=== PATIENT | female | born 1995 | race Caucasian/White ===

== ENCOUNTER 2017-08-13 23:29 | Emergency (ER) | payer OTHER, SELFPAY ==
--- NOTE | 2017-08-13 12:35 | RAD_ITS ---
STUDY: X-RAY CHEST REASON FOR EXAM: Female, 22 years old. Cough, shortness of breath, lightheadedness, chest pressure. Recent history of bronchitis. TECHNIQUE: PA and lateral chest. COMPARISON: None. FINDINGS: The lungs are clear and expanded. There is no demonstrated pleural abnormality. Normal size heart. Normal mediastinum and milagro. Normal visualized pulmonary arteries. Normal visualized aortic arch and descending thoracic aorta. Normal visualized thoracic spine. Normal visualized ribs, clavicles, and shoulders. There is no demonstrated abnormality of the visualized soft tissue structures of the upper abdomen. RAD/Chest PA and Lateral IMPRESSION: Normal x-ray examination of the chest. Electronically Signed: Lowell Mora MD at 0:50 EDT , Service support ,
[2017-08-13 23:30] VITALS: BP 120/88; PULSE 78; RESP 15; TEMP 36.7; O2SAT 98; BMI 23.3
--- NOTE | 2017-08-13 23:54 | ED.DCSUM_ITS ---
- ER Visit Summary Date of Service: 08/13/17 Chief Complaint: Two-week history of a cough. History of Present Illness: The patient is a 22 F history of exercise-induced asthma and vocal cord dysfunction. He states for the last 2 weeks she has had a productive cough. Of greenish sputum at times with hard coughing blood- tinged but that is since resolved. No fever. She just feels like she cannot take a deep breath. She was seen at an area urgent care was placed on a medication which she is unsure what it was but she took it 3 times a day it sounds like it may have been amoxicillin. That is now finished. She is not getting better. Feels like she cannot take a deep breath. No chest pain. No abdominal pain. No vomiting or diarrhea. Physical Examination: Well appearing young female. Vital signs are stable afebrile. Her pulse ox is 90% on room air no hypoxia. No distress. H EENT exam unremarkable moist mucous membranes. Neck nontender no lymphadenopathy. No meningismus. Lungs dry hacking cough bilaterally. However no rales, rhonchi or wheezing at this time. Equal and symmetrical. Heart regular rhythm no murmur rate about 70. Abdomen is soft and nontender. Normal bowel sounds no peritoneal signs. She is moving all 4 extremities. They are neurovascularly intact. The lower extremities are nontender without edema or cords. Calves are nontender. Back exam nontender. Neurologically she is awake and alert. Test Results: Chest x-ray two-view shows Emergency Department Course and Treatment: Patient treated with p.o. Hycodan for the cough. A DuoNeb aerosol treatment. Treatment Plan: Patient will be treated as a viral bronchitis. She does not need antibiotics. She will be written for Hycodan for her cough. Disposition: Discharge Impression: Acute viral bronchitis This note was generated with [employer] dictation software. It may contain incorrect words, spelling, and punctuation that were not noted in review of the chart prior to signing ED Disposition - Plan for ED Patient: Chief Complaint: Asthma Referrals: Randall Naranjo III, MD [Primary Care Provider] -
--- NOTE | 2017-08-13 23:54 | ED.DEP ---
ED Disposition - Plan for ED Patient: Disposition: Home or Assisted Living Chief Complaint: Asthma Prescriptions: Hydrocodone Bit/Homatropine [Hycodan Syrup] 10 ml GT Q6H PRN PRN #100 udc PRN Reason: Cough Referrals: Randall Naranjo III, MD [Primary Care Provider] - 10-14 Days if not better Additional Instructions: Plenty of fluids and rest Hycodan cough syrup as needed. This has codeine in it. Do not use a cough syrup and then drive. Can use 5-10 mL time. This should also help her sleep. This may last 1-2 more weeks. Clinically and historically this appears to be a viral syndrome and needs no antibiotic treatment will not be beneficial.
[2017-08-13] MEDS: Ipratropium/Albuterol Sulfate 3 ML AMPUL.NEB INHALATION (23:56)
[2017-08-13 23:57] VITALS: PULSE 98; RESP 15
[2017-08-14 00:58] VITALS: PULSE 93; RESP 18; O2SAT 97
== END 2017-08-14 00:59 | disposition home or self-care (01) ==
PROVIDERS: Emergency Provider Emergency Medicine; Family Provider Family Medicine; PCP Family Medicine
DX: J20.8 Acute bronchitis due to other specified organisms (principal); J45.909 Unspecified asthma, uncomplicated
CPT/HCPCS: 71046; 94640; 99282

== ENCOUNTER → 2024-02-13 | Outpatient (CLI) | payer BC, SELFPAY ==
[2024-02-20 18:05] LABS: HPV Reflexed? NOT INDICATED
== END | disposition home or self-care (01) ==
LOC: US 02-14 15:47 → LABSPEC 02-21 16:49
PROVIDERS: Referring Provider Nurse Practitioner Family; Visit Provider Nurse Practitioner Family
DX: Z12.4 Encounter for screening for malignant neoplasm of cervix (principal)
CPT/HCPCS: 88175; G0145

== ENCOUNTER → 2024-02-15 | Outpatient (CLI) | payer BC, SELFPAY ==
--- OUTSIDE RECORDS SUMMARY | 2024-02-15 07:06 | XMS RPT_ITS | CCD ---
Author Organization [facility] Inform ion Partnership [facility] Care Team Providers Care Wellness Nurse Name Role Phone Jose A ODELL MD, Rody Slade Primary Care Provider Radha rosibel Betancourt MD, Kyle Arriola Primary Care Provider Bridenthal SANDIP, Joaquina Primary Care Provider NANCY ORDOÑEZ Attending Unavailable BRIDENTHAL, JOAQUINA Primary Care Unavailable DIVYA NATION Attending Unavail able RODY NARANJO III Primary Care Unavailable BRIDENTHAL, JOAQUINA Primary Care Unavailable ORDOÑEZ, NANCY Attending Unavailable BRIDENTHAL, JOAQUINA Primary Care Unavailable ORDOÑEZ NANCY Attending Unavailable ORDOÑEZ, NANCY Referring Unavailable BRIDENTHAL, JOAQUINA Primary Care Unavailable BRIDENTHAL, JOAQUINA Attending Unavailable RASHIDA, KYLE Primary Care Unavailable BRIDENTHAL, JOAQUINA Attending Unavailable RASHIDA, KYLE Primary Care Unavailable BRIDENTHAL, JOAQUINA Attending Unavailable RASHIDA, KYLE Primary Care Unavailable BRIDENTHAL, JOAQUINA Attending Unavailable RASHIDA, KYLE Primary Care Unavailable BRIDENTHAL, JOAQUINA Attending Unavailable RASHIDA, KYLE Primary Care Unavailable Allergies Allergy Classification Reported Allergen(s) Allergy Type Date of Onset Reaction(s) Facility (16 sources) Grass pollen; Translations: [GRASS POLLEN] Drug Allergy 3 Unknown, Other: See Comments [facility] (16 sources) Seasonal allergy; Translations: [SEASONAL ALLERGIES] Allergy to substance 3 Unknown, Other: See Comments [facility] (16 sources) Tree; Translations: [TREES] Allergy to substance 3 Unknown, Other: See Comments [facility] (6 sources) Grass pollen Drug Allergy 3 Unknown [facility] (6 sources) Other Allergy to substance 3 Unknown [employer] (1 source) Pollen Allergy to substance 3 Other [facility] [place] [facility] Medications Current Medications Medication Drug Class(es) Dates Sig (Normalized) Sig (Original) 24 hr buPROPion hydrochloride 300 mg extended release oral tablet (7 sources) Aminoketone Start: 09-08-2023 take 1 tablet by mouth once daily in the morning buPROPion XL (Wellbutrin XL) 300 MG 24 hr tablet Indications: Anxiety and depression take 1 tablet by mouth every morning DO NOT CRUSH, CHEW, AND/OR DIVIDE 30 tablet 2 09/08/2023 Active Start: 05-16-2023 End: 07-15-2023 take 1 tablet by mouth once daily in the morning buPROPion XL (WELLBUTRIN XL) 150 mg 24 hr tablet Take 150 mg by mouth every morning. 0 05/16/2023 Active Comment on above: Take 150 mg by mouth every morning. Desogestrel / Ethinyl Estradiol (2 sources) Progestin, Estrogen Start: 4 End: 5 take 1 tablet by mouth once daily, then take 0.15 tablet by mouth once Desogestrel-Ethinyl Estradiol (APRI) 0.15-0.03 mg per tablet Indications: PCOS (polycystic ovarian syndrome) , Provided repeat prescription for oral contraceptive Take 1 tablet by mouth once daily. 84 tablet 3 07/14/2023 06/14/2024 Active take 1 tablet by mouth once sarah y Juleber 0.15-30 MG-MCG tablet Take 1 tablet by mouth daily. 0 Active Comment on above: Take 1 tablet by pablo once daily. metFORMIN hydrochloride 500 mg oral tablet (6 sources) Biguanide Start: 4 End: 4 take 2 tablets by mouth twice daily at mealtime metFORMIN (GLUCOPHAGE) 500 mg tablet Indications: PCOS (polycystic ovarian syndrome) , IFG (impaired fasting glucose) , Irregular menses , Overweight with body mass index (BMI) of 29 to 29.9 in adult Take 2 tablets by mouth two times a day with meals. 360 tablet 0 06/16/2023 09/14/2023 Active Start: 05-18-2023 End: 08-16-2023 take 1 tablet by mouth in the morning metFORMIN (Glucophage) 500 MG tablet Take 1 tablet by mouth in the morning and 1 tablet in the evening. Take with meals. 0 05/18/2023 Active Comment on above: Take 2 tablets by mo uth two times a day with meals. Take 1 tablet by pablo th two times a day with meals. naltrexone hydrochloride 50 mg oral tablet (2 sources) Opioid Antagonist Start: 4 End: 4 take 0.5 tablet by mouth twice daily naltrexone 50 mg tablet Indications: PCOS (polycystic ovarian syndrome) , Overweight with body mass index (BMI) of 29 to 29.9 in adult Take 0.5 tablets by mouth two times a day. 90 tablet 0 07/14/2023 10/12/2023 Active naltrexone (Depa de) 50 MG tablet Take 25 mg by mouth in the morning and 25 mg in the evening. 0 Active Comment on above: Take 0.5 tablets by mouth two times a day. Gtfcjjxd-Irr-Zw-FA (/IRON PO) (3 sources) take 1 tablet by mouth once in the morning Phxojolv-Qna-Np-FA (/IRON PO) Take 1 tablet by mouth in the morning. 0 Active Completed/Discontinued Medications Medication Drug Class(es) Dates Sig (Normalized) Sig (Original) [id number] 200 actuat albuterol 0.09 mg/actuat metered dose inhaler (15 sources) beta2-Adrenergic Agonist Start: 03-19-2019 take 2 puff(s) by inhalation every four hours as needed albuterol HFA (PROVENTIL HFA, VENTOLIN HFA) 90 mcg/actuation inhaler Indications: Exertional asthma Inhale 2 Puffs as instructed every 4 hours as needed. 1 Inhaler 0 03/19/2019 Active Comment on above: Inhale 2 Puffs as in structed every 4 hours as needed. drospirenone / Ethinyl Estradiol (1 source) Progestin, Estrogen Start: 11-29-2022 take 1 tablet by mouth once daily, then take 1 tablet by mouth once Drospirenone-Ethin yl Estradiol (ANTONY, 28,) 3-0.03 mg per tablet Indications: PCOS (polycystic ovarian syndrome) Take 1 tablet by mouth once daily. Take one active pill continuously x 3 months- discard placebo pills 112 tablet 3 11/29/2022 Active Comment on above: Take 1 tablet by pablo th once daily. Take one active pill continuously x 3 months- discard placebo pills escitalopram 20 mg oral tablet (3 sources) Serotonin Reuptake Inhibitor Start: 04-08-2023 End: 05-16-2023 take 1 tablet by mouth once daily escitalopram (Lexapro) 20 MG tablet Indications: Anxiety and depression Take 1 tablet (20 mg) by mouth daily. 30 tablet 1 04/08/2023 05/16/2023 Discontinued (Ineffective) Start: 03-08-2023 End: 06-06-2023 take 1 tablet by mouth once daily escitalopram (Lexapro) 10 MG tablet Indications: Anxiety and depression Take 1 tablet (10 mg) by mouth daily. 30 tablet 1 03/08/2023 06/06/2023 Active Ethinyl Estradiol / Norethindrone (12 sources) Estrogen Start: 10-06-2022 End: 11-29-2022 take 1 tablet by mouth once daily, then take 0.05 tablet by mouth once Norethindrone Acet-Ethinyl Est (,) 1-20 mg-mcg per tablet TAKE 1 TABLET BY MOUTH DAILY 28 tablet 2 10/06/2022 11/29/2022 Discontinued Start: 10-06-2022 take 1 tablet by pablo th once daily, then take 0.05 tablet by mouth once Norethindrone Acet-Ethinyl Est (05/14, ,) 1-20 mg-mcg per tablet TAKE 1 TABLET BY MOUTH DAILY 28 tablet 2 10/06/2022 Active Start: 07-01-2022 End: 10-06-2022 take 1 tablet by mouth once daily, then take 0.05 tablet by mouth once Norethindrone Acet-Ethinyl Est (05/14, ,) 1-20 mg-mcg per tablet TAKE 1 TABLET BY MOUTH DAILY 28 tablet 3 07/01/2022 10/06/2022 Discontinued Start: 07-01-2022 take 1 tablet by pablo th once daily, then take 0.05 tablet by mouth once Norethindrone Acet-Ethinyl Est (,) 1-20 mg-mcg per tablet TAKE 1 TABLET BY MOUTH DAILY 28 tablet 3 07/01/2022 Active Start: 06-30-2022 End: 07-01-2022 take 1 tablet by mouth once daily, then take 0.05 tablet by mouth once Norethindrone Acet-Ethinyl Est (,) 1-20 mg-mcg per tablet TAKE 1 TABLET BY MOUTH DAILY 28 tablet 3 06/30/2022 07/01/2022 Discontinued Start: 10-20-2021 End: 03-30-2022 take 1 tablet by mouth once daily, then take 0.05 tablet by mouth once Norethindrone Acet-Ethinyl Est (,) 1-20 mg-mcg per tablet TAKE 1 TABLET BY MOUTH DAILY 28 tablet 14 10/20/2021 03/30/2022 Discontinued Start: 10-20-2021 take 1 tablet by pablo th once daily, then take 0.05 tablet by mouth once Norethindrone Acet-Ethinyl Est (,) 1-20 mg-mcg per tablet TAKE 1 TABLET BY MOUTH DAILY 28 tablet 14 10/20/2021 Active Start: 05-30-2020 End: 10-20-2021 take 1 tablet by mouth once daily, then take 0.05 tablet by mouth once Norethindrone Acet-Ethinyl Est (,) 1-20 mg-mcg per tablet TAKE 1 TABLET BY MOUTH DAILY TAKES ACTIVE TABLET CONTINUOUSLY 84 tablet 3 05/30/2020 10/20/2021 Discontinued Comment on above: TAKE 1 TABLET BY PABLO TH DAILY TAKES ACTIVE TABLET CONTINUOUSLY TAKE 1 TABLET BY PABLO TH DAILY medroxyPROGESTERone acetate 10 mg oral tablet (4 sources) Progestin Start: 2021 End: 2022 take 1 tablet by mouth once daily medroxyPROGESTERone (PROVERA) 10 mg tablet Take 1 tablet by mouth once daily for 10 days. Or until menses starts. 10 tablet 0 04/13/2022 06/30/2022 Discontinued Comment on above: Take 1 tablet by pablo th once daily for 10 days. Or until menses starts. PNV/iron/folic acid ( UWDBCSP-EHEA-IV ORAL) (2 sources) take 1 tablet by mouth once daily PNV/iron/folic acid ( YATWSLH-LNKG-FE ORAL) Take 1 tablet by mouth once daily. 0 Active Comment on above: Take 1 tablet by pablo th once daily. MV-Min-Fe Fum-FA-DHA ( 1 PO) (6 sources) End: 2023 MV-Min-Fe Fum-FA-DHA ( 1 PO) Take by mouth. 0 09/15/2023 Discontinued (Duplicate order) MV-Min- Fe Fum-FA-DHA ( 1 PO) Take by mouth. 0 Active Problems Active Problems Problem Classification Problem Date Documented Date Episodic/Chronic Anxiety disorders (18 sources) Mixed anxiety and depressive disorder; Translations: [Anxiety disorder, unspecified] Onset: 03-08-2023 03-23-2023 Chronic Asthma (8 sources) Asthma; Translations: [Unspecified asthma, uncomplicated] Onset: 09-04-2010 03-08-2023 Chronic Contraceptive and procreative management (2 sources) Oral contraceptive repeat; Translations: [Encounter for surveillance of contraceptive pills] Onset: 07-14-2023 07-14-2023 Episodic Diabetes mellitus without complication (1 source) Impaired fasting glycemia; Translations: [Impaired fasting glucose] 06-16-2023 Episodic Disorders of lipid metabolism (3 sources) Raised low density lipoprotein cholesterol; Translations: [Pure hypercholesterolemia, unspecified] Onset: 05-18-2023 06-16-2023 Chronic Female infertility (1 source) Anovulation; Translations: [Female infertility associated with anovulation] Chronic Menstrual disorders (6 sources) Intermenstrual bleeding - irregular; Translations: [Excessive and frequent menstruation with irregular cycle] Onset: 07-14-2023 Chronic Mood disorders (9 sources) Mood disorders; Translations: [Anxiety and depression] Onset: 03-08-2023 03-23-2023 Other endocrine disorders (14 sources) Polycystic ovary syndrome; Translations: [Polycystic ovarian syndrome] Onset: 07-05-2021 Chronic Other endocrine disorders (1 source) Polycystic ovarian syndrome; Translations: [PCOS (polycystic ovarian syndrome)] Onset: 05-18-2023 Chronic Other female genital disorders (1 source) Abnormal uterine bleeding; Translations: [Abnormal uterine and vaginal bleeding, unspecified] Chronic Other nervous system disorders (2 sources) Skin sensation disturbance; Translations: [Unspecified disturbances of skin sensation] Onset: 09-15-2023 09-15-2023 Episodic Other nutritional; endocrine; and metabolic disorders (3 sources) Overweight in adulthood with body mass index of 25 or more but less than 30; Translations: [Overweight] Onset: 07-14-2023 06-16-2023 Episodic Other nutritional; endocrine; and metabolic disorders (1 source) Overweight; Translations: [Overweight with body mass index (BMI) of 29 to 29.9 in adult] Onset: 07-14-2023 Episodic Other nutritional; endocrine; and metabolic disorders (1 source) Body mass index (BMI) 29.0-29.9, adult; Translations: [Overweight with body mass index (BMI) of 29 to 29.9 in adult] Onset: 07-14-2023 Episodic Screening and history of mental health and substance abuse codes (8 sources) History of bulimia nervosa; Translations: [Personal history of other mental and behavioral disorders] Onset: 07-14-2023 06-16-2023 Episodic Unclassified (2 sources) Medication Check; Translations: [Medication Check] Onset: 06-15-2023 Past or Other Problems Problem Classification Problem Date Documented Da te Episodic/Chronic Other nutritional; endocrine; and metabolic disorders (7 sources) Weight gain; Translations: [Abnormal weight gain] Onset: 05-16-2023 05-16-2023 Episodic Other screening for suspected conditions (not mental disorders or infectious disease) (20 sources) Patient encounter status; Translations: [Encounter for screening for malignant neoplasm of cervix] Onset: 12-02-2021 Episodic Other skin disorders (18 sources) Hirsutism; Translations: [Hirsutism] Onset: 07-05-2021 12-02-2021 Episodic Other upper respiratory disease (20 sources) Vocal cord dysfunction; Translations: [Other diseases of vocal cords] Onset: 09-07-2011 09-07-2011 Episodic Other upper respiratory disease (2 sources) Other diseases of vocal cords; Translations: [Other diseases of vocal cords] Onset: 03-08-2023 Episodic Results Test Name Value Interpretation Reference Range Facil [facility] 36on 12-05-2023 36 Not due for refill. [facility] 36 Refill not yet due. [facility] Office Visiton 09-15-2023 Follow-up visit [id number] Diogenes Conti 1995 F Date Provider Department Center 09/15/2023 [id number] SCHMITZ [facility] Family History Problem Relation Age of Onset Thyroid disease Mother Alcaraz syndrome Father Asthma Sister Breast cancer Maternal Grandmother Cancer Maternal Grandfather Cancer Paternal Grandfather Family Status - Relation Status Age at Mother Alive Father Alive Sister Sister Maternal Grandmother Maternal Grandfather Paternal Grandmother Alive Paternal Grandfather Level of Service:[id number] OK OFFICE/OUTPATIENT ESTABLISHED LOW MDM 20 MIN Reason for Visit and Comments: Medication Check [[id number]] Foot Problem [229] [facility] PATINSon 09-15-2023 PATINS Ice and elevate foot couple times a day, be careful not to wear shoes that pinch/pressure to much on top of foot. [facility] Progress Noteon 09-15-2023 Progress Note Stable. Continue Wellbutrin 300 mg daily [facility] Progress Note Left foot exam unremarkable and currently asymptomatic. Likely superficial nerve inflammation. Recommend avoiding shoes that are tight across the top of the foot, ice and elevate 2-3 times daily and follow-up if fails to resolve. Unknown etiology at this time otherwise [facility] Progress Note 09/15/2023 David Conti (: 1995) is a 28 y.o. female , Established patient, here for evaluation of the following chief complaint(s): Medication Check and Foot Problem ASSESSMENT/PLAN: 1. Anxiety and depression Assessment & Plan: Stable. Continue Wellbutrin 300 mg daily 2. Skin sensation disturbance Assessment & Plan: Left foot exam unremarkable and currently asymptomatic. Likely superficial nerve inflammation. Recommend avoiding shoes that are tight across the top of the foot, ice and elevate 2-3 times daily and follow-up if fails to resolve. Unknown etiology at this time otherwise Follow up in about 6 months (around 03/17/2024) for Yearly Wellness Visit. SUBJECTIVE/OBJECTIVE: HPI - David Cnoti (: 1995) is a 28 y.o. female , Established patient, here for the evaluation of the following chief complaint(s): Medication Check and Foot Problem Anxiety/depression- Doing pretty well, wellbutrin XL 300 mg daily. Denies any SI or HI. Not doing counseling. Reports being able to handle stress better and not feeling as overwhelmed. Left foot problem: Is having a hot sensation/tingling to the top of the left foot and numbness. No known trigger. No known injury. Happening for about 1.5 weeks, will happen intermittently through the day (?50 times or so)- lasts only for a few seconds or so. No swelling or redness noted. Currently asymptomatic Prior to Admission medications Medication Sig Start Date End Date Taking? Authorizing Provider buPROPion XL (Wellbutrin XL) 300 MG 24 hr tablet take 1 tablet by mouth every morning DO NOT CRUSH, CHEW, AND/OR DIVIDE 09/08/23 Yes Tara Herrera APRN - CATIA DESIGNER Juleber 0.15-30 MG-MCG tablet Take 1 tablet by mouth daily. Yes Historical Provider, metFORMIN (Glucophage) 500 MG tablet Take 1 tablet by mouth in the morning and 1 tablet in the evening. Take with meals. 05/18/23 09/15/23 Yes Historical Provider, naltrexone (Depade) 50 MG tablet Take 25 mg by mouth in the morning and 25 mg in the evening. Yes Historical Provider, Pfuxiqrj-Zpl-Ie-FA (/IRON PO) Take 1 tablet by mouth in the morning. Yes Historical Provider, MV-Min-Fe Fum-FA-DHA ( 1 PO) Take by mouth. Historical Provider, Review of Systems Constitutional: Negative for activity change, chills, fatigue and fever. Respiratory: Negative. Cardiovascular: Negative. Gastrointestinal: Negative. Genitourinary: Negative for difficulty urinating. Musculoskeletal: Left foot. Psychiatric/Behavioral : Positive for decreased concentration. Negative for agitation, dysphoric mood and sleep disturbance. The patient is not nervous/anxious. Vitals: 09/15/23 1307 BP: 129/85 Pulse: 102 Resp: 18 Temp: 36.9 ?C (98.4 ?F) TempSrc: Infrared SpO2: 97% Weight: 161 lb 9.6 oz (73.3 kg) Physical Exam Constitutional: General: She is not in acute distress. Appearance: Normal appearance. She is not ill-appearing. HENT: Head: Normocephalic and atraumatic. Cardiovascular: Rate and Rhythm: Normal rate and regular rhythm. Pulses: Normal pulses. Heart sounds: Normal heart sounds. Pulmonary: Effort: Pulmonary effort is normal. Breath sounds: Normal breath sounds. Musculoskeletal: Right foot: Normal. Left foot: Normal. Comments: Left foot exam normal Skin: General: Skin is warm and dry. Neurological: Mental Status: She is alert and oriented to person, place, and time. Psychiatric: Mood and Affect: Mood normal. Behavior: Behavior normal. Thought Content: Thought content normal. Judgment: Judgment normal. An electronic signature was used to authenticate this note. Joaquina Schmitz APRN - SANDIP 09/15/2023 4:40 PM [facility] Progress Note Patient was identifi ed by name and Date of . [facility] 36on 09-08-2023 36 Rx sent. Follow up a s scheduled. [facility] 36 Prescription Request : Last medication check: 06/15/23 Last physical exam: 03/23/23 Next scheduled appointment: 09/15/23 Last date of refill on this medication 07/14/23 [facility] CNOVon 07-14-2023 CNOV Office Visit (OBGYWM ) DAVID CONTI ([id number]) 1995 F Date Time Provider Department 07/14/23 7:30 AM NANCY ORDOÑEZ During your visit today, we recorded the following information about you: Pulse Blood pressure Weight 80/minute 126/82 75.8 kg Nancy Ordoñez APRN.CNP 07/14/2023 8:47 AM Signed Some documentation from previous visit of 06/16/2023 was copied and pasted, documentation has been reviewed and edited as necessary for today's visit. Patient Summary: David is a 28 year old female who presents for follow-up evaluation of her obesity/weight management to treat PCOS, IFG, elevated LDL, anxiety and depression and prevent relatedco-morbidities. In our previous visits we have discussed lifestyle intervention including a nutrition recommendations and physical activity optimization. Her last office visit was 1 month ago. Irregular menses - Menses 03/17/2023 LMP 1/2-3 spotting No contraception. 20 lb weight gain with Lexapro for anxiety. Changed to bupropion by PCP plans to discuss increasing dose with PCP Assessment/plan from last visit: Metformin 1 gm twice a day with meals - Adjusted to 500 mg at breakfast and 1 gm at dinner but has had frequent diarrhea since increasing to 1 gm twice a day 3 weeks ago. 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 Dad helped her and she started adding protein shakes. 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 1 mile daily walk with dog Stress: increased - wearing heart monitor Sleep: 7 hours, up to go to bathroom a few times WILDER -no Weight gain since last vist: 2 lbs since last visit 07/14/2023 167 lb BMI: 28.67 06/16/2023 169 lb 05/18/2023 166 lb metformin CrCl cannot be calculated (Patient's most recent lab result is older than the maximum 180 days allowed.). PAST MEDICAL HISTORY Diagnosis Date Exertional asthma 07/28/2011 Generalized anxiety disorder IFG (impaired fasting glucose) 05/18/2023 Medial meniscus tear 07/28/2011 PCOS (polycystic ovarian syndrome) 2021 Unspecified otitis media Recurrent otitis Vocal cord dysfunction 09/07/2011 Current Outpatient Medications Medication Sig Dispense Refill metFORMIN (GLUCOPHAGE) 500 mg tablet Take 2 tablets by mouth two times a day with meals. 360 tablet 0 buPROPion XL (WELLBUTRIN XL) 150 mg 24 hr tablet Take 150 mg by mouth every morning. PNV/iron/folic acid ( JEPRAIP-PVRV-DE ORAL) Take 1 tablet by mouth once daily. albuterol HFA (PROVENTIL HFA, VENTOLIN HFA) 90 mcg/actuation inhaler Inhale 2 Puffs as instructed every 4 hours as needed. 1 Inhaler 0 No current facility-administered medications for this visit. 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 Assessment/Plan: David Conti is a 28 year old yo female with overweight (pre-obesity) who presented today for follow up for supervised weight loss to treat PCOS, IFG, elevated LDL, anxiety and depression and prevent related co-morbidities. ASSESSMENT/PLAN: 1. PCOS (polycystic ovarian syndrome) - ICD9: 256.4, ICD10: E28.2 (primary diagnosis) - Whole food balanced protein low-carb nutrition - METFORMIN 500 MG TABLET - DESOGESTREL 0.15 MG-ETHINYL ESTRADIOL 0.03 MG TABLET - NALTREXONE 50 MG TABLET 2. Irregular menses - ICD9: 626.4, ICD10: N92.6 - DESOGESTREL 0.15 MG-ETHINYL ESTRADIOL 0.03 MG TABLET 3. Anxiety and depression - ICD9: 300.00, 311, ICD10: F41.9, F32.A - Continue bupropion prescribed by PCP- she plans to discuss increasing dose with PCP 4. History of bulimia - ICD9: V11.8, ICD10: Z86.59 - in remission since age 19 5. History of anorexia nervosa - ICD9: V11.8, ICD10: Z86.59 - in remission since age 19 6. Provided repeat prescription for oral contraceptive - ICD9: V25.41, ICD10: Z30.41 - RX for Apri given today. - discussed with patient on how to take OCP's.Given written information - counseled on benefits, risks and possible severe side effects of OCP's. - discussed need to use Condoms to help to prevent STD's including HIV etc. - DESOGESTREL 0.15 MG-ETHINYL ESTRADIOL 0.03 MG TABLET 7. Overweight with body mass index (BMI) of 29 to 29.9 in adult - ICD9: 278.02, V85.25, ICD10: E66.3, Z68.29 - METFORMIN 500 MG TABLET - decrease to 500 mg with breakfast and 1 gm with dinner due to diarrhea with 1 gm twice daily - DESOGESTREL 0.15 MG-ETHINYL ESTRADIOL 0.03 MG TABLET - NALTREXONE 50 (more content not included)... [facility] CNOVon 06-16-2023 CNOV Office Visit (OBGYWM ) DAVID CONTI ([id number]) 1995 F Date Time Provider Department 06/16/23 7:00 AM NANCY ORDOÑEZ During your visit today, we recorded the following information about you: Blood pressure Weight Last Period 116/84 76.7 kg 04/26/23 Nancy Ordoñez APRN.CATIA DESIGNER 06/16/2023 7:59 PM Signed Some documentation from previous visit of 05/18/2022 was copied and pasted, documentation has been reviewed and edited as necessary for today's visit. Patient Summary: David is a 27 year old female who presents for follow-up evaluation of her obesity/weight management to treat PCOS, IFG, elevated LDL, anxiety and depression and prevent relatedco-morbidities. In our previous visits we have discussed lifestyle intervention including a nutrition recommendations and physical activity optimization. Her last office visit was 1 month ago. Irregular menses - Menses 03/17/2023 LMP 1/2-3 spotting 20 lb weight gain with Lexapro for anxiety. Changed to bupropion by PCP. Assessment/plan from last visit: Metformin 500 mg twice a day with meals - tried 1 gm at dinner but had nausea and mild diarrhea (actually took at bedtime) Bupropion 150 mg 24/hr tab for anxiety and depression Was in [place] with who races - very hectic travel. Tried to eat healthier. Quit second job so life is becoming more calm History of anorexia and bulimia in HS - no treatment, Dad helped her and she started adding protein shakes. Interval History - changes made in past month Awake - 0700 but is changing to 0520 to exercise before work B - 0745 Premier Protein shake S - none L - SKIP S - none D - 1830 protein, pasta/potato/rice/swee t potato and veg - asparagus, cucumber salad, winter and summer squash S - none or Skinny popcorn Fluids - water, zero sugar electrolyte drink mixes, unsweetened tea Bedtime - She feels the medication is helping to lessen hunger and craving to candy Exercise: stable sedentary job at [employer]. Just got gym membership - walking and free weights Stress: decreased - races and season has not started yet and decreased stress after quitting second job Sleep: 7 hours, well rested WILDER -no Weight gain since last vist: 3 lbs since last visit 06/16/2023 169 lb 05/18/2023 166 lb metformin CrCl cannot be calculated (Patient's most recent lab result is older than the maximum 180 days allowed.). PAST MEDICAL HISTORY Diagnosis Date Exertional asthma 07/28/2011 Generalized anxiety disorder IFG (impaired fasting glucose) 05/18/2023 Medial meniscus tear 07/28/2011 PCOS (polycystic ovarian syndrome) 2021 Unspecified otitis media Recurrent otitis Vocal cord dysfunction 09/07/2011 Current Outpatient Medications Medication Sig Dispense Refill buPROPion XL (WELLBUTRIN XL) 150 mg 24 hr tablet Take 150 mg by mouth every morning. PNV/iron/folic acid ( AWYWMBE-AXVG-CK ORAL) Take 1 tablet by mouth once daily. metFORMIN (GLUCOPHAGE) 500 mg tablet Take 1 tablet by mouth two times a day with meals. 180 tablet 0 albuterol HFA (PROVENTIL HFA, VENTOLIN HFA) 90 mcg/actuation inhaler Inhale 2 Puffs as instructed every 4 hours as needed. 1 Inhaler 0 No current facility-administered medications for this visit. BP 116/84 Wt 169 lb (76.7 kg) LMP 04/26/2023 BMI 29.01 kg/m? Assessment/Plan: David Conti is a 27 year old yo female with overweight (pre-obesity) who presented today for follow up for supervised weight loss to treat PCOS, IFG, elevated LDL, anxiety and depression and prevent related co-morbidities. ASSESSMENT/PLAN: 1. PCOS (polycystic ovarian syndrome) - ICD9: 256.4, ICD10: E28.2 (primary diagnosis) - Whole food balanced protein low-carb nutrition - METFORMIN 500 MG TABLET 2. Elevated LDL cholesterol level - ICD9: 272.0, ICD10: E78.00 - benefits of weight loss discussed 3. IFG (impaired fasting glucose) - ICD9: 790.21, ICD10: R73.01 - METFORMIN 500 MG TABLET 4. Irregular menses - ICD9: 626.4, ICD10: N92.6 - METFORMIN 500 MG TABLET 5. Anxiety and depression - ICD9: 300.00, 311, ICD10: F41.9, F32.A - well-controlled with bupropion 6. History of bulimia - ICD9: V11.8, ICD10: Z86.59 - in remission 7. History of anorexia nervosa - ICD9: V11.8, ICD10: Z86.59 - in remission 8. Overweight with body mass index (BMI) of 29 to 29.9 in adult - ICD9: 278.02, V85.25, ICD10: E66.3, Z68.29 - METFORMIN 500 MG TABLET - continue to increase dose as tolerated - Recommended whole food low-carb diet with 30 g of protein 3 times a day and 30 g of carbs at lunch and dinner only. Given tracking log. - Given 15 gram carb whole food and protein suggestion list. - Given protein snack ideas - continue exercise Lengthy discussion regarding history of anorexia and bulimia which is in remission. Discussed appropriate amount of exercise. We agreed that in-office visits (more content not included)... Normal [facility] Office Visiton 06-15-2023 Follow-up visit [id number] Diogenes Conti 1995 F Date Provider Department Center 06/15/2023 [id number] SCHMITZ [facility] Family History Problem Relation Age of Onset Thyroid disease Mother Alcaraz syndrome Father Asthma Sister Breast cancer Maternal Grandmother Cancer Maternal Grandfather Cancer Paternal Grandfather Family Status - Relation Status Age at Mother Alive Father Alive Sister Sister Maternal Grandmother Maternal Grandfather Paternal Grandmother Alive Paternal Grandfather Level of Service:94541 OK OFFICE/OUTPATIENT ESTABLISHED MOD MDM 30 MIN Reason for Visit and Comments: Medication Check [[id number]] [facility] PATINSon 06-15-2023 PATINS Asked about extended release metformin. Give update in about a month- if you want to increase dose of Wellbutrin or not [facility] Progress Noteon 06-15-2023 Progress Note Recommend following up with [employer] regarding side effects of metformin and requesting if she can take extended release metformin to see if that is better tolerated. [facility] Progress Note Denies any suicidal or homicidal ideation. Anxiety and depression have improved we will continue Wellbutrin 150 mg daily, patient to give us an update in about 1 month via [employer] if she would like to increase the dose to 300 mg. We will schedule her for follow-up in 3 months [facility] Progress Note Patient was identifi ed by name and Date of . [facility] Progress Note 06/15/2023 David Conti (: 1995) is a 27 y.o. female , Established patient, here for evaluation of the following chief complaint(s): Medication Check ASSESSMENT/PLAN: 1. Anxiety and depression Assessment & Plan: Denies any suicidal or homicidal ideation. Anxiety and depression have improved we will continue Wellbutrin 150 mg daily, patient to give us an update in about 1 month via [employer] if she would like to increase the dose to 300 mg. We will schedule her for follow-up in 3 months 2. PCOS (polycystic ovarian syndrome) Assessment & Plan: Recommend following up with [employer] regarding side effects of metformin and requesting if she can take extended release metformin to see if that is better tolerated. Follow up for 3 month [facility]. SUBJECTIVE/OBJECTIVE: HPI - David Conti (: 1995) is a 27 y.o. female , Established patient, here for the evaluation of the following chief complaint(s): Medication Check RACING WITH IN [place] WENT WELL, WAS SUPER BUSY. Did not get to do any sightseeing as they were busy at the track every day. Got back from [place] on June 05, 2023. Patient reports she went to agriculture laboratory technician for pcos- was started on metformin and reports that she has been having nausea and mild diarrhea with it. She has a follow-up with them tomorrow. Reports that the wellbutrin has helped anxiety and mood. Is doing better handling things. Is not. Feeling as overwhelmed, reports sleeping is getting back on schedule. Still doing amauri and yoga. Most days. Would like to keep the Wellbutrin at the current dose for now Prior to Admission medications Medication Sig Start Date End Date Taking? Authorizing Provider buPROPion XL (Wellbutrin XL) 150 MG 24 hr tablet Take 1 tablet (150 mg) by mouth every morning. Do not crush, chew, or split. 05/16/23 07/15/23 Yes JACINTO Roth CNP metFORMIN (Glucophage) 500 MG tablet Take 1 tablet by mouth in the morning and 1 tablet in the evening. Take with meals. 05/18/23 08/16/23 Yes Historical Provider, Vrputloh-Kbg-Rg-FA (/IRON PO) Take 1 tablet by mouth in the morning. Yes Historical Provider, MV-Min-Fe Fum-FA-DHA ( 1 PO) Take by mouth. Yes Historical Provider, Review of Systems Constitutional: Negative for activity change, chills, fatigue and fever. HENT: Negative. Negative for congestion. Respiratory: Negative. Cardiovascular: Negative. Gastrointestinal: Positive for diarrhea and nausea. Negative for abdominal pain and vomiting. Genitourinary: Positive for menstrual problem (Irregular menses due to PCOS). Neurological: Negative. Vitals: 06/15/23 0735 BP: 112/69 Pulse: 94 Resp: 18 Temp: 37 ?C (98.6 ?F) TempSrc: Infrared SpO2: 98% Weight: 170 lb 3.2 oz (77.2 kg) Physical Exam Constitutional: Appearance: Normal appearance. HENT: Head: Normocephalic and atraumatic. Mouth/Throat: Mouth: Mucous membranes are moist. Pharynx: Oropharynx is clear. No posterior oropharyngeal erythema. Cardiovascular: Rate and Rhythm: Normal rate and regular rhythm. Pulses: Normal pulses. Heart sounds: Normal heart sounds. Pulmonary: Effort: Pulmonary effort is normal. Breath sounds: Normal breath sounds. Skin: General: Skin is warm and dry. Neurological: Mental Status: She is alert and oriented to person, place, and time. Psychiatric: Mood and Affect: Mood normal. Behavior: Behavior normal. Thought Content: Thought content normal. Judgment: Judgment normal. An electronic signature was used to authenticate this note. JACINTO Roth CNP 06/15/2023 9:35 AM [facility] CNOVon 05-18-2023 CNOV Office Visit (OBGYWM ) DAVID CONTI ([id number]) 1995 F Date Time Provider Department 05/18/23 7:00 AM NANCY ORDOÑEZ OBBRADWEstelita During your visit today, we recorded the following information about you: Blood pressure Weight Last Period 100/72 75.3 kg 04/26/23 Nacny Ordoñez APRN.CATIA DESIGNER 05/19/2023 1:09 PM Signed David Daugherty Jeannette is a 27 year old female who presents for problem visit missed menses x 2 months and multiple negative home tests. HPI: Stopped OCP to attempt in December 2022. Last menses in February. Multiple home tests have all been negative. Has PCOS - recently noticing more facial hair although acne improving. 20 lb weight gain with Lexapro for anxiety. Changed to bupropion a few days ago by PCP. No previous pregnancies. Partner has 3 children. Amauri and yoga daily for exercise. Trying to eat healthy. OB History T0 L0 SAB0 IAB0 Ectopic0 Multiple0 Live Births0 Comment: 3 stepchildren [employer]ness [employer] Manager History LMP: 04/26/2023, Having periods Age at Menarche: Age at First : Age at Menopause: Wellness Spa Manager History Comments: Sexual Activity: Yes; Male; sexually active with Contraception: Pill PAST MEDICAL HISTORY Diagnosis Date Exertional asthma 07/28/2011 Generalized anxiety disorder Medial meniscus tear 07/28/2011 PCOS (polycystic ovarian syndrome) 2021 Unspecified otitis media Recurrent otitis Vocal cord dysfunction 09/07/2011 PAST SURGICAL HISTORY Procedure Laterality Date ANKLE ARTHROSCOPY Right 10/28/15 Dr. Fu FAMILY HISTORY Problem Relation Age of Onset other (Other [Other]) Paternal Grandfather leukemia Cancer Maternal Grandmother breast Asthma Sister Social History Tobacco Use Smoking status: Never Smokeless tobacco: Never Vaping Use Vaping Use: Never used Substance Use Topics Alcohol use: Yes Drug use: No Current Outpatient Medications Medication Sig buPROPion XL (WELLBUTRIN XL) 150 mg 24 hr tablet Take 150 mg by mouth every morning. PNV/iron/folic acid ( RJLTZXC-WUAD-AM ORAL) Take 1 tablet by mouth once daily. albuterol HFA (PROVENTIL HFA, VENTOLIN HFA) 90 mcg/actuation inhaler Inhale 2 Puffs as instructed every 4 hours as needed. Drospirenone-Ethinyl Estradiol (ANTONY, 28,) 3-0.03 mg per tablet Take 1 tablet by mouth once daily. Take one active pill continuously x 3 months- discard placebo pills (Patient not taking: Reported on 05/18/2023) No current facility-administered medications for this visit. Allergies As of Date: 05/18/2023 Allergen Noted Reaction GRASS POLLEN 08/23/2012 Unknown SEASONAL ALLERGIES 08/23/2012 Unknown TREES 08/23/2012 Unknown Fully Assessed 05/18/2023 REVIEW OF SYSTEMS Abdomen: No bloating, early satiety, indigestion, or increased flatulence. No abdominal pain, nausea, vomiting, diarrhea, or constipation. Bladder: No dysuria, gross hematuria, urinary frequency, urinary urgency, or incontinence. Allergies and current medication updated:Yes EXAM: BP 100/72 Wt 166 lb (75.3kg) LMP 04/26/2023 GENERAL: pleasant, female in no apparent distress CHEST: Normal inspiratory effort NEURO: alert and oriented x3,exam grossly non-focal ASSESSMENT/PLAN: 1. Irregular menses - ICD9: 626.4, ICD10: N92.6 (primary diagnosis) - HCG QUAL UR B/O - negative - METFORMIN 500 MG TABLET - HGB A1C - INSULIN ASSAY BLOOD - GLUCOSE FASTING BLD 2. PCOS (polycystic ovarian syndrome) - ICD9: 256.4, ICD10: E28.2 - METFORMIN 500 MG TABLET Agreeable to begin Metformin 500 mg with dinner daily x 1 week. If tolerating will increase to 2 tablets with dinner daily. We discussed common side effects of this medication including nausea, changes in bowel habits, abdominal discomfort, and flatulence. Discussed taking it with food and complication of lactic acidosis and signs/symptoms and medication handout given. Further instructed that if she experiences malaise, muscle aches, difficulty breathing, or severe abdominal pain to seek immediate medical attention. - HGB A1C - INSULIN ASSAY BLOOD - GLUCOSE FASTING BLD - - discussed with pt - review of PCOS with signs and symptoms. Increased risk of DMT2, CAD, infertility. Treatment discussed: weight loss to restore ovulatory cycles and reduce androgen concentrations, exercise, cyclic medroxyprogesterone to induce menses. Metformin discussed - explained that it is not considered a first-line treatment as it does not change outcomes but that it will decrease HgbA1c although weight loss will do the same. Discussed that she may need medication to induce ovulation if she does not become with lifestyle changes and weight loss. - Eat primarily whole foods. Limit carbs, especially processed carbs. - Do not drink your calories - 30 grams of protein for your first meal of the day decreases your hu (more content not included)... Normal [facility] Glucose p fast SerPl-mCncon 05-18-2023 Glucose post fast [Mass/Vol] 101 mg/dL High 74-99 [facility] Comment on above: Order Comment: Juaquin werner Type: BLOOD SPECIMEN Ordering Facility: [facility] Address: [address] [place] [address] Result Comment: Amer [place] Diabetes Association guidelines state that a diabetes mellitus diagnosis is preliminarily made when the fasting plasma glucose meets or exceeds 126 mg/dL. In the absence of unequivocal hyperglycemia, results should be confirmed with repeat testing. Patients are at increased risk for diabetes mellitus (prediabetes) when the fasting glucose is 100 to 125 mg/dL. Performed By: #### 1 558-6 #### [facility] CLIA [id number] [address] [place] [address] [place] HbA1c (Bld)on 05-18-2023 Average glucose Estimated from glycated hemoglobin (Bld) [Mass/Vol] 111 mg/dL Normal [facility] Comment on above: Order Comment: Juaquin werner Type: BLOOD SPECIMEN Ordering Facility: [facility] Address: [address] [place] [address] Result Comment: eAG: (Estimated average glucose) is a calculated value from HgbA1c and is digital media representative of the average blood glucose level in the last 2-3 month period. Performed By: #### 5 5454-3 #### [facility] CLIA [id number] [address] [place] [address] [place] HbA1c (Bld) [Mass fraction] 5.5 % Normal 4.3-5.6 [facility] Comment on above: Order Comment: Juaquin werner Type: BLOOD SPECIMEN Ordering Facility: [facility] Address: [address] [place] [address] Result Comment: Amer ican Diabetes Association guidelines indicate that patients with HgbA1c in the range 5.7-6.4% are at increased risk for development of diabetes, and intervention by lifestyle modification may be beneficial. HgbA1c greater or equal to 6.5% is considered diagnostic of diabetes. Performed By: #### 5 5454-3 #### [facility] CLIA [id number] [address] [place] [address] [place] Insulin SerPl-aCncon 024 Insulin Qn 13.0 u[IU]/mL Normal 3.0-25.0 [facility] Comment on above: Order Comment: Juaquin werner Type: BLOOD SPECIMEN Ordering Facility: [facility] Address: [address] [place] [address] Performed By: #### 2 0448-7 #### [facility] CLIA [id number] [address] [place] [address] [place] Office Visiton 05-16-2023 Follow-up visit [id number] Diogenes Conti 1995 F Date Provider Department Center 05/16/2023 JOAQUINA BAER [facility] Family History Problem Relation Age of Onset Thyroid disease Mother Alcaraz syndrome Father Asthma Sister Breast cancer Maternal Grandmother Cancer Maternal Grandfather Cancer Paternal Grandfather Family Status - Relation Status Age at Mother Alive Father Alive Sister Sister Maternal Grandmother Maternal Grandfather Paternal Grandmother Alive Paternal Grandfather Level of Service:47958 OK OFFICE/OUTPATIENT ESTABLISHED MOD MDM 30 MIN Reason for Visit and Comments: Medication Check [[id number]] Weight Gain [180] [facility] PATINSon 05-16-2023 PATINS Start wellbutrin and decrease lexapro to 10 mg daily x 7 days, then stop the lexapro. Check Headspace vangie for meditation [facility] Progress Noteon 05-16-2023 Progress Note Will have her follow up with her agriculture laboratory technician, suspect gain posssilby from pcos. Continue exercise, healthy eating and portion control. Will stop lexapro (possible weight gain) and switch to wellbutrin. [facility] Progress Note Denies si/hi. Anxiet y and depression symptoms better but still is having trouble focusing. Will taper discontinue lexapro and start wellbutrin. Follow up in about 1 month [facility] Progress Note Patient was identifi ed by name and Date of . [facility] Progress Note 05/16/2023 David Conti (: 1995) is a 27 y.o. female , Established patient, here for evaluation of the following chief complaint(s): Medication Check and Weight Gain ASSESSMENT/PLAN: 1. Anxiety and depression Assessment & Plan: Denies si/hi. Anxiety and depression symptoms better but still is having trouble focusing. Will taper discontinue lexapro and start wellbutrin. Follow up in about 1 month Orders: - buPROPion XL (Wellbutrin XL) 150 MG 24 hr tablet; Take 1 tablet (150 mg) by mouth every morning. Do not crush, chew, or split., Starting 05/16/2023, Until Tue07/15/2023, Normal 2. Weight gain Assessment & Plan: Will have her follow up with her agriculture laboratory technician, suspect gain posssilby from pcos. Continue exercise, healthy eating and portion control. Will stop lexapro (possible weight gain) and switch to wellbutrin. Follow up in about 1 month (around 06/16/2023). SUBJECTIVE/OBJECTIVE: HPI - David Conti (: 1995) is a 27 y.o. female , Established patient, here for the evaluation of the following chief complaint(s): Medication Check and Weight Gain Stopped nicotine and stopped etoh since we last met. . Has gained some weight. She thinks it may be from going off of her control medication, Is working out with online [employer] classes daily, watching what she is eating. Is doing well as far as eating and exercising. She also is doing yoga. Stopped control. Has not had period since dec and February and has been testing. Is trying to get . Will be following up with her agriculture laboratory technician. Reports anxiety is better, but is not able to focus well still. Denies si/hi. Her and her are getting ready to go to [place] for car racing for 11 days. Her races cars. States she is looking forward to going. Prior to Admission medications Medication Sig Start Date End Date Taking? Authorizing Provider escitalopram (Lexapro) 20 MG tablet Take 1 tablet (20 mg) by mouth daily. 04/08/23 07/07/23 Yes Joaquina Schmitz APRN - SANDIP MV-Min-Fe Fum-FA-DHA ( 1 PO) Take by mouth. Yes Historical Provider, Review of Systems Constitutional: Negative. HENT: Negative. Respiratory: Negative. Cardiovascular: Negative. Gastrointestinal: Negative. Genitourinary: Negative. Musculoskeletal: Negative. Neurological: Negative. Psychiatric/Behavioral : Positive for decreased concentration. Negative for self-injury, sleep disturbance and suicidal ideas. The patient is nervous/anxious. Vitals: 05/16/23 1346 BP: 133/89 Pulse: 98 Resp: 18 Temp: 36.7 ?C (98.1 ?F) TempSrc: Infrared SpO2: 97% Weight: 164 lb (74.4 kg) Physical Exam Constitutional: General: She is not in acute distress. Appearance: Normal appearance. She is not ill-appearing. HENT: Head: Normocephalic and atraumatic. Right Ear: Tympanic membrane normal. Left Ear: Tympanic membrane normal. Nose: No congestion or rhinorrhea. Mouth/Throat: Mouth: Mucous membranes are moist. Pharynx: Oropharynx is clear. No posterior oropharyngeal erythema. Eyes: Conjunctiva/sclera: Conjunctivae normal. Cardiovascular: Rate and Rhythm: Normal rate and regular rhythm. Pulmonary: Effort: Pulmonary effort is normal. Breath sounds: Normal breath sounds. Lymphadenopathy: Cervical: No cervical adenopathy. Skin: General: Skin is warm and dry. Neurological: Mental Status: She is alert and oriented to person, place, and time. Psychiatric: Mood and Affect: Mood normal. Behavior: Behavior normal. Thought Content: Thought content normal. Judgment: Judgment normal. An electronic signature was used to authenticate this note. Joaquina Ainsley, LATIN DANCE INSTRUCTOR - CATIA DESIGNER 05/16/2023 4:24 PM [facility] Office Visiton 03-23-2023 Follow-up visit [id number] Diogenes Conti 1995 F Date Provider Department Center 03/23/2023 [id number] SCHMITZ [facility] [place] [facility] Family History Problem Relation Age of Onset Thyroid disease Mother Alcaraz syndrome Father Asthma Sister Breast cancer Maternal Grandmother Cancer Maternal Grandfather Cancer Paternal Grandfather Family Status - Relation Status Age at Mother Alive Father Alive Sister Sister Maternal Grandmother Maternal Grandfather Paternal Grandmother Alive Paternal Grandfather Level of Service:37232 OK PERIODIC PREVENTIVE MED EST PATIENT 18-39 YRS Reason for Visit and Comments: Follow-up [425956] Health Maintenance [872] - Lipid-pended HIV/Hep C-declined Covid-declined PHQ-completed Pap-[facility] (will scan in) Tdap-declined Influenza-declined ? [facility] PATINSon 03-23-2023 PATINS Melatonin 1- 5 mg nightly to help with sleep. Send update via [employer] to provider in 1 month on how you are doing on the lexapro 10 mg daily. [facility] Progress Noteon 03-23-2023 Progress Note Denies any suicidal or homicidal ideation. Reports improved symptoms. We will continue on Lexapro 10 mg daily she is to provide an update through [employer] in approximately 4 weeks. Consider up titration if needed at that point. [facility] Progress Note Patient was identifi ed by name and Date of . Health Main: Lipid-pended HIV/Hep C-declined Covid-declined PHQ-completed Pap-[facility] (will scan in) Tdap-declined Influenza-declined [facility] Progress Note 03/23/2023 David Conti (: 1995) is a 27 y.o. female , Established patient, here for evaluation of the following chief complaint(s): Follow-up and Health Maintenance (Lipid-pended/HIV/Hep C-declined/Covid-decli osmar/PHQ-completed/Pap- [facility] (will scan in)/Tdap-declined/Infl uenza-declined/ ) ASSESSMENT/PLAN: 1. Annual physical exam - Comprehensive metabolic panel - CBC - Lipid panel 2. Screening for deficiency anemia - CBC 3. Screening for cholesterol level - Lipid panel 4. Anxiety and depression Assessment & Plan: Denies any suicidal or homicidal ideation. Reports improved symptoms. We will continue on Lexapro 10 mg daily she [facility] 4 weeks. Consider up titration if needed at that point. Follow up in about 3 months (around 06/23/2023). SUBJECTIVE/OBJECTIVE: HPI - David Conti (: 1995) is a 27 y.o. female , Established patient, here for the evaluation of the following chief complaint(s): Follow-up and Health Maintenance (Lipid-pended/HIV/Hep C-declined/Covid-decli osmar/PHQ-completed/Pap- [facility] (will scan in)/Tdap-declined/Infl uenza-declined/ ) Recently newly established patient to us about 2 weeks ago who had presented for an acute complaint of anxiety and depression. She was started on Lexapro 10 mg at that time and recommended to get set up with a counselor. No other acute complaints today. Anxiety/dep- feels like medication is helping some. Is able to think clearer. Is processing thoughts better. States that she has not broke down and cried like she was before. Denies any suicidal or homicidal ideation. She has yet to set up with a counselor. Has [employer] which she follows for women's health. Prior to Admission medications Medication Sig Start Date End Date Taking? Authorizing Provider escitalopram (Lexapro) 10 MG tablet Take 1 tablet (10 mg) by mouth daily. 03/08/23 06/06/23 Yes Joaquina Schmitz APRN - SANDIP MV-Min-Fe Fum-FA-DHA ( 1 PO) Take by mouth. Yes Historical Provider, Review of Systems Constitutional: Negative. HENT: Negative. Respiratory: Negative. Cardiovascular: Negative. Gastrointestinal: Negative. Genitourinary: Negative. Musculoskeletal: Negative. Neurological: Negative. Psychiatric/Behavioral : Positive for decreased concentration and sleep disturbance (still not sleeping well.). Negative for self-injury and suicidal ideas. The patient is nervous/anxious. Vitals: 03/23/23 0929 BP: 116/77 Pulse: 98 Resp: 18 Temp: 36.4 ?C (97.6 ?F) TempSrc: Infrared SpO2: 99% Weight: 151 lb (68.5 kg) Physical Exam Constitutional: General: She is not in acute distress. Appearance: Normal appearance. She is not ill-appearing. HENT: Head: Normocephalic and atraumatic. Right Ear: Tympanic membrane normal. Left Ear: Tympanic membrane normal. Mouth/Throat: Mouth: Mucous membranes are moist. Pharynx: Oropharynx is clear. No posterior oropharyngeal erythema. Eyes: Conjunctiva/sclera: Conjunctivae normal. Cardiovascular: Rate and Rhythm: Normal rate and regular rhythm. Pulses: Normal pulses. Heart sounds: Normal heart sounds. Musculoskeletal: Right lower leg: No edema. Left lower leg: No edema. Skin: General: Skin is warm and dry. Neurological: Mental Status: She is alert and oriented to person, place, and time. Psychiatric: Mood and Affect: Mood normal. Behavior: Behavior normal. Thought Content: Thought content normal. Judgment: Judgment normal. An electronic signature was used to authenticate this note. Joaquina Schmitz APRN - SANDIP 03/23/2023 1:22 PM [facility] Office Visiton 03-08-2023 Follow-up visit [id number] JeannetteDiogenes 1995 F Date Provider Department Center 03/08/2023 [id number] SCHMITZ [facility] Family History Problem Relation Age of Onset Thyroid disease Mother Alcaraz syndrome Father Asthma Sister Breast cancer Maternal Grandmother Cancer Maternal Grandfather Cancer Paternal Grandfather Family Status - Relation Status Age at Mother Alive Father Alive Sister Sister Maternal Grandmother Maternal Grandfather Paternal Grandmother Alive Paternal Grandfather Level of Service:45974 OK OFFICE/OUTPATIENT NEW MODERATE MDM 45-59 MINUTES Reason for Visit and Comments: New Patient [542] [facility] PATINSon 03-08-2023 PATINS Start with 1/2 tab daily x 1 week, then increase to 1 whole tablet If you or someone you know needs support now, call or text 195 or chat [email or web address] --- To find providers in your area for mental health services https://findtreatment. gov/ To find additional support and information regarding mental health services and substance abuse https://www.samhsa.gov / Mental Health and Psychiatry Resources Counseling Family [address] [phone] [phone] [facility] Office [address], [place] [phone] [facility] (LGBTQIA+ inclusive) [phone] [place] Office [address] [facility] [place] [address] [place] Office [address] [place] [email or web address] [facility] [place], [place] [phone] Psychiatry [facility] [phone] [facility] TRACIE Bradford (commercial insurance only) Behavioral Health Services [facility] [phone] Counseling and Psychiatry [facility] [address] [place] [address] [address], [place] [phone] [facility]: [phone] [facility]: [phone] [facility]: [phone] [facility], [address] [place] [address] Kaley [place] (OPEN 15/11): [phone] [facility]al [facility], Psychiatry and [facility] [address], [address] [facility] Multiple locations in [place] Go to [facility] Progress Noteon 03-08-2023 Progress Note Denies any active suicidal or homicidal ideation. Symptoms are poorly controlled. Will start Lexapro 10 mg daily, recommend that she start cognitive behavioral therapy-resources provided. Close follow-up in 2 weeks sooner for any worsening symptoms [facility] Progress Note Follow-up with OB/GY N as directed [facility] Progress Note Symptoms are controlled. [facility] Progress Note Controlled. Has not needed her rescue inhaler over a year, continue albuterol as needed as needed [facility] Progress Note 03/08/2023 David Conti (: 1995) is a 27 y.o. female , New patient, here for evaluation of the following chief complaint(s): New Patient ASSESSMENT/PLAN: 1. Anxiety and depression Assessment & Plan: Denies any active suicidal or homicidal ideation. Symptoms are poorly controlled. Will start Lexapro 10 mg daily, recommend that she start cognitive behavioral therapy-resources provided. Close follow-up in 2 weeks sooner for any worsening symptoms Orders: - escitalopram (Lexapro) 10 MG tablet; Take 1 tablet (10 mg) by mouth daily., Starting Tue03/08/2023, Until Tue06/06/2023, Normal 2. Mild intermittent asthma, unspecified whether complicated Assessment & Plan: Controlled. Has not needed her rescue inhaler over a year, continue albuterol as needed as needed 3. Vocal cord dysfunction Assessment & Plan: Symptoms are controlled. 4. PCOS (polycystic ovarian syndrome) Assessment & Plan: Follow-up with [employer] as directed Follow up in about 2 weeks (around 03/22/2023) for Recheck. SUBJECTIVE/OBJECTIVE: HPI - David Conti presents as new patient, previous primary care provider Rody Sigala III, last seen 10 years by previous provider. Specialists/other providers? 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 Chief complaint(s): New Patient Patient presents today to establish and for an acute complaint of anxiety and depression symptoms. Reports these have been worsening over the past few months and is not sure if it is related to the amount of stressors that she is currently experiencing. States she has a history of some trauma in her childhood. Her father is currently estranged, has a good relationship now with her mother. Is working full-time at [employer] and then part-time at [employer]. 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 Was 2 years ago to her and is now his stepmom to 3 young children, they have them usually every other weekend. She reports this is stressful for her and she tries the best she can but struggles with figuring out how to be a good mom. There are some stressors with their biological mother whom may or may not have bipolar disorder or some type of mood disorder as she is not always consistent with behaviors/attitude toward her. States that she has struggled with anxiety and some depression symptoms since childhood but has never been on any medications and only briefly saw a counselor 1 time about 6 years ago. Reports daily symptoms of feeling overwhelmed, difficulty concentrating, and difficulty in daily activities. Reports fleeting thoughts of suicide when feeling overwhelmed with no plan. States she would never act on any of those thoughts due to her stepchildren and has been. Vocal cord dysfunction-reports diagnosed as a child and has gone through speech therapy for this which has helped. States she has not had any flareups. Also thinks that it helped after she quit vaping. Asthma,-reports symptoms controlled. Has not needed her rescue inhaler for a very long time, no hospitalizations PCOS-was briefly on control through her [employer] however decided not to take it any longer . Is currently taking vitamins states she would be okay if she got Past Medical History: Diagnosis Date Asthma 2010 Past Surgical History: Procedure Laterality Date ANKLE SURGERY Right x 3. Dr. Herbert Chatman- [facility] / previously [facility]- last sx 2019 WISDOM TOOTH EXTRACTION Bilateral 2015 Family History Problem Relation Name Age of Onset Thyroid disease Mother Alcaraz syndrome Father Asthma Sister Amanda Frazier Breast cancer Maternal Grandmother Cancer Maternal Grandfather Cancer Paternal Grandfather Social History Socioeconomic History Marital status: Spouse name: Not on file Number of children: Not on file Years of education: Not on file Highest education level: Not on file Occupational History Not on file Tobacco Use Smoking status: Never Smokeless tobacco: Current Types: Chew Tobacco comments: Nicotine pouch, Vaping Use Vaping Use: Former Substance and Sexual Activity Alcohol use: Yes Alcohol/week: 5.0 standard drinks of alcohol Types: 5 Shots of liquor per week Comment: occ. Drug use: Never Sexual activity: Yes Partners: Male control/protection: None Other Topics Concern Not on file Social History Narrative Lives with - kayla, 2 dogs- donna and jadon, dalmation and rott- both 1 yo. 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 Rents home in [place] and then lives in motor home when he is racing. Social Determinants of Health Financial Resource Strain: Not on file Food Insecurity: Not on file Transp (more content not included)... [facility] 11-29-2022 OV Office Visit (OBGYWM ) DAVID CONTI ([id number]) 1995 F Date Time Provider Department 11/29/22 2:30 PM DIVYA NATION OBGYWEstelita During your visit today, we recorded the following information about you: Blood pressure Weight Height Last Period 118/68 67.6 kg 1.626 m 11/15/22 Divya Nation MD 11/29/2022 3:09 PM Signed Linux Network Administrator offered: Patient declines. David is a 27 year old who presents for an annual gynecologic exam without complaints. Does have irregular bleeding with pills. 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 Thinking about kids. Menses: cycles every 28 days and 5-8 days but does have a lot of irregular bleeding for 3-4 days per month- not as heavy. Does not miss pills or take them late. Contraception: combined hormonal contraceptives HPV vaccine: Yes Last Pap: 10/28/2021 normal HPV: N/A History of abnormal pap: No Last mammogram: never Sexually active: Yes History of STDS: None Patient concerns for STD exposure: No. Pain with intercourse: No Postcoital bleeding: No Exercise:active walking Diet: balanced OB History T0 L0 SAB0 IAB0 Ectopic0 Multiple0 Live Births0 Comment: 3 stepchildren [employer] History LMP: 11/30/2021, Having periods Age at Menarche: Age at First : Age at Menopause: Wellness [employer] Manager History Comments: Sexual Activity: Yes; Male; sexually active with Contraception: Pill PAST MEDICAL HISTORY Diagnosis Date Exertional asthma 07/28/2011 Medial meniscus tear 07/28/2011 Unspecified otitis media Recurrent otitis Vocal cord dysfunction 09/07/2011 PAST SURGICAL HISTORY Procedure Laterality Date ANKLE ARTHROSCOPY Right 10/28/15 Dr. Fu FAMILY HISTORY Problem Relation Age of Onset other (Other [Other]) Paternal Grandfather leukemia Cancer Maternal Grandmother breast Asthma Sister SOCIAL HISTORY Social History Tobacco Use Smoking status: Never Smokeless tobacco: Never Vaping Use Vaping Use: Never used Substance Use Topics Alcohol use: Yes Drug use: No REVIEW OF SYSTEMS Abdomen: No abdominal pain, nausea, vomiting, diarrhea, or constipation. No bloating, early satiety, indigestion, or increased flatulence. Bladder: No dysuria, gross hematuria, urinary frequency, urinary urgency, or incontinence. Breast: No breast lumps, nipple d/c, overlying skin changes, redness or skin retraction. Allergies and current medication updated:Yes EXAM: BP 118/68 Ht 5' 4 (1.63m) Wt 149 lb (67.6kg) LMP 11/15/2022 BMI 25.56 kg/(m2). GENERAL: pleasant, female in no apparent distress HEENT: Normocephalic, atraumatic, mucus membranes moist, and no lesions NECK: Supple, full range of motion, no adenopathy, and thyroid normal DERMATOLOGY: Normal, without lesions, non-icteric, and non-hirsute BREAST: soft, non-tender, symmetric, no dominant mass, normal nipple-areolar complex, no lymphadenopathy, and no nipple discharge ABDOMEN: soft, non-tender, and no masses PELVIC: external genitalia normal, normal Bartholin's glands, urethra, [place]'s glands, no vulvar lesions, no cervical lesions, good vaginal support, physiologic discharge present, normal appearing perineal body and perianal region BIMANUAL: uterus normal size, shape and consistency, no adnexal masses, and non-tender RECTOVAGINAL: deferred. NEURO: alert and oriented x3,exam grossly non-focal EXTREMITIES: normal ASSESSMENT/PLAN: 1) Health maintenance: Pap/HPV up to date. Mammogram starting age 40. Nutrition, exercise and routine health maintenance exams reviewed. Calcium/Vitamin D supplementation information provided. 2) Contraception: combined hormonal contraceptives. Contraceptive options reviewed and information provided. Changed to antony 3) STD screening: Declined STD check. 4) Follow up one year or sooner as needed Divya Melendez MD Allergies As of Date: 11/29/2022 Noted Allergy Reaction GRASS POLLEN 08/23/2012 16 - Unknown SEASONAL ALLERGIES 08/23/2012 16 - Unknown Comments: Weeds TREES 08/23/2012 16 - Unknown Date Reviewed: 11/29/2022 Reviewed by: Shannon Hu Ma - Fully Assessed Reason for Visit: Yearly Exam [187] Primary Visit Diagnosis:Encounter for gynecological examination (general) (routine) without abnormal findings [Z01.419] Other Visit Diagnosis:PCOS (polycystic ovarian syndrome) [E28.2] Order(s):Drospirenone- Ethinyl Estradiol (ANTONY, 28,) 3-0.03 mg per tabletTake 1 tablet by mouth once daily. Take one active pill continuously x 3 months- discard placebo pillsDisp: 112 tabletRfl: 3 Prescriptions as of 11/29/2022 - Drospirenone-Ethinyl Estradiol (ANTONY, 28,) 3-0.03 mg per tablet Take 1 tablet by mouth once daily. Take one active pill continuously x 3 months- discard placebo pills - albuterol HFA (PROVENTIL HFA, VENTOLIN HFA) 90 mcg/actuatio (more content not included)... Normal [facility] CBC W Auto Differential pane l (Bld)on 10-20-2021 Abs Immature Gran <0.03 <0.10 k/uL [facility] Basophils (Bld) [#/Vol] 0.03 10*3/uL <0.11 k/uL [facility] Basophils/100 WBC (Bld) 0.4 % [facility] Differential cell count method Nom (Bld) Auto [facility] Eosinophils (Bld) [#/Vol] 0.18 10*3/uL <0.46 k/uL [facility] Eosinophils/100 WBC (Bld) 2.5 % [facility] Erythrocyte distribution width (RBC) [Ratio] 13.0 % 11.5 - 15.0 % [facility] Hematocrit (Bld) [Volume fraction] 37.3 % 36.0 - 46.0 % [facility] Hemoglobin (Bld) [Mass/Vol] 12.3 g/dL 11.5 - 15.5 g/dL [facility] Immature Gran % 0.1 % [facility] Lymphocytes (Bld) [#/Vol] 2.81 10*3/uL 1.00 - 4.00 k/uL [facility] Lymphocytes/100 WBC (Bld) 39.7 % [facility] MCH (RBC) [Entitic mass] 28.6 pg 26.0 - 34.0 pg [facility] MCHC (RBC) [Mass/Vol] 33.0 g/dL 30.5 - 36.0 g/dL [facility] MCV (RBC) [Entitic vol] 86.7 fL 80.0 - 100.0 fL [facility] Monocytes (Bld) [#/Vol] 0.46 10*3/uL <0.87 k/uL [facility] Monocytes/100 WBC (Bld) 6.5 % [facility] Neutrophils (Bld) [#/Vol] 3.58 10*3/uL 1.45 - 7.50 k/uL [facility] Neutrophils/100 WBC (Bld) 50.8 % [facility] Nucleated RBC (Bld) [#/Vol] 10*3/uL <0.01 k/uL [facility] Nucleated RBC/100 WBC (Bld) [Ratio] 0.0 /100 WBC [facility] Platelet mean volume (Bld) [Entitic vol] 11.4 fL 9.0 - 12.7 fL [facility] Platelets (Bld) [#/Vol] 276 10*3/uL 150 - 400 k/uL [facility] RBC (Bld) [#/Vol] 4.30 10*6/uL 3.90 - 5.2 0 m/uL [facility] WBC (Bld) [#/Vol] 7.07 10*3/uL 3.70 - 11. 00 k/uL [facility] HCG QUAL UR B/Oon 10-20-2021 status Negative neg - pos [facility] Quality Check Yes [facility] Vital Signs Date Time Vital Sign Value Performing Clinician Nara beverly 09-15-2023 13:07-0400 Body mass index (BMI) [Ratio] 27.74 kg/m2 Joaquina Bridenthal LATIN DANCE INSTRUCTOR - CATIA DESIGNER Work Phone: [facility] [employer] 09-15-2023 13:07-0400 Body temperature 98.4 [degF] Joaquina Bridenthal LATIN DANCE INSTRUCTOR - CATIA DESIGNER Work Phone: [facility] [employer] 09-15-2023 13:07-0400 Body weight 73.3 kg Joaquina Bridenthal LATIN DANCE INSTRUCTOR - CATIA DESIGNER Work Phone: [facility] [employer] 09-15-2023 13:07-0400 Diastolic blood pressure 85 mm[Hg] Joaquina Bridenthal LATIN DANCE INSTRUCTOR - CATIA DESIGNER Work Phone: [facility] [employer] 09-15-2023 13:07-0400 Heart rate 102 /min Joaquina Bridenthal LATIN DANCE INSTRUCTOR - CATIA DESIGNER Work Phone: [facility] [employer] 09-15-2023 13:07-0400 Respiratory rate 18 /min Joaquina Bridenthal LATIN DANCE INSTRUCTOR - CATIA DESIGNER Work Phone: [facility] [employer] 09-15-2023 13:07-0400 SaO2% (BldA) [Mass fraction] 97 % Joaquina Bridenthal LATIN DANCE INSTRUCTOR - CATIA DESIGNER Work Phone: [facility] [employer] 09-15-2023 13:07-0400 Systolic blood pressure 129 mm[Hg] Joaquina Bridenthal LATIN DANCE INSTRUCTOR - CATIA DESIGNER Work Phone: [facility] [employer] 07-14-2023 07:36-0400 Body weight 75.75 kg Nancy Ordoñez LATIN DANCE INSTRUCTOR.CATIA DESIGNER Work Phone: [facility] 07-14-2023 07:36-0400 Diastolic blood pressure 82 mm[Hg] Nancy Ordoñez APRN.CATIA DESIGNER Work Phone: [facility] 07-14-2023 07:36-0400 Heart rate 80 /min Nancy Ordoñez APRN.CATIA DESIGNER Work Phone: [facility] 07-14-2023 07:36-0400 SaO2% (BldA) [Mass fraction] 98 % Nancy Ordoñez APRN.CATIA DESIGNER Work Phone: [facility] 07-14-2023 07:36-0400 Systolic blood pressure 126 mm[Hg] Nancy Ordoñez APRN.CATIA DESIGNER Work Phone: [facility] 06-16-2023 06:59-0500 Body weight 76.66 kg Nancy Ordoñez APRN.CATIA DESIGNER Work Phone: [facility] 06-16-2023 06:59-0500 Diastolic blood pressure 84 mm[Hg] Nancy Ordoñez APRN.CATIA DESIGNER Work Phone: [facility] 06-16-2023 06:59-0500 Systolic blood pressure 116 mm[Hg] Nancy Ordoñez APRN.CATIA DESIGNER Work Phone: [facility] 06-15-2023 07:35-0500 Body mass index (BMI) [Ratio] 29.21 kg/m2 Joaquina Bridenthal LATIN DANCE INSTRUCTOR - CATIA DESIGNER Work Phone: [facility] [employer] 06-15-2023 07:35-0500 Body temperature 98.6 [degF] Joaquina Bridenthal LATIN DANCE INSTRUCTOR - CATIA DESIGNER Work Phone: [facility] [employer] 06-15-2023 07:35-0500 Body weight 77.2 kg Joaquina Bridenthal LATIN DANCE INSTRUCTOR - CATIA DESIGNER Work Phone: [facility] [employer] 06-15-2023 07:35-0500 Diastolic blood pressure 69 mm[Hg] Joaquina Bridenthal LATIN DANCE INSTRUCTOR - CATIA DESIGNER Work Phone: [facility] [employer] 06-15-2023 07:35-0500 Heart rate 94 /min Joaquina Bridenthal LATIN DANCE INSTRUCTOR - CATIA DESIGNER Work Phone: [facility] [employer] 06-15-2023 07:35-0500 Respiratory rate 18 /min Joaquina Bridenthal LATIN DANCE INSTRUCTOR - CATIA DESIGNER Work Phone: [employer] 06-15-2023 07:35-0500 SaO2% (BldA) [Mass fraction] 98 % Joaquina Jonathanenthal LATIN DANCE INSTRUCTOR - CATIA DESIGNER Work Phone: [employer] 06-15-2023 07:35-0500 Systolic blood pressure 112 mm[Hg] Joaquina Jonathanenthal LATIN DANCE INSTRUCTOR - CATIA DESIGNER Work Phone: [employer] 05-16-2023 13:46-0500 Body mass index (BMI) [Ratio] 28.15 kg/m2 Joaquina Bridenthal LATIN DANCE INSTRUCTOR - CATIA DESIGNER Work Phone: [employer] 05-16-2023 13:46-0500 Body temperature 98.1 [degF] Joaquina Jonathanenthal LATIN DANCE INSTRUCTOR - CATIA DESIGNER Work Phone: [employer] 05-16-2023 13:46-0500 Body weight 74.39 kg Joaquina Jonathanenthal LATIN DANCE INSTRUCTOR - CATIA DESIGNER Work Phone: [employer] 05-16-2023 13:46-0500 Diastolic blood pressure 89 mm[Hg] Joaquina Bridenthal LATIN DANCE INSTRUCTOR - CATIA DESIGNER Work Phone: [employer] 05-16-2023 13:46-0500 Heart rate 98 /min Joaquina Jonathanenthal LATIN DANCE INSTRUCTOR - CATIA DESIGNER Work Phone: [employer] 05-16-2023 13:46-0500 Respiratory rate 18 /min Joaquina Bridenthal LATIN DANCE INSTRUCTOR - CATIA DESIGNER Work Phone: [employer] 05-16-2023 13:46-0500 SaO2% (BldA) [Mass fraction] 97 % Joaquina Bridenthal LATIN DANCE INSTRUCTOR - CATIA DESIGNER Work Phone: [employer] 05-16-2023 13:46-0500 Systolic blood pressure 133 mm[Hg] Joaquina Jonathanenthal LATIN DANCE INSTRUCTOR - CATIA DESIGNER Work Phone: [facility] [employer] 03-23-2023 09:29-0500 Body mass index (BMI) [Ratio] 25.92 kg/m2 Joaquina Bridenthal LATIN DANCE INSTRUCTOR - CATIA DESIGNER Work Phone: [facility] [employer] 03-23-2023 09:29-0500 Body temperature 97.59 [degF] Joaquina Bridenthal LATIN DANCE INSTRUCTOR - CATIA DESIGNER Work Phone: [facility] [employer] 03-23-2023 09:29-0500 Body weight 68.49 kg Joaquina Bridenthal LATIN DANCE INSTRUCTOR - CATIA DESIGNER Work Phone: [facility] [employer] 03-23-2023 09:29-0500 Diastolic blood pressure 77 mm[Hg] Joaquina Bridenthal LATIN DANCE INSTRUCTOR - CATIA DESIGNER Work Phone: [facility] My1login 03-23-2023 09:29-0500 Heart rate 98 /min Joaquina Bridenthal LATIN DANCE INSTRUCTOR - CATIA DESIGNER Work Phone: [facility] [email or web address] 03-23-2023 09:29-0500 Respiratory rate 18 /min Joaquina Bridenthal LATIN DANCE INSTRUCTOR - CATIA DESIGNER Work Phone: [facility] [email or web address] 03-23-2023 09:29-0500 SaO2% (BldA) [Mass fraction] 99 % Joaquina Bridenthal LATIN DANCE INSTRUCTOR - CATIA DESIGNER Work Phone: [facility] [email or web address] 03-23-2023 09:29-0500 Systolic blood pressure 116 mm[Hg] Joqauina Bridenthal LATIN DANCE INSTRUCTOR - CATIA DESIGNER Work Phone: [facility] 11-29-2022 14:12-0400 Body height 162.6 cm Divya Graham MD Work Phone: [facility] 11-29-2022 14:12-0400 Body weight 67.59 kg Divya Graham MD Work Phone: [facility] 11-29-2022 14:12-0400 Diastolic blood pressure 68 mm[Hg] Divya Graham MD Work Phone: [facility] 11-29-2022 14:12-0400 Systolic blood pressure 118 mm[Hg] Divya Graham MD Work Phone: [facility] 10-20-2021 07:240400 Body height 163 cm Niharika Lee MD Work Phone: [facility] 10-20-2021 07:24-0400 Body weight 67.59 kg Niharika Lee MD Work Phone: [facility] 10-20-2021 07:24-0400 Diastolic blood pressure 64 mm[Hg] Niharika Lee MD Work Phone: [facility] 10-20-2021 07:24-0400 Systolic blood pressure 104 mm[Hg] Niharika Lee MD Work Phone: [facility] Encounters Encounter Date Encounter Type Care Provider Facility Start: 09-15-2023 End: 09-15-2023 Office outpatient visit 15 minutes Joaquina Bridtopheral LATIN DANCE INSTRUCTOR - CATIA DESIGNER Work Phone: [facility] Comment on above: Anxiety and depressi on (Primary Dx); Skin sensation disturbance Start: 09-15-2023 End: 09-15-2023 ambulatory JOAQUINA BRIDENTHAL [facility] Start: 07-14-2023 End: 07-15-2023 ambulatory JOAQUINA BRIDENTHAL Facility:[facility] Start: 07-14-2023 End: 07-14-2023 Patient encounter procedure Nancy Ordoñez APRN.CATIA DESIGNER Work Phone: OB/Gynecology Comment on above: PCOS (polycystic ova kenneth syndrome) (Primary Dx); Irregular menses; Anxiety and depression; History of bulimia; History of anorexia nervosa; Provided repeat prescription for oral contraceptive; Overweight with body mass index (BMI) of 29 to 29.9 in adult Start: 06-16-2023 End: 06-16-2023 ambulatory JOAQUINA BRIDENTHAL Facility:[facility] Start: 06-16-2023 End: 06-16-2023 Patient encounter procedure Nancy Ordoñez APRN.CATIA DESIGNER Work Phone: OB/Gynecology Comment on above: PCOS (polycystic ova kenneth syndrome) (Primary Dx); Elevated LDL cholesterol level; IFG (impaired fasting glucose); Irregular menses; Anxiety and depression; History of bulimia; History of anorexia nervosa; Overweight with body mass index (BMI) of 29 to 29.9 in adult Start: 06-15-2023 End: 06-15-2023 Office outpatient visit 15 minutes Joaquina Bridenthal LATIN DANCE INSTRUCTOR - CATIA DESIGNER Work Phone: [facility] Comment on above: Anxiety and depressi on (Primary Dx); PCOS (polycystic ovarian syndrome) Start: 06-15-2023 End: 06-15-2023 Office outpatient visit 25 minutes Joaquina Bridenthal LATIN DANCE INSTRUCTOR - CATIA DESIGNER Work Phone: [facility] Comment on above: Anxiety and depressi on (Primary Dx); PCOS (polycystic ovarian syndrome) Start: 06-15-2023 End: 06-15-2023 [facility] Start: 05-18-2023 End: 05-19-2023 ambulatory NANCY ORDOÑEZ Facility:[facility] Start: 05-16-2023 End: 05-16-2023 Office outpatient visit 15 minutes Joaquina Bridenthal LATIN DANCE INSTRUCTOR - CATIA DESIGNER Work Phone: [facility] Comment on above: Anxiety and depressi on (Primary Dx); Weight gain Start: 05-16-2023 End: 05-16-2023 Office outpatient visit 25 minutes Joaquina Bridenthal LATIN DANCE INSTRUCTOR - CATIA DESIGNER Work Phone: [facility] Comment on above: Anxiety and depressi on (Primary Dx); Weight gain Start: 05-16-2023 End: 05-16-[address] [facility] Start: 03-23-2023 End: 03-23-2023 Patient encounter procedure Joaquina Bridenthal LATIN DANCE INSTRUCTOR - CATIA DESIGNER Work Phone: [facility] [place] My1login Work Phone: Start: 03-23-2023 End: 03-23-2023 Periodic preventive med est patient 18-39 yrs Joaquina Bridenthal LATIN DANCE INSTRUCTOR - CATIA DESIGNER Work Phone: [facility] Comment on above: Annual physical exam (Primary Dx); Screening for deficiency anemia; Screening for cholesterol level; Anxiety and depression Start: 03-23-2023 End: 03-23-2023 ambulatory [facility] Start: 03-23-2023 End: 03-23-2023 Encounter for general adult medical examination without abnormal findings [facility] Start: 03-08-2023 End: 03-08-2023 ambulatory [facility] Start: 11-29-2022 End: 11-29-2022 ambulatory DIVYA GRAHAM Facility:[facility] Start: 11-29-2022 End: 11-29-2022 Patient encounter procedure Divya Graham MD Work Phone: OB/Gynecology Comment on above: Encounter for gyneco logical examination (general) (routine) without abnormal findings (Primary Dx); PCOS (polycystic ovarian syndrome) Start: 11-29-2022 End: 11-29-2022 Patient encounter status Divya Graham MD Work Phone: [facility] Start: 09-27-2022 Refill Rama palomo APRN.CNM Work Phone: OB/Gynecology Comment on above: Refill Request; Refi ll Request Start: 06-30-2022 ambulatory Niharika Israel Work Phone: OB/Gynecology Comment on above: Control Start: 05-20-2022 Telephone encounter Niharika allen MD Work Phone: OB/Gynecology Comment on above: Orders Start: 04-30-2022 ambulatory Niharika Israel Work Phone: OB/Gynecology Comment on above: Period Update Start: 04-12-2022 ambulatory Niharika Israel Work Phone: OB/Gynecology Comment on above: Period/ Giovanna t Update Start: 03-30-2022 Telephone encounter Niharika allen MD Work Phone: OB/Gynecology Comment on above: Follow Up Start: 03-30-2022 End: 03-30-2022 ambulatory Niharika Lee MD Work Phone: OB/Gynecology Comment on above: PCOS (polycystic ova kenneth syndrome) (Primary Dx); Missed menses Start: 03-30-2022 End: 03-30-2022 Telemedicine consultation with patient Niharika Lee MD Work Phone: [facility] [place] Start: 03-22-2022 Telephone encounter Niharika allen MD Work Phone: OB/Gynecology Comment on above: Patient Question Start: 03-19-2022 Telephone encounter Niharika allen MD Work Phone: OB/Gynecology Comment on above: Patient Question Start: 10-28-2021 ambulatory Divya Graham MD Work Phone: [facility] [place] Start: 10-28-2021 Manual pelvic examination Deid rei Graham MD Work Phone: OB/Gynecology Comment on above: Question regarding P ELVIC US WHI Start: 10-23-2021 End: 10-23-2021 ambulatory Divya Graham MD Work Phone: OB/Gynecology Comment on above: [facility] Ultrasound Start: 10-23-2021 End: 10-23-2021 Patient encounter procedure Divya Graham MD Work Phone: [facility] [place] Start: 10-20-2021 End: 10-20-2021 Patient encounter procedure Niharika Lee MD Work Phone: OB/Gynecology Comment on above: Encounter for gyneco logical examination without abnormal finding (Primary Dx); Encounter for screening for malignant neoplasm of cervix; Irregular intermenstrual bleeding Start: 10-20-2021 End: 10-20-2021 Patient encounter status Niharika Lee MD Work Phone: OB/Gynecology Procedures Date Procedure Procedure Detail Performing Clinician Start: 03-23-2023 Lipid 1996 panel - S yin or Plasma Joaquina Bridenthal LATIN DANCE INSTRUCTOR - CATIA DESIGNER Work Phone: Start: 10-20-2021 Urine test visual color cmprsn meths Niharika Lee MD Work Phone: Start: 10-20-2021 Microscopic observat ion [Identifier] in Cervix by Cyto stain Joaquina Ainsley LATIN DANCE INSTRUCTOR - CATIA DESIGNER Work Phone: Start: 06-15-2016 Adult depression scr eening assessment Niharika Lee MD Work Phone: Plan of Treatment Date Care Activity Detail Author Start: 2057 RSV Immunization age d 60 or older (1 - 1-dose 60+ series) RSV Immunization aged 60 or older (1 - 1-dose 60+ series) [facility] Start: 07-07-2047 Zoster Vaccines (1 o f 2) Zoster Vaccines (1 of 2) [facility] Start: 03-23-2028 Lipid panel Lipid Panel [facility] Start: 10-20-2024 PAP TESTING PAP TESTING [facility] Start: 10-20-2024 Screening for malign ant neoplasm of cervix [facility] Start: 03-23-2024 COVID-19 Vaccine (#1) COVID-19 Vacci ne (#1) [facility] Comment on above: Postponed from 01/06 (Patient Refused) Start: 03-23-2024 COVID-19 Vaccine ( season) COVID-19 Vaccine ( season) [facility] Comment on above: Postponed from 12/24 (Patient Refused) Start: 03-23-2024 DTaP/Tdap/Td Vaccine s (7 - Td or Tdap) DTaP/Tdap/Td Vaccines (7 - Td or Tdap) [facility] Comment on above: Postponed from 11/17 (Patient Refused) Start: 03-23-2024 Hepatitis C screening Hepatitis C Sc reening [facility] Comment on above: Postponed from 07/06 (Patient Refused) Start: 03-23-2024 HIV screening HIV Screening [facility] Comment on above: Postponed from 07/06 (Patient Refused) Start: 03-13-2024 End: 03-13-2024 Patient encounter procedure 03/13/2024 7:40 AM EST Office Visit [facility] [address] [place] [address] Bridenthal Joaquina, LATIN DANCE INSTRUCTOR - CATIA DESIGNER [address] [place] [address] [place] [address] [facility] Start: 12-25-2023 Influenza vaccination Influenz a Vaccine (Season Ended) [facility] Start: 10-23-2023 Influenza vaccination Influenza Vacc ine (#1) [facility] Comment on above: Postponed from 12/24 (Patient Refused) Start: 09-21-2023 Depression Monitoring Depression Mon itoring [facility] Start: 09-21-2023 Depresssion Monitoring Depresssion M onitoring [facility] Start: 09-14-2023 End: 09-14-2023 Patient encounter procedure 09/14/2023 1:00 PM EDT Office Visit [facility] [address] [place] [address] [place] [address] Bridenthal Joaquina, LATIN DANCE INSTRUCTOR - CATIA DESIGNER [address] [place] [address] [place] [address] [facility] Start: 06-20-2023 End: 06-20-2023 Patient encounter procedure 06/20/2023 2:00 PM EST Office Visit [facility] [address] [place] [address] [place] [address] Bridenthal, Joaquina, LATIN DANCE INSTRUCTOR - CATIA DESIGNER [address] [place] [address] [place] [address] [facility] Start: 06-15-2023 End: 06-15-2023 Patient encounter procedure 06/15/2023 7:40 AM EST Office Visit [facility] [address] [place] [address] [place] [address] Bridenthal, Joaquina, LATIN DANCE INSTRUCTOR - CATIA DESIGNER [address] [place] [address] [place] [address] [facility] Start: 04-25-2023 [facility] Start: 03-23-2023 End: 03-23-2024 CBC panel - Blood by Automated count CBC Lab Routine Screening for deficiency anemia Annual physical exam Expected: 03/23/2023 (Approximate), Expires: 03/23/2024 [facility] Comment on above: Expected: 03/23/2023 (Approximate), Expires: 03/23/2024 Start: 03-23-2023 End: 03-23-2024 Comprehensive metabolic 1998 panel - Serum or Plasma Comprehensive metabolic panel Lab Routine Annual physical exam Expected: 03/23/2023 (Approximate), Expires: 03/23/2024 [facility] Work Phone: Comment on above: Expected: 03/23/2023 (Approximate), Expires: 03/23/2024 Start: 03-23-2023 End: 03-23-2024 Lipid 1996 panel - Serum or Plasma Lipid panel Lab Routine Screening for cholesterol level Annual physical exam Expected: 03/23/2023 (Approximate), Expires: 03/23/2024 [facility] Comment on above: Expected: 03/23/2023 (Approximate), Expires: 03/23/2024 Start: 12-24-2022 Covid-19 Vaccine ( season) Covid-19 Vaccine ( season) [facility] Start: 12-24-2022 Influenza vaccination [facility] Start: 05-20-2022 End: 07-20-2022 Progesterone [Mass/volume] in Serum or Plasma PROGESTERONE BLD Lab Routine Anovulation Expected: 05/20/2022, Expires: 07/20/[address] [facility] Work Phone: Comment on above: Expected: 05/20/2022 , Expires: 07/20/2022 Start: 04-25-2022 [facility] Start: 04-10-2022 PAP TESTING PAP TESTING [facility] Start: 03-19-2022 End: 05-19-2022 Choriogonadotropin.beta subunit [Units/volume] in Serum or Plasma HCG QUANTITATIVE Lab Routine Missed menses Expected: 03/19/2022, Expires: 05/19/[address] [facility] Work Phone: Comment on above: Expected: 03/19/2022 , Expires: 05/19/2022 Start: 12-24-2021 Influenza vaccination [facility] Start: 10-20-2021 End: 12-20-2021 Thyrotropin [Units/volume] in Serum or Plasma [facility] Work Phone: Comment on above: Expected: 10/20/2021 , Expires: 12/20/2021 Start: 04-25-2021 DEPRESSION ASSESSMENT DEPRESSION ASS ESSMENT [facility] Start: 10-23-2020 COVID-19 VACCINE (2 - Booster for Randy series) COVID-19 VACCINE (2 - Booster for Randy series) [facility] Start: 11-18-2019 Urine microalbumin profile [facility] Start: 06-15-2017 Adult depression screening assessment DEPRESSION SCREENING [facility] Start: 07-07-2015 HEPATITIS C SCREENING HEPATITIS C [facility] Start: 07-07-2015 Hepatitis C screening Hepatitis C [facility] Start: 07-07-2015 HIV SCREENING HIV SCREENING [facility] Start: 07-07-2015 HIV screening HIV Screening [facility] Start: 07-07-2011 PEDS TO ADULT TRANSITION ANNUAL ASSESSMENT PEDS TO ADULT TRANSITION ANNUAL ASSESSMENT [facility] Start: 2009 PEDS TO ADULT TRANSITION INITIAL DISCUSSION PEDS TO ADULT TRANSITION INITIAL DISCUSSION [facility] Start: 07-07-2007 MENINGOCOCCAL B: Consider based on risk (1 of 2 - Risk Bexsero 2-dose series) MENINGOCOCCAL B: Consider based on risk (1 of 2 - Risk Bexsero 2-dose series) [facility] Start: 07-07-2003 Pneumococcal Vaccine : Pediatrics (0 to 5 Years) and At-Risk Patients (6 to 64 Years) (1 of 2 - PCV) Pneumococcal Vaccine: Pediatrics (0 to 5 Years) and At-Risk Patients (6 to 64 Years) (1 of 2 - PCV) [facility] Start: 1997 Lipid panel Lipid Panel [facility] PAP FLUID CERVICAL SCREENING PAP FLUID CERVICAL SCREENING Lab Routine Encounter for screening for malignant neoplasm of cervix 10/20/2021 8:07 AM EDT [facility] Work Phone: PELVIC US [facility] PELVIC US [facility] An c Imaging Routine Irregular intermenstrual bleeding Ordered: 10/20/[address] [facility] Work Phone: Comment on above: Ordered: 10/20/2021 [facility] Immunizations Immunization Date Immunization Notes Care Provider Fa rick 08-28-2020 Randy SARS-CoV-2 Vaccination Joaquina Brididris LATIN DANCE INSTRUCTOR - CATIA DESIGNER Work Phone: [facility] 06-15-2016 influenza, injectabl e, quadrivalent, contains preservative Niharika Lee MD Work Phone: [facility] 06-15-2016 influenza virus vacc ine, unspecified formulation Joaquina Schmitz LATIN DANCE INSTRUCTOR - CATIA DESIGNER Work Phone: [facility] 11-09-2013 meningococcal polysaccharide (groups A, C, Y and W-135) diphtheria toxoid conjugate vaccine (MCV4P) Niharika Lee MD Work Phone: [facility] 04-16-2013 human papilloma viru s vaccine, quadrivalent Niharika Lee MD Work Phone: [facility] 12-27-2012 human papilloma viru s vaccine, quadrivalent Niharika Lee MD Work Phone: [facility] 11-18-2012 human papilloma viru s vaccine, quadrivalent Niharika Lee MD Work Phone: [facility] 11-17-2009 Meningococcal, MCV4, unspecified conjugate formulation(groups A, C, Y and W-135) Niharika Lee MD Work Phone: [facility] 11-17-2009 tetanus toxoid, redu liliam diphtheria toxoid, and acellular pertussis vaccine, adsorbed Niharika Lee MD Work Phone: [facility] 12-10-2008 varicella virus vaccine Hemal Lee MD Work Phone: [facility] 2004 poliovirus vaccine, inactivated Niharika Lee MD Work Phone: [facility] Work Phone: 10-20-2003 measles, mumps and rubella virus vaccine Niharika Lee MD Work Phone: [facility] Work Phone: 09-01-2003 diphtheria, tetanus toxoids and acellular pertussis vaccine Niharika Lee MD Work Phone: [facility] Work Phone: 12-25-1998 DTaP-Haemophilus influenzae type b conjugate vaccine Niharika Lee MD Work Phone: [facility] 12-25-1998 poliovirus vaccine, inactivated Niharika Lee MD Work Phone: [facility] 10-02-1998 varicella virus vaccine Hemal Lee MD Work Phone: [facility] 07-10-1998 measles, mumps and rubella virus vaccine Niharika Lee MD Work Phone: [facility] 03-18-1998 hepatitis B vaccine, pediatric or pediatric/adolescent dosage Niharika Lee MD Work Phone: [facility] 1997 DTaP-Haemophilus influenzae type b conjugate vaccine Niharika Lee MD Work Phone: [facility] 1997 poliovirus vaccine, inactivated Niharika Lee MD Work Phone: [facility] 1997 DTaP-Haemophilus influenzae type b conjugate vaccine Niharika Lee MD Work Phone: [facility] 1997 poliovirus vaccine, inactivated Niharika Lee MD Work Phone: [facility] 1997 DTaP-Haemophilus influenzae type b conjugate vaccine Niharika Lee MD Work Phone: [facility] 1997 hepatitis B vaccine, pediatric or pediatric/adolescent dosage Niharika Lee MD Work Phone: [facility] 1997 poliovirus vaccine, inactivated Niharika Lee MD Work Phone: [facility] 1997 hepatitis B vaccine, pediatric or pediatric/adolescent dosage Niharika Lee MD Work Phone: [facility] Payers Date Payer Category Payer Unknown [id number] 2021 Unknown MMO MMO [employer] [id number] 2021-Present [phone] [address] [place] [address] PPO [id number] 2021 Unknown [id number] Social History Date Type Detail Facility Start: 12-02-2021 End: 03-08-2023 Tobacco smoking status NHIS Never smoked tobacco [facility] Work Phone: Start: 10-20-2021 End: 09-15-2023 Alcohol intake Current drinker of alcohol (finding) [facility] Start: 09-07-2019 History SDOH Alcohol Frequency 3 [facility] Start: 09-07-2019 History SDOH Alcohol Std Drinks 1 [facility] Start: 09-07-2019 History SDOH Alcohol Binge 2 [facility] Start: 09-07-2019 History SDOH Social Connections Phone 5 [facility] Start: 09-07-2019 History SDOH Social Connections Living 7 [facility] Start: 09-07-2019 History SDOH Physical Activity DPW 4 [facility] Start: 09-07-2019 History SDOH Physical Activity MPS 6 [facility] Start: 09-07-2019 Education 14 [facility] Start: 1995 Sex Assigned At Female [facility] Start: 10-10-2021 End: 03-20-2022 Exposure to SARS-CoV-2 (event) Not sure [facility] Start: 12-02-2021 Tobacco use and exposure Smokeless tobacco non-user [facility] Start: 09-07-2019 End: 03-23-2023 History of Social function [facility] Start: 09-07-2019 End: 03-23-2023 Social connection and isolation panel [facility] Do you belong to any clubs or organizations such as restorationist groups, unions, fraternal or athletic groups, or school groups? Yes [facility] Are you now , , , , never or living with a partner? Never [facility] How often to you hav e a drink containing alcohol? 2-4 times a month [facility] How many standard dr inks containing alcohol do you have on a typical day? 1 or 2 [facility] How often do you hav e 6 or more drinks on 1 occasion? Less than monthly [facility] How hard is it for y ou to pay for the very basics like food, housing, medical care, and heating Not very hard [facility] Do you feel stress - tense, restless, nervous, or anxious, or unable to sleep at night because your mind is troubled all the time - these days [OSQ] Rather much [facility] (I/We) worried [place] er (my/our) food would run out before (I/we) got money to buy more. Never true [facility] In the past 12 month s, has lack of transportation kept you from medical appointments or from getting medications? No [facility] In the past 12 month s, was there a time when you were not able to pay the mortgage or rent on time? No [facility] Start: 10-16-2021 Gender identity Identifies as female gender (finding) [facility] Start: 10-16-2021 Sexual orientation Heterosexual (finding) [facility] Start: 03-08-2023 Tobacco use and exposure User of smokeless tobacco [facility] History of tobacco use Chews Tobacco [facility] Start: 03-08-2023 Tobacco Comment Nicotine pouch, [facility] Start: 03-08-2023 Alcohol Comment occ. [facility] Clinical Notes 11-27-2012 to 09-15-2023 Assessment & Plan Note - AJCINTO Roth CNP - 09/15/2023 4:40 PM EDTAssessment & Plan Note - JACINTO Roth CNP - 09/15/2023 4:40 PM EDTPatient Instructions Note Date & Type Note Facility 09-15-2023 Evaluation + Plan note Associated Problem(s): Anxiety and depression Stable. Continue Wellbutrin 300 mg daily [facility] 09-15-2023 Evaluation + Plan note Associated Problem(s): Skin sensation disturbance Left foot exam unremarkable and currently asymptomatic. Likely superficial nerve inflammation. Recommend avoiding shoes that are tight across the top of the foot, ice and elevate 2-3 times daily and follow-up if fails to resolve. Unknown etiology at this time otherwise [facility] 09-15-2023 Miscellaneous Notes Associated Problem(s): Anxiety and depression Stable. Continue Wellbutrin 300 mg daily Associated Problem(s): Skin sensation disturbance Left foot exam unremarkable and currently asymptomatic. Likely superficial nerve inflammation. Recommend avoiding shoes that are tight across the top of the foot, ice and elevate 2-3 times daily and follow-up if fails to resolve. Unknown etiology at this time otherwise documented in this encounter [facility] 09-15-2023 History of Present illness Narrative Patient was identified by name and Date of . Images from the original note were not included. 09/15/2023 David Conti (: 1995) is a 28 y.o. female , Established patient, here for evaluation of the following chief complaint(s): Medication Check and Foot Problem ASSESSMENT/PLAN: 1. Anxiety and depression Assessment & Plan: Stable. Continue Wellbutrin 300 mg daily 2. Skin sensation disturbance Assessment & Plan: Left foot exam unremarkable and currently asymptomatic. Likely superficial nerve inflammation. Recommend avoiding shoes that are tight across the top of the foot, ice and elevate 2-3 times daily and follow-up if fails to resolve. Unknown etiology at this time otherwise Follow up in about 6 months (around 03/17/2024) for Yearly Wellness Visit. SUBJECTIVE/OBJECTIVE: [facility] - David Conti (: 1995) is a 28 y.o. female , Established patient, here for the evaluation of the following chief complaint(s): Medication Check and Foot Problem Anxiety/depression- Doing pretty well, wellbutrin XL 300 mg daily. Denies any SI or HI. Not doing counseling. Reports being able to handle stress better and not feeling as overwhelmed. Left foot problem: Is having a hot sensation/tingling to the top of the left foot and numbness. No known trigger. No known injury. Happening for about 1.5 weeks, will happen intermittently through the day (?50 times or so)- lasts only for a few seconds or so. No swelling or redness noted. Currently asymptomatic Prior to Admission medications Medication Sig Start Date End Date Taking? Authorizing Provider buPROPion XL (Wellbutrin XL) 300 MG 24 hr tablet take 1 tablet by mouth every morning DO NOT CRUSH, CHEW, AND/OR DIVIDE 09/08/23 Yes Tara Herrera APRN - CATIA DESIGNER Richarder 0.15-30 MG-MCG tablet Take 1 tablet by mouth daily. Yes Historical Provider, metFORMIN (Glucophage) 500 MG tablet Take 1 tablet by mouth in the morning and 1 tablet in the evening. Take with meals. 05/18/23 09/15/23 Yes Historical Provider, naltrexone (Depade) 50 MG tablet Take 25 mg by mouth in the morning and 25 mg in the evening. Yes Historical Provider, Cddeeigo-Ffr-Xi-FA (/IRON PO) Take 1 tablet by mouth in the morning. Yes Historical Provider, MV-Min-Fe Fum-FA-DHA ( 1 PO) Take by mouth. Historical Provider, Review of Systems Constitutional: Negative for activity change, chills, fatigue and fever. Respiratory: Negative. Cardiovascular: Negative. Gastrointestinal: Negative. Genitourinary: Negative for difficulty urinating. Musculoskeletal: Left foot. Psychiatric/Behavioral: Positive for decreased concentration. Negative for agitation, dysphoric mood and sleep disturbance. The patient is not nervous/anxious. Vitals: 09/15/23 1307 BP: 129/85 Pulse: 102 Resp: 18 Temp: 36.9 C (98.4 F) TempSrc: Infrared SpO2: 97% Weight: 161 lb 9.6 oz (73.3 kg) Physical Exam Constitutional: General: She is not in acute distress. Appearance: Normal appearance. She is not ill-appearing. HENT: Head: Normocephalic and atraumatic. Cardiovascular: Rate and Rhythm: Normal rate and regular rhythm. Pulses: Normal pulses. Heart sounds: Normal heart sounds. Pulmonary: Effort: Pulmonary effort is normal. Breath sounds: Normal breath sounds. Musculoskeletal: Right foot: Normal. Left foot: Normal. Comments: Left foot exam normal Skin: General: Skin is warm and dry. Neurological: Mental Status: She is alert and oriented to person, place, and time. Psychiatric: Mood and Affect: Mood normal. Behavior: Behavior normal. Thought Content: Thought content normal. Judgment: Judgment normal. An electronic signature was used to authenticate this note. JACINTO Oconnor CNP 09/15/2023 4:40 PM documented in this encounter [facility] [place] [facility] 09-15-2023 Instructions JACINTO Roth CNP - 09/15/2023 1:00 PM EDT Ice and elevate foot couple times a day, be careful not to wear shoes that pinch/pressure to much on top of foot. documented in this encounter [facility] [place] [facility] 07-14-2023 Note HNO ID: [id number] Author: NANCY ORDOÑEZ APRN.CNP Service: ? Author Type: Nurse Practitioner Type: Progress Notes Filed: 07/14/2023 08:47 Note Text: Some documentation from previous visit of 06/16/2023 was copied and pasted, documentation has been reviewed and edited as necessary for today's visit. Patient Summary: David is a 28 year old female who presents for follow-up evaluation of her obesity/weight management to treat PCOS, IFG, elevated LDL, anxiety and depression and prevent relatedco-morbidities. In our previous visits we have discussed lifestyle intervention including a nutrition recommendations and physical activity optimization. Her last office visit was 1 month ago. Irregular menses - Menses 03/17/2023 LMP 1/2-3 spotting No contraception. 20 lb weight gain with Lexapro for anxiety. Changed to bupropion by PCP plans to discuss increasing dose with PCP Assessment/plan from last visit: Metformin 1 gm twice a day with meals - Adjusted to 500 mg at breakfast and 1 gm at dinner but has had frequent diarrhea since increasing to 1 gm twice a day 3 weeks ago. 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 Dad helped her and she started adding protein shakes. Interval History - Awake - 0700 B - 0745 Premier Protein shake S - none L - 1/2 cup cottage cheese with fruit S - none D - 1829 protein, pasta/potato/rice/sweet potato and veg - asparagus, cucumber salad, winter and summer squash/salad S - none Fluids - water, unsweetened tea Bedtime - She feels the medication is helping to lessen hunger and craving to candy controlled Exercise: stable sedentary job at [employer]. 1 mile daily walk with dog Stress: increased - wearing heart monitor Sleep: 7 hours, up to go to bathroom a few times WILDER -no Weight gain since last vist: 2 lbs since last visit 07/14/2023 167 lb BMI: 28.67 06/16/2023 169 lb 05/18/2023 166 lb metformin CrCl cannot be calculated (Patient's most recent lab result is older than the maximum 180 days allowed.). PAST MEDICAL HISTORY Diagnosis Date Exertional asthma 07/28/2011 Generalized anxiety disorder IFG (impaired fasting glucose) 05/18/2023 Medial meniscus tear 07/28/2011 PCOS (polycystic ovarian syndrome) 2021 Unspecified otitis media Recurrent otitis Vocal cord dysfunction 09/07/2011 Current Outpatient Medications Medication Sig Dispense Refill metFORMIN (GLUCOPHAGE) 500 mg tablet Take 2 tablets by mouth two times a day with meals. 360 tablet 0 buPROPion XL (WELLBUTRIN XL) 150 mg 24 hr tablet Take 150 mg by mouth every morning. PNV/iron/folic acid ( QEHBICN-ZYMY-IM ORAL) Take 1 tablet by mouth once daily. albuterol HFA (PROVENTIL HFA, VENTOLIN HFA) 90 mcg/actuation inhaler Inhale 2 Puffs as instructed every 4 hours as needed. 1 Inhaler 0 No current facility-administered medications for this visit. 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 Assessment/Plan: David Conti is a 28 year old yo female with overweight (pre-obesity) who presented today for follow up for supervised weight loss to treat PCOS, IFG, elevated LDL, anxiety and depression and prevent related co-morbidities. ASSESSMENT/PLAN: 1. PCOS (polycystic ovarian syndrome) - ICD9: 256.4, ICD10: E28.2 (primary diagnosis) - Whole food balanced protein low-carb nutrition - METFORMIN 500 MG TABLET - DESOGESTREL 0.15 MG-ETHINYL ESTRADIOL 0.03 MG TABLET - NALTREXONE 50 MG TABLET 2. Irregular menses - ICD9: 626.4, ICD10: N92.6 - DESOGESTREL 0.15 MG-ETHINYL ESTRADIOL 0.03 MG TABLET 3. Anxiety and depression - ICD9: 300.00, 311, ICD10: F41.9, F32.A - Continue bupropion prescribed by PCP- she plans to discuss increasing dose with PCP 4. History of bulimia - ICD9: V11.8, ICD10: Z86.59 - in remission since age 19 5. History of anorexia nervosa - ICD9: V11.8, ICD10: Z86.59 - in remission since age 19 6. Provided repeat prescription for oral contraceptive - ICD9: V25.41, ICD10: Z30.41 - RX for Apri given today. - discussed with patient on how to take OCP's.Given written information - counseled on benefits, risks and possible severe side effects of OCP's. - discussed need to use Condoms to help to prevent STD's including HIV etc. - DESOGESTREL 0.15 MG-ETHINYL ESTRADIOL 0.03 MG TABLET 7. Overweight with body mass index (BMI) of 29 to 29.9 in adult - ICD9: 278.02, V85.25, ICD10: E66.3, Z68.29 - METFORMIN 500 MG TABLET - decrease to 500 mg with breakfast and 1 gm with dinner due to diarrhea with 1 gm twice daily - DESOGESTREL 0.15 MG-ETHINYL ESTRADIOL 0.03 MG TABLET - NALTREXONE 50 MG TABLET Agreeable to adding naltrexone to Wellbutrin to mimic the effect of Contrave. Confirmed no allergies/contraindications to naltrexone. Reviewed potential side effects. Patient will notify me if there are any adverse effec (more content not included)... [facility] 07-14-2023 Instructions Nancy Ordoñez APRN.CATIA DESIGNER - 07/14/2023 8:28 AM EDT The addition of naltrexone to your current buprioprion prescription will mimic the brand name weight loss drug called Contrave. Here is a link to the brand name medication: https://contrave.com/about/ AM PM (early afternoon) Week 1 Naltrexone 12.5 mg (1/4 tablet) None Week 2 Naltrexone 12.5 mg (1/4 tablet) Naltrexone 12.5 mg (1/4 tablet) Week 3 Naltrexone 25 mg (1/2 tablet) Naltrexone 25 mg (1/2 tablet) Week 4 Naltrexone 25 mg (1/2 tablet) Naltrexone 25 mg (1/2 tablet) - Please take your bupropion as usual, these medications need to work together to formulate the desired effect. - If at anytime you feel a positive effect, you can stay at that dose and do not need to increase. - Please stop the medication if you develop symptoms that are concerning. Take low dose naltrexone to: Regulate appetite: Naltrexone helps normalize your metabolism, matching your appetite to resting energy expenditures. Reduce insulin resistance: Naltrexone modulates cellular resistance to insulin, which may lead to weight loss. Improve sleep: Lack of sleep has negative effects on your body s hormonal system, which can lead to weight gain. Naltrexone combats this unhealthy cycle. Improve mood: Combination LDN weight loss medications trigger an increase in serotonin and dopamine production, which decreases anxiety and stress and reduces emotional eating. https://www.[employer].Evisors/na ltrexone#:~:text=Regulate%20appeti te%3A%20Naltrexone%20helps%20norma lize,may%20lead%20to%20weight%20lo ss. Does Wellbutrin cause weight loss? It can. Bupropion (the generic form of Wellbutrin) was initially prescribed as an antidepressant. It is the only antidepressant associated with weight loss (Ernesto, 2019). Healthcare providers noticed that mostly pleasant side effect, and today bupropion is sometimes prescribed as part of a medication for weight loss (naltrexone/bupropion, brand name Contrave), as well as a stop-smoking aid (brand name Zyban). As far as the evidence that bupropion by itself causes weight loss: A 2016 study that analyzed the long-term weight loss effect of various antidepressant medications found that non-smokers who took bupropion lost 7.1 pounds over two years. (This effect was not seen in smokers). Users of the other antidepressants in the study gained weight (Belen, 2016). Bupropion seems to be effective for weight-loss maintenance as well. A 2012 study found that obese adults who took bupropion SR (standard release) in 300mg or 400mg doses lost 7.2% and 10% of their body weight, respectively, over 24 weeks and maintained that weight loss at 48 weeks (Yunier, 2012). And a 2019 review of 27 studies on antidepressants and weight gain found that antidepressant use increases body weight by an average of 5%--except bupropion, which is associated with weight loss (Shan-Tovarechet, 2019). https://ro.co/health-guide/wellbut knb-lhx-eoxxjv-loss/ Bupropion and naltrexone: Patient drug information Access [employer] Online for additional drug information, tools, and databases. Copyright 6845-8770 IMRSV. All rights reserved. (For additional information see Bupropion and naltrexone: Drug information ) Contrave (naltrexone/bupropion) Patient Information Who Is Contrave For? Contrave is a medication for chronic weight management. It is for people with overweight and weight-related complications or obesity. It is meant to be used together with a lifestyle therapy regimen involving a reduced calorie diet and increased physical activity. How Does Contrave Work? Contrave works in the brain as an appetite suppressant. Who Should Not Take Contrave? Women who are , nursing, or planning to become People who have uncontrolled high blood pressure People who have or have had seizures People with a history of eating disorders such as anorexia nervosa or bulimia People who have glaucoma or are at risk for glaucoma People who used to drink a lot of alcohol and abruptly stop drinking People who use other medications containing bupropion, such as Wellbutrin or Aplenzin People who are taking opioid pain relievers or are in opioid withdrawal, or use medicines to help stop taking opioids such as methadone or buprenorphine People who are taking a monoamine oxidase inhibitor (MAOI) now or have taken one within the past 14 days Do not take Contrave with a high fat meal. Swallow Contrave tablets whole. Do not cut, chew, or crush Contrave tablets. If you miss a dose of Contrave, wait until your next regular time to take it. Do not take more than 1 dose of Contrave at a time. Is Contrave a Controlled Substance? No, Contrave is not a controlled substance. Which Medications Might Not Be Safe to Use with Contrave? Contrave can affect how other medicines work in your body, and other medicines can affect how Contrave works. Tell your doctor about all the medicines and supplements you take, especially: Carbamazepine, phenobarbital, or phenytoin--usually given to treat seizures Efavirenz, lopinavir, or ritonavir--used to treat HIV infection Antidepressants Pain medications What Are the Most Common Side Effects of Contrave? Nausea or vomiting Dizziness Changes in the way foods taste or loss of taste Trouble sleeping Constipation or diarrhea Headache Dry mouth What Are the Possible Serious Side Effects of Contrave? Suicidal Thoughts or Actions One of the ingredients in Contrave is bupropion, which has caused some people to have suicidal thoughts or actions or unusual changes in behavior, whether or not they are taking medicines used to treat depression. If you already have depression or another mental illness, taking bupropion may cause your condition to get worse, especially within the first few months of treatment. Let your doctor know if you experience an increase in symptoms of depression, anxiety, irritability, suicidal thoughts, agitation, anger, or other unusual changes in behavior or mood. Seizures There is a risk of having a seizure when you take Contrave. The risk of seizure is higher in people who take higher doses of Contrave, have certain medical conditions, or take Contrave with certain other medicines. If you have a seizure while taking Contrave, stop taking Contrave and call your doctor right away. Do not take Contrave again if you have a seizure. 2 Contrave (naltrexone/bupropion) Patient Information Risk of Opioid Overdose One of the ingredients in Contrave (naltrexone) can increase your chance of having an opioid overdose if you take opioid medicines while taking Contrave. Opioids are common pain medications. Do not use any opioid medications while taking Contrave. Using opioids in the 7 to 10 days before you start taking Contrave may cause you to suddenly have symptoms of opioid withdrawal when you take it. Tell your doctor if you have used these medications in the past 10 days. Inform your doctor that you are taking Contrave before any medical procedure or surgery. Severe Allergic Reactions Some people have had a severe allergic reaction to bupropion, one of the ingredients in Contrave. Stop taking Contrave and call your doctor or go to the nearest hospital emergency room right away if you have signs and symptoms of an allergic reaction such as rash, itching, swelling of the lips or tongue, fever, chest pain, or trouble breathing. Increases in Blood Pressure or Heart Rate Some people may get high blood pressure or have a higher heart rate when taking Contrave. Your doctor should check your blood pressure and heart rate before you start taking Contrave and while you take it. Liver Damage or Hepatitis One of the ingredients in Contrave--naltrexone--can cause liver damage or hepatitis. Stop taking Contrave and tell your doctor if you have any signs or symptoms of liver problems such as stomach pain, dark urine, yellow eyes (jaundice), or extreme fatigue. Manic Episodes One of the ingredients in Contrave--bupropion--can cause some people who were manic or depressed in the past, or who have bipolar disease, to become manic or depressed again. Vision Problems (Angle-Closure Glaucoma) One of the ingredients in Contrave--bupropion--can cause some people to have problems with their vision (angle-closure glaucoma). Signs and symptoms of angle-closure glaucoma may include eye pain, vision changes, or swelling or redness in or around the eye. Ask your eye doctor if you are at risk for angle-closure glaucoma and do not use Contrave if you are at risk. Low Blood Sugar (Hypoglycemia) Weight loss can cause low blood sugar in people with type 2 diabetes who also take medicines used to treat type 2 diabetes (such as insulin or sulfonylureas). You should check your blood sugar before you start taking Contrave and while you take Contrave. This is not intended to be a complete list. For additional information please see the white sourer s website: https://www.[employer].Evisors. Oral Contraceptives: The Pill Beginning the Pill Pills come in either a 21 day pack or a 28 day pack. With the 21 day pack you will take one pill for 21 days then no pill for 7 days, during which time you will have what is known as withdrawal bleeding. The 28 day pack allows you to take a pill every day of the cycle with no interruptions. The first 21 pills are the pills with the active ingredients and the last 7 are the nonmedical pills (placebo) or they may contain iron. There will be bleeding during the week you are taking the nonmedical pills. The advantage to the 28 day pack is that you don t have to keep track of when you stopped the pill. There are a group of 28 day pills that contain 24 active pills and only 4 placebo pills. These are formulated to give you a culinary instructor period. Unless otherwise instructed, you should start your pills the Tuesday following your first day of bleeding with your next period (if your period starts on a Tuesday, you should start pills the same day) Read your information packet that comes with the pills. Pill Benefits The pill is the most popular method of reversible control being used today. Millions of women rely on oral contraceptives as their control method. It is important to have an examination by your physician to determine if the pill is safe for you. There are several advantages associated with the pill: it is 97-98% effective when used correctly; may improve acne; periods are more regular and less painful; there is less iron deficiency anemia in pill users. terminal operations supervisor use is associated with a decreased incidence of ovarian and uterine cancer. There is also no evidence that the pill increases the incidence of any cancer. How Oral Contraceptives Work Oral contraceptives come in two varieties. One is the combination pill which contains both estrogen and progesterone. Combination pills are considered 98-99% effective in preventing . This pill comes in either monophasic, which delivers the same amount of estrogen and progesterone throughout the cycle; and triphasic, which try tries to mimic the normal hormone cycle by changing the levels of the hormones in the pills during the month. There is no real advantage to taking the one over the other. The other type of pill only contains progesterone. It is best used for women who can t take estrogen. This type of pill is slightly less effective than the combination pill in preventing . It is VERY important to take the progesterone only pill at the same time every day. Oral contraceptives prevent ovulation (release of an egg from the ovary) by suppressing the pituitary gland s action. The pill does NOT prevent sexually transmitted disease. Obtaining a Prescription It is important to see your doctor before starting oral contraceptives so that you can have a full medical history taken and a physical examination given. Certain medical conditions may make the pill inappropriate for you, therefore it is very important to be honest and as complete as possible with the information you share with your doctor. The types of predisposing factors which would make the pill a poor choice of control would include: History of blood clots Stroke Serious liver disease or impaired liver function Unexplained vaginal bleeding or Cancer of the reproductive system Active gall bladder disease Hypertension Possible Side Effects It can take up to three months for your body to become adjusted to the pill. The more common side effects experienced at this time are: breakthrough spotting or bleeding, which is bleeding at any other time other than when you should be having a period; nausea or vomiting; breast tenderness; and mild fluid retention. There is no assisted weight gain with the use of the pill. Breakthrough bleeding is the most common complaint of new pill users. There is no way to predict who will have it and there is no way of preventing it. Breakthrough bleeding usually subsides on its own with no further treatment after the first three months of taking the pill. If these symptoms continue to occur after the first three months you should check with your physician to see if there is any physical cause and possibly change to another control pill. Problems: Missed 1 pill: Take 2 pills the next day. Missed 2 pills: Take 2 pills the next day and 2 pills the following day. Also use another form of control (condoms) along with the pill for the rest of the month. Missed 3 or more pills: You have two choices. You can take two pills each day until you are on schedule, plus use an additional form of control along with the pill for the rest of the month. Or you can stop the pill and start a completely new pack of pills the next Tuesday. You must use another form of control with the pill for at least the first two weeks of the new pack. You re ill and you have been vomiting or have diarrhea: You must use another form of control with the pill since the pill may not be fully absorbed during your illness. Continue to use the added control until the end of the cycle. Desire to become : Stop using the pill for one month before trying to become . Taking other medications: The control pill is less effective when you take the antibiotic Rifampin, epilepsy (seizure) drugs such as phenytoin, carbamazepine, phenobarbital, topiramate and some medications for HIV. Let your doctor know if you start taking any of these medications while on the pill. Symptoms to Notify Your Doctor with Immediately: Pain in your chest or legs Continuous blurred vision Severe headaches Slurred speech Tingling or weakness on one side of your body Shortness of breath Swelling of one leg Refills of Control Pills You need to see a doctor every year for a refill of your prescription. This is necessary in order that your health can be monitored closely while you are taking control pills. If your prescription should before your next scheduled appointment you can usually get a one month extension from your doctors office if you call during regular business hours about one week before you need to start the new package of pills. This allows the physician to refer to your chart for necessary health information. Bupropion: Patient drug information Access [employer] Online for additional drug information, tools, and databases. Copyright 7327-8524 IMRSV. All rights reserved. Contributor Disclosures (For additional information see Bupropion: Drug information and see Bupropion: Pediatric drug information ) You must carefully read the Consumer Information Use and Disclaimer below in order to understand and correctly use this information. Brand Names: US Aplenzin; Forfivo XL; Wellbutrin SR; Wellbutrin XL; Zyban [DSC] Brand Names: Jasmyn MYLAN-BuPROPion XL; ODAN Bupropion SR; PMS-BuPROPion SR; RATIO-BuPROPion SR [DSC]; TARO-Bupropion XL; TEVA-Bupropion XL; Wellbutrin SR; Wellbutrin XL; Zyban Warning Drugs like this one have raised the chance of suicidal thoughts or actions in children and young adults. The risk may be greater in people who have had these thoughts or actions in the past. All people who take this drug need to be watched closely. Call the doctor right away if signs like low mood (depression), nervousness, restlessness, grouchiness, panic attacks, or changes in mood or actions are new or worse. Call the doctor right away if any thoughts or actions of suicide occur. What is this drug used for? It is used to treat low mood (depression). It is used to prevent seasonal affective disorder (SAD). It is used to help you stop smoking. It may be given to you for other reasons. Talk with the doctor. What do I need to tell my doctor BEFORE I take this drug? If you are allergic to this drug; any part of this drug; or any other drugs, foods, or substances. Tell your doctor about the allergy and what signs you had. If you have ever had seizures. If you drink a lot of alcohol and you stop drinking all of a sudden. If you use certain other drugs like drugs for seizures or anxiety and you stop using them all of a sudden. If you have ever had an eating problem like anorexia or bulimia. If you have any of these health problems: Kidney disease or liver disease. If you have taken certain drugs for depression or Parkinson's disease in the last 14 days. This includes isocarboxazid, phenelzine, tranylcypromine, selegiline, or rasagiline. Very high blood pressure may happen. If you are taking any of these drugs: Linezolid or methylene blue. If you are taking another drug that has the same drug in it. This is not a list of all drugs or health problems that interact with this drug. Tell your doctor and pharmacist about all of your drugs (prescription or OTC, natural products, vitamins) and health problems. You must check to make sure that it is safe for you to take this drug with all of your drugs and health problems. Do not start, stop, or change the dose of any drug without checking with your doctor. What are some things I need to know or do while I take this drug? For all patients taking this drug: Tell all of your health care providers that you take this drug. This includes your doctors, nurses, pharmacists, and dentists. Avoid driving and doing other tasks or actions that call for you to be alert or have clear eyesight until you see how this drug affects you. This drug may affect certain lab tests. Tell all of your health care providers and lab workers that you take this drug. Do not stop taking this drug all of a sudden without calling your doctor. You may have a greater risk of side effects. If you need to stop this drug, you will want to slowly stop it as ordered by your doctor. High blood pressure has happened with this drug. Have your blood pressure checked as you have been told by your doctor. This drug may raise the chance of seizures. The risk may be higher in people who take higher doses, have certain health problems, or take certain other drugs. People who suddenly stop drinking a lot of alcohol or suddenly stop taking certain drugs (like drugs used for anxiety, sleep, or seizures) may also have a higher risk. Talk to your doctor to see if you have a greater chance of seizures. Avoid drinking alcohol while taking this drug. Talk with your doctor before you use marijuana, other forms of cannabis, or prescription or OTC drugs that may slow your actions. It may take several weeks to see the full effects. This drug is not approved for use in children. Talk with the doctor. If you are 65 or older, use this drug with care. You could have more side effects. Tell your doctor if you are , plan on getting , or are breast-feeding. You will need to talk about the benefits and risks to you and the baby. If you smoke: Not all products are approved for use to help stop smoking. Talk with the doctor to make sure that you have the right product. New or worse mental, mood, or behavior problems have happened when bupropion has been used to stop smoking. These problems include thoughts of suicide or murder, depression, forceful actions, fury, anxiety, and anger. These problems have happened in people with and without a history of mental or mood problems. Talk with the doctor. What are some side effects that I need to call my doctor about right away? WARNING/CAUTION: Even though it may be rare, some people may have very bad and sometimes deadly side effects when taking a drug. Tell your doctor or get medical help right away if you have any of the following signs or symptoms that may be related to a very bad side effect: Signs of an allergic reaction, like rash; hives; itching; red, swollen, blistered, or peeling skin with or without fever; wheezing; tightness in the chest or throat; trouble breathing, swallowing, or talking; unusual hoarseness; or swelling of the mouth, face, lips, tongue, or throat. Signs of high blood pressure like very bad headache or dizziness, passing out, or change in eyesight. Feeling confused, not able to focus, or change in behavior. Hallucinations (seeing or hearing things that are not there). If seizures are new or worse after starting this drug. Chest pain or pressure, a fast heartbeat, or an abnormal heartbeat. Swelling. Shortness of breath. Change in hearing. Ringing in ears. Passing urine more often. Swollen gland. Trouble moving around. Some people may have a higher chance of eye problems with this drug. Your doctor may want you to have an eye exam to see if you have a higher chance of these eye problems. Call your doctor right away if you have eye pain, change in eyesight, or swelling or redness in or around the eye. A severe skin reaction (Roche-Ced syndrome/toxic epidermal necrolysis) may happen. It can cause severe health problems that may not go away, and sometimes . Get medical help right away if you have signs like red, swollen, blistered, or peeling skin (with or without fever); red or irritated eyes; or sores in your mouth, throat, nose, or eyes. What are some other side effects of this drug? All drugs may cause side effects. However, many people have no side effects or only have minor side effects. Call your doctor or get medical help if any of these side effects or any other side effects bother you or do not go away: All products: Dizziness or headache. Constipation, diarrhea, stomach pain, upset stomach, throwing up, or feeling less hungry. Shakiness. Feeling nervous and excitable. Strange or odd dreams. Gas. Dry mouth. Trouble sleeping. Muscle or joint pain. Nose or throat irritation. Sweating a lot. A change in weight without trying. Extended-release tablets: For some brands, you may see the tablet shell in your stool. For these brands, this is normal and not a cause for concern. If you have questions, talk with your doctor. These are not all of the side effects that may occur. If you have questions about side effects, call your doctor. Call your doctor for medical advice about side effects. You may report side effects to your national health agency. How is this drug best taken? Use this drug as ordered by your doctor. Read all information given to you. Follow all instructions closely. For all uses of this drug: Do not take this drug more often than you are told. This may raise the risk of seizures. Be sure you know how far apart to take your doses. Take in the morning if taking once a day. Take with or without food. If you are not able to sleep, do not take this drug too close to bedtime. Talk with your doctor. Swallow whole. Do not chew, break, or crush. Keep taking this drug as you have been told by your doctor or other health care provider, even if you feel well. If you have trouble swallowing, talk with your doctor. For stopping smoking: You may take this drug for 1 week before you stop smoking. Nicotine products and counseling may be used at the same time for best results. If you have not been able to quit smoking after taking this drug for 12 weeks, talk with your doctor. You may have signs of nicotine withdrawal when you try to quit smoking even when using drugs like this one to help you quit smoking. There are many signs of nicotine withdrawal. Rarely depression and suicidal thoughts have happened in people trying to quit smoking. Talk with your doctor. What do I do if I miss a dose? Skip the missed dose and go back to your normal time. Do not take 2 doses at the same time or extra doses. How do I store and/or throw out this drug? Store at room temperature protected from light. Store in a dry place. Do not store in a bathroom. Keep all drugs in a safe place. Keep all drugs out of the reach of children and pets. Throw away unused or drugs. Do not flush down a toilet or pour down a drain unless you are told to do so. Check with your pharmacist if you have questions about the best way to throw out drugs. There may be drug take-back programs in your area. General drug facts If your symptoms or health problems do not get better or if they become worse, call your doctor. Do not share your drugs with others and do not take anyone else's drugs. Some drugs may have another patient information leaflet. If you have any questions about this drug, please talk with your doctor, nurse, pharmacist, or other health care provider. If you think there has been an overdose, call your poison control center or get medical care right away. Be ready to tell or show what was taken, how much, and when it happened. Last Reviewed [id number] Consumer Information Use and Disclaimer This generalized information is a limited summary of diagnosis, treatment, and/or medication information. It is not meant to be comprehensive and should be used as a tool to help the user understand and/or assess potential diagnostic and treatment options. It does NOT include all information about conditions, treatments, medications, side effects, or risks that may apply to a specific patient. It is not intended to be medical advice or a substitute for the medical advice, diagnosis, or treatment of a health care provider based on the health care provider's examination and assessment of a patient's specific and unique circumstances. Patients must speak with a health care provider for complete information about their health, medical questions, and treatment options, including any risks or benefits regarding use of medications. This information does not endorse any treatments or medications as safe, effective, or approved for treating a specific patient. [employer] and its affiliates disclaim any warranty or liability relating to this information or the use thereof. The use of this information is governed by the Terms of Use, available at https://www.IntellectSpace.Evisors/en/k now/dqutsfjq-rrsmwiqlaazko-ezjvq. 2021 [employer]. and its affiliates and/or licensors. All rights reserved. documented in this encounter [facility] 07-14-2023 History of Present illness Narrative Some documentation from previous visit of 06/16/2023 was copied and pasted, documentation has been reviewed and edited as necessary for today's visit. Patient Summary: David is a 28 year old female who presents for follow-up evaluation of her obesity/weight management to treat PCOS, IFG, elevated LDL, anxiety and depression and prevent relatedco-morbidities. In our previous visits we have discussed lifestyle intervention including a nutrition recommendations and physical activity optimization. Her last office visit was 1 month ago. Irregular menses - Menses 03/17/2023 LMP 1/2-3 spotting No contraception. 20 lb weight gain with Lexapro for anxiety. Changed to bupropion by PCP plans to discuss increasing dose with PCP Assessment/plan from last visit: Metformin 1 gm twice a day with meals - Adjusted to 500 mg at breakfast and 1 gm at dinner but has had frequent diarrhea since increasing to 1 gm twice a day 3 weeks ago. 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 Dad helped her and she started adding protein shakes. Interval History - Awake - 0700 B - 0745 Premier Protein shake S - none L - 1/2 cup cottage cheese with fruit S - none D - 183 protein, pasta/potato/rice/sweet potato and veg - asparagus, cucumber salad, winter and summer squash/salad S - none Fluids - water, unsweetened tea Bedtime - She feels the medication is helping to lessen hunger and craving to candy controlled Exercise: stable sedentary job at [employer]. 1 mile daily walk with dog Stress: increased - wearing heart monitor Sleep: 7 hours, up to go to bathroom a few times WILDER -no Weight gain since last vist: 2 lbs since last visit 07/14/2023 167 lb BMI: 28.67 06/16/2023 169 lb 05/18/2023 166 lb metformin CrCl cannot be calculated (Patient's most recent lab result is older than the maximum 180 days allowed.). PAST MEDICAL HISTORY Diagnosis Date Exertional asthma 07/28/2011 Generalized anxiety disorder IFG (impaired fasting glucose) 05/18/2023 Medial meniscus tear 07/28/2011 PCOS (polycystic ovarian syndrome) 2021 Unspecified otitis media Recurrent otitis Vocal cord dysfunction 09/07/2011 Current Outpatient Medications Medication Sig Dispense Refill metFORMIN (GLUCOPHAGE) 500 mg tablet Take 2 tablets by mouth two times a day with meals. 360 tablet 0 buPROPion XL (WELLBUTRIN XL) 150 mg 24 hr tablet Take 150 mg by mouth every morning. PNV/iron/folic acid ( [id number]-[id number]-NW ORAL) Take 1 tablet by mouth once daily. albuterol HFA (PROVENTIL HFA, VENTOLIN HFA) 90 mcg/actuation inhaler Inhale 2 Puffs as instructed every 4 hours as needed. 1 Inhaler 0 No current facility-administered medications for this visit. Occupation: [employer] Contraception: none BP 126/82 Pulse 80 Wt 167 lb (75.8 kg) LMP 04/26/2023 SpO2 98% BMI 28.67 kg/m Assessment/Plan: David Conti is a 28 year old yo female with overweight (pre-obesity) who presented today for follow up for supervised weight loss to treat PCOS, IFG, elevated LDL, anxiety and depression and prevent related co-morbidities. ASSESSMENT/PLAN: 1. PCOS (polycystic ovarian syndrome) - ICD9: 256.4, ICD10: E28.2 (primary diagnosis) - Whole food balanced protein low-carb nutrition - METFORMIN 500 MG TABLET - DESOGESTREL 0.15 MG-ETHINYL ESTRADIOL 0.03 MG TABLET - NALTREXONE 50 MG TABLET 2. Irregular menses - ICD9: 626.4, ICD10: N92.6 - DESOGESTREL 0.15 MG-ETHINYL ESTRADIOL 0.03 MG TABLET 3. Anxiety and depression - ICD9: 300.00, 311, ICD10: F41.9, F32.A - Continue bupropion prescribed by PCP- she plans to discuss increasing dose with PCP 4. History of bulimia - ICD9: V11.8, ICD10: Z86.59 - in remission since age 19 5. History of anorexia nervosa - ICD9: V11.8, ICD10: Z86.59 - in remission since age 19 6. Provided repeat prescription for oral contraceptive - ICD9: V25.41, ICD10: Z30.41 - RX for Apri given today. - discussed with patient on how to take OCP's.Given written information - counseled on benefits, risks and possible severe side effects of OCP's. - discussed need to use Condoms to help to prevent STD's including HIV etc. - DESOGESTREL 0.15 MG-ETHINYL ESTRADIOL 0.03 MG TABLET 7. Overweight with body mass index (BMI) of 29 to 29.9 in adult - ICD9: 278.02, V85.25, ICD10: E66.3, Z68.29 - METFORMIN 500 MG TABLET - decrease to 500 mg with breakfast and 1 gm with dinner due to diarrhea with 1 gm twice daily - DESOGESTREL 0.15 MG-ETHINYL ESTRADIOL 0.03 MG TABLET - NALTREXONE 50 MG TABLET Agreeable to adding naltrexone to Wellbutrin to mimic the effect of Contrave. Confirmed no allergies/contraindications to naltrexone. Reviewed potential side effects. Patient will notify me if there are any adverse effects with the medication. Prescription provided today and dosing schedule provided. Patient advised to increase dose only if tolerated. Will remain on lower dose if effective. Discussed increased risk for opioid overdose if opioid medicines are taken while taking naltrexone. Aware to not use any opioid medications while taking this medication. Has not taken any opioid medication in the last 7-10 days. Will discontinue naltrexone before any medical procedure or surgery. - Continue bupropion prescribed by PCP- she plans to discuss increasing dose with PCP - Continue whole food low-carb diet with 30 g of protein 3 times a day and 30 g of carbs at lunch and dinner only. - continue exercise. Discussed benefits of walking 15 minutes immediately after meals Due to history of anorexia and bulimia, we agreed that in-office visits would be best for now. Follow up in 6 weeks Nancy Ordoñez APRN.CNP Advanced Education from the [employer] Medical Decision Making: Problems: Moderate: 1+ chronic illnesses with change Risk: Moderate: Drug management and Moderate risk from testing/treatment Medical Decision Making Level: 4 - Moderate documented in this encounter [facility] 06-16-2023 Note HNO ID: [id number] Author: NANCY ORDOÑEZ APRN.CNP Service: ? Author Type: Nurse Practitioner Type: Progress Notes Filed: 06/16/2023 19:59 Note Text: Some documentation from previous visit of 05/18/2022 was copied and pasted, documentation has been reviewed and edited as necessary for today's visit. Patient Summary: David is a 27 year old female who presents for follow-up evaluation of her obesity/weight management to treat PCOS, IFG, elevated LDL, anxiety and depression and prevent relatedco-morbidities. In our previous visits we have discussed lifestyle intervention including a nutrition recommendations and physical activity optimization. Her last office visit was 1 month ago. Irregular menses - Menses 03/17/2023 LMP 1/2-3 spotting 20 lb weight gain with Lexapro for anxiety. Changed to bupropion by PCP. Assessment/plan from last visit: Metformin 500 mg twice a day with meals - tried 1 gm at dinner but had nausea and mild diarrhea (actually took at bedtime) Bupropion 150 mg 24/hr tab for anxiety and depression Was in [place] with who races - very hectic travel. Tried to eat healthier. Quit second job so life is becoming more calm History of anorexia and bulimia in HS - no treatment, Dad helped her and she started adding protein shakes. Interval History - changes made in past month Awake - 0700 but is changing to 0520 to exercise before work B - 0745 Premier Protein shake S - none L - SKIP S - none D - 1830 protein, pasta/potato/rice/sweet potato and veg - asparagus, cucumber salad, winter and summer squash S - none or Skinny popcorn Fluids - water, zero sugar electrolyte drink mixes, unsweetened tea Bedtime - She feels the medication is helping to lessen hunger and craving to candy Exercise: stable sedentary job at [employer]. Just got gym membership - walking and free weights Stress: decreased - races and season has not started yet and decreased stress after quitting second job Sleep: 7 hours, well rested WILDER -no Weight gain since last vist: 3 lbs since last visit 06/16/2023 169 lb 05/18/2023 166 lb metformin CrCl cannot be calculated (Patient's most recent lab result is older than the maximum 180 days allowed.). PAST MEDICAL HISTORY Diagnosis Date Exertional asthma 07/28/2011 Generalized anxiety disorder IFG (impaired fasting glucose) 05/18/2023 Medial meniscus tear 07/28/2011 PCOS (polycystic ovarian syndrome) 2021 Unspecified otitis media Recurrent otitis Vocal cord dysfunction 09/07/2011 Current Outpatient Medications Medication Sig Dispense Refill buPROPion XL (WELLBUTRIN XL) 150 mg 24 hr tablet Take 150 mg by mouth every morning. PNV/iron/folic acid ( [id number]-[id number]-BL ORAL) Take 1 tablet by mouth once daily. metFORMIN (GLUCOPHAGE) 500 mg tablet Take 1 tablet by mouth two times a day with meals. 180 tablet 0 albuterol HFA (PROVENTIL HFA, VENTOLIN HFA) 90 mcg/actuation inhaler Inhale 2 Puffs as instructed every 4 hours as needed. 1 Inhaler 0 No current facility-administered medications for this visit. BP 116/84 Wt 169 lb (76.7 kg) LMP 04/26/2023 BMI 29.01 kg/m? Assessment/Plan: David Conti is a 27 year old yo female with overweight (pre-obesity) who presented today for follow up for supervised weight loss to treat PCOS, IFG, elevated LDL, anxiety and depression and prevent related co-morbidities. ASSESSMENT/PLAN: 1. PCOS (polycystic ovarian syndrome) - ICD9: 256.4, ICD10: E28.2 (primary diagnosis) - Whole food balanced protein low-carb nutrition - METFORMIN 500 MG TABLET 2. Elevated LDL cholesterol level - ICD9: 272.0, ICD10: E78.00 - benefits of weight loss discussed 3. IFG (impaired fasting glucose) - ICD9: 790.21, ICD10: R73.01 - METFORMIN 500 MG TABLET 4. Irregular menses - ICD9: 626.4, ICD10: N92.6 - METFORMIN 500 MG TABLET 5. Anxiety and depression - ICD9: 300.00, 311, ICD10: F41.9, F32.A - well-controlled with bupropion 6. History of bulimia - ICD9: V11.8, ICD10: Z86.59 - in remission 7. History of anorexia nervosa - ICD9: V11.8, ICD10: Z86.59 - in remission 8. Overweight with body mass index (BMI) of 29 to 29.9 in adult - ICD9: 278.02, V85.25, ICD10: E66.3, Z68.29 - METFORMIN 500 MG TABLET - continue to increase dose as tolerated - Recommended whole food low-carb diet with 30 g of protein 3 times a day and 30 g of carbs at lunch and dinner only. Given tracking log. - Given 15 gram carb whole food and protein suggestion list. - Given protein snack ideas - continue exercise Lengthy discussion regarding history of anorexia and bulimia which is in remission. Discussed appropriate amount of exercise. We agreed that in-office visits would be best for now. Follow up in 4 weeks Nancy Ordoñez APRN.SANDIP Advanced Education from the [employer] Medical Decision Making: Problems: Moderate: 1+ chronic illnesses with change Risk: Moderate: Drug man (more content not included)... [facility] 06-16-2023 Instructions Nancy Ordoñez APRN.CNP - 06/16/2023 7:10 AM EST - Whole food low-carb diet with 30 g of protein 3 times a day and up to 30 g of carbs at lunch and dinner only. Meals - protein is a goal and carbohydrates are a limit. Snacks - all protein or more protein than carbs Use tracking log as a worksheet and bring with you to your next appointment. Protein - no carbs Egg 1 large - 6g Egg white 1 large 3.6g 3 oz is approximately the size of a deck of cards and equals 21 g protein Beef, Chicken, [place], Pork, Ricardo 1 oz 7g Fish, Tuna Fish 1 oz 7g (Starkist tuna packet 2.6 oz 17 gm protein) Seafood (Crabmeat, Shrimp, Lobster) 1 oz 6g Protein shakes (read labels) Premier Protein or generic WalMart Equate, Aldi Elevate, Meijer High Performance- 30g protein & 1g carb - meal replacement Premier Protein plant protein powder - 25 gm protein, 0 suger/2 carb Vanilla and chocolate (not a meal replacement) Fairlife 30 gram protein - 30g protein & 3g carb BOOST Glucose Control Max 30g Protein Nutritional Drink - 30g protein & 1 carb - meal replacement Slimfast High Protein - 20g protein & 1g carb Ensure Max Protein Nutrition Shake 30g protein & 2 carb Protein AND carbs Beef/[place] Jerky 1 oz dried 10-15g protein - check carb count, can be high if sugar added Slim Rodo - 6 gm protein and 4 net carb Great Value original turkey sausage sticks - 7 gm protein and 2 gm carb Imitation Crab Meat 1 oz - 2g protein & 4g carb Milk, skim 2% or 1% 8 oz - 8g protein & 12g carb Latvian yogurt Full Fat Latvian Yogurt 1 cup - 20.4g protein & 9.1g carb 2% Latvian Yogurt 1 cup - 22.7g protein & 9.1g carb 0% (fat-free) Latvian Yogurt - 1 cup 24g protein & 9.3g carb :ratio, KETO Friendly Dairy Snack 1 single svg - 15g protein & 2g carb :ratio Protein 1 single svg - 25g protein & 8g carb Dannon Light + Fit 1 single csvg - 12g protein & 9g carb Two Good Lowfat Latvian Yogurt, [place], Lower Sugar - 12g protein & 2g carb Oikos Triple Zero Latvian Nonfat Yogurt 1 single svg - 15g protein & 7g carb Aldi Latvian yogurt 10g protein & 4 g carb Cheese each oz Brie 5.9g protein & 0.1g carb Cheddar Cheese 7g protein & 0.4g carb Mozzarella Cheese 6.3g protein & 0.6g carb Terrence Cheese 6.7g protein & 0.7g carb Parmesan Cheese 10g protein & 0.9g carb Cream Cheese 1.7g protein & 1.2g carb Feta 4g protein & 1.2g carb Italian Cheese 7.6g protein & 1.5g carb Portillo s Low Fat Cottage Cheese 1/2cup 12g protein & 4g carb Legumes Lentils cup 9g protein & 20g carb Bertrand beans cup 7g protein & 20g carb Kidney, Black, Metolius, Cannellini beans cup 8g protein & 20g carb Soybeans 1/2 c 14g protein & 8.5g carb Peanut butter, natural 2 Tbsp 7-8g protein & 4g net carbs, 190 calories Pickett milk, unsweetened 8 oz 1g protein & 2g carb Soy milk 8 oz 3.5g protein & 1.6g carb Tofu 1/2 cup 10g protein & 2.3g carb Nuts and Seeds per oz Pumpkin Seeds - 6.9g protein & 5g carb Almonds - 5.9g protein & 6.1g carb Rooks Seeds - 5.8g protein & 5.6g carb Pistachios - 5.8g protein & 7.8g carb Cashews - 5.1g protein & 9.2g carb Walnuts - 4.3g protein & 3.8g carb Hazelnuts - 4.2g protein & 4.7g carb [place] Nuts - 4.0g protein & 3.4g carb Pecans - 2.6g protein & 3.9g carb Peanuts - 7g protein & 4.6g carb <15 gram carb fruit options Berries have the lowest sugar content 1/2 cup diced honeydew melon - 8 carbs 1/2 cup diced watermelon - 6 carbs One half medium grapefruit - 10.5 carbs 1 medium orange -15.5 carbs 1 medium peach -14.5 carbs 1/2 cup fresh cranberries - 6.5 carbs 1 medium plum -7.5 carbs 1/2 cup raspberries -7.5 carbs 1 medium Shira -9 carbs 1/2 cup fresh pineapple -11 carbs 1 medium nectarine - 15 carbs 1/2 cup blueberries - 11 carbs - may actually help you lose weight 1 medium kiwi without skin - 11 carbs 1/2 cup fresh cherries -11 carbs 1 medium tangerine -12 carbs 1/2 cup sliced cheo -14 carbs 1/2 medium banana 1/2 c grapes 1/2 medium apple - 12.5 carbs 1/2 c strawberries - 12.7 carbs 5 (FIVE) gram carb vegetable options 1 cup raw OR cup cooked: Asparagus Cabbage Spinach Peppers Green beans Carrots Tomato Portia Cunningham sprouts Cauliflower Lettuce Snap peas Broccoli Eggplant Zucchini Turnips Spaghetti squash Brussel sprouts 15 gram carb vegetable options cup cooked green peas cup cooked corn or hominy corn on the cob, large (5 oz) cup cooked sweet potato, plain cup cooked potato, plain 1 small potato or sweet potato 1 cup winter squash (pumpkin, acorn, butternut) 1 cup marinara or pasta sauce - check label cup tomato juice cup tomato puree Beans, Seeds, Nuts cup cooked beans (kidney, hays, red, green, etc.) cup cooked lentils cup baked beans 4 tablespoons nut butter Grains White long-grain rice 1/2 c 2g protein 22.5 carb Brown rice 1/2 c 5.5g protein 24 carb Quinoa 1/2 c 4 gm complete protein 25 carbs Oatmeal 30 High Protein Snack Ideas 1. Jerky 2. [place] mix without or minimal dried fruit 3. [place] roll-ups 4. Latvian yogurt 5. Veggies and yogurt dip 6. Tuna 7. Hard-boiled eggs 8. Peanut butter celery sticks 9. No-bake energy bites 10. Cheese slices/ Cheese Stick 11. Handful of almonds 12. Roasted chickpeas 13. Hummus and veggies 14. Cottage Cheese 15. Celery/fruit with peanut butter 16. Beef sticks (Grass-fed, natural ingredients) 17. Protein bars 18. Canned [place] 19. Matthew pudding 20. Homemade granola - rolled oats, nuts, and a little sweetener - 1/4 cup serving 21. Pumpkin seeds 22. Nut butter 23. Protein shakes 24. Edamame 25. Avocado and chicken salad 26. Fruit and nut bars - natural ingredients without added sugar. 27. Lentil salad 28. Overnight oatmeal 29. Egg muffins 30. Leftover protein or lunch meat documented in this encounter [facility] 06-16-2023 History of Present illness Narrative Some documentation from previous visit of 05/18/2022 was copied and pasted, documentation has been reviewed and edited as necessary for today's visit. Patient Summary: David is a 27 year old female who presents for follow-up evaluation of her obesity/weight management to treat PCOS, IFG, elevated LDL, anxiety and depression and prevent relatedco-morbidities. In our previous visits we have discussed lifestyle intervention including a nutrition recommendations and physical activity optimization. Her last office visit was 1 month ago. Irregular menses - Menses 03/17/2023 LMP 1/2-3 spotting 20 lb weight gain with Lexapro for anxiety. Changed to bupropion by PCP. Assessment/plan from last visit: Metformin 500 mg twice a day with meals - tried 1 gm at dinner but had nausea and mild diarrhea (actually took at bedtime) Bupropion 150 mg 24/hr tab for anxiety and depression Was in [place] with who races - very hectic travel. Tried to eat healthier. Quit second job so life is becoming more calm History of anorexia and bulimia in HS - no treatment, Dad helped her and she started adding protein shakes. Interval History - changes made in past month Awake - 0700 but is changing to 0520 to exercise before work B - 0745 Premier Protein shake S - none L - SKIP S - none D - 183 protein, pasta/potato/rice/sweet potato and veg - asparagus, cucumber salad, winter and summer squash S - none or Skinny popcorn Fluids - water, zero sugar electrolyte drink mixes, unsweetened tea Bedtime - She feels the medication is helping to lessen hunger and craving to candy Exercise: stable sedentary job at [employer]. Just got gym membership - walking and free weights Stress: decreased - races and season has not started yet and decreased stress after quitting second job Sleep: 7 hours, well rested WILDER -no Weight gain since last vist: 3 lbs since last visit 06/16/2023 169 lb 05/18/2023 166 lb metformin CrCl cannot be calculated (Patient's most recent lab result is older than the maximum 180 days allowed.). PAST MEDICAL HISTORY Diagnosis Date Exertional asthma 07/28/2011 Generalized anxiety disorder IFG (impaired fasting glucose) 05/18/2023 Medial meniscus tear 07/28/2011 PCOS (polycystic ovarian syndrome) 2021 Unspecified otitis media Recurrent otitis Vocal cord dysfunction 09/07/2011 Current Outpatient Medications Medication Sig Dispense Refill buPROPion XL (WELLBUTRIN XL) 150 mg 24 hr tablet Take 150 mg by mouth every morning. PNV/iron/folic acid ( [id number]-WVYG-[id number] ORAL) Take 1 tablet by mouth once daily. metFORMIN (GLUCOPHAGE) 500 mg tablet Take 1 tablet by mouth two times a day with meals. 180 tablet 0 albuterol HFA (PROVENTIL HFA, VENTOLIN HFA) 90 mcg/actuation inhaler Inhale 2 Puffs as instructed every 4 hours as needed. 1 Inhaler 0 No current facility-administered medications for this visit. BP 116/84 Wt 169 lb (76.7 kg) LMP 04/26/2023 BMI 29.01 kg/m Assessment/Plan: David Conti is a 27 year old yo female with overweight (pre-obesity) who presented today for follow up for supervised weight loss to treat PCOS, IFG, elevated LDL, anxiety and depression and prevent related co-morbidities. ASSESSMENT/PLAN: 1. PCOS (polycystic ovarian syndrome) - ICD9: 256.4, ICD10: E28.2 (primary diagnosis) - Whole food balanced protein low-carb nutrition - METFORMIN 500 MG TABLET 2. Elevated LDL cholesterol level - ICD9: 272.0, ICD10: E78.00 - benefits of weight loss discussed 3. IFG (impaired fasting glucose) - ICD9: 790.21, ICD10: R73.01 - METFORMIN 500 MG TABLET 4. Irregular menses - ICD9: 626.4, ICD10: N92.6 - METFORMIN 500 MG TABLET 5. Anxiety and depression - ICD9: 300.00, 311, ICD10: F41.9, F32.A - well-controlled with bupropion 6. History of bulimia - ICD9: V11.8, ICD10: Z86.59 - in remission 7. History of anorexia nervosa - ICD9: V11.8, ICD10: Z86.59 - in remission 8. Overweight with body mass index (BMI) of 29 to 29.9 in adult - ICD9: 278.02, V85.25, ICD10: E66.3, Z68.29 - METFORMIN 500 MG TABLET - continue to increase dose as tolerated - Recommended whole food low-carb diet with 30 g of protein 3 times a day and 30 g of carbs at lunch and dinner only. Given tracking log. - Given 15 gram carb whole food and protein suggestion list. - Given protein snack ideas - continue exercise Lengthy discussion regarding history of anorexia and bulimia which is in remission. Discussed appropriate amount of exercise. We agreed that in-office visits would be best for now. Follow up in 4 weeks Nancy Ordoñez APRN.CNP Advanced Education from the [employer] Medical Decision Making: Problems: Moderate: 1+ chronic illnesses with change Risk: Moderate: Drug management and Moderate risk from testing/treatment Medical Decision Making Level: 4 - Moderate documented in this encounter [facility] 06-15-2023 Evaluation + Plan note Associated Problem(s): PCOS (polycystic ovarian syndrome) Recommend following up with [employer] regarding side effects of metformin and requesting if she can take extended release metformin to see if that is better tolerated. [facility] 06-15-2023 Miscellaneous Notes Associated Problem(s): PCOS (polycystic ovarian syndrome) Recommend following up with [employer] regarding side effects of metformin and requesting if she can take extended release metformin to see if that is better tolerated. Associated Problem(s): Anxiety and depression Denies any suicidal or homicidal ideation. Anxiety and depression have improved we will continue Wellbutrin 150 mg daily, patient to give us an update in about 1 month via Servoyantt if she would like to increase the dose to 300 mg. We will schedule her for follow-up in 3 months documented in this encounter [facility] 06-15-2023 Miscellaneous Notes Associated Problem(s): PCOS (polycystic ovarian syndrome) Recommend following up with [employer] regarding side effects of metformin and requesting if she can take extended release metformin to see if that is better tolerated. Associated Problem(s): Anxiety and depression Denies any suicidal or homicidal ideation. Anxiety and depression have improved we will continue Wellbutrin 150 mg daily, patient to give us an update in about 1 month via Servoyantt if she would like to increase the dose to 300 mg. We will schedule her for follow-up in 3 months Addended by: JOAQUINA SCHMITZ on: 06/16/2023 08:32 AM Modules accepted: Level of Service documented in this encounter [facility] 06-15-2023 Evaluation + Plan note Associated Problem(s): Anxiety and depression Denies any suicidal or homicidal ideation. Anxiety and depression have improved we will continue Wellbutrin 150 mg daily, patient to give us an update in about 1 month via Servoyantt if she would like to increase the dose to 300 mg. We will schedule her for follow-up in 3 months [facility] 06-15-2023 History of Present illness Narrative Patient was identified by name and Date of . Images from the original note were not included. 06/15/2023 David Conti (: 1995) is a 27 y.o. female , Established patient, here for evaluation of the following chief complaint(s): Medication Check ASSESSMENT/PLAN: 1. Anxiety and depression Assessment & Plan: Denies any suicidal or homicidal ideation. Anxiety and depression have improved we will continue Wellbutrin 150 mg daily, patient to give us an update in about 1 month via Orexo if she would like to increase the dose to 300 mg. We will schedule her for follow-up in 3 months 2. PCOS (polycystic ovarian syndrome) Assessment & Plan: Recommend following up with [employer] regarding side effects of metformin and requesting if she can take extended release metformin to see if that is better tolerated. Follow up for 3 month [facility]. SUBJECTIVE/OBJECTIVE: HPI - David Conti (: 1995) is a 27 y.o. female , Established patient, here for the evaluation of the following chief complaint(s): Medication Check RACING WITH IN [place] WENT WELL, WAS SUPER BUSY. Did not get to do any sightseeing as they were busy at the track every day. Got back from [place] on June 05, 2023. Patient reports she went to [facility] for pcos- was started on metformin and reports that she has been having nausea and mild diarrhea with it. She has a follow-up with them tomorrow. Reports that the wellbutrin has helped anxiety and mood. Is doing better handling things. Is not. Feeling as overwhelmed, reports sleeping is getting back on schedule. Still doing amauri and yoga. Most days. Would like to keep the Wellbutrin at the current dose for now Prior to Admission medications Medication Sig Start Date End Date Taking? Authorizing Provider buPROPion XL (Wellbutrin XL) 150 MG 24 hr tablet Take 1 tablet (150 mg) by mouth every morning. Do not crush, chew, or split. 05/16/23 07/15/23 Yes JACINTO Roth CNP metFORMIN (Glucophage) 500 MG tablet Take 1 tablet by mouth in the morning and 1 tablet in the evening. Take with meals. 05/18/23 08/16/23 Yes Historical Provider, Acbolsvu-Mxt-Tq-FA (/IRON PO) Take 1 tablet by mouth in the morning. Yes Historical Provider, MV-Min-Fe Fum-FA-DHA ( 1 PO) Take by mouth. Yes Historical Provider, Review of Systems Constitutional: Negative for activity change, chills, fatigue and fever. HENT: Negative. Negative for congestion. Respiratory: Negative. Cardiovascular: Negative. Gastrointestinal: Positive for diarrhea and nausea. Negative for abdominal pain and vomiting. Genitourinary: Positive for menstrual problem (Irregular menses due to PCOS). Neurological: Negative. Vitals: 06/15/23 0735 BP: 112/69 Pulse: 94 Resp: 18 Temp: 37 C (98.6 F) TempSrc: Infrared SpO2: 98% Weight: 170 lb 3.2 oz (77.2 kg) Physical Exam Constitutional: Appearance: Normal appearance. HENT: Head: Normocephalic and atraumatic. Mouth/Throat: Mouth: Mucous membranes are moist. Pharynx: Oropharynx is clear. No posterior oropharyngeal erythema. Cardiovascular: Rate and Rhythm: Normal rate and regular rhythm. Pulses: Normal pulses. Heart sounds: Normal heart sounds. Pulmonary: Effort: Pulmonary effort is normal. Breath sounds: Normal breath sounds. Skin: General: Skin is warm and dry. Neurological: Mental Status: She is alert and oriented to person, place, and time. Psychiatric: Mood and Affect: Mood normal. Behavior: Behavior normal. Thought Content: Thought content normal. Judgment: Judgment normal. An electronic signature was used to authenticate this note. JACINTO Roth CNP 06/15/2023 9:35 AM documented in this encounter [facility] 06-15-2023 History of Present illness Narrative Patient was identified by name and Date of . Images from the original note were not included. 06/15/2023 David Conti (: 1995) is a 27 y.o. female , Established patient, here for evaluation of the following chief complaint(s): Medication Check ASSESSMENT/PLAN: 1. Anxiety and depression Assessment & Plan: Denies any suicidal or homicidal ideation. Anxiety and depression have improved we will continue Wellbutrin 150 mg daily, patient to give us an update in about 1 month via Orexo if she would like to increase the dose to 300 mg. We will schedule her for follow-up in 3 months 2. PCOS (polycystic ovarian syndrome) Assessment & Plan: Recommend following up with [employer] regarding side effects of metformin and requesting if she can take extended release metformin to see if that is better tolerated. Follow up for 3 month [facility]. SUBJECTIVE/OBJECTIVE: HPI - David Conti (: 1995) is a 27 y.o. female , Established patient, here for the evaluation of the following chief complaint(s): Medication Check RACING WITH IN [place] WENT WELL, WAS SUPER BUSY. Did not get to do any sightseeing as they were busy at the track every day. Got back from [place] on June 05, 2023. Patient reports she went to [facility] for pcos- was started on metformin and reports that she has been having nausea and mild diarrhea with it. She has a follow-up with them tomorrow. Reports that the wellbutrin has helped anxiety and mood. Is doing better handling things. Is not. Feeling as overwhelmed, reports sleeping is getting back on schedule. Still doing amauri and yoga. Most days. Would like to keep the Wellbutrin at the current dose for now Prior to Admission medications Medication Sig Start Date End Date Taking? Authorizing Provider buPROPion XL (Wellbutrin XL) 150 MG 24 hr tablet Take 1 tablet (150 mg) by mouth every morning. Do not crush, chew, or split. 05/16/23 07/15/23 Yes Joaquina Schmitz APRN - [employer] metFORMIN (Glucophage) 500 MG tablet Take 1 tablet by mouth in the morning and 1 tablet in the evening. Take with meals. 05/18/23 08/16/23 Yes Historical Provider, Svkrjovo-Rgg-Vx-FA (/IRON PO) Take 1 tablet by mouth in the morning. Yes Historical Provider, MV-Min-Fe Fum-FA-DHA ( 1 PO) Take by mouth. Yes Historical Provider, Review of Systems Constitutional: Negative for activity change, chills, fatigue and fever. HENT: Negative. Negative for congestion. Respiratory: Negative. Cardiovascular: Negative. Gastrointestinal: Positive for diarrhea and nausea. Negative for abdominal pain and vomiting. Genitourinary: Positive for menstrual problem (Irregular menses due to PCOS). Neurological: Negative. Vitals: 06/15/23 0735 BP: 112/69 Pulse: 94 Resp: 18 Temp: 37 C (98.6 F) TempSrc: Infrared SpO2: 98% Weight: 170 lb 3.2 oz (77.2 kg) Physical Exam Constitutional: Appearance: Normal appearance. HENT: Head: Normocephalic and atraumatic. Mouth/Throat: Mouth: Mucous membranes are moist. Pharynx: Oropharynx is clear. No posterior oropharyngeal erythema. Cardiovascular: Rate and Rhythm: Normal rate and regular rhythm. Pulses: Normal pulses. Heart sounds: Normal heart sounds. Pulmonary: Effort: Pulmonary effort is normal. Breath sounds: Normal breath sounds. Skin: General: Skin is warm and dry. Neurological: Mental Status: She is alert and oriented to person, place, and time. Psychiatric: Mood and Affect: Mood normal. Behavior: Behavior normal. Thought Content: Thought content normal. Judgment: Judgment normal. An electronic signature was used to authenticate this note. JACINTO Roth CNP 06/15/2023 9:35 AM documented in this encounter [facility] 06-15-2023 Instructions JACINTO Roth CNP - 06/15/2023 7:40 AM EST Asked about extended release metformin. Give update in about a month- if you want to increase dose of Wellbutrin or not documented in this encounter [facility] 06-15-2023 Instructions JACINTO Roth CNP - 06/15/2023 7:40 AM EST Asked about extended release metformin. Give update in about a month- if you want to increase dose of Wellbutrin or not documented in this encounter [facility] 06-15-2023 Note Addended by: JOAQUINA MORENO on: 06/16/2023 08:32 AM Modules accepted: Level of Service [facility] 06-15-2023 Note Addended by: JOAQUINA MORENO on: 06/16/2023 08:32 AM Modules accepted: Level of Service [facility] 05-18-2023 Note HNO ID: [id number] Author: NANCY ORDOÑEZ APRN.CNP Service: ? Author Type: Nurse Practitioner Type: Progress Notes Filed: 05/19/2023 13:09 Note Text: David Conti is a 27 year old female who presents for problem visit missed menses x 2 months and multiple negative home tests. HPI: Stopped OCP to attempt in December 2022. Last menses in February. Multiple home tests have all been negative. Has PCOS - recently noticing more facial hair although acne improving. 20 lb weight gain with Lexapro for anxiety. Changed to bupropion a few days ago by PCP. No previous pregnancies. Partner has 3 children. Amauri and yoga daily for exercise. Trying to eat healthy. OB History T0 L0 SAB0 IAB0 Ectopic0 Multiple0 Live Births0 Comment: 3 stepchildren [employer] History LMP: 04/26/2023, Having periods Age at Menarche: Age at First : Age at Menopause: [employer] History Comments: Sexual Activity: Yes; Male; sexually active with Contraception: Pill PAST MEDICAL HISTORY Diagnosis Date Exertional asthma 07/28/2011 Generalized anxiety disorder Medial meniscus tear 07/28/2011 PCOS (polycystic ovarian syndrome) 2021 Unspecified otitis media Recurrent otitis Vocal cord dysfunction 09/07/2011 PAST SURGICAL HISTORY Procedure Laterality Date ANKLE ARTHROSCOPY Right 10/28/15 Dr. Fu FAMILY HISTORY Problem Relation Age of Onset other (Other [Other]) Paternal Grandfather leukemia Cancer Maternal Grandmother breast Asthma Sister Social History Tobacco Use Smoking status: Never Smokeless tobacco: Never Vaping Use Vaping Use: Never used Substance Use Topics Alcohol use: Yes Drug use: No Current Outpatient Medications Medication Sig buPROPion XL (WELLBUTRIN XL) 150 mg 24 hr tablet Take 150 mg by mouth every morning. PNV/iron/folic acid ( [id number]-[id number]-FJ ORAL) Take 1 tablet by mouth once daily. albuterol HFA (PROVENTIL HFA, VENTOLIN HFA) 90 mcg/actuation inhaler Inhale 2 Puffs as instructed every 4 hours as needed. Drospirenone-Ethinyl Estradiol (ANTONY, 28,) 3-0.03 mg per tablet Take 1 tablet by mouth once daily. Take one active pill continuously x 3 months- discard placebo pills (Patient not taking: Reported on 05/18/2023) No current facility-administered medications for this visit. Allergies As of Date: 05/18/2023 Allergen Noted Reaction GRASS POLLEN 08/23/2012 Unknown SEASONAL ALLERGIES 08/23/2012 Unknown TREES 08/23/2012 Unknown Fully Assessed 05/18/2023 REVIEW OF SYSTEMS Abdomen: No bloating, early satiety, indigestion, or increased flatulence. No abdominal pain, nausea, vomiting, diarrhea, or constipation. Bladder: No dysuria, gross hematuria, urinary frequency, urinary urgency, or incontinence. Allergies and current medication updated:Yes EXAM: BP 100/72 Wt 166 lb (75.3kg) LMP 04/26/2023 GENERAL: pleasant, female in no apparent distress CHEST: Normal inspiratory effort NEURO: alert and oriented x3,exam grossly non-focal ASSESSMENT/PLAN: 1. Irregular menses - ICD9: 626.4, ICD10: N92.6 (primary diagnosis) - HCG QUAL UR B/O - negative - METFORMIN 500 MG TABLET - HGB A1C - INSULIN ASSAY BLOOD - GLUCOSE FASTING BLD 2. PCOS (polycystic ovarian syndrome) - ICD9: 256.4, ICD10: E28.2 - METFORMIN 500 MG TABLET Agreeable to begin Metformin 500 mg with dinner daily x 1 week. If tolerating will increase to 2 tablets with dinner daily. We discussed common side effects of this medication including nausea, changes in bowel habits, abdominal discomfort, and flatulence. Discussed taking it with food and complication of lactic acidosis and signs/symptoms and medication handout given. Further instructed that if she experiences malaise, muscle aches, difficulty breathing, or severe abdominal pain to seek immediate medical attention. - HGB A1C - INSULIN ASSAY BLOOD - GLUCOSE FASTING BLD - - discussed with pt - review of PCOS with signs and symptoms. Increased risk of DMT2, CAD, infertility. Treatment discussed: weight loss to restore ovulatory cycles and reduce androgen concentrations, exercise, cyclic medroxyprogesterone to induce menses. Metformin discussed - explained that it is not considered a first-line treatment as it does not change outcomes but that it will decrease HgbA1c although weight loss will do the same. Discussed that she may need medication to induce ovulation if she does not become with lifestyle changes and weight loss. - Eat primarily whole foods. Limit carbs, especially processed carbs. - Do not drink your calories - 30 grams of protein for your first meal of the day decreases your hunger during the day by up to 40 % Premier Protein or generic 30 gm protein 1 gm sugar - Walk for 15 minutes immediately a meal. 3. Elevated LDL cholesterol level - ICD9: 272.0, ICD10: E78.00 - benefits of weight loss discussed Fol (more content not included)... [facility] 05-16-2023 Evaluation + Plan note Associated Problem(s): Weight gain Will have her follow up with her agriculture laboratory technician, suspect gain posssilby from pcos. Continue exercise, healthy eating and portion control. Will stop lexapro (possible weight gain) and switch to wellbutrin. [facility] [place] 05-16-2023 Miscellaneous Notes Associated Problem(s): Weight gain Will have her follow up with her agriculture laboratory technician, suspect gain posssilby from pcos. Continue exercise, healthy eating and portion control. Will stop lexapro (possible weight gain) and switch to wellbutrin. Associated Problem(s): Anxiety and depression Denies si/hi. Anxiety and depression symptoms better but still is having trouble focusing. Will taper discontinue lexapro and start wellbutrin. Follow up in about 1 month documented in this encounter [facility] 05-16-2023 Miscellaneous Notes Associated Problem(s): Weight gain Will have her follow up with her agriculture laboratory technician, suspect gain posssilby from pcos. Continue exercise, healthy eating and portion control. Will stop lexapro (possible weight gain) and switch to wellbutrin. Associated Problem(s): Anxiety and depression Denies si/hi. Anxiety and depression symptoms better but still is having trouble focusing. Will taper discontinue lexapro and start wellbutrin. Follow up in about 1 month Addended by: JOAQUINA SCHMITZ on: 05/17/2023 10:57 AM Modules accepted: Level of Service documented in this encounter [facility] 05-16-2023 Evaluation + Plan note Associated Problem(s): Anxiety and depression Denies si/hi. Anxiety and depression symptoms better but still is having trouble focusing. Will taper discontinue lexapro and start wellbutrin. Follow up in about 1 month [facility] 05-16-2023 History of Present illness Narrative Patient was identified by name and Date of . Images from the original note were not included. 05/16/2023 David Conti (: 1995) is a 27 y.o. female , Established patient, here for evaluation of the following chief complaint(s): Medication Check and Weight Gain ASSESSMENT/PLAN: 1. Anxiety and depression Assessment & Plan: Denies si/hi. Anxiety and depression symptoms better but still is having trouble focusing. Will taper discontinue lexapro and start wellbutrin. Follow up in about 1 month Orders: - buPROPion XL (Wellbutrin XL) 150 MG 24 hr tablet; Take 1 tablet (150 mg) by mouth every morning. Do not crush, chew, or split., Starting 05/16/2023, Until Tue07/15/2023, Normal 2. Weight gain Assessment & Plan: Will have her follow up with her agriculture laboratory technician, suspect gain posssilby from pcos. Continue exercise, healthy eating and portion control. Will stop lexapro (possible weight gain) and switch to wellbutrin. Follow up in about 1 month (around 06/16/2023). SUBJECTIVE/OBJECTIVE: HPI - David Conti (: 1995) is a 27 y.o. female , Established patient, here for the evaluation of the following chief complaint(s): Medication Check and Weight Gain Stopped nicotine and stopped etoh since we last met. . Has gained some weight. She thinks it may be from going off of her control medication, Is working out with online [employer] classes daily, watching what she is eating. Is doing well as far as eating and exercising. She also is doing yoga. Stopped control. Has not had period since dec and February and has been testing. Is trying to get . Will be following up with her agriculture laboratory technician. Reports anxiety is better, but is not able to focus well still. Denies si/hi. Her and her are getting ready to go to [place] for car racing for 11 days. Her races cars. States she is looking forward to going. Prior to Admission medications Medication Sig Start Date End Date Taking? Authorizing Provider escitalopram (Lexapro) 20 MG tablet Take 1 tablet (20 mg) by mouth daily. 04/08/23 07/07/23 Yes JACINTO Roth CNP MV-Min-Fe Fum-FA-DHA ( 1 PO) Take by mouth. Yes Historical Provider, Review of Systems Constitutional: Negative. HENT: Negative. Respiratory: Negative. Cardiovascular: Negative. Gastrointestinal: Negative. Genitourinary: Negative. Musculoskeletal: Negative. Neurological: Negative. Psychiatric/Behavioral: Positive for decreased concentration. Negative for self-injury, sleep disturbance and suicidal ideas. The patient is nervous/anxious. Vitals: 05/16/23 1346 BP: 133/89 Pulse: 98 Resp: 18 Temp: 36.7 C (98.1 F) TempSrc: Infrared SpO2: 97% Weight: 164 lb (74.4 kg) Physical Exam Constitutional: General: She is not in acute distress. Appearance: Normal appearance. She is not ill-appearing. HENT: Head: Normocephalic and atraumatic. Right Ear: Tympanic membrane normal. Left Ear: Tympanic membrane normal. Nose: No congestion or rhinorrhea. Mouth/Throat: Mouth: Mucous membranes are moist. Pharynx: Oropharynx is clear. No posterior oropharyngeal erythema. Eyes: Conjunctiva/sclera: Conjunctivae normal. Cardiovascular: Rate and Rhythm: Normal rate and regular rhythm. Pulmonary: Effort: Pulmonary effort is normal. Breath sounds: Normal breath sounds. Lymphadenopathy: Cervical: No cervical adenopathy. Skin: General: Skin is warm and dry. Neurological: Mental Status: She is alert and oriented to person, place, and time. Psychiatric: Mood and Affect: Mood normal. Behavior: Behavior normal. Thought Content: Thought content normal. Judgment: Judgment normal. An electronic signature was used to authenticate this note. JACINTO Roth CNP 05/16/2023 4:24 PM documented in this encounter [facility] 05-16-2023 History of Present illness Narrative Patient was identified by name and Date of . Images from the original note were not included. 05/16/2023 David Conti (: 1995) is a 27 y.o. female , Established patient, here for evaluation of the following chief complaint(s): Medication Check and Weight Gain ASSESSMENT/PLAN: 1. Anxiety and depression Assessment & Plan: Denies si/hi. Anxiety and depression symptoms better but still is having trouble focusing. Will taper discontinue lexapro and start wellbutrin. Follow up in about 1 month Orders: - buPROPion XL (Wellbutrin XL) 150 MG 24 hr tablet; Take 1 tablet (150 mg) by mouth every morning. Do not crush, chew, or split., Starting 05/16/2023, Until Tue07/15/2023, Normal 2. Weight gain Assessment & Plan: Will have her follow up with her agriculture laboratory technician, suspect gain posssilby from pcos. Continue exercise, healthy eating and portion control. Will stop lexapro (possible weight gain) and switch to wellbutrin. Follow up in about 1 month (around 06/16/2023). SUBJECTIVE/OBJECTIVE: HPI - David Conti (: 1995) is a 27 y.o. female , Established patient, here for the evaluation of the following chief complaint(s): Medication Check and Weight Gain Stopped nicotine and stopped etoh since we last met. . Has gained some weight. She thinks it may be from going off of her control medication, Is working out with online [employer] classes daily, watching what she is eating. Is doing well as far as eating and exercising. She also is doing yoga. Stopped control. Has not had period since dec and February and has been testing. Is trying to get . Will be following up with her agriculture laboratory technician. Reports anxiety is better, but is not able to focus well still. Denies si/hi. Her and her are getting ready to go to [place] for car racing for 11 days. Her races cars. States she is looking forward to going. Prior to Admission medications Medication Sig Start Date End Date Taking? Authorizing Provider escitalopram (Lexapro) 20 MG tablet Take 1 tablet (20 mg) by mouth daily. 04/08/23 07/07/23 Yes Joaquina Schmitz, JACINTO - SANDIP MV-Min-Fe Fum-FA-DHA ( 1 PO) Take by mouth. Yes Historical Provider, Review of Systems Constitutional: Negative. HENT: Negative. Respiratory: Negative. Cardiovascular: Negative. Gastrointestinal: Negative. Genitourinary: Negative. Musculoskeletal: Negative. Neurological: Negative. Psychiatric/Behavioral: Positive for decreased concentration. Negative for self-injury, sleep disturbance and suicidal ideas. The patient is nervous/anxious. Vitals: 05/16/23 1346 BP: 133/89 Pulse: 98 Resp: 18 Temp: 36.7 C (98.1 F) TempSrc: Infrared SpO2: 97% Weight: 164 lb (74.4 kg) Physical Exam Constitutional: General: She is not in acute distress. Appearance: Normal appearance. She is not ill-appearing. HENT: Head: Normocephalic and atraumatic. Right Ear: Tympanic membrane normal. Left Ear: Tympanic membrane normal. Nose: No congestion or rhinorrhea. Mouth/Throat: Mouth: Mucous membranes are moist. Pharynx: Oropharynx is clear. No posterior oropharyngeal erythema. Eyes: Conjunctiva/sclera: Conjunctivae normal. Cardiovascular: Rate and Rhythm: Normal rate and regular rhythm. Pulmonary: Effort: Pulmonary effort is normal. Breath sounds: Normal breath sounds. Lymphadenopathy: Cervical: No cervical adenopathy. Skin: General: Skin is warm and dry. Neurological: Mental Status: She is alert and oriented to person, place, and time. Psychiatric: Mood and Affect: Mood normal. Behavior: Behavior normal. Thought Content: Thought content normal. Judgment: Judgment normal. An electronic signature was used to authenticate this note. JACINTO Roth CNP 05/16/2023 4:24 PM documented in this encounter [facility] 05-16-2023 Instructions JACINTO Roth CNP - 05/16/2023 1:40 PM EST Start wellbutrin and decrease lexapro to 10 mg daily x 7 days, then stop the lexapro. Check Headspace vangie for meditation documented in this encounter [facility] 05-16-2023 Instructions JACINTO Roth CNP - 05/16/2023 1:40 PM EST Start wellbutrin and decrease lexapro to 10 mg daily x 7 days, then stop the lexapro. Check Headspace vangie for meditation documented in this encounter [facility] 05-16-2023 Note Addended by: JOAQUINA MORENO on: 05/17/2023 10:57 AM Modules accepted: Level of Service [facility] 05-16-2023 Note Addended by: JOAQUINA MORENO on: 05/17/2023 10:57 AM Modules accepted: Level of Service [facility] 03-23-2023 Evaluation + Plan note Associated Problem(s): Anxiety and depression Denies any suicidal or homicidal ideation. Reports improved symptoms. We will continue on Lexapro 10 mg daily she is to provide an update through [employer] in approximately 4 weeks. Consider up titration if needed at that point. [facility] 03-23-2023 Miscellaneous Notes Associated Problem(s): Anxiety and depression Denies any suicidal or homicidal ideation. Reports improved symptoms. We will continue on Lexapro 10 mg daily she is to provide an update through [employer] in approximately 4 weeks. Consider up titration if needed at that point. documented in this encounter [facility] 03-23-2023 History of Present illness Narrative Patient was identified by name and Date of . Health Main: Lipid-pended HIV/Hep C-declined Covid-declined PHQ-completed Pap-[facility] (will scan in) Tdap-declined Influenza-declined Images from the original note were not included. 03/23/2023 David Conti (: 1995) is a 27 y.o. female , Established patient, here for evaluation of the following chief complaint(s): Follow-up and Health Maintenance (Lipid-pended/HIV/Hep C-declined/Covid-declined/PHQ-comp leted/Pap-[facility] (will scan in)/Tdap-declined/Influenza-declin ed/ ) ASSESSMENT/PLAN: 1. Annual physical exam - Comprehensive metabolic panel - CBC - Lipid panel 2. Screening for deficiency anemia - CBC 3. Screening for cholesterol level - Lipid panel 4. Anxiety and depression Assessment & Plan: Denies any suicidal or homicidal ideation. Reports improved symptoms. We will continue on Lexapro 10 mg daily she is to provide an update through [employer] in approximately 4 weeks. Consider up titration if needed at that point. Follow up in about 3 months (around 06/23/2023). SUBJECTIVE/OBJECTIVE: HPI - David Conti (: 1995) is a 27 y.o. female , Established patient, here for the evaluation of the following chief complaint(s): Follow-up and Health Maintenance (Lipid-pended/HIV/Hep C-declined/Covid-declined/PHQ-comp leted/Pap-[facility] (will scan in)/Tdap-declined/Influenza-declin ed/ ) Recently newly established patient to us about 2 weeks ago who had presented for an acute complaint of anxiety and depression. She was started on Lexapro 10 mg at that time and recommended to get set up with a counselor. No other acute complaints today. Anxiety/dep- feels like medication is helping some. Is able to think clearer. Is processing thoughts better. States that she has not broke down and cried like she was before. Denies any suicidal or homicidal ideation. She has yet to set up with a counselor. Has [employer] which she follows for women's health. Prior to Admission medications Medication Sig Start Date End Date Taking? Authorizing Provider escitalopram (Lexapro) 10 MG tablet Take 1 tablet (10 mg) by mouth daily. 03/08/23 06/06/23 Yes JACINTO Roth CNP MV-Min-Fe Fum-FA-DHA ( 1 PO) Take by mouth. Yes Historical Provider, Review of Systems Constitutional: Negative. HENT: Negative. Respiratory: Negative. Cardiovascular: Negative. Gastrointestinal: Negative. Genitourinary: Negative. Musculoskeletal: Negative. Neurological: Negative. Psychiatric/Behavioral: Positive for decreased concentration and sleep disturbance (still not sleeping well.). Negative for self-injury and suicidal ideas. The patient is nervous/anxious. Vitals: 03/23/23 0929 BP: 116/77 Pulse: 98 Resp: 18 Temp: 36.4 C (97.6 F) TempSrc: Infrared SpO2: 99% Weight: 151 lb (68.5 kg) Physical Exam Constitutional: General: She is not in acute distress. Appearance: Normal appearance. She is not ill-appearing. HENT: Head: Normocephalic and atraumatic. Right Ear: Tympanic membrane normal. Left Ear: Tympanic membrane normal. Mouth/Throat: Mouth: Mucous membranes are moist. Pharynx: Oropharynx is clear. No posterior oropharyngeal erythema. Eyes: Conjunctiva/sclera: Conjunctivae normal. Cardiovascular: Rate and Rhythm: Normal rate and regular rhythm. Pulses: Normal pulses. Heart sounds: Normal heart sounds. Musculoskeletal: Right lower leg: No edema. Left lower leg: No edema. Skin: General: Skin is warm and dry. Neurological: Mental Status: She is alert and oriented to person, place, and time. Psychiatric: Mood and Affect: Mood normal. Behavior: Behavior normal. Thought Content: Thought content normal. Judgment: Judgment normal. An electronic signature was used to authenticate this note. JACINTO Roth CNP 03/23/2023 1:22 PM documented in this encounter [facility] 03-23-2023 Instructions JACINTO Roth CNP - 03/23/2023 9:40 AM EST Melatonin 1- 5 mg nightly to help with sleep. Send update via mychart to provider in 1 month on how you are doing on the lexapro 10 mg daily. documented in this encounter [facility] 11-29-2022 Note HNO ID: [id number] Author: Divya Ntaion MD Service: ? Author Type: Physician Type: Progress Notes Filed: 11/29/2022 3:09 PM Note Text: [employer] offered: Patient declines. David is a 27 year old who presents for an annual gynecologic exam without complaints. Does have irregular bleeding with pills. 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 Thinking about kids. Menses: cycles every 28 days and 5-8 days but does have a lot of irregular bleeding for 3-4 days per month- not as heavy. Does not miss pills or take them late. Contraception: combined hormonal contraceptives HPV vaccine: Yes Last Pap: 10/28/2021 normal HPV: N/A History of abnormal pap: No Last mammogram: never Sexually active: Yes History of STDS: None Patient concerns for STD exposure: No. Pain with intercourse: No Postcoital bleeding: No Exercise:active walking Diet: balanced OB History T0 L0 SAB0 IAB0 Ectopic0 Multiple0 Live Births0 Comment: 3 stepchildren [employer] History LMP: 11/30/2021, Having periods Age at Menarche: Age at First : Age at Menopause: [employer] History Comments: Sexual Activity: Yes; Male; sexually active with Contraception: Pill PAST MEDICAL HISTORY Diagnosis Date Exertional asthma 07/28/2011 Medial meniscus tear 07/28/2011 Unspecified otitis media Recurrent otitis Vocal cord dysfunction 09/07/2011 PAST SURGICAL HISTORY Procedure Laterality Date ANKLE ARTHROSCOPY Right 10/28/15 Dr. Fu FAMILY HISTORY Problem Relation Age of Onset other (Other [Other]) Paternal Grandfather leukemia Cancer Maternal Grandmother breast Asthma Sister SOCIAL HISTORY Social History Tobacco Use Smoking status: Never Smokeless tobacco: Never Vaping Use Vaping Use: Never used Substance Use Topics Alcohol use: Yes Drug use: No REVIEW OF SYSTEMS Abdomen: No abdominal pain, nausea, vomiting, diarrhea, or constipation. No bloating, early satiety, indigestion, or increased flatulence. Bladder: No dysuria, gross hematuria, urinary frequency, urinary urgency, or incontinence. Breast: No breast lumps, nipple d/c, overlying skin changes, redness or skin retraction. Allergies and current medication updated:Yes EXAM: BP 118/68 Ht 5' 4 (1.63m) Wt 149 lb (67.6kg) LMP 11/15/2022 BMI 25.56 kg/(m2). GENERAL: pleasant, female in no apparent distress HEENT: Normocephalic, atraumatic, mucus membranes moist, and no lesions NECK: Supple, full range of motion, no adenopathy, and thyroid normal DERMATOLOGY: Normal, without lesions, non-icteric, and non-hirsute BREAST: soft, non-tender, symmetric, no dominant mass, normal nipple-areolar complex, no lymphadenopathy, and no nipple discharge ABDOMEN: soft, non-tender, and no masses PELVIC: external genitalia normal, normal Bartholin's glands, urethra, [place]'s glands, no vulvar lesions, no cervical lesions, good vaginal support, physiologic discharge present, normal appearing perineal body and perianal region BIMANUAL: uterus normal size, shape and consistency, no adnexal masses, and non-tender RECTOVAGINAL: deferred. NEURO: alert and oriented x3,exam grossly non-focal EXTREMITIES: normal ASSESSMENT/PLAN: 1) Health maintenance: Pap/HPV up to date. Mammogram starting age 40. Nutrition, exercise and routine health maintenance exams reviewed. Calcium/Vitamin D supplementation information provided. 2) Contraception: combined hormonal contraceptives. Contraceptive options reviewed and information provided. Changed to antony 3) STD screening: Declined STD check. 4) Follow up one year or sooner as needed Divya Melendez MD [facility] 11-29-2022 History of Present illness Narrative [employer] offered: Patient declines. David is a 27 year old who presents for an annual gynecologic exam without complaints. Does have irregular bleeding with pills. 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 Thinking about kids. Menses: cycles every 28 days and 5-8 days but does have a lot of irregular bleeding for 3-4 days per month- not as heavy. Does not miss pills or take them late. Contraception: combined hormonal contraceptives HPV vaccine: Yes Last Pap: 10/28/2021 normal HPV: N/A History of abnormal pap: No Last mammogram: never Sexually active: Yes History of STDS: None Patient concerns for STD exposure: No. Pain with intercourse: No Postcoital bleeding: No Exercise:active walking Diet: balanced OB History T0 L0 SAB0 IAB0 Ectopic0 Multiple0 Live Births0 Comment: 3 stepchildren [employer] History LMP: 11/30/2021, Having periods Age at Menarche: Age at First : Age at Menopause: [employer] History Comments: Sexual Activity: Yes; Male; sexually active with Contraception: Pill PAST MEDICAL HISTORY Diagnosis Date Exertional asthma 07/28/2011 Medial meniscus tear 07/28/2011 Unspecified otitis media Recurrent otitis Vocal cord dysfunction 09/07/2011 PAST SURGICAL HISTORY Procedure Laterality Date ANKLE ARTHROSCOPY Right 10/28/15 Dr. Fu FAMILY HISTORY Problem Relation Age of Onset other (Other [Other]) Paternal Grandfather leukemia Cancer Maternal Grandmother breast Asthma Sister SOCIAL HISTORY Social History Tobacco Use Smoking status: Never Smokeless tobacco: Never Vaping Use Vaping Use: Never used Substance Use Topics Alcohol use: Yes Drug use: No REVIEW OF SYSTEMS Abdomen: No abdominal pain, nausea, vomiting, diarrhea, or constipation. No bloating, early satiety, indigestion, or increased flatulence. Bladder: No dysuria, gross hematuria, urinary frequency, urinary urgency, or incontinence. Breast: No breast lumps, nipple d/c, overlying skin changes, redness or skin retraction. Allergies and current medication updated:Yes EXAM: BP 118/68 Ht 5' 4 (1.63m) Wt 149 lb (67.6kg) LMP 11/15/2022 BMI 25.56 kg/(m^2). GENERAL: pleasant, female in no apparent distress HEENT: Normocephalic, atraumatic, mucus membranes moist, and no lesions NECK: Supple, full range of motion, no adenopathy, and thyroid normal DERMATOLOGY: Normal, without lesions, non-icteric, and non-hirsute BREAST: soft, non-tender, symmetric, no dominant mass, normal nipple-areolar complex, no lymphadenopathy, and no nipple discharge ABDOMEN: soft, non-tender, and no masses PELVIC: external genitalia normal, normal Bartholin's glands, urethra, [place]'s glands, no vulvar lesions, no cervical lesions, good vaginal support, physiologic discharge present, normal appearing perineal body and perianal region BIMANUAL: uterus normal size, shape and consistency, no adnexal masses, and non-tender RECTOVAGINAL: deferred. NEURO: alert and oriented x3,exam grossly non-focal EXTREMITIES: normal ASSESSMENT/PLAN: 1) Health maintenance: Pap/HPV up to date. Mammogram starting age 40. Nutrition, exercise and routine health maintenance exams reviewed. Calcium/Vitamin D supplementation information provided. 2) Contraception: combined hormonal contraceptives. Contraceptive options reviewed and information provided. Changed to antony 3) STD screening: Declined STD check. 4) Follow up one year or sooner as needed Divya Melendez MD documented in this encounter [facility] 10-06-2022 Miscellaneous Notes Patient called in requesting refill today. Annual scheduled with DM 11/29/22. No need to call back. Requested Prescriptions Pending Prescriptions Disp Refills Norethindrone Acet-Ethinyl Est (,) 1-20 mg-mcg per tablet 28 tablet 2 Sig: TAKE 1 TABLET BY MOUTH DAILY Dennise Yan RN documented in this encounter [facility] 07-01-2022 Miscellaneous Notes Addended by: RAMA FUNG on: 07/01/2022 03:14 PM Modules accepted: Orders Addended by: DAI KATZ LPN on: 07/01/2022 02:59 PM Modules accepted: Orders Please see pended order below in DM absence. Pt is needing this today and it went to the wrong pharmacy. Call only if problems. Dai Katz LPN ordered Patient needing Rx before KJ returns on Tuesday. Rosmery Barlow RN RX pending. Patient last seen for annual 10/20/21 documented in this encounter [facility] 05-20-2022 Miscellaneous Notes Left detailed message on patient's voicemail Please let her know that I apologize. I thought the order was placed. Sorry for her inconvenience. Tomorrow morning would be fine for her to get her blood drawn. Niharika Lee MD Patient was to have her 21 day progesterone drawn today. Patient went to the lab at 7 AM and there was no order. Patient voiced her frustration and lack of communication. If patient chooses, can she have it drawn tomorrow? Otherwise she's aware that she will have to wait until her next cycle. Order pending. Isaura Mcneill RN documented in this encounter [facility] 04-30-2022 Miscellaneous Notes Please call & explain that day 21 would be May 20 and today is day 1. Thanks! Niharika Lee MD documented in this encounter [facility] 04-22-2022 Miscellaneous Notes Menses can take 7-10 days to start after finishing provera. Niharika Lee MD Rx provera given Niharika Lee MD documented in this encounter [facility] 04-01-2022 Miscellaneous Notes Left message for patient to call office or check [employer] message. Dennise Yan RN Images from the original note were not included. Left message for patient to call office. MD Dennise Dow RN, RN Please call patient & make sure she is taking a folic acid supplement as desires . Thanks! KJ documented in this encounter [facility] 03-30-2022 History of Present illness Narrative David Conti is a 26 year old female who presents for problem visit (virtually). HPI: Patient has questions about her positive test and missed menses. Also she would like to get and has questions about that as well. OB History T0 L0 SAB0 IAB0 Ectopic0 Multiple0 Live Births0 Comment: 3 stepchildren [employer] History LMP: 11/30/2021, Having periods Age at Menarche: Age at First : Age at Menopause: [employer] History Comments: Sexual Activity: Yes; Male; sexually active with Contraception: Pill PAST MEDICAL HISTORY Diagnosis Date Exertional asthma 07/28/2011 Medial meniscus tear 07/28/2011 Unspecified otitis media Recurrent otitis Vocal cord dysfunction 09/07/2011 PAST SURGICAL HISTORY Procedure Laterality Date ANKLE ARTHROSCOPY Right 10/28/15 Dr. Fu FAMILY HISTORY Problem Relation Age of Onset other (Other [Other]) Paternal Grandfather leukemia Cancer Maternal Grandmother breast Asthma Sister Social History Tobacco Use Smoking status: Never Smokeless tobacco: Never Vaping Use Vaping Use: Never used Substance Use Topics Alcohol use: Yes Drug use: No Current Outpatient Medications Medication Sig Norethindrone Acet-Ethinyl Est (05/14, ,) 1-20 mg-mcg per tablet TAKE 1 TABLET BY MOUTH DAILY albuterol HFA (PROVENTIL HFA, VENTOLIN HFA) 90 mcg/actuation inhaler Inhale 2 Puffs as instructed every 4 hours as needed. No current facility-administered medications for this visit. Allergies As of Date: 03/30/2022 Allergen Noted Reaction GRASS POLLEN 08/23/2012 Unknown SEASONAL ALLERGIES 08/23/2012 Unknown TREES 08/23/2012 Unknown Fully Assessed 12/02/2021 Allergies and current medication updated:Yes EXAM: LMP 11/30/2021 GENERAL: pleasant, female in no apparent distress ASSESSMENT AND PLAN: 26yo female with PCOS & missed menses Discussed likely false positive home test vs blighted ovum. Serum hcg confirms patient is no . Missed menses - discussed R/B/A and will proceed with provera to induce menses if no menses by April 13. PCOS - patient reports that home OPK don't show ovulation. Will check day 21 progesterone. All questions answered & patient agrees with plan. I spent a total of 25 minutes on the date of the service which included preparing to see the patient, [id number] patient care, completing clinical documentation, and counseling and educating the patient/family/caregiver. Niharika Lee MD documented in this encounter [facility] 03-23-2022 Miscellaneous Notes Patient notified and voiced understanding of below. Virtual visit appointment scheduled per request. Rosmery Barlow RN Based on the dates of her tests I suspect that she had a false home test but can't exclude a blighted ovum. If she misses another menses I could give her provera to induce menses. If she'd like to discuss things more please offer her a virtual or in person visit. Has she stopped taking the ocps? Please remind her to take a folic acid supplement daily when trying to conceive. Niharika Lee MD LMP 02/17/22 She had positive UPT 03/13 at home and then negative hcg quant on 03/19. Concerned because she still hasn't started menses. Not having any symptoms like she is going to start soon. She has been having regular menses in October, November and December. She was previously diagnosed with PCOS earlier this year and is aware that can cause irregular menses. She has been trying to conceive x2 months. Asking what else she can do to help regulate menses to continue to try to conceive. Aware KJ back in office tomorrow. Please advise. Dennise Yan RN documented in this encounter [facility] 03-19-2022 Miscellaneous Notes Patient notified and appt made for tomorrow at her request. Leave phone note open for quant result Hcg quant ordered Niharkia Lee MD Pt calling and stated that she got a positive test on 02/10/22. Pt has her PNOB and NOB appointment scheduled. She took another test this morning and and received a negative test. Pt stating she also go a negative results yesterday as well. Pt wanting to know if she can have a serum quant to verify. LMP 02/17/22. Please advise. Dai Katz LPN documented in this encounter [facility] 10-30-2021 Miscellaneous Notes See phone note. Dennise Yan RN This is KJ patient- I read ultrasound. Please forward to her. documented in this encounter [facility] 10-20-2021 History of Present illness Narrative David is a 26 year old who presents for an annual gynecologic exam. Menses are typically regular. She had some breakthrough bleeding so she stopped the ocps last month. The episode of irregular bleeding was heavy. She then restarted the ocps. Patient has changed jobs (last year) & got in June. She takes her ocps regularly. Patient states home hcg tests are negative. Menses:regular other than above Contraception: combined hormonal contraceptives HPV vaccine: Yes Last Pap: 04/13/2019 normal HPV: N/A History of abnormal pap: No Last mammogram: never OB History No obstetric history on file. [employer] History LMP: 09/14/2021, Having periods Age at Menarche: Age at First : Age at Menopause: [employer] History Comments: Sexual Activity: Yes; Male; sexually active with Contraception: Pill PAST MEDICAL HISTORY Diagnosis Date Exertional asthma 07/28/2011 Medial meniscus tear 07/28/2011 Unspecified otitis media Recurrent otitis Vocal cord dysfunction 09/07/2011 PAST SURGICAL HISTORY Procedure Laterality Date ANKLE ARTHROSCOPY Right 10/28/15 Dr. Fu FAMILY HISTORY Problem Relation Age of Onset other (Other [Other]) Paternal Grandfather leukemia Cancer Maternal Grandmother breast Asthma Sister SOCIAL HISTORY Social History Tobacco Use Smoking status: Never Smoker Smokeless tobacco: Never Used Vaping Use Vaping Use: Never used Substance Use Topics Alcohol use: Yes Drug use: No REVIEW OF SYSTEMS Abdomen: No abdominal pain, nausea, vomiting, diarrhea, or constipation. No bloating, early satiety, indigestion, or increased flatulence. Bladder: No dysuria, gross hematuria, urinary frequency, urinary urgency, or incontinence. Breast: No breast lumps, nipple d/c, overlying skin changes, redness or skin retraction. Allergies and current medication updated:Yes EXAM: BP 104/64 Ht 5' 4.173 (1.63m) Wt 149 lb (67.6kg) LMP 09/14/2021 BMI 25.44 kg/(m^2). GENERAL: pleasant, female in no apparent distress BREAST: soft, non-tender, symmetric, no dominant mass, normal nipple-areolar complex, no lymphadenopathy and no nipple discharge CHEST: Normal inspiratory effort ABDOMEN: soft, non-tender and no masses PELVIC: external genitalia normal, normal Bartholin's glands, urethra, [place]'s glands, no vulvar lesions, no cervical lesions, good vaginal support, physiologic discharge present, normal appearing perineal body and perianal region BIMANUAL: uterus normal size, shape and consistency, no adnexal masses and non-tender RECTOVAGINAL: deferred. NEURO: alert and oriented x3,exam grossly non-focal EXTREMITIES: normal ASSESSMENT/PLAN: 1) Health maintenance: Pap done with HPV. Nutrition, exercise and routine health maintenance exams reviewed. 2) Contraception: combined hormonal contraceptives. Contraceptive options reviewed and information provided. 3) STD screening: Declined STD check. 4) Follow up one year or sooner as needed 5) Breakthrough bleeding - likely from stress & then stopping ocps. Check labs & pelvic US. Niharika Lee MD documented in this encounter [facility] 11-27-2012 History of Past i llness Narrative Problem Noted Date Resolved Date Posterior tibial tendonitis 11/27/201210/24 Achilles tendinitis 11/27/2012 11/12/2014 documented as of this encounter (statuses as of 10/20/2021) [facility] History of Past illness Narrative* Problem Noted Date Resolved Date Posterior tibial tendonitis 11/27/201210/24 Achilles tendinitis 11/27/2012 11/12/2014 documented as of this encounter (statuses as of 10/27/2021) [facility] History of Past illness Narrative* Problem Noted Date Resolved Date Posterior tibial tendonitis 11/27/201210/24 Achilles tendinitis 11/27/2012 11/12/2014 documented as of this encounter (statuses as of 10/30/2021) [facility] History of Past illness Narrative* Problem Noted Date Resolved Date Posterior tibial tendonitis 11/27/201210/24 Achilles tendinitis 11/27/2012 11/12/2014 documented as of this encounter (statuses as of 03/19/2022) [facility] History of Past illness Narrative* Problem Noted Date Resolved Date Posterior tibial tendonitis 11/27/201210/24 Achilles tendinitis 11/27/2012 11/12/2014 documented as of this encounter (statuses as of 03/23/2022) [facility] History of Past illness Narrative* Problem Noted Date Resolved Date Posterior tibial tendonitis 11/27/201210/24 Achilles tendinitis 11/27/2012 11/12/2014 documented as of this encounter (statuses as of 03/30/2022) [facility] History of Past illness Narrative* Problem Noted Date Resolved Date Posterior tibial tendonitis 11/27/201210/24 Achilles tendinitis 11/27/2012 11/12/2014 documented as of this encounter (statuses as of 04/02/2022) [facility] History of Past illness Narrative* Problem Noted Date Resolved Date Posterior tibial tendonitis 11/27/201210/24 Achilles tendinitis 11/27/2012 11/12/2014 documented as of this encounter (statuses as of 04/28/2022) [facility] History of Past illness Narrative* Problem Noted Date Resolved Date Posterior tibial tendonitis 11/27/201210/24 Achilles tendinitis 11/27/2012 11/12/2014 documented as of this encounter (statuses as of 05/01/2022) [facility] History of Past illness Narrative* Problem Noted Date Resolved Date Posterior tibial tendonitis 11/27/201210/24 Achilles tendinitis 11/27/2012 11/12/2014 documented as of this encounter (statuses as of 05/20/2022) [facility] History of Past illness Narrative* Problem Noted Date Resolved Date Posterior tibial tendonitis 11/27/201210/24 Achilles tendinitis 11/27/2012 11/12/2014 documented as of this encounter (statuses as of 07/01/2022) [facility] History of Past illness Narrative* Problem Noted Date Resolved Date Posterior tibial tendonitis 11/27/201210/24 Achilles tendinitis 11/27/2012 11/12/2014 documented as of this encounter (statuses as of 10/06/2022) [facility] History of Past illness Narrative* Problem Noted Date Diagnosed Date Resolved Date Posterior tibial tendonitis 11/27/2012 11/12/2014 Achilles tendinitis 11/27/2012 11/13/19 15 documented as of this encounter (statuses as of 11/30/2022) [facility] History of Past illness Narrative* Problem Noted Date Diagnosed Date Resolved Date Posterior tibial tendonitis 11/27/2012 11/12/2014 Achilles tendinitis 11/27/2012 11/13/19 15 documented as of this encounter (statuses as of 06/16/2023) [facility] History of Past illness Narrative* Problem Noted Date Diagnosed Date Resolved Date Posterior tibial tendonitis 11/27/2012 11/12/2014 Achilles tendinitis 11/27/2012 11/13/19 15 documented as of this encounter (statuses as of 07/14/2023) [facility] Diagnosis Encounter for gynecological examination without abnormal finding- Primary Routine gynecological examination Encounter for screening for malignant neoplasm of cervix Screening for malignant neoplasm of the cervix Irregular intermenstrual bleeding Metrorrhagia [facility] Diagnosis Abnormal uterine bleeding (AUB)- Primary [facility] Diagnosis Missed menses- Primary Absence of menstruation [facility] Diagnosis PCOS (polycystic ovarian syndrome)- Primary Polycystic ovaries Missed menses Absence of menstruation [facility] Diagnosis Anovulation- Primary Female infertility associated with anovulation [facility] Diagnosis Encounter for gynecological examination (general) (routine) without abnormal findings- Primary PCOS (polycystic ovarian syndrome) Polycystic ovaries documented in this encounter [facility]* Diagnosis Annual physical exam- Primary Routine general medical examination at a health care facility Screening for deficiency anemia Screening for other and unspecified deficiency anemia Screening for cholesterol level Anxiety and depression [facility] Diagnosis Anxiety and depression- Primary Weight gain Other symptoms concerning nutrition, metabolism, and development documented in this encounter [facility] note* Diagnosis Anxiety and depression- Primary Weight gain Other symptoms concerning nutrition, metabolism, and development documented in this encounter [facility] note* Diagnosis Anxiety and depression- Primary PCOS (polycystic ovarian syndrome) Polycystic ovaries documented in this encounter [facility] note* Diagnosis Anxiety and depression- Primary PCOS (polycystic ovarian syndrome) Polycystic ovaries documented in this encounter [facility] note* Diagnosis PCOS (polycystic ovarian syndrome)- Primary Polycystic ovaries Elevated LDL cholesterol level Pure hypercholesterolemia IFG (impaired fasting glucose) Impaired fasting glucose Irregular menses Irregular menstrual cycle Anxiety and depression Dysthymic disorder History of bulimia Personal history of other mental disorder History of anorexia nervosa Personal history of other mental disorder Overweight with body mass index (BMI) of 29 to 29.9 in adult documented in this encounter [facility] note* Diagnosis PCOS (polycystic ovarian syndrome)- Primary Polycystic ovaries Irregular menses Irregular menstrual cycle Anxiety and depression Dysthymic disorder History of bulimia Personal history of other mental disorder History of anorexia nervosa Personal history of other mental disorder Provided repeat prescription for oral contraceptive Overweight with body mass index (BMI) of 29 to 29.9 in adult documented in this encounter [facility] note* Diagnosis Anxiety and depression- Primary Skin sensation disturbance Disturbance of skin sensation documented in this encounter [facility] for referral (narrative)* Diagnostic Procedure Only (Routine) - Authorized Specialty Diagnoses / Procedures Referred By Roberto tristan Referred To Contact [facility] Diagnoses Irregular intermenstrual bleeding Procedures PELVIC US WHI US PELVIC NONOBSTETRIC REAL-TIME IMAGE COMPLETE Niharika Lee MD [facility] [place] [address] [address] [place] [address] [facility] [place] [address] [place] [address] Referral ID Status Reason Start Date Expiration Date Visits Requested Visits Authorized [id number] Authorized Auto-Generat ed Referral 10/20/2021 10/20/2022 1 1 [facility] Summary Purpose Family History No Family History Records FoundNo Family History Records Found Advance Directives No Advanced Directives Records FoundNo Advanced Directives Records Found Additional Source Comments Source Comments (unrecognize d section and content) In the event this informatio n is protected by the Federal Confidentiality of Alcohol and Drug Abuse Patient Records regulations: The Federal rules restrict any use of the information to criminally investigate or prosecute any alcohol or drug abuse patient.[facility] the event this information is protected by the Federal Confidentiality of Alcohol and Drug Abuse Patient Records regulations: The Federal rules restrict any use of the information to criminally investigate or prosecute any alcohol or drug abuse patient.[facility] the event this information is protected by the Federal Confidentiality of Alcohol and Drug Abuse Patient Records regulations: The Federal rules restrict any use of the information to criminally investigate or prosecute any alcohol or drug abuse patient.[facility] the event this information is protected by the Federal Confidentiality of Alcohol and Drug Abuse Patient Records regulations: The Federal rules restrict any use of the information to criminally investigate or prosecute any alcohol or drug abuse patient.[facility] the event this information is protected by the Federal Confidentiality of Alcohol and Drug Abuse Patient Records regulations: The Federal rules restrict any use of the information to criminally investigate or prosecute any alcohol or drug abuse patient.[facility] the event this information is protected by the Federal Confidentiality of Alcohol and Drug Abuse Patient Records regulations: The Federal rules restrict any use of the information to criminally investigate or prosecute any alcohol or drug abuse patient.[facility] the event this information is protected by the Federal Confidentiality of Alcohol and Drug Abuse Patient Records regulations: The Federal rules restrict any use of the information to criminally investigate or prosecute any alcohol or drug abuse patient.[facility] the event this information is protected by the Federal Confidentiality of Alcohol and Drug Abuse Patient Records regulations: The Federal rules restrict any use of the information to criminally investigate or prosecute any alcohol or drug abuse patient.[facility] the event this information is protected by the Federal Confidentiality of Alcohol and Drug Abuse Patient Records regulations: The Federal rules restrict any use of the information to criminally investigate or prosecute any alcohol or drug abuse patient.[facility] the event this information is protected by the Federal Confidentiality of Alcohol and Drug Abuse Patient Records regulations: The Federal rules restrict any use of the information to criminally investigate or prosecute any alcohol or drug abuse patient.[facility] the event this information is protected by the Federal Confidentiality of Alcohol and Drug Abuse Patient Records regulations: The Federal rules restrict any use of the information to criminally investigate or prosecute any alcohol or drug abuse patient.[facility] the event this information is protected by the Federal Confidentiality of Alcohol and Drug Abuse Patient Records regulations: The Federal rules restrict any use of the information to criminally investigate or prosecute any alcohol or drug abuse patient.[facility] the event this information is protected by the Federal Confidentiality of Alcohol and Drug Abuse Patient Records regulations: The Federal rules restrict any use of the information to criminally investigate or prosecute any alcohol or drug abuse patient.[facility] the event this information is protected by the Federal Confidentiality of Alcohol and Drug Abuse Patient Records regulations: The Federal rules restrict any use of the information to criminally investigate or prosecute any alcohol or drug abuse patient.[facility] the event this information is protected by the Federal Confidentiality of Alcohol and Drug Abuse Patient Records regulations: The Federal rules restrict any use of the information to criminally investigate or prosecute any alcohol or drug abuse patient.[facility] Reason for Visit (unrecogniz ed section and content) Reason Onset Date Comments Yearly Exam 10/20/2021 Reason Comments [facility] Ultrasound Reason Comments Patient Question Reason Comments Irregular Menstrual Cycle Reason Comments Follow Up Reason Comments Orders Reason Onset Date Comments Refill Request Refill Request 10/06/2022 Reason Comments Yearly Exam Reason Comments Follow-up Health Maintenance Lipid-pendedHIV/Hep P-rhojofrqSmlce-[id number]-completedPap-CCF (will scan in)Eaot-wbzobfsuVozpwdeqm-mlqrasac Reason Comments Medication Check Weight Gain Reason Comments Medication Check Reason Comments Follow Up Labs and medication Reason Comments Weight Management Reason Comments Medication Check Foot Problem Care Teams (unrecognized sec tion and content) Wellness Nurse Relationship Specialty Start Date End Date BreRody tate III, MD [place] ADDRESS PCP - General 02/15/02 Wellness Nurse Relationship Specialty Start Date End Date BreRody tate III, MD [place]DR[place] PCP - General 02/15/02 Wellness Nurse Relationship Specialty Start Date End Date BreRody tate III, MD [place]DR[place] PCP - General 02/15/02 Wellness Nurse Relationship Specialty Start Date End Date Rody Naranjo III, MD [place]DR[place] PCP - General 02/15/02 Wellness Nurse Relationship Specialty Start Date End Date BreRody tate III, MD [place]DR[place] PCP - General 02/15/02 Wellness Nurse Relationship Specialty Start Date End Date BreRody tate III, MD [place]DR[place] PCP - General 02/15/02 Wellness Nurse Relationship Specialty Start Date End Date Rody Naranjo III, MD [place]DR[place] PCP - General 02/15/02 Wellness Nurse Relationship Specialty Start Date End Date Rody Naranjo III, MD [place]DR[place] PCP - General 02/15/02 Wellness Nurse Relationship Specialty Start Date End Date Rody Naranjo III, MD [place]DR[place] PCP - General 02/15/02 Wellness Nurse Relationship Specialty Start Date End Date BreRody tate III, MD NO FORWARDING ADDRESS PCP - General 02/15/02 Wellness Nurse Relationship Specialty Start Date End Date Kyle Betancourt MD [address] [place] [address] [place] [address] PCP - General Family Medicine 03/08/23 Wellness Nurse Relationship Specialty Start Date End Date Kyle Betancourt MD [address] [place], [place] [address] [address] PCP - General Family Medicine 03/08/23 Wellness Nurse Relationship Specialty Start Date End Date Kyle Betancourt MD [address] [facility] [place] [address] PCP - [facility] 03/08/23 Wellness Nurse Relationship Specialty Start Date End Date Kyle Betancourt MD [address] [facility] [place] [address] PCP - [facility] Family Medicine 03/08/23 Wellness Nurse Relationship Specialty Start Date End Date Joaquina Schmitz CNP [address] [facility] [place] [id number] PCP - General Family Medicine 03/23/23 Wellness Nurse Relationship Specialty Start Date End Date Joaquina Schmitz CNP [address] [place], [place] [id number] PCP - General Family Medicine 03/23/23 Wellness Nurse Relationship Specialty Start Date End Date Kyle Betancourt MD [address] [place] [address] PCP - General Family Medicine 03/08/23 INFORMATION SOURCE (unrecogn ized section and content) DATE CREATED AUTHOR 07/18/2023 [facility] DATE CREATED AUTHOR AUTHOR'S MARILYN CAMPUZANO 12/06/2023 [facility] FOR RECORDS PERTAINING TO PATIENTS WHO ARE OR HAVE BEEN ENROLLED IN A CHEMICAL DEPENDENCY/SUBSTANCEABUSE PROGRAM, SOME INFORMATION MAY BE OMITTED. This clinical summary was aggregated from multiple sources. Caution should be exercised in using it in the provision of clinical care. This summary normalizes information from multiple sources, and as a consequence, information in this document may materially change the coding, format and clinical context of patient data. In addition, data may be omitted in some cases. CLINICAL DECISIONS SHOULD BE BASED ON THE PRIMARY CLINICAL RECORDS. [employer] [facility]. provides no warranty or guarantee of the accuracy or completeness of information in this document.
[2024-02-15 08:10] LABS: Hemoglobin A1c 5.3 % (3.8-5.6)
[2024-02-15 08:21] LABS: ALB/GLOB Ratio 1.3 RATIO (0.9-2.4); AST(SGOT) 22 U/L (15-37); Alanine Aminotransfer ALT/SGPT 51 U/L (13-56); Albumin, Serum 4.2 g/dL (3.2-5.0); Alkaline Phosphatase 79 U/L (45-117); Anion Gap 5 (5-15); BUN 9 mg/dL (7-18); Calcium,Total 8.9 mg/dL (8.5-10.1); Chloride 109 mmol/L (98-107); Cholesterol 237 mg/dL (200); Creatinine, Serum 0.82 mg/dL (0.55-1.02); EST Glomerular Filtration Rate 90 mL/min (>60); Est Glom Filt Rate - Afr Amer 108 mL/min (>60); Globulin 3.3 g/dL (2.2-4.2); Glucose 105 mg/dL (74-106); High Density Lipoprotein 72 mg/dL; Protein, Total 7.5 g/dL (6.4-8.2); Sodium Level 140 mmol/L (136-145); T4 Free Direct 0.84 ng/dL (0.76-1.46); Triglycerides 86 mg/dL; Very Low Density Lipoprotein 17 mg/dL (5-40)
[2024-02-16 08:13] LABS: PROGESTERONE 0.7 ng/mL (.)
[2024-02-20 03:06] LABS: PROLACTIN 37.7 ng/mL (4.8-33.4); Testosterone Free 4.6 pg/mL (0.0-4.2)
== END | disposition home or self-care (01) ==
LOC: LAB 07:03
PROVIDERS: PCP Nurse Practitioner Family; Referring Provider Nurse Practitioner Family; Visit Provider Nurse Practitioner Family
DX: E28.2 Polycystic ovarian syndrome (principal)
CPT/HCPCS: 36415; 80053; 80061; 82627; 83036; 84144; 84146; 84402; 84439; 84443; 82626

== ENCOUNTER → 2024-02-21 | Outpatient (CLI) | payer BC, SELFPAY ==
--- NOTE | 2024-02-21 17:24 | US_ITS ---
EXAM: US PELVIS TRANSABDOMINAL AND TRANSVAGINAL, COMPLETE CLINICAL INDICATION: PCOS TECHNIQUE: Transabdominal and transvaginal pelvic ultrasound was performed with grayscale and color Doppler imaging. Transvaginal imaging was used for better evaluation of the endometrium and adnexa. COMPARISON: No relevant prior studies available. FINDINGS: UTERUS/CERVIX: Unremarkable. Anteverted. There is no uterine mass. The uterus measures 7.8 x 4.7 x 2.6 cm. The endometrial stripe measures 0.6 cm in thickness. RIGHT OVARY: Multiple small peripheral follicles in the right ovary. Blood flow is present in the right ovary. The right ovary measures 3.6 x 3.0 x 2.4 cm with a volume of 13.6 ml. LEFT OVARY: Multiple small peripheral follicle in the left ovary. Blood flow is present in the left ovary. The left ovary measures 3.6 x 3.2 x 1.9 cm with a volume of 11.5 ml. FREE FLUID: None. BLADDER: Unremarkable as visualized. Wall is normal thickness for degree of distention. US/Pelvic w/ Transvaginal IMPRESSION: Mildly enlarged ovaries bilaterally with multiple small peripheral follicles consistent with polycystic ovary disease. Electronically Signed: Glen Levy MD at 3:08 EDT ,
== END | disposition home or self-care (01) ==
LOC: US 17:21
PROVIDERS: PCP Nurse Practitioner Family; Referring Provider Nurse Practitioner Family; Visit Provider Nurse Practitioner Family
DX: E28.2 Polycystic ovarian syndrome (principal)
CPT/HCPCS: 76830; 76856

== ENCOUNTER → 2024-02-23 | Outpatient (CLI) | payer BC, SELFPAY ==
[2024-03-05 14:41] LABS: HPV Reflexed? NOT INDICATED
== END | disposition home or self-care (01) ==
LOC: LABSPEC 11:56
PROVIDERS: PCP Nurse Practitioner Family; Referring Provider Nurse Practitioner Family; Visit Provider Nurse Practitioner Family
DX: N89.8 Other specified noninflammatory disorders of vagina (principal); Z12.4 Encounter for screening for malignant neoplasm of cervix
CPT/HCPCS: 36415; 87070; 87205; 88175; G0145

== ENCOUNTER → 2024-03-07 | Outpatient (CLI) | payer BC, SELFPAY | END | disposition home or self-care (01) | LOC: LAB 07:15 | PROVIDERS: PCP Nurse Practitioner Family; Referring Provider Nurse Practitioner Women's Health; Visit Provider Nurse Practitioner Women's Health | DX: N97.9 Female infertility, unspecified (principal) | CPT/HCPCS: 36415 ==

== ENCOUNTER → 2024-03-25 | Outpatient (CLI) | payer BC, SELFPAY ==
[2024-03-27 04:07] LABS: PROGESTERONE 0.2 ng/mL (.); PROLACTIN 15.5 ng/mL (4.8-33.4); Thyroid Peroxidase AB < 9 IU/mL (0-34)
== END | disposition home or self-care (01) ==
PROVIDERS: Nurse Practitioner Family; PCP Nurse Practitioner Family; Referring Provider Nurse Practitioner Women's Health; Visit Provider Nurse Practitioner Women's Health
DX: E28.2 Polycystic ovarian syndrome (principal); N97.9 Female infertility, unspecified
CPT/HCPCS: 36415; 84144; 84146; 86376

== ENCOUNTER → 2024-05-08 | Outpatient (CLI) | payer BC, SELFPAY ==
[2024-05-09 12:08] LABS: PROGESTERONE 2.8 ng/mL (.)
== END | disposition home or self-care (01) ==
PROVIDERS: PCP Nurse Practitioner Family; Referring Provider Nurse Practitioner Women's Health; Visit Provider Nurse Practitioner Women's Health
DX: N97.9 Female infertility, unspecified (principal)
CPT/HCPCS: 36415; 84144

== ENCOUNTER → 2024-05-17 | Outpatient (CLI) | payer BC, SELFPAY ==
[2024-05-17 11:16] LABS: hCG Titer Quant., Serum 8 mIU/mL (1-3)
== END | disposition home or self-care (01) ==
LOC: LAB 09:48
PROVIDERS: PCP Nurse Practitioner Family; Referring Provider Obstetrics & Gynecology; Visit Provider Obstetrics & Gynecology
DX: N91.2 Amenorrhea, unspecified (principal)
CPT/HCPCS: 36415; 84702

== ENCOUNTER → 2024-05-19 | Outpatient (CLI) | payer BC, SELFPAY ==
[2024-05-19 08:06] LABS: hCG Titer Quant., Serum 28 mIU/mL (1-3)
== END | disposition home or self-care (01) ==
LOC: LAB 06:42
PROVIDERS: PCP Nurse Practitioner Family; Referring Provider Obstetrics & Gynecology; Visit Provider Obstetrics & Gynecology
DX: Z34.90 Encounter for supervision of normal pregnancy, unspecified, unspecified trimester (principal)
CPT/HCPCS: 36415; 84702

== ENCOUNTER → 2024-06-21 | Outpatient (CLI) | payer BC, SELFPAY ==
[2024-06-21 14:51] LABS: hCG Titer Quant., Serum 49602 mIU/mL (<9 non-preg)
[2024-06-25 23:07] LABS: Chlamydia By Nucleic Acid AMP Negative (Negative); Gonococcus By Nucleic Acid AMP Negative (Negative)
== END | disposition home or self-care (01) ==
LOC: BWCLAB 11:56
PROVIDERS: PCP Nurse Practitioner Family; Referring Provider Advanced Practice Midwife; Visit Provider Advanced Practice Midwife
DX: O09.90 Supervision of high risk pregnancy, unspecified, unspecified trimester (principal); Z3A.09 9 weeks gestation of pregnancy
CPT/HCPCS: 36415; 84702; 87086; 87491; 87591

== ENCOUNTER → 2024-06-23 | Outpatient (CLI) | payer BC, SELFPAY ==
[2024-06-23 09:30] LABS: hCG Titer Quant., Serum 41103 mIU/mL (<9 non-preg)
== END | disposition home or self-care (01) ==
LOC: LAB 07:03
PROVIDERS: PCP Nurse Practitioner Family; Referring Provider Advanced Practice Midwife; Visit Provider Advanced Practice Midwife
DX: Z34.90 Encounter for supervision of normal pregnancy, unspecified, unspecified trimester (principal); Z87.59 Personal history of other complications of pregnancy, childbirth and the puerperium
CPT/HCPCS: 36415; 84702

== ENCOUNTER → 2024-06-25 | Outpatient (CLI) | payer BC, SELFPAY ==
[2024-06-25 11:13] LABS: hCG Titer Quant., Serum 37817 mIU/mL (<9 non-preg)
== END | disposition home or self-care (01) ==
LOC: LAB 09:21
PROVIDERS: PCP Nurse Practitioner Family; Referring Provider Obstetrics & Gynecology; Visit Provider Obstetrics & Gynecology
DX: O20.0 Threatened abortion (principal); Z3A.00 Weeks of gestation of pregnancy not specified
CPT/HCPCS: 36415; 84702; 86850; 86900; 86901

== ENCOUNTER → 2024-06-28 | Outpatient (CLI) | payer BC, SELFPAY ==
--- NOTE | 2024-06-28 09:43 | US_ITS ---
PROCEDURE: TRANSVAGINAL W/PREG US REASON FOR EXAM: Viability. Irregular menses. COMPARISON: None FINDINGS: Comments: LMP: April 18, 2024. Number of Gestational Sacs: 1. It measures 1.9 cm corresponding to a gestational age of 6 weeks and 6 days. Gestational Sac Shape: Normal Number of Fetuses: 1 Heart Rate: Not detected at this time. (Average) Yolk Sac: Present and unremarkable. Placenta: Presently not well-visualized Amniotic Fluid Volume: Subjectively normal for gestational age. Uterine Abnormalities: Maternal uterus is unremarkable. Ovaries / Adnexa: Both maternal ovaries are visualized and unremarkable. DIMENSIONS: Parameter Measurement / EGA [place] Rump Length: 4 mm/6 weeks and 2 days Gestational Sac: 1.9 cm/6 weeks and 6 days Yolk Sac: 3 mm/ ESTIMATED GESTATIONAL AGE: By Ultrasound: 6 weeks 4 days. By LMP: Unknown. ESTIMATED DATE OF DELIVERY: By Ultrasound: February 17, 2025. By LMP: US/Transvaginal w/Preg US IMPRESSION: Single intrauterine gestation with a mean gestational age of 6 weeks and 4 days . No cardiac activity detected at this time. Follow-up recommended. Reading Location: [facility]
== END | disposition home or self-care (01) ==
PROVIDERS: PCP Nurse Practitioner Family; Referring Provider Advanced Practice Midwife; Visit Provider Advanced Practice Midwife
DX: O09.90 Supervision of high risk pregnancy, unspecified, unspecified trimester (principal); Z87.59 Personal history of other complications of pregnancy, childbirth and the puerperium; Z3A.09 9 weeks gestation of pregnancy
CPT/HCPCS: 76817

== ENCOUNTER 2024-06-29 11:39 | Day surgery (SDC) | payer BC, SELFPAY ==
[2024-06-29] VITALS (7 sets, daily range): BP systolic 101–121; BP diastolic 52–72; PULSE 63–81; RESP 16–20; TEMP 36.2–37.3; O2SAT 97–99; BMI 28.0
--- NOTE | 2024-06-29 11:52 | PRE.ANES_ITS ---
ASA Classification* ASA Classification ASA Classification: 2 Assessment & Plan Anesthesia* Anesthesia Assessment Anesthesia Assessment: Discussed sedation and/or anesthesia options, risks, benefits, and alternatives with patient/parents/legal guardian/POA. Questions invited. The patient/parents/legal guardian/POA seems to understand and agrees to proceed with anesthesia plan. Reviewed the physical assessment, medical history, allergy history and patient home medications list prior to surgery/procedure/anesthetic and documented any changes. Performed airway and anesthesia risk assessments. Anesthesia Type Anesthesia Type: MAC Anesthesia Focused Assessment* Airway Assessment Mouth opens: >3 cm Mallampati Score: II Focused Labs Anesthesia Preop lab: CBC CHEMISTRY Potassium 4.0 mmol/L (3.5-5.1) 02/15/24 07:05 02/15/24 Sodium 140 mmol/L (136-145) 02/15/24 07:05 02/15/24 BUN 9 mg/dL (7-18) 02/15/24 07:05 02/15/24 Creatinine 0.82 mg/dL (0.55-1.02) 02/15/24 07:05 02/15/24 Glucose 105 mg/dL (74-106) 02/15/24 07:05 02/15/24 TSH 2.330 uIU/mL (0.358-3.740) 02/15/24 07:05 01/24 07/16 COAG HCG, Quant 57639 mIU/mL (<9 non-preg) H 06/25/24 09:25 Urine Test Negative Negative 10/28/15 09:50 10/28/15 Pre-Assessment Diagnosis/Proposed Procedure Planned Operative Procedure(s): SUCTION D&C Anesthesia History 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 When Was Last Pacemaker Check QUESTION #4 FULL TEXT: You/Your Family Experience fever (hyperthermia) with Anesthesia Last Oral Intake Last Oral intake: Last Oral Intake NPO since Meds taken in AM with sips of water? 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 Female Yes 06/28/24 15:22 HX of Motion Sickness No 06/28/24 15:22 HX of N/V After Surgery Yes 06/28/24 15:22 Non-Smoker Yes 06/28/24 15:22 Duration of Surgery greater No 06/28/24 15:22 than 60 minutes Number of Risk Factors 3 06/28/24 15:22 PONV Score Moderate Risk 06/28/24 15:22 Height & Weight Height & Weight: Anesthesia: Height & Weight Height 5 ft 4 in 06/28/24 16:33 Weight: 74.843 kg 06/28/24 16:33 Respiratory Assessment Respiratory Assessment - dishwashing machine operator: Respiratory Tract Infection Hx - dishwashing machine operator Hx Respiratory Tract Infection No 06/28/24 15:22 STOP Sleep Apnea STOP Sleep Apnea - dishwashing machine operator: STOP Sleep Apnea - dishwashing machine operator Hx Hypertension No 06/28/24 15:22 Hx Sleep Apnea No 06/28/24 15:22 CPAP BIPAP Do you snore loudly (louder No 06/28/24 15:22 than talking or can be heard Do you often feel tired/ No 06/28/24 15:22 fatigued/ sleepy during daytime? Has anyone observed you stop No 06/28/24 15:22 breathing during sleep? STOP Results Negative 06/28/24 15:22 QUESTION #5 FULL TEXT : Do you snore loudly (louder than talking or can be heard through closed doors)? 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 Specify any problems Hx of Preganancy in last 3 No 06/28/24 15:22 Months Nurse Filling Out Transfusion VCHRISTIN 06/28/24 15:22 & Questions: Date: 06/28/24 06/28/24 15:22 Time: 15:23 06/28/24 15:22 Patient unable to answer at this time (ie. confused, unrespo /Reproduction History /Reproductive History - dishwashing machine operator: /Reproductive Hx- dishwashing machine operator Hx Now Yes 06/28/24 15:22 Gestational Age (in weeks): EDC: Hx Hx Para Hx Section SAB No 06/28/24 15:22 [facility] Medical History Wears contact lenses Wears glasses Depression Anxiety Injury of head and neck Loss of consciousness Non-smoker Seasonal allergies Vocal cord dysfunction History of miscarriage PCOS (polycystic ovarian syndrome) Anxiety and depression Fatigue Asthma Home Medications ?Medication ?Instructions ?Recorded ?Last Taken ?Type albuterol sulfate 90 mcg/actuation 1 - 2 puff inhalati on Q4H PRN PRN 07/15/14 Unknown History aerosol inhaler (Ventolin HFA) sob multivit-min no.71-iron fum 28 1 cap PO DAILY 06/15/24 Unknown History mg-folate no.1 1 mg-dha 300 mg capsule (PNV-[place]) sertraline 50 mg tablet (Zoloft) 50 mg PO QDAY #60 tab s 06/21/24 Unknown Rx Allergy/AdvReac Type Severity Reaction Status Date / Time tree and shrub pollen Allergy Mild Other Verified 06/28/24 15:16 weed pollen Allergy Mild Other Verified 06/28/24 15:16 Family History Grandmother Breast cancer, Onset Age: 45 Maternal Grandfather Myocardial infarction, Onset Age: 51 Maternal Mother Thyroid disorder hypothyroid Surgical History History of wisdom tooth extraction History of ankle surgery Social History adopted: No household members: spouse and other details: Partial custody of 3 step children housing: house number of children: 3 current occupational status: employed 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 current occupational exposures/hazards: No pets and animals: Yes (Avoid litterbox) pets and animals: cat(s), dog(s), turtle(s) and farm animals history of recent travel: No sexually active: Yes Smoking Status: Never smoker alcohol intake: current alcohol intake frequency: a few times a month details: not while substance use type: does not use well-balanced diet: daily or most days caffeine: No eating out: 1-3 times/week during the past year weight has: increased > 10 lbs what type of physical activity do you participate in: walking frequency: 3-4 times per week duration: 15-30 minutes/day tanika/mormon: Hindu seatbelt use: always do you feel safe at home: Yes 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
[2024-06-29] MEDS: Doxycycline 100 MG CAPSULE PO (12:17)
[2024-06-29 12:30] LABS: Hematocrit 37.2 % (37-47); Hemoglobin 12.7 g/dL (12.0-15.0); Mean Corp Hgb Conc 34.1 g/dL (32-36); Mean Corpuscular Hgb 28.9 pg (27.0-32.0); Mean Corpuscular Volume 84.5 fL (81-99); Mean Platelet Vol. 11.2 fl (6.2-12.0); Platelet Count 340 K/mm3 (150-450); RBC Distribution Width CV 12.1 % (11.6-14.6); RBC Distribution Width SD 36.8 fl (35.1-43.9)
--- NOTE | 2024-06-29 13:30 | POC_PTH ---
PATIENT: DAVID CONTI LOC: [facility] [place] U#:[id number] AGE/SX: 28/F ROOM: RE06/29/[address]: Dr. Fadumo Barreto MD : 1995 BED: DIS: 06/29/2024 SPEC #: [id number] RECD: 06/29/24 17:25 STATUS: NARA REBala #: [id number] CONNIE: 06/29/24 13:[address]: Fadumo Barreto DEPT: SURGICAL PATHOLOGY RECD BY: Elle Elliott ENTERED: 07/02/24 08:24 SP TYPE: PROD CONC OTHR DR: Carolina Schmitz, TOMAS Tissues: Product of conception, NOS Procedures: Surgery Specimen Level IV HEADER OPERATION: Dilation and curettage, suction PRE-OP DIAGNOSIS: Missed TISSUE SUBMITTED: Products of conception MICROSCOPIC DIAGNOSIS Uterine contents, suction D&C: * Immature chorionic villi, decidua and secretory endometrium, consistent with products of conception. MICROSCOPIC DESCRIPTION Slides are reviewed. GROSS DESCRIPTION Received in fixative is one container labeled with the patient's name and designated Products of conception. The specimen is received in a suction device and consists of multiple fragments of anders-talavera spongy to mucoid soft tissue measuring 7 x 5 x 0.8cm in aggregate. Possible villi are identified, but no parts are identified. RS3 mr 07/02/2024 CPT: 59398
--- NOTE | 2024-06-29 14:45 | HP.PCM.OB_ITS ---
HPI - General HPI Narrative DAVID CONTI, is a 28 F who presents for early loss, supposed to be 9 weeks and only measuring 5-6 with early heartbeat seen and then no FHT seen on follow up ultrasound. patient denies any significant crmaping or pain no fevers. PFSH PFS Medical History Wears contact lenses Wears glasses Depression Anxiety Injury of head and neck Loss of consciousness Non-smoker Seasonal allergies Vocal cord dysfunction History of miscarriage PCOS (polycystic ovarian syndrome) Anxiety and depression Fatigue Asthma Home Medications ?Medication ?Instructions ?Recorded ?Last Taken ?Type albuterol sulfate 90 mcg/actuation 1 - 2 puff inhalati on Q4H PRN PRN 07/15/14 Unknown History aerosol inhaler (Ventolin HFA) sob multivit-min no.71-iron fum 28 1 cap PO DAILY 06/15/24 Unknown History mg-folate no.1 1 mg-dha 300 mg capsule (PNV-[place]) sertraline 50 mg tablet (Zoloft) 50 mg PO QDAY #60 tab s 06/21/24 Unknown Rx Allergy/AdvReac Type Severity Reaction Status Date / Time tree and shrub pollen Allergy Mild Other Verified 06/29/24 12:16 weed pollen Allergy Mild Other Verified 06/29/24 12:16 Family History Grandmother Breast cancer, Onset Age: 45 Maternal Grandfather Myocardial infarction, Onset Age: 51 Maternal Mother Thyroid disorder hypothyroid Surgical History History of wisdom tooth extraction History of ankle surgery Social History adopted: No household members: spouse and other details: Partial custody of 3 step children housing: house number of children: 3 current occupational status: employed 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 current occupational exposures/hazards: No pets and animals: Yes (Avoid litterbox) pets and animals: cat(s), dog(s), turtle(s) and farm animals history of recent travel: No sexually active: Yes Smoking Status: Never smoker alcohol intake: current alcohol intake frequency: a few times a month details: not while substance use type: does not use well-balanced diet: daily or most days caffeine: No eating out: 1-3 times/week during the past year weight has: increased > 10 lbs what type of physical activity do you participate in: walking frequency: 3-4 times per week duration: 15-30 minutes/day tanika/restoration: Bahai seatbelt use: always do you feel safe at home: Yes 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 Date Name GA/Weeks Outcome Route Bth Weight Gen Labor Lgth Anesthesia Del Locatn Provider FOB Unknown February 2023 5 spontaneous 06/29/24 6 spontaneous Delivery Date: 06/29/24 Last Updated by: Windy Fiore RN D&C w/SM ROS Constitutional Constitutional: Reports systems reviewed and no addt'l complaints, except as documented; Denies as per HPI, change in weight, fatigue, fever(s), malaise, weakness or other Eyes Eyes: Reports systems reviewed and no addt'l complaints, except as documented; Denies as per HPI, change in vision or other ENT HEENT: Reports systems reviewed and no addt'l complaints, except as documented Respiratory/Chest Respiratory/Chest: Reports systems reviewed and no addt'l complaints, except as documented Gastrointestinal Gastrointestinal: Reports systems reviewed and no addt'l complaints, except as documented and as per HPI Genitourinary Genitourinary: Reports as per HPI Musculoskeletal Musculoskeletal: Reports systems reviewed and no addt'l complaints, except as documented Neurologic Neurologic: Reports systems reviewed and no addt'l complaints, except as documented Psychiatric Psychiatric: Reports systems reviewed and no addt'l complaints, except as documented Endocrine Endocrinology: Reports systems reviewed and no addt'l complaints, except as documented Hematologic/Lymphatic Hematologic/Lymphatic: Reports systems reviewed and no addt'l complaints, except as documented Vital Signs Vital Signs Vital Signs: 06/29/24 12:02 06/29/24 12:02 Temperature 99.2 F H Temperature Source Temporal Pulse Rate 73 Respiratory Rate 16 Respiratory Pattern Normal Blood Pressure 121/58 H Blood Pressure Mean 79 Blood Pressure Source Monitor Blood Pressure Position Semi-Fowlers Blood Pressure Location Right Arm Pulse Ox 97 Oxygen Delivery Method Room Air Weight Weight: 163 lb 2.273 oz Body Mass Index (BMI) 28.0 Physical Exam Const alert, oriented x3 and no apparent distress HEENT normocephalic Head and Scalp: atraumatic Eyes EOMs intact bilaterally and conjunctivae normal Neck full ROM, no lymphadenopathy, supple and thyroid normal General: trachea midline Lymph Lymphatic: no lymphadenopathy noted Resp normal respiratory effort, no retractions and no use of accessory muscles Cardio regular rhythm GI soft to palpation, non-distended and no masses Inspection: Negative for abdominal distention Extremity normal to inspection Skin no rashes or lesions noted Neuro moves all extremities Psych mental status grossly normal Labs Labs Labs: Blood Type O POSITIVE Antibody Screen NEGATIVE Hct 37.2 % (37-47) Hgb 12.7 g/dL (12.0-15.0) Obstetrics Ultrasound Chlamydia DNA (SULEMA) Negative (Negative) N.gonorrhoeae DNA (SULEMA) Negative (Negative) Assessment & Plan (1) Missed : COMMENT: plan suction d and c PLAN: Plan After discussing the patient's diagnosis and treatment plan options, patient wishes to proceed with surgical management. I have discussed with the patient the risks, benefits, and alternatives of the procedure which include but are not limited to risks of anesthesia, bleeding, infection, possible damage to bowel, bladder, or surrounding vasculature which could lead to additional surgery to evaluate any complications. Patient agrees to procedure and wishes to proceed. ACOG/uptodate references given for additional information regarding procedure.
--- NOTE | 2024-06-29 14:57 | OP.PCM_ITS ---
Procedures Urinary/Genital 52xxx-59xxx: 69913 Trmt of incomplete Ab, any TM Operative Report (Standard) Operative Information Date of Procedure: 06/29/24 Pre-Operative Diagnosis: see problem list comments Post-Operative Diagnosis: same Surgery/Procedure Performed: suction dilation and curettage branding machine operator: No Type of Anesthesia: IV Sedation and Local RN Documented Start/Stop Times: Operation Date: 06/29/24 13:30 Case Time Into Pre-Op 06/29/24 11:43 Out of Pre-Op 06/29/24 14:49 Select all DRAINS/GRAFTS/IMPLANTS that apply: None Specimen collected: Yes Description of specimen(s) removed: retained POC Description of surgery: Patient was taken to the operating room and placed under MAC local anesthesia. She was prepped and draped in the normal sterile fashion the dorsal lithotomy position. Bladder was drained of clear urine and anterior lip of the cervix was grasped and the uterus sounded to []. Cervix was progressively dilated to allow passage of a [] suction curette. Progressive passes were made removing the retained products of conception without complication. Sharp curettage confirmed complete removal of the retained products. All instruments were removed from the vagina and excellent hemostasis was noted and the patient was taken to recovery in stable condition. Surgical Findings: 6 weeks miscarriage Complications Complications: No
--- NOTE | 2024-06-29 14:57 | PCM.OPRPT ---
Problems Associated Problem List Diagnoses (1) Missed : Procedures Urinary/Genital 52xxx-59xxx: 24336 Trmt of incomplete Ab, any TM Operative Report (Standard) Operative Information Date of Procedure: 06/29/24 Pre-Operative Diagnosis: see problem list comments Post-Operative Diagnosis: same Surgery/Procedure Performed: suction dilation and curettage sales support coordinator: No Type of Anesthesia: IV Sedation and Local RN Documented Start/Stop Times: Operation Date: 06/29/24 13:30 Case Time Into Pre-Op 06/29/24 11:43 Out of Pre-Op 06/29/24 14:49 Anesthesia Start 06/29/24 14:52 Into Room 06/29/24 14:52 Procedure Start 06/29/24 15:04 Procedure End 06/29/24 15:10 Anesthesia End 06/29/24 15:15 Out of Room 06/29/24 15:15 Into Recovery 06/29/24 15:17 Into Phase II Recovery 06/29/24 15:46 Out of Recovery 06/29/24 15:46 Out of Phase II 06/29/24 16:24 Procedure Start Time: 15:04 Procedure Stop Time: 15:10 Select all DRAINS/GRAFTS/IMPLANTS that apply: None Estimated Blood Loss: 50 Specimen collected: Yes Description of specimen(s) removed: retained POC Description of surgery: Patient was taken to the operating room and placed under MAC local anesthesia. She was prepped and draped in the normal sterile fashion the dorsal lithotomy position. Bladder was drained of clear urine and anterior lip of the cervix was grasped and the uterus sounded to 9. Cervix was progressively dilated to allow passage of a 9mm suction curette. Progressive passes were made removing the retained products of conception without complication. Sharp curettage confirmed complete removal of the retained products. All instruments were removed from the vagina and excellent hemostasis was noted and the patient was taken to recovery in stable condition. Surgical Findings: 6 weeks miscarriage Complications Complications: No
--- NOTE | 2024-06-29 14:59 | DCINST_ITS ---
Discharge Instructions Diet Discharge Diet: No restrictions DC O2, CPAP, BIPAP needs Home O2 Discharge instructions: No Dressing / Incision Discharge Activity: Return to Normal Activity, May Shower and May Take a Tub Bath (after 1 week) May resume sexual activity in: 1-2 weeks Weight Bearing Status: Weight bearing as tolerated Lifting Restrictions: none Dressing / Incision Call your doctor if you observe: Fever of 101 or Higher, Using more than 1 pad per hour, Shortness of breath and Uncontrolled pain Follow Up Care Please Follow Up With: Fadumo Barreto MD When: Call [phone] to schedule appointment. Test Results: Test results from this visit will be discussed in further detail at your follow- up appointment, if applicable. Discharge Plan Admission Attending Provider: Fadumo Barreto Primary Care Provider: Carolina Schmitz Instructions Print Language: Bengali Discharge Orders/Prescriptions Prescriptions: No Action PNV-[place] 28-1-300 mg capsule 1 cap PO DAILY sertraline [Zoloft] 50 mg tablet 50 mg PO QDAY Qty: 60 3RF albuterol sulfate [Ventolin HFA] 1 INHALER inhaler 1 - 2 puff inhalation Q4H PRN PRN (Reason: sob) Referrals / Follow Up: Carolina Schmitz, ABSTRACT MANAGER-C [Primary Care Provider] - Disposition Disposition (needs filled in before D/C Order can be placed): Home, Self Care
[2024-06-29] MEDS: Lidocaine 1% (20 ml mdv) 20 ML Vial (15:09)
--- NOTE | 2024-06-29 15:24 | PCM.POST.ANE ---
Anesthesia: Postop Eval I Current Vital Signs Temperature: 97.1 F Pulse Rate: 81 Blood Pressure: 105/52 Respiratory Rate: 20 Pulse Ox: 98 Oxygen Delivery Method: Room Air Assessment Airway patent: Yes Spontaneous unlabored respirations: Yes Mental status: Awake and Calm nausea: No Vomiting: No Anesthesia Complication: No Fluid Hydration Crystalloid volume administer (ml): 250 Total IV fluid infused: 250 Progress Note Anesthesia document: Postop Eval 1 completed: Yes
--- NOTE | 2024-06-29 15:30 | POSTOPAN2_ITS ---
Anesthesia Postop Eval I Sum Postop Eval Completion status Anesthesia document: Postop Eval 1 completed: Yes Anesthesia Postop Eval I Summary Anesthesia Postop Eval I Summary: Anesthesia Postop Eval I: Assessment Summary Airway patent Yes 06/29/24 15:25 FEDERAL JUDICIAL LAW [email or web address] Spontaneous unlabored Yes 06/29/24 15:25 FEDERAL JUDICIAL LAW [email or web address] respirations Mental status Awake,Calm 06/29/24 15:25 FEDERAL JUDICIAL LAW [email or web address] nausea No 06/29/24 15:25 FEDERAL JUDICIAL LAW [email or web address] Vomiting No 06/29/24 15:25 FEDERAL JUDICIAL LAW [email or web address] Anesthesia Postop Eval I: Fluid Summary Crystalloid volume administer 250 06/29/24 15:25 FEDERAL JUDICIAL LAW [email or web address] (ml) Colloids volume administered ( ml) Blood Product volume administered (ml) Total IV fluid infused 250 06/29/24 15:25 FEDERAL JUDICIAL LAW [email or web address] Anesthesia Postop Eval I: Summary Notes Anesthesia Complication No 06/29/24 15:25 FEDERAL JUDICIAL LAW [email or web address] Anesthesia Complication Comment: Post-operative progress note Anesthesia: Postop Eval II Evaluation Mental status: Awake Pain Level: 0 nausea: No Vomiting: No
--- NOTE | 2024-06-29 15:30 | PCM.POSTANE2 ---
Anesthesia Postop Eval I Sum Postop Eval Completion status Anesthesia document: Postop Eval 1 completed: Yes Anesthesia Postop Eval I Summary Anesthesia Postop Eval I Summary: Anesthesia Postop Eval I: Assessment Summary Airway patent Yes 06/29/24 15:25 [email or web address] Spontaneous unlabored Yes 06/29/24 15:25 [email or web address] respirations Mental status Awake,Calm 06/29/24 15:25 [email or web address] nausea No 06/29/24 15:25 [email or web address] Vomiting No 06/29/24 15:25 [email or web address] Anesthesia Postop Eval I: Fluid Summary Crystalloid volume administer 250 06/29/24 15:25 [email or web address] (ml) Colloids volume administered ( ml) Blood Product volume administered (ml) Total IV fluid infused 250 06/29/24 15:25 [email or web address] Anesthesia Postop Eval I: Summary Notes Anesthesia Complication No 06/29/24 15:25 [email or web address] Anesthesia Complication Comment: Post-operative progress note Anesthesia: Postop Eval II Evaluation Mental status: Awake Pain Level: 0 nausea: No Vomiting: No
== END 2024-06-29 16:24 | disposition home or self-care (01) ==
LOC: SDC 11:40 → AC 11:41
PROVIDERS: PCP Nurse Practitioner Family; Referring Provider Obstetrics & Gynecology; Visit Provider Obstetrics & Gynecology
PROC: (CPT 59812; principal; 2024-06-29 13:15)
DX: O03.4 Incomplete spontaneous abortion without complication (principal)
CPT/HCPCS: 59812; 01965; 85027; 86850; 86900; 86901; 88305; A4216; J2405

== ENCOUNTER 2024-10-02 10:56 | Emergency (ER) | payer BC, SELFPAY ==
[2024-10-02 10:57] VITALS: BP 139/89; PULSE 79; RESP 14; TEMP 36.3; O2SAT 98; BMI 29.3
--- NOTE | 2024-10-02 11:13 | US_ITS ---
PROCEDURE: TRANSVAGINAL NON- 10/02/2024 REASON FOR EXAM: VAGINAL BLEEDING TECHNIQUE: Transvaginal pelvic ultrasound COMPARISON: Prior study dated June 28, 2024. FINDINGS: Measurements: Uterus: 7.5 cm x 3.4 cm x 3.2 cm with a volume of 42.6 mL Endometrial Thickness: 2.9 mm it is hyperechoic. Right Ovary: 3.3 cm x 2.6 cm x 2.6 cm with a volume of 11.9 mL. Left Ovary: Not visualized. Uterus: Normal size, myometrial echotexture, and contour. Nabothian cyst. Endometrium: Unremarkable. Right ovary: Normal size and echotexture. Left ovary: Not visualized. Other: No large pelvic mass identified. US/Transvaginal Non- IMPRESSION: Unremarkable examination. Reading Location: [place] [address]
--- NOTE | 2024-10-02 11:13 | EKG12_ITS ---
Test Reason : ARRYTH Blood Pressure : */* mmHG Vent. Rate : 70 BPM Atrial Rate : 70 BPM P-R Int : 124 ms QRS Dur : 84 ms QT Int : 388 ms P-R-T Axes : 28 88 59 degrees QTcB Int : 419 ms Normal sinus rhythm Normal ECG Confirmed by Glen Ordonez ([id number]), supervising editor news reel JESSICA RIBEIRO ([id number]) on 10/04/2024 6:13:54 AM Referred By: Confirmed By: Glen Ordonez
--- NOTE | 2024-10-02 11:14 | EDS_ITS ---
HPI HPI - Female History of Present Illness Chief Complaint: Vag Bleeding Informant: patient and spouse/S.O. Narrative Narrative: Sent in by her SURGICAL TECHNOLOGY INSTRUCTOR office for evaluation increasing vaginal bleeding. Patient had miscarriage this past June having a D&C. No complications she had a normal period last month. She saw her malthouse laborer was started on progesterone and preparations for continued plans to try to get . She has PCOS with abnormal periods in the past. She states she started having bleeding August 23 this was over a month ago has been on and off. States throughout this time only had 4 days where she did not spot. Seeing her malthouse laborer Dr. Pineda a week ago her progesterone was increased to 10 mg daily. She states today while at work increasing heavy bleeding 4 soaked tampons in 4 hours and lightheaded. States pelvic cramping. No anticoagulants. I discussed with the office who referred her to the ED. [facility] Medical History (Updated 10/02/24 @ 13:[address] Benito Terry, DO) Wears contact lenses Wears glasses Depression Anxiety Injury of head and neck Loss of consciousness Non-smoker Seasonal allergies Vocal cord dysfunction History of miscarriage PCOS (polycystic ovarian syndrome) Anxiety and depression Fatigue Asthma Home Medications ?Medication ?Instructions ?Recorded ?Last Taken ?Type albuterol sulfate 90 mcg/actuation 1 - 2 puff inhalati on Q4H PRN sob 07/15/14 Unknown History aerosol inhaler (Ventolin HFA) letrozole 2.5 mg tablet 2.5 mg PO DAILY #5 tabs 08/24 Unknown Rx AISHA & D-CHIRO 4 cap PO DAILY 10/02/2409/23 History medroxyprogesterone 10 mg tablet 10 mg PO DAILY 10/02/24 History megestrol 20 mg tablet 20 mg PO BID #19 tabs Unknown Rx multivitamin (Daily Multi-Vitamin 1 tab PO DAILY 10/0210/01/24 History tablet) sertraline 100 mg tablet 150 mg PO DAILY 10/02/2402/16 History Allergy/AdvReac Type Severity Reaction Status Date / Time tree and shrub pollen Allergy Mild Other Verified 10/02/24 10:57 weed pollen Allergy Mild Other Verified 10/02/24 10:57 Family History Grandmother Breast cancer, Onset Age: 45 Maternal Grandfather Myocardial infarction, Onset Age: 51 Maternal Mother Thyroid disorder hypothyroid Surgical History (Updated 10/02/24 @ 11:42 by Mari Prado) H/O dilation and curettage History of wisdom tooth extraction History of ankle surgery Social History adopted: No household members: spouse and other details: Partial custody of 3 step children housing: house number of children: 3 current occupational status: employed 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 current occupational exposures/hazards: No pets and animals: Yes (Avoid litterbox) pets and animals: cat(s), dog(s), turtle(s) and farm animals history of recent travel: No sexually active: Yes Smoking Status: Never smoker alcohol intake: current alcohol intake frequency: a few times a month details: not while substance use type: does not use well-balanced diet: daily or most days caffeine: No eating out: 1-3 times/week during the past year weight has: increased > 10 lbs what type of physical activity do you participate in: walking frequency: 3-4 times per week duration: 15-30 minutes/day tanika/confucianism: Druze seatbelt use: always do you feel safe at home: Yes 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 ROS ROS ED Constitutional Constitutional ED: Denies chills, fever(s) or sweats ENT ENT ED: Denies sore throat Cardiovascular Cardiovascular: Denies chest pain, leg edema, palpitations or racing heartbeat Respiratory/Chest Respiratory/Chest: Denies cough, dyspnea or dyspnea on exertion Gastrointestinal Gastrointestinal: Denies abdominal pain, diarrhea, nausea or vomiting Genitourinary Genitourinary ED: Reports other Details: Vaginal bleeding with pelvic cramping ; Denies dysuria, hematuria or urinary frequency Musculoskeletal Musculoskeletal: Denies back pain, extremity pain or neck pain Integumentary Denies rash or wounds Neurologic Neurologic: Denies headache(s), paresthesias or weakness EXAM Physical Exam Const Vital Signs: 10/02/24 10:57 10/02/24 12:57 10/02/24 13:58 Temperature 97.3 F L 97.8 F Temperature Source Temporal Pulse Rate 79 66 81 Respiratory Rate 14 17 17 Blood Pressure 139/89 H 112/75 121/78 H Blood Pressure Mean 105 87 92 Pulse Ox 98 100 100 Oxygen Delivery Method Room Air Positive well nourished and well developed General Appearance ED: well developed and NAD HEENT Reports moist mucous membranes normocephalic and atraumatic Eyes General Eye ED: Yes normal appearance of both eyes; Negative for pale conjunctiva Neck full ROM Chest Wall Chest: Negative for tenderness Resp normal respiratory effort and normal air movement Effort and Inspection: symmetric chest movement; Negative for respiratory distress Cardio regular rate, regular rhythm and no murmurs Peripheral Pulses: pulses 2+ throughout GI normal to inspection, nondistended, normoactive bowel sounds and non-tender Palpation: Negative for guarding or rebound tenderness present Extremity normal to inspection General Extremety ED: Negative for edema or tenderness General Extremity: Negative for edema Neuro oriented x3 and no sensory deficits noted Sensorium / Orientation: awake and alert Skin no rashes or lesions noted and no wounds MDM MDM MDM Narrative Medical decision making narrative: Interventions / MDM: Differential diagnosis: Dysfunctional uterine bleeding Diagnosis considered but do not suspect: Anemia however labs are normal. My EKG interpretation: Sinus rate of 70, no ST or T wave changes QTc 419. Imaging independently reviewed and interpreted by myself: Pelvic ultrasound: No acute process, endometrium thickness 2.9 mm. External documents reviewed: N/A Test considered but not ordered:N/A ED course: Vital stable no focal deficits. No clinical anemia. Increasing vaginal bleeding sent in by her gynecology team. Will check EKG, CBC, hCG. Will obtain pelvic ultrasound. Will plan to discuss with her gynecology team. EKG normal labs stable hemoglobin 13.4. Patient returned from ultrasound reported that she had 1 Change of pad on return from ultrasound. None since then.vitals are stable. I discussed with her malthouse laborer Dr. Pineda, will start her on Megace 20 mg twice daily for the next 10 days will hold her progesterone. She will follow-up in the office. Discussed return precautions. All questions were answered. Re-evaluation: stable Disposition discussed with patient/family/significant other: Case discussed with consulting clinician: Gynecology This note was generated with [employer] dictation software. It may contain incorrect words, spelling, and punctuation that were not noted in checking the note before signing. Lab Data Attestation: I reviewed the patient's lab results. Labs: Laboratory Results - last 24 hr 10/02/24 12:00 WBC 10.3 RBC 4.66 Hgb 13.4 Hct 39.8 MCV 85.4 MCH 28.8 MCHC 33.7 RDW Std Deviation 38.9 RDW Coeff of Parth 12.5 Plt Count 271 MPV 11.3 Immature Gran % (Auto) 0.400 Neut % (Auto) 69.2 Lymph % (Auto) 23.0 [place]ett % (Auto) 5.3 Eos % (Auto) 1.7 Baso % (Auto) 0.4 Absolute Neuts (auto) 7.1 Absolute Lymphs (auto) 2.37 Nucleated RBC % 0 Serum , Qual NEGATIVE Radiography Diagnostic Testing: Clinical Impression(s) from Imaging Studies Transvaginal US 10/02/24 11:13 IMPRESSION: Unremarkable examination. Reading Location: [place] [address] Discharge Plan Triage Chief Complaint: Vag Bleeding ED Provider: Benito Terry Dx/Rx/DC Orders Clinical Impression: DUB (dysfunctional uterine bleeding), Lightheaded Instructions: ED Dysfunctional Uterine Bleeding Prescriptions: New megestrol 20 mg tablet 20 mg PO BID Qty: 19 0RF No Action letrozole 2.5 mg tablet 2.5 mg PO DAILY Qty: 5 2RF Patient Comments: PT IS NOT TAKING RIGHT NOW DUE TO BLEEDING. ONLY TAKES WHEN SHE HAS A REGULAR CYCLE. Rx Instructions: Take cycle days 3-7 albuterol sulfate [Ventolin HFA] 1 INHALER inhaler 1 - 2 puff inhalation Q4H PRN (Reason: sob) medroxyprogesterone 10 mg tablet 10 mg PO DAILY AISHA & D-CHIRO 4 cap PO DAILY Rx Instructions: 2000MG OF AISHA AND 50MG OF D-CHIRO multivitamin [Daily Multi-Vitamin] Tablet 1 tab PO DAILY sertraline 100 mg tablet 150 mg PO DAILY Primary Care Provider: Carolina Schmitz Referrals: Isaura Song DO [Med Staff - Active Staff] - 1 Week Carolina Schmitz AIRPLANE CABIN ATTENDANT-C [Primary Care Provider] - Activity Restrictions/Additional Instructions: Your hemoglobin 13.3. EKG normal. hCG negative. Ultrasound normal. Discussed with Dr. Pineda. Stop your progesterone at this time. Take Megace as prescribed for the next 10 days. Call the office for follow-up. Print Language: Yakut Disposition Disposition: Home, Self Care Discharge Date/Time: 10/02/24 13:59
[2024-10-02 12:03] LABS: Absolute Lymphocyte Count 2.37 X10^3/uL (0.83-4.51); Absolute Neutrophil Count 7.1 X10^3/uL (2.0-7.7); Basophil# 0.04 X10^3/uL; Basophil% 0.4 % (0-1); Eosinophil# 0.18 X10^3/uL; Eosinophils% 1.7 % (0-5); Hematocrit 39.8 % (37-47); Hemoglobin 13.4 g/dL (12.0-15.0); Lymphocyte # 2.37 X10^3/ul (0.83-4.51); Mean Corp Hgb Conc 33.7 g/dL (32-36); Mean Corpuscular Hgb 28.8 pg (27.0-32.0); Mean Corpuscular Volume 85.4 fL (81-99); Mean Platelet Vol. 11.3 fl (6.2-12.0); Monocyte# 0.55 X10^3/uL; Monocyte% 5.3 % (0-10); NRBC Flagged by Analyzer 0 % (0-5); Neutrophil # 7.12 X10^3/uL (2.7-7.7); Neutrophil % 69.2 % (47-70); Platelet Count 271 K/mm3 (150-450); RBC Distribution Width CV 12.5 % (11.6-14.6); RBC Distribution Width SD 38.9 fl (35.1-43.9); Red Blood Count 4.66 M/mm3 (4.2-5.4); White Blood Count 10.3 K/mm3 (4.4-11.0)
[2024-10-02 12:36] LABS: Internal QC Validated? YES +Cl - CLEAR BKGD; Pregnancy, Serum, hCG Quali. NEGATIVE Negative
[2024-10-02 12:57] VITALS: BP 112/75; PULSE 66; RESP 17; O2SAT 100
[2024-10-02] MEDS: Megestrol 40 MG Tablet 20 MG PO (13:54)
[2024-10-02 13:58] VITALS: BP 121/78; PULSE 81; RESP 17; TEMP 36.6; O2SAT 100
--- OUTSIDE RECORDS SUMMARY | 2024-10-02 23:10 | XMS RPT_ITS | CCD ---
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 0-10 [facility] Neutrophil percentageOrdered By: Benito Terry on 10-02-2024 Neutrophils/100 WBC (Bld) 69.2 % 47-70 [facility] Nucleated red blood cell per centageOrdered By: Benito Terry on 10-02-2024 Nucleated RBC/100 WBC (Bld) [Ratio] 0 % 0-5 [facility] Platelet countOrdered By: Chandra Terry on 10-02-2024 Platelets (Bld) [#/Vol] 271 10*3/uL 150-450 [facility] RBC Auto (Bld) [#/Vol]Ordere d By: Benito Terry on 10-02-2024 RBC (Bld) [#/Vol] 4.66 10*6/uL 4.2-5.4 [facility] Serum beta-hCG test, qualita tiveOrdered By: Benito Terry on 10-02-2024 Beta HCG ( test) Ql Negative [facility] White blood cell (WBC) count Ordered By: Benito Terry on 10-02-2024 WBC (Bld) [#/Vol] 10.3 10*3/uL 4.4-11.0 [facility] Extended Day Teacher Office Visit Reporton 09-11-2024 Extended Day Teacher Office Visit Report [facility]'s [address], [address] [place] [address] OFFICE VISIT Date of Service: 09/11/24 MR#: [id number] Acct: [id number] Name: DAVID CONTI Rep #: [id number] : 1995 Provider: Dr. Isaura Jasso DO Age/Sex: 29/F Location: [facility] Status: Signed Intake Vital Signs 07/13/24 10:42 09/11/24 10:00 Height 5 ft 4 in 5 ft 4 in Weight: 159 lb 169 lb 4 oz BMI 27.3 29.0 BP 138/92 H 130/83 H Intake Visit Reasons: Med Check Metal Tile Lather Required: No Is patient in pain?: No Allergies tree and shrub pollen Allergy (Mild, Verified 09/11/24 10:07) Other weed pollen Allergy (Mild, Verified 09/11/24 10:07) Other Medications ???Medication ???Instructions ???Recorded ???Confirmed ???Type albuterol sulfate 90 mcg/actuation 1 - 2 puff inhalation Q4H PRN GA N 07/15/14 09/11/24 History aerosol inhaler (Ventolin HFA) sob multivit-min no.71-iron fum 28 1 cap PO DAILY 06/15/24 09/11/24 H istory mg-folate no.1 1 mg-dha 300 mg capsule (PNV-Jackpot) sertraline 100 mg tablet 150 mg (1.5 x 100 mg) PO QDAY #45 08/14/24 09/11/24 Rx tabs letrozole 2.5 mg tablet 2.5 mg PO DAILY #5 tabs 09/11/24 0 09/11/24 Rx medroxyprogesterone 10 mg tablet 10 mg PO QDAY 7 days #7 tabs 09/1109/11/24 Rx medroxyprogesterone 10 mg tablet 20 mg (2 x 10 mg) PO QDAY 5 days 0 09/11/24 09/11/24 Rx #10 tabs Post menopausal: No Patient : No : No PFSH Medical History Wears contact lenses Wears glasses Depression Anxiety Injury of head and neck Loss of consciousness Non-smoker Seasonal allergies Vocal cord dysfunction History of miscarriage PCOS (polycystic ovarian syndrome) Anxiety and depression Fatigue Asthma Surgical History History of wisdom tooth extraction History of ankle surgery Family History Grandmother Breast cancer, Onset Age: 45 Maternal Grandfather Myocardial infarction, Onset Age: 51 Maternal Mother Thyroid disorder hypothyroid Social History adopted: No household members: spouse and other details: Partial custody of 3 step children housing: house number of children: 3 current occupational status: employed 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 current occupational exposures/hazards: No pets and animals: Yes (Avoid litterbox) pets and animals: cat(s), dog(s), turtle(s) and farm animals history of recent travel: No sexually active: Yes Smoking Status: Never smoker alcohol intake: current alcohol intake frequency: a few times a month details: not while substance use type: does not use well-balanced diet: daily or most days caffeine: No eating out: 1-3 times/week during the past year weight has: increased > 10 lbs what type of physical activity do you participate in: walking frequency: 3-4 times per week duration: 15-30 minutes/day tanika/anabaptism: Church seatbelt use: always do you feel safe at home: Yes 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 She took it for the recommended 10 days but startes spotting on day 5. She does not have any refills in the medication or the letrazole and is unsure what to do next . History 2 Elective abortions Hx Para 0 Spontaneous abortions 2 Hx # Term Pregnancies Ectopic pregnancies Hx # Pregnancies Multiple births # of living children 0 Past Pregnancies Del. Date Name GA/Weeks Outcome Route Bth Weight Infant Gen Labor Lgth Anesthesia Del Locatn Provider FOB Unknown February 2023 5 spontaneous 06/29/24 6 spontaneous Delivery Date: 06/29/24 Last Updated by: BELINDA Castro C w/SM ROS Const ROS Unobtainable: All systems reviewed are unremarkable except as noted in H Resp Resp: Reports system reviewed and no additional complaints, except as documented; Denies cough GI GI: Reports as per HPI Psych Psych: Reports system reviewed and no additional complaints, except as documented Exam Const General: cooperative, healthy appearing, comfortable and no acute distress Resp Effort Inspection: normal respiratory effort Skin General: no rashes or lesions noted Psych Appearance: grossly normal Speech and Movement: speech and movement normal Coding Level of Care Code Off vis,est,level 4 Diagnoses Infertility PCOS (polycystic ovarian syndrome) E28.2 Missed O02.1 Assessment and Lev (more content not included)... Normal [facility] Extended Day Teacher Office Visit Reporton 07-13-2024 Extended Day Teacher Office Visit Report [facility]'s [address], [address] [place] [address] OFFICE VISIT Date of Service: 07/13/24 MR#: [id number] Acct: [id number] Name: DAVID CONTI Rep #: [id number] : 1995 Provider: Dr. Fadumo gibbs MD Age/Sex: 29/F Location: [facility] Status: Signed Intake Vital Signs 06/29/24 12:02 07/13/24 10:40 07/13/24 10:42 Height 5 ft 4 in 5 ft 4 in 5 ft 4 in Weight: 159 lb BMI 27.3 BP 138/92 H Intake Visit Reasons: James CARMICHAEL Metal Tile Lather Required: No Is patient in pain?: Yes (some discomfort in the ramin area) Allergies tree and shrub pollen Allergy (Mild, Verified 06/29/24 12:16) Other weed pollen Allergy (Mild, Verified 06/29/24 12:16) Other Medications ???Medication ???Instructions ???Recorded ???Confirmed ???Type albuterol sulfate 90 mcg/actuation 1 - 2 puff inhalation Q4H PRN GA N 07/15/14 07/13/24 History aerosol inhaler (Ventolin HFA) sob multivit-min no.71-iron fum 28 1 cap PO DAILY 06/15/24 07/13/24 H istory mg-folate no.1 1 mg-dha 300 mg capsule (PNV-Jackpot) letrozole 2.5 mg tablet 2.5 mg PO DAILY #5 tabs 07/13/24 0 07/13/24 Rx medroxyprogesterone 10 mg tablet 10 mg PO QDAY 10 days #10 tabs 07/13/24 Rx sertraline 100 mg tablet 100 mg PO QDAY #30 tabs 07/13/24 0 07/13/24 Rx Is last menstrual period known: No Post menopausal: No Patient : No : No PFSH Medical History Wears contact lenses Wears glasses Depression Anxiety Injury of head and neck Loss of consciousness Non-smoker Seasonal allergies Vocal cord dysfunction History of miscarriage PCOS (polycystic ovarian syndrome) Anxiety and depression Fatigue Asthma Surgical History History of wisdom tooth extraction History of ankle surgery Family History Grandmother Breast cancer, Onset Age: 45 Maternal Grandfather Myocardial infarction, Onset Age: 51 Maternal Mother Thyroid disorder hypothyroid Social History adopted: No household members: spouse and other details: Partial custody of 3 step children housing: house number of children: 3 current occupational status: employed 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 current occupational exposures/hazards: No pets and animals: Yes (Avoid litterbox) pets and animals: cat(s), dog(s), turtle(s) and farm animals history of recent travel: No sexually active: Yes Smoking Status: Never smoker alcohol intake: current alcohol intake frequency: a few times a month details: not while substance use type: does not use well-balanced diet: daily or most days caffeine: No eating out: 1-3 times/week during the past year weight has: increased > 10 lbs what type of physical activity do you participate in: walking frequency: 3-4 times per week duration: 15-30 minutes/day tanika/anabaptism: Church seatbelt use: always do you feel safe at home: Yes 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 History 2 Elective abortions Hx Para 0 Spontaneous abortions 2 Hx # Term Pregnancies Ectopic pregnancies Hx # Pregnancies Multiple births # of living children 0 Past Pregnancies Del. Date Name GA/Weeks Outcome Route Bth Weight Infant Gen Labor Lgth Anesthesia Del Locatn Provider FOB Unknown February 2023 5 spontaneous 06/29/24 6 spontaneous Delivery Date: 06/29/24 Last Updated by: Windy Fiore, BELINDA Ramirez C w/SM ROS Const Constitutional: Denies fatigue, fever(s), headache(s), increased appetite, poor appetite, weight gain or weight loss Cardio Card: Denies chest pain Resp Resp: Denies cough or dyspnea GI GI: Reports as per HPI; Denies abdominal pain, constipation, nausea or vomiting : Reports as per HPI; Denies difficulty voiding, dysuria, nipple discharge, urinary frequency, urinary incontinence, urinary hesitancy, urinary urgency, vaginal discharge, vaginal dryness, vaginal odor or vaginal prur itus Skin Skin/Breast: Denies change in hair, breast mass, breast pain, breast skin changes or nipple discharge Exam Const General: cooperative, healthy appearing, comfortable, no acute distress and well developed Nutritional Appearance: average body habitus Orientation: alert HENMT Head: normal to inspection and normocephalic Neck Neck: normal visual inspection and tra (more content not included)... Normal [facility] CBC-Complete Blood Cnt No Di ffon 06-29-2024 Erythrocyte distribution width (RBC) [Ratio] 12.1 % Normal 11.6-14.6 [facility] Comment on above: Performed By: #### L 100.0500, BTS #### [facility] [address] [place], [address] Hematocrit (Bld) [Volume fraction] 37.2 % Normal 37-47 [facility] Comment on above: Performed By: #### L 100.0500, BTS #### [facility] [address] [place], [address] Hemoglobin (Bld) [Mass/Vol] 12.7 g/dL Normal 12.0-15. 0 [facility] Comment on above: Performed By: #### L 100.0500, BTS #### [facility] [address] [place], [address] MCH (RBC) [Entitic mass] 28.9 pg Normal 27.0-32.0 [facility] Comment on above: Performed By: #### L 100.0500, BTS #### [facility] [address] [place], [address] MCHC (RBC) [Mass/Vol] 34.1 g/dL Normal 32-36 [facility] Comment on above: Performed By: #### L 100.0500, BTS #### [facility] [address] [place], [address] MCV (RBC) [Entitic vol] 84.5 fL Normal 81-99 [facility] Comment on above: Performed By: #### L 100.0500, BTS #### [facility] [address] [place], [address] Platelet mean volume (Bld) [Entitic vol] 11.2 fL Normal 6.2-12.0 [facility] Comment on above: Performed By: #### L 100.0500, BTS #### [facility] [address] [place], [address] Platelets (Bld) [#/Vol] 340 10*3/uL Normal 150-450 [facility] Comment on above: Performed By: #### L 100.0500, BTS #### [facility] [address] [place], [address] RBC (Bld) [#/Vol] 4.40 10*6/uL Normal 4.2-5.4 [facility] Comment on above: Performed By: #### L 100.0500, BTS #### [facility] [address] [place], [address] RDW SD 36.8 fl Normal 35.1-43.9 [facility] Comment on above: Performed By: #### L 100.0500, BTS #### [facility] [address] [place], [address] WBC (Bld) [#/Vol] 9.0 10*3/uL Normal 4.4-11.0 [facility] Comment on above: Performed By: #### L 100.0500, BTS #### [facility] [address] [place], [address] Discharge Instructionon 03-0 Discharge Instruction [facility] Medical Records Department [address] [place] [address] Instructions for Home/Discharge Instructions 06/29/24 1459 MR#: [id number] Acct: [id number] Name: DAVID CONTI Rep #: [id number] : 1995 28 From: Fadumo Barreto MD PCP: TOMAS Roth Status:REG SDC Discharge Instructions Diet Discharge Diet: No restrictions DC O2, CPAP, BIPAP needs Home O2 Discharge instructions: No Dressing / Incision Discharge Activity: Return to Normal Activity, May Shower and May Take a Tub Bath (after 1 week) May resume sexual activity in: 1-2 weeks Weight Bearing Status: Weight bearing as tolerated Lifting Restrictions: none Dressing / Incision Call your doctor if you observe: Fever of 101 or Higher, Using more than 1 pad per hour, Shortness of breath and Uncontrolled pain Follow Up Care Please Follow Up With: Fadumo Barreto MD When: Call [phone] to schedule appointment. Test Results: Test results from this visit will be discussed in further detail at your follow-up appointment, if applicable. Discharge Plan Admission Attending Provider: Fadumo Barreto Primary Care Provider: Joaquina Morales Instructions Print Language: Nepali Discharge Orders/Prescription s Prescriptions: No Action PNV-Jackpot 28-1-300 mg capsule 1 cap PO DAILY sertraline [Zoloft] 50 mg tablet 50 mg PO QDAY Qty: 60 3RF albuterol sulfate [Ventolin HFA] 1 INHALER inhaler 1 - 2 puff inhalation Q4H PRN PRN (Reason: sob) Referrals / Follow Up: Joaquina Morales, CHRISTOPH-C [Primary Care Provider] - Disposition Disposition (needs filled in before D/C Order can be placed): Home, Self Care 06/29/24 1500 Fadumo Barreto MD CC: UI APPLICATION DEVELOPER-C Joaquina Morales Signed Normal [facility] Erythrocyte distribution wid th ratioOrdered By: Fadumo Barreto on 06-29-2024 Erythrocyte distribution width (RBC) [Ratio] 12.1 % 11.6-14.6 [facility] Erythrocyte distribution wid th standard deviationOrdered By: Fadumo Barreto on 06-29-2024 Erythrocyte distribution width (RBC) [Entitic vol] 36.8 fL 35.1-43.9 [facility] Erythrocyte distribution width (RBC) [Ratio] 36.8 fl 35.1-43.9 [facility] H AND P Exam - OB/GYNon 03-0 H&P Exam - 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 patient denies any significant crmaping or pain no fevers. PFSH PFSH Medical History Wears contact lenses Wears glasses Depression Anxiety Injury of head and neck Loss of consciousness Non-smoker Seasonal allergies Vocal cord dysfunction History of miscarriage PCOS (polycystic ovarian syndrome) Anxiety and depression Fatigue Asthma Home Medications ???Medication ???Instructions ???Recorded ???Last Taken ???Type albuterol sulfate 90 mcg/actuation 1 - 2 puff inhalation Q4H PRN GA N 07/15/14 Unknown History aerosol inhaler (Ventolin HFA) sob multivit-min no.71-iron fum 28 1 cap PO DAILY 06/15/24 Unknown Hi story mg-folate no.1 1 mg-dha 300 mg capsule (PNV-Jackpot) sertraline 50 mg tablet (Zoloft) 50 mg PO QDAY #60 tabs 06/21/24 Un known Rx Allergy/AdvReac Type Severity Reaction Status Date / Time tree and shrub pollen Allergy Mild Other Verified 06/29/24 12:16 weed pollen Allergy Mild Other Verified 06/29/24 12:16 Family History Grandmother Breast cancer, Onset Age: 45 Maternal Grandfather Myocardial infarction, Onset Age: 51 Maternal Mother Thyroid disorder hypothyroid Surgical History History of wisdom tooth extraction History of ankle surgery Social History adopted: No household members: spouse and other details: Partial custody of 3 step children housing: house number of children: 3 current occupational status: employed 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 current occupational exposures/hazards: No pets and animals: Yes (Avoid litterbox) pets and animals: cat(s), dog(s), turtle(s) and farm animals history of recent travel: No sexually active: Yes Smoking Status: Never smoker alcohol intake: current alcohol intake frequency: a few times a month details: not while substance use type: does not use well-balanced diet: daily or most days caffeine: No eating out: 1-3 times/week during the past year weight has: increased > 10 lbs what type of physical activity do you participate in: walking frequency: 3-4 times per week duration: 15-30 minutes/day tanika/anabaptism: Church seatbelt use: always do you feel safe at home: Yes 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 Date Name GA/Weeks Outcome Route Bth Weight Gen Labor Lgth Anesthesia Del Locatn Provider FOB Unknown February 2023 5 spontaneous 06/29/24 6 spontaneous Delivery Date: 06/29/24 Last Updated by: BELINDA Castro C w/SM ROS Constitutional Constitutional: Reports systems reviewed and no addt'l complaints, except as documented; Denies as per HPI, change in weight, fatigue, fever(s), malaise, weakness or other Eyes Eyes: Reports systems reviewed and no addt'l complaints, except as documented; Denies as per HPI, change in vision or other ENT HEENT: Reports systems reviewed and no addt'l complaints, except as documented Respiratory/Chest Respiratory/Chest: Reports systems reviewed and no addt'l complaints, except as documented Gastrointestinal Gastrointestinal: Reports systems reviewed and no addt'l complaints, except as documented and as per HPI Genitourinary Genitourinary: Reports as per HPI Musculoskeletal Musculoskeletal: Reports systems reviewed and no addt'l complaints, except as documented Neurologic Neurologic: Reports systems reviewed and no addt'l complaints, except as documented Psychiatric Psychiatric: Reports systems reviewed and no addt'l complaints, except as documented Endocrine Endocrinology: Reports systems reviewed and no addt'l complaints, except as documented Hematologic/Lymphat ic Hematologic/Lymphat ic: Reports systems reviewed and no addt'l complaints, except as documented Vital Signs Vital Signs Vital Signs: 06/29/24 12:02 06/29/24 12:02 Temperature 99.2 (more content not included)... Normal [facility] Hematocrit Auto (Bld) [Volum e fraction]Ordered By: Fadumo Barreto on 06-29-2024 Hematocrit (Bld) [Volume fraction] 37.2 % 37-47 [facility] Hemoglobin measurementOrdere d By: Fadumo Barreto on 06-29-2024 Hemoglobin (Bld) [Mass/Vol] 12.7 g/dL 12.0-15. 0 [facility] MCV (mean corpuscular volume ) determinationOrdered By: Fadumo Barreto on 06-29-2024 MCV (RBC) [Entitic vol] 84.5 fL 81-99 [facility] MR/POSTOP.ANEon 06-29-2024 MR/POSTOP.[facility] Medical Records Department [address] [place] [address] Anesthesia Postop Eval I 06/29/24 1524 MR#: [id number] Acct: [id number] Name: DAVID CONTI Rep #: [id number] : 1995 28 From: Eriberto Handy CRNA PCP: Joaquina Morales NP-C Status:[facility] Y Race: C [place] [facility] Anesthesia: Postop Eval I Current Vital Signs Temperature: 97.1 F Pulse Rate: 81 Blood Pressure: 105/52 Respiratory Rate: 20 Pulse Ox: 98 Oxygen Delivery Method: Room Air Assessment Airway patent: Yes Spontaneous unlabored respirations: Yes Mental status: Awake and Calm nausea: No Vomiting: No Anesthesia Complication: No Fluid Hydration Crystalloid volume administer (ml): 250 Total IV fluid infused: 250 Progress Note Anesthesia document: Postop Eval 1 completed: Yes 08/13/24 1240 Date Eribertopapa Oquendoley ELEVATOR EXAMINER Cosigner Signature: Date CC: Signed Normal [facility] MR/[id number] 06-29-2024 [facility] Medical Records Department [address] [place] [address] Anesthesia Postop Eval II 06/29/24 1530 MR#: [id number] Acct: [id number] Name: DAVID CONTI Rep #: [id number] : 1995 28 From: Bay Solares MD PCP: Joaquina Morales NP-C Status:REG [facility] Y Race: C Location: [place] [address] Anesthesia Postop Eval I Sum Postop Eval Completion status Anesthesia document: Postop Eval 1 completed: Yes Anesthesia Postop Eval I Summary Anesthesia Postop Eval I Summary: Anesthesia Postop Eval I: Assessment Summary Airway patent Yes 06/29/24 15:25 ELEVATOR [email or web address] Spontaneous unlabored Yes 06/29/24 15:25 ELEVATOR [email or web address] respirations Mental status Awake,Calm 06/29/24 15:25 ELEVATOR [email or web address] nausea No 06/29/24 15:25 ELEVATOR [email or web address] Vomiting No 06/29/24 15:25 ELEVATOR [email or web address] Anesthesia Postop Eval I: Fluid Summary Crystalloid volume administer 250 06/29/24 15:25 ELEVATOR [email or web address] (ml) Colloids volume administered ( ml) Blood Product volume administered (ml) Total IV fluid infused 250 06/29/24 15:25 ELEVATOR [email or web address] Anesthesia Postop Eval I: Summary Notes Anesthesia Complication No 06/29/24 15:25 ELEVATOR [email or web address] Anesthesia Complication Comment: Post-operative progress note Anesthesia: Postop Eval II Evaluation Mental status: Awake Pain Level: 0 nausea: No Vomiting: No 06/29/24 1531 Date Bay Dinh Signature: Date CC: Signed Normal [facility] Mean corpuscular hemoglobin (MCH) determinationOrdered By: Fadumo Barreto on 06-29-2024 MCH (RBC) [Entitic mass] 28.9 pg 27.0-32.0 [facility] Mean corpuscular hemoglobin concentration (MCHC) determinationOrdered By: Fadumo Barreto on 06-29-2024 MCHC (RBC) [Mass/Vol] 34.1 g/dL 32-36 [facility] Mean platelet volume determi nationOrdered By: Fadumo Barreto on 06-29-2024 Platelet mean volume (Bld) [Entitic vol] 11.2 fL 6.2-12.0 [facility] Operative Reporton Operative Report [facility] Medical Records Department [address] [place] [address] Operative Report 06/29/24 1457 MR#: [id number] Acct: [id number] Name: DAVID CONTI Rep #: [id number] : 1995 28 From: Fadumo Barreto MD PCP: TOMAS Roth Status:[facility] Location[place] [facility] Problems Associated Problem List Diagnoses (1) Missed : Procedures Urinary/Genital 52xxx-59xxx: 02306 Trmt of incomplete Ab, any TM Operative Report (Standard) Operative Information Date of Procedure: 06/29/24 Pre-Operative Diagnosis: see problem list comments Post-Operative Diagnosis: same Surgery/Procedure Performed: suction dilation and curettage brake coupler road freight: No Type of Anesthesia: IV Sedation and Local RN Documented Start/Stop Times: Operation Date: 06/29/24 13:30 Case Time Into Pre-Op 06/29/24 11:43 Out of Pre-Op 06/29/24 14:49 Anesthesia Start 06/29/24 14:52 Into Room 06/29/24 14:52 Procedure Start 06/29/24 15:04 Procedure End 06/29/24 15:10 Anesthesia End 06/29/24 15:15 Out of Room 06/29/24 15:15 Into Recovery 06/29/24 15:17 Into Phase II Recovery 06/29/24 15:46 Out of Recovery 06/29/24 15:46 Out of Phase II 06/29/24 16:24 Procedure Start Time: 15:04 Procedure Stop Time: 15:10 Select all DRAINS/GRAFTS/IMPLA NTS that apply: None Estimated Blood Loss: 50 Specimen collected: Yes Description of specimen(s) removed: retained POC Description of surgery: Patient was taken to the operating room and placed under MAC local anesthesia. She was prepped and draped in the normal sterile fashion the dorsal lithotomy position. Bladder was drained of clear urine and anterior lip of the cervix was grasped and the uterus sounded to 9. Cervix was progressively dilated to allow passage of a 9mm suction curette. Progressive passes were made removing the retained products of conception without complication. Sharp curettage confirmed complete removal of the retained products. All instruments were removed from the vagina and excellent hemostasis was noted and the patient was taken to recovery in stable condition. Surgical Findings: 6 weeks miscarriage Complications Complications: No 06/29/24 1729 Cosigner Signature (if applicable): CC: TOMAS Morales; Dr. Fadumo Barreto MD Signed Normal [facility] Platelet countOrdered By: Poonam Barreto on 06-29-2024 Platelets (Bld) [#/Vol] 340 10*3/uL 150-450 [facility] RBC Auto (Bld) [#/Vol]Ordere d By: Fadumo Barreto on 06-29-2024 RBC (Bld) [#/Vol] 4.40 10*6/uL 4.2-5.4 [facility] Surgery Specimen Level Bernard 06-29-2024 Surgery Specimen Level IV ----- Patient Age/Sex Location Account Attending Physician GALLITODAVID LUTHER [facility] [id number] Dr. Fadumo Barreto MD Specimen: [id number] Received: 06/29/24 Status: NARA Boyle Num: [id number] Spec Type: PROD CONC Subm Dr: Dr. Fadumo Barreto MD HEADER OPERATION: Dilation and curettage, suction PRE-OP DIAGNOSIS: Missed TISSUE SUBMITTED: Products of conception MICROSCOPIC DIAGNOSIS Uterine contents, suction D C: * Immature chorionic villi, decidua and secretory endometrium, consistent with products of conception. MICROSCOPIC DESCRIPTION Slides are reviewed. GROSS DESCRIPTION Received in fixative is one container labeled with the patient's name and designated Products of conception. The specimen is received in a suction device and consists of multiple fragments of anders-talavera spongy to mucoid soft tissue measuring 7 x 5 x 0.8cm in aggregate. Possible villi are identified, but no parts are identified. RS3 mr 07/02/2024 [facility]: [id number] Patient Age/Sex Location Account Attending Physician DAVID CONTI / [facility] [id number] Dr. Fadumo Barreto MD Signed (signatur e on file) Dr. Ingrid Doshi MD 07/04/24 0932 Normal [facility] Comment on above: Performed By: #### B TS, L700.8000 #### [facility] [address] [place], [place], [address] Type AND Screenon 06-29-2024 ABO and Rh group Nom (Bld) Blood group O Rh(D) positive Normal [facility] Comment on above: Order Comment: Reaso n for Laboratory Test pre opt Performed By: #### B TS, L700.8000 #### [facility] [address] [place], [place], [id number] White blood cell (WBC) count Ordered By: Fadumo Barreto on 06-29-2024 WBC (Bld) [#/Vol] 9.0 10*3/uL 4.4-11.0 [facility] Transvaginal w/Preg USon Transvaginal w/Preg US [facility] Imaging Services [address] [place], [place] [address] Transvaginal w/Preg US MR#: [id number] Acct: [id number] Name: DAVID CONTI Rep #: [id number] : 1995 F 28 From: Lui dickens MD PCP: TOMAS Roth Status: REG CLI Study: Transvaginal w/Preg US Date of Exam: 06/28/24 Exam# [id number] Ordering Dr: Nikole Chang CNM PROCEDURE: TRANSVAGINAL W/PREG US REASON FOR EXAM: Viability. Irregular menses. COMPARISON: None FINDINGS: Comments: LMP: April 18, 2024. Number of Gestational Sacs: 1. It measures 1.9 cm corresponding to a gestational age of 6 weeks and 6 days. Gestational Sac Shape: Normal Number of Fetuses: 1 Heart Rate: Not detected at this time. (Average) Yolk Sac: Present and unremarkable. Placenta: Presently not well-visualized Amniotic Fluid Volume: Subjectively normal for gestational age. Uterine Abnormalities: Maternal uterus is unremarkable. Ovaries / Adnexa: Both maternal ovaries are visualized and unremarkable. DIMENSIONS: Parameter Measurement / EGA [place] Rump Length: 4 mm/6 weeks and 2 days Gestational Sac: 1.9 cm/6 weeks and 6 days Yolk Sac: 3 mm/ ESTIMATED GESTATIONAL AGE: By Ultrasound: 6 weeks 4 days. By LMP: Unknown. ESTIMATED DATE OF DELIVERY: By Ultrasound: February 17, 2025. By LMP: US/Transvaginal w/Preg US IMPRESSION: Single intrauterine gestation with a mean gestational age of 6 weeks and 4 days. No cardiac activity detected at this time. Follow-up recommended. Reading Location: MICHELLE CC: ALIX Chang; TOMAS Morales Cpa Tax: Signed Normal [facility] Chlamydia/GC SULEMA aptimaon CHLAMY,NUC ACID Negative Normal Negative [facility] Comment on above: Performed By: #### Martine SHAH, L700.8000 #### [facility] [address] [place], [address] GC BY NUC ACID Negative Normal Negative [facility] Comment on above: Result Comment: Perf ormed at: =G - [facility] [address] [id number] Weatherization Coordinator: Malika Thompson MD, Phone: [phone] Performed By: #### Martine SHAH, L700.8000 #### [facility] [address] [place] [place], [address] HCG ( test) QlOrder ed By: Isaura Evans on 06-25-2024 Human Chorionic Gonadotropin, Quant 46913 mIU/mL High <9 [facility] Comment on above: Gestational Age0.2-1 Week: 5-50 mIU/mL1-2 Weeks: 50-500 mIU/mL2-3 Weeks: 100-5000 mIU/mL3-4 Weeks: 500-10,000 mIU/mL4-5 Weeks:1000-50,000 mIU/mL5-6 Weeks: 10,000-100,000 mIU/mL6-8 Weeks: 15,000-200,000 mIU/mL2-3 Months:10,000-100,000 mIU/mL Extended Day Teacher Office Visit Reporton 06-25-2024 Extended Day Teacher Office Visit Report [facility] [address], [address] [place] [address] OFFICE VISIT Date of Service: 06/25/24 MR#: [id number] Acct: [id number] Name: DAVID CONTI Rep #: [id number] : 1995 Provider: Dr. Isaura Jasso DO Age/Sex: 28/F Location: [facility] Status: Signed Intake Vital Signs 06/21/24 10:50 06/25/24 13:01 06/25/24 13:01 Height 5 ft 4 in 5 ft 4 in 5 ft 4 in Weight: 165 lb BMI 28.3 BP 106/70 Intake Visit Reasons: discuss miscarriage. Metal Tile Lather Required: No Is patient in pain?: No Allergies tree and shrub pollen Allergy (Mild, Verified 06/25/24 13:00) Other weed pollen Allergy (Mild, Verified 06/25/24 13:00) Other Medications ???Medication ???Instructions ???Recorded ???Confirmed ???Type albuterol sulfate 90 mcg/actuation 1 - 2 puff inhalation Q4H PRN GA N 07/15/14 06/25/24 History aerosol inhaler (Ventolin HFA) sob multivit-min no.71-iron fum 28 cap PO 06/15/24 06/25/24 History mg-folate no.1 1 mg-dha 300 mg capsule (PNV-Jackpot) sertraline 50 mg tablet (Zoloft) 50 mg PO QDAY #60 tabs 06/21/24 Rx Last Menstrual Period: 04/18/24 : No PFSH PFSH Medical History Seasonal allergies Vocal cord dysfunction History of miscarriage PCOS (polycystic ovarian syndrome) Anxiety and depression Fatigue Asthma Surgical History History of wisdom tooth extraction History of ankle surgery Family History Grandmother Breast cancer, Onset Age: 45 Maternal Grandfather Myocardial infarction, Onset Age: 51 Maternal Mother Thyroid disorder hypothyroid Social History adopted: No household members: spouse and other details: Partial custody of 3 step children housing: house number of children: 3 current occupational status: employed 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 current occupational exposures/hazards: No pets and animals: Yes (Avoid litterbox) pets and animals: cat(s), dog(s), turtle(s) and farm animals history of recent travel: No sexually active: Yes Smoking Status: Never smoker alcohol intake: current alcohol intake frequency: a few times a month details: not while substance use type: does not use well-balanced diet: daily or most days caffeine: No eating out: 1-3 times/week during the past year weight has: increased > 10 lbs what type of physical activity do you participate in: walking frequency: 3-4 times per week duration: 15-30 minutes/day tanika/anabaptism: Church seatbelt use: always do you feel safe at home: Yes 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 Date Name GA/Weeks Outcome Route Bth Weight Infant Gen Labor Lgth Anesthesia Del Locatn Provider FOB Unknown February 2023 5 spontaneous HPI discuss miscarriage. Details: DAVID CONTI is a 28 year old who presents for routine OB visit. OB Visit ANGEL Calculator Estimated Delivery Date Method Current WG Current Estimate 02/13/25 Ultrasound #1 6w 5d Other Estimates 01/23/25 LMP (Certain) 9w 5d Expected Delivery Route/Plan Labor Preferences- CB/BF classes: [] labor support person: [] labor intervention preferences: [] pain management options preferred: [] cut cord/dad catch: [] : [] PP control planned: [] discussed possible routes of delivery and associated risks: [] special requests: [] Specific Issue/Plans Covid status: [] Flu vaccine: [] Tdap vaccine: [] Rhogam: [] LARC form signed: [] Problem list reviewed and updated with the most current plan of care details and appropriate orders placed. Relevant counseling for the gestational age provided. Continue routine care and follow up unless otherwise noted in visit notes/problem list details Initial Weight: 168 lb Date -???-???-???-???-?? ?-???-???-???-???-? ??-???-???- EGA Weight BP Urine Prot -???-???-???-???-?? ?-???-???-???-???-? ??-???-???- Glucose FHR FuHt Pres Dilation -???-???-???-???-?? ?-???-???-???-???-? ??-???-???- Effaced St Visit Note 06/21/24 -???-???-???-???-?? ?-???-???-???-???-? ??-???-???- 6w 1d 168 lb 4 oz (+4 oz) 124/77 -???-???-???-???-?? ?-???-???-???-???-? ??-???-???- 84 -???-???-???-???-?? ?-???-???-???-???-? ??-???-???- KW- CRL antoinette uring 6.1 weeks. JV scanned to confirm. RTO in KW- CRL (more content not included)... Normal [facility] Serum human chorionic gonado tropin detection for pregnancyOrdered By: Isaura Evans on 06-25-2024 HCG ( test) Ql [address]10 mIU/mL High <9 [facility] Comment on above: Gestational Age0.2-1 Week: 5-50 mIU/mL1-2 Weeks: 50-500 mIU/mL2-3 Weeks: 100-5000 mIU/mL3-4 Weeks: 500-10,000 mIU/mL4-5 Weeks:1000-50,000 mIU/mL5-6 Weeks: 10,000-100,000 mIU/mL6-8 Weeks: 15,000-200,000 mIU/mL2-3 Months:10,000-100,000 mIU/mL Type AND Screenon 06-25-2024 ABO and Rh group Nom (Bld) Blood group O Rh(D) positive Normal [facility] Comment on above: Order Comment: PN Performed By: #### Martine SHAH, L700.8000 #### [facility] [address] [place], [place], [address] hCG Titer Quant., Serumon HCG QUANT. 14033 mIU/mL High <9 non-preg [facility] Comment on above: Result Comment: Gest ational Age 0.2-1 Week: 5-50 mIU/mL 1-2 Weeks: 50-500 mIU/mL 2-3 Weeks: 100-5000 mIU/mL 3-4 Weeks: 500-10,000 mIU/mL 4-5 Weeks:1000-50,000 mIU/mL 5-6 Weeks: 10,000-100,000 mIU/mL 6-8 Weeks: 15,000-200,000 mIU/mL 2-3 Months:10,000-100,000 mIU/mL Performed By: #### Martine SHHA, L700.8000 #### [facility] [address] [place], [place], [address] HCG ( test) QlOrder ed By: Nikole Chang on 06-23-2024 Human Chorionic Gonadotropin, Quant 93681 mIU/mL High <9 [facility] Comment on above: Gestational Age0.2-1 Week: 5-50 mIU/mL1-2 Weeks: 50-500 mIU/mL2-3 Weeks: 100-5000 mIU/mL3-4 Weeks: 500-10,000 mIU/mL4-5 Weeks:1000-50,000 mIU/mL5-6 Weeks: 10,000-100,000 mIU/mL6-8 Weeks: 15,000-200,000 mIU/mL2-3 Months:10,000-100,000 mIU/mL Serum human chorionic gonado tropin detection for pregnancyOrdered By: Nikole Chang on 06-23-2024 HCG ( test) Ql 57250 mIU/mL High <9 [facility] Comment on above: Gestational Age0.2-1 Week: 5-50 mIU/mL1-2 Weeks: 50-500 mIU/mL2-3 Weeks: 100-5000 mIU/mL3-4 Weeks: 500-10,000 mIU/mL4-5 Weeks:1000-50,000 mIU/mL5-6 Weeks: 10,000-100,000 mIU/mL6-8 Weeks: 15,000-200,000 mIU/mL2-3 Months:10,000-100,000 mIU/mL hCG Titer Quant., Serumon HCG QUANT. 87842 mIU/mL High <9 non-preg [facility] Comment on above: Result Comment: Gest ational Age 0.2-1 Week: 5-50 mIU/mL 1-2 Weeks: 50-500 mIU/mL 2-3 Weeks: 100-5000 mIU/mL 3-4 Weeks: 500-10,000 mIU/mL 4-5 Weeks:1000-50,000 mIU/mL 5-6 Weeks: 10,000-100,000 mIU/mL 6-8 Weeks: 15,000-200,000 mIU/mL 2-3 Months:10,000-100,000 mIU/mL Performed By: #### L 700.8000 #### [facility] [address] [facility] [place], [place], [address] Urine Cultureon 06-22-2024 URC Culture exhibits no growth. Normal [facility] Comment on above: Performed By: #### B TS, L700.8000 #### [facility] [address] [facility] [place], [place], [address] C. trachomatis rRNA SULEMA+prob e Ql (Unsp spec)Ordered By: Nikole Chang on 06-21-2024 Chlamydia DNA (SULEMA) Negative Negative [facility] Chlamydia trachomatis rRNA d etection by probe and target amplification methodOrdered By: Nikole Chang on 06-21-2024 C. trachomatis rRNA SULEMA+probe Ql (Unsp spec) Negative Negative [facility] HCG ( test) QlOrder ed By: Nikole Chang on 06-21-2024 Human Chorionic Gonadotropin, Quant 21784 mIU/mL High <9 [facility] Comment on above: Gestational Age0.2-1 Week: 5-50 mIU/mL1-2 Weeks: 50-500 mIU/mL2-3 Weeks: 100-5000 mIU/mL3-4 Weeks: 500-10,000 mIU/mL4-5 Weeks:1000-50,000 mIU/mL5-6 Weeks: 10,000-100,000 mIU/mL6-8 Weeks: 15,000-200,000 mIU/mL2-3 Months:10,000-100,000 mIU/mL Neisseria gonorrhoeae nuclei c acid detection by amplified probe techniqueOrdered By: Nikole Chang on 06-21-2024 N. gonorrhoeae DNA SULEMA+probe Ql (Unsp spec) Negative Negative [facility] Comment on above: Performed at: =[address] [id number] Director: Malika Thompson MD, Phone: [phone] Extended Day Teacher Office Visit Reporton 06-21-2024 Extended Day Teacher Office Visit Report [facility] [address], [address] [place] [address] OFFICE VISIT Date of Service: 06/21/24 MR#: [id number] Acct: [id number] Name: DAVID CONTI Rep #: [id number] : 1995 Provider: ALIX Bell ams Age/Sex: 28/F Location: [facility] Status: Signed Intake Vital Signs 02/23/24 10:34 05/21/24 11:52 06/21/24 10:50 Height 5 ft 4 in 5 ft 4 in 5 ft 4 in Weight: 168 lb 4 oz BMI 28.8 BP 124/77 H Intake Visit Reasons: 9WK NOB LMP 04/18/24 Metal Tile Lather Required: No Is patient in pain?: No Feel stressed/tense/nerv ous/anxious/difficu lty sleeping: not at all Allergies tree and shrub pollen Allergy (Mild, Verified 06/21/24 10:55) Other weed pollen Allergy (Mild, Verified 06/21/24 10:55) Other Medications ???Medication ???Instructions ???Recorded ???Confirmed ???Type albuterol sulfate 90 mcg/actuation 1 - 2 puff inhalation Q4H PRN GA N 07/15/14 02/23/24 History aerosol inhaler (Ventolin HFA) sob multivit-min no.71-iron fum 28 cap PO 06/15/24 History mg-folate no.1 1 mg-dha 300 mg capsule (PNV-Jackpot) sertraline 50 mg tablet (Zoloft) 50 mg PO QDAY #60 tabs 06/21/24 Rx Last Menstrual Period: 04/18/24 Zika: Zika virus screening: Negative : Yes Have you fallen in the past year?: No PFSH PFSH Medical History Seasonal allergies Vocal cord dysfunction History of miscarriage PCOS (polycystic ovarian syndrome) Anxiety and depression Fatigue Asthma Surgical History History of wisdom tooth extraction History of ankle surgery Family History Grandmother Breast cancer, Onset Age: 45 Maternal Grandfather Myocardial infarction, Onset Age: 51 Maternal Mother Thyroid disorder hypothyroid Social History adopted: No household members: spouse and other details: Partial custody of 3 step children housing: house number of children: 3 service: No current occupational status: employed 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 current occupational exposures/hazards: No pets and animals: Yes (Avoid litterbox) pets and animals: cat(s), dog(s), turtle(s) and farm animals history of recent travel: No sexually active: Yes Smoking Status: Never smoker alcohol intake: current alcohol intake frequency: a few times a month details: not while substance use type: does not use well-balanced diet: daily or most days caffeine: No eating out: 1-3 times/week during the past year weight has: increased > 10 lbs what type of physical activity do you participate in: walking frequency: 3-4 times per week duration: 15-30 minutes/day tanika/anabaptism: Church seatbelt use: always do you feel safe at home: Yes 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 Date Name GA/Weeks Outcome Route Bth Weight Infant Gen Labor Lgth Anesthesia Del Locatn Provider FOB Unknown February 2023 5 spontaneous HPI 9WK NOB LMP 04/18/24 Details: DAVID CONTI is a 28 year old who presents for New OB visit. OB Visit ANGEL Calculator Estimated Delivery Date Method Current WG Current Estimate 02/13/25 Ultrasound #1 6w 1d Other Estimates 01/23/25 LMP (Certain) 9w 1d Comments: HIV: Urine Culture: Sequential Screen: NIPT Screen: Estimated Due Date: 01/23/25 Expected Delivery Route/Plan Labor Preferences- CB/BF classes: [] labor support person: [] labor intervention preferences: [] pain management options preferred: [] cut cord/dad catch: [] : [] PP control planned: [] discussed possible routes of delivery and associated risks: [] special requests: [] Specific Issue/Plans Covid status: [] Flu vaccine: [] Tdap vaccine: [] Rhogam: [] LARC form signed: [] Problem list reviewed and updated with the most current plan of care details and appropriate orders placed. Relevant counseling for the gestational age provided. Continue routine care and follow up unless otherwise noted in visit notes/problem list details Initial Weight: 168 lb Date -???-???-???-???-?? ?-???-???-???-???-? ??-???-???- EGA Weight BP Urine Prot -???-???-???-???-?? ?-???-???-???-???-? ??-???-???- Glucose FHR FuHt Pres Dilation -???-???-???-???-?? ?-???-???-???-???-? ??-???-???- Effaced St Visit Note (more content not included)... Normal [facility] Serum human chorionic gonado tropin detection for pregnancyOrdered By: Nikole Chang on 06-21-2024 HCG ( test) Ql 42924 mIU/mL High <9 [facility] Comment on above: Gestational Age0.2-1 Week: 5-50 mIU/mL1-2 Weeks: 50-500 mIU/mL2-3 Weeks: 100-5000 mIU/mL3-4 Weeks: 500-10,000 mIU/mL4-5 Weeks:1000-50,000 mIU/mL5-6 Weeks: 10,000-100,000 mIU/mL6-8 Weeks: 15,000-200,000 mIU/mL2-3 Months:10,000-100,000 mIU/mL Urine cultureOrdered By: Jere Chang on 06-21-2024 Bacteria identified Cx Nom (U) Culture exhibits no growth. [facility] Bacteria identified Cx Nom (U) Culture exhibits no growth. [facility] hCG Titer Quant., Serumon HCG QUANT. 72003 mIU/mL High <9 non-preg [facility] Comment on above: Result Comment: Gest ational Age 0.2-1 Week: 5-50 mIU/mL 1-2 Weeks: 50-500 mIU/mL 2-3 Weeks: 100-5000 mIU/mL 3-4 Weeks: 500-10,000 mIU/mL 4-5 Weeks:1000-50,000 mIU/mL 5-6 Weeks: 10,000-100,000 mIU/mL 6-8 Weeks: 15,000-200,000 mIU/mL 2-3 Months:10,000-100,000 mIU/mL Performed By: #### L 700.8000 #### [facility] [place], [address] HCG ( test) QlOrder ed By: Isaura Evans on 05-19-2024 Human Chorionic Gonadotropin, Quant 28 mIU/mL High <4 [facility] Comment on above: hCG levels with Gest ational AgeGestational Age hCG mIU/mL (IU/L)0.2 - 1 week 5 - 501-2 weeks 50 - 5002-3 weeks 100 - 43080-2 weeks 500 - 514047-6 weeks 1000 - 737318-5 weeks 30224 - 100,0006-8 weeks 73660 - 200,0002-3 months 82029 - 100,000 Serum human chorionic gonado tropin detection for pregnancyOrdered By: Isaura Evans on 05-19-2024 HCG ( test) Ql 28 mIU/mL High <4 [facility] Comment on above: hCG levels with Gest ational AgeGestational Age hCG mIU/mL (IU/L)0.2 - 1 week 5 - 501-2 weeks 50 - 5002-3 weeks 100 - 64774-4 weeks 500 - 729967-5 weeks 1000 - 939881-3 weeks 96515 - 100,0006-8 weeks 18344 - 200,0002-3 months 46160 - 100,000 hCG Titer Quant., Serumon HCG QUANT. 28 mIU/mL High 1-3 [facility] Comment on above: Order Comment: zulma tristan 48hr Result Comment: hCG levels with Gestational Age Gestational Age hCG mIU/mL (IU/L) 0.2 - 1 week 5 - 50 1-2 weeks 50 - 500 2-3 weeks 100 - 5000 3-4 weeks 500 - 08805 4-5 weeks 1000 - 35708 5-6 weeks 82075 - 100,000 6-8 weeks 27620 - 200,000 2-3 months 43276 - 100,000 Performed By: #### L 700.8000 #### [facility] [address] [place], [place] [address], [place], [address] HCG ( test) QlOrder ed By: Isaura Evans on 05-17-2024 Human Chorionic Gonadotropin, Quant 8 mIU/mL High <4 [facility] Serum human chorionic gonado tropin detection for pregnancyOrdered By: Isaura Evans on 05-17-2024 HCG ( test) Ql 8 mIU/mL High <4 [facility] hCG Titer Quant., Serumon HCG QUANT. 8 mIU/mL High 1-3 [facility] Comment on above: Performed By: #### L 700.8000 #### [facility] [address] [facility] [place], [place], [address] PROGESTERONE 4317on 05-09-19 25 PROGESTERONE 2.8 ng/mL Normal . [facility] Comment on above: Order Comment: N 21 day progesterone Result Comment: Foll icular phase 0.1 - 0.9 Luteal phase 1.8 - 23.9 Ovulation phase 0.1 - 12.0 First trimester 11.0 - 44.3 Second trimester 25.4 - 83.3 Third trimester 58.7 - 214.0 Postmenopausal 0.0 - 0.1 Performed at: [facility] [address] [place], [place] [id number] Weatherization Coordinator: Neil Henry PhD, Phone: [phone] Performed By: #### L 801.2600 #### [facility] [address] [facility] [place], [place], [address] Quantitative serum progester one measurement by electrochemiluminescence immunoassay (Ordered By: Samanta Jaramillo on 05-08-2024 Progesterone Level 2.8 ng/mL . [facility] Comment on above: Follicular phase 0.1 - 0.9 Luteal phase 1.8 - 23.9 Ovulation phase 0.1 - 12.0 First trimester 11.0 - 44.3 Second trimester 25.4 - 83.3 Third trimester 58.7 - 214.0 Postmenopausal 0.0 - 0.1Performed at: [facility] [id number] Director: Neil Henry PhD, Phone: [phone] PROGESTERONE 4317on 03-27-20 24 PROGESTERONE 0.2 ng/mL Normal . [facility] Comment on above: Order Comment: N 21 day progesterone [id number] Result Comment: Foll icular phase 0.1 - 0.9 Luteal phase 1.8 - 23.9 Ovulation phase 0.1 - 12.0 First trimester 11.0 - 44.3 Second trimester 25.4 - 83.3 Third trimester 58.7 - 214.0 Postmenopausal 0.0 - 0.1 Performed at: [facility] [id number] Weatherization Coordinator: Neil Henry PhD, Phone: [phone] Performed By: #### L 604.2604, B9801.4231 #### [facility] [address] [place], [address] PROLACTIN 4465on 03-27-2024 PROLACTIN 15.5 ng/mL Normal 4.8-33.4 [facility] Comment on above: Order Comment: Comme nts: Draw on 03/19/24 Result Comment: Perf ormed at: [facility] [id number] Weatherization Coordinator: Neil Henry PhD, Phone: [phone] Performed By: #### L 3100.5400 #### [facility] [address] [place], [address] Thyroid Peroxidase ABon 12-0 THYR PEROX AB < 9 Normal 0-34 [facility] Comment on above: Result Comment: Perf ormed at: [facility] [id number] Weatherization Coordinator: Neil Henry PhD, Phone: [phone] Performed By: #### L 076.2606, K0416.6668 #### [facility] [address] [place], [address] Prolactin [Mass/Vol]Ordered By: Kristina Cruz on 03-25-2024 Prolactin 15.5 ng/mL 4.8-33.4 [facility] Comment on above: Performed at: [facility] [id number] Director: Neil Henry PhD, Phone: [phone] Quantitative serum progester one measurement by electrochemiluminescence immunoassay (Ordered By: Samanta Jaramillo on 03-25-2024 Progesterone Level 0.2 ng/mL . [facility] Comment on above: Follicular phase 0.1 - 0.9 Luteal phase 1.8 - 23.9 Ovulation phase 0.1 - 12.0 First trimester 11.0 - 44.3 Second trimester 25.4 - 83.3 Third trimester 58.7 - 214.0 Postmenopausal 0.0 - 0.1Performed at: CB - [facility] [id number] [place], [place] [id number] Director: Neil Henry PhD, Phone: [phone] TPO Ab QnOrdered By: Samanta mondragon on 03-25-2024 Thyroid Peroxidase Antibodies < 9 IU/mL 0-34 [facility] Comment on above: Performed at: CB - [facility] [address] [id number] Director: Neil Henry PhD, Phone: [phone] L900.0111on 03-07-2024 REPROSOURCE SEE SCANNED REPORT Normal [facility] Comment on above: Performed By: #### B TS, L700.8000 #### [facility] [address] [place], [place], [address] No Panel InformationOrdered By: Samanta Jaramillo on 03-07-2024 Miscellaneous Test Comment SEE SCANNED REPORT [facility] PAP I-G w/rfx hrHPV-Aptimaon 03-01-2024 ADEQ Comment Normal . [facility] Comment on above: Order Comment: repea t 48hr Result Comment: Sati sfactory for evaluation. Endocervical and/or squamous metaplastic cells (endocervical component) are present. Performed By: #### L 700.8000 #### [facility] [address] [place], [place], [address] COMM . Normal . [facility] Comment on above: Order Comment: repea t 48hr Performed By: #### L 700.8000 #### [facility] [address] [place], [place], [address] COMMENT Comment Normal . [facility] Comment on above: Order Comment: repea t 48hr Result Comment: This liquid based ThinPrep(R) pap test was screened with the use of an image guided system. Performed By: #### L 700.8000 #### [facility] [address] [place], [place], [address] DIAG Comment Normal . [facility] Comment on above: Order Comment: repea t 48hr Result Comment: NEGA TIVE FOR INTRAEPITHELIAL LESION OR MALIGNANCY. Performed By: #### L 700.8000 #### [facility] [address] [place], [place], [address] HPV RFLX Comment Normal . [facility] Comment on above: Order Comment: repea t 48hr Result Comment: The HPV DNA reflex criteria were not met with this specimen result therefore, no HPV testing was performed. Performed at: [address] [id number] Weatherization Coordinator: Malika Thompson MD, Phone: [phone] Performed By: #### L 700.8000 #### [facility] [address] [place], [place], [address] PAPSMR Comment Normal . [facility] Comment on above: Order Comment: repea t 48hr Result Comment: The Pap smear is a screening test designed to aid in the detection of premalignant and malignant conditions of the uterine cervix. It is not a diagnostic procedure and should not be used as the sole means of detecting cervical cancer. Both false-positive and false-negative reports do occur. Performed By: #### L 700.8000 #### [facility] [address] [place], [place], [address] PERFORM Comment Normal . [facility] Comment on above: Order Comment: repea t 48hr Result Comment: Jesús Calderon Telephone Betting Clerk (ASCP) Performed By: #### L 700.8000 #### [facility] [address] [place], [place], [address] Genital Culture Comprehensiv nora 02-26-2024 VAC Reason for Exam: vaginal discharge Normal vaginal leatha isolated. No yeast, Gardnerella, Neisseria or beta-hemolytic Streptococcus isolated. Normal [facility] Comment on above: Performed By: #### L 700.8000 #### [facility] [address] [place], [address] Gram Stainon 02-23-2024 GS Reason for Exam: vaginal discharge Gram Stain 4+ Gram positive rods 1+ Gram positive rods No Gram negative diplococci Score = 1 Interpretation: 0-3 Normal, 4-6 Intermediate, 7-10 Positive BV Normal [facility] Comment on above: Performed By: #### L 700.8000 #### [facility] [address] [place], [address] Extended Day Teacher Office Visit Reporton 02-23-2024 Extended Day Teacher Office Visit Report [facility] [address], [address] [place] [address] OFFICE VISIT Date of Service: 02/23/24 MR#: [id number] Acct: [id number] Name: DAVID CONTI Rep #: [id number] : 1995 Provider: TOMAS Drummond Age/Sex: 28/F Location: [facility] Status: Signed Intake Vital Signs 02/16/24 09:32 02/23/24 10:33 02/23/24 10:34 Height 5 ft 4 in 5 ft 4 in 5 ft 4 in Weight: 157 lb BMI 26.9 BP 131/81 H Intake Visit Reasons: PAP only visit Metal Tile Lather Required: No Is patient in pain?: No Allergies No Known Allergies Allergy (Verified 02/23/24 10:33) Medications ???Medication ???Instructions ???Recorded ???Confirmed ???Type albuterol sulfate 90 mcg/actuation 1 - 2 puff inhalation Q4H PRN PRN 07/15/14 02/23/24 History aerosol inhaler (Ventolin HFA) sob bupropion HCl 300 mg 24 hr tablet, 300 mg PO QAM 02/13/24 02/23/24 History extended release docosahexaenoic acid 200 mg mg PO 02/13/24 02/23/24 History capsule ( DHA) medroxyprogesterone 10 mg tablet 10 mg PO QDAY 10 days #10 tabs 02/21/24 02/23/24 Rx Post menopausal: No Patient : No : No [facility] Medical History History of miscarriage PCOS (polycystic ovarian syndrome) Anxiety and depression Fatigue Asthma Surgical History History of wisdom tooth extraction History of ankle surgery Family History Grandmother Breast cancer Social History Smoking Status: Never smoker alcohol intake: current substance use type: does not use HPI PAP only visit Details: DAVID CONTI is a 28 year old who presents for repeat PAP; previous PAP completed a few weeks ago with inconclusive results. Reports no further issues or concerns today. She does report she did start the progesterone challenge yesterday with her first pill. ROS Const Constitutional: Reports system reviewed and no additional complaints, except as documented Eyes Eyes: Reports system reviewed and no additional complaints, except as documented GI GI: Denies abdominal pain or change in bowel habits : Reports as per HPI Exam Const General: cooperative, healthy appearing, comfortable, no acute distress, well groomed and well hydrated Nutritional Appearance: well nourished Orientation: alert, awake and oriented x3 Resp Effort Inspection: normal respiratory effort, able to speak in complete sentences and symmetric chest movement General: bladder normal to palpation External Female Exam: normal external appearance and normal appearance of the urethra Urethra: normal appearance of the urethra Speculum Exam - Vagina: normal appearance of the vagina, abnormal vaginal discharge (thick/clumpy) white, no lesions and nontender Speculum Exam - Cervix: normal appearance of the cervix, no lesions and no masses Bimanual Exam- Vagina Uterus: normal bimanual exam, uterine size normal, bladder normal to palpation, normal palpation and non-tender Bimanual Exam- Adnexa, other: normal adnexae, no masses, normal and non-tender Pelvic Support: normal Skin General: no rashes or lesions noted Neuro General: patient alert, patient awake, patient oriented x3 and moves all extremities Psych Appearance: grossly normal Mental Status: mental status grossly normal Affect: normal affect Speech and Movement: speech and movement normal Attitude: cooperative Coding Level of Care Code Established Pt Off vis,est,level 3 Patient Type Established Diagnoses Screening for cervical cancer Z12.4 Vaginal discharge N89.8 Assessment and Plan Assessment and Plan (1) Screening for cervical cancer: Status: Acute Plan: repeat pap obtained today. Call with results. (2) Vaginal discharge: Status: Acute Plan: Culture obtained today. Otherwise asymptomatic. Will call with results and treat if positive. Orders: Orders PAP I-G w/rfx hrHPV-Aptima Today Z12.4 - Encounter for screening for malignant neoplasm of cervix Culture, Genital Comprehensive Today N89.8 - Other specified noninflammatory disorders of vagina 02/23/24 1114 Date Kristina MARIN Cosigner Signature: Date (if applicable) CC: Normal [facility] Pelvic w/ Transvaginalon Pelvic w/ Transvaginal [facility] Imaging Services [address] [place], [place] [address] Pelvic w/ Transvaginal MR#: [id number] Acct: [id number] Name: DAVID CONTI Rep #: [id number] : 1995 F 28 From: Glen Ramirez PCP: TOMAS Roth Status: REG CLI Study: Pelvic w/ Transvaginal Date of Exam: 02/21/24 Exam# [id number] Ordering Dr: Kristina Cruz -[id number] EXAM: US PELVIS TRANSABDOMINAL AND TRANSVAGINAL, COMPLETE CLINICAL INDICATION: PCOS TECHNIQUE: Transabdominal and transvaginal pelvic ultrasound was performed with grayscale and color Doppler imaging. Transvaginal imaging was used for better evaluation of the endometrium and adnexa. COMPARISON: No relevant prior studies available. FINDINGS: UTERUS/CERVIX: Unremarkable. Anteverted. There is no uterine mass. The uterus measures 7.8 x 4.7 x 2.6 cm. The endometrial stripe measures 0.6 cm in thickness. RIGHT OVARY: Multiple small peripheral follicles in the right ovary. Blood flow is present in the right ovary. The right ovary measures 3.6 x 3.0 x 2.4 cm with a volume of 13.6 ml. LEFT OVARY: Multiple small peripheral follicle in the left ovary. Blood flow is present in the left ovary. The left ovary measures 3.6 x 3.2 x 1.9 cm with a volume of 11.5 ml. FREE FLUID: None. BLADDER: Unremarkable as visualized. Wall is normal thickness for degree of distention. US/Pelvic w/ Transvaginal IMPRESSION: Mildly enlarged ovaries bilaterally with multiple small peripheral follicles consistent with polycystic ovary disease. Electronically Signed: Glen Levy MD at 3:08 EDT , CC: TOMAS Cruz; TOMAS Morales Cpa Tax: Signed Normal [facility] DHEA Sulfateon 02-20-2024 DHEA SULFATE 286.0 ug/dL Normal 84.8-378.0 [facility] Comment on above: Order Comment: PN Performed By: #### B TS, L700.8000 #### [facility] [address] [place], [address] PAP I-G w/rfx hrHPV-Aptimaon 02-20-2024 ADEQ Comment Normal . [facility] Comment on above: Order Comment: Speci men Comment: [id number] Specimen Comment: Source.............Cervix;Endocervix Specimen Comment: LMP / Prev Treat...[id number] Specimen Comment: No. of containers..01 ThinPrep Vial Result Comment: Spec imen processed and examined but unsatisfactory for evaluation of epithelial abnormality because of insufficient cellularity. Performed By: #### L 7400.0353 #### [facility] [address] [place], [place], [address] COMM . Normal . [facility] Comment on above: Order Comment: Speci men Comment: [id number] Specimen Comment: Source.............Cervix;Endocervix Specimen Comment: LMP / Prev Treat...[id number] Specimen Comment: No. of containers..01 ThinPrep Vial Performed By: #### L 7400.0353 #### [facility] [address] [place], [address] COMMENT TNP Normal . [facility] Comment on above: Order Comment: Speci men Comment: [id number] Specimen Comment: Source.............Cervix;Endocervix Specimen Comment: LMP / Prev Treat...[id number] Specimen Comment: No. of containers..01 ThinPrep Vial Result Comment: The Thin Prep(R) Animal Husbandry Worker was unable to read this specimen. Therefore a manual review was performed. Performed By: #### L 7400.0353 #### [facility] [address] [place], [place], [address] DIAG Comment Normal . [facility] Comment on above: Order Comment: Speci men Comment: [id number] Specimen Comment: Source.............Cervix;Endocervix Specimen Comment: LMP / Prev Treat...[id number] Specimen Comment: No. of containers..01 ThinPrep Vial Result Comment: UNSA TISFACTORY FOR EVALUATION. Performed By: #### L 7400.0353 #### [facility] [address] [place], [place], [address] HPV RFLX Comment Normal . [facility] Comment on above: Order Comment: Speci men Comment: [id number] Specimen Comment: Source.............Cervix;Endocervix Specimen Comment: LMP / Prev Treat...[id number] Specimen Comment: No. of containers..01 ThinPrep Vial Result Comment: The HPV DNA reflex criteria were not met with this specimen result therefore, no HPV testing was performed. Performed at: [address] [place] [id number] Weatherization Coordinator: Malika Thompson MD, Phone: [phone] Performed By: #### L 7400.0353 #### [facility] [address] [place], [place], [address] PAPSMR Comment Normal . [facility] Comment on above: Order Comment: Speci men Comment: [id number] Specimen Comment: Source.............Cervix;Endocervix Specimen Comment: LMP / Prev Treat...[id number] Specimen Comment: No. of containers..01 ThinPrep Vial Result Comment: The Pap smear is a screening test designed to aid in the detection of premalignant and malignant conditions of the uterine cervix. It is not a diagnostic procedure and should not be used as the sole means of detecting cervical cancer. Both false-positive and false-negative reports do occur. Performed By: #### L 7400.0353 #### [facility] [address] [place], [place], [address] PERFORM Comment Normal . [facility] Comment on above: Order Comment: Speci men Comment: [id number] Specimen Comment: Source.............Cervix;Endocervix Specimen Comment: LMP / Prev Treat...[id number] Specimen Comment: No. of containers..01 ThinPrep Vial Result Comment: Leatha Omalley Telephone Betting Clerk (ASCP) Performed By: #### L 7400.0353 #### [facility] [address] [place], [place], [address] QC REV Comment Normal . [facility] Comment on above: Order Comment: Speci men Comment: [id number] Specimen Comment: Source.............Cervix;Endocervix Specimen Comment: LMP / Prev Treat...[id number] Specimen Comment: No. of containers..01 ThinPrep Vial Result Comment: Cristine Brush, Supervisory Telephone Betting Clerk (ASCP) Performed By: #### L 7400.0353 #### [facility] [address] [place], [place], [address] RECOMM Comment Normal . [facility] Comment on above: Order Comment: Speci men Comment: [id number] Specimen Comment: Source.............Cervix;Endocervix Specimen Comment: LMP / Prev Treat...[id number] Specimen Comment: No. of containers..01 ThinPrep Vial Result Comment: Sugg est follow up as clinically appropriate. Performed By: #### Lea 7400.0353 #### [facility] [address] [place], [address] PROLACTIN 4465on 02-20-2024 PROLACTIN 37.7 ng/mL High 4.8-33.4 [facility] Comment on above: Order Comment: PN Performed By: #### Martine SHAH, L700.8000 #### [facility] [address] [place], [address] Testosterone Freeon 02-20-20 24 TESTOSTER FREE 4.6 pg/mL Abnormal 0.0-4.2 [facility] Comment on above: Order Comment: PN Result Comment: Perf ormed at: [facility] [address] [id number] Weatherization Coordinator: Neil Henry PhD, Phone: [phone] Performed at: [facility] [address] [id number] Weatherization Coordinator: Shy Lockett MD, Phone: [phone] Performed By: #### Martine SHAH, L700.8000 #### [facility] [address] [place], [address] Extended Day Teacher Office Visit Reporton 02-16-2024 Extended Day Teacher Office Visit Report [facility] [address], [address] [place] [address] OFFICE VISIT Date of Service: 02/16/24 MR#: [id number] Acct: [id number] Name: DAVID CONTI Rep #: [id number] : 1995 Provider: TOMAS bingham Age/Sex: 28/F Location: [facility] Status: Signed Intake Vital Signs 02/13/24 07:28 02/16/24 09:25 02/16/24 09:32 Height 5 ft 4 in 5 ft 4 in 5 ft 4 in Weight: 159 lb 6 oz BMI 27.3 BP 110/70 Intake Visit Reasons: Infertility Consult Chief Complaint: Infertility consult Metal Tile Lather Required: No Is patient in pain?: No Allergies No Known Allergies Allergy (Verified 02/16/24 09:25) Medications ???Medication ???Instructions ???Recorded ???Confirmed ???Type albuterol sulfate 90 mcg/actuation 1 - 2 puff inhalation Q4H PRN PRN 07/15/14 02/16/24 History aerosol inhaler (Ventolin HFA) sob bupropion HCl 300 mg 24 hr tablet, 300 mg PO QAM 02/13/24 02/16/24 History extended release docosahexaenoic acid 200 mg mg PO 02/13/24 02/16/24 History capsule ( DHA) Is last menstrual period known: Yes Last Menstrual Period: 01/11/24 Post menopausal: No Patient : No : No PFSH Medical History History of miscarriage PCOS (polycystic ovarian syndrome) Anxiety and depression Fatigue Asthma Surgical History History of wisdom tooth extraction History of ankle surgery Family History Grandmother Breast cancer Social History Smoking Status: Never smoker alcohol intake: current substance use type: does not use HPI Infertility Consult Details: DAVID CONTI is a 28 year old who presents for infertility consult. Spouse Kayla (10/03/91) He has 3 children. Saw Ekta Cruz NP this week:labs pending, US scheduled 02/10. Past diagnosis of PCOS, she tried metformin but could not tolerate side effects. She has menses about every 31-35 days. Dysmenorrhea: some cramping, not extreme Irregular menses: yes Menopausal symptoms: no Persistent CEBALLOS or visual changes: no Hirsutism: chin Previous contraception used: IUD and OCP Duration of regular unprotected intercourse: 2 years history of pelvic infections in patient or partner: no family history of endometriosis: no tobacco use for patient or her partner: no partner fathered any pregnancies: yes, 3 children partner history of testicular issues, ejaculatory dysfunction, or history of Mumps: no Partner medications/vitamin s/supplements: lisinopril, lexapro, fenofibrate Partner's employment: [email or web address] any additional risk factors identified: no Female Reproductive History Last Menstrual Period: 01/11/24 ROS Const Constitutional: Reports system reviewed and no additional complaints, except as documented Eyes Eyes: Reports system reviewed and no additional complaints, except as documented GI GI: Denies abdominal pain or change in bowel habits : Reports as per HPI Exam Const General: cooperative and no acute distress Orientation: oriented x3 HENMT Head: normal to inspection and normocephalic Eyes General: appearance normal, both eyes and all related structures Neck Neck: normal visual inspection Resp Effort Inspection: normal respiratory effort Neuro Cognition: normal cognition Speech: speech normal Psych Appearance: grossly normal Mood: congruent mood Affect: normal affect Speech and Movement: speech and movement normal Attitude: cooperative Judgment: judgment good Coding Level of Care Code Off vis,est,level 3 Diagnoses PCOS (polycystic ovarian syndrome) E28.2 Infertility Assessment and Plan Assessment and Plan (1) PCOS (polycystic ovarian syndrome): Status: Acute (2) Infertility: Status: Acute Plan Day 3 labs-if normal proceed to day 21 progesterone. If this is normal HSG Spouse has had 3 children, consider SA only if above normal. If no menses by day 35 call for provera challenge. 02/16/24 1238 Date Samanta Stamford UI APPLICATION DEVELOPER UI APPLICATION DEVELOPER-C Cosigner Signature: Date (if applicable) CC: Normal [facility] PROGESTERONE 4317on 02-16-20 24 PROGESTERONE 0.7 ng/mL Normal . [facility] Comment on above: Order Comment: PN Result Comment: Foll icular phase 0.1 - 0.9 Luteal phase 1.8 - 23.9 Ovulation phase 0.1 - 12.0 First trimester 11.0 - 44.3 Second trimester 25.4 - 83.3 Third trimester 58.7 - 214.0 Postmenopausal 0.0 - 0.1 Performed at: [facility] [address] [id number] Weatherization Coordinator: Neil Henry PhD, Phone: [phone] Performed By: #### Martine SHAH, L700.8000 #### [facility] [address] [place], [address] [facility] 02-15-2024 Albumin [Mass/Vol] 4.2 g/dL Normal 3.2-5.0 [facility] Comment on above: Order Comment: N Performed By: #### Martine SHAH, L700.8000 #### [facility] [address] [place], [address] Albumin/Globulin [Mass ratio] 1.3 {ratio} Normal 0.9-2.4 [facility] Comment on above: Order Comment: N Performed By: #### Martine SHAH, L700.8000 #### [facility] [address] [place], [address] ALK P 79 U/L Normal 45-117 [facility] Comment on above: Order Comment: N Performed By: #### Martine SHAH, L700.8000 #### [facility] [address] [facility] [place], [address] ALT [Catalytic activity/Vol] 51 U/L Normal 13-56 [facility] Comment on above: Order Comment: N Performed By: #### Martine SHAH, L700.8000 #### [facility] [address] [place], [address] AST [Catalytic activity/Vol] 22 U/L Normal 15-37 [facility] Comment on above: Order Comment: N Performed By: #### Martine SHAH, L700.8000 #### [facility] [address] [place], [address] Bilirubin [Mass/Vol] 0.30 mg/dL Normal 0.20-1.00 [facility] Comment on above: Order Comment: N Result Comment: For patients on eltrombopag therapy, use of Dimension [place] TBIL is not recommended. Performed By: #### Martine SHAH, L700.8000 #### [facility] [address] [place], [address] BUN/CRE 11.0 RATIO Normal 10-20 [facility] Comment on above: Order Comment: N Performed By: #### Martine SHAH, L700.8000 #### [facility] [address] [place], [address] CA,Total 8.9 mg/dL Normal 8.5-10.1 [facility] Comment on above: Order Comment: N Performed By: #### Martine SHAH, L700.8000 #### [facility] [address] [place], [address] Chloride [Moles/Vol] 109 mmol/L High 98-107 [facility] Comment on above: Order Comment: N Performed By: #### Martine SHAH, L700.8000 #### [facility] [address] [place], [address] CO2 [Moles/Vol] 26.0 mmol/L Normal 21.0-32.0 [facility] Comment on above: Order Comment: N Performed By: #### Martine SHAH, L700.8000 #### [facility] [address] [place], [address] Creatinine [Mass/Vol] 0.82 mg/dL Normal 0.55-1.02 [facility] Comment on above: Order Comment: N Result Comment: The validity of the calculated GFR GFRAA in patients over 70 years has not been determined. Clinical correlation is essential. Performed By: #### Martine SHAH, L700.8000 #### [facility] [address] [place], [address] EST GFR - AA 108 mL/min Normal >60 [facility] Comment on above: Order Comment: N Result Comment: Afri can [place] GFR Calc Performed By: #### Martine SHAH, L700.8000 #### [facility] [address] [place], [address] GAP 5 Normal 5-15 [facility] Comment on above: Order Comment: N Performed By: #### Martine SHAH, L700.8000 #### [facility] [address] [place], [address] GFR/1.73 sq M.predicted among non-blacks MDRD (S/P/Bld) [Vol rate/Area] 90 mL/min/{1.73_m2} Normal >60 [facility] Comment on above: Order Comment: N Result Comment: Non- GFR Calc Performed By: #### Martine SHAH, L700.8000 #### [facility] [address] [place], [address] Globulin (S) [Mass/Vol] 3.3 g/dL Normal 2.2-4.2 [facility] Comment on above: Order Comment: N Performed By: #### Martine SHAH, L700.8000 #### [facility] [address] [place], [address] Glucose [Mass/Vol] 105 mg/dL Normal 74-106 [facility] Comment on above: Order Comment: N Result Comment: Fast ing Glucose result from 100 to 125 mg/dL suggests IMPAIRED HOMEOSTASIS per A.D.A. criteria. Performed By: #### Martine SHAH, L700.8000 #### [facility] [address] [place], [address] Potassium [Moles/Vol] 4.0 mmol/L Normal 3.5-5.1 [facility] Comment on above: Order Comment: N Performed By: #### Martine SHAH, L700.8000 #### [facility] [address] [place], [address] Sodium [Moles/Vol] 140 mmol/L Normal 136-145 [facility] Comment on above: Order Comment: N Performed By: #### Martine SHAH, L700.8000 #### [facility] [address] [place], [address] T PROT 7.5 g/dL Normal 6.4-8.2 [facility] Comment on above: Order Comment: N Performed By: #### Martine SHAH, L700.8000 #### [facility] [address] [place], [address] Urea nitrogen [Mass/Vol] 9 mg/dL Normal 7-18 [facility] Comment on above: Order Comment: N Performed By: #### Martine SHAH, L700.8000 #### [facility] [address] [place], [address] Hemoglobin A1con 02-15-2024 HbA1c (Bld) [Mass fraction] 5.3 % Normal 3.8-5.6 [facility] Comment on above: Result Comment: Norm al < 5.7 % Prediabetic 5.7 - 6.4 % Diabetic >or= 6.5 % Please note range changes. Performed By: #### Martine SHAH, L700.8000 #### [facility] [address] [place], [address] Lipid Profileon 02-15-2024 Cholesterol [Mass/Vol] 237 mg/dL High 200 [facility] Comment on above: Order Comment: N Result Comment: <200 mg/dL Desirable 200-240 mg/dL Borderline >240 mg/dL High Risk Performed By: #### Martine SHAH, L700.8000 #### [facility] [address] [place], [address] Cholesterol in HDL [Mass/Vol] 72 mg/dL Normal [facility] Comment on above: Order Comment: N Result Comment: The drugs N-Acetylcysteine and Metamizole may falsely depress this assay. Reference Range HDL <40 mg/dL Low HDL Cholesterol HDL >or= 60 mg/dL High HDL Cholesterol Performed By: #### Martine SHAH, L700.8000 #### [facility] [address] [place], [address] Cholesterol in LDL [Mass/Vol] 148 mg/dL High 0-130 [facility] Comment on above: Order Comment: N Performed By: #### Martine SHAH, L700.8000 #### [facility] [address] [place], [address] Cholesterol in VLDL [Mass/Vol] 17 mg/dL Normal 5-40 [facility] Comment on above: Order Comment: N Performed By: #### Martine SHAH, L700.8000 #### [facility] [address] [place], [address] Triglyceride [Mass/Vol] 86 mg/dL Normal [facility] Comment on above: Order Comment: N Result Comment: The drugs N-Acetylcysteine and Metamizole may falsely depress this assay. Serum Triglycerides Reference Interval Normal <150 mg/dL Borderline high 150 - 199 mg/dL High 200 - 499 mg/dL Very High > or = 500 mg/dL Performed By: #### Martine SHAH, L700.8000 #### [facility] [address] [place], [address] T4 Free Directon 02-15-2024 T4 FREE DIRECT 0.84 ng/dL Normal 0.76-1.46 [facility] Comment on above: Order Comment: PN Performed By: #### B TS, L700.8000 #### [facility] [address] [place], [address] Thyroid Stim Hormone (TSH)on 02-15-2024 TSH 2.330 uIU/mL Normal 0.358-3.740 [facility] Comment on above: Order Comment: PN Performed By: #### B TS, L700.8000 #### [facility] [address] [place], [address] Extended Day Teacher Office Visit Reporton 02-13-2024 Extended Day Teacher Office Visit Report [facility] [address], [address] [place] [address] OFFICE VISIT Date of Service: 02/13/24 MR#: [id number] Acct: [id number] Name: DAVID CONTI Rep #: [id number] : 1995 Provider: TOMAS Drummond Age/Sex: 28/F Location: [facility] Status: Signed Intake Vital Signs 08/13/17 23:30 02/13/24 07:25 02/13/24 07:28 Height 5 ft 4 in 5 ft 3.5 in 5 ft 4 in Weight: 162 lb 4 oz BMI 28.3 BP 110/78 Blood Pressure Location Rt brachial Position Sitting Respiration 15 Pulse 85 Pulse Source NIBP Temp 98.5 F Temperature Source Temporal Artery Pulse Oximetry (%) 99 Oxygen Delivery Method room air 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: annual new Metal Tile Lather Required: No Is patient in pain?: No Feel stressed/tense/nerv ous/anxious/difficu lty sleeping: only a little Allergies No Known Allergies Allergy (Verified 02/13/24 07:26) Medications ???Medication ???Instructions ???Recorded ???Confirmed ???Type albuterol sulfate 90 mcg/actuation 1 - 2 puff inhalation Q4H PRN PRN 07/15/14 02/13/24 History aerosol inhaler (Ventolin HFA) sob bupropion HCl 300 mg 24 hr tablet, 300 mg PO QAM 02/13/24 02/13/24 History extended release docosahexaenoic acid 200 mg mg PO 02/13/24 02/13/24 History capsule ( DHA) metformin 500 mg tablet 1,000 mg PO BID 02/13/24 02/13/24 History Is last menstrual period known: Yes Last Menstrual Period: 01/11/24 Post menopausal: No Patient : No : No Do you think of yourself as: straight/heterosexu al Current gender identity: female [facility] Medical History (Updated 02/13/24 @ 07:31 by Peace Lee) History of miscarriage PCOS (polycystic ovarian syndrome) Anxiety and depression Fatigue Asthma Surgical History (Updated 02/13/24 @ 07:30 by Peace Lee) History of wisdom tooth extraction History of ankle surgery Family History (Updated 02/13/24 @ 07:29 by Peace Lee) Grandmother Breast cancer Social History (Updated 02/13/24 @ 07:30 by Peace Lee) do you think of yourself as: straight/heterosexu al current gender identity: female Smoking Status: Never smoker alcohol intake: current substance use type: does not use HPI Encounter for routine gynecological examination Details: DAVID CONTI is a 28 year old who presents for annual exam. Patient reports in 2021 had positive test; had cramping and bleeding and then took another test and was negative. Diagnosed with PCOS and told she would never be able to have children prior to this. She was started on Metformin for PCOS however has not been able to tolerate this well because of excessive diarrhea. She ended up stopping this a couple weeks ago as it has affected her ADL's/life. No previous records available for review. She is sexually active; one partner; no concerns for STIs/D. Last PAP: 2016-negative History of abnormal PAP: None Last mammogram: None History of abnormal mammogram: None Colon cancer screening: None Other preventative health care screenings: Primary Care Doctor: PEARL Lombardi. Female Reproductive History Last Menstrual Period: 01/11/24 Cycle Length: 21-35 Bleeding Duration: 5 Questions: metorrhagia: No, sexually active: Yes, dyspareunia: No and PCB: No ROS Const Constitutional: Denies chills, fatigue, fever(s), headache(s) or weight loss Eyes Eyes: Denies change in vision ENT ENT: Denies dizziness Resp Resp: Denies cough GI GI: Reports other (diarrhea specific to metformin. ); Denies abdominal pain, constipation or nausea : Denies difficulty voiding, dysuria, hematuria, nipple discharge, pelvic pain, prolapse symptoms, urinary incontinence, vaginal discharge, vaginal dryness, vaginal odor or vaginal pruritus Skin Skin/Breast: Denies alopecia, rash, breast mass, breast pain, breast skin changes or nipple discharge Neuro Neuro: Denies dizziness Psych Psych: Denies anxiety or depression Endo Endo: Denies cold intolerance, excessive sweating or heat intolerance Exam Const General: cooperative, healthy appearing, comfortable, no acute distress, well groomed and well hydrated Nutritional Appearance: well nourished Orientation: alert, awake and oriented x3 HENMT Head: normal to inspection and normocephalic Ears: hearing grossly normal bilaterally and external ears normal Nose: external nose normal Face and sinus: normal facial exam Eyes General: appearance normal, both eyes and all related structures Neck Neck: normal visual inspection, full ROM and no lymphadenopathy Thyroid: thyroid normal Chest Chest palpation inspection: normal inspection of the chest Breast inspection: normal inspection of the breasts and normal inspection of t (more content not included)... Normal [facility] 36on 12-05-2023 36 Not due for refill. Normal [facility] 36 Refill not yet due. Normal [facility] Office Visiton 09-15-2023 Follow-up visit [id number] David Conti 1995 F Date Provider Department Center 09/15/2023 [id number] MORALES [facility] Family History Problem Relation Age of Onset Thyroid disease Mother Alcaraz syndrome Father Asthma Sister Breast cancer Maternal Grandmother Cancer Maternal Grandfather Cancer Paternal Grandfather Family Status - Relation Status Age at Mother Alive Father Alive Sister Sister Maternal Grandmother Maternal Grandfather Paternal Grandmother Alive Paternal Grandfather Level of Service:45247 [place] OFFICE/OUTPATIENT ESTABLISHED LOW MDM 20 MIN Reason for Visit and Comments: Medication Check [[id number]] Foot Problem [229] Normal [facility] PATINSon [...] months (around 03/17/2024) for Yearly Wellness Visit. SUBJECTIVE/OBJECTIV E: HPI - David Conti (: 1995) is [...] DIVIDE 09/08/23 Yes Tara Herrera APRN - SHANK RANDER Nilson 0.15-30 MG-MCG tablet Take 1 tablet by mouth daily. Yes Historical Provider, metFORMIN (Glucophage) 500 MG tablet Take 1 tablet by mouth in the morning and 1 tablet in the evening. Take with meals. 05/18/23 09/15/23 Yes Historical Provider, naltrexone (Depade) 50 MG tablet Take 25 mg by mouth in the morning and 25 mg in the evening. Yes Historical Provider, Pkkciffq-Jmz-Ux-FA (/IRON PO) Take 1 tablet by mouth in the morning. Yes Historical Provider, MV-Min-Fe Fum-FA-DHA ( 1 PO) Take by mouth. Historical Provider, Review of Systems Constitutional: Negative for activity change, chills, fatigue and fever. Respiratory: Negative. Cardiovascular: Negative. Gastrointestinal: Negative. Genitourinary: Negative for difficulty urinating. Musculoskeletal: Left foot. Psychiatric/Behavio ral: Positive for decreased concentration. Negative for agitation, [...] was used to authenticate this note. Joaquina Morales APRN - SHANK RANDER 09/15/2023 4:40 PM [facility] Progress Note Patient was identified by name and Date of . [facility] 36on 09-08-2023 36 Rx sent. Follow up as scheduled. [facility] 36 Prescription Request: Last medication check: 06/15/23 Last physical exam: 03/23/23 Next scheduled appointment: 09/15/23 Last date of refill on this medication 07/14/23 [facility] CNOVon 07-14-2023 CNOV Office Visit (OBGYWM) ---- DAVID CONTI ([id number]) 1995 F Date Time Provider Department 07/14/23 7:30 AM NANCY VASQUEZ During your visit today, we recorded the following information about you: Pulse Blood pressure Weight 80/minute 126/82 75.8 kg Nancy aVsquez APRN.SHANK RANDER 07/14/2023 8:47 AM Signed Some documentation from previous visit of 06/16/2023 was copied and pasted, documentation has been reviewed and edited as necessary for today's visit. Patient Summary: David is a 28 year old female who presents for follow-up evaluation of her obesity/weight management to treat PCOS, IFG, elevated LDL, anxiety and depression and prevent relatedco-morbiditi es. In our previous visits we have discussed [...] S - none D - 1829 protein, pasta/potato/rice/s weet potato and veg - asparagus, cucumber salad, winter and summer squash/salad S - none Fluids - water, unsweetened tea Bedtime - She feels the medication is helping to lessen hunger and craving to candy controlled Exercise: stable sedentary job at [employer]. 1 mile daily walk with dog Stress: [...] by mouth every morning. PNV/iron/folic acid ( [id number]-VSPK-JJ ORAL) Take 1 tablet by mouth once daily. albuterol HFA (PROVENTIL HFA, VENTOLIN HFA) 90 mcg/actuation inhaler Inhale 2 Puffs as instructed every 4 hours as needed. 1 Inhaler 0 No current facility-administer ed medications for this visit. Occupation: [employer] Contraception: none BP 126/82 Pulse 80 Wt [...] NALTREXONE 50 (more content not included)... Normal [facility] CNOVon 06-16-2023 CNOV Office Visit (OBGYWM) ---- DAVID CONTI ([id number]) 1995 F Date Time Provider Department 06/16/23 7:00 AM NANCY VASQUEZ During your visit today, we recorded the following information about you: Blood pressure Weight Last Period 116/84 76.7 kg 04/26/23 Nancy Vasquez APRN.SHANK RANDER 06/16/2023 7:59 PM Signed Some documentation from previous visit of 05/18/2022 was copied and pasted, documentation has been reviewed and edited as necessary for today's visit. Patient Summary: David is a 27 year old female who presents for follow-up evaluation of her obesity/weight management to treat PCOS, IFG, elevated LDL, anxiety and depression and prevent relatedco-morbiditi es. In our previous visits we have discussed lifestyle intervention including a nutrition recommendations and physical activity optimization. Her last office visit was 1 month ago. Irregular menses - Menses 03/17/2023 LMP 04/26-3 spotting 20 lb weight gain with Lexapro for anxiety. Changed to bupropion by PCP. Assessment/plan from last visit: Metformin 500 mg twice a day with meals - tried 1 gm at dinner but had nausea and mild diarrhea (actually took at bedtime) Bupropion 150 mg 24/hr tab for anxiety and depression Was in [place] with who races - very hectic travel. [...] S - none D - 1830 protein, pasta/potato/rice/s weet potato and veg - asparagus, cucumber salad, winter and summer squash S - none or Skinny popcorn Fluids - water, zero sugar electrolyte drink mixes, unsweetened tea Bedtime - She feels the medication is helping to lessen hunger and craving to candy Exercise: stable sedentary job at [employer]. Just got gym membership - walking and [...] by mouth every morning. PNV/iron/folic acid ( [id number]-TDWG-ST ORAL) Take 1 tablet by mouth once daily. metFORMIN (GLUCOPHAGE) 500 mg tablet Take 1 tablet by mouth two times a day with meals. 180 tablet 0 albuterol HFA (PROVENTIL HFA, VENTOLIN HFA) 90 mcg/actuation inhaler Inhale 2 Puffs as instructed every 4 hours as needed. 1 Inhaler 0 No current facility-administer ed medications for this visit. BP 116/84 Wt [...] in-office visits (more content not included)... Normal [facility] Office Visiton 06-15-2023 Follow-up visit [id number] David Conti 1995 F Date Provider Department Center 06/15/2023 [id number] MORALES [facility] Family History Problem Relation Age of Onset Thyroid disease Mother Alcaraz syndrome Father Asthma Sister Breast cancer Maternal Grandmother Cancer Maternal Grandfather Cancer Paternal Grandfather Family Status - Relation Status Age at Mother Alive Father Alive Sister Sister Maternal Grandmother Maternal Grandfather Paternal Grandmother Alive Paternal Grandfather Level of Service:12446 [place] OFFICE/OUTPATIENT ESTABLISHED MOD MDM 30 MIN Reason for Visit and Comments: Medication Check [[id number]] Normal [facility] PATINSon 06-15-2023 PATINS Asked about extended release metformin. Give update in about a month- if you want to increase dose of Wellbutrin or not Normal [facility] Progress Noteon 06-15-2023 Progress Note Recommend following up with COOKING CASING AND DRYING SUPERVISOR regarding side effects of metformin and requesting if she can take extended release metformin to see if that is better tolerated. Normal [facility] Progress Note Denies any suicidal or homicidal ideation. Anxiety and depression have improved we will continue Wellbutrin 150 mg daily, patient to give us an update in about 1 month via EduRiset if she would like to increase the dose to 300 mg. We will schedule her for follow-up in 3 months [facility] Progress Note Patient was identified by name and Date of . [facility] Progress Note 06/15/2023 David Conti (: 1995) is a 27 y.o. female , Established patient, here for evaluation of the following chief complaint(s): Medication Check ASSESSMENT/PLAN: 1. Anxiety and depression Assessment & Plan: Denies any suicidal or homicidal ideation. Anxiety and depression have improved we will continue Wellbutrin 150 mg daily, patient to give us an update in about 1 month via Connectivity if she would like to increase the dose to 300 mg. We will schedule her for follow-up in 3 months 2. PCOS (polycystic ovarian syndrome) Assessment & Plan: Recommend following up with COOKING CASING AND DRYING SUPERVISOR regarding side effects of metformin and requesting if she can take extended release metformin to see if that is better tolerated. Follow up for 3 month [facility]. SUBJECTIVE/OBJECTIV E: HPI - David Conti (: 1995) is a 27 y.o. female , Established patient, here for the evaluation of the following chief complaint(s): Medication Check RACING WITH IN [place] WENT WELL, WAS SUPER BUSY. Did not get to do any sightseeing as they were busy at the track every day. Got back from [place] on June 05, 2023. Patient reports she went to podopediatrician for pcos- was started on metformin and [...] chew, or split. 05/16/23 07/15/23 Yes Joaquina Morales, ILLUMINATING ENGINEER - SANDIP metFORMIN (Glucophage) 500 MG tablet Take 1 tablet by mouth in the morning and 1 tablet in the evening. Take with meals. 05/18/23 08/16/23 Yes Historical Provider, Uuqsizxe-Sez-Ok-FA (/IRON PO) Take 1 tablet by mouth [...] was used to authenticate this note. Joaquina Morales, JACINTO Pyle CNP 06/15/2023 9:35 AM [facility] CNOVon 05-18-2023 [facility] Office Visit (OBGYWM) ---- DAVID CONTI ([id number]) 1995 F Date Time Provider Department 05/18/23 7:00 AM NANCY VASQUEZ During your visit today, we recorded the following information about you: Blood pressure Weight Last Period 100/72 75.3 kg 04/26/23 Nancy Vasquez, JACINTO.SHANK RANDER 05/19/2023 1:09 PM Signed David Conti is a 27 year old [...] Ectopic0 Multiple0 Live Births0 Comment: 3 stepchildren Offset Lithographic Press Operator History LMP: 04/26/2023, Having periods Age at Menarche: Age at First : Age at Menopause: Offset Lithographic Press Operator History Comments: Sexual Activity: Yes; Male; sexually [...] by mouth every morning. PNV/iron/folic acid ( ZHJISQP-MVJG-EN ORAL) Take 1 tablet by mouth once daily. albuterol HFA (PROVENTIL HFA, VENTOLIN HFA) 90 mcg/actuation inhaler Inhale 2 Puffs as instructed every 4 hours as needed. Drospirenone-Ethiny l Estradiol (ANTONY, 28,) 3-0.03 mg per tablet Take 1 tablet by mouth once daily. Take one active pill continuously x 3 months- discard placebo pills (Patient not taking: Reported on 05/18/2023) No current facility-administer ed medications for this visit. Allergies As of [...] your hu (more content not included)... Normal [facility] Glucose p fast Emilieon 05-18-2023 Glucose post fast [Mass/Vol] 101 mg/dL High 74-99 [facility] Comment on above: Order Comment: Juaquin werner Type: BLOOD SPECIMEN Ordering Facility: [facility] Address: [address] [place] [address] Result Comment: Amer [place] Diabetes Association guidelines [...] Performed By: #### 1 558-6 #### [facility] CLIA [id number] [address] [place] [address] [place] HbA1c (Bld)on 05-18-2023 Average glucose Estimated from glycated hemoglobin (Bld) [Mass/Vol] 111 mg/dL Normal [facility] Comment on above: Order Comment: Juaquin werner Type: BLOOD SPECIMEN Ordering Facility: [facility] Address: [address] [place] [address] Result Comment: eAG: (Estimated average glucose) is a calculated value from HgbA1c and is leather goods sales representative of the average blood glucose level in the last 2-3 month period. Performed By: #### 5 5454-3 #### [facility] CLIA [id number] [address] [place] [address] [place] HbA1c (Bld) [Mass fraction] 5.5 % Normal 4.3-5.6 [facility] Comment on above: Order Comment: Juaquin werner Type: BLOOD SPECIMEN Ordering Facility: [facility] Address: [address] [place] [address] Result Comment: Amer ican Diabetes Association guidelines indicate that patients with HgbA1c in the range 5.7-6.4% are at increased risk for development of diabetes, and intervention by lifestyle modification may be beneficial. HgbA1c greater or equal to 6.5% is considered diagnostic of diabetes. Performed By: #### 5 5454-3 #### [facility] CLIA [id number] [address] [place] [address] [place] Insulin SerPl-aCncon 024 Insulin Qn 13.0 u[IU]/mL Normal 3.0-25.0 [facility] Comment on above: Order Comment: Speci men Type: BLOOD SPECIMEN Ordering Facility: [facility] Address: [address] [place] [address] Performed By: #### 2 0448-7 #### [facility] CLIA [id number] [address] [place] [address] [place] Office Visiton 05-16-2023 Follow-up visit [id number] David Conti 1995 F Date Provider Department Center 05/16/2023 [facility] Family History Problem Relation Age of Onset Thyroid disease Mother Alcaraz syndrome Father Asthma Sister Breast cancer Maternal Grandmother Cancer Maternal Grandfather Cancer Paternal Grandfather Family Status - Relation Status Age at Mother Alive Father Alive Sister Sister Maternal Grandmother Maternal Grandfather Paternal Grandmother Alive Paternal Grandfather Level of Service:66321 [place] OFFICE/OUTPATIENT ESTABLISHED MOD MDM 30 MIN Reason for Visit and Comments: Medication Check [[id number]] Weight Gain [180] Normal [facility] PATINSon 05-16-2023 PATINS Start wellbutrin and decrease lexapro to 10 mg daily x 7 days, then stop the lexapro. Check Headspace vangie for meditation Normal [facility] Progress Noteon 05-16-2023 Progress Note Will have her follow up with her podopediatrician, suspect gain posssilby from pcos. Continue exercise, healthy eating and portion control. Will stop lexapro (possible weight gain) and switch to wellbutrin. Normal [facility] Progress Note Denies si/hi. Anxiety and depression symptoms better but still is having trouble focusing. Will taper discontinue lexapro and start wellbutrin. Follow up in about 1 month Normal [facility] Progress Note Patient was identified by name and Date of . Normal [...] Will have her follow up with her podopediatrician, suspect gain posssilby from pcos. Continue exercise, healthy eating and portion control. Will stop lexapro (possible weight gain) and switch to wellbutrin. Follow up in about 1 month (around 06/16/2023). SUBJECTIVE/OBJECTIV E: HPI - David Conti (: 1995) is [...] . Will be following up with her podopediatrician. Reports anxiety is better, but is not able to focus well still. Denies si/hi. Her and her are getting ready to go to [place] for car racing for 11 days. Her [...] Negative. Genitourinary: Negative. Musculoskeletal: Negative. Neurological: Negative. Psychiatric/Behavio ral: Positive for decreased concentration. Negative for self-injury, [...] note. JACINTO Roth CNP 05/16/2023 4:24 PM Normal [facility] Office Visiton 03-23-2023 Follow-up visit [id number] David Conti 1995 F Date Provider Department Center 03/23/2023 [id number] MORALES [facility] Family History Problem Relation Age of Onset Thyroid disease Mother Alcaraz syndrome Father Asthma Sister Breast cancer Maternal Grandmother Cancer Maternal Grandfather Cancer Paternal Grandfather Family Status - Relation Status Age at Mother Alive Father Alive Sister Sister Maternal Grandmother Maternal Grandfather Paternal Grandmother Alive Paternal Grandfather Level of Service:39372 [place] PERIODIC PREVENTIVE MED EST PATIENT 18-39 YRS Reason for Visit and Comments: Follow-up [379629] Health Maintenance [872] - Lipid-pended HIV/Hep C-declined Covid-declined PHQ-completed Pap-CCF (will scan in) Tdap-declined Influenza-declined ? [facility] PATINSon 03-23-2023 PATINS Melatonin 1- 5 mg nightly to help with sleep. Send update via [employer] to provider in 1 month on how you are doing on the lexapro 10 mg daily. [facility] Progress Noteon 03-23-2023 Progress Note Denies any suicidal or homicidal ideation. Reports improved symptoms. We will continue on Lexapro 10 mg daily she is to provide an update through Connectivity in approximately 4 weeks. Consider up titration if needed at that point. [facility] Progress Note Patient was identified by name and Date of . Health Main: Lipid-pended HIV/Hep C-declined Covid-declined PHQ-completed Pap-CCF (will scan in) Tdap-declined Influenza-declined [facility] Progress Note 03/23/2023 David Conti (: 1995) is a 27 y.o. female , Established patient, here for evaluation of the following chief complaint(s): Follow-up and Health Maintenance (Lipid-pended/HIV/H ep C-declined/Covid-de clined/PHQ-complete d/Pap-CCF (will scan in)/Tdap-declined/I nfluenza-declined/ ) ASSESSMENT/PLAN: 1. Annual physical exam - Comprehensive metabolic panel - CBC - Lipid panel 2. Screening for deficiency anemia - CBC 3. Screening for cholesterol level - Lipid panel 4. Anxiety and depression Assessment & Plan: Denies any suicidal or homicidal ideation. Reports improved symptoms. We will continue on Lexapro 10 mg daily she is to provide an update through Connectivity in approximately 4 weeks. Consider up titration if needed at that point. Follow up in about 3 months (around 06/23/2023). SUBJECTIVE/OBJECTIV E: HPI - David Conti (: 1995) is a 27 y.o. female , Established patient, here for the evaluation of the following chief complaint(s): Follow-up and Health Maintenance (Lipid-pended/HIV/H ep C-declined/Covid-de clined/PHQ-complete d/Pap-CCF (will scan in)/Tdap-declined/I nfluenza-declined/ ) Recently newly established patient to us [...] to set up with a counselor. Has [employer]YING SUPERVISOR which she follows for women's health. Prior to Admission medications Medication Sig Start Date End Date Taking? Authorizing Provider escitalopram (Lexapro) 10 MG tablet Take 1 tablet (10 mg) by mouth daily. 03/08/23 06/06/23 Yes Joaquina Morales APRN - SHANK RANDER MV-Min-Fe Fum-FA-DHA ( 1 PO) Take by mouth. Yes Historical Provider, Review of Systems Constitutional: Negative. HENT: Negative. Respiratory: Negative. Cardiovascular: Negative. Gastrointestinal: Negative. Genitourinary: Negative. Musculoskeletal: Negative. Neurological: Negative. Psychiatric/Behavio ral: Positive for decreased concentration and sleep disturbance [...] note. JACINTO Roth CNP 03/23/2023 1:22 PM [facility] Office Visiton 03-08-2023 Follow-up visit [id number] David Conti 1995 F Date Provider Department Center 03/08/2023 [id number] MORALES [facility] Family History Problem Relation Age of Onset Thyroid disease Mother Alcaraz syndrome Father Asthma Sister Breast cancer Maternal Grandmother Cancer Maternal Grandfather Cancer Paternal Grandfather Family Status - Relation Status Age at Mother Alive Father Alive Sister Sister Maternal Grandmother Maternal Grandfather Paternal Grandmother Alive Paternal Grandfather Level of Service:96983 [place] OFFICE/OUTPATIENT NEW MODERATE MDM 45-59 MINUTES Reason for Visit and Comments: New Patient [542] [facility] PATINSon 03-08-2023 PATINS Start with 1/2 tab daily x 1 week, then increase to 1 whole tablet If you or someone you know needs support now, call or text 406 or chat 621UTILICASE.org ---- --------- To find providers in your area for mental health services https://findtreatme .gov/ To find additional support and information regarding mental health services and substance abuse https://www.samhsa. gov/ Mental Health and Psychiatry Resources Counseling [facility] [address] [phone] [facility] [address] [facility] [phone] [facility] [address], [place] [phone] [facility] (LGBTQIA+ inclusive) [phone] [place] [facility] [address] [facility] [place] [address] [facility] [address] [place] [phone] [email or web address] [facility] [address] [place] [address] Psychiatry [facility] Psychiatry [facility] [phone] [employer] Carito Clark APRN-SHANK RANDER (commercial insurance only) Behavioral Health Services [facility] [phone] Counseling and Psychiatry [address], [place] [phone] [facility] Outpatient Clinic: [phone] [place] [facility]: [phone] [facility] Clinic: [phone] [facility], [address] [place] [address] [place] (OPEN 15/11): [phone] [facility]al [facility], Psychiatry [facility] [address], [address] [facility] Multiple locations in [place] Go to [employer] [facility] Progress Noteon 03-08-2023 Progress Note Denies any active suicidal or homicidal ideation. Symptoms are poorly controlled. Will start Lexapro 10 mg daily, recommend that she start cognitive behavioral therapy-resources provided. Close follow-up in 2 weeks sooner for any worsening symptoms [facility] Progress Note Follow-up with [employer]YING SUPERVISOR as directed [facility] Progress Note [...] ovarian syndrome) Assessment & Plan: Follow-up with [employer]YING SUPERVISOR as directed Follow up in about 2 weeks (around 03/22/2023) for Recheck. SUBJECTIVE/OBJECTIV E: HPI - David Conti presents as new patient, previous primary care provider Rody Sigala III, last seen 10 years by previous provider. Specialists/other providers? Yes, describe: podopediatrician. Chief complaint(s): New Patient Patient presents today [...] with her mother. Is working full-time at [employer] and then part-time at [employer]. 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 Was 2 years ago to her [...] hospitalizations PCOS-was briefly on control through her [employer]YING SUPERVISOR however decided not to take it any longer . Is currently taking vitamins states she would be okay if she got Past Medical History: Diagnosis Date Asthma 2009 Past Surgical History: Procedure Laterality Date ANKLE SURGERY Right x 3. Dr. 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 Rents home in [place] and then lives in motor home when he is racing. Social Determinants of Health Financial Resource Strain: Not on file Food Insecurity: Not on file Transp (more content not included)... 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 Take one active pill continuously x 3 months- discard placebo pillsDisp: 112 tabletRfl: 3 Prescriptions as of 11/29/2022 - Drospirenone-Ethiny l Estradiol (ANTONY, 28,) 3-0.03 mg per tablet Take 1 tablet by mouth once daily. Take one active pill continuously x 3 months- discard placebo pills - albuterol HFA (PROVENTIL HFA, VENTOLIN HFA) 90 mcg/actuatio (more content not included)... [facility] CBC W Auto Differential pane l (Bld)on 10-20-2021 Abs Immature Gran <0.03 <0.10 k/uL [facility] Basophils (Bld) [#/Vol] 0.03 10*3/uL <0.11 k/uL [facility] Basophils/100 WBC (Bld) 0.4 % [facility] Differential cell count method Nom (Bld) Auto [facility] Eosinophils (Bld) [#/Vol] 0.18 10*3/uL <0.46 k/ uL [facility] Eosinophils/100 WBC (Bld) 2.5 % [facility] Erythrocyte distribution width (RBC) [Ratio] 13.0 % 11.5 - 15.0 % [facility] Hematocrit (Bld) [Volume fraction] 37.3 % 36.0 - 46.0 % [facility] Hemoglobin (Bld) [Mass/Vol] 12.3 g/dL 11.5 - 15.5 g/dL [facility] Immature Gran % 0.1 % [facility] Lymphocytes (Bld) [#/Vol] 2.81 10*3/uL 1. 00 - 4.00 k/uL [facility] Lymphocytes/100 WBC (Bld) 39.7 % [facility] MCH (RBC) [Entitic mass] 28.6 pg 26. 0 - 34.[address] [facility] MCHC (RBC) [Mass/Vol] 33.0 g/dL 30.5 - 36.0 g/dL [facility] MCV (RBC) [Entitic vol] 86.7 fL 80.0 - 100.[address] [facility] Monocytes (Bld) [#/Vol] 0.46 10*3/uL <0.87 k/uL [facility] Monocytes/100 WBC (Bld) 6.5 % [facility] Neutrophils (Bld) [#/Vol] 3.58 10*3/uL 1. 45 - 7.50 k/uL [facility] Neutrophils/100 WBC (Bld) 50.8 % [facility] Nucleated RBC (Bld) [#/Vol] 10*3/uL <0.01 k/ uL [facility] Nucleated RBC/100 WBC (Bld) [Ratio] 0.0 /[address] [facility] Platelet mean volume (Bld) [Entitic vol] 11.4 fL 9.0 - 12.[address] [facility] Platelets (Bld) [#/Vol] 276 10*3/uL 150 - 400 k/uL [facility] RBC (Bld) [#/Vol] 4.30 10*6/uL 3.90 - 5.2 0 m/uL [facility] WBC (Bld) [#/Vol] 7.07 10*3/uL 3.70 - 11. 00 k/uL [facility] HCG QUAL UR B/Oon 10-20-2021 status Negative neg - pos Sveta ramirez [facility] Quality Check Yes [facility] Vital Signs Date Time Vital Sign Value Performing Clinician Facility 10-02-2024 13:58-0400 Body temperature 97.8 [degF] Joaquina Morales UI APPLICATION DEVELOPER-C Work Phone: [facility] 10-02-2024 13:58-0400 Diastolic blood pressure 78 mm[Hg] Joaquina Bridenthal UI APPLICATION DEVELOPER-C Work Phone: [facility] 10-02-2024 13:58-0400 Heart rate 81 /min Joaquina Bridenthal UI APPLICATION DEVELOPER-C Work Phone: [facility] 10-02-2024 13:58-0400 Respiratory rate 17 /min Joaquina Bridenthal UI APPLICATION DEVELOPER-C Work Phone: [facility] 10-02-2024 13:58-0400 SaO2% (BldA) [Mass fraction] 100 % Joaquina Bridenthal UI APPLICATION DEVELOPER-C Work Phone: [facility] 10-02-2024 13:58-0400 Systolic blood pressure 121 mm[Hg] Joaquina Bridenthal UI APPLICATION DEVELOPER-C Work Phone: [facility] 10-02-2024 10:57-0400 Body height 162.56 cm Joaquina Bridenthal UI APPLICATION DEVELOPER-C Work Phone: [facility] 10-02-2024 10:57-0400 Body mass index (BMI) [Ratio] 29.3 kg/m2 Joaquina Bridenthal UI APPLICATION DEVELOPER-C Work Phone: [facility] 10-02-2024 10:57-0400 Body weight 77.6 kg Joaquina Bridenthal UI APPLICATION DEVELOPER-C Work Phone: [facility] 09-11-2024 10:00-0400 Body height 162.56 cm Joaquina Bridenthal UI APPLICATION DEVELOPER-C Work Phone: [facility] 09-11-2024 10:00-0400 Body mass index (BMI) [Ratio] 29 kg/m2 Joaquina Bridenthal UI APPLICATION DEVELOPER-C Work Phone: [facility] 09-11-2024 10:00-0400 Body weight 76.77 kg Joaquina Bridenthal UI APPLICATION DEVELOPER-C Work Phone: [facility] 09-11-2024 10:00-0400 Diastolic blood pressure 83 mm[Hg] Joaquina Bridenthal UI APPLICATION DEVELOPER-C Work Phone: [facility] 09-11-2024 10:00-0400 Systolic blood pressure 130 mm[Hg] Joaquina Bridenthal UI APPLICATION DEVELOPER-C Work Phone: [facility] 07-13-2024 10:42-0400 Body mass index (BMI) [Ratio] 27.3 kg/m2 Joaquina Bridenthal UI APPLICATION DEVELOPER-C Work Phone: [facility] 07-13-2024 10:42-0400 Body weight 72.12 kg Joaquina Bridenthal UI APPLICATION DEVELOPER-C Work Phone: [facility] 07-13-2024 10:42-0400 Diastolic blood pressure 92 mm[Hg] Joaquina Bridenthal UI APPLICATION DEVELOPER-C Work Phone: [facility] 07-13-2024 10:42-0400 Systolic blood pressure 138 mm[Hg] Joaquina Bridenthal UI APPLICATION DEVELOPER-C Work Phone: [facility] 06-29-2024 15:45-0500 Body temperature 97.8 [degF] Joaquina Bridenthal UI APPLICATION DEVELOPER-C Work Phone: [facility] 06-29-2024 15:45-0500 Diastolic blood pressure 63 mm[Hg] Joaquina Bridenthal UI APPLICATION DEVELOPER-C Work Phone: [facility] 06-29-2024 15:45-0500 Heart rate 63 /min Joaquina Bridenthal UI APPLICATION DEVELOPER-C Work Phone: [facility] 06-29-2024 15:45-0500 Respiratory rate 16 /min Joaquina Bridenthal UI APPLICATION DEVELOPER-C Work Phone: [facility] 06-29-2024 15:45-0500 SaO2% (BldA) [Mass fraction] 99 % Joaquina Bridenthal UI APPLICATION DEVELOPER-C Work Phone: [facility] 06-29-2024 15:45-0500 Systolic blood pressure 102 mm[Hg] Joaquina Bridenthal UI APPLICATION DEVELOPER-C Work Phone: [facility] 06-29-2024 12:02-0500 Body height 162.56 cm Joaquina Bridenthal UI APPLICATION DEVELOPER-C Work Phone: [facility] 06-29-2024 12:02-0500 Body mass index (BMI) [Ratio] 28 kg/m2 Joaquina Bridenthal UI APPLICATION DEVELOPER-C Work Phone: [facility] 06-29-2024 12:02-0500 Body weight 74 kg Joaquina Bridenthal UI APPLICATION DEVELOPER-C Work Phone: [facility] 06-25-2024 13:01-0500 Body mass index (BMI) [Ratio] 28.3 kg/m2 Joaquina Bridenthal UI APPLICATION DEVELOPER-C Work Phone: [facility] 06-25-2024 13:01-0500 Body weight 74.84 kg Joaquina Bridenthal UI APPLICATION DEVELOPER-C Work Phone: [facility] 06-25-2024 13:01-0500 Diastolic blood pressure 70 mm[Hg] Joaquina Bridenthal UI APPLICATION DEVELOPER-C Work Phone: [facility] 06-25-2024 13:01-0500 Systolic blood pressure 106 mm[Hg] Joaquina Bridenthal UI APPLICATION DEVELOPER-C Work Phone: [facility] 06-21-2024 10:50-0500 Body mass index (BMI) [Ratio] 28.8 kg/m2 Joaquina Bridenthal UI APPLICATION DEVELOPER-C Work Phone: [facility] 06-21-2024 10:50-0500 Body weight 76.31 kg Joaquina Bridenthal UI APPLICATION DEVELOPER-C Work Phone: [facility] 06-21-2024 10:50-0500 Diastolic blood pressure 77 mm[Hg] Joaquina Bridenthal UI APPLICATION DEVELOPER-C Work Phone: [facility] 06-21-2024 10:50-0500 Systolic blood pressure 124 mm[Hg] Joaquina Morales UI APPLICATION DEVELOPER-C Work Phone: [facility] 03-26-2024 14:45-0500 Body height 161.3 cm Tia Mandela ILLUMINATING ENGINEER-SHANK RANDER Work Phone: [facility] 03-26-2024 14:45-0500 Body mass index (BMI) [Ratio] 28.42 kg/m2 Tia Mandela ILLUMINATING ENGINEER-SHANK RANDER Work Phone: [facility] 03-26-2024 14:45-0500 Body temperature 98.91 [degF] Tia Mandela ILLUMINATING ENGINEER-SHANK RANDER Work Phone: [phone] [place] [address] 03-26-2024 14:45-0500 Body weight 73.94 kg Tia Mandela ILLUMINATING ENGINEER-SHANK RANDER Work Phone: [phone] [address] 03-26-2024 14:45-0500 Diastolic blood pressure 74 mm[Hg] Tia Mandela ILLUMINATING ENGINEER-SHANK RANDER Work Phone: [facility] 03-26-2024 14:45-0500 Heart rate 90 /min Tia Mandela ILLUMINATING ENGINEER-SHANK RANDER Work Phone: [facility] 03-26-2024 14:45-0500 Respiratory rate 20 /min Tia Mandela ILLUMINATING ENGINEER-SHANK RANDER Work Phone: [facility] 03-26-2024 14:45-0500 SaO2% (BldA) [Mass fraction] 98 % Tia Mandela ILLUMINATING ENGINEER-SHANK RANDER Work Phone: [facility] 03-26-2024 14:45-0500 Systolic blood pressure 125 mm[Hg] Tia Mandela ILLUMINATING ENGINEER-SHANK RANDER Work Phone: [facility] 09-15-2023 13:07-0400 Body mass index (BMI) [Ratio] 27.74 kg/m2 Joaquina Morales ILLUMINATING ENGINEER - SHANK RANDER Work Phone: [facility] 09-15-2023 13:07-0400 Body temperature 98.4 [degF] Joaquina Bridenthal ILLUMINATING ENGINEER - SHANK RANDER Work Phone: [facility] 09-15-2023 13:07-0400 Body weight 73.3 kg Joaquina Bridenthal ILLUMINATING ENGINEER - SHANK RANDER Work Phone: [facility] 09-15-2023 13:07-0400 Diastolic blood pressure 85 mm[Hg] Joaquina Bridenthal ILLUMINATING ENGINEER - SHANK RANDER Work Phone: [facility] 09-15-2023 13:07-0400 Heart rate 102 /min Joaquina Bridenthal ILLUMINATING ENGINEER - SHANK RANDER Work Phone: [facility] 09-15-2023 13:07-0400 Respiratory rate 18 /min Joaquina Bridenthal ILLUMINATING ENGINEER - SHANK RANDER Work Phone: [facility] 09-15-2023 13:07-0400 SaO2% (BldA) [Mass fraction] 97 % Joaquina Bridenthal ILLUMINATING ENGINEER - SHANK RANDER Work Phone: [facility] 09-15-2023 13:07-0400 Systolic blood pressure 129 mm[Hg] Joaquina Bridenthal ILLUMINATING ENGINEER - SHANK RANDER Work Phone: [facility] 07-14-2023 07:36-0400 Body weight 75.75 kg Nancy Vasquez APRN.SHANK RANDER Work Phone: [facility] 07-14-2023 07:36-0400 Diastolic blood pressure 82 mm[Hg] Nancy Vasquez APRN.SHANK RANDER Work Phone: [facility] 07-14-2023 07:36-0400 Heart rate 80 /min Nancy Vasquez APRN.SHANK RANDER Work Phone: [facility] 07-14-2023 07:36-0400 SaO2% (BldA) [Mass fraction] 98 % Nancy Vasquez APRN.SHANK RANDER Work Phone: [facility] 07-14-2023 07:36-0400 Systolic blood pressure 126 mm[Hg] Nancy Vasquez ILLUMINATING ENGINEER.SHANK RANDER Work Phone: [facility] 06-16-2023 06:59-0500 Body weight 76.66 kg Nancy Vasquez ILLUMINATING ENGINEER.SHANK RANDER Work Phone: [facility] 06-16-2023 06:59-0500 Diastolic blood pressure 84 mm[Hg] Nancy Vasquez ILLUMINATING ENGINEER.SHANK RANDER Work Phone: [facility] 06-16-2023 06:59-0500 Systolic blood pressure 116 mm[Hg] Nancy Vasquez ILLUMINATING ENGINEER.SHANK RANDER Work Phone: [facility] 06-15-2023 07:35-0500 Body mass index (BMI) [Ratio] 29.21 kg/m2 Joaquina Bridenthal ILLUMINATING ENGINEER - SHANK RANDER Work Phone: [facility] 06-15-2023 07:35-0500 Body temperature 98.6 [degF] Joaquina Bridenthal ILLUMINATING ENGINEER - SHANK RANDER Work Phone: [facility] 06-15-2023 07:35-0500 Body weight 77.2 kg Joaquina Bridenthal ILLUMINATING ENGINEER - SHANK RANDER Work Phone: [facility] 06-15-2023 07:35-0500 Diastolic blood pressure 69 mm[Hg] Joaquina Bridenthal ILLUMINATING ENGINEER - SHANK RANDER Work Phone: [facility] 06-15-2023 07:35-0500 Heart rate 94 /min Joaquina Bridenthal ILLUMINATING ENGINEER - SHANK RANDER Work Phone: [facility] 06-15-2023 07:35-0500 Respiratory rate 18 /min Joaquina Bridenthal ILLUMINATING ENGINEER - SHANK RANDER Work Phone: [facility] [place] 06-15-2023 07:35-0500 SaO2% (BldA) [Mass fraction] 98 % Joaquina Bridenthal ILLUMINATING ENGINEER - SHANK RANDER Work Phone: [facility] 06-15-2023 07:35-0500 Systolic blood pressure 112 mm[Hg] Joaquina Bridenthal ILLUMINATING ENGINEER - SHANK RANDER Work Phone: [facility] 05-16-2023 13:46-0500 Body mass index (BMI) [Ratio] 28.15 kg/m2 Joaquina Bridenthal ILLUMINATING ENGINEER - SHANK RANDER Work Phone: [facility] 05-16-2023 13:46-0500 Body temperature 98.1 [degF] Joaquina Bridenthal ILLUMINATING ENGINEER - SHANK RANDER Work Phone: [facility] 05-16-2023 13:46-0500 Body weight 74.39 kg Joaquina Bridenthal ILLUMINATING ENGINEER - SHANK RANDER Work Phone: [facility] 05-16-2023 13:46-0500 Diastolic blood pressure 89 mm[Hg] Joaquina Bridenthal ILLUMINATING ENGINEER - SHANK RANDER Work Phone: [facility] 05-16-2023 13:46-0500 Heart rate 98 /min Joaquina Bridenthal ILLUMINATING ENGINEER - SHANK RANDER Work Phone: [facility] 05-16-2023 13:46-0500 Respiratory rate 18 /min Jaoquina Bridenthal ILLUMINATING ENGINEER - SHANK RANDER Work Phone: [facility] 05-16-2023 13:46-0500 SaO2% (BldA) [Mass fraction] 97 % Joaquina Bridenthal ILLUMINATING ENGINEER - SHANK RANDER Work Phone: [facility] 05-16-2023 13:46-0500 Systolic blood pressure 133 mm[Hg] Joaquina Bridenthal ILLUMINATING ENGINEER - SHANK RANDER Work Phone: [facility] 03-23-2023 09:29-0500 Body mass index (BMI) [Ratio] 25.92 kg/m2 Joaquina Bridenthal ILLUMINATING ENGINEER - SHANK RANDER Work Phone: [facility] [place] 03-23-2023 09:29-0500 Body temperature 97.59 [degF] Joaquina Bridenthal ILLUMINATING ENGINEER - SHANK RANDER Work Phone: [facility] [place] 03-23-2023 09:29-0500 Body weight 68.49 kg Joaquina Bridenthal ILLUMINATING ENGINEER - SHANK RANDER Work Phone: [facility] 03-23-2023 09:29-0500 Diastolic blood pressure 77 mm[Hg] Joaquina Bridenthal ILLUMINATING ENGINEER - SHANK RANDER Work Phone: [facility] 03-23-2023 09:29-0500 Heart rate 98 /min Joaquina Bridenthal ILLUMINATING ENGINEER - SHANK RANDER Work Phone: [facility] 03-23-2023 09:29-0500 Respiratory rate 18 /min Joaquina Bridenthal ILLUMINATING ENGINEER - SHANK RANDER Work Phone: [facility] 03-23-2023 09:29-0500 SaO2% (BldA) [Mass fraction] 99 % Joaquina Bridenthal ILLUMINATING ENGINEER - SHANK RANDER Work Phone: [facility] 03-23-2023 09:29-0500 Systolic blood pressure 116 mm[Hg] Joaquina Bridenthal ILLUMINATING ENGINEER - SHANK RANDER Work Phone: [facility] 11-29-2022 14:12-0400 Body height 162.6 cm Divya Graham MD Work Phone: [facility] 11-29-2022 14:12-0400 Body weight 67.59 kg Divya Graham MD Work Phone: [facility] 11-29-2022 14:12-0400 Diastolic blood pressure 68 mm[Hg] Divya Graham MD Work Phone: [facility] 11-29-2022 14:12-0400 Systolic blood pressure 118 mm[Hg] Divya Graham MD Work Phone: [facility] 10-20-2021 07:24-0400 Body height 163 cm Niharika Lee MD Work Phone: [facility] 10-20-2021 07:24-0400 Body weight 67.59 kg Niharika Lee MD Work Phone: [facility] 10-20-2021 07:24-0400 Diastolic blood pressure 64 mm[Hg] Niharika Lee MD Work Phone: [facility] 10-20-2021 07:24-0400 Systolic blood pressure 104 mm[Hg] Niharika Lee MD Work Phone: [facility] Encounters Encounter Date Encounter Type Care Provider Facility Start: 10-02-2024 End: 10-02-2024 Emergency department patient visit Joaquina Bridenthal UI APPLICATION DEVELOPER-C Work Phone: -Emergency Department Work Phone: Start: 09-11-2024 End: 09-11-[address] Isaura Song DO -[facility] Work Phone: Start: 09-11-2024 End: 09-11-2024 ambulatory Joaquina Bridenthal UI APPLICATION DEVELOPER-C Work Phone: [facility] Work Phone: Start: 07-13-2024 End: 07-13-[address] Fadumo Barreto MD -[facility] Work Phone: Start: 07-13-2024 End: 07-13-2024 ambulatory Joaquina Bridenthal Facility:[facility] Start: 07-12-2024 Encounter for other preprocedural examination Fadumo Barreto [facility] Start: 06-29-2024 ambulatory Joaquina Bridenthal Faci lity:[facility] Start: 06-29-2024 Non-patient / Non-visit Dr. Poonam Barreto MD -[facility] Start: 06-29-2024 End: 06-29-2024 Admission to same day surgery center Dr. Fadumo Barreto MD [facility] Start: 06-29-2024 End: 06-29-2024 ambulatory Joaquina Bridenthal UI APPLICATION DEVELOPER-C Work Phone: [facility] Work Phone: Start: 06-28-2024 End: 06-28-2024 ambulatory Joaquina Bridenthal UI APPLICATION DEVELOPER-C Work Phone: [facility] Work Phone: Start: 06-28-2024 End: 06-28-2024 Patient encounter procedure Nikole Chang CNM -[facility] [place], [facility] Work Phone: Start: 06-28-2024 End: 06-28-2024 ambulatory Joaquina Bridenthal Facility:[facility] Start: 06-25-2024 End: 06-25-[address] Isaura Song DO -[facility] Work Phone: Start: 06-25-2024 End: 06-25-2024 ambulatory Joaquina Bridenthal Facility:[facility] Start: 06-25-2024 End: 06-25-2024 ambulatory Joaquina Bridenthal UI APPLICATION DEVELOPER-C Work Phone: [facility] Work Phone: Start: 06-25-2024 End: 06-25-[address] Isaura Song DO -Laboratory Work Phone: Start: 06-25-2024 End: 06-25-2024 ambulatory Joaquina Bridenthal Facility:[facility] Start: 06-23-2024 End: 06-23-2024 ambulatory Joaquina Bridenthal UI APPLICATION DEVELOPER-C Work Phone: [facility] Work Phone: Start: 06-23-2024 End: 06-23-2024 Patient encounter procedure Nikole Chang CNM -Laboratory Work Phone: Start: 06-23-2024 End: 06-23-2024 ambulatory Joaquina Bridenthal Facility:[facility] Start: 06-21-2024 End: 06-21-2024 ambulatory Joaquina Bridenthal UI APPLICATION DEVELOPER-C Work Phone: [facility] Work Phone: Start: 06-21-2024 End: 06-21-2024 Patient encounter procedure Nikole Chang CNM -[facility] Start: 06-21-2024 End: 06-21-2024 Patient encounter procedure Nikole Bernardo CNM -[facility] Work Phone: Start: 06-21-2024 End: 06-21-2024 [facility] Start: 06-21-2024 End: 06-21-2024 ambulatory Joaquina [facility] Facility:[facility] Start: 05-19-2024 End: 05-19-[address] Isaura Song DO -Laboratory Work Phone: Start: 05-19-2024 End: 05-19-2024 ambulatory Isaura Song Facility:[facility] Start: 05-17-2024 End: 05-17-[address] Isaura Song DO -Laboratory Work Phone: Start: 05-17-2024 End: 05-17-2024 ambulatory Isauraplacido Song Facility:[facility] Start: 05-08-2024 End: 05-08-2024 Patient encounter procedure Samanta Jaramillo UI APPLICATION DEVELOPER-C -Laboratory Work Phone: Start: 05-08-2024 End: 05-08-2024 ambulatory Samanta Jaramillo UI APPLICATION DEVELOPER Facility:[facility] Start: 03-26-2024 End: 03-26-2024 Office outpatient new 45 minutes Tia Shruthi CASEY-SHANK RANDER Work Phone: [facility] Comment on above: Contact dermatitis, unspecified contact dermatitis type, unspecified trigger (Primary Dx) Start: 03-25-2024 End: 03-25-2024 Patient encounter procedure Samanta Jaramillo UI APPLICATION DEVELOPER-C -Laboratory Work Phone: Start: 03-25-2024 End: 03-25-2024 [facility] Start: 03-07-2024 End: 03-07-2024 Patient encounter procedure Samanta Stamford UI APPLICATION DEVELOPER-C -Laboratory Work Phone: Start: 03-07-2024 End: 03-07-2024 ambulatory [place] [facility] Facility:[facility] Start: 02-23-2024 End: 02-23-2024 ambulatory [facility] Facility:[facility] Start: 02-23-2024 End: 02-23-2024 ambulatory [facility] Facility:[facility] Start: 02-21-2024 End: 02-21-2024 ambulatory [facility] Facility:[facility] Start: 02-16-2024 End: 02-16-2024 ambulatory No Primary Care Physician Facility:[facility] [facility] Start: 02-15-2024 End: 02-15-2024 ambulatory [facility] Facility:[facility] Start: 02-13-2024 Encounter for gynecological examination (general) (routine) without abnormal findings Kristina [facility] Start: 02-13-2024 End: 02-13-[facility] [place] [facility] Start: 02-13-2024 End: 02-13-2024 ambulatory [facility] Facility:[facility] Start: 09-15-2023 End: 09-15-2023 Office outpatient visit 15 minutes Joaquina Pyle CNP Work Phone: [facility] Comment on above: Anxiety and depressi on (Primary Dx); Skin sensation disturbance Start: 09-15-2023 End: 09-15-2023 ambulatory [facility] Start: 07-14-2023 End: 07-15-2023 [facility] Start: 07-14-2023 End: 07-14-2023 Patient encounter procedure Nancy Vasquez APRN.CNP Work Phone: OB/Gynecology Comment on above: PCOS (polycystic ova kenneth syndrome) (Primary Dx); Irregular menses; Anxiety and depression; History of bulimia; History of anorexia nervosa; Provided repeat prescription for oral contraceptive; Overweight with body mass index (BMI) of 29 to 29.9 in adult Start: 06-16-2023 End: 06-16-2023 ambulatory JOAQUINA CARMEN Facility:[facility] Start: 06-16-2023 End: 06-16-2023 Patient encounter procedure Nancy Vasquez APRN.CNP Work Phone: OB/Gynecology Comment on above: PCOS (polycystic ova kenneth syndrome) (Primary Dx); Elevated LDL cholesterol level; IFG (impaired fasting glucose); Irregular menses; Anxiety and depression; History of bulimia; History of anorexia nervosa; Overweight with body mass index (BMI) of 29 to 29.9 in adult Start: 06-15-2023 End: 06-15-2023 Office outpatient visit 15 minutes Joaquina Bridenthal ILLUMINATING ENGINEER - SHANK RANDER Work Phone: [facility] Comment on above: Anxiety and depressi on (Primary Dx); PCOS (polycystic ovarian syndrome) Start: 06-15-2023 End: 06-15-2023 Office outpatient visit 25 minutes Joaquina Bridenthal ILLUMINATING ENGINEER - SHANK RANDER Work Phone: [facility] Comment on above: Anxiety and depressi on (Primary Dx); PCOS (polycystic ovarian syndrome) Start: 06-15-2023 End: 06-15-2023 [facility] Start: 05-18-2023 End: 05-19-2023 ambulatory NANCY VASQUEZ Facility:[facility] Start: 05-16-2023 End: 05-16-2023 Office outpatient visit 15 minutes Joaquina Bridenthal ILLUMINATING ENGINEER - SHANK RANDER Work Phone: [facility] Comment on above: Anxiety and depressi on (Primary Dx); Weight gain Start: 05-16-2023 End: 05-16-2023 Office outpatient visit 25 minutes Joaquina Bridenthal ILLUMINATING ENGINEER - SHANK RANDER Work Phone: [facility] Comment on above: Anxiety and depressi on (Primary Dx); Weight gain Start: 05-16-2023 End: 05-16-2023 [facility] Start: 03-23-2023 End: 03-23-2023 Patient encounter procedure Joaquina Bridenthal ILLUMINATING ENGINEER - SHANK RANDER [facility] Work Phone: Start: 03-23-2023 End: 03-23-2023 Periodic preventive med est patient 18-39 yrs Joaquina Bridenthal ILLUMINATING ENGINEER - SHANK RANDER Work Phone: [facility] Comment on above: Annual physical exam (Primary Dx); Screening for deficiency anemia; Screening for cholesterol level; Anxiety and depression Start: 03-23-2023 End: 03-23-2023 ambulatory [facility] Start: 03-23-2023 End: 03-23-2023 Encounter for general adult medical examination without abnormal findings [facility] Start: 03-08-2023 End: 03-08-2023 ambulatory [facility] Start: 11-29-2022 End: 11-29-2022 ambulatory DIVYA GRAHAM Facility:[facility] Start: 11-29-2022 End: 11-29-2022 Patient encounter procedure Divya Graham MD Work Phone: OB/Gynecology Comment on above: Encounter for gyneco logical examination (general) (routine) without abnormal findings (Primary Dx); PCOS (polycystic ovarian syndrome) Start: 11-29-2022 End: 11-29-2022 Patient encounter status Divya Graham MD Work Phone: [facility] Start: 09-27-2022 Refill Rama palomo APRN.CNM Work Phone: OB/Gynecology Comment on above: Refill Request; Refi ll Request Start: 06-30-2022 ambulatory Niharika Ramirez Work Phone: OB/Gynecology Comment on above: Control Start: 05-20-2022 Telephone encounter Niharika allen MD Work Phone: OB/Gynecology Comment on above: Orders Start: 04-30-2022 ambulatory Niharika Ramirez Work Phone: OB/Gynecology Comment on above: Period Update Start: 04-12-2022 ambulatory Niharika Ramirez Work Phone: OB/Gynecology Comment on above: Period/ Giovanna t Update Start: 03-30-2022 Telephone encounter Niharika allen MD Work Phone: OB/Gynecology Comment on above: Follow Up Start: 03-30-2022 End: 03-30-2022 ambulatory Niharika Lee MD Work Phone: OB/Gynecology Comment on above: PCOS (polycystic ova kenneth syndrome) (Primary Dx); Missed menses Start: 03-30-2022 End: 03-30-2022 Telemedicine consultation with patient Niharika Lee MD Work Phone: [facility] Start: 03-22-2022 Telephone encounter Niharika allen MD Work Phone: OB/Gynecology Comment on above: Patient Question Start: 03-19-2022 Telephone encounter Niharika allen MD Work Phone: OB/Gynecology Comment on above: Patient Question Start: 10-28-2021 ambulatory Divya Graham MD Work Phone: [facility] Start: 10-28-2021 Manual pelvic examination Deid rei Graham MD Work Phone: OB/Gynecology Comment on above: Question regarding P ELVIC US WHI Start: 10-23-2021 End: 10-23-2021 ambulatory Divya Graham MD Work Phone: OB/Gynecology Comment on above: [employer] Ultrasound Start: 10-23-2021 End: 10-23-2021 Patient encounter procedure Divya Graham MD Work Phone: [facility] Start: 10-20-2021 End: 10-20-2021 Patient encounter procedure Niharika Lee MD Work Phone: OB/Gynecology Comment on above: Encounter for gyneco logical examination without abnormal finding (Primary Dx); Encounter for screening for malignant neoplasm of cervix; Irregular intermenstrual bleeding Start: 10-20-2021 End: 10-20-2021 Patient encounter status Niharika Lee MD Work Phone: OB/Gynecology Procedures Date Procedure Procedure Detail Performing Clinician Start: 10-02-2024 Transvaginal echography Joaquina Morales UI APPLICATION DEVELOPER-C Work Phone: Start: 06-29-2024 Dilation and curetta ge of uterus Joaquina Tennilleenthal UI APPLICATION DEVELOPER-C Work Phone: Start: 06-28-2024 Transvaginal obstetr ic ultrasonography Joaquina Tennilleenthal UI APPLICATION DEVELOPER-C Work Phone: Start: 06-21-2024 Urine culture Joaquina Martine ridenthal UI APPLICATION DEVELOPER-C Work Phone: Start: 03-23-2023 Lipid 1996 panel - S yin or Plasma Joaquina Tennilleenthal ILLUMINATING ENGINEER - SHANK RANDER Work Phone: Start: 10-20-2021 Urine test visual color cmprsn meths Niharika Lee MD Work Phone: Start: 10-20-2021 Microscopic observat ion [Identifier] in Cervix by Cyto stain Joaquina Tennilleenthal ILLUMINATING ENGINEER - SHANK RANDER Work Phone: Start: 06-15-2016 Adult depression scr eening assessment Niharika Lee MD Work Phone: Plan of Treatment Date Care Activity Detail Author Start: 2057 RSV Immunization age d 60 or older (1 - 1-dose 60+ series) RSV Immunization aged 60 or older (1 - 1-dose 60+ series) [facility] Start: 07-07-2047 Zoster Vaccines (1 o f 2) Zoster Vaccines (1 of 2) [facility] Start: 03-23-2028 Lipid panel Lipid Panel [facility] Start: 10-20-2024 PAP TESTING PAP TESTING [facility] Start: 10-20-2024 Screening for malign ant neoplasm of cervix [facility] Start: 10-02-2024 [facility] Start: 06-29-2024 Ambulation without limitation [facility] Start: 06-29-2024 Medical regimen orde rs management [facility] Start: 06-29-2024 Medication education [facility] Start: 06-29-2024 Patient discharge [facility] Start: 06-29-2024 Procedure discontinued [facility] Start: 06-29-2024 Taking patient vital signs [facility] Start: 06-29-2024 Vital signs measurements [facility] Start: 06-29-2024 [facility] Start: 06-29-2024 Anesthesia incomplete/missed ANES INCOMPL/MISSED AB PX [facility] Start: 06-29-2024 Tx incomplete aborti on any trimester surgical TREATMENT OF MISCARRIAGE [facility] Start: 03-23-2024 COVID-19 Vaccine (#1) COVID-19 Vacci ne (#1) [facility] Comment on above: Postponed from 01/06 (Patient Refused) Start: 03-23-2024 COVID-19 Vaccine ( season) COVID-19 Vaccine ( season) [facility] Comment on above: Postponed from 12/24 (Patient Refused) Start: 03-23-2024 DTaP/Tdap/Td Vaccine s (7 - Td or Tdap) DTaP/Tdap/Td Vaccines (7 - Td or Tdap) [facility] Comment on above: Postponed from 11/17 (Patient Refused) Start: 03-23-2024 Hepatitis C screening Hepatitis C Sc reening [facility] Comment on above: Postponed from 07/06 (Patient Refused) Start: 03-23-2024 HIV screening HIV Screening [facility] Comment on above: Postponed from 07/06 (Patient Refused) Start: 03-13-2024 End: 03-13-2024 Patient encounter procedure 03/13/2024 7:40 AM EST Office Visit [facility] [address] [place] [address] Joaquina Morales, ILLUMINATING ENGINEER - SHANK RANDER [address] [place] [address] [facility] Start: 12-25-2023 Influenza vaccination Influenz a Vaccine (Season Ended) [facility] Start: 10-23-2023 Influenza vaccination Influenza Vacc ine (#1) [facility] Comment on above: Postponed from 12/24 (Patient Refused) Start: 09-21-2023 Depression Monitoring Depression Mon itoring [facility] Start: 09-21-2023 Depresssion Monitoring Depresssion M onitoring [facility] Start: 09-14-2023 End: 09-14-2023 Patient encounter procedure 09/14/2023 1:00 PM EDT Office Visit [facility] [address] [place] [address] [place] [address] Bridenthal, Joaquina, ILLUMINATING ENGINEER - SHANK RANDER [address] [place] [address] [place] [address] [facility] Start: 06-20-2023 End: 06-20-2023 Patient encounter procedure 06/20/2023 2:00 PM EST Office Visit [facility] [address] [place] [address] [place] [address] Bridenthal, Joaquina, ILLUMINATING ENGINEER - SHANK RANDER [address] [place] [address] [place] [address] [facility] Start: 06-15-2023 End: 06-15-2023 Patient encounter procedure 06/15/2023 7:40 AM EST Office Visit [facility] [address] [place] [address] [place] [address] Bridenthal, Joaquina, ILLUMINATING ENGINEER - SHANK RANDER [address] [place] [address] [place] [address] [facility] Start: 04-25-2023 Depression Assessment Depression Ass essment [facility] Start: 03-23-2023 End: 03-23-2024 CBC panel - Blood by Automated count CBC Lab Routine Screening for deficiency anemia Annual physical exam Expected: 03/23/2023 (Approximate), Expires: 03/23/2024 [facility] Comment on above: Expected: 03/23/2023 (Approximate), Expires: 03/23/2024 Start: 03-23-2023 End: 03-23-2024 Comprehensive metabolic 1998 panel - Serum or Plasma Comprehensive metabolic panel Lab Routine Annual physical exam Expected: 03/23/2023 (Approximate), Expires: 03/23/2024 [facility] Work Phone: Comment on above: Expected: 03/23/2023 (Approximate), Expires: 03/23/2024 Start: 03-23-2023 End: 03-23-2024 Lipid 1996 panel - Serum or Plasma Lipid panel Lab Routine Screening for cholesterol level Annual physical exam Expected: 03/23/2023 (Approximate), Expires: 03/23/2024 [facility] Comment on above: Expected: 03/23/2023 (Approximate), Expires: 03/23/2024 Start: 12-24-2022 Covid-19 Vaccine () Covid-19 Vaccine () [facility] Start: 12-24-2022 Influenza vaccination C [facility] Start: 05-20-2022 End: 07-20-2022 Progesterone [Mass/volume] in Serum or Plasma PROGESTERONE BLD Lab Routine Anovulation Expected: 05/20/2022, Expires: 07/20/2022 [facility] Work Phone: Comment on above: Expected: 05/20/2022 , Expires: 07/20/2022 Start: 04-25-2022 DEPRESSION ASSESSMENT [facility] Start: 04-10-2022 PAP TESTING PAP TESTING [facility] Start: 03-19-2022 End: 05-19-2022 Choriogonadotropin.beta subunit [Units/volume] in Serum or Plasma HCG QUANTITATIVE Lab Routine Missed menses Expected: 03/19/2022, Expires: 05/19/2022 [facility] Work Phone: Comment on above: Expected: 03/19/2022 , Expires: 05/19/2022 Start: 12-24-2021 Influenza vaccination C [facility] Start: 10-20-2021 End: 12-20-2021 Thyrotropin [Units/volume] in Serum or Plasma [facility] Work Phone: Comment on above: Expected: 10/20/2021 , Expires: 12/20/2021 Start: 04-25-2021 DEPRESSION ASSESSMENT DEPRESSION ASS ESSMENT [facility] Start: 10-23-2020 COVID-19 VACCINE (2 - Booster for Randy series) COVID-19 VACCINE (2 - Booster for Randy series) [facility] Start: 11-18-2019 Urine microalbumin profile [facility] Start: 06-15-2017 Adult depression screening assessment DEPRESSION SCREENING [facility] Start: 07-07-2015 HEPATITIS C SCREENING HEPATITIS C [facility] Start: 07-07-2015 Hepatitis C screening Hepatitis C [facility] Start: 07-07-2015 HIV SCREENING HIV SCREENING [facility] Start: 07-07-2015 HIV screening HIV Screening [facility] Start: 07-07-2011 PEDS TO ADULT TRANSITION ANNUAL ASSESSMENT PEDS TO ADULT TRANSITION ANNUAL ASSESSMENT [facility] Start: 2009 PEDS TO ADULT TRANSITION INITIAL DISCUSSION PEDS TO ADULT TRANSITION INITIAL DISCUSSION [facility] Start: 07-07-2007 MENINGOCOCCAL B: Consider based on risk (1 of 2 - Risk Bexsero 2-dose series) MENINGOCOCCAL B: Consider based on risk (1 of 2 - Risk Bexsero 2-dose series) [facility] Start: 07-07-2003 Pneumococcal Vaccine : Pediatrics (0 to 5 Years) and At-Risk Patients (6 to 64 Years) (1 of 2 - PCV) Pneumococcal Vaccine: Pediatrics (0 to 5 Years) and At-Risk Patients (6 to 64 Years) (1 of 2 - PCV) [facility] Start: [address]id Panel [facility] PAP FLUID CERVICAL SCREENING PAP FLUID CERVICAL SCREENING Lab Routine Encounter for screening for malignant neoplasm of cervix 10/20/2021 8:07 AM EDT [facility] Work Phone: Patient Education ED Dysfunction al Uterine Bleeding [facility] Work Phone: Patient referral [facility] Work Phone: PELVIC US WHI PELVIC US [facility]I An c Imaging Routine Irregular intermenstrual bleeding Ordered: 10/20/2021 [facility] Work Phone: Comment on above: Ordered: 10/20/2021 Serum progesterone measurement [facility] Immunizations Immunization Date Immunization Notes Care Provider [facility] 08-28-2020 [facility] SARS-CoV-2 Vaccination Joaquina Soloriocaren ILLUMINATING ENGINEER - SHANK RANDER Work Phone: [facility] 06-15-2016 influenza, injectabl e, quadrivalent, contains preservative Niharika Lee MD Work Phone: [facility] 06-15-2016 influenza virus vacc ine, unspecified formulation Joaquina Morales ILLUMINATING ENGINEER - SHANK RANDER Work Phone: [facility] 11-09-2013 meningococcal polysaccharide (groups A, C, Y and W-135) diphtheria toxoid conjugate vaccine (MCV4P) Niharika Lee MD Work Phone: [facility] 04-16-2013 human papilloma viru s vaccine, quadrivalent Niharika Lee MD Work Phone: [facility] 12-27-2012 human papilloma viru s vaccine, quadrivalent Niharika Lee MD Work Phone: [facility] 11-18-2012 human papilloma viru s vaccine, quadrivalent Niharika Lee MD Work Phone: [facility] 11-17-2009 Meningococcal, MCV4, unspecified conjugate formulation(groups A, C, Y and W-135) Niharika Lee MD Work Phone: [facility] 11-17-2009 tetanus toxoid, redu liliam diphtheria toxoid, and acellular pertussis vaccine, adsorbed Niharika Lee MD Work Phone: [facility] 12-10-2008 varicella virus vaccine Hemal Lee MD Work Phone: [facility] 2004 poliovirus vaccine, inactivated Niharika Lee MD Work Phone: [facility] Work Phone: 10-20-2003 measles, mumps and rubella virus vaccine Niharika Lee MD Work Phone: [facility] Work Phone: 09-01-2003 diphtheria, tetanus toxoids and acellular pertussis vaccine Niharika Lee MD Work Phone: [facility] Work Phone: 12-25-1998 DTaP-Haemophilus influenzae type b conjugate vaccine Niharika Lee MD Work Phone: [facility] 12-25-1998 poliovirus vaccine, inactivated Niharika Lee MD Work Phone: [facility] 10-02-1998 varicella virus vaccine Hemal Lee MD Work Phone: [facility] 07-10-1998 measles, mumps and rubella virus vaccine Niharika Lee MD Work Phone: [facility] 03-18-1998 hepatitis B vaccine, pediatric or pediatric/adolescent dosage Niharika Lee MD Work Phone: [facility] 1997 DTaP-Haemophilus influenzae type b conjugate vaccine Niharika Lee MD Work Phone: [facility] 1997 poliovirus vaccine, inactivated Niharika Lee MD Work Phone: [facility] 1997 DTaP-Haemophilus influenzae type b conjugate vaccine Niharika Lee MD Work Phone: [facility] 1997 poliovirus vaccine, inactivated Niharika Lee MD Work Phone: [facility] 1997 DTaP-Haemophilus influenzae type b conjugate vaccine Niharika Lee MD Work Phone: [facility] 1997 hepatitis B vaccine, pediatric or pediatric/adolescent dosage Niharika Lee MD Work Phone: [facility] 1997 poliovirus vaccine, inactivated Niharika Lee MD Work Phone: [facility] 1997 hepatitis B vaccine, pediatric or pediatric/adolescent dosage Niharika Lee MD Work Phone: 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 1.13.159 .[id number] Unknown [id number] 2.16.840.1.285847.3.579 .2.462 Unknown [id number] 2.16.840.1.764717.3.579 .2.462 Unknown [id number] 2.16.840.1.658776.3.579 .2.462 Unknown [id number] 2.16.840.1.864270.3.579 .2.462 Unknown [id number] 2.16.840.1.254557.3.579 .2.462 Unknown [id number] 2.16.840.1.170754.3.579 .2.462 Unknown [id number] 2.16.840.1.860323.3.579 .2.462 Unknown [id number] 2.16.840.1.153886.3.579 .2.462 Unknown [id number] 2.16.840.1.519455.3.579 .2.462 Unknown [id number] 2.16.840.1.027119.3.579 .2.462 Unknown [id number] 2.16.840.1.419415.3.579 .2.462 Unknown [id number] 2.16.840.1.384099.3.579 .2.462 Unknown [id number] 2.16.840.1.798234.3.579 .2.462 Unknown [id number] 2.16.840.1.171761.3.579 .2.462 Unknown [id number] 2.16.840.1.865066.3.579 .2.462 Unknown [id number] 2.16.840.1.245119.3.579 .2.462 Unknown [id number] 2.16.840.1.406944.3.579 .2.462 Unknown [id number] 2.16.840.1.833973.3.579 .2.462 Unknown [id number] 2.16.840.1.316221.3.579 .2.462 Unknown [id number] 2.16.840.1.766787.3.579 .2.462 Unknown [id number] 2.16.840.1.106487.3.579 .2.462 Unknown [id number] 2.16.840.1.562447.3.579 .2.462 Social History Date Type Detail Facility Start: 12-02-2021 End: 10-02-2024 Tobacco smoking status [facility] Never smoked tobacco [facility] Work Phone: Start: 10-20-2021 End: 09-15-2023 Alcohol intake Current drinker of alcohol (finding) [facility] Start: 09-07-2019 History SDOH Alcohol Frequency [address] [facility] Start: 09-07-2019 History SDOH Alcohol Std Drinks [address] [facility] Start: 09-07-2019 History SDOH Alcohol Binge [address] [facility] Start: 09-07-2019 History SDOH Social Connections Phone [address] [facility] Start: 09-07-2019 History SDOH Social Connections Living [address] [facility] Start: 09-07-2019 History SDOH Physica l Activity DPW [address] [facility] Start: 09-07-2019 History SDOH Physica l Activity MPS [address] [facility] Start: 09-07-2019 Education [address] [facility] Start: 1995 Sex Assigned At Female C [facility] Start: 10-10-2021 End: 03-20-2022 Exposure to SARS-CoV-2 (event) Not sure [facility] Start: 12-02-2021 End: 03-26-2024 Tobacco use and exposure Smokeless tobacco non-user [facility] Start: 09-07-2019 End: 03-23-2023 History of Social function [facility] Start: 09-07-2019 End: 03-23-2023 Social connection and isolation panel [facility] Do you belong to any clubs or organizations such as faith groups, unions, fraternal or athletic groups, or school groups? Yes [facility] Are you now , , , , never or living with a partner? Never [facility] How often to you hav e a drink containing alcohol? 2-4 times a month [facility] How many standard dr inks containing alcohol do you have on a typical day? 1 or [address] [facility] How often do you hav e 6 or more drinks on 1 occasion? Less than monthly [facility] How hard is it for y ou to pay for the very basics like food, housing, medical care, and heating Not very hard [facility] Do you feel stress - tense, restless, nervous, or anxious, or unable to sleep at night because your mind is troubled all the time - these days [OSQ] Rather much [facility] (I/We) worried braxton er (my/our) food would run out before (I/we) got money to buy more. Never true [facility] In the past 12 month s, has lack of transportation kept you from medical appointments or from getting medications? No [facility] In the past 12 month s, was there a time when you were not able to pay the mortgage or rent on time? No [facility] Start: 10-16-2021 Gender identity Identifies as female gender (finding) [facility] Start: 10-16-2021 Sexual orientation Heterosexua l (finding) [facility] Start: 03-08-2023 Tobacco use and exposure User of smokeless tobacco [facility] History of tobacco use Chews Tobacco [facility] Start: 03-08-2023 Tobacco Comment Nicotine pouch, [facility] Start: 03-08-2023 Alcohol Comment occ. [facility] Start: 03-26-2024 Alcoholic beverage intake Ex-drinker (finding) [facility] Work Phone: Start: 1995 Sex assigned at Not on file [facility] Work Phone: Start: 06-29-2024 End: 07-10-2024 Sex Female (finding) [facility] NEGATED: Highlighted row Not [facility] Goals Date Patient Goal Desired Activity /State Mental Status Date Assessment Result Facility 06-29-2024 Cognitive function Voice/Name [facility] Work Phone: Clinical Notes 11-27-2012 to 10-02-2024 Note Date & Type Note Facility 10-02-2024 Radiology Diagnostic study note [facility] Imaging Services [address], [place] [address] Transvaginal Non- MR#: [id number] Acct: [id number] Name: DAVID CONTI Rep #: [id number] 5 : 1995 F 29 From: Pa Dewitt MD PCP: Joaquina Morales UI APPLICATION DEVELOPER-C Status: R EG ER Study:Transvaginal Non- Date of Exam: 10/02/24 Exam# [id number] Ordering Dr: Benito Terry DO PROCEDURE: TRANSVAGINAL NON- 10/02/2024 REASON FOR EXAM: VAGINAL BLEEDING TECHNIQUE: Transvaginal pelvic ultrasound COMPARISON: Prior study dated June 28, 2024. FINDINGS: Measurements: Uterus: 7.5 cm x 3.4 cm x 3.2 cm with a volume of 42.6 mL Endometrial Thickness: 2.9 mm it is hyperechoic. Right Ovary: 3.3 cm x 2.6 cm x 2.6 cm with a volume of 11.9 mL. Left Ovary: Not visualized. Uterus: Normal size, myometrial echotexture, and contour. Nabothian cyst. Endometrium: Unremarkable. Right ovary: Normal size and echotexture. Left ovary: Not visualized. Other: No large pelvic mass identified. US/Transvaginal Non- IMPRESSION: Unremarkable examination. Reading Location: [place] [address] CC: UI APPLICATION DEVELOPER-C Joaquina Morales; Dr. Benito Terry, DO ~ Cpa Tax: Signed [facility] 06-29-2024 Consult note [facility] 06-29-2024 Consult note [facility] 06-29-2024 Discharge summary [facility] 06-29-2024 History and physical note [facility] 06-29-2024 Consult note Note Date/Time June 29, 2024 4:24pm [facility] Medical Records Department [address] [place] [id number] Pre-Anesthesia Evaluation 06/29/24 1152 MR#: [id number] Acct: [id number] Name: DAVID CONTI Rep #:[id number] : 1995 28 From: Bay Solares MD PCP: TOMAS Roth Status:R EG SD Y Race: C Location: [place] [address] ASA Classification* ASA Classification ASA Classification: 2 Assessment & Plan Anesthesia* Anesthesia Assessment Anesthesia Assessment: Discussed sedation and/or anesthesia options, risks, benefits, and alternatives with patient/parents/legal guardian/POA. Questions invited. The patient/parents/legal guardian/POA seems to understand and agrees to proceedwith anesthesia plan. Reviewed the physical assessment, medical history, allergy history and patient home medications list prior to surgery/procedure/anesthetic and documented any changes. Performed airway and anesthesia risk assessments. Anesthesia Type Anesthesia Type: MAC Anesthesia Focused Assessment* Airway Assessment Mouth opens: >3 cm Mallampati Score: II Focused Labs Anesthesia Preop lab: CBC CHEMISTRY Potassium 4.0 mmol/L (3.5-5.1) 02/15/24 07:05 02/15/24 Sodium 140 mmol/L (136-145) 02/15/24 07:05 02/15/24 BUN 9 mg/dL (7-18) 02/15/24 07:05 02/15/24 Creatinine 0.82 mg/dL (0.55-1.02) 02/15/24 07:05 02/15/24 Glucose 105 mg/dL (74-106) 02/15/24 07:05 02/15/24 TSH 2.330 uIU/mL (0.358-3.740) 02/15/24 07:05 01/24 07/16 COAG HCG, Quant 23288 mIU/mL (<9 non-preg) H 06/25/24 09:25 Urine Test Negative Negative 10/28/15 09:50 10/28/15 Pre-Assessment Diagnosis/Proposed Procedure Planned Operative Procedure(s): SUCTION D&C Anesthesia History Anesthesia History - personal lines account executive: Anesthesia History - personal lines account executive Hx Hospitalization No 06/28/24 15:22 Any Problems With Anesthesia Yes: NAUSEA 06/28/24 15:22 Cholinesterase deficiency No 06/28/24 15:22 You/Your Family Experience No 06/28/24 15:22 fever (hyperthermia) with Relationship Recent Exposure to Contagious No 05/21/24 11:52 Disease Does patient have nerve No 06/28/24 15:22 stimulator Patient instructed to have device shut off --Does patient have Pacemaker or ICD? When Was Last Pacemaker Check QUESTION #4 FULL TEXT: You/Your Family Experience fever (hyperthermia) with Anesthesia Last Oral Intake Last Oral intake: Last Oral Intake NPO since Meds taken in AM with sips of water? Meds patient instructed to take am of surgery PONV PONV - personal lines account executive: PONV - personal lines account executive Female Yes 06/28/24 15:22 HX of Motion Sickness No 06/28/24 15:22 HX of N/V After Surgery Yes 06/28/24 15:22 Non-Smoker Yes 06/28/24 15:22 Duration of Surgery greater No 06/28/24 15:22 than 60 minutes Number of Risk Factors 3 06/28/24 15:22 PONV Score Moderate Risk 06/28/24 15:22 Height & Weight Height & Weight: Anesthesia: Height & Weight Height 5 ft 4 in 06/28/24 16:33 Weight: 74.843 kg 06/28/24 16:33 Respiratory Assessment Respiratory Assessment - personal lines account executive: Respiratory Tract Infection Hx - personal lines account executive Hx Respiratory Tract Infection No 06/28/24 15:22 STOP Sleep Apnea STOP Sleep Apnea - personal lines account executive: STOP Sleep Apnea - personal lines account executive Hx Hypertension No 06/28/24 15:22 Hx Sleep Apnea No 06/28/24 15:22 CPAP BIPAP Do you snore loudly (louder No 06/28/24 15:22 than talking or can be heard Do you often feel tired/ No 06/28/24 15:22 fatigued/ sleepy during daytime? Has anyone observed you stop No 06/28/24 15:22 breathing during sleep? STOP Results Negative 06/28/24 15:22 QUESTION #5 FULL TEXT : Do you snore loudly (louder than talking or can be heard through closed doors)? Tobacco Use History Tobacco Use History - personal lines account executive: Tobacco Use History - personal lines account executive Tobacco Use Smoking Status Never smoker 06/28/24 15:22 Hx Tobacco Use No 06/28/24 15:22 Years Smoking Packs Smoked per Day Smoking Cessation Date was within the last 15 years Hx Smoking Cessation Date Hx Smoking Cessation Counseling Hematologic Medial History Hematologic Hx - personal lines account executive: Hematologic Medical Hx - trimmer machine Hx of Blood Transfusion No 06/28/24 15:22 Hx of Transfusion in last 3 No 06/28/24 15:22 Months Date of Last Transfusion (if within last 3 months) Ever experience any problems No 06/28/24 15:22 with transfusion(s)? Specify any problems Hx of Preganancy in last 3 No 06/28/24 15:22 Months Nurse Filling Out Transfusion VCHRISTIN 06/28/24 15:22 & Questions: Date: 06/28/24 06/28/24 15:22 Time: 15:23 06/28/24 15:22 Patient unable to answer at this time (ie. confused, unrespo /Reproduction History /Reproductive History - personal lines account executive: /Reproductive Hx- personal lines account executive Hx Now Yes 06/28/24 15:22 Gestational Age (in weeks): EDC: Hx Hx Para Hx Section SAB No 06/28/24 15:22 PFSH Medical History Wears contact lenses Wears glasses Depression Anxiety Injury of head and neck Loss of consciousness Non-smoker Seasonal allergies Vocal cord dysfunction History of miscarriage PCOS (polycystic ovarian syndrome) Anxiety and depression Fatigue Asthma Home Medications ?Medication ?Instructions ?Recorded ?Last Taken ?Type albuterol sulfate 90 mcg/actuation 1 - 2 puff inhalati on Q4H PRN PRN 07/15/14 Unknown History aerosol inhaler (Ventolin HFA) sob multivit-min no.71-iron fum 28 1 cap PO DAILY 06/15/24 Unknown History mg-folate no.1 1 mg-dha 300 mg capsule (PNV-Jackpot) sertraline 50 mg tablet (Zoloft) 50 mg PO QDAY #60 tab s 06/21/24 Unknown Rx Allergy/AdvReac Type Severity Reaction Status Date / Time tree and shrub pollen Allergy Mild Other Verified 06/28/24 15:16 weed pollen Allergy Mild Other Verified 06/28/24 15:16 Family History Grandmother Breast cancer, Onset Age: 45 Maternal Grandfather Myocardial infarction, Onset Age: 51 Maternal Mother Thyroid disorder hypothyroid Surgical History History of wisdom tooth extraction History of ankle surgery Social History adopted: No household members: spouse and other details: Partial custody of 3 step children housing: house number of children: 3 current occupational status: employed 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 current occupational exposures/hazards: No pets and animals: Yes (Avoid litterbox) pets and animals: cat(s), dog(s), turtle(s) and farm animals history of recent travel: No sexually active: Yes Smoking Status: Never smoker alcohol intake: current alcohol intake frequency: a few times a month details: not while substance use type: does not use well-balanced diet: daily or most days caffeine: No eating out: 1-3 times/week during the past year weight has: increased > 10 lbs what type of physical activity do you participate in: walking frequency: 3-4 times per week duration: 15-30 minutes/day tanika/anabaptism: Church seatbelt use: always do you feel safe at home: Yes 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 06/29/24 1152 <Electronically signed by Bay Solares MD > Date _ Bay Solares MD Cosigner Signature: Date CC: ~ Signed [facility] Work Phone: 1(947) 814-549403-06-2025 Radiology Diagnostic study note [facility] Imaging Services [address] [place] [address] Transvaginal w/Preg US MR#: [id number] Acct: [id number] Name: DAVDI CONTI Rep #: [id number] 5 : 1995 F 28 From: Pa Dewitt MD PCP: TOMAS Roth Status: R EG CLI Study:Transvaginal w/Preg US Date of Exam: 06/28/24 Exam# [id number] Ordering Dr: Nikole Chang CNM PROCEDURE: TRANSVAGINAL W/PREG US REASON FOR EXAM: Viability. Irregular menses. COMPARISON: None FINDINGS: Comments: LMP: April 18, 2024. Number of Gestational Sacs: 1. It measures 1.9 cm corresponding to a gestational age of 6 weeks and6 days. Gestational Sac Shape: Normal Number of Fetuses: 1 Heart Rate: Not detected at this time. (Average) Yolk Sac: Present and unremarkable. Placenta: Presently not well-visualized Amniotic Fluid Volume: Subjectively normal for gestational age. Uterine Abnormalities: Maternal uterus is unremarkable. Ovaries / Adnexa: Both maternal ovaries are visualized and unremarkable. DIMENSIONS: Parameter Measurement / EGA [place] Rump Length: 4 mm/6 weeks and 2 days Gestational Sac: 1.9 cm/6 weeks and 6 days Yolk Sac: 3 mm/ ESTIMATED GESTATIONAL AGE: By Ultrasound: 6 weeks 4 days. By LMP: Unknown. ESTIMATED DATE OF DELIVERY: By Ultrasound: February 17, 2025. By LMP: US/Transvaginal w/Preg US IMPRESSION: Single intrauterine gestation with a mean gestational age of 6 weeks and 4 days. No cardiac activity detected at this time. Follow-up recommended. Reading Location: [place] CC: ALIX Chang; UI APPLICATION DEVELOPER-C Joaquina Morales ~ Cpa Tax: Signed [facility]03-01-2025 Consult note Author Bay Solares [facility] Note Date/Time June 29, 2024 3:31 pm [facility] Medical Records Department [address] [place] [address] Anesthesia Postop Eval II 06/29/24 1530 MR#: [id number] Acct: [id number] Name: DAVID CONTI Rep #:[id number] 5 : 1995 28 From: Bay Solares MD PCP: TOMAS Roth Status:R EG SDC Y Race: C Location: [place] [address] Anesthesia Postop Eval I Sum Postop Eval Completion status Anesthesia document: Postop Eval 1 completed: Yes Anesthesia Postop Eval I Summary Anesthesia Postop Eval I Summary: Anesthesia Postop Eval I: Assessment Summary Airway patent Yes 06/29/24 15:25 ELEVATOR EXAMINER.PKEL Spontaneous unlabored Yes 06/29/24 15:25 ELEVATOR EXAMINER.PKEL respirations Mental status Awake,Calm 06/29/24 15:25 ELEVATOR EXAMINER.PKEL nausea No 06/29/24 15:25 ELEVATOR EXAMINER.PKEL Vomiting No 06/29/24 15:25 ELEVATOR EXAMINER.PKEL Anesthesia Postop Eval I: Fluid Summary Crystalloid volume administer 250 06/29/24 15:25 ELEVATOR EXAMINER.PKEL (ml) Colloids volume administered ( ml) Blood Product volume administered (ml) Total IV fluid infused 250 06/29/24 15:25 ELEVATOR EXAMINER.PKEL Anesthesia Postop Eval I: Summary Notes Anesthesia Complication No 06/29/24 15:25 ELEVATOR EXAMINER.PKEL Anesthesia Complication Comment: Post-operative progress note Anesthesia: Postop Eval II Evaluation Mental status: Awake Pain Level: 0 nausea: No Vomiting: No 06/29/24 1531 <Electronically signed by Bay Solares MD > Date _ Bay Solares MD Cosigner Signature: Date CC: ~ Signed [facility] Work Phone: 1(380) 420-519902-27-2025 Evaluation note* Diagnosis Onset Date Resolution Status Admit Date Anxiety and depression acute Fe [facility] 2024 10:47am Asthma acute June 21, 2024 10:47am Infertility acute May 10:47am PCOS (polycystic ovarian syndrome) acute June 21 10:47am Early stage of resolved June 21, 2024 10:47am Family history of breast cancer resolved June 21 10:47am Family history of Alcaraz syndrome resolved June 21 10:47am Hx of one miscarriage resolved Feb ruary 2024 10:47am resolved June 21, 2024 10:47am Supervision of high-risk resolved June 21 10:47am Anxiety and depression acute [facility] 2024 12:36pm Asthma acute June 25 12:36pm Infertility acute June 25 12:36pm PCOS (polycystic ovarian syndrome) acute June 25, 2024 12:36pm Early stage of resolved June 25, 2024 12:36pm Family history of breast cancer resolved June 25, 2024 12:36pm Family history of Alcaraz syndrome resolved June 25, 2024 12:36pm Hx of one miscarriage resolved Jun 12:36pm resolved June 25 12:36pm Supervision of high-risk resolved June 25, 2024 12:36pm Threatened affectin g intrauterine resolved June 12:36pm Missed acute June 11:39am [facility] Work Phone: 1([phone]) 676-404702-27-2025 Evaluation note* Diagnosis Onset Date Resolution Status Admit Date Anxiety and depression acute Fe bruary 2024 10:47am Asthma acute June 21, 2024 10:47am Infertility acute May 10:47am PCOS (polycystic ovarian syndrome) acute June 21 10:47am Early stage of resolved June 21, 2024 10:47am Family history of breast cancer resolved June 21 10:47am Family history of Alcaraz syndrome resolved June 21 10:47am Hx of one miscarriage resolved Feb ruary 2024 10:47am resolved June 21, 2024 10:47am Supervision of high-risk resolved June 21 10:47am Anxiety and depression acute [facility] 2024 12:36pm Asthma acute June 25 12:36pm Infertility acute June 25 12:36pm PCOS (polycystic ovarian syndrome) acute June 25, 2024 12:36pm Early stage of resolved June 25, 2024 12:36pm Family history of breast cancer resolved June 25, 2024 12:36pm Family history of Alcaraz syndrome resolved June 25, 2024 12:36pm Hx of one miscarriage resolved Jun 12:36pm resolved June 25 12:36pm Supervision of high-risk resolved June 25, 2024 12:36pm Threatened affectin g intrauterine resolved June 12:36pm Missed acute June 11:39am Patient requested test acute [facility] 2024 10:33am [facility] Work Phone: 1([phone]) 729-129902-27-2025 Evaluation note* Diagnosis Onset Date Resolution Status Admit Date Anxiety and depression acute Fe bruary 2024 10:47am Asthma acute June 21, 2024 10:47am Infertility acute May 10:47am PCOS (polycystic ovarian syndrome) acute June 21 10:47am Early stage of resolved June 21, 2024 10:47am Family history of breast cancer resolved June 21 10:47am Family history of Alcaraz syndrome resolved February 27th, 2 025 10:47am Hx of one miscarriage resolved Feb ruary 2024 10:47am resolved June 21, 2024 10:47am Supervision of high-risk resolved June 21, 025 10:47am Anxiety and depression acute [facility] 2024 12:36pm Asthma acute June 25 12:36pm Infertility acute June 25 12:36pm PCOS (polycystic ovarian syndrome) acute June 25, 2024 12:36pm Early stage of resolved June 25, 2024 12:36pm Family history of breast cancer resolved June 25, 2024 12:36pm Family history of Alcaraz syndrome resolved June 25, 2024 12:36pm Hx of one miscarriage resolved Mar ch 2024 12:36pm resolved June 25 12:36pm Supervision of high-risk resolved June 25, 2024 12:36pm Threatened affectin g intrauterine resolved June 12:36pm Missed acute June 11:39am Patient requested test acute [facility] 2024 10:33am Infertility acute September 11 9:47am Missed acute September 11, 2024 9:47am PCOS (polycystic ovarian syndrome) acute September 11, 2024 9 :47am [facility] Work Phone: 1(107) 593-478412-02-2024 History of Present illness Narrative* Celeste Hawkins, JACINTO-SANDIP - 03/26/2024 2:40 PM EST Subjective Patient ID: David Conti is a 28 y.o. female. They present today with a chief complaint of Rash. History of Present Illness Patient is a 28 y/o female c/o red, raised, rash to right ABD, neck, chest x5 days. Denies ingestion of new foods/drinks, use of new detergents/soap/conditioner/shampoos. Patient reports symptoms began shortly after utilizing [employer]. Patient denies symptoms of fever, chills, bodyaches, lethargy, weakness, chest pain/tightness/pressure, SOB, wheezing, N/V/D, ABD pain. No OTC medication reported to be taken. Rash Past Medical History Allergies as of 03/26/2024 - Reviewed 03/26/2024 Allergen Reaction Noted Bee pollen Other 08/23/2012 (Not in a hospital admission) No past medical history on file. No past surgical history on file. reports that she has never smoked. She has never used smokeless tobacco. She reports that she does not currently use alcohol. Review of Systems Review of Systems Constitutional: Negative. HENT: Negative. Eyes: Negative. Cardiovascular: Negative. Gastrointestinal: Negative. Endocrine: Negative. Genitourinary: Negative. Musculoskeletal: Negative. Skin: Positive for rash. Allergic/Immunologic: Negative. Neurological: Negative. Hematological: Negative. Psychiatric/Behavioral: Negative. Objective Vitals: 03/26/24 1445 BP: 125/74 Pulse: 90 Resp: 20 Temp: 37.2 C (98.9 F) TempSrc: Oral SpO2: 98% Weight: 73.9 kg (163 lb) Height: 1.613 m (5' 3.5) No LMP recorded. Physical Exam Constitutional: Comments: Patient A/O x4, LOC 5, calm and cooperative. Patient self-ambulatory to treatment area and is in no acute distress. HENT: Head: Normocephalic and atraumatic. Right Ear: Tympanic membrane normal. Left Ear: Tympanic membrane normal. Nose: Nose normal. Mouth/Throat: Mouth: Mucous membranes are dry. Pharynx: Oropharynx is clear. Eyes: Extraocular Movements: Extraocular movements intact. Pupils: Pupils are equal, round, and reactive to light. Cardiovascular: Rate and Rhythm: Normal rate and regular rhythm. Pulses: Normal pulses. Heart sounds: Normal heart sounds. Pulmonary: Effort: Pulmonary effort is normal. Breath sounds: Normal breath sounds. Abdominal: General: Abdomen is flat. Palpations: Abdomen is soft. Musculoskeletal: General: Normal range of motion. Cervical back: Neck supple. Skin: Capillary Refill: Capillary refill takes less than 2 seconds. Comments: Multiple erythematous, raised, wheals present to right hip, ABD, neck. Blanchable and pruritic to touch. No open tissue or active exudates. All other visible skin intact Neurological: General: No focal deficit present. Mental Status: She is oriented to person, place, and time. Psychiatric: Mood and Affect: Mood normal. Behavior: Behavior normal. Procedures Point of Care Test & Imaging Results from this visit No results found for this visit on 03/26/24. No results found. Diagnostic study results (if any) were reviewed by TRACIE Perez. Assessment/Plan Allergies, medications, history, and pertinent labs/EKGs/Imaging reviewed by TRACIE Perez. Medical Decision Making Patient to follow up with dermatology if symptoms persist. Will treat with prednisone taper and triamcinolone cream. At time of discharge, patient was clinically well-appearing and appropriate for outpatient management. The patient/parent/guardian was educated regarding diagnosis, supportive care, OTC and Rx medications. The patient/parent/guardian was given the opportunity to ask questions prior to discharge. They verbalized understanding of discussion of treatment plan, expected course of illness and/or injury, indications on when to return to , when to seek further evaluation in ED/call 911, and the needto follow up with PCP and/or specialist as referred. Patient/parent/guardian was provided with work/school documentation if requested. Patient stable upon discharge. Orders and Diagnoses Diagnoses and all orders for this visit: Contact dermatitis, unspecified contact dermatitis type, unspecified trigger - predniSONE (Deltasone) 10 mg tablet; Take 4 tablets (40 mg) by mouth once daily for 3 days, THEN 3 tablets (30 mg) once daily for 3 days, THEN 2 tablets (20 mg) once daily for 3 days, THEN 1 tablet(10 mg) once daily for 3 days. Take in the mornings with food. - triamcinolone (Kenalog) 0.1 % cream; Apply a thin film topically to affected areas 2-3 times daily as needed for rash/itching Medical Admin Record Patient disposition: Home documented in this [facility] Work Phone: [phone]) 811-729605-23-2024 Evaluation + Plan note* Assessment & Plan Note - JACINTO Roth CNP - 09/15/2023 4:40 PM EDTAssociated Problem(s): Anxiety and depression Stable. Continue Wellbutrin 300 mg daily [place] [id number] Evaluation + Plan note* Assessment & Plan Note - JACINTO Roth CNP - 09/15/2023 4:40 PM EDTAssociated Problem(s): Skin sensation disturbance Left foot exam unremarkable and currently asymptomatic. Likely superficial nerve inflammation. Recommend avoiding shoes that are tight across the top of the foot, ice and elevate 2-3 times daily and follow-up if fails to resolve. Unknown etiology at this time otherwise [id number] Miscellaneous Notes* Assessment & Plan Note - JACINTO Roth CNP - 09/15/2023 4:40 PM EDTAssociated Problem(s): Anxiety and depression Stable. Continue Wellbutrin 300 mg daily * Assessment & Plan Note - JACINTO Roth CNP - 09/15/2023 4:40 PM EDTAssociated Problem(s): Skin sensation disturbance Left foot exam unremarkable and currently asymptomatic. Likely superficial nerve inflammation. Recommend avoiding shoes that are tight across the top of the foot, ice and elevate 2-3 times daily and follow-up if fails to resolve. Unknown etiology at this time otherwise documented in this [facility]05-23-2024 History of Present illness Narrative* Tracey Ordaz - 09/15/2023 1:00 PM EDT Patient was identified by name and Date of . * JACINTO Roth CNP - 09/15/2023 1:00 PM EDT Images from the original note were not included. 09/15/2023 David Conti (: 1995) is a 28 y.o. female , Established patient, here for evaluation of thefollowing chief complaint(s): Medication Check and Foot Problem [...] Yearly Wellness Visit. SUBJECTIVE/OBJECTIVE: HPI - David Conti (: 1995) is a 28 y.o. female , Established patient, here for the evaluation ofthe following chief complaint(s): Medication Check and Foot [...] happen intermittently through the day (?50 times orso)- lasts only for a few seconds or so. No swelling or redness noted. Currently asymptomatic Prior to Admission medications Medication Sig Start Date End Date Taking? Authorizing Provider buPROPion XL (Wellbutrin XL) 300 MG 24 hr tablet take 1 tablet by mouth every morning DO NOT CRUSH,CHEW, AND/OR DIVIDE 09/08/23 Yes Tara Herrera APRN - SANDIP Devine 0.15-30 MG-MCG tablet Take 1 tablet by mouth daily. Yes Historical Provider, metFORMIN (Glucophage) 500 MG tablet Take 1 tablet by mouth in the morning and 1 tablet in the evening. Take with meals. 05/18/23 09/15/23 Yes Historical Provider, naltrexone (Depade) 50 MG tablet Take 25 mg by mouth in the morning and 25 mg in the evening. Yes Historical Provider, Fhkumxoe-Oif-Yg-FA (/IRON PO) Take 1 tablet by mouth [...] CNP 09/15/2023 4:40 PM documented in this [facility]05-23-2024 Instructions* Patient Instructions* JACINTO Roth CNP - 09/15/2023 1:00 PM EDT Ice and elevate foot couple times a day, be careful not to wear shoes that pinch/pressure to much on top of foot. documented in this [facility]03-21-2024 NoteHNO ID: [id number] Author: NANCY VASQUEZ APRN.SHANK RANDER Service: ? Author Type: Nurse Practitioner Type: [...] ago. Irregular menses - Menses 03/17/2023 LMP 04/26-3 spotting No contraception. 20 lb weight gain [...] with fruit S - none D - 1830 protein, pasta/potato/rice/sweet potato and veg - asparagus, cucumber salad, winter and summer squash/salad S - none Fluids - water, unsweetened tea Bedtime - She feels the medication is helping to lessen hunger and craving to candy controlled Exercise: stable sedentary job at [employer]. 1 mile daily walk with dog Stress: [...] by mouth every morning. PNV/iron/folic acid ( XANHDBI-ZBMI-XJ ORAL) Take 1 tablet by mouth once daily. albuterol HFA (PROVENTIL HFA, VENTOLIN HFA) 90 mcg/actuation inhaler Inhale 2 Puffs as instructed every 4 hours as needed. 1 Inhaler 0 No current facility-administered medications for this visit. Occupation: [employer] Contraception: none BP 126/82 Pulse 80 Wt [...] are any adverse effec (more content not included)...[facility]03-21-2024 Instructions* Patient Instructions* Nancy Vasquez APRN.SHANK RANDER - 07/14/2023 8:28 AM EDT The addition [...] body s hormonal system, which can lead toweight gain. Naltrexone combats this unhealthy cycle. Improve mood: Combination LDN weight loss medications trigger an increase in serotonin and dopamineproduction, which decreases anxiety and stress and reduces emotional eating. https://www.Drippler.com/naltrexone#:~:text=Regulate%20appetite%3A%20Nalt rexone%20helps%20normalize,may%20lead%20to%20weight%20loss. Does Wellbutrin cause weight loss? It can. Bupropion (the generic form of Wellbutrin) was initially prescribed as an antidepressant. It is the only antidepressant associated with weight loss (Ernesto, 2019). Healthcare providers noticed that mostly pleasant side effect, and today bupropion is sometimes prescribed as part of amedication for weight loss (naltrexone/bupropion, brand name Contrave), as well as a stop- smoking aid (brand name Zyban). As far as the evidence that bupropion by itself causes weight loss: A 2016 study that analyzed the long-term weight loss effect of various antidepressant medications found that non-smokers who took bupropion lost 7.1 pounds over two years. (This effect was not seen in smokers). Users of the other antidepressants in the study gained weight (Arterburn, 2016). Bupropion seems to be effective for [...] bupropion, which is associated with weight loss (Ernesto, 2019). https://ro.co/health-guide/lxonndsfmn-wtc-kcbmgw-loss/ Bupropion and naltrexone: Patient drug information Access Leikr Online for additional drug information, tools, and databases. Copyright 5319-0932 [employer]. All rights reserved. (For additional information see Bupropion and naltrexone: Drug information) Contrave (naltrexone/bupropion) Patient Information Who Is Contrave [...] to take it. Do not take more than1 dose of Contrave at a time. Is [...] mental illness, taking bupropion may cause your conditionto get worse, especially within the first few months of treatment. Let your doctor know if you experience an increase in symptoms of depression, anxiety, irritability, suicidal thoughts, agitation, anger, or other unusual changes in behavior or mood. Seizures There is a risk of having a seizure when you take Contrave. The risk of seizure is higher in peoplewho take higher doses of Contrave, have certain [...] some people who were manic or depressed inthe past, or who have bipolar disease, to [...] doctor if you are at risk for angle- closure glaucoma and do not use Contrave if you are at risk. Low Blood Sugar (Hypoglycemia) Weight loss can cause low blood sugar in people with type 2 diabetes who also take medicines used to treat type 2 diabetes (such as insulin or sulfonylureas). You should check your blood sugar beforeyou start taking Contrave and while you take Contrave. This is not intended to be a complete list. For additional information please see the public relations sales marketing s website: https://www.contrave.[employer]. Oral Contraceptives: The Pill Beginning the Pill [...] active pills and only 4 placebo pills. Theseare formulated to give you a chief solution architect period. Unless otherwise instructed, you should start your pills the Tuesday following your first day of bleeding with your next period (if your period starts on a Tuesday, you should start pills the same day) Read your information packet that comes with the pills. Pill Benefits The pill is the most popular method of reversible control being used today. Millions of womenrely on oral contraceptives as their control method. It is important to have an examination by your physician to determine if the pill is safe for you. There are several advantages associated with the pill: it is 97-98% effective when used correctly; may improve acne; periods are more regularand less painful; there is less iron deficiency anemia in pill users. remote computer terminal operator use is associated with a decreased incidence of ovarian and uterine cancer. There is also no evidence that the pill increases the incidence of any cancer. How Oral Contraceptives Work Oral contraceptives come in two varieties. One is the combination pill which contains both estrogenand progesterone. Combination pills are considered 98-99% effective [...] effective than the combination pill in preventing preg jayy. It is VERY important to take the [...] given. Certain medical conditions may make the pillinappropriate for you, therefore it is very important to be honest and as complete as possible withthe information you share with your doctor. The [...] and mild fluid retention. There is no senior care weight gain with the use of the [...] see if there is any physical cause andpossibly change to another control pill. Problems: Missed [...] pill for the rest of the month. Oryou can stop the pill and start a [...] such as phenytoin, carbamazepine, phenobarbital, topiramate and somemedications for HIV. Let your doctor know if you start taking any of these medications while on thepill. Symptoms to Notify Your Doctor with Immediately: [...] health information. Bupropion: Patient drug information Access Leikr Online for additional drug information, tools, and databases. Copyright 1710-8078 [employer]. All rights reserved. Contributor Disclosures (For additional information see Bupropion: Drug information and see Bupropion: Pediatric drug information) You must carefully read the Consumer Information [...] or change the dose of any drug withoutchecking with your doctor. What are some things I need to know or do while I take this drug? For all patients taking this drug: Tell all of your health care providers that you take this drug. This includes your doctors, nurses,pharmacists, and dentists. Avoid driving and doing other tasks or actions that call for you to be alert or have clear eyesightuntil you see how this drug affects you. This drug may affect certain lab tests. Tell all of your health care providers and lab workers thatyou take this drug. Do not stop taking [...] be higher in people who take higher doses,have certain health problems, or take certain other [...] , plan on getting , or are breast- feeding. You will need to talk about the [...] right away if you have any of thefollowing signs or symptoms that may be related to a very bad side effect: Signs of an allergic reaction, like rash; hives; itching; red, swollen, blistered, or peeling skin with or without fever; wheezing; tightness in the chest or throat; trouble breathing, swallowing, ortalking; unusual hoarseness; or swelling of the mouth, [...] these eye problems. Call your doctor right awayif you have eye pain, change in eyesight, [...] no side effects or only have minor sideeffects. Call your doctor or get medical help [...] all information given to you. Follow all instructionsclosely. For all uses of this drug: Do [...] many signs of nicotine withdrawal. Rarely depression andsuicidal thoughts have happened in people trying to [...] If you have any questions about this drug,please talk with your doctor, nurse, pharmacist, or other health care provider. If you think there has been an overdose, call your poison control center or get medical care right away. Be ready to tell or show what was taken, how much, and when it happened. Last Reviewed [id number] Consumer Information Use and Disclaimer This generalized [...] that may apply to a specific patient. Itis not intended to be medical advice or [...] or approved for treating a specific patient. [employer]. and its affiliatesdisclaim any warranty or liability relating to this information or the use thereof. The use of thisinformation is governed by the Terms of Use, available at https://www.RemitDATAtersLightyear Network Solutionsuwer.com/en/know/bnhhbcsz-kxmxohctnsvdf-pruzc. 2021 [employer]. and its affiliates and/or licensors. All rights reserved. documented in this [facility] History of Present illness Narrative* Nancy Vasquez APRN.CNP - 07/14/2023 7:30 AM EDT Some documentation from previous visit of 06/16/2023 [...] ago. Irregular menses - Menses 03/17/2023 LMP 04/26-3 spotting No contraception. 20 lb weight gain with Lexapro for anxiety. Changed to bupropion by PCP plans to discuss increasingdose with PCP Assessment/plan from last visit: Metformin 1 gm twice a day with meals - Adjusted to 500 mg at breakfast and 1 gm at dinner but has had frequent diarrhea since increasing to 1 gm twice a day 3 weeks ago. 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 Dad helped her andshe started adding protein shakes. Interval History - Awake - 0700 B - 0745 Premier Protein shake S - none L - 1/2 cup cottage cheese with fruit S - none D - 1830 protein, pasta/potato/rice/sweet potato and veg - asparagus, cucumber salad, winter and summer squash/salad S - none Fluids - water, unsweetened tea Bedtime - She feels the medication is helping to lessen hunger and craving to candy controlled Exercise: stable sedentary job at [employer]. 1 mile daily walk with dog Stress: [...] two times a day with meals. 360 tablet0 buPROPion XL (WELLBUTRIN XL) 150 mg 24 hr tablet Take 150 mg by mouth every morning. PNV/iron/folic acid ( RSKGKAB-DSGT-LM ORAL) Take 1 tablet by mouth once daily. albuterol HFA (PROVENTIL HFA, VENTOLIN HFA) 90 mcg/actuation inhaler Inhale 2 Puffs as instructed every 4 hours as needed. 1 Inhaler 0 No current facility-administered medications for this visit. Occupation: [employer] Contraception: none BP 126/82 Pulse 80 Wt [...] if opioid medicines are taken while taking naltrexone.Aware to not use any opioid medications while [...] now. Follow up in 6 weeks Nancy Vasquez APRN.CNP Advanced Education from the Obesity Medicine Association Medical Decision Making: Problems: Moderate: 1+ chronic illnesses with change Risk: Moderate: Drug management and Moderate risk from testing/treatment Medical Decision Making Level: 4 - Moderate documented in this [facility] NoteHNO ID: [id number] Author: NANCY VASQUEZ APRN.CNP Service: ? Author Type: Nurse Practitioner [...] tab for anxiety and depression Was in [place] with who races - very hectic travel. [...] to candy Exercise: stable sedentary job at [employer]. Just got gym membership - walking and [...] by mouth every morning. PNV/iron/folic acid ( OHFTZPM-INKL-IU ORAL) Take 1 tablet by mouth once [...] now. Follow up in 4 weeks Nancy Vasquez APRN.SANDIP Advanced Education from the Obesity Medicine Association Medical Decision Making: Problems: Moderate: 1+ chronic illnesses with change Risk: Moderate: Drug man (more content not included)...[facility] 06-16-2023 Instructions* Patient Instructions* Nancy Vasquez APRN.SANDIP - 06/16/2023 7:10 AM EST - Whole [...] and equals 21 g protein Beef, Chicken, [place], Pork, Ricardo 1 oz 7g Fish, Tuna Fish 1 oz 7g (Starkist tuna packet 2.6 oz 17 gm protein) Seafood (Crabmeat, Shrimp, Lobster) 1 oz 6g Protein shakes (read labels) Premier Protein or generic WalMart Equate, Aldi Elevate, Meijer High Performance- 30g protein &1g carb - meal replacement Premier Protein plant [...] protein & 2 carb Protein AND carbs Beef/[place] Jerky 1 oz dried 10-15g protein - [...] oz - 8g protein & 12g carb Zimbabwean yogurt Full Fat [place] Yogurt 1 cup - 20.4g protein & 9.1g carb 2% [place] Yogurt 1 cup - 22.7g protein & 9.1g carb 0% (fat-free) [place]an Yogurt - 1 cup 24g protein & 9.3g carb :ratio, KETO Friendly Dairy Snack 1 single svg - 15g protein & 2g carb :ratio Protein 1 single svg - 25g protein & 8g carb Dannon Light + Fit 1 single csvg - 12g protein & 9g carb Two Good Lowfat [place] Yogurt, [place], Lower Sugar - 12g protein & 2g carb Oikos Triple Zero [place]an Nonfat Yogurt 1 single svg - 15g protein & 7g carb Aldi [place]an yogurt 10g protein & 4 g carb Cheese each oz Brie 5.9g protein & 0.1g carb Cheddar Cheese 7g protein & 0.4g carb Mozzarella Cheese 6.3g protein & 0.6g carb Terrence Cheese 6.7g protein & 0.7g carb Parmesan Cheese 10g protein & 0.9g carb Cream Cheese 1.7g protein & 1.2g carb Feta 4g protein & 1.2g carb B[place]wanan Cheese 7.6g protein & 1.5g carb Portillo s Low Fat Cottage Cheese 1/2cup 12g protein & 4g carb Legumes Lentils cup 9g protein & 20g carb Bertrand beans cup 7g protein & 20g carb Kidney, Black, [place], Cannellini beans cup 8g protein & 20g carb Soybeans 1/2 c 14g protein & 8.5g carb Peanut butter, natural 2 Tbsp 7-8g protein & 4g net carbs, 190 calories Sorento milk, unsweetened 8 oz 1g protein & 2g carb Soy milk 8 oz 3.5g protein & 1.6g carb Tofu 1/2 cup 10g protein & 2.3g carb Nuts and Seeds per oz Pumpkin Seeds - 6.9g protein & 5g carb Almonds - 5.9g protein & 6.1g carb [place]o Seeds - 5.8g protein & 5.6g carb Pistachios - 5.8g protein & 7.8g carb Cashews - 5.1g protein & 9.2g carb Walnuts - 4.3g protein & 3.8g carb Hazelnuts - 4.2g protein & 4.7g carb [place] Nuts - 4.0g protein & 3.4g carb [...] Cabbage Spinach Peppers Green beans Carrots Tomato [place] Cunningham sprouts Cauliflower Lettuce Snap peas Broccoli [...] High Protein Snack Ideas 1. Jerky 2. [place] mix without or minimal dried fruit 3. [place] roll-ups 4. [place]an yogurt 5. Veggies and yogurt dip 6. Tuna 7. Hard-boiled eggs 8. Peanut butter celery sticks 9. No-bake energy bites 10. Cheese slices/ Cheese Stick 11. Handful of almonds 12. Roasted chickpeas 13. Hummus and veggies 14. Cottage Cheese 15. Celery/fruit with peanut butter 16. Beef sticks (Grass-fed, natural ingredients) 17. Protein bars 18. Canned [place] 19. Matthew pudding 20. Homemade granola - rolled oats, nuts, and a little sweetener - 1/4 cup serving 21. Pumpkin seeds 22. Nut butter 23. Protein shakes 24. Edamame 25. Avocado and chicken salad 26. Fruit and nut bars - natural ingredients without added sugar. 27. Lentil salad 28. Overnight oatmeal 29. Egg muffins 30. Leftover protein or lunch meat documented in this encounterMer[facility] History of Present illness Narrative* Nancy Vasquez APRN.CNP - 06/16/2023 6:52 AM EST Some documentation from previous visit of 05/18/2022 [...] tab for anxiety and depression Was in [place] with who races - very hectic travel. Tried to eat healthier. Quit second job so life is becoming more calm History of anorexia and bulimia in HS - no treatment, Dad helped her and she started adding proteinshakes. Interval History - changes made in past month Awake - 0700 but is changing to 0520 to exercise before work B - 0745 Premier Protein shake S - none L - SKIP S - none D - 1829 protein, pasta/potato/rice/sweet potato and veg - asparagus, cucumber salad, winter and summer squash S - none or Skinny popcorn Fluids - water, zero sugar electrolyte drink mixes, unsweetened tea Bedtime - She feels the medication is helping to lessen hunger and craving to candy Exercise: stable sedentary job at [employer]. Just got gym membership - walking and [...] by mouth every morning. PNV/iron/folic acid ( KRVAJQD-EAUD-PU ORAL) Take 1 tablet by mouth once [...] now. Follow up in 4 weeks Nancy Vasquez APRN.SHANK RANDER Advanced Education from the Obesity Medicine Association Medical Decision Making: Problems: Moderate: 1+ chronic illnesses with change Risk: Moderate: Drug management and Moderate risk from testing/treatment Medical Decision Making Level: 4 - Moderate documented in this encounterMer[facility] Evaluation + Plan note* Assessment & Plan Note - JACINTO Roth CNP - 06/15/2023 9:35 AM ESTAssociated Problem(s): PCOS (polycystic ovarian syndrome) Recommend following up with COOKING CASING AND DRYING SUPERVISOR regarding side effects of metformin and requesting if she can take extended release metformin to see if that is better tolerated. [facility] [id number] Miscellaneous Notes* Assessment & Plan Note - JACINTO Roth CNP - 06/15/2023 9:35 AM ESTAssociated Problem(s): PCOS (polycystic ovarian syndrome) Recommend following up with COOKING [employer]ING AND DRYING SUPERVISOR regarding side effects of metformin and requesting if she can take extended release metformin to see if that is better tolerated. * Assessment & Plan Note - JACINTO Roth CNP - 06/15/2023 9:34 AM ESTAssociated Problem(s): Anxiety and depression Denies any suicidal or homicidal ideation. Anxiety and depression have improved we will continue Wellbutrin 150 mg daily, patient to give us an update in about 1 month via [email or web address] if she would like to increase the dose to 300 mg. We will schedule her for follow-up in 3 months documented in this [facility]02-21-2024 Miscellaneous Notes* Assessment & Plan Note - JACINTO Roth CNP - 06/15/2023 9:35 AM ESTAssociated Problem(s): PCOS (polycystic ovarian syndrome) Recommend following up with [employer] regarding side effects of metformin and requesting if she can take extended release metformin to see if that is better tolerated. * Assessment & Plan Note - JACINTO Roth CNP - 06/15/2023 9:34 AM ESTAssociated Problem(s): Anxiety and depression Denies any suicidal or homicidal ideation. Anxiety and depression have improved we will continue Wellbutrin 150 mg daily, patient to give us an update in about 1 month via Connectivity if she would like to increase the dose to 300 mg. We will schedule her for follow-up in 3 months * Addendum Note - JACINTO Roth CNP - 06/15/2023 7:40 AM EST Addended by: JOAQUINA MOARLES on: 06/16/2023 08:32 AM Modules accepted: Level of Service documented in this encounterSWestern Reserve [id number] Evaluation + Plan note* Assessment & Plan Note - JACINTO Roth CNP - 06/15/2023 9:34 AM ESTAssociated Problem(s): Anxiety and depression Denies any suicidal or homicidal ideation. Anxiety and depression have improved we will continue Wellbutrin 150 mg daily, patient to give us an update in about 1 month via Connectivity if she would like to increase the dose to 300 mg. We will schedule her for follow-up in 3 months [facility] [id number] History of Present illness Narrative* Tracey Ordaz - 06/15/2023 7:40 AM EST Patient was identified by name and Date of . * Joaquina Morales, ILLUMINATING ENGINEER - SHANK RANDER - 06/15/2023 7:40 AM EST Images from the original note were not included. 06/15/2023 David Conti (: 1995) is a 27 y.o. female , Established patient, here for evaluation of thefollowing chief complaint(s): Medication Check ASSESSMENT/PLAN: 1. Anxiety and depression Assessment & Plan: Denies any suicidal or homicidal ideation. Anxiety and depression have improved we will continue Wellbutrin 150 mg daily, patient to give us an update in about 1 month via EduRiset if she would like to increase the dose to 300 mg. We will schedule her for follow-up in 3 months 2. PCOS (polycystic ovarian syndrome) Assessment & Plan: Recommend following up with [employer] regarding side effects of metformin and requesting if she can take extended release metformin to see if that is better tolerated. Follow up for 3 month [facility]. SUBJECTIVE/OBJECTIVE: HPI - David Conti (: 1995) is a 27 y.o. female , Established patient, here for the evaluation ofthe following chief complaint(s): Medication Check RACING WITH IN [place] WENT WELL, WAS SUPER BUSY. Did not get to do any sightseeing as theywere busy at the track every day. Got back from [place] on June 05, 2023. Patient reports she went to podopediatrician for pcos- was started on metformin and [...] with meals. 05/18/23 08/16/23 Yes Historical Provider, [id number]-Vqy-Tp-[id number] (/IRON PO) Take 1 tablet by mouth [...] CNP 06/15/2023 9:35 AM documented in this [facility]02-21-2024 History of Present illness Narrative* Tracey Ordaz - 06/15/2023 7:40 AM EST Patient was identified by name and Date of . * Joaquina Morales, ILLUMINATING ENGINEER - SHANK RANDER - 06/15/2023 7:40 AM EST Images from the original note were not included. 06/15/2023 David Conti (: 1995) is a 27 y.o. female , Established patient, here for evaluation of thefollowing chief complaint(s): Medication Check ASSESSMENT/PLAN: 1. Anxiety and depression Assessment & Plan: Denies any suicidal or homicidal ideation. Anxiety and depression have improved we will continue Wellbutrin 150 mg daily, patient to give us an update in about 1 month via Edu[employer]iset if she would like to increase the dose to 300 mg. We will schedule her for follow-up in 3 months 2. PCOS (polycystic ovarian syndrome) Assessment & Plan: Recommend following up with [employer] regarding side effects of metformin and requesting if she can take extended release metformin to see if that is better tolerated. Follow up for 3 month [facility]. SUBJECTIVE/OBJECTIVE: HPI - David Conti (: 1995) is a 27 y.o. female , Established patient, here for the evaluation ofthe following chief complaint(s): Medication Check RACING WITH IN [place] WENT WELL, WAS SUPER BUSY. Did not get to do any sightseeing as theywere busy at the track every day. Got back from [place] on June 05, 2023. Patient reports she went to podopediatrician for pcos- was started on metformin and [...] with meals. 05/18/23 08/16/23 Yes Historical Provider, Fczfvhas-Fdv-Yu-FA (/IRON PO) Take 1 tablet by mouth [...] CNP 06/15/2023 9:35 AM documented in this [facility]02-21-2024 Instructions* Patient Instructions* JACINTO Roth CNP - 06/15/2023 7:40 AM EST Asked about extended release metformin. Give update in about a month- if you want to increase dose of Wellbutrin or not documented in this [facility]02-21-2024 Instructions* Patient Instructions* JACINTO Roth CNP - 06/15/2023 7:40 AM EST Asked about extended release metformin. Give update in about a month- if you want to increase dose of Wellbutrin or not documented in this [facility]02-21-2024 Note* Addendum Note - JACINTO Roth CNP - 06/15/2023 7:40 AM ESTAddended by: JOAQUINA MORALES on: 06/16/2023 08:32 AM Modules accepted: Level of Service [facility] [id number] NoteAddended by: JOAQUINA MORALES on: 06/16/2023 08:32 AM Modules accepted: Level of ServiceSMcLaren Oakland01-24-2024 NoteHNO ID: [id number] Author: NANCY VASQUEZ APRN.CNP Service: ? Author Type: Nurse Practitioner [...] Ectopic0 Multiple0 Live Births0 Comment: 3 stepchildren [employer] History LMP: 04/26/2023, Having periods Age at Menarche: Age at First : Age at Menopause: [employer] History Comments: Sexual Activity: Yes; Male; sexually [...] by mouth every morning. PNV/iron/folic acid ( [id number] ORAL) Take 1 tablet by mouth once [...] weight loss discussed Fol (more content not included)...[facility]01-22-2024 Evaluation + Plan note* Assessment & Plan Note - Joaquina Morales APRN - SANDIP - 05/16/2023 4:23 PM ESTAssociated Problem(s): Weight gain Will have her follow up with her podopediatrician, suspect gain posssilby from pcos. Continue exercise, healthy eating and portion control. Will stop lexapro (possible weight gain) and switch to wellbutrin. [facility] [id number] Miscellaneous Notes* Assessment & Plan Note - JACINTO Roth CNP - 05/16/2023 4:23 PM ESTAssociated Problem(s): Weight gain Will have her follow up with her podopediatrician, suspect gain posssilby from pcos. Continue exercise, healthy eating and portion control. Will stop lexapro (possible weight gain) and switch to wellbutrin. * Assessment & Plan Note - JACINTO Roth CNP - 05/16/2023 4:16 PM ESTAssociated Problem(s): Anxiety and depression Denies si/hi. Anxiety and depression symptoms better but still is having trouble focusing. Will taper discontinue lexapro and start wellbutrin. Follow up in about 1 month documented in this encounterSWestern Reserve [id number] Miscellaneous Notes* Assessment & Plan Note - JACINTO Roth CNP - 05/16/2023 4:23 PM ESTAssociated Problem(s): Weight gain Will have her follow up with her podopediatrician, suspect gain posssilby from pcos. Continue exercise, healthy eating and portion control. Will stop lexapro (possible weight gain) and switch to wellbutrin. * Assessment & Plan Note - JACINTO Roth CNP - 05/16/2023 4:16 PM ESTAssociated Problem(s): Anxiety and depression Denies si/hi. Anxiety and depression symptoms better but still is having trouble focusing. Will taper discontinue lexapro and start wellbutrin. Follow up in about 1 month * Addendum Note - JACINTO Roth CNP - 05/16/2023 1:40 PM EST Addended by: JOAQUINA MORALES on: 05/17/2023 10:57 AM Modules accepted: Level of Service documented in this [facility]01-22-2024 Evaluation + Plan note* Assessment & Plan Note - JACINTO Roth CNP - 05/16/2023 4:16 PM ESTAssociated Problem(s): Anxiety and depression Denies si/hi. Anxiety and depression symptoms better but still is having trouble focusing. Will taper discontinue lexapro and start wellbutrin. Follow up in about 1 month [facility] [id number] History of Present illness Narrative* Tracey Ordaz - 05/16/2023 1:40 PM EST Patient was identified by name and Date of . * JACINTO Roth CNP - 05/16/2023 1:40 PM EST Images from the original note were not included. 05/16/2023 David Conti (: 1995) is a 27 y.o. female , Established patient, here for evaluation of thefollowing chief complaint(s): Medication Check and Weight Gain [...] Will have her follow up with her podopediatrician, suspect gain posssilby from pcos. Continue exercise, healthy eating and portion control. Will stop lexapro (possible weight gain) and switch to wellbutrin. Follow up in about 1 month (around 06/16/2023). SUBJECTIVE/OBJECTIVE: [facility] - David Conti (: 1995) is a 27 y.o. female , Established patient, here for the evaluation ofthe following chief complaint(s): Medication Check and Weight Gain Stopped nicotine and stopped etoh since we last met. . Has gained some weight. She thinks it may befrom going off of her control medication, Is working out with online [employer] classes daily, watching what she is eating. Is doing well as far as eating and exercising. She also is doing yoga. Stopped control. Has not had period since dec and February and has been testing. Is trying to get . Will be following up with her podopediatrician. Reports anxiety is better, but is not able to focus well still. Denies si/hi. Her and her are getting ready to go to [place] for car racing for 11 days. Her races cars. States she is looking forward to going. Prior to Admission medications Medication Sig Start Date End Date Taking? Authorizing Provider escitalopram (Lexapro) 20 MG tablet Take 1 tablet (20 mg) by mouth daily. 04/08/23 07/07/23 Yes Joaquina Morales APRN - SHANK RANDER MV-Min-Fe Fum-FA-DHA ( 1 PO) Take by mouth. Yes Historical Provider, Review of Systems Constitutional: Negative. HENT: Negative. Respiratory: Negative. Cardiovascular: Negative. Gastrointestinal: Negative. Genitourinary: Negative. Musculoskeletal: Negative. Neurological: Negative. Psychiatric/Behavioral: Positive for decreased concentration. Negative for self- injury, sleep disturbance and suicidal ideas. The patient [...] CNP 05/16/2023 4:24 PM documented in this [facility]01-22-2024 History of Present illness Narrative* Tracey Ordaz - 05/16/2023 1:40 PM EST Patient was identified by name and Date of . * JACINTO Roth CNP - 05/16/2023 1:40 PM EST Images from the original note were not included. 05/16/2023 David Conti (: 1995) is a 27 y.o. female , Established patient, here for evaluation of thefollowing chief complaint(s): Medication Check and Weight Gain [...] Will have her follow up with her podopediatrician, suspect gain posssilby from pcos. Continue exercise, healthy eating and portion control. Will stop lexapro (possible weight gain) and switch to wellbutrin. Follow up in about 1 month (around 06/16/2023). SUBJECTIVE/OBJECTIVE: HPI - David Conti (: 1995) is a 27 y.o. female , Established patient, here for the evaluation ofthe following chief complaint(s): Medication Check and Weight Gain Stopped nicotine and stopped etoh since we last met. . Has gained some weight. She thinks it may befrom going off of her control medication, Is working out with online Mobile [employer] classes daily, watching what she is eating. Is doing well as far as eating and exercising. She also is doing yoga. Stopped control. Has not had period since dec and February and has been testing. Is trying to get . Will be following up with her podopediatrician. Reports anxiety is better, but is not able to focus well still. Denies si/hi. Her and her are getting ready to go to [place] for car racing for 11 days. Her races cars. States she is looking forward to going. Prior to Admission medications Medication Sig Start Date End Date Taking? Authorizing Provider escitalopram (Lexapro) 20 MG tablet Take 1 tablet (20 mg) by mouth daily. 04/08/23 07/07/23 Yes Joaquina Morales, ILLUMINATING ENGINEER - SANDIP MV-Min-Fe Fum-FA-DHA ( 1 PO) Take by mouth. Yes Historical Provider, Review of Systems Constitutional: Negative. HENT: Negative. Respiratory: Negative. Cardiovascular: Negative. Gastrointestinal: Negative. Genitourinary: Negative. Musculoskeletal: Negative. Neurological: Negative. Psychiatric/Behavioral: Positive for decreased concentration. Negative for self- injury, sleep disturbance and suicidal ideas. The patient [...] CNP 05/16/2023 4:24 PM documented in this [facility]01-22-2024 Instructions* Patient Instructions* JACINTO Roth CNP - 05/16/2023 1:40 PM EST Start wellbutrin and decrease lexapro to 10 mg daily x 7 days, then stop the lexapro. Check Headspace vangie for meditation documented in this [facility]01-22-2024 Instructions* Patient Instructions* JACINTO Roth CNP - 05/16/2023 1:40 PM EST Start wellbutrin and decrease lexapro to 10 mg daily x 7 days, then stop the lexapro. Check Headspace vangie for meditation documented in this [facility]01-22-2024 Note* Addendum Note - JACINTO Roth CNP - 05/16/2023 1:40 PM ESTAddended by: JOAQUINA MORALES on: 05/17/2023 10:57 AM Modules accepted: Level of Service [facility] [id number] NoteAddended by: JOAQUINA MORALES on: 05/17/2023 10:57 AM Modules accepted: Level of ServiceSMcLaren Oakland11-29-2023 Evaluation + Plan note* Assessment & Plan Note - JACINTO Roth CNP - 03/23/2023 1:21 PM ESTAssociated Problem(s): Anxiety and depression Denies any suicidal or homicidal ideation. Reports improved symptoms. We will continue on Lexapro 10 mg daily she is to provide an update through Connectivity in approximately 4 weeks. Consider up titration if needed at that point. [facility] [id number] Miscellaneous Notes* Assessment & Plan Note - JACINTO Roth CNP - 03/23/2023 1:21 PM ESTAssociated Problem(s): Anxiety and depression Denies any suicidal or homicidal ideation. Reports improved symptoms. We will continue on Lexapro 10 mg daily she is to provide an update through Connectivity in approximately 4 weeks. Consider up titration if needed at that point. documented in this [facility]11-29-2023 History of Present illness Narrative* Tracey Ordaz - 03/23/2023 9:40 AM EST Patient was identified by name and Date of . Health Main: Lipid-pended HIV/Hep C-declined Covid-declined PHQ-completed Pap-[facility] (will scan in) Tdap-declined Influenza-declined * Joaquina Morales, ILLUMINATING ENGINEER - SHANK RANDER - 03/23/2023 9:40 AM EST Images from the original note were not included. 03/23/2023 David Conti (: 1995) is a 27 y.o. female , Established patient, here for evaluation of thefollowing chief complaint(s): Follow-up and Health Maintenance (Lipid-pended/HIV/Hep C-declined/Covid-declined/PHQ-completed/Pap-[facility] (will scan in)/Tdap-declined/Influenza-declined/ ) ASSESSMENT/PLAN: 1. Annual physical exam - Comprehensive metabolic panel - CBC - Lipid panel 2. Screening for deficiency anemia - CBC 3. Screening for cholesterol level - Lipid panel 4. Anxiety and depression Assessment & Plan: Denies any suicidal or homicidal ideation. Reports improved symptoms. We will continue on Lexapro 10 mg daily she is to provide an update through Connectivity in approximately 4 weeks. Consider up titration if needed at that point. Follow up in about 3 months (around 06/23/2023). SUBJECTIVE/OBJECTIVE: HPI - David Conti (: 1995) is a 27 y.o. female , Established patient, here for the evaluation ofthe following chief complaint(s): Follow-up and Health Maintenance (Lipid-pended/HIV/Hep C-declined/Covid-declined/PHQ-completed/Pap-[facility] (will scan in)/Tdap-declined/Influenza-declined/ ) Recently newly established patient to us about 2 weeks ago who had presented for an acute complaintof anxiety and depression. She was started on Lexapro 10 mg at that time and recommended to get setup with a counselor. No other acute complaints today. Anxiety/dep- feels like medication is helping some. Is able to think clearer. Is processing thoughts better. States that she has not broke down and cried like she was before. Denies any suicidal or homicidal ideation. She has yet to set up with a counselor. Has [employer] which she follows for women's health. Prior [...] CNP 03/23/2023 1:22 PM documented in this [facility]11-29-2023 Instructions* Patient Instructions* JACINTO Roth CNP - 03/23/2023 9:40 AM EST Melatonin 1- 5 mg nightly to help with sleep. Send update via [email or web address] Ltdt to provider in 1 month on how you are doing on the lexapro 10 mg daily. documented in this [facility]08-07-2023 NoteHNO ID: [id number] Author: Divya Jack MD Service: ? Author Type: Physician Type: Progress Notes Filed: 11/29/2022 3:09 PM Note Text: Homeopathic Doctor offered: Patient declines. David is a 27 [...] Ectopic0 Multiple0 Live Births0 Comment: 3 stepchildren [employer] History LMP: 11/30/2021, Having periods Age at Menarche: Age at First : Age at Menopause: [employer] History Comments: Sexual Activity: Yes; Male; sexually [...] external genitalia normal, normal Bartholin's glands, urethra, Arthur's glands, no vulvar lesions, no cervical lesions, [...] year or sooner as needed Divya Melendez [facility]08-07-2023 History of Present illness Narrative* Divya Jack MD - 11/29/2022 2:10 PM EDT Homeopathic Doctor offered: Patient declines. 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06[facility]14-2023 Miscellaneous Notes* Telephone Encounter - Dennise Yan RN - 10/06/2022 10:28 AM EDT Patient called in requesting refill today. Annual scheduled with DM 11/29/22. No need to call back. Requested Prescriptions Pending Prescriptions Disp Refills Norethindrone Acet-Ethinyl Est (05/14, ,) 1-20 mg-mcg per tablet 28 tablet 2 Sig: TAKE 1 TABLET BY MOUTH DAILY Dennise Yan RN documented in this encounterMer[facility]03-09-2023 Miscellaneous Notes* Addendum Note - Rama Holley APRN.CNM - 07/01/2022 3:14 PM ESTAddended by: RAMA HOLLEY on: 07/01/2022 03:14 PM Modules accepted: Orders * Addendum Note - Dai Bueno LPN - 07/01/2022 2:59 PM ESTAddended by: DAI BUENO LPN on: 07/01/2022 02:59 PM Modules accepted: Orders * Telephone Encounter - Dai Bueno LPN - 07/01/2022 2:58 PM EST Please see pended order below in DM absence. Pt is needing this today and it went to the wrong pharmacy. Call only if problems. Dai Bueno LPN * Telephone Encounter - Divya Graham MD - 06/30/2022 2:54 PM EST ordered * Telephone Encounter - Rosmery Barlow RN - 06/30/2022 1:52 PM EST Patient needing Rx before KJ returns on Tuesday. Rosmery Barlow RN * Telephone Encounter - Isaura Mcneill RN - 06/30/2022 1:11 PM EST RX pending. Patient last seen for annual 10/20/21 documented [facility] [address] [facility]01-26-2023 Miscellaneous Notes* Telephone Encounter - Dorothy Tadeo LPN - 05/20/2022 2:32 PM EST Left detailed message on patient's voicemail * Telephone Encounter - Niharika Lee MD - 05/20/2022 2:20 PM EST Please let her know that I apologize. I thought the order was placed. Sorry for her inconvenience. Tomorrow morning would be fine for her to get her blood drawn. Niharika Lee MD * Telephone Encounter - Isaura Mcneill RN - 05/20/2022 2:10 PM EST Patient was to have her 21 day progesterone drawn today. Patient went to the lab at 7 AM and there was no order. Patient voiced her frustration and lack of communication. If patient chooses, can she have it drawn tomorrow? Otherwise she's aware that she will have to wait until her next cycle. Orderpending. Isaura Mcneill RN documented in this encounterMer[facility]01-06-2023 Miscellaneous Notes* Telephone Encounter - Niharika Lee MD - 04/30/2022 10:48 AM EST Please call & explain that day 21 would be May 20 and today is day 1. Thanks! Niharika Lee MD documented in this encounterMer[facility]12-29-2022 Miscellaneous Notes* Telephone Encounter - Niharika Lee MD - 04/22/2022 10:28 AM EST Menses can take 7-10 days to start after finishing provera. Niharika Lee MD * Telephone Encounter - Niharika Lee MD - 04/13/2022 10:47 AM EST Rx provera given Niharika Lee MD documented in this [facility]12-08-2022 Miscellaneous Notes* Telephone Encounter - Dennise Yan RN - 04/01/2022 11:20 AM EST Left message for patient to call office or check mychart message. Dennise Yan RN * Telephone Encounter - Dennise Yan RN - 03/30/2022 3:30 PM EST Images from the original note were not included. Left message for patient to call office. MD Dennise Dow RN, RN Please call patient & make sure she is taking a folic acid supplement as desires . Thanks! KJ documented in this encounterMer[facility]12-06-2022 History of Present illness Narrative* Niharika Lee MD - 03/30/2022 11:26 AM EST David Conti is a 26 year old female who presents for problem visit (virtually). HPI: Patient has questions about her positive test and missed menses. Also she would liketo get and has questions about that as well. 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 Serum hcg confirms patient isno . Missed menses - discussed R/B/A and will proceed with provera to induce menses if no menses by April 13. PCOS - patient reports that home OPK don't show ovulation. Will check day 21 progesterone. All questions answered & patient agrees with plan. I spent a total of 25 minutes on the date of the service which included preparing to see the patient, [id number] patient care, completing clinical documentation, and counseling and educating the patient/family/caregiver. Niharika Lee MD documented in this encounterMer[facility]11-29-2022 Miscellaneous Notes* Telephone Encounter - Rosmery Barlow RN - 03/23/2022 2:30 PM EST Patient notified and voiced understanding of below. Virtual visit appointment scheduled per request. Rosmery Barlow RN * Telephone Encounter - Niharika Lee MD - 03/23/2022 2:19 PM EST Based on the dates of her tests [...] when trying to conceive. Niharika Lee MD * Telephone Encounter - Dennise Yan RN - 03/22/2022 11:03 AM EST LMP 02/17/22 She had positive UPT 03/13 [...] has been trying to conceive x2 months. Askingwhat else she can do to help regulate menses to continue to try to conceive. Aware KJ back in office tomorrow. Please advise. Dennise Yan RN documented [facility] Miscellaneous Notes* Telephone Encounter - Elvi Sam RN - 03/19/2022 1:09 PM EST Patient notified and appt made for tomorrow at her request. Leave phone note open for quant result * Telephone Encounter - Niharika Lee MD - 03/19/2022 12:12 PM EST Hcg quant ordered Niharika Lee MD * Telephone Encounter - Dai Bueno LPN - 03/19/2022 11:23 AM EST Pt calling and stated that she got a positive test on 02/10/22. Pt has her PNOB and NOB appointment scheduled. She took another test this morning and and received a negative test. Pt stating she also go a negative results yesterday as well. Pt wanting to know if she can have a serum quantto verify. LMP 02/17/22. Please advise. Dai Bueno LPN documented in this encounter[facility] Miscellaneous Notes* Telephone Encounter - Dennise Yan RN - 10/30/2021 8:50 AM EDT See phone note. Dennise Yan RN * Telephone Encounter - Divya Graham MD - 10/29/2021 8:45 AM EDT This is KJ patient- I read ultrasound. Please forward to her. documented in this encounterMer[facility]06[facility]28-[facility]22 History of Present illness Narrative* Niharika Lee MD - 10/20/2021 7:18 AM EDT David is a 26 year old who presents for an annual gynecologic exam. Menses are typically regular. She had some breakthrough bleeding so she stopped the ocps last month. The episode of irregular bleeding was heavy. She then restarted the ocps. Patient has changed jobs(last year) & got in June. She takes her ocps regularly. Patient states home hcg testsare negative. Menses:regular other than above Contraception: combined hormonal contraceptives HPV vaccine: Yes Last Pap: 04/13/2019 normal HPV: N/A History of abnormal pap: No Last mammogram: never OB History No obstetric history on file. 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 Niharika Lee MD documented in this encounterMer[facility]08[facility] History of Past illness Narrative* Problem Noted Date Resolved Date Posterior tibial tendonitis 11/27/201210/24 Achilles tendinitis 11/27/2012 11/12/2014 documented as of this encounter (statuses as of 10/20/2021) [facility] History of Past illness Narrative* Problem Noted Date Resolved Date Posterior tibial tendonitis 11/27/201210/24 Achilles tendinitis 11/27/2012 11/12/2014 documented as of this encounter (statuses as of 10/27/2021) [facility] History of Past illness Narrative* Problem Noted Date Resolved Date Posterior tibial tendonitis 11/27/201210/24 Achilles tendinitis 11/27/2012 11/12/2014 documented as of this encounter (statuses as of 10/30/2021) [facility] of Past illness Narrative* Problem Noted Date Resolved Date Posterior tibial tendonitis 11/27/201210/24 Achilles tendinitis 11/27/2012 11/12/2014 documented as of this encounter (statuses as of 03/19/2022) [facility] of Past illness Narrative* Problem Noted Date Resolved Date Posterior tibial tendonitis 11/27/201210/24 Achilles tendinitis 11/27/2012 11/12/2014 documented as of this encounter (statuses as of 03/23/2022) [facility] of Past illness Narrative* Problem Noted Date Resolved Date Posterior tibial tendonitis 11/27/201210/24 Achilles tendinitis 11/27/2012 11/12/2014 documented as of this encounter (statuses as of 03/30/2022) [facility] of Past illness Narrative* Problem Noted Date Resolved Date Posterior tibial tendonitis 11/27/201210/24 Achilles tendinitis 11/27/2012 11/12/2014 documented as of this encounter (statuses as of 04/02/2022) [facility] of Past illness Narrative* Problem Noted Date Resolved Date Posterior tibial tendonitis 11/27/201210/24 Achilles tendinitis 11/27/2012 11/12/2014 documented as of this encounter (statuses as of 04/28/2022) [facility] of Past illness Narrative* Problem Noted Date Resolved Date Posterior tibial tendonitis 11/27/201210/24 Achilles tendinitis 11/27/2012 11/12/2014 documented as of this encounter (statuses as of 05/01/2022) [facility] of Past illness Narrative* Problem Noted Date Resolved Date Posterior tibial tendonitis 11/27/201210/24 Achilles tendinitis 11/27/2012 11/12/2014 documented as of this encounter (statuses as of 05/20/2022) [facility] of Past illness Narrative* Problem Noted Date Resolved Date Posterior tibial tendonitis 11/27/201210/24 Achilles tendinitis 11/27/2012 11/12/2014 documented as of this encounter (statuses as of 07/01/2022) [facility] of Past illness Narrative* Problem Noted Date Resolved Date Posterior tibial tendonitis 11/27/201210/24 Achilles tendinitis 11/27/2012 11/12/2014 documented as of this encounter (statuses as of 10/06/2022) [facility] of Past illness Narrative* Problem Noted Date Diagnosed Date Resolved Date Posterior tibial tendonitis 11/27/2012 11/12/2014 Achilles tendinitis 11/27/2012 11/13/19 15 documented as of this encounter (statuses as of 11/30/2022) [facility] of Past illness Narrative* Problem Noted Date Diagnosed Date Resolved Date Posterior tibial tendonitis 11/27/2012 11/12/2014 Achilles tendinitis 11/27/2012 11/13/19 15 documented as of this encounter (statuses as of 06/16/2023) [facility] of [facility] illness Narrative* Problem Noted Date Diagnosed Date Resolved Date Posterior tibial tendonitis 11/27/2012 11/12/2014 Achilles tendinitis 11/27/2012 11/13/19 15 documented as of this encounter (statuses as of 07/14/2023) [facility] Author Fadumo Barreto [facility] Note Date/Time June 29, 2024 3:00 pm [facility] Medical Records Department [address] [place] [address] Instructions for Home/Discharge Instructions 06/29/24 1459 MR#: [id number] Acct: [id number] Name: DAVID CONTI Rep #:[id number] : 1995 28 From: Fadumo grimm MD PCP: TOMAS Roth Status:R EG SDC Discharge Instructions Diet Discharge Diet: No restrictions DC O2, CPAP, BIPAP needs Home O2 Discharge instructions: No Dressing / Incision Discharge Activity: Return to Normal Activity, May Shower and May Take a Tub Bath (after 1 week) May resume sexual activity in: 1-2 weeks Weight Bearing Status: Weight bearing as tolerated Lifting Restrictions: none Dressing / Incision Call your doctor if you observe: Fever of 101 or Higher, Using more than 1 pad per hour, Shortness of breath and Uncontrolled pain Follow Up Care Please Follow Up With: Fadumo Barreto MD When: Call [phone] to schedule appointment. Test Results: Test results from this visit will be discussed in further detail at your follow- up appointment, if applicable. Discharge Plan Admission Attending Provider: Fadumo Barreto Primary Care Provider: Joaquina Morales Instructions Print Language: Nepali Discharge Orders/Prescriptions Prescriptions: No Action PNV-Jackpot 28-1-300 mg capsule 1 cap PO DAILY sertraline [Zoloft] 50 mg tablet 50 mg PO QDAY Qty: 60 3RF albuterol sulfate [Ventolin HFA] 1 INHALER inhaler 1 - 2 puff inhalation Q4H PRN PRN (Reason: sob) Referrals / Follow Up: Joaquina Morales NP-C [Primary Care Provider] - Disposition Disposition (needs filled in before D/C Order can be placed): Home, Self Care 06/29/24 1500<Electronically signed by Fadumo Barreto MD>Fadumo Barreto MD CC: LEIGHAC Joaquina Morales ~ Signed [facility] Work Phone: Evaluation note* Diagnosis Encounter for gynecological examination without abnormal finding- Primary Routine gynecological examination Encounter for screening for malignant neoplasm of cervix Screening for malignant neoplasm of the cervix Irregular intermenstrual bleeding Metrorrhagia documented in this [facility] Diagnosis Abnormal uterine bleeding (AUB)- Primary documented in this encounter [facility] note* Diagnosis Missed menses- Primary Absence of menstruation documented in this encounter [facility] note* Diagnosis PCOS (polycystic ovarian syndrome)- Primary Polycystic ovaries Missed menses Absence of menstruation [facility]* Diagnosis Anovulation- Primary Female infertility associated with anovulation [facility]* Diagnosis Encounter for gynecological examination (general) (routine) without abnormal findings- Primary PCOS (polycystic ovarian syndrome) Polycystic ovaries documented in this encounter [facility] note* Diagnosis Annual physical exam- Primary Routine general medical examination at a health care facility Screening for deficiency anemia Screening for other and unspecified deficiency anemia Screening for cholesterol level Anxiety and depression documented in this encounter [facility] note* Diagnosis Anxiety and depression- Primary Weight gain Other symptoms concerning nutrition, metabolism, and development documented in this encounter [facility] note* Diagnosis Anxiety and depression- Primary Weight gain Other symptoms concerning nutrition, metabolism, and development [facility]* Diagnosis Anxiety and depression- Primary PCOS (polycystic ovarian syndrome) Polycystic ovaries documented in this encounter [facility] note* Diagnosis Anxiety and depression- Primary PCOS (polycystic ovarian syndrome) Polycystic ovaries documented in this encounter [facility] note* Diagnosis PCOS (polycystic ovarian syndrome)- [...] 29.9 in adult [facility] 29.9 in adult documented in this encounter [facility] note* Diagnosis Anxiety and depression- Primary Skin sensation disturbance Disturbance of skin sensation documented in this encounter [facility] note* Diagnosis Contact dermatitis, unspecified contact dermatitis type, unspecified trigger- Primary documented in this encounter [facility] Work Phone: History and physical note Author Fadumo Barreto [facility] Note Date/Time June 29, 2024 2:48 pm [facility] Medical Records Department [facility] [place] [address] 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 patient denies any significant crmaping or pain no fevers. PFSH PFSH Medical History Wears contact lenses Wears glasses Depression Anxiety Injury of head and neck Loss of consciousness Non-smoker Seasonal allergies Vocal cord dysfunction History of miscarriage PCOS (polycystic ovarian syndrome) Anxiety and depression Fatigue Asthma Home Medications ?Medication ?Instructions ?Recorded ?Last Taken ?Type albuterol sulfate 90 mcg/actuation 1 - 2 puff inhalati on Q4H PRN PRN 07/15/14 Unknown History aerosol inhaler (Ventolin HFA) sob multivit-min no.71-iron fum 28 1 cap PO DAILY 06/15/24 Unknown History mg-folate no.1 1 mg-dha 300 mg capsule (PNV-Jackpot) sertraline 50 mg tablet (Zoloft) 50 mg PO QDAY #60 tab s 06/21/24 Unknown Rx Allergy/AdvReac Type Severity Reaction Status Date / Time tree and shrub pollen Allergy Mild Other Verified 06/29/24 12:16 weed pollen Allergy Mild Other Verified 06/29/24 12:16 Family History Grandmother Breast cancer, Onset Age: 45 Maternal Grandfather Myocardial infarction, Onset Age: 51 Maternal Mother Thyroid disorder hypothyroid Surgical History History of wisdom tooth extraction History of ankle surgery Social History adopted: No household members: spouse and other details: Partial custody of 3 step children housing: house number of children: 3 current occupational status: employed 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 current occupational exposures/hazards: No pets and animals: Yes (Avoid litterbox) pets and animals: cat(s), dog(s), turtle(s) and farm animals history of recent travel: No sexually active: Yes Smoking Status: Never smoker alcohol intake: current alcohol intake frequency: a few times a month details: not while substance use type: does not use well-balanced diet: daily or most days caffeine: No eating out: 1-3 times/week during the past year weight has: increased > 10 lbs what type of physical activity do you participate in: walking frequency: 3-4 times per week duration: 15-30 minutes/day tanika/anabaptism: Church seatbelt use: always do you feel safe at home: Yes 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 Date Name GA/Weeks Outcome Route Bth Weight Infant Gen Labor Lgth Anesthesia Del Locatn Provider FOB Unknown February 2023 5 spontaneous 06/29/24 6 spontaneous Delivery Date: 06/29/24 Last Updated by: Windy Fiore RN D&C w/SM ROS Constitutional Constitutional: Reports systems reviewed and no addt'l complaints, except as documented; Denies as per HPI, change in weight, fatigue, fever(s), malaise, weakness or other Eyes Eyes: Reports systems reviewed and no addt'l complaints, except as documented; Denies as per HPI, change in vision or other ENT HEENT: Reports systems reviewed and no addt'l complaints, except as documented Respiratory/Chest Respiratory/Chest: Reports systems reviewed and no addt'l complaints, except as documented Gastrointestinal Gastrointestinal: Reports systems reviewed and no addt'l complaints, except as documented and as per HPI Genitourinary Genitourinary: Reports as per HPI Musculoskeletal Musculoskeletal: Reports systems reviewed and no addt'l complaints, except as documented Neurologic Neurologic: Reports systems reviewed and no addt'l complaints, except as documented Psychiatric Psychiatric: Reports systems reviewed and no addt'l complaints, except as documented Endocrine Endocrinology: Reports systems reviewed and no addt'l complaints, except as documented Hematologic/Lymphatic Hematologic/Lymphatic: Reports systems reviewed and no addt'l complaints, exceptas documented Vital Signs Vital Signs Vital Signs: 06/29/24 12:02 06/29/24 12:02 Temperature 99.2 F H Temperature Source Temporal Pulse Rate 73 Respiratory Rate 16 Respiratory Pattern Normal Blood Pressure 121/58 H Blood Pressure Mean 79 Blood Pressure Source Monitor Blood Pressure Position Semi-Fowlers Blood Pressure Location Right Arm Pulse Ox 97 Oxygen Delivery Method Room Air Weight Weight: 163 lb 2.273 oz Body Mass Index (BMI) 28.0 Physical Exam Const alert, oriented x3 and no apparent distress HEENT normocephalic Head and Scalp: atraumatic Eyes EOMs intact bilaterally and conjunctivae normal Neck full ROM, no lymphadenopathy, supple and thyroid normal General: trachea midline Lymph Lymphatic: no lymphadenopathy noted Resp normal respiratory effort, no retractions and no use of accessory muscles Cardio regular rhythm GI soft to palpation, non-distended and no masses Inspection: Negative for abdominal distention Extremity normal to inspection Skin no rashes or lesions noted Neuro moves all extremities Psych mental status grossly normal Labs Labs Labs: Blood Type O POSITIVE Antibody Screen NEGATIVE Hct 37.2 % (37-47) Hgb 12.7 g/dL (12.0-15.0) Obstetrics Ultrasound Chlamydia DNA (SULEMA) Negative (Negative) N.gonorrhoeae DNA (SULEMA) Negative (Negative) Assessment & Plan (1) Missed : COMMENT: plan suction d and c PLAN: Plan After discussing the patient's diagnosis and treatment plan options, patient wishes to proceed with surgical management. I have discussed with the patient the risks, benefits, and alternatives of the procedure which include but are notlimited to risks of anesthesia, bleeding, infection, possible damage to bowel, bladder, or surrounding vasculature which could lead to additional surgery to evaluate any complications. Patient agrees to procedure and wishes to proceed. ACOG/uptodate references given for additional information regarding procedure. 06/29/24 2662 <Electronically signed by Fadumo Barreto MD> Cosigner Signature (if applicable): CC: TOMAS Morales; Dr. Fadumo Barreto MD~ Signed [facility] Work Phone: Hospital Discharge instructions Additional Instructions Your hemoglobin 13.3. EKG normal. hCG negative. Ultrasound normal. Discussed with Dr. Pineda. Stop your progesterone at this time. Take Megace as prescribed for the next 10 days. Call the office for follow-up.[facility] Work Phone: Reason for referral (narrative)* Diagnostic Procedure Only (Routine) - Authorized Specialty Diagnoses / Procedures Referred By Contac t Referred To Contact [facility] Diagnoses Irregular intermenstrual bleeding Procedures PELVIC US WHI US PELVIC NONOBSTETRIC REAL-TIME IMAGE COMPLETE Niharika Lee MD [address] [place] [address] [facility] [address] [place] [address] Referral ID Status Reason Start Date Expiration Date Visits Requested Visits Authorized [id number] Authorized Auto-Generat ed Referral 10/20/2021 10/20/2022 1 1 [facility] for referral (narrative)No reason for referral information availableWWooster [facility] Work Phone: Summary Purpose Family History Relationship Condition Age at Onset Recorded Date/T marcus grandmother Malignant neoplasm of breast 45 grandfather Myocardial infarction 51 mother Disorder of thyroid Unknown Advance Directives Advance Directive Response Recorded Date/ Time Advance Directives No May 21, 2024 11:52am Living Will No June 28, 2024 3:22pm Power of Convex Grinder No June 28 3:22pm Advance Directive Response Recorded Date/ Time Advance Directives No May 21, 2024 12:52pm Living Will No June 28, 2024 4:22pm Power of Convex Grinder No June 28 4:22pm Advance Directive Response Recorded Date/ Time Advance Directives No May 21, 2024 12:52pm Living Will No June 28, 2024 4:22pm Do you have a Healthcare Power of Convex Grinder? No June 28, 2024 4:22pm Advance Directive Response Recorded Date/ Time Advance Directives No May 21, 2024 12:52pm Living Will No June 28, 2024 4:22pm Do you have a Healthcare Power of Convex Grinder? No June 28, 2024 4:22pm Do you have a Healthcare Power of Convex Grinder? No October 02, 2024 12:04pm Chief Complaint and Reason for Visit Chief Complaint Admit Date OVARIAN ASSESSMENT March 07, 2024 7:12am E ORDER LABS March 25, 2024 1 0:12am E-ORDER May 08, 2024 8 :45am INT LABS May 17, 2024 9 :47am at early stage May 19 025 6:40am 9WK NOB LMP 04/18/24 June 21, 2024 10:47am EORDERS June 23, 2024 7:02 am INT LABS June 25, 2024 9:20 am discuss miscarriage. June 25, 2024 12: 36pm DATING June 28, 2024 9:42 am Reason for Visit Admit Date Anxiety and depression June 21 10:47am Asthma June 21, 2024 10:47am Infertility June 21, 2024 10:47am PCOS (polycystic ovarian syndrome) [facility] 2024 10:47am Early stage of June 21, 2024 10:47am Family history of breast cancer June 21, 2024 10:47am [facility] 10:47[facility] Hx of one miscarriage June 21 10:47am June 21, 2024 10:47am Supervision of high-risk [facility] 2024 10:47am Anxiety and depression June 25, 2024 1 2:36pm Asthma June 25, 2024 12:3 6pm Infertility June 25, 2024 12:3 6pm PCOS (polycystic ovarian syndrome) June 25, 2024 12:36pm Early stage of June 25, 2024 12:36pm Family history of breast cancer June 12:36pm Family history of Alcaraz syndrome June 25, 2024 12:36pm Hx of one miscarriage June 25, 2024 12 :36pm June 25, 2024 12:3 6pm Supervision of high-risk June 25, 2024 12:36pm Threatened affecting intrauteri ne June 25, 2024 12:36pm Missed June 29, 2024 11:3 9am Chief Complaint Admit Date E ORDER LABS March 25, 2024 1 0:12am E-ORDER May 08, 2024 8 :45am INT LABS May 17, 2024 9 :47am at early stage May 19, 025 6:40am 9WK NOB LMP 04/18/24 June 21, 2024 10:47am EORDERS June 23, 2024 7:02 am INT LABS June 25, 2024 9:20 am discuss miscarriage. June 25, 2024 12: 36pm DATING June 28, 2024 9:42 am Chief Complaint Admit Date INT LABS May 17, 2024 9 :47am at early stage May 19, 025 6:40am 9WK NOB LMP 04/18/24 June 21, 2024 10:47am EORDERS June 23, 2024 7:02 am INT LABS June 25, 2024 9:20 am discuss miscarriage. June 25, 2024 12: 36pm DATING June 28, 2024 9:42 am D&C FU July 13, 2024 10: 33am Med Check September 11, 2024 9:47a m Reason for Visit Admit Date Anxiety and depression June 21 10:47am Asthma June 21, 2024 10:47am Infertility June 21, 2024 10:47am PCOS (polycystic ovarian syndrome) [facility] 2024 10:47am Early stage of June 21, 2024 10:47am Family history of breast cancer June 21, 2024 10:47am [facility] 10:47am Hx of one miscarriage June 21 10:47am June 21, 2024 10:47am Supervision of high-risk [facility] 2024 10:47am Anxiety and depression June 25, 2024 1 2:36pm Asthma June 25, 2024 12:3 6pm Infertility June 25, 2024 12:3 6pm PCOS (polycystic ovarian syndrome) June 25, 2024 12:36pm Early stage of June 25, 2024 12:36pm Family history of breast cancer June 12:36pm Family history of Alcaraz syndrome June 25, 2024 12:36pm Hx of one miscarriage June 25, 2024 12 :36pm June 25, 2024 12:3 6pm Supervision of high-risk June 25, 2024 12:36pm Threatened affecting intrauteri ne June 25, 2024 12:36pm Missed June 29, 2024 11:3 9am Patient requested test July 13, 2024 10:33am Chief Complaint Admit Date 9WK NOB LMP 04/18/24 June 21, 2024 10:47am EORDERS June 23, 2024 7:02 am INT LABS June 25, 2024 9:20 am discuss miscarriage. June 25, 2024 12: 36pm DATING June 28, 2024 9:42 am D&C FU July 13, 2024 10: 33am Med Check September 11, 2024 9:47a m BLEEDING October 02, 2024 10:5 6am Reason for Visit Admit Date Anxiety and depression June 21 10:47am Asthma June 21, 2024 10:47am Infertility June 21, 2024 10:47am PCOS (polycystic ovarian syndrome) [facility] 2024 10:47am Early stage of June 21, 2024 10:47am Family history of breast cancer June 21, 2024 10:47am Family history of Alcaraz syndrome Februa 2024 10:47am Hx of one miscarriage June 21 10:47am June 21, 2024 10:47am Supervision of high-risk [facility] 2024 10:47am Anxiety and depression June 25, 2024 1 2:36pm Asthma June 25, 2024 12:3 6pm Infertility June 25, 2024 12:3 6pm PCOS (polycystic ovarian syndrome) June 25, 2024 12:36pm Early stage of June 25, 2024 12:36pm Family history of breast cancer June 12:36pm Family history of Alcaraz syndrome June 25, 2024 12:36pm Hx of one miscarriage June 25, 2024 12 :36pm June 25, 2024 12:3 6pm Supervision of high-risk June 25, 2024 12:36pm Threatened affecting intrauteri ne June 25, 2024 12:36pm Missed June 29, 2024 11:3 9am Patient requested test July 13, 2024 10:33am Infertility September 11, 2024 9:47a m Missed September 11, 2024 9:47a m PCOS (polycystic ovarian syndrome) August 242024 9:47am Additional Source Comments Source Comments (unrecognize d section and content) In the event this informatio n is protected by the Federal Confidentiality of Alcohol and Drug Abuse Patient Records regulations: The Federal rules restrict any use of the information to criminally investigate or prosecute any alcohol or drug abuse patient.[facility] the event this information is protected by the Federal Confidentiality of Alcohol and Drug Abuse Patient Records regulations: The Federal rules restrict any use of the information to criminally investigate or prosecute any alcohol or drug abuse patient.[facility] the event this information is protected by the Federal Confidentiality of Alcohol and Drug Abuse Patient Records regulations: The Federal rules restrict any use of the information to criminally investigate or prosecute any alcohol or drug abuse patient.[facility] the event this information is protected by the Federal Confidentiality of Alcohol and Drug Abuse Patient Records regulations: The Federal rules restrict any use of the information to criminally investigate or prosecute any alcohol or drug abuse patient.[facility] the event this information is protected by the Federal Confidentiality of Alcohol and Drug Abuse Patient Records regulations: The Federal rules restrict any use of the information to criminally investigate or prosecute any alcohol or drug abuse patient.[facility] the event this information is protected by the Federal Confidentiality of Alcohol and Drug Abuse Patient Records regulations: The Federal rules restrict any use of the information to criminally investigate or prosecute any alcohol or drug abuse patient.[facility] the event this information is protected by the Federal Confidentiality of Alcohol and Drug Abuse Patient Records regulations: The Federal rules restrict any use of the information to criminally investigate or prosecute any alcohol or drug abuse patient.[facility] the event this information is protected by the Federal Confidentiality of Alcohol and Drug Abuse Patient Records regulations: The Federal rules restrict any use of the information to criminally investigate or prosecute any alcohol or drug abuse patient.[facility] the event this information is protected by the Federal Confidentiality of Alcohol and Drug Abuse Patient Records regulations: The Federal rules restrict any use of the information to criminally investigate or prosecute any alcohol or drug abuse patient.[facility]In the event this information is protected by the Federal Confidentiality of Alcohol and Drug Abuse Patient Records regulations: The Federal rules restrict any use of the information to criminally investigate or prosecute any alcohol or drug abuse patient.[facility]In the event this information is protected by the Federal Confidentiality of Alcohol and Drug Abuse Patient Records regulations: The Federal rules restrict any use of the information to criminally investigate or prosecute any alcohol or drug abuse patient.[facility]In the event this information is protected by the Federal Confidentiality of Alcohol and Drug Abuse Patient Records regulations: The Federal rules restrict any use of the information to criminally investigate or prosecute any alcohol or drug abuse patient.[facility]In the event this information is protected by the Federal Confidentiality of Alcohol and Drug Abuse Patient Records regulations: The Federal rules restrict any use of the information to criminally investigate or prosecute any alcohol or drug abuse patient.[facility]In the event this information is protected by the Federal Confidentiality of Alcohol and Drug Abuse Patient Records regulations: The Federal rules restrict any use of the information to criminally investigate or prosecute any alcohol or drug abuse patient.[facility]In the event this information is protected by the Federal Confidentiality of Alcohol and Drug Abuse Patient Records regulations: The Federal rules restrict any use of the information to criminally investigate or prosecute any alcohol or drug abuse patient.[facility] Reason for Visit (unrecogniz ed section and content) Reason Onset Date Comments Yearly Exam 10/20/2021 Reason Comments W[employer]ER Ultrasound Reason Comments Patient Question Reason Comments Irregular Menstrual Cycle Reason Comments Follow Up Reason Comments Orders Reason Onset Date Comments Refill Request Refill Request 10/06/2022 Reason Comments Yearly Exam Reason Comments Follow-up Health Maintenance Lipid-pendedHIV/Hep N-ectytfbjBqyjm-[id number]-completedPap-CCF (will scan in)Cubd-juyfnqvdAcltfkacs-odzdlamd Reason Comments Medication Check Weight Gain Reason Comments Medication Check Reason Comments Follow Up Labs and medication Reason Comments Weight Management Reason Comments Medication Check Foot Problem Reason Comments Rash Care Teams (unrecognized sec tion and content) Forest Science Professor Relationship Specialty Start Date End Date BreRody tate III, MD [place]DRESS PCP - General 02/15/02 Forest Science Professor Relationship Specialty Start Date End Date BreRody tate III, MD [place] PCP - General 02/15/02 Forest Science Professor Relationship Specialty Start Date End Date BreRody tate III, MD [place] PCP - General 02/15/02 Forest Science Professor Relationship Specialty Start Date End Date Rody Archibald III, MD [place] PCP - General 02/15/02 Forest Science Professor Relationship Specialty Start Date End Date Rody Archibald III, MD [place] PCP - General 02/15/02 Forest Science Professor Relationship Specialty Start Date End Date Rody Archibald III, MD [place] PCP - General 02/15/02 Forest Science Professor Relationship Specialty Start Date End Date Rody Archibald III, MD [place] PCP - General 02/15/02 Forest Science Professor Relationship Specialty Start Date End Date Rody Archibald III, MD [place] PCP - General 02/15/02 Forest Science Professor Relationship Specialty Start Date End Date Rody Archibald III, MD [place] PCP - General 02/15/02 Forest Science Professor Relationship Specialty Start Date End Date BreRody tate III, MD [place] PCP - General 02/15/02 Forest Science Professor Relationship Specialty Start Date End Date Kyle Betancourt MD [address] [facility], [place] [address] PCP - General Family Medicine 03/08/23 Forest Science Professor Relationship Specialty Start Date End Date Kyle Betancourt MD [address] [place] [address] PCP - General Family Medicine 03/08/23 Forest Science Professor Relationship Specialty Start Date End Date Kyle Betancourt MD [address] [place] [address] PCP - General Family Medicine 03/08/23 Forest Science Professor Relationship Specialty Start Date End Date Kyle Betancourt MD [address] [place] [address] PCP - General Family Medicine 03/08/23 Forest Science Professor Relationship Specialty Start Date End Date Joaquina Morales CNP [address] [place] [address] PCP - General Family Medicine 03/23/23 Forest Science Professor Relationship Specialty Start Date End Date Joaquina Morales CNP [address], [place] [id number] PCP - General Family Medicine 03/23/23 Forest Science Professor Relationship Specialty Start Date End Date Kyle Betancourt MD [address] [place] [address] PCP - General Family Medicine 03/08/23 Team Status: Active Member Role Status Dates TOMAS Roth Primary Care Provider Active Team Status: Inactive Member Role Status Dates LEIGHA RothC Primary Care Provider Active Start: March 07, 2024 End: March 07, 2024 Samanta Jaramillo NP, UI APPLICATION DEVELOPER-C Attending Provider Active Start: March 07, 2024 End: March 07, 2024 Samanta Jaramillo UI APPLICATION DEVELOPER, UI APPLICATION DEVELOPER-C Referring Provider Active Start: March 07, 2024 End: March 07, 2024 Team Status: Inactive Member Role Status Dates Joaquina Morales , UI APPLICATION DEVELOPER-C Primary Care Provider Active Start: March 25, 2024 End: March 25, 2024 Samanta Jaramillo UI APPLICATION DEVELOPER, UI APPLICATION DEVELOPER-C Attending Provider Active Start: March 25, 2024 End: March 25, 2024 Samanta Jaramillo UI APPLICATION DEVELOPER, UI APPLICATION DEVELOPER-C Referring Provider Active Start: March 25, 2024 End: March 25, 2024 Kristina Cruz NP-C Other Provider Active Star t: March 25, 2024 End: March 25, 2024 Team Status: Inactive Member Role Status Dates Joaquina Morales , UI APPLICATION DEVELOPER-C Primary Care Provider Active Start: May 08, 2024 End: May 08, 2024 Samanta Jaramillo UI APPLICATION DEVELOPER, UI APPLICATION DEVELOPER-C Attending Provider Active Start: May 08, 2024 End: May 08, 2024 Samanta Jaramillo UI APPLICATION DEVELOPER, UI APPLICATION DEVELOPER-C Referring Provider Active Start: May 08, 2024 End: May 08, 2024 Team Status: Inactive Member Role Status Dates Joaquina Morales , UI APPLICATION DEVELOPER-C Primary Care Provider Active Start: May 17, 2024 End: May 17, 2024 Dr. Isaura Song DO Attending Provider Activ e Start: May 17, 2024 End: May 17, 2024 Dr. Isaura Song DO Referring Provider Activ e Start: May 17, 2024 End: May 17, 2024 Team Status: Inactive Member Role Status Dates Dr. Isaura Song DO Attending Provider Activ e Start: May 19, 2024 End: May 19, 2024 Dr. Isaura Song DO Referring Provider Activ e Start: May 19, 2024 End: May 19, 2024 Joaquina Morales , UI APPLICATION DEVELOPER-C Primary Care Provider Active Start: May 19, 2024 End: May 19, 2024 Team Status: Inactive Member Role Status Dates Joaquina Morales , UI APPLICATION DEVELOPER-C Primary Care Provider Active Start: June 21, 2024 End: June 21, 2024 Joaquina Morales , UI APPLICATION DEVELOPER-C Referring Provider Active Start: June 21, 2024 End: June 21, 2024 Nikole Chang CNM Attending Provider Active S tart: June 21, 2024 End: June 21, 2024 Team Status: Active Member Role Status Dates Joaquinazeinab Morales , UI APPLICATION DEVELOPER-C Primary Care Provider Active Start: June 21, 2024 Nikole Chang CNM Attending Provider Active S tart: June 21, 2024 Nikole Chang CNM Referring Provider Active S tart: June 21, 2024 Team Status: Active Member Role Status Dates Joaquinamelissa Morales , UI APPLICATION DEVELOPER-C Primary Care Provider Active Start: June 23, 2024 Nikole Chang CNM Attending Provider Active S tart: June 23, 2024 Nikole Chang CNM Referring Provider Active S tart: June 23, 2024 Team Status: Active Member Role Status Dates Joaquinamelissa Morales , UI APPLICATION DEVELOPER-C Primary Care Provider Active Start: June 25, 2024 Dr. Isaura Song DO Attending Provider Activ e Start: June 25, 2024 Dr. Isaura Song DO Referring Provider Activ e Start: June 25, 2024 Team Status: Inactive Member Role Status Dates Joaquina Bridenthal , UI APPLICATION DEVELOPER-C Primary Care Provider Active Start: June 25, 2024 End: June 25, 2024 Joaquina Osminal , UI APPLICATION DEVELOPER-C Referring Provider Active Start: June 25, 2024 End: June 25, 2024 Dr. Isaura Song DO Attending Provider Activ e Start: June 25, 2024 End: June 25, 2024 Team Status: Active Member Role Status Dates Joaquina Carmen , UI APPLICATION DEVELOPER-C Primary Care Provider Active Start: June 28, 2024 Nikole Chang CNM Attending Provider Active S tart: June 28, 2024 Nikole Chang CNM Referring Provider Active S tart: June 28, 2024 Team Status: Inactive Member Role Status Dates Joaquina Osminal , UI APPLICATION DEVELOPER-C Primary Care Provider Active Start: June 29, 2024 End: June 29, 2024 Dr. Fadumo Barreto MD Attending Provider Active Start: June 29, 2024 End: June 29, 2024 Dr. Fadumo Barreto MD Referring Provider Active Start: June 29, 2024 End: June 29, 2024 Team Status: Active Member Role Status Dates Joaquina Osminal , UI APPLICATION DEVELOPER-C Primary Care Provider Active Start: June 29, 2024 Dr. Fadumo Barreto MD Attending Provider Active Start: June 29, 2024 Dr. Fadumo Barreto MD Referring Provider Active Start: June 29, 2024 Dr. Fadumo Barreto MD Other Provider Active Start: June 29, 2024 Team Status: Inactive Member Role Status Dates Joaquina Carmen , UI APPLICATION DEVELOPER-C Primary Care Provider Active Start: June 21, 2024 End: June 21, 2024 Nikole Chang CNM Attending Provider Active S tart: June 21, 2024 End: June 21, 2024 Nikole Chang CNM Referring Provider Active S tart: June 21, 2024 End: June 21, 2024 Team Status: Inactive Member Role Status Dates Joaquinamelissa Morales , UI APPLICATION DEVELOPER-C Primary Care Provider Active Start: June 23, 2024 End: June 23, 2024 Nikole Chang CNM Attending Provider Active S tart: June 23, 2024 End: June 23, 2024 Nikole Chang CNM Referring Provider Active S tart: June 23, 2024 End: June 23, 2024 Team Status: Inactive Member Role Status Dates Joaquina Osminal , UI APPLICATION DEVELOPER-C Primary Care Provider Active Start: June 25, 2024 End: June 25, 2024 Dr. Isaura Song DO Attending Provider Activ e Start: June 25, 2024 End: June 25, 2024 Dr. Isaura Song DO Referring Provider Activ e Start: June 25, 2024 End: June 25, 2024 Team Status: Inactive Member Role Status Dates Joaquina Carmen , UI APPLICATION DEVELOPER-C Primary Care Provider Active Start: June 28, 2024 End: June 28, 2024 Nikole Chang CNM Attending Provider Active S tart: June 28, 2024 End: June 28, 2024 Nikole Chang CNM Referring Provider Active S tart: June 28, 2024 End: June 28, 2024 Team Status: Inactive Member Role Status Dates Joaquina Osminal , UI APPLICATION DEVELOPER-C Primary Care Provider Active Start: July 13, 2024 End: July 13, 2024 Joaquina Carmen , UI APPLICATION DEVELOPER-C Referring Provider Active Start: July 13, 2024 End: July 13, 2024 Dr. Fadumo Barreto MD Attending Provider Active Start: July 13, 2024 End: July 13, 2024 Team Status: Inactive Member Role Status Dates Joaquina Morales NP-C Primary Care Provider Active Start: September 11, 2024 End: September 11, 2024 Joaquina Morales NP-Ekta Referring Provider Active Start: September 11, 2024 End: September 11, 2024 Dr. Isaura Song , Attending Provider Activ e Start: September 11, 2024 End: September 11, 2024 Team Status: Inactive Member Role Status Dates Joaquina Morales NP-Ekta Primary Care Provider Active Start: October 02, 2024 End: October 02, 2024 Dr. Benito Terry , Emergency Provider Active Start : October 02, 2024 End: October 02, 2024 INFORMATION SOURCE (unrecogn ized section and content) DATE CREATED AUTHOR 07/18/2023 [facility] DATE CREATED AUTHOR AUTHOR'S ORGANIZ ATION 12/06/2023 [facility] DATE CREATED AUTHOR AUTHOR'S ORGANIZ ATION 09/12/2024 [facility] FOR RECORDS PERTAINING TO PATIENTS WHO [...] BE BASED ON THE PRIMARY CLINICAL RECORDS. [employer] provides no warranty or guarantee of the accuracy or completeness of information in this document.
== END 2024-10-02 13:59 | disposition home or self-care (01) ==
PROVIDERS: Emergency Provider Emergency Medicine; PCP Nurse Practitioner Family; Visit Provider Emergency Medicine
DX: N93.8 Other specified abnormal uterine and vaginal bleeding (principal); R42 Dizziness and giddiness; F41.8 Other specified anxiety disorders; Z79.899 Other long term (current) drug therapy
CPT/HCPCS: 76830; 84703; 85025; 93005; 99283; A4216

== ENCOUNTER → 2024-11-10 | Outpatient (CLI) | payer BC, SELFPAY ==
--- OUTSIDE RECORDS SUMMARY | 2024-11-10 07:47 | XMS RPT_ITS | CCD ---
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 and neck Loss of consciousness Non-smoker Seasonal allergies Vocal cord dysfunction History of miscarriage PCOS (polycystic ovarian syndrome) Anxiety and depression Fatigue Asthma Surgical History H/O dilation and curettage History of wisdom tooth extraction History of ankle surgery Family History Grandmother Breast cancer, Onset Age: 45 Maternal Grandfather Myocardial infarction, Onset Age: 51 Maternal Mother Thyroid disorder hypothyroid Social History adopted: No household members: spouse and other details: Partial custody of 3 step children housing: house number of children: 3 current occupational status: employed 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 She reports on August 23 she started with a period (after taking progesterone challenge) and had been bleeding since; her bleeding did not stop and in fact worsened to where she was filling a tampon in an hour. Ultrasound in ER stable; Was started on Megace; bled for 2 more days and then stopped. No longer has any vaginal bleeding. Still taking Megestrol 10mg BID. Doing half tabs. Female Reproductive History Last Menstrual Period: 08/23/24 History 2 Elective abortions Hx Para 0 Spontaneous abortions 2 Hx # Term Pregnancies Ectopic pregnancies Hx # Pregnancies Multiple births # of living children 0 Past Pregnancies Del. Date Name GA/Weeks Outcome Route Bth Weight Infant Gen Labor Lgth Anesthesia Del [facility] Provider FOB Unknown February 2023 5 spontaneous [...] documented Exam Const General: cooperative, healthy appearing, comfortable, no acute distress, well groomed and well hydrated Nutritional Appearance: well nourished (more content not included)... Normal [facility] 12 Lead EKGon 10-02-2024 12 Lead EKG [facility] Cardiovascular Services [address] [place] [address] 12 Lead EKG 10/02/24 1136 MR#: [id number] Acct: [id number] Name: DAVID CONTI Rep #: [id number] : 1995 29 From: Glen Ordonez MD Attending Dr: Status: DEP ER Ordering Dr: Benito Terry DO Date: 10/02/24 Location: ED Sex: F C Admitted: Test Reason : ARRYTH Blood Pressure : */* mmHG Vent. Rate : 70 BPM Atrial Rate : 70 BPM P-R Int : 124 ms QRS Dur : 84 ms QT Int : 388 ms P-R-T Axes : 28 88 59 degrees QTcB Int : 419 ms Normal sinus rhythm Normal ECG Confirmed by Glen Ordonez ([id number]), editor managing newspaper JESSICA RIBEIRO ([id number]) on 10/04/2024 6:13:54 AM Referred By: Confirmed By: Glen Ordonez 10/04/24612 Date Glen Ordonez MD CC: CUT OFF SAWYER-C Joaquina Morales; Dr. Benito Terry DO Signed Normal [facility] Absolute lymphocyte countOrd ered By: Benito Terry on 10-02-2024 Lymphocytes Auto (Unsp spec) [#/Vol] 2.37 10*3/uL 0.83-4.51 [facility] Absolute neutrophil countOrd ered By: Benito Terry on 10-02-2024 Neutrophils (Bld) [#/Vol] 7.1 10*3/uL 2.0-7.7 [facility] Automated blood erythrocyte countOrdered By: Benito Terry on 10-02-2024 RBC (Bld) [#/Vol] 4.66 10*6/uL Normal 4.2-5.4 [facility] Comment on above: Performed By: #### L 100.0100 #### [facility] Laboratory [address] [place], [address] Automated blood hematocrit ( percentage)Ordered By: Benito Terry on 10-02-2024 Hematocrit (Bld) [Volume fraction] 39.8 % Normal 37-47 [facility] Comment on above: Performed By: #### L 100.0100 #### [facility] [address] [place], [address] Automated lymphocyte count a s percentage of total leukocytesOrdered By: Benito Mara on 10-02-2024 Lymphocytes/100 WBC Auto (Unsp spec) 23.0 % - [facility] Basophil percentageOrdered B y: Benito Terry on 10-02-2024 Basophils/100 WBC (Bld) 0.4 % Normal 0-1 [facility] Comment on above: Performed By: #### L 100.0100 #### [facility] [address] [place], [address] CBC W/Diff, Automatedon 09-23-2024 Absolute Lymph 2.37 X10 3/uL Normal 0.83-4.51 [facility] Comment on above: Performed By: #### L 100.0100 #### [facility] [address] [place], [address] Absolute Neut 7.1 X10 3/uL Normal 2.0-7.7 [facility] Comment on above: Performed By: #### L 100.0100 #### [facility] [address] [place], [address] IG% 0.400 Normal 0.0-0.9 [facility] Comment on above: Result Comment: IG% - Immature Granulocytes (promyelocytes, myelocytes and metamyelocytes) > 1% indicates that a LEFT SHIFT is Present. Performed By: #### L 100.0100 #### [facility] [address] [place], [address] Lymphocytes/100 WBC (Bld) 23.0 % Normal - [facility] Comment on above: Performed By: #### L 100.0100 #### [facility] [address] [place], [address] Nucleated RBC (Bld) [#/Vol] 0 10*3/uL Normal 0-5 [facility] Comment on above: Performed By: #### L 100.0100 #### [facility] [address] [place], [address] RDW SD 38.9 fl Normal 35.1-43.9 [facility] Comment on above: Performed By: #### L 100.0100 #### [facility] [address] [place], [address] Emergency Department Summary on 10-02-2024 Emergency Department Summary [facility] Medical Records Department [address] [place] [address] Emergency Department Summary 10/02/24 MR#: [id number] Acct: [id number] Name: DAVID CONTI Rep #: [id number] : 1995 29 From: Benito Mohr PCP: Joaquina Morales NP-C Status:DEP ER Location: ED HPI HPI - Female History of Present Illness Chief Complaint: Vag Bleeding Informant: patient and spouse/S.O. Narrative Narrative: Sent in by her 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 office for evaluation increasing vaginal bleeding. Patient had miscarriage this past June having a D C. No complications she had a normal period last month. She saw her domestic cleaner was started on progesterone and preparations for continued plans to try to get . She has PCOS with abnormal periods in the past. She states she started having bleeding August 23 this was over a month ago has been on and off. States throughout this time only had 4 days where she did not spot. Seeing her domestic cleaner Dr. Pineda a week ago her progesterone was increased to 10 mg daily. She states today while at work increasing heavy bleeding 4 soaked tampons in 4 hours and lightheaded. States pelvic cramping. No anticoagulants. I discussed with the office who referred her to the ED. [facility] Medical History (Updated 10/02/24 @ 13:[address] Benito Terry DO) Wears contact lenses Wears glasses Depression Anxiety Injury of head and neck Loss of consciousness Non-smoker Seasonal allergies Vocal cord dysfunction History of miscarriage PCOS (polycystic ovarian syndrome) Anxiety and depression Fatigue Asthma Home Medications ???Medication ???Instructions ???Recorded ???Last Taken ???Type albuterol sulfate 90 mcg/actuation 1 - 2 puff inhalation Q4H PRN so b 07/15/14 Unknown History aerosol inhaler (Ventolin HFA) letrozole 2.5 mg tablet 2.5 mg PO DAILY #5 tabs 09/11/24 U nknown Rx AISHA D-CHIRO 4 cap PO DAILY 10/02/24 10/02/24 H istory medroxyprogesterone 10 mg tablet 10 mg PO DAILY 10/02/24 10/02/24 H istory megestrol 20 mg tablet 20 mg PO BID #19 tabs 10/02/24 Unk nown Rx multivitamin (Daily Multi-Vitamin 1 tab PO DAILY 10/02/24 10/01/24 History tablet) sertraline 100 mg tablet 150 mg PO DAILY 10/02/24 10/02/24 History Allergy/AdvReac Type Severity Reaction Status Date / Time tree and shrub pollen Allergy Mild Other Verified 10/02/24 10:57 weed pollen Allergy Mild Other Verified 10/02/24 10:57 Family History Grandmother Breast cancer, Onset Age: 45 Maternal Grandfather Myocardial infarction, Onset Age: 51 Maternal Mother Thyroid disorder hypothyroid Surgical History (Updated 10/02/24 @ 11:42 by Mari Prado) H/O dilation and curettage History of wisdom tooth extraction History of ankle surgery Social History adopted: No household members: spouse and other details: Partial custody of 3 step children housing: house number of children: 3 current occupational status: employed current occupation: [employer] Prior current occupational exposures/hazards: No pets and animals: [...] 3-4 times per week duration: 15-30 minutes/day tanika/voodoo: Muslim seatbelt use: always do you feel safe at home: Yes 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 ROS ROS ED Constitutional Constitutional ED: Denies chills, fever(s) or sweats ENT ENT ED: Denies sore throat Cardiovascular Cardiovascular: Denies chest pain, leg edema, palpitations or racing heartbeat Respiratory/Chest Respiratory/Chest: Denies cough, dyspnea or dyspnea on exertion Gastrointestinal Gastrointestinal: Denies abdominal pain, diarrhea, nausea or vomiting Genitourinary Genitourinary ED: Reports other Details: Vaginal bleeding with pelvic cramping ; Denies dysuria, hematuria or urinary frequency Musculoskeletal Musculoskeletal: Denies back pain, extremity pain or neck pain Integumentary Denies rash or wounds Neurologic Neurologic: Denies headache(s), paresthesias or weakness EXAM Physical Exam Const Vital Signs: 10/02/24 10:57 10/02/24 12:57 10/02/24 13:58 Temperature 97.3 F L 97.8 F Temperature Source Temporal Pulse Rate 79 66 81 Respiratory Rate 14 (more content not included)... Normal [facility] Eosinophil percentageOrdered By: Benito Terry on 10-02-2024 Eosinophils/100 WBC (Bld) 1.7 % Normal 0-5 [facility] Comment on above: Performed By: #### L 100.0100 #### [facility] Laboratory [address] [facility] [place], [place], [id number] Erythrocyte distribution wid th ratioOrdered By: Benito Terry on 10-02-2024 Erythrocyte distribution width (RBC) [Ratio] 12.5 % Normal 11.6-14.6 [facility] Comment on above: Performed By: #### L 100.0100 #### [facility] [address] [place], [address] Erythrocyte distribution wid th standard deviationOrdered By: Benito Terry on 10-02-2024 Erythrocyte distribution width (RBC) [Ratio] 38.9 fl 35.1-43.9 [facility] Hemoglobin measurementOrdere d By: Benito Terry on 10-02-2024 Hemoglobin (Bld) [Mass/Vol] 13.4 g/dL Normal 12.0-15. 0 [facility] Comment on above: Performed By: #### L 100.0100 #### [facility] [address] [place], [address] Immature granulocytes/100 WB C Auto (Bld)Ordered By: Benito Terry on 10-02-2024 Immature granulocytes/100 WBC (Bld) 0.400 % 0.0-0.9 [facility] Comment on above: IG% - Immature Granu locytes (promyelocytes, myelocytes and metamyelocytes) > 1% indicates that a LEFT SHIFT is Present. MCV (mean corpuscular volume ) determinationOrdered By: Benito Terry on 10-02-2024 MCV (RBC) [Entitic vol] 85.4 fL Normal 81-99 [facility] Comment on above: Performed By: #### L 100.0100 #### [facility] [address] [place], [address] Mean corpuscular hemoglobin (MCH) determinationOrdered By: Benito Terry on 10-02-2024 MCH (RBC) [Entitic mass] 28.8 pg Normal 27.0-32.0 [facility] Comment on above: Performed By: #### L 100.0100 #### [facility] [address] [place], [address] Mean corpuscular hemoglobin concentration (MCHC) determinationOrdered By: Benito Terry on 10-02-2024 MCHC (RBC) [Mass/Vol] 33.7 g/dL Normal 32-36 [facility] Comment on above: Performed By: #### L 100.0100 #### [facility] [address] [place], [address] Mean platelet volume determi nationOrdered By: Benito Terry on 10-02-2024 Platelet mean volume (Bld) [Entitic vol] 11.3 fL Normal 6.2-12.0 [facility] Comment on above: Performed By: #### L 100.0100 #### [facility] [address] [place], [place], [phone] (620) Monocyte percentageOrdered B y: Benito Terry on 10-02-2024 Monocytes/100 WBC (Bld) 5.3 % Normal 0-10 [facility] Comment on above: Performed By: #### L 100.0100 #### [facility] [address] [place], [address] Neutrophil percentageOrdered By: Benito Terry on 10-02-2024 Neutrophils/100 WBC (Bld) 69.2 % Normal 47-70 [facility] Comment on above: Performed By: #### L 100.0100 #### [facility] [address] [place], [address] Nucleated red blood cell per centageOrdered By: Benito Terry on 10-02-2024 Nucleated RBC/100 WBC (Bld) [Ratio] 0 % 0-5 [facility] Platelet countOrdered By: Chandra Terry on 10-02-2024 Platelets (Bld) [#/Vol] 271 10*3/uL Normal 150-450 [facility] Comment on above: Performed By: #### L 100.0100 #### [facility] [address] [place], [place], [phone] ([phone] ,Serum,hCG Quali.on 10-02-2024 HCG, SERUM QUAL Negative Normal [facility] Comment on above: Performed By: #### L 700.3300 #### [facility] Laboratory [address] [place], [place], [phone] ([phone] Serum beta-hCG test, qualita tiveOrdered By: Benito Terry on 10-02-2024 Beta HCG ( test) Ql Negative [facility] Transvaginal Non-on 10-02-2024 Transvaginal Non- [facility] Imaging Services [address] [place], [place] [address] Transvaginal Non- MR#: [id number] Acct: [id number] Name: DAVID CONTI Rep #: [id number] : 1995 F 29 From: Lui dickens MD PCP: TOMAS Roth Status: [facility] ER Study: Transvaginal Non- Date of Exam: Exam# [id number] Ordering Dr: Benito Terry DO PROCEDURE: TRANSVAGINAL [...] US/Transvaginal Non- IMPRESSION: Unremarkable examination. Reading Location: [place] [address] CC: CUT OFF SAWYER-Ekta Morales; Dr. Benito Terry DO Cover Assembler: Signed Normal [facility] White blood cell (WBC) count Ordered By: Benito Terry on 10-02-2024 WBC (Bld) [#/Vol] 10.3 10*3/uL Normal 4.4-11.0 [facility] Comment on above: Performed By: #### L 100.0100 #### [facility] [address] [place], [address] Electronic Device Monitor Office Visit Reporton 09-11-2024 Electronic Device Monitor Office Visit Report [facility] [address], [address] [place] [address] OFFICE VISIT Date of Service: 09/11/24 MR#: [id number] Acct: [id number] Name: DAVID CONTI Rep #: [id number] : 1995 Provider: Dr. Isaura Jasso DO Age/Sex: 29/F Location: [facility] Status: Signed Intake Vital Signs 07/13/24 10:42 09/11/24 10:00 Height 5 ft 4 in 5 ft 4 in Weight: 159 lb 169 lb 4 oz BMI 27.3 29.0 BP 138/92 H 130/83 H Intake Visit Reasons: Med Check Marketing Communications Associate Required: No Is patient in pain?: No Allergies tree and shrub pollen Allergy (Mild, Verified 09/11/24 10:07) Other weed pollen Allergy (Mild, Verified 09/11/24 10:07) Other Medications ???Medication ???Instructions ???Recorded ???Confirmed ???Type albuterol sulfate 90 mcg/actuation 1 - 2 puff inhalation Q4H PRN [place] N 07/15/14 09/11/24 History aerosol inhaler (Ventolin HFA) sob multivit-min no.71-iron fum 28 1 cap PO DAILY 06/15/24 09/11/24 H istory mg-folate no.1 1 mg-dha 300 mg capsule (PNV-[place]) sertraline 100 mg tablet 150 mg (1.5 [...] current occupational status: employed current occupation: [employer] Prior current occupational exposures/hazards: No pets and animals: [...] 3-4 times per week duration: 15-30 minutes/day tanika/voodoo: Muslim seatbelt use: always do you feel safe at home: Yes 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 Normal [facility] Electronic Device Monitor Office Visit Reporton 07-13-2024 Electronic Device Monitor Office Visit Report [facility] [address] [place] [address], [address] [place] [address] OFFICE VISIT Date of Service: 07/13/24 MR#: [id number] Acct: [id number] Name: DAVID CONTI Rep #: [id number] : 1995 Provider: Dr. Fadumo gibbs MD Age/Sex: 29/F Location: [facility] Status: Signed Intake Vital Signs 06/29/24 12:02 07/13/24 10:40 07/13/24 10:42 Height 5 ft 4 in 5 ft 4 in 5 ft 4 in Weight: 159 lb BMI 27.3 BP 138/92 H Intake Visit Reasons: James CARMICHAEL Marketing Communications Associate Required: No Is patient in pain?: Yes (some discomfort in the ramin area) Allergies tree and shrub pollen Allergy (Mild, Verified 06/29/24 12:16) Other weed pollen Allergy (Mild, Verified 06/29/24 12:16) Other Medications ???Medication ???Instructions ???Recorded ???Confirmed ???Type albuterol sulfate 90 mcg/actuation 1 - 2 puff inhalation Q4H PRN [place] N 07/15/14 07/13/24 History aerosol inhaler (Ventolin HFA) sob multivit-min no.71-iron fum 28 1 cap PO DAILY 06/15/24 07/13/24 H istory mg-folate no.1 1 mg-dha 300 mg capsule (PNV-[place]) letrozole 2.5 mg tablet 2.5 mg PO [...] current occupational status: employed current occupation: [employer] Prior current occupational exposures/hazards: No pets and animals: [...] 3-4 times per week duration: 15-30 minutes/day tanika/voodoo: Muslim seatbelt use: always do you feel safe at home: Yes 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 Normal [facility] CBC-Complete Blood Cnt No Di ffon 06-29-2024 Erythrocyte distribution width (RBC) [Ratio] 12.1 % Normal 11.6-14.6 [facility] Comment on above: Performed By: #### L 700.6800 #### [facility] [address] [place], [place], [id number] Hematocrit (Bld) [Volume fraction] 37.2 % Normal 37-47 [facility] Comment on above: Performed By: #### L 700.6800 #### [facility] [address] [place], [place], [phone] (548) Hemoglobin (Bld) [Mass/Vol] 12.7 g/dL Normal 12.0-15. 0 [facility] Comment on above: Performed By: #### L 700.6800 #### [facility] [address] [place], [address] MCH (RBC) [Entitic mass] 28.9 pg Normal 27.0-32.0 [facility] Comment on above: Performed By: #### L 700.6800 #### [facility] [address] [place], [address] MCHC (RBC) [Mass/Vol] 34.1 g/dL Normal 32-36 [facility] Comment on above: Performed By: #### L 700.6800 #### [facility] [address] [place], [address] MCV (RBC) [Entitic vol] 84.5 fL Normal 81-99 [facility] Comment on above: Performed By: #### L 700.6800 #### [facility] [address] [place], [address] Platelet mean volume (Bld) [Entitic vol] 11.2 fL Normal 6.2-12.0 [facility] Comment on above: Performed By: #### L 700.6800 #### [facility] [address] [place], [address] Platelets (Bld) [#/Vol] 340 10*3/uL Normal 150-450 [facility] Comment on above: Performed By: #### L 700.6800 #### [facility] [address] [place], [address] RBC (Bld) [#/Vol] 4.40 10*6/uL Normal 4.2-5.4 [facility] Comment on above: Performed By: #### L 700.6800 #### [facility] [address] [place], [address] RDW SD 36.8 fl Normal 35.1-43.9 [facility] Comment on above: Performed By: #### L 700.6800 #### [facility] [address] [place], [place], [id number] WBC (Bld) [#/Vol] 9.0 10*3/uL Normal 4.4-11.0 [facility] Comment on above: Performed By: #### L 700.6800 #### [facility] [address] [place], [place], [address] Discharge Instructionon Discharge Instruction [facility] Medical Records Department [address] [place] [address] Instructions for Home/Discharge Instructions 06/29/24 1459 MR#: [id number] Acct: [id number] Name: DAVID CONTI Rep #: [id number] : 1995 28 From: Fadumo Barreto MD PCP: Joaquina Morales CUT OFF SAWYER-C Status:REG SDC Discharge Instructions Diet Discharge Diet: [...] Up With: Fadumo Barreto MD When: Call [phone] to schedule appointment. Test Results: Test results from this visit will be discussed in further detail at your follow-up appointment, if applicable. Discharge Plan Admission Attending Provider: Fadumo Barreto Primary Care Provider: Joaquina Morales Instructions Print Language: Ukrainian Discharge Orders/Prescription s Prescriptions: No Action PNV-[place] 28-1-300 mg capsule 1 cap PO DAILY [...] Care 06/29/24 1500 Fadumo Barreto MD CC: CUT OFF SAWYER-C Joaquina Morales Signed Normal [facility] Erythrocyte distribution wid th ratioOrdered By: Fadumo Barreto on 06-29-2024 Erythrocyte distribution width (RBC) [Ratio] 12.1 % 11.6-14.6 [facility] Erythrocyte distribution wid th standard deviationOrdered By: Fadumo Barreto on 06-29-2024 Erythrocyte distribution width (RBC) [Entitic vol] 36.8 fL 35.1-43.9 [facility] Erythrocyte distribution width (RBC) [Ratio] 36.8 fl 35.1-43.9 [facility] H AND P Exam - OB/GYNon H&P 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 patient denies any significant crmaping or pain no fevers. [facility] Medical History Wears contact lenses Wears glasses Depression Anxiety Injury of head and neck Loss of consciousness Non-smoker Seasonal allergies Vocal cord dysfunction History of miscarriage PCOS (polycystic ovarian syndrome) Anxiety and depression Fatigue Asthma Home Medications ???Medication ???Instructions ???Recorded ???Last Taken ???Type albuterol sulfate 90 mcg/actuation 1 - 2 puff inhalation Q4H PRN [place] N 07/15/14 Unknown History aerosol inhaler (Ventolin HFA) sob multivit-min no.71-iron fum 28 1 cap PO DAILY 06/15/24 Unknown Hi story mg-folate no.1 1 mg-dha 300 mg capsule (PNV-[place]) sertraline 50 mg tablet (Zoloft) 50 mg [...] current occupational status: employed 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 Date Name GA/Weeks Outcome Route Bth Weight Infant Gen Labor [facility] FOB Unknown February 2023 5 spontaneous 06/29/24 6 spontaneous Delivery Date: 06/29/24 Last Updated by: Windy Fiore RN James C w/SM ROS Constitutional Constitutional: Reports systems [...] Temperature 99.2 (more content not included)... Normal [facility] Hematocrit Auto (Bld) [Volum e fraction]Ordered By: Fadumo Barreto on 06-29-2024 Hematocrit (Bld) [Volume fraction] 37.2 % 37-47 [facility] Hemoglobin measurementOrdere d By: Fadumo Barreto on 06-29-2024 Hemoglobin (Bld) [Mass/Vol] 12.7 g/dL 12.0-15. 0 [facility] MCV (mean corpuscular volume ) determinationOrdered By: Fadumo Barreto on 06-29-2024 MCV (RBC) [Entitic vol] 84.5 fL 81-99 [facility] MR/POSTOP.ANEon 03-07-2025 MR/POSTOP.ANE [facility] Medical Records Department [address] [place] [address] Anesthesia Postop Eval I 06/29/24 1524 MR#: [id number] Acct: [id number] Name: DAVID CONTI Rep #: [id number] : 1995 From: Eriberto Handy CRNA PCP: LEIGHA RothC Status:DEP SD Y Race: C Location: [facility] Anesthesia: Postop Eval I Current Vital Signs [...] Eval 1 completed: Yes 08/13/24 1240 Date Eriberto Dinh Signature: Date CC: Signed Normal [facility] MR/[id number] 06-29-2024 [facility] Medical Records Department [address] [place] [address] Anesthesia Postop Eval II 06/29/24 1530 MR#: [id number] Acct: [id number] Name: DAVID CONTI ASHKAN Rep #: [id number] : 1995 28 From: Bay Solares MD PCP: TOMAS Roth Status:REG SDC Y Race: C Location: [place] [address] Anesthesia Postop Eval I Sum Postop Eval Completion status Anesthesia document: Postop Eval 1 completed: Yes Anesthesia Postop Eval I Summary Anesthesia Postop Eval I Summary: Anesthesia Postop Eval I: Assessment Summary Airway patent Yes 06/29/24 15:25 METAL CASKET [email or web address] Spontaneous unlabored Yes 06/29/24 15:25 METAL CASKET [email or web address] respirations Mental status Awake,Calm 06/29/24 15:25 METAL CASKET [email or web address] nausea No 06/29/24 15:25 METAL CASKET [email or web address] Vomiting No 06/29/24 15:25 METAL CASKET [email or web address] Anesthesia Postop Eval I: Fluid Summary Crystalloid volume administer 250 06/29/24 15:25 METAL CASKET [email or web address].PKEL (ml) Colloids volume administered ( ml) Blood Product volume administered (ml) Total IV fluid infused 250 06/29/24 15:25 METAL CASKET [email or web address] Anesthesia Postop Eval I: Summary Notes Anesthesia Complication No 06/29/24 15:25 METAL CASKET [email or web address] Anesthesia Complication Comment: Post-operative progress note Anesthesia: Postop Eval II Evaluation Mental status: Awake Pain Level: 0 nausea: No Vomiting: No 06/29/24 1531 Date Bay Dinh Signature: Date CC: Signed Normal [facility] Mean corpuscular hemoglobin (MCH) determinationOrdered By: Fadumo Barreto on 06-29-2024 MCH (RBC) [Entitic mass] 28.9 pg 27.0-32.0 [facility] Mean corpuscular hemoglobin concentration (MCHC) determinationOrdered By: Fadumo Barreto on 06-29-2024 MCHC (RBC) [Mass/Vol] 34.1 g/dL 32-36 [facility] Mean platelet volume determi nationOrdered By: Fadumo Barreto on 06-29-2024 Platelet mean volume (Bld) [Entitic vol] 11.2 fL 6.2-12.0 [facility] Operative Reporton Operative Report [facility] Medical Records Department [address] [place] [address] Operative Report 06/29/24 1457 MR#: [id number] Acct: [id number] Name: DAVID CONTI Rep #: [id number] : 1995 28 From: Fadumo Barreto MD PCP: Joaquina Morales, CUT OFF SAWYEROzzy Status:DEP [facility] Location: [facility] Problems Associated Problem List Diagnoses (1) Missed : Procedures Urinary/Genital 52xxx-59xxx: 55680 Trmt of incomplete Ab, any TM Operative Report (Standard) Operative Information Date of Procedure: 06/29/24 Pre-Operative Diagnosis: see problem list comments Post-Operative Diagnosis: same Surgery/Procedure Performed: suction dilation and curettage deputy k 9: No Type of Anesthesia: IV Sedation and [...] 6 weeks miscarriage Complications Complications: No 06/29/24 1629 Cosigner Signature (if applicable): CC: TOMAS Morales; Dr. Fadumo Barreto MD Signed Normal [facility] Platelet countOrdered By: Poonam Barreto on 06-29-2024 Platelets (Bld) [#/Vol] 340 10*3/uL 150-450 [facility] RBC Auto (Bld) [#/Vol]Ordere d By: Fadumo Barreto on 06-29-2024 RBC (Bld) [#/Vol] 4.40 10*6/uL 4.2-5.4 [facility] Surgery Specimen Level Bernard 06-29-2024 Surgery Specimen Level IV ----- Patient Age/Sex Location Account Attending Physician DAVID CONTI / [facility] [id number] Dr. Fadumo Barreto MD Specimen: [id number] Received: 06/29/24-1724 Status: NARA Boyle Num: [id number] Spec Type: PROD CONC Subm Dr: Dr. [...] identified, but no parts are identified. RS3 07/02/2024 CPT: 37257 Patient Age/Sex Location Account Attending Physician DAVID CONTI / [facility] [id number] Dr. Fadumo Barreto MD Signed (signatur e on file) Dr. Ingrid Doshi MD 07/04/24 0932 Normal [facility] Comment on above: Performed By: #### L 700.6800 #### [facility] Laboratory [address] [place], [place], [address] Type AND Screenon 06-29-2024 ABO and Rh group Nom (Bld) Blood group O Rh(D) positive Normal [facility] Comment on above: Order Comment: Afsaneho n for Laboratory Test pre opt Performed By: #### L 700.6800 #### [facility] [address] [place], [place], [address] White blood cell (WBC) count Ordered By: Fadumo Barreto on 06-29-2024 WBC (Bld) [#/Vol] 9.0 10*3/uL 4.4-11.0 [facility] Transvaginal w/Preg USon Transvaginal w/Preg US [facility] Imaging Services [address] [place] [address] [id number] Transvaginal w/Preg US MR#: [id number] Acct: [id number] Name: DAVID CONTI Rep #: [id number] : 1995 F 28 From: Lui dickens MD PCP: TOMAS Roth Status: REG CLI Study: Transvaginal w/Preg US Date of Exam: 06/28/24 Exam# [id number] Ordering Dr: Nikole Chang CNM PROCEDURE: TRANSVAGINAL [...] and unremarkable. DIMENSIONS: Parameter Measurement / EGA [place] Rump Length: 4 mm/6 weeks and 2 [...] at this time. Follow-up recommended. Reading Location: [id number] CC: ALIX Chang; CUT OFF SAWYER-C Joaquina Morales Cover Assembler: Signed Normal [facility] Chlamydia/GC SULEMA aptimaon CHLAMY,NUC ACID Negative Normal Negative [facility] Comment on above: Performed By: #### L 548.7226 #### [facility] [address] [place], [place], [id number] GC BY NUC ACID Negative Normal Negative [facility] Comment on above: Result Comment: Perf ormed at: =G - [facility] [address] [id number] Last Sawyer: Malika Thompson MD, Phone: [phone] Performed By: #### L 626.7993 #### [facility] [address] [place], [address] HCG ( test) QlOrder ed By: Isaura Evans on 06-25-2024 Human Chorionic Gonadotropin, Quant 82503 mIU/mL High <9 [facility] Comment on above: Gestational Age0.2-1 Week: 5-50 mIU/mL1-2 Weeks: 50-500 mIU/mL2-3 Weeks: 100-5000 mIU/mL3-4 Weeks: 500-10,000 mIU/mL4-5 Weeks:1000-50,000 mIU/mL5-6 Weeks: 10,000-100,000 mIU/mL6-8 Weeks: 15,000-200,000 mIU/mL2-3 Months:10,000-100,000 mIU/mL Electronic Device Monitor Office Visit Reporton 06-25-2024 Electronic Device Monitor Office Visit Report [facility] [address], [address] [place] [address] OFFICE VISIT Date of Service: 06/25/24 MR#: [id number] Acct: [id number] Name: DAVID CONTI Rep #: [id number] : 1995 Provider: Dr. Isaura Jasso DO Age/Sex: 28/F Location: [facility] Status: Signed Intake Vital Signs 06/21/24 10:50 06/25/24 13:01 06/25/24 13:01 Height 5 ft 4 in 5 ft 4 in 5 ft 4 in Weight: 165 lb BMI 28.3 BP 106/70 Intake Visit Reasons: discuss miscarriage. Marketing Communications Associate Required: No Is patient in pain?: No Allergies tree and shrub pollen Allergy (Mild, Verified 06/25/24 13:00) Other weed pollen Allergy (Mild, Verified 06/25/24 13:00) Other Medications ???Medication ???Instructions ???Recorded ???Confirmed ???Type albuterol sulfate 90 mcg/actuation 1 - 2 puff inhalation Q4H PRN KS N 07/15/14 06/25/24 History aerosol inhaler (Ventolin HFA) sob multivit-min no.71-iron fum 28 cap PO 06/15/24 06/25/24 History mg-folate no.1 1 mg-dha 300 mg capsule (PNV-[place]) sertraline 50 mg tablet (Zoloft) 50 mg [...] current occupational status: employed current occupation: [employer] Prior current occupational exposures/hazards: No pets and animals: [...] 3-4 times per week duration: 15-30 minutes/day tanika/voodoo: Muslim seatbelt use: always do you feel safe at home: Yes 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 Normal [facility] Serum human chorionic gonado tropin detection for pregnancyOrdered By: Isaura Evans on 06-25-2024 HCG ( test) Ql [address] mIU/mL High <9 [facility] Comment on above: Gestational Age0.2-1 Week: 5-50 mIU/mL1-2 Weeks: 50-500 mIU/mL2-3 Weeks: 100-5000 mIU/mL3-4 Weeks: 500-10,000 mIU/mL4-5 Weeks:1000-50,000 mIU/mL5-6 Weeks: 10,000-100,000 mIU/mL6-8 Weeks: 15,000-200,000 mIU/mL2-3 Months:10,000-100,000 mIU/mL Type AND Screenon 06-25-2024 ABO and Rh group Nom (Bld) Blood group O Rh(D) positive Normal [facility] Comment on above: Order Comment: PN Performed By: #### L 700.8000, BTS #### [facility] [address] [place], [place], [address] hCG Titer Quant., Serumon HCG QUANT. 80984 mIU/mL High <9 non-preg [facility] Comment on above: Result Comment: Gest ational Age 0.2-1 Week: 5-50 mIU/mL 1-2 Weeks: 50-500 mIU/mL 2-3 Weeks: 100-5000 mIU/mL 3-4 Weeks: 500-10,000 mIU/mL 4-5 Weeks:1000-50,000 mIU/mL 5-6 Weeks: 10,000-100,000 mIU/mL 6-8 Weeks: 15,000-200,000 mIU/mL 2-3 Months:10,000-100,000 mIU/mL Performed By: #### L 700.8000, BTS #### [facility] [place], [address] HCG ( test) QlOrder ed By: Nikole Chang on 06-23-2024 Human Chorionic Gonadotropin, Quant 87428 mIU/mL High <9 [facility] Comment on above: Gestational Age0.2-1 Week: 5-50 mIU/mL1-2 Weeks: 50-500 mIU/mL2-3 Weeks: 100-5000 mIU/mL3-4 Weeks: 500-10,000 mIU/mL4-5 Weeks:1000-50,000 mIU/mL5-6 Weeks: 10,000-100,000 mIU/mL6-8 Weeks: 15,000-200,000 mIU/mL2-3 Months:10,000-100,000 mIU/mL Serum human chorionic gonado tropin detection for pregnancyOrdered By: Nikole Chang on 06-23-2024 HCG ( test) Ql 22897 mIU/mL High <9 [facility] Comment on above: Gestational Age0.2-1 Week: 5-50 mIU/mL1-2 Weeks: 50-500 mIU/mL2-3 Weeks: 100-5000 mIU/mL3-4 Weeks: 500-10,000 mIU/mL4-5 Weeks:1000-50,000 mIU/mL5-6 Weeks: 10,000-100,000 mIU/mL6-8 Weeks: 15,000-200,000 mIU/mL2-3 Months:10,000-100,000 mIU/mL hCG Titer Quant., Serumon HCG QUANT. 00310 mIU/mL High <9 non-preg [facility] Comment on above: Result Comment: Gest ational Age 0.2-1 Week: 5-50 mIU/mL 1-2 Weeks: 50-500 mIU/mL 2-3 Weeks: 100-5000 mIU/mL 3-4 Weeks: 500-10,000 mIU/mL 4-5 Weeks:1000-50,000 mIU/mL 5-6 Weeks: 10,000-100,000 mIU/mL 6-8 Weeks: 15,000-200,000 mIU/mL 2-3 Months:10,000-100,000 mIU/mL Performed By: #### L 700.8000 #### [facility] [address] [place], [place], [id number] Urine Cultureon 06-22-2024 URC Culture exhibits no growth. Normal [facility] Comment on above: Performed By: #### L 700.6800 #### [facility] [address] [place], [place], [id number] C. trachomatis rRNA SULEMA+prob e Ql (Unsp spec)Ordered By: Nikole Chang on 06-21-2024 Chlamydia DNA (SULEMA) Negative Negative [facility] Chlamydia trachomatis rRNA d etection by probe and target amplification methodOrdered By: Nikole Chang on 06-21-2024 C. trachomatis rRNA SULEMA+probe Ql (Unsp spec) Negative Negative [facility] HCG ( test) QlOrder ed By: Nikole Chang on 06-21-2024 Human Chorionic Gonadotropin, Quant 25640 mIU/mL High <9 [facility] Comment on above: Gestational Age0.2-1 Week: 5-50 mIU/mL1-2 Weeks: 50-500 mIU/mL2-3 Weeks: 100-5000 mIU/mL3-4 Weeks: 500-10,000 mIU/mL4-5 Weeks:1000-50,000 mIU/mL5-6 Weeks: 10,000-100,000 mIU/mL6-8 Weeks: 15,000-200,000 mIU/mL2-3 Months:10,000-100,000 mIU/mL Neisseria gonorrhoeae nuclei c acid detection by amplified probe techniqueOrdered By: Nikole Chang on 06-21-2024 N. gonorrhoeae DNA SULEMA+probe Ql (Unsp spec) Negative Negative [facility] Comment on above: Performed at: =[facility] [address] [place] [id number] Director: Malika Thompson MD, Phone: [phone] Electronic Device Monitor Office Visit Reporton 06-21-2024 Electronic Device Monitor Office Visit Report [facility]'s [address], [address] [place] [address] OFFICE VISIT Date of Service: 06/21/24 MR#: [id number] Acct: [id number] Name: DAVID CONTI Rep #: [id number] : 1995 Provider: ALIX Bell ams Age/Sex: 28/F Location: [facility] Status: Signed Intake Vital Signs 02/23/24 10:34 05/21/24 11:52 06/21/24 10:50 Height 5 ft 4 in 5 ft 4 in 5 ft 4 in Weight: 168 lb 4 oz BMI 28.8 BP 124/77 H Intake Visit Reasons: 9WK NOB LMP 04/18/24 Marketing Communications Associate Required: No Is patient in pain?: No Feel stressed/tense/nerv ous/anxious/difficu lty sleeping: not at all Allergies tree and shrub pollen Allergy (Mild, Verified 06/21/24 10:55) Other weed pollen Allergy (Mild, Verified 06/21/24 10:55) Other Medications ???Medication ???Instructions ???Recorded ???Confirmed ???Type albuterol sulfate 90 mcg/actuation 1 - 2 puff inhalation Q4H PRN KS N 07/15/14 02/23/24 History aerosol inhaler (Ventolin HFA) sob multivit-min no.71-iron fum 28 cap PO 06/15/24 History mg-folate no.1 1 mg-dha 300 mg capsule (PNV-[place]) sertraline 50 mg tablet (Zoloft) 50 mg [...] current occupational status: employed current occupation: [employer] Prior current occupational exposures/hazards: No pets and animals: [...] 3-4 times per week duration: 15-30 minutes/day tanika/voodoo: Muslim seatbelt use: always do you feel safe at home: Yes 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 Normal [facility] Serum human chorionic gonado tropin detection for pregnancyOrdered By: Nikole Chang on 06-21-2024 HCG ( test) Ql 24936 mIU/mL High <9 [facility] Comment on above: Gestational Age0.2-1 Week: 5-50 mIU/mL1-2 Weeks: 50-500 mIU/mL2-3 Weeks: 100-5000 mIU/mL3-4 Weeks: 500-10,000 mIU/mL4-5 Weeks:1000-50,000 mIU/mL5-6 Weeks: 10,000-100,000 mIU/mL6-8 Weeks: 15,000-200,000 mIU/mL2-3 Months:10,000-100,000 mIU/mL Urine cultureOrdered By: Jere Chang on 06-21-2024 Bacteria identified Cx Nom (U) Culture exhibits no growth. [facility] Bacteria identified Cx Nom (U) Culture exhibits no growth. [facility] hCG Titer Quant., Serumon HCG QUANT. 27366 mIU/mL High <9 non-preg [facility] Comment on above: Result Comment: Gest ational Age 0.2-1 Week: 5-50 mIU/mL 1-2 Weeks: 50-500 mIU/mL 2-3 Weeks: 100-5000 mIU/mL 3-4 Weeks: 500-10,000 mIU/mL 4-5 Weeks:1000-50,000 mIU/mL 5-6 Weeks: 10,000-100,000 mIU/mL 6-8 Weeks: 15,000-200,000 mIU/mL 2-3 Months:10,000-100,000 mIU/mL Performed By: #### L 100.0100 #### [facility] [address] [place], [address] HCG ( test) QlOrder ed By: Isaura Evans on 05-19-2024 Human Chorionic Gonadotropin, Quant 28 mIU/mL High <4 [facility] Comment on above: hCG levels with Gest ational AgeGestational Age hCG mIU/mL (IU/L)0.2 - 1 week 5 - 501-2 weeks 50 - 5002-3 weeks 100 - 63314-7 weeks 500 - 477308-2 weeks 1000 - 663324-6 weeks 97992 - 100,0006-8 weeks 38525 - 200,0002-3 months 87842 - 100,000 Serum human chorionic gonado tropin detection for pregnancyOrdered By: Isaura Evans on 05-19-2024 HCG ( test) Ql 28 mIU/mL High <4 [facility] Comment on above: hCG levels with Gest ational AgeGestational Age hCG mIU/mL (IU/L)0.2 - 1 week 5 - 501-2 weeks 50 - 5002-3 weeks 100 - 78005-8 weeks 500 - 715477-7 weeks 1000 - 494216-8 weeks 32789 - 100,0006-8 weeks 73483 - 200,0002-3 months 41455 - 100,000 hCG Titer Quant., Serumon HCG QUANT. 28 mIU/mL High 1-3 [facility] Comment on above: Order Comment: zulma tristan 48hr Result Comment: hCG levels with Gestational Age Gestational Age hCG mIU/mL (IU/L) 0.2 - 1 week 5 - 50 1-2 weeks 50 - 500 2-3 weeks 100 - 5000 3-4 weeks 500 - 54174 4-5 weeks 1000 - 73707 5-6 weeks 31734 - 100,000 6-8 weeks 19099 - 200,000 2-3 months 00758 - 100,000 Performed By: #### L 700.8000 #### [facility] [address] [place], [place], [address] HCG ( test) QlOrder ed By: Isaura Evans on 05-17-2024 Human Chorionic Gonadotropin, Quant 8 mIU/mL High <4 [facility] Serum human chorionic gonado tropin detection for pregnancyOrdered By: Isaura Evans on 05-17-2024 HCG ( test) Ql 8 mIU/mL High <4 [facility] hCG Titer Quant., Serumon HCG QUANT. 8 mIU/mL High 1-3 [facility] Comment on above: Performed By: #### L 3100.5400 #### [facility] [address] [place], [address] PROGESTERONE 4317on 05-09-19 25 PROGESTERONE 2.8 ng/mL Normal . [facility] Comment on above: Order Comment: N 21 day progesterone Result Comment: Foll icular phase 0.1 - 0.9 Luteal phase 1.8 - 23.9 Ovulation phase 0.1 - 12.0 First trimester 11.0 - 44.3 Second trimester 25.4 - 83.3 Third trimester 58.7 - 214.0 Postmenopausal 0.0 - 0.1 Performed at: [address] [id number] Last Sawyer: Neil Henry PhD, Phone: [phone] Performed By: #### L 429.0435 #### [facility] [address] [place], [address] Quantitative serum progester one measurement by electrochemiluminescence immunoassay (Ordered By: Samanta Jaramillo on 05-08-2024 Progesterone Level 2.8 ng/mL . [facility] Comment on above: Follicular phase 0.1 - 0.9 Luteal phase 1.8 - 23.9 Ovulation phase 0.1 - 12.0 First trimester 11.0 - 44.3 Second trimester 25.4 - 83.3 Third trimester 58.7 - 214.0 Postmenopausal 0.0 - 0.1Performed at: [address] [id number] Director: Neil Henry PhD, Phone: [phone] PROGESTERONE 4317on 03-27-20 PROGESTERONE 0.2 ng/mL Normal . [facility] Comment on above: Order Comment: N 21 day progesterone [id number] Result Comment: Foll icular phase 0.1 - 0.9 Luteal phase 1.8 - 23.9 Ovulation phase 0.1 - 12.0 First trimester 11.0 - 44.3 Second trimester 25.4 - 83.3 Third trimester 58.7 - 214.0 Postmenopausal 0.0 - 0.1 Performed at: [facility] [id number] Last Sawyer: Neil Henry PhD, Phone: [phone] Performed By: #### L 038.2600, L3910.1624 #### [facility] [address] [place], [place], [address] PROLACTIN 4465on 03-27-2024 PROLACTIN 15.5 ng/mL Normal 4.8-33.4 [facility] Comment on above: Order Comment: Comme nts: Draw on 03/19/24 Result Comment: Perf ormed at: [address] [id number] Last Sawyer: Neil Henry PhD, Phone: [phone] Performed By: #### L 5589.5400 #### [facility] [address] [place], [place], [address] Thyroid Peroxidase ABon 12-0 -2023 THYR PEROX AB < 9 Normal 0-34 [facility] Comment on above: Result Comment: Perf ormed at: [address] [id number] Last Sawyer: Neil Henry PhD, Phone: [phone] Performed By: #### L 8012600, L3992.5971 #### [facility] [address] [place], [place], [address] Prolactin [Mass/Vol]Ordered By: Kristina Cruz on 03-25-2024 Prolactin 15.5 ng/mL 4.8-33.4 [facility] Comment on above: Performed at: [facility] [address] [id number] Director: Neil Henry PhD, Phone: [phone] Quantitative serum progester one measurement by electrochemiluminescence immunoassay (Ordered By: Samanta Jaramillo on 03-25-2024 Progesterone Level 0.2 ng/mL . [facility] Comment on above: Follicular phase 0.1 - 0.9 Luteal phase 1.8 - 23.9 Ovulation phase 0.1 - 12.0 First trimester 11.0 - 44.3 Second trimester 25.4 - 83.3 Third trimester 58.7 - 214.0 Postmenopausal 0.0 - 0.1Performed at: [facility] [address] [id number] Director: Neil Henry PhD, Phone: [phone] TPO Ab QnOrdered By: Samanta mondragon on 03-25-2024 Thyroid Peroxidase Antibodies < 9 IU/mL 0-34 [facility] Comment on above: Performed at: [facility] [address] [id number] Director: Neil Henry PhD, Phone: [phone] L900.0111on 03-07-2024 REPROSOURCE SEE SCANNED REPORT Normal [facility] Comment on above: Performed By: #### L 3100.5400 #### [facility] [address] [place], [place], [address] No Panel InformationOrdered By: Samanta Jaramillo on 03-07-2024 Miscellaneous Test Comment SEE SCANNED REPORT [facility] PAP I-G w/rfx hrHPV-Aptimaon 03-01-2024 ADEQ Comment Normal . [facility] Comment on above: Order Comment: Comme nts: Draw on 03/19/24 Result Comment: Sati sfactory for evaluation. Endocervical and/or squamous metaplastic cells (endocervical component) are present. Performed By: #### L 3100.5400 #### [facility] [address] [place], [place], [address] COMM . Normal . [facility] Comment on above: Order Comment: Comme nts: Draw on 03/19/24 Performed By: #### L 3100.5400 #### [facility] [address] [place], [address] COMMENT Comment Normal . [facility] Comment on above: Order Comment: Comme nts: Draw on 03/19/24 Result Comment: This liquid based ThinPrep(R) pap test was screened with the use of an image guided system. Performed By: #### L 3100.5400 #### [facility] [address] [place], [place], [address] DIAG Comment Normal . [facility] Comment on above: Order Comment: Comme nts: Draw on 03/19/24 Result Comment: NEGA TIVE FOR INTRAEPITHELIAL LESION OR MALIGNANCY. Performed By: #### L 3100.5400 #### [facility] [address] [place], [address] HPV RFLX Comment Normal . [facility] Comment on above: Order Comment: Comme nts: Draw on 03/19/24 Result Comment: The HPV DNA reflex criteria were not met with this specimen result therefore, no HPV testing was performed. Performed at: - [facility] [id number] Last Sawyer: Malika Thompson MD, Phone: [phone] Performed By: #### L 3100.5400 #### [facility] [address] [place], [address] PAPSMR Comment Normal . [facility] Comment on above: Order Comment: Comme nts: Draw on 03/19/24 Result Comment: The Pap smear is a screening test designed to aid in the detection of premalignant and malignant conditions of the uterine cervix. It is not a diagnostic procedure and should not be used as the sole means of detecting cervical cancer. Both false-positive and false-negative reports do occur. Performed By: #### L 3100.5400 #### [facility] [address] [place], [address] PERFORM Comment Normal . [facility] Comment on above: Order Comment: Dottie nts: Draw on 03/19/24 Result Comment: Jesús Calderon, Prototype Sewer (ASCP) Performed By: #### L 3100.5400 #### [facility] [address] [place], [place], [address] Genital Culture Comprehensiv nora 02-26-2024 VAC Reason for Exam: vaginal discharge Normal vaginal leatha isolated. No yeast, Gardnerella, Neisseria or beta-hemolytic Streptococcus isolated. Normal [facility] Comment on above: Performed By: #### L 3100.5400 #### [facility] [address] [place], [address] Gram Stainon 02-23-2024 GS Reason for Exam: vaginal discharge Gram Stain 4+ Gram positive rods 1+ Gram positive rods No Gram negative diplococci Score = 1 Interpretation: 0-3 Normal, 4-6 Intermediate, 7-10 Positive BV Normal [facility] Comment on above: Performed By: #### L 3100.5400 #### [facility] [address] [place], [address] Electronic Device Monitor Office Visit Reporton 02-23-2024 Electronic Device Monitor Office Visit Report [facility] [address], [address] [place] [address] OFFICE VISIT Date of Service: 02/23/24 MR#: [id number] Acct: [id number] Name: DAVID CONTI Rep #: [id number] : 1995 Provider: TOMAS Drummond Age/Sex: 28/F Location: [facility] Status: Signed Intake Vital Signs 02/16/24 09:32 02/23/24 10:33 02/23/24 10:34 Height 5 ft 4 in 5 ft 4 in 5 ft 4 in Weight: 157 lb BMI 26.9 BP 131/81 H Intake Visit Reasons: PAP only visit Marketing Communications Associate Required: No Is patient in pain?: No [...] disorders of vagina 02/23/24 1114 Date Kristina Ritchieigner Signature: Date (if applicable) CC: Normal [facility] Pelvic w/ Transvaginalon Pelvic w/ Transvaginal [facility] [address] [place] [address] Pelvic w/ Transvaginal MR#: [id number] Acct: [id number] Name: DAVID CONTI Rep #: [id number] : 1995 F 28 From: Glen Ramirez PCP: TOMAS Roth Status: REG CLI Study: Pelvic w/ Transvaginal Date of Exam: 02/21/24 Exam# [id number] Ordering Dr: Kristina Cruz -[id number] EXAM: US PELVIS TRANSABDOMINAL AND TRANSVAGINAL, [...] EDT , CC: TOMAS Cruz; TOMAS Morales Cover Assembler: Signed Normal [facility] DHEA Sulfateon 10-28-2024 DHEA SULFATE 286.0 ug/dL Normal 84.8-378.0 [facility] Comment on above: Order Comment: N Performed By: #### L 100.0100 #### [facility] [address] [place], [place], [address] PAP I-G w/rfx hrHPV-Aptimaon 02-20-2024 ADEQ Comment Normal . [facility] Comment on above: Order Comment: Speci men Comment: [id number] Comment: Source.............Cervix;EndocervixSpecimen Comment: LMP / Prev Treat...[id number] Comment: No. of containers..01 ThinPrep Vial Result Comment: Spec imen processed and examined but unsatisfactory for evaluation of epithelial abnormality because of insufficient cellularity. Performed By: #### L 700.6800 #### [facility] [address] [place], [place], [address] COMM . Normal . [facility] Comment on above: Order Comment: Speci men Comment: [id number] Comment: Source.............Cervix;EndocervixSpecimen Comment: LMP / Prev Treat...[id number] Comment: No. of containers..01 ThinPrep Vial Performed By: #### L 700.6800 #### [facility] [address] [place], [place], [address] COMMENT TNP Normal . [facility] Comment on above: Order Comment: Speci men Comment: [id number] Comment: Source.............Cervix;EndocervixSpecimen Comment: LMP / Prev Treat...[id number] Comment: No. of containers..01 ThinPrep Vial Result Comment: The Thin Prep(R) Head Nurse was unable to read this specimen. Therefore a manual review was performed. Performed By: #### L 700.6800 #### [facility] [address] [place], [place], [address] DIAG Comment Normal . [facility] Comment on above: Order Comment: Speci men Comment: [id number] Comment: Source.............Cervix;EndocervixSpecimen Comment: LMP / Prev Treat...[id number] Comment: No. of containers..01 ThinPrep Vial Result Comment: UNSA TISFACTORY FOR EVALUATION. Performed By: #### L 700.6800 #### [facility] [address] [place], [place], [address] HPV RFLX Comment Normal . [facility] Comment on above: Order Comment: Speci men Comment: [id number] Comment: Source.............Cervix;EndocervixSpecimen Comment: LMP / Prev Treat...[id number] Comment: No. of containers..01 ThinPrep Vial Result Comment: The HPV DNA reflex criteria were not met with this specimen result therefore, no HPV testing was performed. Performed at: [address] [id number] Last Sawyer: Malika Thompson MD, Phone: [phone] Performed By: #### L 700.6800 #### [facility] [address] [place], [place], [address] PAPSMR Comment Normal . [facility] Comment on above: Order Comment: Speci men Comment: [id number] Comment: Source.............Cervix;EndocervixSpecimen Comment: LMP / Prev Treat...[id number] Comment: No. of containers..01 ThinPrep Vial Result Comment: The Pap smear is a screening test designed to aid in the detection of premalignant and malignant conditions of the uterine cervix. It is not a diagnostic procedure and should not be used as the sole means of detecting cervical cancer. Both false-positive and false-negative reports do occur. Performed By: #### L 700.6800 #### [facility] [address] [place], [place], [address] PERFORM Comment Normal . [facility] Comment on above: Order Comment: Speci men Comment: [id number] Comment: Source.............Cervix;EndocervixSpecimen Comment: LMP / Prev Treat...[id number] Comment: No. of containers..01 ThinPrep Vial Result Comment: Leatha Omalley, Prototype Sewer (ASCP) Performed By: #### L 700.6800 #### [facility] [address] [place], [address] QC REV Comment Normal . [facility] Comment on above: Order Comment: Speci men Comment: [id number] Comment: Source.............Cervix;EndocervixSpecimen Comment: LMP / Prev Treat...[id number] Comment: No. of containers..01 ThinPrep Vial Result Comment: Cristine Brush, Supervisory Prototype Sewer (ASCP) Performed By: #### L 700.6800 #### [facility] [address] [place], [place], [address] RECOMM Comment Normal . [facility] Comment on above: Order Comment: Speci men Comment: [id number] Comment: Source.............Cervix;EndocervixSpecimen Comment: LMP / Prev Treat...[id number] Comment: No. of containers..01 ThinPrep Vial Result Comment: Sugg est follow up as clinically appropriate. Performed By: #### L 700.6808 #### [facility] [address] [place], [address] PROLACTIN 4465on 02-20-2024 PROLACTIN 37.7 ng/mL High 4.8-33.4 [facility] Comment on above: Order Comment: N Performed By: #### L 100.0100 #### [facility] [address] [place], [place], [address] Testosterone Freeon 02-20-20 TESTOSTER FREE 4.6 pg/mL Abnormal 0.0-4.2 [facility] Comment on above: Order Comment: N Result Comment: Perf ormed at: - [facility] [address] [id number] Last Sawyer: Neil Henry PhD, Phone: [phone] Performed at: [facility] [id number] Last Sawyer: Shy Lockett MD, Phone: [phone] Performed By: #### L 100.0100 #### [facility] [address] [place], [place], [address] Electronic Device Monitor Office Visit Reporton 02-16-2024 Electronic Device Monitor Office Visit Report [facility] [address], [address] [place] [address] OFFICE VISIT Date of Service: 02/16/24 MR#: [id number] Acct: [id number] Name: DAVID CONTI Rep #: [id number] : 1995 Provider: TOMAS bingham Age/Sex: 28/F Location: [facility] Status: Signed Intake Vital Signs 02/13/24 07:28 02/16/24 09:25 02/16/24 09:32 Height 5 ft 4 in 5 ft 4 in 5 ft 4 in Weight: 159 lb 6 oz BMI 27.3 BP 110/70 Intake Visit Reasons: Infertility Consult Chief Complaint: Infertility consult Marketing Communications Associate Required: No Is patient in pain?: No [...] medications/vitamin s/supplements: lisinopril, lexapro, fenofibrate Partner's employment: [employer] any additional risk factors identified: no Female [...] call for provera challenge. 02/16/24 1238 Date Saamnta Jaramillo NP CUT OFF SAWYER-C Cosigner Signature: Date (if applicable) CC: Normal [facility] PROGESTERONE 4317on 02-16-20 PROGESTERONE 0.7 ng/mL Normal . [facility] Comment on above: Order Comment: N Result Comment: Foll icular phase 0.1 - 0.9 Luteal phase 1.8 - 23.9 Ovulation phase 0.1 - 12.0 First trimester 11.0 - 44.3 Second trimester 25.4 - 83.3 Third trimester 58.7 - 214.0 Postmenopausal 0.0 - 0.1 Performed at: [facility] [address] [id number] Last Sawyer: Neil Henry PhD, Phone: [phone] Performed By: #### L 100.0100 #### [facility] [address] [place], [address] Comprehensive Metabolic Prof ilon 02-15-2024 Albumin [Mass/Vol] 4.2 g/dL Normal 3.2-5.0 [facility] Comment on above: Order Comment: N Performed By: #### L 100.0100 #### [facility] [address] [place], [address] Albumin/Globulin [Mass ratio] 1.3 {ratio} Normal 0.9-2.4 [facility] Comment on above: Order Comment: N Performed By: #### L 100.0100 #### [facility] [address] [place], [address] ALK P 79 U/L Normal 45-117 [facility] Comment on above: Order Comment: N Performed By: #### L 100.0100 #### [facility] [address] [place], [address] ALT [Catalytic activity/Vol] 51 U/L Normal 13-56 [facility] Comment on above: Order Comment: N Performed By: #### L 100.0100 #### [facility] [address] [place], [address] AST [Catalytic activity/Vol] 22 U/L Normal 15-37 [facility] Comment on above: Order Comment: N Performed By: #### L 100.0100 #### [facility] [address] [place], [address] Bilirubin [Mass/Vol] 0.30 mg/dL Normal 0.20-1.00 [facility] Comment on above: Order Comment: N Result Comment: For patients on eltrombopag therapy, use of Dimension Aurora TBIL is not recommended. Performed By: #### L 100.0100 #### [facility] [address] [place], [address] BUN/CRE 11.0 RATIO Normal 10-20 [facility] Comment on above: Order Comment: N Performed By: #### L 100.0100 #### [facility] [address] [place], [address] CA,Total 8.9 mg/dL Normal 8.5-10.1 [facility] Comment on above: Order Comment: N Performed By: #### L 100.0100 #### [facility] [address] [place], [address] Chloride [Moles/Vol] 109 mmol/L High 98-107 [facility] Comment on above: Order Comment: N Performed By: #### L 100.0100 #### [facility] [address] [place], [address] CO2 [Moles/Vol] 26.0 mmol/L Normal 21.0-32.0 [facility] Comment on above: Order Comment: N Performed By: #### L 100.0100 #### [facility] [address] [place], [address] Creatinine [Mass/Vol] 0.82 mg/dL Normal 0.55-1.02 [facility] Comment on above: Order Comment: N Result Comment: The validity of the calculated GFR GFRAA in patients over 70 years has not been determined. Clinical correlation is essential. Performed By: #### L 100.0100 #### [facility] [address] [place], [address] EST GFR - AA 108 mL/min Normal >60 [facility] Comment on above: Order Comment: N Result Comment: Afri can Jordanian GFR Calc Performed By: #### L 100.0100 #### [facility] [address] [place], [address] GAP 5 Normal 5-15 [facility] Comment on above: Order Comment: N Performed By: #### L 100.0100 #### [facility] [address] [place], [address] GFR/1.73 sq M.predicted among non-blacks MDRD (S/P/Bld) [Vol rate/Area] 90 mL/min/{1.73_m2} Normal >60 [facility] Comment on above: Order Comment: N Result Comment: Non- GFR Calc Performed By: #### L 100.0100 #### [facility] [address] [place], [address] Globulin (S) [Mass/Vol] 3.3 g/dL Normal 2.2-4.2 [facility] Comment on above: Order Comment: N Performed By: #### L 100.0100 #### [facility] [address] [place], [address] Glucose [Mass/Vol] 105 mg/dL Normal 74-106 [facility] Comment on above: Order Comment: N Result Comment: Fast ing Glucose result from 100 to 125 mg/dL suggests IMPAIRED HOMEOSTASIS per A.D.A. criteria. Performed By: #### L 100.0100 #### [facility] [address] [place], [address] Potassium [Moles/Vol] 4.0 mmol/L Normal 3.5-5.1 [facility] Comment on above: Order Comment: N Performed By: #### L 100.0100 #### [facility] [address] [place], [address] Sodium [Moles/Vol] 140 mmol/L Normal 136-145 [facility] Comment on above: Order Comment: N Performed By: #### L 100.0100 #### [facility] [address] [place], [address] T PROT 7.5 g/dL Normal 6.4-8.2 [facility] Comment on above: Order Comment: N Performed By: #### L 100.0100 #### [facility] [address] [place], [address] Urea nitrogen [Mass/Vol] 9 mg/dL Normal 7-18 [facility] Comment on above: Order Comment: N Performed By: #### L 100.0100 #### [facility] [address] [place], [address] Hemoglobin A1con 02-15-2024 HbA1c (Bld) [Mass fraction] 5.3 % Normal 3.8-5.6 [facility] Comment on above: Result Comment: Norm al < 5.7 % Prediabetic 5.7 - 6.4 % Diabetic >or= 6.5 % Please note range changes. Performed By: #### L 3100.5400 #### [facility] [address] [place], [address] Lipid Profileon 02-15-2024 Cholesterol [Mass/Vol] 237 mg/dL High 200 [facility] Comment on above: Order Comment: N Result Comment: <200 mg/dL Desirable 200-240 mg/dL Borderline >240 mg/dL High Risk Performed By: #### L 100.0100 #### [facility] [address] [place], [address] Cholesterol in HDL [Mass/Vol] 72 mg/dL Normal [facility] Comment on above: Order Comment: N Result Comment: The drugs N-Acetylcysteine and Metamizole may falsely depress this assay. Reference Range HDL <40 mg/dL Low HDL Cholesterol HDL >or= 60 mg/dL High HDL Cholesterol Performed By: #### L 100.0100 #### [facility] [address] [place], [address] Cholesterol in LDL [Mass/Vol] 148 mg/dL High 0-130 [facility] Comment on above: Order Comment: N Performed By: #### L 100.0100 #### [facility] [address] [place], [address] Cholesterol in VLDL [Mass/Vol] 17 mg/dL Normal 5-40 [facility] Comment on above: Order Comment: N Performed By: #### L 100.0100 #### [facility] [address] [place], [address] Triglyceride [Mass/Vol] 86 mg/dL Normal [facility] Comment on above: Order Comment: N Result Comment: The drugs N-Acetylcysteine and Metamizole may falsely depress this assay. Serum Triglycerides Reference Interval Normal <150 mg/dL Borderline high 150 - 199 mg/dL High 200 - 499 mg/dL Very High > or = 500 mg/dL Performed By: #### L 100.0100 #### [facility] [address] [place], [address] T4 Free Directon 02-15-2024 T4 FREE DIRECT 0.84 ng/dL Normal 0.76-1.46 [facility] Comment on above: Order Comment: N Performed By: #### L 100.0100 #### [facility] [address] [place], [address] Thyroid Stim Hormone (TSH)on 02-15-2024 TSH 2.330 uIU/mL Normal 0.358-3.740 [facility] Comment on above: Order Comment: N Performed By: #### L 100.0100 #### [facility] [address] [place], [address] Electronic Device Monitor Office Visit Reporton 02-13-2024 Electronic Device Monitor Office Visit Report [facility] [address], [address] [place] [address] OFFICE VISIT Date of Service: 02/13/24 MR#: [id number] Acct: [id number] Name: DAVID CONTI Rep #: [id number] : 1995 Provider: TOMAS Drummond Age/Sex: 28/F 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) Chief Complaint: annual new Marketing Communications Associate Required: No Is patient in pain?: No [...] as: straight/heterosexu al Current gender identity: female [facility] Medical History (Updated 02/13/24 @ 07:31 by Peace Lee) History of miscarriage PCOS (polycystic ovarian syndrome) Anxiety and depression Fatigue Asthma Surgical History (Updated 02/13/24 @ 07:30 by Peace Lee) History of wisdom tooth extraction History of ankle surgery Family History (Updated 02/13/24 @ 07:29 by Peace Lee) Grandmother Breast cancer Social History (Updated 02/13/24 @ 07:30 by Paece Lee) do you think of yourself as: [...] of t (more content not included)... Normal [facility] 36on 12-05-2023 36 Not due for refill. Normal [facility] 36 Refill not yet due. Normal [facility] Office Visiton 09-15-2023 Follow-up visit [id number] David Conti 1995 F Date Provider Department Center 09/15/2023 [id number] MORALES [facility] Family History Problem Relation Age of Onset Thyroid disease Mother Alcaraz syndrome Father Asthma Sister Breast cancer Maternal Grandmother Cancer Maternal Grandfather Cancer Paternal Grandfather Family Status - Relation Status Age at Mother Alive Father Alive Sister Sister Maternal Grandmother Maternal Grandfather Paternal Grandmother Alive Paternal Grandfather Level of Service:[address] [place] OFFICE/OUTPATIENT ESTABLISHED LOW MDM 20 MIN Reason for Visit and Comments: Medication Check [4388515251] Foot Problem [229] Normal [facility] PATINSon 09-15-2023 PATINS Ice and elevate foot couple times a day, be careful not to wear shoes that pinch/pressure to much on top of foot. Normal [facility] Progress Noteon 09-15-2023 Progress Note Stable. Continue Wellbutrin 300 mg daily Normal [facility] Progress Note Left foot exam unremarkable and currently asymptomatic. Likely superficial nerve inflammation. Recommend avoiding shoes that are tight across the top of the foot, ice and elevate 2-3 times daily and follow-up if fails to resolve. Unknown etiology at this time otherwise Normal [facility] Progress Note 09/15/2023 David Conti (: 1995) [...] DIVIDE 09/08/23 Yes Tara Herrera APRN - PUBLIC HEALTH SANITARIAN TECHNICIAN Channingeber 0.15-30 MG-MCG tablet Take 1 tablet by mouth daily. Yes Historical Provider, metFORMIN (Glucophage) 500 MG tablet Take 1 tablet by mouth in the morning and 1 tablet in the evening. Take with meals. 05/18/23 09/15/23 Yes Historical Provider, naltrexone (Depade) 50 MG tablet Take 25 mg by mouth in the morning and 25 mg in the evening. Yes Historical Provider, Aofnoymw-Mlt-My-FA (/IRON PO) Take 1 tablet by mouth [...] authenticate this note. Joaquina Morales APRN - SANDIP 09/15/2023 4:40 PM [facility] Progress Note Patient was identified by name and Date of . [facility] 36on 09-08-2023 36 Rx sent. Follow up as scheduled. [facility] 36 Prescription Request: Last medication check: 06/15/23 Last physical exam: 03/23/23 Next scheduled appointment: 09/15/23 Last date of refill on this medication 07/14/23 [facility] Office Visiton 06-15-2023 Follow-up visit [id number] David Conti 1995 F Date Provider Department Center 06/15/2023 [id number] BLISS [facility] Family History Problem Relation Age of Onset Thyroid disease Mother Alcaraz syndrome Father Asthma Sister Breast cancer Maternal Grandmother Cancer Maternal Grandfather Cancer Paternal Grandfather Family Status - Relation Status Age at Mother Alive Father Alive Sister Sister Maternal Grandmother Maternal Grandfather Paternal Grandmother Alive Paternal Grandfather Level of Service:[address] [place] OFFICE/OUTPATIENT ESTABLISHED MOD MDM 30 MIN Reason for Visit and Comments: Medication Check [[id number]] [facility] PATINSon 06-15-2023 PATINS Asked about extended release metformin. Give update in about a month- if you want to increase dose of Wellbutrin or not [facility] Progress Noteon 06-15-2023 Progress Note Recommend following up with [employer] regarding side effects of metformin and requesting if she can take extended release metformin to see if that is better tolerated. Normal [facility] Progress Note Denies any suicidal or homicidal ideation. Anxiety and depression have improved we will continue Wellbutrin 150 mg daily, patient to give us an update in about 1 month via [employer] if she would like to increase the dose to 300 mg. We will schedule her for follow-up in 3 months [facility] Progress Note Patient was identified by name and Date of . [facility] Progress Note 06/15/2023 David Conti (: 1995) is a 27 y.o. female , Established patient, here for evaluation of the following chief complaint(s): Medication Check ASSESSMENT/PLAN: 1. Anxiety and depression Assessment & Plan: Denies any suicidal or homicidal ideation. Anxiety and depression have improved we will continue Wellbutrin 150 mg daily, patient to give us an update in about 1 month via [employer] if she would like to increase the dose to 300 mg. We will schedule her for follow-up in 3 months 2. PCOS (polycystic ovarian syndrome) Assessment & Plan: Recommend following up with [employer] regarding side effects of metformin and requesting if she can take extended release metformin to see if that is better tolerated. Follow up for 3 month [facility]. SUBJECTIVE/OBJECTIV E: HPI - David Conti (: 1995) is a 27 y.o. female , Established patient, here for the evaluation of the following chief complaint(s): Medication Check RACING WITH IN [place] WENT WELL, WAS SUPER BUSY. Did not get to do any sightseeing as they were busy at the track every day. Got back from [place] on June 05, 2023. Patient reports she went to outpatient services director for pcos- was started on metformin and [...] with meals. 05/18/23 08/16/23 Yes Historical Provider, [id number] (/IRON PO) Take 1 tablet by mouth [...] JACINTO Roth CNP 06/15/2023 9:35 AM [facility] Office Visiton 05-16-2023 Follow-up visit [id number] David Conti 1995 F Date Provider Department Center 05/16/2023 [id number] MORALES [facility] Family History Problem Relation Age of Onset Thyroid disease Mother Alcaraz syndrome Father Asthma Sister Breast cancer Maternal Grandmother Cancer Maternal Grandfather Cancer Paternal Grandfather Family Status - Relation Status Age at Mother Alive Father Alive Sister Sister Maternal Grandmother Maternal Grandfather Paternal Grandmother Alive Paternal Grandfather Level of Service:06048 [place] OFFICE/OUTPATIENT ESTABLISHED MOD MDM 30 MIN Reason for Visit and Comments: Medication Check [[id number]] Weight Gain [180] [facility] PATINSon 05-16-2023 PATINS Start wellbutrin and decrease lexapro to 10 mg daily x 7 days, then stop the lexapro. Check Headspace vangie for meditation [facility] Progress Noteon 05-16-2023 Progress Note Will have her follow up with her outpatient services director, suspect gain posssilby from pcos. Continue exercise, healthy eating and portion control. Will stop lexapro (possible weight gain) and switch to wellbutrin. [facility] Progress Note Denies si/hi. Anxiety and depression symptoms better but still is having trouble focusing. Will taper discontinue lexapro and start wellbutrin. Follow up in about 1 month [facility] Progress Note Patient was identified by name and Date of . [facility] Progress Note 05/16/2023 David Conti (: 1995) [...] Will have her follow up with her outpatient services director, suspect gain posssilby from pcos. Continue exercise, healthy eating and portion control. Will stop lexapro (possible weight gain) and switch to wellbutrin. Follow up in about 1 month (around 06/16/2023). SUBJECTIVE/OBJECTIV E: JANINE - David Conti (: 1995) is a 27 y.o. female , Established patient, here for the evaluation of the following chief complaint(s): Medication Check and Weight Gain Stopped nicotine and stopped etoh since we last met. . Has gained some weight. She thinks it may be from going off of her control medication, Is working out with online [employer] classes daily, watching what she is eating. Is doing well as far as eating and exercising. She also is doing yoga. Stopped control. Has not had period since dec and February and has been testing. Is trying to get . Will be following up with her outpatient services director. Reports anxiety is better, but is not able to focus well still. Denies si/hi. Her and her are getting ready to go to [place] for car racing for 11 days. Her races cars. States she is looking forward to going. Prior to Admission medications Medication Sig Start Date End Date Taking? Authorizing Provider escitalopram (Lexapro) 20 MG tablet Take 1 tablet (20 mg) by mouth daily. 04/08/23 07/07/23 Yes Joaquina Morales APRN - PUBLIC HEALTH SANITARIAN TECHNICIAN MV-Min-Fe Fum-FA-DHA ( 1 PO) Take by [...] note. JACINTO Roth CNP 05/16/2023 4:24 PM [facility] Office Visiton 03-23-2023 Follow-up visit [id number] David Conti 1995 F Date Provider Department Center 03/23/2023 [id number] MORALES [facility] Family History Problem Relation Age of Onset Thyroid disease Mother Alcaraz syndrome Father Asthma Sister Breast cancer Maternal Grandmother Cancer Maternal Grandfather Cancer Paternal Grandfather Family Status - Relation Status Age at Mother Alive Father Alive Sister Sister Maternal Grandmother Maternal Grandfather Paternal Grandmother Alive Paternal Grandfather Level of Service:98228 [place] PERIODIC PREVENTIVE MED EST PATIENT 18-39 YRS Reason for Visit and Comments: Follow-up [320210] Health Maintenance [872] - Lipid-pended HIV/Hep C-declined Covid-declined PHQ-completed Pap-[facility]F (will scan in) Tdap-declined Influenza-declined ? [facility] PATINSon 03-23-2023 PATINS Melatonin 1- 5 mg nightly to help with sleep. Send update via [email or web address] to provider in 1 month on how you are doing on the lexapro 10 mg daily. [facility] Progress Noteon 03-23-2023 Progress Note Denies any suicidal or homicidal ideation. Reports improved symptoms. We will continue on Lexapro 10 mg daily she is to provide an update through [employer] in approximately 4 weeks. Consider up titration if needed at that point. [facility] Progress Note Patient was identified by name and Date of . Health Main: Lipid-pended HIV/Hep C-declined Covid-declined PHQ-completed Pap-[facility]F (will scan in) Tdap-declined Influenza-declined [facility] Progress Note 03/23/2023 David Conti (: 1995) [...] she is to provide an update through [employer] in approximately 4 weeks. Consider up titration [...] to set up with a counselor. Has [employer] which she follows for women's health. Prior [...] note. JACINTO Roth CNP 03/23/2023 1:22 PM [facility] Office Visiton 03-08-2023 Follow-up visit [id number] David Conti 1995 F Date Provider Department Center 03/08/2023 [id number] MORALES [facility] Family History Problem Relation Age of Onset Thyroid disease Mother Alcaraz syndrome Father Asthma Sister Breast cancer Maternal Grandmother Cancer Maternal Grandfather Cancer Paternal Grandfather Family Status - Relation Status Age at Mother Alive Father Alive Sister Sister Maternal Grandmother Maternal Grandfather Paternal Grandmother Alive Paternal Grandfather Level of Service:55653 [place] OFFICE/OUTPATIENT NEW MODERATE MDM 45-59 MINUTES Reason for Visit and Comments: New Patient [542] [facility] PATIJOSEPHon 03-08-2023 PATINS Start with 1/2 tab daily x 1 week, then increase to 1 whole tablet If you or someone you know needs support now, call or text 988 or chat 986Nuve ---- --------- To find providers in your area for mental health services https://findtreatme .gov/ To find additional support and information regarding mental health services and substance abuse [email or web address]. gov/ Mental Health and Psychiatry Resources [facility] [address] [phone] [phone] [facility] [address] [facility] [phone] [facility] (LGBTQIA+ inclusive) [phone] [place] Office [address] [facility] [place] [address] [place] [facility] [place] [address] [email or web address] [facility] [place], [place] [phone] Psychiatry [facility] Psychiatry [facility] [phone] [employer] Carito Clark APRN-PUBLIC HEALTH SANITARIAN TECHNICIAN (commercial insurance only) Behavioral Health Services [facility] [phone] Counseling and Psychiatry [facility] [address] [place] [address] [email or web address] [phone] [facility] Behavioral Health [facility]: [phone] [facility]: [phone] [facility] Outpatient Clinic: [phone] [facility], [address] [place] [address] [facility] (OPEN 15/11): [phone] [facility] Behavioral Health, Psychiatry and Tra[facility] Center [facility] Health [address], [address] [employer] Multiple locations in [place] Go to [email or web address] [facility] Progress Noteon 03-08-2023 Progress Note Denies any active suicidal or homicidal ideation. Symptoms are poorly controlled. Will start Lexapro 10 mg daily, recommend that she start cognitive behavioral therapy-resources provided. Close follow-up in 2 weeks sooner for any worsening symptoms [facility] Progress Note Follow-up with [employer] as directed [facility] Progress Note Symptoms are controlled. [facility] Progress Note Controlled. Has not needed her rescue inhaler over a year, continue albuterol as needed as needed [facility] Progress Note 03/08/2023 David Conti (: 1995) [...] tablet (10 mg) by mouth daily., Starting Tu03/08/2023, Until 06/06/2023, Normal 2. Mild intermittent asthma, unspecified whether complicated Assessment & Plan: Controlled. Has not needed her rescue inhaler over a year, continue albuterol as needed as needed 3. Vocal cord dysfunction Assessment & Plan: Symptoms are controlled. 4. PCOS (polycystic ovarian syndrome) Assessment & Plan: Follow-up with [employer] as directed Follow up in about 2 weeks (around 03/22/2023) for Recheck. SUBJECTIVE/OBJECTIV E: HPI - David Conti presents as new patient, previous primary care provider Randall Sigala III, last seen 10 years by previous provider. Specialists/other providers? Yes, describe: outpatient services director. Chief complaint(s): New Patient Patient presents today [...] with her mother. Is working full-time at [employer] and then part-time at [employer]. 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 Was 2 years ago to her [...] hospitalizations PCOS-was briefly on control through her [employer] however decided not to take it any longer . Is currently taking vitamins states she would be okay if she got Past Medical History: Diagnosis Date Asthma 2009 Past Surgical History: Procedure Laterality Date ANKLE SURGERY Right x 3. Dr. 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 Social Determinants of Health Financial Resource Strain: Not on file Food Insecurity: Not on file Transp (more content not included)... [facility] CBC W Auto Differential pane l (Bld)on 10-20-2021 Abs Immature Gran <0.03 <0.10 k/uL [facility] Basophils (Bld) [#/Vol] 0.03 10*3/uL <0.11 k/uL [facility] Basophils/100 WBC (Bld) 0.4 % [facility] Differential cell count method Nom (Bld) Auto [facility] Eosinophils (Bld) [#/Vol] 0.18 10*3/uL <0.46 k/ uL [facility] Eosinophils/100 WBC (Bld) 2.5 % [facility] Erythrocyte distribution width (RBC) [Ratio] 13.0 % 11.5 - 15.0 % [facility] Hematocrit (Bld) [Volume fraction] 37.3 % 36.0 - 46.0 % [facility] Hemoglobin (Bld) [Mass/Vol] 12.3 g/dL 11.5 - 15.5 g/dL [facility] Immature Gran % 0.1 % [facility] Lymphocytes (Bld) [#/Vol] 2.81 10*3/uL 1. 00 - 4.00 k/uL [facility] Lymphocytes/100 WBC (Bld) 39.7 % [facility] MCH (RBC) [Entitic mass] 28.6 pg 26. 0 - 34.0 pg [facility] MCHC (RBC) [Mass/Vol] 33.0 g/dL 30.5 - 36.0 g/dL [facility] MCV (RBC) [Entitic vol] 86.7 fL 80.0 - 100.0 fL [facility] Monocytes (Bld) [#/Vol] 0.46 10*3/uL <0.87 k/uL [facility] Monocytes/100 WBC (Bld) 6.5 % [facility] Neutrophils (Bld) [#/Vol] 3.58 10*3/uL 1. 45 - 7.50 k/uL [facility] Neutrophils/100 WBC (Bld) 50.8 % [facility] Nucleated RBC (Bld) [#/Vol] 10*3/uL <0.01 k/ uL [facility] Nucleated RBC/100 WBC (Bld) [Ratio] 0.0 /100 WBC [facility] Platelet mean volume (Bld) [Entitic vol] 11.4 fL 9.0 - 12.7 fL [facility] Platelets (Bld) [#/Vol] 276 10*3/uL 150 - 400 k/uL [facility] RBC (Bld) [#/Vol] 4.30 10*6/uL 3.90 - 5.2 0 m/uL [facility] WBC (Bld) [#/Vol] 7.07 10*3/uL 3.70 - 11. 00 k/uL [facility] HCG QUAL UR B/Oon 10-20-2021 status Negative neg - pos [facility] Quality Check Yes [facility] Vital Signs Date Time Vital Sign Value Performing Clinician Facility 10-31-2024 12:03-0400 Body height 162.6 cm David Donenlly PA-C Work Phone: [facility] 10-31-2024 12:03-0400 Body mass index (BMI) [Ratio] 29.59 kg/m2 David JACKSONC Work Phone: [facility] 10-31-2024 12:03-0400 Body temperature 98.29 [degF] David Slabaugh PA-C Work Phone: [facility] 10-31-2024 12:03-0400 Body weight 78.2 kg David Slabaugh PA-C Work Phone: [facility] 10-31-2024 12:03-0400 Diastolic blood pressure 83 mm[Hg] David Slabaugh PA-C Work Phone: [facility] 10-31-2024 12:03-0400 Heart rate 104 /min David Slabaugh PA-C Work Phone: [facility] 10-31-2024 12:03-0400 Respiratory rate 18 /min David Slabaugh PA-C Work Phone: [facility] 10-31-2024 12:03-0400 SaO2% (BldA) [Mass fraction] 98 % David Slabaugh PA-C Work Phone: [facility] 10-31-2024 12:03-0400 Systolic blood pressure 127 mm[Hg] David Slabaugh PA-C Work Phone: [facility] 10-11-2024 10:190400 Body height 162.56 cm Joaquina Bridenthal CUT OFF SAWYER-C Work Phone: [facility] 10-11-2024 10:19-0400 Body mass index (BMI) [Ratio] 28.7 kg/m2 Joaquina Bridenthal [employer]C Work Phone: [facility] 10-11-2024 10:190400 Body weight 75.86 kg Joaquina Bridenthal [employer]C Work Phone: [facility] 10-11-2024 10:19-0400 Diastolic blood pressure 95 mm[Hg] Joaquina Bridenthal [employer]C Work Phone: [facility] 10-11-2024 10:19-0400 Systolic blood pressure 116 mm[Hg] Joaquina Bridenthal C[employer]C Work Phone: [facility] 10-02-2024 13:58-0400 Body temperature 97.8 [degF] Joaquina Bridenthal [employer]C Work Phone: [facility] 10-02-2024 13:58-0400 Diastolic blood pressure 78 mm[Hg] Joaquina Bridenthal [employer] Work Phone: [facility] 10-02-2024 13:58-0400 Heart rate 81 /min Joaquina Bridenthal [employer]C Work Phone: [facility] 10-02-2024 13:58-0400 Respiratory rate 17 /min Joaquina Bridenthal C[employer]C Work Phone: [facility] 10-02-2024 13:58-0400 SaO2% (BldA) [Mass fraction] 100 % Joaquina Bridenthal [employer]C Work Phone: [facility] 10-02-2024 13:58-0400 Systolic blood pressure 121 mm[Hg] Joaquina Bridenthal C[employer]C Work Phone: [facility] 10-02-2024 10:57-0400 Body height 162.56 cm Joaquina Bridenthal [employer]C Work Phone: [facility] 10-02-2024 10:57-0400 Body mass index (BMI) [Ratio] 29.3 kg/m2 Joaquina Bridenthal [employer]C Work Phone: [facility] 10-02-2024 10:57-0400 Body weight 77.6 kg Joaquina Bridenthal [employer]C Work Phone: [facility] 09-11-2024 10:00-0400 Body height 162.56 cm Joaquina Bridenthal [employer]C Work Phone: [facility] 09-11-2024 10:00-0400 Body mass index (BMI) [Ratio] 29 kg/m2 Joaquina Bridenthal [employer]C Work Phone: [facility] 09-11-2024 10:00-0400 Body weight 76.77 kg Joaquina Bridenthal [employer]C Work Phone: [facility] 09-11-2024 10:00-0400 Diastolic blood pressure 83 mm[Hg] Joaquina Bridenthal C[employer]C Work Phone: [facility] 09-11-2024 10:00-0400 Systolic blood pressure 130 mm[Hg] Joaquina Bridenthal [employer] Work Phone: [facility] 07-13-2024 10:42-0400 Body mass index (BMI) [Ratio] 27.3 kg/m2 Joaquina Bridenthal [employer] Work Phone: [facility] 07-13-2024 10:42-0400 Body weight 72.12 kg Joaquina Bridenthal [employer]C Work Phone: [facility] 07-13-2024 10:42-0400 Diastolic blood pressure 92 mm[Hg] Joaquina Bridenthal C[employer]C Work Phone: [facility] 07-13-2024 10:42-0400 Systolic blood pressure 138 mm[Hg] Joaquina Bridenthal C[employer]C Work Phone: [facility] 06-29-2024 15:45-0500 Body temperature 97.8 [degF] Joaquina Bridenthal [employer]C Work Phone: [facility] 06-29-2024 15:45-0500 Diastolic blood pressure 63 mm[Hg] Joaquina Bridenthal C[employer]C Work Phone: [facility] 06-29-2024 15:45-0500 Heart rate 63 /min Joaquina Bridenthal [employer]C Work Phone: [facility] 06-29-2024 15:45-0500 Respiratory rate 16 /min Joaquina Bridenthal [employer] Work Phone: [facility] 06-29-2024 15:45-0500 SaO2% (BldA) [Mass fraction] 99 % Joaquina Bridenthal [employer]C Work Phone: [facility] 06-29-2024 15:45-0500 Systolic blood pressure 102 mm[Hg] Joaquina Bridenthal C[employer]C Work Phone: [facility] 06-29-2024 12:02-0500 Body height 162.56 cm Joaquina Bridenthal [employer] Work Phone: [facility] 06-29-2024 12:02-0500 Body mass index (BMI) [Ratio] 28 kg/m2 Joaquina Bridenthal [employer] Work Phone: [facility] 06-29-2024 12:02-0500 Body weight 74 kg Joaquina Bridenthal [employer] Work Phone: [facility] 06-25-2024 13:01-0500 Body mass index (BMI) [Ratio] 28.3 kg/m2 Joaquina Bridenthal [employer]C Work Phone: [facility] 06-25-2024 13:01-0500 Body weight 74.84 kg Joaquina Bridenthal [employer]C Work Phone: [facility] 06-25-2024 13:01-0500 Diastolic blood pressure 70 mm[Hg] Joaquina Bridenthal C[employer]C Work Phone: [facility] 06-25-2024 13:01-0500 Systolic blood pressure 106 mm[Hg] Joaquina Bridenthal C[employer]C Work Phone: [facility] 06-21-2024 10:50-0500 Body mass index (BMI) [Ratio] 28.8 kg/m2 Joaquina Bridenthal [employer]C Work Phone: [facility] 06-21-2024 10:50-0500 Body weight 76.31 kg Joaquina Bridenthal [employer]C Work Phone: [facility] 06-21-2024 10:50-0500 Diastolic blood pressure 77 mm[Hg] Joaquina Bridenthal C[employer] Work Phone: [facility] 06-21-2024 10:50-0500 Systolic blood pressure 124 mm[Hg] Joaquina Bridenthal C[employer]C Work Phone: [facility] 03-26-2024 14:45-0500 Body height 161.3 cm Tia Mandela DISH CARRIER-PUBLIC HEALTH SANITARIAN TECHNICIAN Work Phone: [phone] [place] [address] 03-26-2024 14:45-0500 Body mass index (BMI) [Ratio] 28.42 kg/m2 Tia Mandela DISH CARRIER-PUBLIC HEALTH SANITARIAN TECHNICIAN Work Phone: 3([phone] [place] [address] 03-26-2024 14:45-0500 Body temperature 98.91 [degF] Tia Mandela DISH CARRIER-PUBLIC HEALTH SANITARIAN TECHNICIAN Work Phone: [phone] [place] [address] 03-26-2024 14:45-0500 Body weight 73.94 kg Tia Mandela DISH CARRIER-PUBLIC HEALTH SANITARIAN TECHNICIAN Work Phone: [facility] 03-26-2024 14:45-0500 Diastolic blood pressure 74 mm[Hg] Tia Mandela DISH CARRIER-PUBLIC HEALTH SANITARIAN TECHNICIAN Work Phone: 3(327)[phone] [place] [address] 03-26-2024 14:45-0500 Heart rate 90 /min Tia Mandela DISH CARRIER-PUBLIC HEALTH SANITARIAN TECHNICIAN Work Phone: [phone])[phone] [place] [address] 03-26-2024 14:45-0500 Respiratory rate 20 /min Tia Mandela DISH CARRIER-PUBLIC HEALTH SANITARIAN TECHNICIAN Work Phone: 0(012)[phone] [place] [address] 03-26-2024 14:45-0500 SaO2% (BldA) [Mass fraction] 98 % Tia Mandela DISH CARRIER-PUBLIC HEALTH SANITARIAN TECHNICIAN Work Phone: [phone] [place] [address] 03-26-2024 14:45-0500 Systolic blood pressure 125 mm[Hg] Tia Mandela DISH CARRIER-PUBLIC HEALTH SANITARIAN TECHNICIAN Work Phone: [facility] 09-15-2023 13:07-0400 Body mass index (BMI) [Ratio] 27.74 kg/m2 Joaquina Bridenthal DISH CARRIER - PUBLIC HEALTH SANITARIAN TECHNICIAN Work Phone: [facility] [email or web address] 09-15-2023 13:07-0400 Body temperature 98.4 [degF] Joaquina Bridenthal DISH CARRIER - PUBLIC HEALTH SANITARIAN TECHNICIAN Work Phone: [facility] 09-15-2023 13:07-0400 Body weight 73.3 kg Joaquina Bridenthal DISH CARRIER - PUBLIC HEALTH SANITARIAN TECHNICIAN Work Phone: [facility] 09-15-2023 13:07-0400 Diastolic blood pressure 85 mm[Hg] Joaquina Bridenthal DISH CARRIER - PUBLIC HEALTH SANITARIAN TECHNICIAN Work Phone: [facility] 09-15-2023 13:07-0400 Heart rate 102 /min Joaquina Bridenthal DISH CARRIER - PUBLIC HEALTH SANITARIAN TECHNICIAN Work Phone: [facility] 09-15-2023 13:07-0400 Respiratory rate 18 /min Joaquina Bridenthal DISH CARRIER - PUBLIC HEALTH SANITARIAN TECHNICIAN Work Phone: [facility] 09-15-2023 13:07-0400 SaO2% (BldA) [Mass fraction] 97 % Joaquina Bridenthal DISH CARRIER - PUBLIC HEALTH SANITARIAN TECHNICIAN Work Phone: [facility] 09-15-2023 13:07-0400 Systolic blood pressure 129 mm[Hg] Joaquina Bridenthal DISH CARRIER - PUBLIC HEALTH SANITARIAN TECHNICIAN Work Phone: [facility] 07-14-2023 07:36-0400 Body weight 75.75 kg Nancy Ordoñez APRN.PUBLIC HEALTH SANITARIAN TECHNICIAN Work Phone: [facility] 07-14-2023 07:36-0400 Diastolic blood pressure 82 mm[Hg] Nancy Ordoñez APRN.PUBLIC HEALTH SANITARIAN TECHNICIAN Work Phone: [facility] 07-14-2023 07:36-0400 Heart rate 80 /min Nancy Ordoñez APRN.PUBLIC HEALTH SANITARIAN TECHNICIAN Work Phone: [facility] 07-14-2023 07:36-0400 SaO2% (BldA) [Mass fraction] 98 % Nancy Ordoñez APRN.PUBLIC HEALTH SANITARIAN TECHNICIAN Work Phone: [facility] 07-14-2023 07:36-0400 Systolic blood pressure 126 mm[Hg] Nancy Ordoñez APRN.PUBLIC HEALTH SANITARIAN TECHNICIAN Work Phone: [facility] 06-16-2023 06:59-0500 Body weight 76.66 kg Nancy Ordoñez APRN.PUBLIC HEALTH SANITARIAN TECHNICIAN Work Phone: [facility] 06-16-2023 06:59-0500 Diastolic blood pressure 84 mm[Hg] Nancy Ordoñez APRN.PUBLIC HEALTH SANITARIAN TECHNICIAN Work Phone: [facility] 06-16-2023 06:59-0500 Systolic blood pressure 116 mm[Hg] Nancy Ordoñez APRN.PUBLIC HEALTH SANITARIAN TECHNICIAN Work Phone: [facility] 06-15-2023 07:35-0500 Body mass index (BMI) [Ratio] 29.21 kg/m2 Joaquina Bridenthal DISH CARRIER - PUBLIC HEALTH SANITARIAN TECHNICIAN Work Phone: [facility] [email or web address] 06-15-2023 07:35-0500 Body temperature 98.6 [degF] Joaquina Bridenthal DISH CARRIER - PUBLIC HEALTH SANITARIAN TECHNICIAN Work Phone: [facility] [email or web address] 06-15-2023 07:35-0500 Body weight 77.2 kg Joaquina Bridenthal DISH CARRIER - PUBLIC HEALTH SANITARIAN TECHNICIAN Work Phone: [facility] [email or web address] 06-15-2023 07:35-0500 Diastolic blood pressure 69 mm[Hg] Joaquina Bridenthal DISH CARRIER - PUBLIC HEALTH SANITARIAN TECHNICIAN Work Phone: [facility] [email or web address] 06-15-2023 07:35-0500 Heart rate 94 /min Joaquina Bridenthal DISH CARRIER - PUBLIC HEALTH SANITARIAN TECHNICIAN Work Phone: [facility] [email or web address] 06-15-2023 07:35-0500 Respiratory rate 18 /min Joaquina Bridenthal DISH CARRIER - PUBLIC HEALTH SANITARIAN TECHNICIAN Work Phone: [facility] [email or web address] 06-15-2023 07:35-0500 SaO2% (BldA) [Mass fraction] 98 % Joaquina Bridenthal DISH CARRIER - PUBLIC HEALTH SANITARIAN TECHNICIAN Work Phone: [facility] [email or web address] 06-15-2023 07:35-0500 Systolic blood pressure 112 mm[Hg] Joaquina Bridenthal DISH CARRIER - PUBLIC HEALTH SANITARIAN TECHNICIAN Work Phone: [facility] [email or web address] 05-16-2023 13:46-0500 Body mass index (BMI) [Ratio] 28.15 kg/m2 Joaquina Bridenthal DISH CARRIER - PUBLIC HEALTH SANITARIAN TECHNICIAN Work Phone: [email or web address] 05-16-2023 13:46-0500 Body temperature 98.1 [degF] Joaquina Bridenthal DISH CARRIER - PUBLIC HEALTH SANITARIAN TECHNICIAN Work Phone: [email or web address] 05-16-2023 13:46-0500 Body weight 74.39 kg Joaquina Bridenthal DISH CARRIER - PUBLIC HEALTH SANITARIAN TECHNICIAN Work Phone: [facility] [email or web address] 05-16-2023 13:46-0500 Diastolic blood pressure 89 mm[Hg] Joaquina Bridenthal DISH CARRIER - PUBLIC HEALTH SANITARIAN TECHNICIAN Work Phone: [email or web address] 05-16-2023 13:46-0500 Heart rate 98 /min Joaquina Bridenthal DISH CARRIER - PUBLIC HEALTH SANITARIAN TECHNICIAN Work Phone: [email or web address] 05-16-2023 13:46-0500 Respiratory rate 18 /min Joaquina Bridenthal DISH CARRIER - PUBLIC HEALTH SANITARIAN TECHNICIAN Work Phone: [facility] [email or web address] 05-16-2023 13:46-0500 SaO2% (BldA) [Mass fraction] 97 % Joaquina Bridenthal DISH CARRIER - PUBLIC HEALTH SANITARIAN TECHNICIAN Work Phone: [email or web address] 05-16-2023 13:46-0500 Systolic blood pressure 133 mm[Hg] Joaquina Bridenthal DISH CARRIER - PUBLIC HEALTH SANITARIAN TECHNICIAN Work Phone: [facility] [email or web address] 03-23-2023 09:29-0500 Body mass index (BMI) [Ratio] 25.92 kg/m2 Joaquina Bridenthal DISH CARRIER - PUBLIC HEALTH SANITARIAN TECHNICIAN Work Phone: [facility] [email or web address] 03-23-2023 09:29-0500 Body temperature 97.59 [degF] Joaquina Bridenthal DISH CARRIER - PUBLIC HEALTH SANITARIAN TECHNICIAN Work Phone: [facility] [email or web address] 03-23-2023 09:29-0500 Body weight 68.49 kg Joaquina Bridenthal DISH CARRIER - PUBLIC HEALTH SANITARIAN TECHNICIAN Work Phone: [facility] [email or web address] 03-23-2023 09:29-0500 Diastolic blood pressure 77 mm[Hg] Joaquina Bridenthal DISH CARRIER - PUBLIC HEALTH SANITARIAN TECHNICIAN Work Phone: [facility] [email or web address] 03-23-2023 09:29-0500 Heart rate 98 /min Joaquina Bridenthal DISH CARRIER - PUBLIC HEALTH SANITARIAN TECHNICIAN Work Phone: [facility] [email or web address] 03-23-2023 09:29-0500 Respiratory rate 18 /min Joaquina Bridenthal DISH CARRIER - PUBLIC HEALTH SANITARIAN TECHNICIAN Work Phone: [facility] [email or web address] 03-23-2023 09:29-0500 SaO2% (BldA) [Mass fraction] 99 % Joaquina Bridenthal DISH CARRIER - PUBLIC HEALTH SANITARIAN TECHNICIAN Work Phone: [facility] [email or web address] 03-23-2023 09:29-0500 Systolic blood pressure 116 mm[Hg] Joaquina Bridenthal DISH CARRIER - PUBLIC HEALTH SANITARIAN TECHNICIAN Work Phone: [facility] 11-29-2022 14:12-0400 Body height 162.6 cm Divya Muniz MD Work Phone: [facility] 11-29-2022 14:12-0400 Body weight 67.59 kg Divya Muniz MD Work Phone: [facility] 11-29-2022 14:12-0400 Diastolic blood pressure 68 mm[Hg] Divya Muniz MD Work Phone: [facility] 11-29-2022 14:12-0400 Systolic blood pressure 118 mm[Hg] Divya Muniz MD Work Phone: [facility] 10-20-2021 07:24-0400 Body height 163 cm Niharika Lee MD Work Phone: [facility] 10-20-2021 07:24-0400 Body weight 67.59 kg Niharika Lee MD Work Phone: [facility] 10-20-2021 07:24-0400 Diastolic blood pressure 64 mm[Hg] Niharika Lee MD Work Phone: [facility] 10-20-2021 07:24-0400 Systolic blood pressure 104 mm[Hg] Niharika Lee MD Work Phone: [facility] Encounters Encounter Date Encounter Type Care Provider Facility Start: 10-31-2024 End: 10-31-2024 Patient encounter procedure David Donnelly PA-C Work Phone: [facility] Comment on above: Contact dermatitis, unspecified contact dermatitis type, unspecified trigger (Primary Dx) Start: 10-31-2024 End: 10-31-2024 ambulatory JOAQUINA FUNMILAYO NULLENTHAL Facility:[facility] Start: 10-11-2024 End: 10-11-2024 Patient encounter procedure Kristina Cruz NP-C -[facility] Work Phone: Start: 10-11-2024 End: 10-11-2024 ambulatory Joaquina Tennilleenthal CUT OFF SAWYER-C Work Phone: [facility] Work Phone: Start: 10-02-2024 End: 10-02-2024 Emergency department patient visit Joaquina Tennilleenthal CUT OFF SAWYER-C Work Phone: -Emergency Department Work Phone: Start: 09-11-2024 End: 09-11-[address] Isaura Song DO -[facility] Work Phone: Start: 09-11-2024 End: 09-11-2024 ambulatory Joaquina Tennilleenthal CUT OFF SAWYER-C Work Phone: [facility] Work Phone: Start: 07-13-2024 End: 07-13-[address] Fadumo Barreto MD -[facility] Work Phone: Start: 07-13-2024 End: 07-13-2024 ambulatory Joaquina Bridenthal Facility:[facility] Start: 07-12-2024 Encounter for other preprocedural examination Fadumo Barreto [facility] Start: 06-29-2024 ambulatory Joaquina Bridenthal Faci lity:[facility] Start: 06-29-2024 Non-patient / Non-visit Dr. Poonam Barreto MD -[facility] Start: 06-29-2024 End: 06-29-2024 Admission to same day surgery center Dr. Fadumo Barreto MD [facility] Start: 06-29-2024 End: 06-29-2024 ambulatory Joaquina Bridenthal CUT OFF SAWYER-C Work Phone: [facility] Work Phone: Start: 06-28-2024 End: 06-28-2024 ambulatory Joaquina Bridenthal CUT OFF SAWYER-C Work Phone: [facility] Work Phone: Start: 06-28-2024 End: 06-28-2024 Patient encounter procedure Nikole Chang CNM -[facility] Work Phone: Start: 06-28-2024 End: 06-28-2024 ambulatory Joaquina Bridenthal Facility:[facility] Start: 06-25-2024 End: 06-25-[address] Isaura Song DO -[facility] Work Phone: Start: 06-25-2024 End: 06-25-2024 ambulatory Isaura Song Facility:[facility] Start: 06-25-2024 End: 06-25-2024 ambulatory Joaquina Bridenthal CUT OFF SAWYER-C Work Phone: [facility] Work Phone: Start: 06-25-2024 End: 06-25-[address] Isaura Song DO -Laboratory Work Phone: Start: 06-25-2024 End: 06-25-2024 ambulatory Joaquina Bridenthal Facility:[facility] Start: 06-23-2024 End: 06-23-2024 ambulatory Joaquina Bridenthal CUT OFF SAWYER-C Work Phone: [facility] Work Phone: Start: 06-23-2024 End: 06-23-2024 Patient encounter procedure Nikole RAHMANM -Laboratory Work Phone: Start: 06-23-2024 End: 06-23-2024 ambulatory Joaquina Bridenthal Facility:[facility] Start: 06-21-2024 End: 06-21-2024 ambulatory Joaquina Bridenthal CUT OFF SAWYER-C Work Phone: [facility] Work Phone: Start: 06-21-2024 End: 06-21-2024 Patient encounter procedure Nikole Chang CNM -[facility] Start: 06-21-2024 End: 06-21-2024 Patient encounter procedure Nikole Chang CNM -[facility] Work Phone: Start: 06-21-2024 End: 06-21-2024 ambulatory Joaquina Osminal Facility:[facility] Start: 06-21-2024 End: 06-21-2024 ambulatory Joaquina Tennilleenthal Facility:[facility] Start: 05-19-2024 End: 05-19-[address] Isaura Song DO -Laboratory Work Phone: Start: 05-19-2024 End: 05-19-2024 ambulatory Isaura Song Facility:[facility] Start: 05-17-2024 End: 05-17-[address] Isaura Song DO -Laboratory Work Phone: Start: 05-17-2024 End: 05-17-2024 ambulatory Isaura Song Facility:[facility] Start: 05-08-2024 End: 05-08-2024 Patient encounter procedure Samanta Jaramillo CUT OFF SAWYER-C -Laboratory Work Phone: Start: 05-08-2024 End: 05-08-2024 ambulatory Samanta Jaramillo CUT OFF SAWYER Facility:[facility] Start: 03-26-2024 End: 03-26-2024 Office outpatient new 45 minutes Celeste Hawkins APRN-PUBLIC HEALTH SANITARIAN TECHNICIAN Work Phone: [facility] Comment on above: Contact dermatitis, unspecified contact dermatitis type, unspecified trigger (Primary Dx) Start: 03-25-2024 End: 03-25-2024 Patient encounter procedure Samanta Jaramillo CUT OFF SAWYER-C -Laboratory Work Phone: Start: 03-25-2024 End: 03-25-2024 ambulatory [facility] Facility:[facility] Start: 03-07-2024 End: 03-07-2024 Patient encounter procedure Samanta Jaramillo CUT OFF SAWYER-C -Laboratory Work Phone: Start: 03-07-2024 End: 03-07-2024 [facility] Start: 02-23-2024 End: 02-23-2024 ambulatory Joaquina Bridenthal Facility:[facility] Start: 02-23-2024 End: 02-23-2024 ambulatory [facility] Facility:[facility] Start: 02-21-2024 End: 02-21-2024 ambulatory [facility] Facility:[facility] Start: 02-16-2024 End: 02-16-2024 ambulatory No Primary Care Physician Facility:[facility] Start: 02-15-2024 End: 02-15-2024 ambulatory [facility] Facility:[facility] Start: 02-13-2024 Encounter for gynecological examination (general) (routine) without abnormal findings [facility] Start: 02-13-2024 End: 02-13-2024 ambulatory [facility] Facility:[facility] Start: 02-13-2024 End: 02-13-2024 ambulatory [facility] Facility:[facility] Start: 09-15-2023 End: 09-15-2023 Office outpatient visit 15 minutes Joaquina Tennilleenthal DISH CARRIER - PUBLIC HEALTH SANITARIAN TECHNICIAN Work Phone: [facility] Comment on above: Anxiety and depressi on (Primary Dx); Skin sensation disturbance Start: 09-15-2023 End: 09-15-2023 [facility] Start: 07-14-2023 End: 07-14-2023 Patient encounter procedure Nancy Ordoñez APRN.PUBLIC HEALTH SANITARIAN TECHNICIAN Work Phone: OB/Gynecology Comment on above: PCOS (polycystic ova kenneth syndrome) (Primary Dx); Irregular menses; Anxiety and depression; History of bulimia; History of anorexia nervosa; Provided repeat prescription for oral contraceptive; Overweight with body mass index (BMI) of 29 to 29.9 in adult Start: 06-16-2023 End: 06-16-2023 Patient encounter procedure Nancy Ordoñez APRN.PUBLIC HEALTH SANITARIAN TECHNICIAN Work Phone: OB/Gynecology Comment on above: PCOS (polycystic ova kenneth syndrome) (Primary Dx); Elevated LDL cholesterol level; IFG (impaired fasting glucose); Irregular menses; Anxiety and depression; History of bulimia; History of anorexia nervosa; Overweight with body mass index (BMI) of 29 to 29.9 in adult Start: 06-15-2023 End: 06-15-2023 Office outpatient visit 15 minutes Joaquina Bridenthal DISH CARRIER - PUBLIC HEALTH SANITARIAN TECHNICIAN Work Phone: [facility] Comment on above: Anxiety and depressi on (Primary Dx); PCOS (polycystic ovarian syndrome) Start: 06-15-2023 End: 06-15-2023 Office outpatient visit 25 minutes Joaquina Bridenthal DISH CARRIER - PUBLIC HEALTH SANITARIAN TECHNICIAN Work Phone: [facility] Comment on above: Anxiety and depressi on (Primary Dx); PCOS (polycystic ovarian syndrome) Start: 06-15-2023 End: 06-15-2023 ambulatory [facility] Start: 05-16-2023 End: 05-16-2023 Office outpatient visit 15 minutes Joaquina Bridenthal DISH CARRIER - PUBLIC HEALTH SANITARIAN TECHNICIAN Work Phone: [facility] Comment on above: Anxiety and depressi on (Primary Dx); Weight gain Start: 05-16-2023 End: 05-16-2023 Office outpatient visit 25 minutes Joaquina Morales DISH CARRIER - PUBLIC HEALTH SANITARIAN TECHNICIAN Work Phone: [facility] Comment on above: Anxiety and depressi on (Primary Dx); Weight gain Start: 05-16-2023 End: 05-16-2023 ambulatory [facility] Start: 03-23-2023 End: 03-23-2023 Patient encounter procedure Joaquina Morales DISH CARRIER - PUBLIC HEALTH SANITARIAN TECHNICIAN Work Phone: [facility] Work Phone: Start: 03-23-2023 End: 03-23-2023 Periodic preventive med est patient 18-39 yrs Joaquina Morales DISH CARRIER - PUBLIC HEALTH SANITARIAN TECHNICIAN Work Phone: [facility] Comment on above: Annual physical exam (Primary Dx); Screening for deficiency anemia; Screening for cholesterol level; Anxiety and depression Start: 03-23-2023 End: 03-23-2023 ambulatory [facility] Start: 03-23-2023 End: 03-23-2023 Encounter for general adult medical examination without abnormal findings [facility] Start: 03-08-2023 End: 03-08-2023 ambulatory [facility] Start: 11-29-2022 End: 11-29-2022 Patient encounter procedure Divya Muniz MD Work Phone: OB/Gynecology Comment on above: Encounter for gyneco logical examination (general) (routine) without abnormal findings (Primary Dx); PCOS (polycystic ovarian syndrome) Start: 11-29-2022 End: 11-29-2022 Patient encounter status Divya Muniz MD Work Phone: [facility] Start: 09-27-2022 Refill Rama palomo APRN.CNM Work [...] with patient Niharika Lee MD Work Phone: [facility] Start: 03-22-2022 Telephone encounter Niharika allen MD Work Phone: OB/Gynecology Comment on above: Patient Question Start: 03-19-2022 Telephone encounter Niharika allen MD Work Phone: OB/Gynecology Comment on above: Patient Question Start: 10-28-2021 ambulatory Divya Muniz MD Work Phone: [facility] Start: 10-28-2021 Manual pelvic examination Deid rei Muniz MD Work Phone: OB/Gynecology Comment on above: Question regarding P ELVIC US WHI Start: 10-23-2021 End: 10-23-2021 ambulatory Divya Muniz MD Work Phone: OB/Gynecology Comment on above: 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 Start: 10-23-2021 End: 10-23-2021 Patient encounter procedure Divya Muniz MD Work Phone: [facility] Start: 10-20-2021 End: 10-20-2021 Patient encounter procedure Niharika Lee MD Work Phone: OB/Gynecology Comment on above: Encounter for gyneco logical examination without abnormal finding (Primary Dx); Encounter for screening for malignant neoplasm of cervix; Irregular intermenstrual bleeding Start: 10-20-2021 End: 10-20-2021 Patient encounter status Niharika Lee MD Work Phone: OB/Gynecology Procedures Date Procedure Procedure Detail Performing Clinician Start: 10-02-2024 Transvaginal echography Joaquina Bridenthal CUT OFF SAWYER-C Work Phone: Start: 06-29-2024 Dilation and curetta ge of uterus Joaquina Bridenthal CUT OFF SAWYER-C Work Phone: Start: 06-28-2024 Transvaginal obstetr ic ultrasonography Joaquina Bridenthal CUT OFF SAWYER-C Work Phone: Start: 06-21-2024 Urine culture Joaquina B ridenthal CUT OFF SAWYER-C Work Phone: Start: 03-23-2023 Lipid 1996 panel - S yin or Plasma Joaquina Bridenthal DISH CARRIER - PUBLIC HEALTH SANITARIAN TECHNICIAN Work Phone: Start: 10-20-2021 Urine test visual color cmprsn meths Niharika Lee MD Work Phone: Start: 10-20-2021 Microscopic observat ion [Identifier] in Cervix by Cyto stain Joaquina Bridenthal DISH CARRIER - PUBLIC HEALTH SANITARIAN TECHNICIAN Work Phone: Start: 06-15-2016 Adult depression scr eening assessment Niharika Lee MD Work Phone: Plan of Treatment Date Care Activity Detail Author Start: 2057 RSV Immunization age d 60 or older (1 - 1-dose 60+ series) RSV Immunization aged 60 or older (1 - 1-dose 60+ series) [facility] [email or web address] Start: 07-07-2047 Zoster Vaccines (1 o f 2) Zoster Vaccines (1 of 2) [facility] Start: 03-23-2028 Lipid panel Lipid Panel [facility] Start: 12-24-2024 Influenza vaccination Influenza Vacc ine (#1) [facility] Start: 10-20-2024 PAP TESTING PAP TESTING [facility] Start: 10-20-2024 Screening for malign ant neoplasm of cervix [facility] Start: 10-02-2024 [facility] Start: 06-29-2024 Ambulation without limitation [facility] Start: 06-29-2024 Medical regimen orde rs management [facility] Start: 06-29-2024 Medication education [facility] Start: 06-29-2024 Patient discharge [facility] Start: 06-29-2024 Procedure discontinued [facility] Start: 06-29-2024 Taking patient vital signs [facility] Start: 06-29-2024 Vital signs measurements [facility] Start: 06-29-2024 [facility] Start: 06-29-2024 Anesthesia incomplete/missed ANES INCOMPL/MISSED AB PX [facility] Start: 06-29-2024 Tx incomplete aborti on any trimester surgical TREATMENT OF MISCARRIAGE [facility] Start: 03-23-2024 COVID-19 Vaccine (#1) COVID-19 Vacci ne (#1) [facility] Comment on above: Postponed from 01/06 (Patient Refused) Start: 03-23-2024 COVID-19 Vaccine ( season) COVID-19 Vaccine ( season) [facility] Comment on above: Postponed from 12/24 (Patient Refused) Start: 03-23-2024 DTaP/Tdap/Td Vaccine s (7 - Td or Tdap) DTaP/Tdap/Td Vaccines (7 - Td or Tdap) [facility] Comment on above: Postponed from 11/17 (Patient Refused) Start: 03-23-2024 Hepatitis C screening Hepatitis C Sc rush [facility] Comment on above: Postponed from 07/06 (Patient Refused) Start: 03-23-2024 HIV screening HIV Screening [facility] Comment on above: Postponed from 07/06 (Patient Refused) Start: 03-13-2024 End: 03-13-2024 Patient encounter procedure 03/13/2024 7:40 AM EST Office Visit [facility] [address] [place] [address] [place] [address] Joaquina Morales DISH CARRIER - PUBLIC HEALTH SANITARIAN TECHNICIAN [address] [place] [address] [place] [address] [facility] Start: 12-25-2023 Covid-19 Vaccine ( season) Covid-19 Vaccine ( season) [facility] Start: 12-25-2023 Influenza vaccination Influenz a Vaccine (Season Ended) [facility] Start: 10-23-2023 Influenza vaccination Influenza Vacc ine (#1) [facility] Comment on above: Postponed from 12/24 (Patient Refused) Start: 09-21-2023 Depression Monitoring Depression Mon itoring [facility] Start: 09-21-2023 Depresssion Monitoring Depresssion M onitoring [facility] Start: 09-14-2023 End: 09-14-2023 Patient encounter procedure 09/14/2023 1:00 PM EDT Office Visit [facility] [address] [place] [address] [place] [address] Joaquina Morales, DISH CARRIER - PUBLIC HEALTH SANITARIAN TECHNICIAN [address] [place] [address] [place] [address] [facility] Start: 06-20-2023 End: 06-20-2023 Patient encounter procedure 06/20/2023 2:00 PM EST Office Visit [facility] [address] [place] [address] [place] [address] Joaquina Morales, DISH CARRIER - PUBLIC HEALTH SANITARIAN TECHNICIAN [address] [place] [address] [place] [address] [facility] Start: 06-15-2023 End: 06-15-2023 Patient encounter procedure 06/15/2023 7:40 AM EST Office Visit [facility] [address] [place] [address] [place] [address] Joaquina Morales, DISH CARRIER - PUBLIC HEALTH SANITARIAN TECHNICIAN [address] [facility] [place] [address] [facility] Start: 04-25-2023 Depression Assessment Depression Ass [facility] Start: 03-23-2023 End: 03-23-2024 CBC panel - Blood by Automated count CBC Lab Routine Screening for deficiency anemia Annual physical exam Expected: 03/23/2023 (Approximate), Expires: 03/23/2024 [facility] Comment on above: Expected: 03/23/2023 (Approximate), Expires: 03/23/2024 Start: 03-23-2023 End: 03-23-2024 Comprehensive metabolic 1998 panel - Serum or Plasma Comprehensive metabolic panel Lab Routine Annual physical exam Expected: 03/23/2023 (Approximate), Expires: 03/23/2024 [facility] Work Phone: Comment on above: Expected: 03/23/2023 (Approximate), Expires: 03/23/2024 Start: 03-23-2023 End: 03-23-2024 Lipid 1996 panel - Serum or Plasma Lipid panel Lab Routine Screening for cholesterol level Annual physical exam Expected: 03/23/2023 (Approximate), Expires: 03/23/2024 [facility] Comment on above: Expected: 03/23/2023 (Approximate), Expires: 03/23/2024 Start: 12-24-2022 Covid-19 Vaccine ( season) Covid-19 Vaccine ( season) [facility] Start: 12-24-2022 Influenza vaccination C [facility] Start: 05-20-2022 End: 07-20-2022 Progesterone [Mass/volume] in Serum or Plasma PROGESTERONE BLD Lab Routine Anovulation Expected: 05/20/2022, Expires: 07/20/2022 [facility] Work Phone: Comment on above: Expected: 05/20/2022 , Expires: 07/20/2022 Start: 04-25-2022 DEPRESSION ASSESSMENT DEPRESSION ASS ESSMENT [facility] Start: 04-10-2022 PAP TESTING PAP TESTING [facility] Start: 03-19-2022 End: 05-19-2022 Choriogonadotropin.beta subunit [Units/volume] in Serum or Plasma HCG QUANTITATIVE Lab Routine Missed menses Expected: 03/19/2022, Expires: 05/19/2022 [facility] Work Phone: Comment on above: Expected: 03/19/2022 , Expires: 05/19/2022 Start: 12-24-2021 Influenza vaccination [facility] Start: 10-20-2021 End: 12-20-2021 Thyrotropin [Units/volume] in Serum or Plasma [facility] Work Phone: Comment on above: Expected: 10/20/2021 , Expires: 12/20/2021 Start: 04-25-2021 DEPRESSION ASSESSMENT DEPRESSION ASS [facility] Start: 10-23-2020 COVID-19 VACCINE (2 - Booster for Randy series) COVID-19 VACCINE (2 - Booster for Randy series) [facility] Start: 11-18-2019 Urine microalbumin profile [facility] Start: 06-15-2017 Adult depression screening assessment DEPRESSION SCREENING [facility] Start: 07-07-2015 HEPATITIS C SCREENING HEPATITIS C [facility] Start: 07-07-2015 Hepatitis C screening Hepatitis C [facility] Start: 07-07-2015 HIV SCREENING HIV SCREENING [facility] Start: 07-07-2015 HIV screening HIV Screening [facility] Start: 07-07-2011 PEDS TO ADULT TRANSITION ANNUAL ASSESSMENT PEDS TO ADULT TRANSITION ANNUAL ASSESSMENT [facility] Start: 2009 PEDS TO ADULT TRANSITION INITIAL DISCUSSION PEDS TO ADULT TRANSITION INITIAL DISCUSSION [facility] Start: 07-07-2007 MENINGOCOCCAL B: Consider based on risk (1 of 2 - Risk Bexsero 2-dose series) MENINGOCOCCAL B: Consider based on risk (1 of 2 - Risk Bexsero 2-dose series) [facility] Start: 07-07-2003 Pneumococcal Vaccine : Pediatrics (0 to 5 Years) and At-Risk Patients (6 to 64 Years) (1 of 2 - PCV) Pneumococcal Vaccine: Pediatrics (0 to 5 Years) and At-Risk Patients (6 to 64 Years) (1 of 2 - PCV) [facility] Start: 1997 Lipid panel Lipid Panel [facility] PAP FLUID CERVICAL SCREENING PAP FLUID CERVICAL SCREENING Lab Routine Encounter for screening for malignant neoplasm of cervix 10/20/2021 8:07 AM EDT [facility] Work Phone: Patient Education ED Dysfunction al Uterine Bleeding [facility] Work Phone: Patient referral [facility] Work Phone: PELVIC US WHI PELVIC US WHI An c Imaging Routine Irregular intermenstrual bleeding Ordered: 10/20/2021 [facility] Work Phone: Comment on above: Ordered: 10/20/2021 Serum progesterone measurement [facility] c [facility] c [facility] c [facility] Immunizations Immunization Date Immunization Notes Care Provider Dave cabrera 08-28-2020 [facility] SARS-CoV-2 Vaccination Joaquina Morales DISH CARRIER - PUBLIC HEALTH SANITARIAN TECHNICIAN Work Phone: [facility] 06-15-2016 influenza, injectabl e, quadrivalent, contains preservative Niharika Lee MD Work Phone: [facility] 06-15-2016 influenza virus vacc ine, unspecified formulation Joaquina Nullidris DISH CARRIER - PUBLIC HEALTH SANITARIAN TECHNICIAN Work Phone: [facility] 11-09-2013 meningococcal polysaccharide (groups A, C, Y and W-135) diphtheria toxoid conjugate vaccine (MCV4P) Niharika Lee MD Work Phone: [facility] 04-16-2013 human papilloma viru s vaccine, quadrivalent Niharika Lee MD Work Phone: [facility] 12-27-2012 human papilloma viru s vaccine, quadrivalent Niharika Lee MD Work Phone: [facility] 11-18-2012 human papilloma viru s vaccine, quadrivalent Niharika Lee MD Work Phone: [facility] 11-17-2009 Meningococcal, MCV4, unspecified conjugate formulation(groups A, C, Y and W-135) Niharika Lee MD Work Phone: [facility] 11-17-2009 tetanus toxoid, redu liliam diphtheria toxoid, and acellular pertussis vaccine, adsorbed Niharika Lee MD Work Phone: [facility] 12-10-2008 varicella virus vaccine Hemal Lee MD Work Phone: [facility] 2004 poliovirus vaccine, inactivated Niharika Lee MD Work Phone: [facility] Work Phone: 10-20-2003 measles, mumps and rubella virus vaccine Niharika Lee MD Work Phone: [facility] Work Phone: 09-01-2003 diphtheria, tetanus toxoids and acellular pertussis vaccine Niharika Lee MD Work Phone: [facility] Work Phone: 12-25-1998 DTaP-Haemophilus influenzae type b conjugate vaccine Niharika Lee MD Work Phone: [facility] 12-25-1998 poliovirus vaccine, inactivated Niharika Lee MD Work Phone: [facility] 10-02-1998 varicella virus vaccine Hemal Lee MD Work Phone: [facility] 07-10-1998 measles, mumps and rubella virus vaccine Niharika Lee MD Work Phone: [facility] 03-18-1998 hepatitis B vaccine, pediatric or pediatric/adolescent dosage Niharika Lee MD Work Phone: [facility] 1997 DTaP-Haemophilus influenzae type b conjugate vaccine Niharika Lee MD Work Phone: [facility] 1997 poliovirus vaccine, inactivated Niharika Lee MD Work Phone: [facility] 1997 DTaP-Haemophilus influenzae type b conjugate vaccine Niharika Lee MD Work Phone: [facility] 1997 poliovirus vaccine, inactivated Niharika Lee MD Work Phone: [facility] 1997 DTaP-Haemophilus influenzae type b conjugate vaccine Niharika Lee MD Work Phone: [facility] 1997 hepatitis B vaccine, pediatric or pediatric/adolescent dosage Nihairka Lee MD Work Phone: [facility] 1997 poliovirus vaccine, inactivated Niharika Lee MD Work Phone: [facility] 1997 hepatitis B vaccine, pediatric or pediatric/adolescent dosage Niharika Lee MD Work Phone: [facility] Payers Date Payer Category Payer Self-pay 2022 [employer] [place] [facility] [id number] 2022 Blue Cross Blue [facility] [id number] 2022 Unknown [id number] 2022 Unknown [id number] 2021 Unknown MMO MMO SUPERMED PLUS [id number] 2021-Present [phone] [address] [place] [address] O [id number] .[id number] 2021 Unknown [id number] [id number] .[id number] Unknown [id number] 2.16.840.1.058969.3.579 .2.462 Unknown [id number] 2.16.840.1.091728.3.579 .2.462 Unknown [id number] 2.16.840.1.052797.3.579 .2.462 Unknown [id number] 2.16.840.1.568536.3.579 .2.462 Unknown [id number] 2.16.840.1.476703.3.579 .2.462 Unknown [id number] 2.16.840.1.488812.3.579 .2.462 Unknown [id number] 2.16.840.1.494681.3.579 .2.462 Unknown [id number] 2.16.840.1.881940.3.579 .2.462 Unknown [id number] 2.16.840.1.199925.3.579 .2.462 Unknown [id number] 2.16.840.1.823288.3.579 .2.462 Unknown [id number] 2.16.840.1.369811.3.579 .2.462 Unknown [id number] 2.16.840.1.442969.3.579 .2.462 Unknown [id number] 2.16.840.1.687833.3.579 .2.462 Unknown [id number] 2.16.840.1.842213.3.579 .2.462 Unknown [id number] 2.16.840.1.100672.3.579 .2.462 Unknown [id number] 2.16.840.1.732604.3.579 .2.462 Unknown [id number] 2.16.840.1.044853.3.579 .2.462 Unknown [id number] 2.16.840.1.888025.3.579 .2.462 Unknown [id number] 2.16.840.1.393207.3.579 .2.462 Unknown [id number] 2.16.840.1.443810.3.579 .2.462 Unknown [id number] 2.16.840.1.496743.3.579 .2.462 Unknown [id number] 2.16.840.1.828026.3.579 .2.462 Unknown [id number] 2.16.840.1.062100.3.579 .2.462 Unknown [id number] 2.16.840.1.906363.3.579 .2.462 Social History Date Type Detail Facility Start: 12-02-2021 End: 10-02-2024 Tobacco smoking status [facility] Never smoked tobacco [facility] Work Phone: Start: 10-20-2021 End: 07-14-2023 Alcohol intake Current drinker of alcohol (finding) [facility] Start: 09-07-2019 History SDOH Alcohol Frequency 3 [facility] Start: 09-07-2019 History SDOH Alcohol Std Drinks 1 [facility] Start: 09-07-2019 History SDOH Alcohol Binge 2 [facility] Start: 09-07-2019 History SDOH Social Connections Phone 5 [facility] Start: 09-07-2019 History SDOH Social Connections Living 7 [facility] Start: 09-07-2019 History SDOH Physica l Activity DPW 4 [facility] Start: 09-07-2019 History SDOH Physica l Activity MPS 6 [facility] Start: 09-07-2019 Education 14 [facility] Start: 1995 Sex Assigned At Female C [facility] Start: 10-10-2021 End: 03-20-2022 Exposure to SARS-CoV-2 (event) Not sure [facility] Start: 12-02-2021 End: 03-26-2024 Tobacco use and exposure Smokeless tobacco non-user [facility] Start: 09-07-2019 End: 11-29-2022 History of Social function [facility] Start: 09-07-2019 End: 11-29-2022 Social connection and isolation panel [facility] Do you belong to any clubs or organizations such as yarsanism groups, unions, fraternal or athletic groups, or school groups? Yes [facility] Are you now , , , , never or living with a partner? Never [facility] How often to you hav e a drink containing alcohol? 2-4 times a month [facility] How many standard dr inks containing alcohol do you have on a typical day? 1 or 2 [facility] How often do you hav e 6 or more drinks on 1 occasion? Less than monthly [facility] How hard is it for y ou to pay for the very basics like food, housing, medical care, and heating Not very hard [facility] Do you feel stress - tense, restless, nervous, or anxious, or unable to sleep at night because your mind is troubled all the time - these days [OSQ] Rather much [facility] (I/We) worried braxton er (my/our) food would run out before (I/we) got money to buy more. Never true [facility] In the past 12 month s, has lack of transportation kept you from medical appointments or from getting medications? No [facility] In the past 12 month s, was there a time when you were not able to pay the mortgage or rent on time? No [facility] Start: 10-16-2021 Gender identity Identifies as female gender (finding) [facility] Start: 10-16-2021 Sexual orientation Heterosexua l (finding) [facility] Start: 03-08-2023 Tobacco use and exposure User of smokeless tobacco [facility] History of tobacco use Chews Tobacco [facility] Start: 03-08-2023 Tobacco Comment Nicotine pouch, [facility] Start: 03-08-2023 [facility] Start: 03-26-2024 Alcoholic beverage intake Ex-drinker (finding) [facility] Work Phone: Start: 1995 Sex assigned at Not on file [facility] Work Phone: Start: 06-29-2024 End: 07-10-2024 Sex Female (finding) [facility] NEGATED: Highlighted row Not [facility] Goals Date Patient Goal Desired Activity /State Functional Status Date Assessment Result Facility 11-12-2014 Are you deaf, or do you have serious difficulty hearing No 11/12/2014 1:26 PM EDT Ines Lee MA No [facility] 11-12-2014 Are you blind, or do you have serious difficulty seeing, even when wearing glasses No 11/12/2014 1:26 PM Ines Chapa MA No [facility] 11-12-2014 Do you have serious difficulty walking or climbing stairs No 11/12/2014 1:26 PM [place] Ines Lee MA No [facility] 11-12-2014 Do you have difficul ty dressing or bathing No 11/12/2014 1:26 PM EDT Ines Lee MA [facility] 11-12-2014 Because of a physica l, mental, or emotional condition, do you have difficulty doing errands alone such as visiting a physician's office or shopping No 11/12/2014 1:26 PM EDT Ines Lee MA [facility] Mental Status Date Assessment Result Facility 06-29-2024 Cognitive function Voice/Name [facility] Work Phone: 11-12-2014 Because of a physica l, mental, or emotional condition, do you have serious difficulty concentrating, remembering, or making decisions No 11/12/2014 1:26 PM Ines Chapa MA No [facility] Clinical Notes 11-27-2012 to 10-31-2024 Patient InstructionsSDavid rubio PA-C - 10/31/2024 11:53 AM EDT Note Date & Type Note Facility 10-31-2024 Instructions David Donnelly PA-C - 10/31/2024 12:10 PM EDT ASSESSMENT/PLAN: 1. Contact dermatitis, unspecified contact dermatitis [...] unrelieved by Tylenol/Motrin- go to the ER. David Donnelly PA-C 11:53 AM 10/31/24 documented in this encounter [facility] 10-31-2024 Note HNO ID: [id number] Author: DAVID DONNELLY PA-C Service: ? Author Type: Physician Bow Tacker Type: Progress Notes Filed: 10/31/2024 13:10 Note Text: PATIENT NAME: David Conti DATE OF : 1995 TODAYS' DATE: 10/31/2024 [...] by mouth every morning. PNV/iron/folic acid ( [id number] ORAL) Take 1 tablet by mouth once [...] HENT: Head: Normocephalic and atraumatic. Mouth/Throat: Lips: Parsons. No lesions. Mouth: No oral lesions. Dentition: [...] Normal breath sounds and air entry. Lymphadenopathy: (more content not included)... [facility] 10-31-2024 History of Presen t illness Narrative Images from the original note were not included. PATIENT NAME: David Conti DATE OF : 1995 TODAYS' DATE: 10/31/2024 Surgical mask and gloves worn for all in-person care. SUBJECTIVE: Patient presents with: Rash: Rash on forearms/chin, left ankle, possible poison gwendolyn, has tried benadryl anti-itch lotion and extreme poison Gwendolyn & oak scrub, HPI per the patient. History [...] by mouth every morning. PNV/iron/folic acid ( [id number]-[id number]-JH ORAL) Take 1 tablet by mouth once [...] Size: Regular Adult) Pulse 104 Temp 36.8 C (98.3 F) (Left Tympanic) Resp 18 Ht 162.6 cm (5' 4) Wt 78.2 kg (172 lb 6.4 oz) LMP 04/26/2023 SpO2 98% BMI 29.59 kg/m Physical Exam: Physical Exam Vitals reviewed. Constitutional: General: She is not in acute distress. Appearance: Normal appearance. She is well-developed and normal weight. She is not ill-appearing, toxic-appearing or diaphoretic. HENT: Head: Normocephalic and atraumatic. Mouth/Throat: Lips: Parsons. No lesions. Mouth: No oral lesions. Dentition: [...] unrelieved by Tylenol/Motrin- go to the ER. David Donnelly PA-C 11:53 AM 10/31/24 History and Record Review External record(s) reviewed: prior outpatient record and CareEverywhere. Findings from review of outpatient records: PMHx anxiety, depression, and PCOS Findings from review of CareEverywhere records: PMHx anxiety, depression, and PCOS Differential Diagnoses - Contact dermatitis, unspecified contact dermatitis type, unspecified trigger is more likely for the following reason(s): suggested by H&P - Shingles is less likely for the following reason(s): H&P not suggestive - Viral exanthem is less likely for the following reason(s): H&P not suggestive Disposition The patient was discharged. [...] which included preparing to see the patient, [id number] patient care, completing clinical documentation, obtaining and/or reviewing separately obtained history, performing a medically appropriate examination, counseling and educating the patient/family/caregiver, ordering medications, tests, or procedures, and communicating results to the patient/family/caregiver. documented in this encounter [facility] 10-02-2024 Radiology Diagnostic study note [facility] Imaging Services [address] [place] [address] Transvaginal Non- MR#: [id number] Acct: [id number] Name: DAVID CONTI Rep #: [id number] 5 : 1995 F 29 From: Pa Dewitt MD PCP: Joaquina Morales, CUT OFF SAWYER-Ekta Status: R ER Study:Transvaginal Non- Date of Exam: 10/02/24 Exam# [id number] Ordering Dr: Benito Terry DO PROCEDURE: TRANSVAGINAL [...] US/Transvaginal Non- IMPRESSION: Unremarkable examination. Reading Location: [place] [address] CC: CUT OFF SAWYER-C Joaquina Morales; Dr. Benito Terry, DO ~ Cover Assembler: Signed [facility] 06-29-2024 Consult note [facility] 06-29-2024 Consult note [facility] 06-29-2024 Discharge summary [facility] 06-29-2024 History and physical note [facility] 06-29-2024 Consult note Note Date/Time June 29, 2024 4:24pm [facility] Medical Records Department [address] [place] [address] Pre-Anesthesia Evaluation 06/29/24 1152 MR#: [id number] Acct: [id number] Name: DAVID CONTI Rep #:[id number] 8 : 1995 28 From: Bay Solares MD PCP: Joaquina Morales, CUT OFF SAWYER-C Status:R EG SDC Y Race: C Location: [place] [address] ASA Classification* ASA Classification ASA Classification: 2 [...] 02/15/24 07:05 01/24 07/16 COAG HCG, Quant 61038 mIU/mL (<9 non-preg) H 06/25/24 09:25 Urine Test Negative Negative 10/28/15 09:50 10/28/15 Pre-Assessment Diagnosis/Proposed Procedure Planned Operative Procedure(s): SUCTION D&C Anesthesia History 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: 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 Hx Hospitalization No 06/28/24 15:22 Any Problems [...] take am of surgery PONV PONV - office systems technology instructor: PONV - office systems technology instructor Female Yes 06/28/24 15:22 HX of Motion [...] 06/28/24 16:33 Respiratory Assessment Respiratory Assessment - office systems technology instructor: Respiratory Tract Infection Hx - office systems technology instructor Hx Respiratory Tract Infection No 06/28/24 15:22 STOP Sleep Apnea STOP Sleep Apnea - office systems technology instructor: STOP Sleep Apnea - office systems technology instructor Hx Hypertension No 06/28/24 15:22 Hx Sleep [...] Tobacco Use History Tobacco Use History - office systems technology instructor: Tobacco Use History - office systems technology instructor Tobacco Use Smoking Status Never smoker 06/28/24 15:22 Hx Tobacco Use No 06/28/24 15:22 Years Smoking Packs Smoked per Day Smoking Cessation Date was within the last 15 years Hx Smoking Cessation Date Hx Smoking Cessation Counseling Hematologic Medial History Hematologic Hx - office systems technology instructor: Hematologic Medical Hx - documentation consultant Hx of Blood Transfusion No 06/28/24 15:22 [...] confused, unrespo /Reproduction History /Reproductive History - office systems technology instructor: /Reproductive Hx- office systems technology instructor Hx Now Yes 06/28/24 15:22 Gestational Age [...] mg-folate no.1 1 mg-dha 300 mg capsule (PNV-[place]) sertraline 50 mg tablet (Zoloft) 50 mg [...] current occupational status: employed current occupation: [employer] Prior current occupational exposures/hazards: No pets and animals: [...] 3-4 times per week duration: 15-30 minutes/day tanika/voodoo: Muslim seatbelt use: always do you feel safe at home: Yes 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 06/29/24 1152 <Electronically signed by Bay Solares MD > Date _ Bay Solares MD Cosigner Signature: Date CC: ~ Signed [facility] Work Phone: 1(575) 903-511903-06-2025 Radiology Diagnostic study note [facility] Imaging Services [address], [place] [address] Transvaginal w/Preg US MR#: [id number] Acct: [id number] Name: DAVID CONTI Rep #: [id number] 5 : 1995 F 28 From: Pa Dewitt MD PCP: TOMAS Roth Status: R EG CLI Study:Transvaginal w/Preg US Date of Exam: 06/28/24 Exam# [id number] Ordering Dr: Nikole Chang CNM PROCEDURE: TRANSVAGINAL [...] and unremarkable. DIMENSIONS: Parameter Measurement / EGA [place] Length: 4 mm/6 weeks and 2 [...] Location: [place] CC: ALIX Chang; TOMAS Morales ~ Cover Assembler: Signed [facility]03-01-2025 Consult note Author Bay Solares [facility] Note Date/Time June 29, 2024 3:31 pm [facility] Medical Records Department [address] [place] [address] Anesthesia Postop Eval II 06/29/24 1530 MR#: [id number] Acct: [id number] Name: DAVID CONTI Rep #:[id number] 5 : 1995 28 From: Bay Solares MD PCP: Joaquina Morales, TOMAS Status:R EG SDC Y Race: C Location: [place] [address] Anesthesia Postop Eval I Sum Postop Eval Completion status Anesthesia document: Postop Eval 1 completed: Yes Anesthesia Postop Eval I Summary Anesthesia Postop Eval I Summary: Anesthesia Postop Eval I: Assessment Summary Airway patent Yes 06/29/24 15:25 METAL CASKET [email or web address] Spontaneous unlabored Yes 06/29/24 15:25 METAL CASKET ASSEMBLER.PKEL respirations Mental status Awake,Calm 06/29/24 15:25 METAL CASKET ASSEMBLER.PKEL nausea No 06/29/24 15:25 METAL CASKET ASSEMBLER.PKEL Vomiting No 06/29/24 15:25 METAL CASKET [email or web address].PKEL Anesthesia Postop Eval I: Fluid Summary Crystalloid volume administer 250 06/29/24 15:25 METAL CASKET ASSEMBLER.PKEL (ml) Colloids volume administered ( ml) Blood Product volume administered (ml) Total IV fluid infused 250 06/29/24 15:25 METAL CASKET ASSEMBLER.MAGDALENA Anesthesia Postop Eval I: Summary Notes Anesthesia Complication No 06/29/24 15:25 METAL CASKET [email or web address] Anesthesia Complication Comment: Post-operative progress note Anesthesia: Postop Eval II Evaluation Mental status: Awake Pain Level: 0 nausea: No Vomiting: No 06/29/24 1531 <Electronically signed by Bay Solares MD > Date _ Bay Solares MD Cosigner Signature: Date CC: ~ Signed [facility] Work Phone: 1(692) 352-382302-27-2025 Evaluation note* Diagnosis Onset Date Resolution Status Admit Date Anxiety and depression acute [facility] 2024 10:47am Asthma acute June 21, 2024 10:47am Infertility acute May 10:47am PCOS (polycystic ovarian syndrome) acute June 21 10:47am Early stage of resolved June 21, 2024 10:47am Family history of breast cancer resolved June 21 10:47am Family history of Alcaraz syndrome resolved June 21 10:47am Hx of one miscarriage resolved [facility] 2024 10:47am resolved June 21, 2024 10:47am Supervision of high-risk resolved June 21 10:47am Anxiety and depression acute [facility] 2024 12:36pm Asthma acute June 25 12:36pm Infertility acute June 25 12:36pm PCOS (polycystic ovarian syndrome) acute June 25, 2024 12:36pm Early stage of resolved June 25, 2024 12:36pm Family history of breast cancer resolved June 25, 2024 12:36pm Family history of Alcaraz syndrome resolved June 25, 2024 12:36pm Hx of one miscarriage resolved [facility] 2024 12:36pm resolved June 25 12:36pm Supervision of high-risk resolved June 25, 2024 12:36pm Threatened affectin g intrauterine resolved June 12:36pm Missed acute June 11:39am [facility] Work Phone: 1(280) 744-652102-27-2025 Evaluation note* Diagnosis Onset Date Resolution Status [...] June 21 10:47am Anxiety and depression acute [facility] 2024 12:36pm Asthma acute June 25 12:36pm [...] acute June 11:39am Patient requested test acute [facility] 2024 10:33am [facility] Work Phone: 1(257) 322-841902-27-2025 Evaluation note* Diagnosis Onset Date Resolution Status [...] June 21 10:47am Anxiety and depression acute [facility] 2024 12:36pm Asthma acute June 25 12:36pm [...] acute June 11:39am Patient requested test acute [facility] 2024 10:33am Infertility acute September 11 9:47am Missed acute September 11, 2024 9:47am PCOS (polycystic ovarian syndrome) acute September 11, 2024 9 :47am [facility] Work Phone: 1([phone]) 151-775202-27-2025 Evaluation note* Diagnosis Onset Date Resolution Status [...] June 21 10:47am Anxiety and depression acute [facility] 2024 12:36pm Asthma acute June 25 12:36pm [...] acute June 11:39am Patient requested test acute [facility] 2024 10:33am Infertility acute September 11 9:47am Missed acute September 11, 2024 9:47am PCOS (polycystic ovarian syndrome) acute September 11, 2024 9 :47am Infertility acute October 11 10:14am [facility] [employer] Work Phone: 1(141) 161-859012-02-2024 History of Present illness Narrative* Celeste Hawkins, DISH CARRIER-PUBLIC HEALTH SANITARIAN TECHNICIAN - 03/26/2024 2:40 PM EST Subjective Patient [...] Record Patient disposition: Home documented in this [facility] Work Phone: 1(638) 525-455505-23-2024 Evaluation + Plan note* Assessment & Plan Note - JACINTO Roth CNP - 09/15/2023 4:40 PM EDTAssociated Problem(s): Anxiety and depression Stable. Continue Wellbutrin 300 mg daily [place] [id number] Evaluation + Plan note* Assessment & Plan Note - JACINTO Roth CNP - 09/15/2023 4:40 PM EDTAssociated Problem(s): Skin sensation disturbance Left foot exam unremarkable and currently asymptomatic. Likely superficial nerve inflammation. Recommend avoiding shoes that are tight across the top of the foot, ice and elevate 2-3 times daily and follow-up if fails to resolve. Unknown etiology at this time otherwise [id number] Miscellaneous Notes* Assessment & Plan Note - [...] at this time otherwise [id number] History of Present illness Narrative* Tracey Ordaz [...] mg in the evening. Yes Historical Provider, Cdvprlib-Wzs-Be-FA (/IRON PO) Take 1 tablet by mouth [...] CNP 09/15/2023 4:40 PM documented in this [facility]05-23-2024 Instructions* Patient Instructions* JACINTO Roth CNP - 09/15/2023 1:00 PM EDT Ice and elevate foot couple times a day, be careful not to wear shoes that pinch/pressure to much on top of foot. documented in this [facility]03-21-2024 Instructions* Patient Instructions* Nancy Ordoñez APRN.CNP - 07/14/2023 8:28 AM EDT The addition [...] anxiety and stress and reduces emotional eating. https://www.Worklight.Brammo/naltrexone#:~:text=Regulate%20appetite%3A%20Nalt rexone%20helps%20normalize,may%20lead%20to%20weight%20loss. Does Wellbutrin cause weight loss? It can. Bupropion (the generic form of Wellbutrin) was initially prescribed as an antidepressant. It is the only antidepressant associated with weight loss (Shan-Tovarechet, 2019). Healthcare providers noticed that mostly pleasant [...] bupropion, which is associated with weight loss (Shan-Pedrero, 2019). https://Zopim.co/health-guide/ksjucmgaou-xph-jpsbdd-loss/ Bupropion and naltrexone: Patient drug information Access [employer] Online for additional drug information, tools, and databases. Copyright 0073-2881 [employer]. All rights reserved. (For additional information see [...] list. For additional information please see the seam steamer s website: https://www.contrave.Brammo. Oral Contraceptives: The Pill Beginning the Pill [...] pills. Theseare formulated to give you a water meter mechanic period. Unless otherwise instructed, you should start [...] iron deficiency anemia in pill users. terminal carman use is associated with a decreased incidence [...] and mild fluid retention. There is no terminal carman weight gain with the use of the [...] health information. Bupropion: Patient drug information Access [employer] for additional drug information, tools, and databases. Copyright 5554-0818 [employer]. All rights reserved. Contributor Disclosures (For additional [...] much, and when it happened. Last Reviewed [id number] Consumer Information Use and Disclaimer This generalized [...] or approved for treating a specific patient. [employer] and its affiliatesdisclaim any warranty or liability relating to this information or the use thereof. The use of thisinformation is governed by the Terms of Use, available at https://www.[employer].com/en/know/hgprhfoa-etjkjwbwufxim-msrrj. 2021 [employer]. and its affiliates and/or licensors. All rights reserved. documented in this encounterUc Health03-21-2024 History of Present illness Narrative* Nancy rOdoñez APRN.CNP - 07/14/2023 7:30 AM EDT Some [...] candy controlled Exercise: stable sedentary job at [employer]. 1 mile daily walk with dog Stress: [...] by mouth every morning. PNV/iron/folic acid ( TTOZLDU-KFDK-RN ORAL) Take 1 tablet by mouth once daily. albuterol HFA (PROVENTIL HFA, VENTOLIN HFA) 90 mcg/actuation inhaler Inhale 2 Puffs as instructed every 4 hours as needed. 1 Inhaler 0 No current facility-administered medications for this visit. Occupation: [employer] Contraception: none BP 126/82 Pulse 80 Wt [...] Level: 4 - Moderate documented in this encounterUc Health02-22-2024 Instructions* Patient Instructions* Nancy Ordoñez APRN.CNP - 06/16/2023 7:10 AM [...] and equals 21 g protein Beef, Chicken, [place], Pork, Ricardo 1 oz 7g Fish, Tuna [...] protein & 2 carb Protein AND carbs Beef/[place] Jerky 1 oz dried 10-15g protein - [...] oz - 8g protein & 12g carb Cypriot yogurt Full Fat Cypriot Yogurt 1 cup - 20.4g protein & 9.1g carb 2% Cypriot Yogurt 1 cup - 22.7g protein & 9.1g carb 0% (fat-free) Cypriot Yogurt - 1 cup 24g protein & 9.3g carb :ratio, KETO Friendly Dairy Snack 1 single svg - 15g protein & 2g carb :ratio Protein 1 single svg - 25g protein & 8g carb Dannon Light + Fit 1 single csvg - 12g protein & 9g carb Two Good Lowfat Cypriot Yogurt, [place], Lower Sugar - 12g protein & 2g carb Oikos Triple Zero Cypriot Nonfat Yogurt 1 single svg - 15g protein & 7g carb Aldi Cypriot yogurt 10g protein & 4 g carb Cheese each oz Brie 5.9g protein & 0.1g carb Cheddar Cheese 7g protein & 0.4g carb Mozzarella Cheese 6.3g protein & 0.6g carb Terrence Cheese 6.7g protein & 0.7g carb Parmesan Cheese 10g protein & 0.9g carb Cream Cheese 1.7g protein & 1.2g carb Feta 4g protein & 1.2g carb Dutch Cheese 7.6g protein & 1.5g carb Portillo s Low Fat Cottage Cheese 1/2cup 12g protein & 4g carb Legumes Lentils cup 9g protein & 20g carb Bertrand beans cup 7g protein & 20g carb Kidney, Black, [place], Cannellini beans cup 8g protein & 20g carb Soybeans 1/2 c 14g protein & 8.5g carb Peanut butter, natural 2 Tbsp 7-8g protein & 4g net carbs, 190 calories Marathon milk, unsweetened 8 oz 1g protein & 2g carb Soy milk 8 oz 3.5g protein & 1.6g carb Tofu 1/2 cup 10g protein & 2.3g carb Nuts and Seeds per oz Pumpkin Seeds - 6.9g protein & 5g carb Almonds - 5.9g protein & 6.1g carb Canyon Seeds - 5.8g protein & 5.6g carb Pistachios - 5.8g protein & 7.8g carb Cashews - 5.1g protein & 9.2g carb Walnuts - 4.3g protein & 3.8g carb Hazelnuts - 4.2g protein & 4.7g carb Saltese Nuts - 4.0g protein & 3.4g carb [...] Cabbage Spinach Peppers Green beans Carrots Tomato [place] Cunningham sprouts Cauliflower Lettuce Snap peas Broccoli [...] High Protein Snack Ideas 1. Jerky 2. [place] mix without or minimal dried fruit 3. [place] roll-ups 4. Cypriot yogurt 5. Veggies and yogurt dip 6. Tuna 7. Hard-boiled eggs 8. Peanut butter celery sticks 9. No-bake energy bites 10. Cheese slices/ Cheese Stick 11. Handful of almonds 12. Roasted chickpeas 13. Hummus and veggies 14. Cottage Cheese 15. Celery/fruit with peanut butter 16. Beef sticks (Grass-fed, natural ingredients) 17. Protein bars 18. Canned [place] 19. Matthew pudding 20. Homemade granola - rolled oats, nuts, and a little sweetener - 1/4 cup serving 21. Pumpkin seeds 22. Nut butter 23. Protein shakes 24. Edamame 25. Avocado and chicken salad 26. Fruit and nut bars - natural ingredients without added sugar. 27. Lentil salad 28. Overnight oatmeal 29. Egg muffins 30. Leftover protein or lunch meat documented in this encounterUc Health02-22-2024 History of Present illness Narrative* Nancy Ordoñez APRN.SANDIP - 06/16/2023 6:52 AM EST Some documentation [...] tab for anxiety and depression Was in [place] with who races - very hectic travel. [...] to candy Exercise: stable sedentary job at [employer]. Just got gym membership - walking and [...] by mouth every morning. PNV/iron/folic acid ( EDNUGHB-KSKA-AX ORAL) Take 1 tablet by mouth once [...] Level: 4 - Moderate documented in this encounterUc Health02-21-2024 Evaluation + Plan note* Assessment & Plan Note - JACINTO Roth CNP - 06/15/2023 9:35 AM ESTAssociated Problem(s): PCOS (polycystic ovarian syndrome) Recommend following up with [employer] regarding side effects of metformin and requesting if she can take extended release metformin to see if that is better tolerated. [facility] [id number] Miscellaneous Notes* Assessment & Plan Note - JACINTO Roth CNP - 06/15/2023 9:35 AM ESTAssociated Problem(s): PCOS (polycystic ovarian syndrome) Recommend following up with [employer] regarding side effects of metformin and requesting [...] an update in about 1 month via MyChart if she would like to increase the dose to 300 mg. We will schedule her for follow-up in 3 months documented [facility] this [facility]02-21[facility] Miscellaneous Notes* Assessment & Plan Note - JACINTO Roth CNP - 06/15/2023 9:35 AM ESTAssociated Problem(s): PCOS (polycystic ovarian syndrome) Recommend following up with [employer] regarding side effects of metformin and requesting [...] an update in about 1 month via Voxeo if she would like to increase the dose to 300 mg. We will schedule her for follow-up in 3 months * Addendum Note - JACINTO Roth CNP - 06/15/2023 7:40 AM EST Addended by: JOAQUINA MORALES on: 06/16/2023 08:32 AM Modules accepted: Level of Service documented in this [facility]02-21-[facility] Evaluation + Plan note* Assessment & Plan Note - JACINTO Roth CNP - 06/15/2023 9:34 AM ESTAssociated Problem(s): Anxiety and depression Denies any suicidal or homicidal ideation. Anxiety and depression have improved we will continue Wellbutrin 150 mg daily, patient to give us an update in about 1 month via Voxeo if she would like to increase the dose to 300 mg. We will schedule her for follow-up in 3 months [facility] [id number] History of Present illness Narrative* Tracey Ordaz - 06/15/2023 7:40 AM EST Patient was identified by name and Date of . * Joaquina Morales, DISH CAR[employer]ER - PUBLIC HEALTH SANITARIAN TECHNICIAN - 06/15/2023 7:40 AM EST Images from [...] an update in about 1 month via KONUXt if she would like to increase the dose to 300 mg. We will schedule her for follow-up in 3 months 2. PCOS (polycystic ovarian syndrome) Assessment & Plan: Recommend following up with [employer] regarding side effects of metformin and requesting if she can take extended release metformin to see if that is better tolerated. Follow up for 3 month [facility]. SUBJECTIVE/OBJECTIVE: HPI - David Conti (: 1995) is a 27 y.o. female , Established patient, here for the evaluation ofthe following chief complaint(s): Medication Check RACING WITH IN [place] WENT WELL, WAS SUPER BUSY. Did not get to do any sightseeing as theywere busy at the track every day. Got back from [place] on June 05, 2023. Patient reports she went to outpatient services director for pcos- was started on metformin and [...] with meals. 05/18/23 08/16/23 Yes Historical Provider, Gopwodyi-Iko-Ju-FA (/IRON PO) Take 1 tablet by mouth [...] CNP 06/15/2023 9:35 AM documented in this [facility]02-21[facility] History of Present illness Narrative* Tracey Ordaz - 06/15/2023 7:40 AM EST Patient was identified by name and Date of . * Joaquina Morales, DISH CARRIER - PUBLIC HEALTH SANITARIAN TECHNICIAN - 06/15/2023 7:40 AM EST Images from [...] an update in about 1 month via KONUXt if she would like to increase the dose to 300 mg. We will schedule her for follow-up in 3 months 2. PCOS (polycystic ovarian syndrome) Assessment & Plan: Recommend following up with [employer] regarding side effects of metformin and requesting if she can take extended release metformin to see if that is better tolerated. Follow up for 3 month [facility]. SUBJECTIVE/OBJECTIVE: HPI - David Conti (: 1995) is a 27 y.o. female , Established patient, here for the evaluation ofthe following chief complaint(s): Medication Check RACING WITH IN [place] WENT WELL, WAS SUPER BUSY. Did not get to do any sightseeing as theywere busy at the track every day. Got back from [place] on June 05, 2023. Patient reports she went to outpatient services director for pcos- was started on metformin and [...] with meals. 05/18/23 08/16/23 Yes Historical Provider, Zusevhuw-Kiy-Ya-FA (/IRON PO) Take 1 tablet by mouth [...] CNP 06/15/2023 9:35 AM documented in this [facility]02-21-[facility] Instructions* Patient Instructions* JACINTO Roth CNP - 06/15/2023 7:40 AM EST Asked about extended release metformin. Give update in about a month- if you want to increase dose of Wellbutrin or not documented in this [facility]02-21-20[facility] Instructions* Patient Instructions* JACINTO Roth CNP - 06/15/2023 7:40 AM EST Asked about extended release metformin. Give update in about a month- if you want to increase dose of Wellbutrin or not documented in this [facility]02-21-2024 Note* Addendum Note - JACINTO Roth CNP - 06/15/2023 7:40 AM ESTAddended by: JOAQUINA MORALES on: 06/16/2023 08:32 AM Modules accepted: Level of Service [facility] [id number] NoteAddended by: JOAQUINA MORALES on: 06/16/2023 08:32 AM Modules accepted: [facility]24 Evaluation + Plan note* Assessment & Plan Note - JACINTO Roth CNP - 05/16/2023 4:23 PM ESTAssociated Problem(s): Weight gain Will have her follow up with her outpatient services director, suspect gain posssilby from pcos. Continue exercise, healthy eating and portion control. Will stop lexapro (possible weight gain) and switch to wellbutrin. [facility] [id number] Miscellaneous Notes* Assessment & Plan Note - JACINTO Roth CNP - 05/16/2023 4:23 PM ESTAssociated Problem(s): Weight gain Will have her follow up with her outpatient services director, suspect gain posssilby from pcos. Continue exercise, [...] in about 1 month documented in this [facility]01-22-2024 Miscellaneous Notes* Assessment & Plan Note - JACINTO Roth CNP - 05/16/2023 4:23 PM ESTAssociated Problem(s): Weight gain Will have her follow up with her outpatient services director, suspect gain posssilby from pcos. Continue exercise, [...] accepted: Level of Service documented in this [facility]01-22-2024 Evaluation + Plan note* Assessment & Plan Note - JACINTO Roth CNP - 05/16/2023 4:16 PM ESTAssociated Problem(s): Anxiety and depression Denies si/hi. Anxiety and depression symptoms better but still is having trouble focusing. Will taper discontinue lexapro and start wellbutrin. Follow up in about 1 month [facility] [id number] History of Present illness Narrative* Tracey Ordaz [...] Will have her follow up with her outpatient services director, suspect gain posssilby from pcos. Continue exercise, healthy eating and portion control. Will stop lexapro (possible weight gain) and switch to wellbutrin. Follow up in about 1 month (around 06/16/2023). SUBJECTIVE/OBJECTIVE: JANINE Conti (: 1995) is a 27 y.o. female , Established patient, here for the evaluation ofthe following chief complaint(s): Medication Check and Weight Gain Stopped nicotine and stopped etoh since we last met. . Has gained some weight. She thinks it may befrom going off of her control medication, Is working out with online [employer] classes daily, watching what she is eating. Is doing well as far as eating and exercising. She also is doing yoga. Stopped control. Has not had period since dec and February and has been testing. Is trying to get . Will be following up with her outpatient services director. Reports anxiety is better, but is not able to focus well still. Denies si/hi. Her and her are getting ready to go to [place] for car racing for 11 days. Her races cars. States she is looking forward to going. Prior to Admission medications Medication Sig Start Date End Date Taking? Authorizing Provider escitalopram (Lexapro) 20 MG tablet Take 1 tablet (20 mg) by mouth daily. 04/08/23 07/07/23 Yes Joaquina Morales APRN - PUBLIC HEALTH SANITARIAN TECHNICIAN MV-Min-Fe Fum-FA-DHA ( 1 PO) Take by [...] CNP 05/16/2023 4:24 PM documented in this [facility]01[facility] History of Present illness Narrative* Tracey Ordaz [...] Will have her follow up with her outpatient services director, suspect gain posssilby from pcos. Continue exercise, healthy eating and portion control. Will stop lexapro (possible weight gain) and switch to wellbutrin. Follow up in about 1 month (around 06/16/2023). SUBJECTIVE/OBJECTIVE: JANINE Conti (: 1995) is a 27 y.o. female , Established patient, here for the evaluation ofthe following chief complaint(s): Medication Check and Weight Gain Stopped nicotine and stopped etoh since we last met. . Has gained some weight. She thinks it may befrom going off of her control medication, Is working out with online [employer] classes daily, watching what she is eating. Is doing well as far as eating and exercising. She also is doing yoga. Stopped control. Has not had period since dec and February and has been testing. Is trying to get . Will be following up with her outpatient services director. Reports anxiety is better, but is not able to focus well still. Denies si/hi. Her and her are getting ready to go to [place] for car racing for 11 days. Her races cars. States she is looking forward to going. Prior to Admission medications Medication Sig Start Date End Date Taking? Authorizing Provider escitalopram (Lexapro) 20 MG tablet Take 1 tablet (20 mg) by mouth daily. 04/08/23 07/07/23 Yes Joaquina Morales, DISH CARRIER - PUBLIC HEALTH SANITARIAN TECHNICIAN MV-Min-Fe Fum-FA-DHA ( 1 PO) Take by [...] CNP 05/16/2023 4:24 PM documented in this [facility]01-22-[facility] Instructions* Patient Instructions* JACINTO Roth CNP - 05/16/2023 1:40 PM EST Start wellbutrin and decrease lexapro to 10 mg daily x 7 days, then stop the lexapro. Check Headspace vangie for meditation documented in this [facility]01-22-2024 Instructions* Patient Instructions* JACINTO Roth CNP - 05/16/2023 1:40 PM EST Start wellbutrin and decrease lexapro to 10 mg daily x 7 days, then stop the lexapro. Check Headspace vangie for meditation documented in this [facility]01-22-2024 Note* Addendum Note - JACINTO Roth CNP - 05/16/2023 1:40 PM ESTAddended by: JOAQUINA MORALES on: 05/17/2023 10:57 AM Modules accepted: Level of Service [facility] [id number] NoteAddended by: JOAQUINA MORALES on: 05/17/2023 10:57 AM Modules accepted: Level of ServiceSUniversity [facility]11-29-2023 Evaluation + Plan note* Assessment & Plan Note - JACINTO Roth CNP - 03/23/2023 1:21 PM ESTAssociated Problem(s): Anxiety and depression Denies any suicidal or homicidal ideation. Reports improved symptoms. We will continue on Lexapro 10 mg daily she is to provide an update through Voxeo in approximately 4 weeks. Consider up titration if needed at that point. [facility] [id number] Miscellaneous Notes* Assessment & Plan Note - JACINTO Roth CNP - 03/23/2023 1:21 PM ESTAssociated Problem(s): Anxiety and depression Denies any suicidal or homicidal ideation. Reports improved symptoms. We will continue on Lexapro 10 mg daily she is to provide an update through Voxeo in approximately 4 weeks. Consider up titration if needed at that point. documented in this encounterSAccess Hospital [id number] History of Present illness Narrative* Tracey Ordaz - 03/23/2023 9:40 AM EST Patient was identified by name and Date of . Health Main: Lipid-pended HIV/Hep C-declined Covid-declined PHQ-completed Pap-[facility] (will scan in) Tdap-declined Influenza-declined * JACINTO Roth CNP - 03/23/2023 9:40 AM EST Images from [...] she is to provide an update through Voxeo in approximately 4 weeks. Consider up titration if needed at that point. Follow up in about 3 months (around 06/23/2023). SUBJECTIVE/OBJECTIVE: [facility] - David Conti (: 1995) is a [...] to set up with a counselor. Has [employer] which she follows for women's health. Prior [...] CNP 03/23/2023 1:22 PM documented in this [facility]11-29-2023 Instructions* Patient Instructions* JACINTO Roth CNP - 03/23/2023 9:40 AM EST Melatonin 1- 5 mg nightly to help with sleep. Send update via [email or web address] to provider in 1 month on how you are doing on the lexapro 10 mg daily. 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 Annual scheduled with DM 11/29/22. No need to call back. Requested Prescriptions Pending Prescriptions Disp Refills Norethindrone Acet-Ethinyl Est (JUNE05/14, ,) 1-20 mg-mcg per tablet 28 tablet 2 Sig: TAKE 1 TABLET BY MOUTH DAILY Dennise Yan RN documented in this encounterUc Health03-09-2023 Miscellaneous Notes* Addendum Note - Rama Holley [...] Bueno LPN * Telephone Encounter - Divya Muniz MD - 06/30/2022 2:54 PM EST ordered * Telephone Encounter - Rosmery Barlow RN - 06/30/2022 1:52 PM EST Patient needing Rx before KJ returns on Tuesday. Rosmery Barlow RN * Telephone Encounter - Isaura Mcneill RN - 06/30/2022 1:11 PM EST RX pending. Patient last seen for annual 10/20/21 documented in this encounterUc Health01-26-2023 Miscellaneous Notes* Telephone Encounter - Dorothy Tadeo [...] Orderpending. Isaura Mcneill RN documented in this encounterUc Health01-06-2023 Miscellaneous Notes* Telephone Encounter - Niharika Lee MD - 04/30/2022 10:48 AM EST Please call & explain that day 21 would be May 20 and today is day 1. Thanks! Niharika Lee MD documented in this encounterUc Health12-29-2022 Miscellaneous Notes* Telephone Encounter - Niharika Lee MD - 04/22/2022 10:28 AM EST Menses can take 7-10 days to start after finishing provera. Niharika Lee MD * Telephone Encounter - Niharika Lee MD - 04/13/2022 10:47 AM EST Rx provera given Niharika Lee MD documented in this encounterUc Health12-08-2022 Miscellaneous Notes* Telephone Encounter - Dennise Yan [...] desires . Thanks! KJ documented in this encounterUc Health12-06-2022 History of Present illness Narrative* Niharika Lee MD - 03/30/2022 11:26 AM EST David Conti is a 26 year old female who presents for problem visit (virtually). HPI: Patient has questions about her positive test and missed menses. Also she would liketo get and has questions about that as well. 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 Niharika Lee MD documented in this encounterUc Health11-29-2022 Miscellaneous Notes* Telephone Encounter - Rosmery Barlow [...] advise. Dennise Yan RN documented in this encounterUc Health11-25-2022 Miscellaneous Notes* Telephone Encounter - Elvi Sam [...] advise. Dai Bueno LPN documented in this encounterUc Health07-08-2022 Miscellaneous Notes* Telephone Encounter - Dennise Yan RN - 10/30/2021 8:50 AM EDT See phone note. Dennise Yan RN * Telephone Encounter - Divya Muniz MD - 10/29/2021 8:45 AM EDT This is KJ patient- I read ultrasound. Please forward to her. documented in this encounterUc Health06-28-2022 History of Present illness Narrative* Niharika Lee [...] OB History No obstetric history on file. 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 Niharika Lee MD documented in this encounterUc Health08-05-2013 History of Past illness Narrative* Problem Noted Date Resolved Date Posterior tibial tendonitis 11/27/201210/24 Achilles tendinitis 11/27/2012 11/12/2014 documented as of this encounter (statuses as of 10/20/2021) [facility] Narrative* Problem Noted Date Resolved Date Posterior tibial tendonitis 11/27/201210/24 Achilles tendinitis 11/27/2012 11/12/2014 documented as of this encounter (statuses as of 10/27/2021) [facility] of [facility] illness Narrative* Problem Noted Date Resolved Date Posterior tibial tendonitis 11/27/201210/24 Achilles tendinitis 11/27/2012 11/12/2014 documented as of this encounter (statuses as of 10/30/2021) [facility] of [facility] illness Narrative* Problem Noted Date Resolved Date Posterior tibial tendonitis 11/27/201210/24 Achilles tendinitis 11/27/2012 11/12/2014 documented as of this encounter (statuses as of 03/19/2022) [facility] of [facility] Narrative* Problem Noted Date Resolved Date Posterior tibial tendonitis 11/27/201210/24 Achilles tendinitis 11/27/2012 11/12/2014 documented as of this encounter (statuses as of 03/23/2022) [facility] of [facility] Narrative* Problem Noted Date Resolved Date Posterior tibial tendonitis 11/27/201210/24 Achilles tendinitis 11/27/2012 11/12/2014 documented as of this encounter (statuses as of 03/30/2022) [facility] Narrative* Problem Noted Date Resolved Date Posterior tibial tendonitis 11/27/201210/24 Achilles tendinitis 11/27/2012 11/12/2014 documented as of this encounter (statuses as of 04/02/2022) [facility] Narrative* Problem Noted Date Resolved Date Posterior tibial tendonitis 11/27/201210/24 Achilles tendinitis 11/27/2012 11/12/2014 documented as of this encounter (statuses as of 04/28/2022) [facility] Narrative* Problem Noted Date Resolved Date Posterior tibial tendonitis 11/27/201210/24 Achilles tendinitis 11/27/2012 11/12/2014 documented as of this encounter (statuses as of 05/01/2022) [facility] Narrative* Problem Noted Date Resolved Date Posterior tibial tendonitis 11/27/201210/24 Achilles tendinitis 11/27/2012 11/12/2014 documented as of this encounter (statuses as of 05/20/2022) [facility] Narrative* Problem Noted Date Resolved Date Posterior tibial tendonitis 11/27/201210/24 Achilles tendinitis 11/27/2012 11/12/2014 documented as of this encounter (statuses as of 07/01/2022) [facility] Narrative* Problem Noted Date Resolved Date Posterior tibial tendonitis 11/27/201210/24 Achilles tendinitis 11/27/2012 11/12/2014 documented as of this encounter (statuses as of 10/06/2022) [facility] Narrative* Problem Noted Date Diagnosed Date Resolved Date Posterior tibial tendonitis 11/27/2012 11/12/2014 Achilles tendinitis 11/27/2012 11/13/19 15 documented as of this encounter (statuses as of 11/30/2022) [facility] History of Past illness Narrative* Problem Noted Date Diagnosed Date Resolved Date Posterior tibial tendonitis 11/27/2012 11/12/2014 Achilles tendinitis 11/27/2012 11/13/19 15 documented as of this encounter (statuses as of 06/16/2023) [facility] History of Past illness Narrative* Problem Noted Date Diagnosed Date Resolved Date Posterior tibial tendonitis 11/27/2012 11/12/2014 Achilles tendinitis 11/27/2012 11/13/19 15 documented as of this encounter (statuses as of 07/14/2023) [facility] Fadumo Barreto [facility] Note Date/Time June 29, 2024 3:00 pm [facility] Medical Records Department [address] [place] [address] Instructions for Home/Discharge Instructions 06/29/24 1459 MR#: [id number] Acct: [id number] Name: DAVID CONTI Rep #:[id number] 1 : 1995 28 From: Fadumo grimm [...] Up With: Fadumo Barreto MD When: Call [phone] to schedule appointment. Test Results: Test results from this visit will be discussed in further detail at your follow- up appointment, if applicable. Discharge Plan Admission Attending Provider: Fadumo Barreto Primary Care Provider: Joaquina Morales Instructions Print Language: Ukrainian Discharge Orders/Prescriptions Prescriptions: No Action PNV-[place] 28-1-300 mg capsule 1 cap PO DAILY [...] by Fadumo Barreto MD>Fadumo Barreto MD CC: CUT OFF SAWYER-C Joaquina Morales ~ Signed [facility] Work Phone: Evaluation note* Diagnosis Encounter for gynecological examination without abnormal finding- Primary Routine gynecological examination Encounter for screening for malignant neoplasm of cervix Screening for malignant neoplasm of the cervix Irregular intermenstrual bleeding Metrorrhagia documented [facility]* Diagnosis Abnormal uterine bleeding (AUB)- Primary documented [facility] this [facility]* Diagnosis Missed menses- Primary Absence of menstruation documented in this encounter [facility] note* Diagnosis PCOS (polycystic ovarian syndrome)- Primary Polycystic ovaries Missed menses Absence of menstruation documented in this encounter [facility]* Diagnosis Anovulation- Primary Female infertility associated with anovulation documented in this encounter [facility] note* Diagnosis Encounter for gynecological examination (general) (routine) without abnormal findings- Primary PCOS (polycystic ovarian syndrome) Polycystic ovaries documented in this encounter [facility] note* Diagnosis Annual physical exam- Primary Routine general medical examination at a [facility] facility Screening for deficiency anemia Screening for other and unspecified deficiency anemia Screening for cholesterol level Anxiety and depression documented in this encounter [facility] note* Diagnosis Anxiety and depression- Primary Weight gain Other symptoms concerning nutrition, metabolism, and development [facility]* Diagnosis Anxiety and depression- Primary Weight gain Other symptoms concerning nutrition, metabolism, and development documented [facility]* Diagnosis Anxiety and depression- Primary PCOS (polycystic ovarian syndrome) Polycystic ovaries [facility]* Diagnosis Anxiety and depression- Primary PCOS (polycystic ovarian syndrome) Polycystic ovaries documented in this encounter [facility] note* Diagnosis PCOS (polycystic ovarian syndrome)- Primary [...] 29.9 in adult documented [facility] this encounter [facility]* Diagnosis PCOS (polycystic ovarian syndrome)- Primary Polycystic ovaries Irregular menses Irregular menstrual cycle Anxiety and depression Dysthymic disorder History of bulimia Personal history of other mental disorder History of anorexia nervosa Personal history of other mental disorder Provided repeat prescription for oral contraceptive Overweight with body mass index (BMI) of 29 to 29.9 in adult [facility] Anxiety and depression- Primary Skin sensation disturbance Disturbance of skin sensation [facility] Contact dermatitis, unspecified contact dermatitis type, unspecified trigger- Primary documented in this encounter [facility] Work Phone: Evaluation note* Diagnosis Contact dermatitis, unspecified contact dermatitis type, unspecified trigger- Primary [facility] Fadumo Barreto [facility] Note Date/Time June 29, 2024 2:48 pm [facility] Medical Records Department [address] [place] [address] H&P Exam - PRESS T[employer]ER [employer] 06/29/24 1445 MR#: [id number] Acct: [id number] Name: DAVID CONTI Rep #:[id number] 0 : 1995 28 From: Fadumo grimm MD PCP: Joaquina Morales CUT OFF SAWYER-C Status:R [facility] Location: [place] [address] HPI - General HPI Narrative DAVID CONTI, is a 28 F who presents for early loss, supposed to be 9 weeks and only measuring 5-6 with early heartbeat seen and then no FHT seen on follow up ultrasound. patient denies any significant crmaping or pain no fevers. 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 06/29/24 1448 <Electronically signed by Fadumo Barreto MD> Cosigner Signature (if applicable): CC: CUT OFF SAWYEROzzy Morales; Dr. Fadumo Barreto MD~ Signed [facility] Work Phone: Hospital Discharge instructions Additional Instructions Your hemoglobin 13.3. EKG normal. hCG negative. Ultrasound normal. Discussed with Dr. Pineda. Stop your progesterone at this time. Take Megace as prescribed for the next 10 days. Call the office for follow-up.[facility] Work Phone: Reason for referral (narrative)* Diagnostic Procedure Only (Routine) - Authorized Specialty Diagnoses / Procedures Referred By Roberto t Referred To Contact [facility] Diagnoses Irregular intermenstrual bleeding Procedures PELVIC US WHI US PELVIC NONOBSTETRIC REAL-TIME IMAGE COMPLETE Niharika Lee MD [address] [place] [address] [facility] [address] [place] [address] Referral ID Status Reason Start Date Expiration Date Visits Requested Visits Authorized [id number] Authorized Auto-Generat ed Referral 10/20/2021 10/20/2022 1 1 [place] for referral (narrative)No reason for referral information [facility] Work Phone: Summary Purpose Family History No Family History Records Found Relationship Condition Age at Onset Recorded Date/T marcus grandmother Malignant neoplasm of breast 45 grandfather Myocardial infarction 51 mother Disorder of thyroid Unknown Advance Directives No Advanced Directives Records Found Advance Directive Response Recorded Date/ Time Advance Directives No May 21, 2024 11:52am Living Will No June 28, 2024 3:22pm Power of Air Bag Curer No June 28 3:22pm Advance Directive Response Recorded Date/ Time Advance Directives No May 21, 2024 12:52pm Living Will No June 28, 2024 4:22pm Power of Air Bag Curer No June 28 4:22pm Advance Directive Response Recorded Date/ Time Advance Directives No May 21, 2024 12:52pm Living Will No June 28, 2024 4:22pm Do you have a Healthcare Power of Air Bag Curer? No June 28, 2024 4:22pm Advance Directive Response Recorded Date/ Time Advance Directives No May 21, 2024 12:52pm Living Will No June 28, 2024 4:22pm Do you have a Healthcare Power of Air Bag Curer? No June 28, 2024 4:22pm Do you have a Healthcare Power of Air Bag Curer? No October 02, 2024 12:04pm Chief Complaint [...] 21, 2024 10:47am PCOS (polycystic ovarian syndrome) [facility] 2024 10:47am Early stage of June 21, 2024 10:47am Family history of breast cancer June 21, 2024 10:47am [facility] 10:47am Hx of one miscarriage June 21 10:47am June 21, 2024 10:47am Supervision of high-risk [facility] 2024 10:47am Anxiety and depression June 25, [...] 9 :47am at early stage May 19, 2 025 6:40am 9WK NOB LMP 04/18/24 June 21, 2024 10:47am EORDERS June 23, 2024 7:02 am INT LABS June 25, 2024 9:20 am discuss miscarriage. June 25, 2024 12: 36pm DATING June 28, 2024 9:42 am Chief Complaint Admit Date INT LABS May 17, 2024 9 :47am at early stage May 19, 2 025 6:40am 9WK NOB LMP 04/18/24 June [...] 21, 2024 10:47am PCOS (polycystic ovarian syndrome) Febru bo 2024 10:47am Early stage of June 21, 2024 10:47am Family history of breast cancer June 21, 2024 10:47am Family history of Alcaraz syndrome Februa ry 2024 10:47am Hx of one miscarriage June 21 10:47am June 21, 2024 10:47am Supervision of high-risk [facility] 2024 10:47am Anxiety and depression June 25, [...] 21, 2024 10:47am PCOS (polycystic ovarian syndrome) [facility] 2024 10:47am Early stage of June 21, 2024 10:47am Family history of breast cancer June 21, 2024 10:47am Family history of Alcaraz syndrome Februa ry 2024 10:47am Hx of one miscarriage June 21 10:47am June 21, 2024 10:47am Supervision of high-risk [facility]2024 10:47am Anxiety and depression June 25, 2024 [...] PCOS (polycystic ovarian syndrome) August 242024 9:47am Chief Complaint Admit Date 9WK NOB LMP 04/18/24 June 21, 2024 10:47am EORDERS June 23, 2024 7:02 am INT LABS June 25, 2024 9:20 am discuss miscarriage. June 25, 2024 12: 36pm DATING June 28, 2024 9:42 am D&C FU July 13, 2024 10: 33am Med Check September 11, 2024 9:47a m BLEEDING October 02, 2024 10:5 6am ER follow up for heavy bleeding September 10:14am Reason for Visit Admit Date Anxiety and depression June 21 10:47am Asthma June 21, 2024 10:47am Infertility June 21, 2024 10:47am PCOS (polycystic ovarian syndrome) Febru bo 2024 10:47am Early stage of June 21, 2024 10:47am Family history of breast cancer June 21, 2024 10:47am Family history of Alcaraz syndrome Februa ry 2024 10:47am Hx of one miscarriage June 21 10:47am June 21, 2024 10:47am Supervision of high-risk Febru bo 2024 10:47am Anxiety and depression June 25, [...] PCOS (polycystic ovarian syndrome) August 242024 9:47am Infertility October 11, 2024 10:1 4am Additional Source Comments Source Comments (unrecognize d section and content) In the event this informatio n is protected by the Federal Confidentiality of Alcohol and Drug Abuse Patient Records regulations: The Federal rules restrict any use of the information to criminally investigate or prosecute any alcohol or drug abuse patient.[facility] the event this information is protected by the Federal Confidentiality of Alcohol and Drug Abuse Patient Records regulations: The Federal rules restrict any use of the information to criminally investigate or prosecute any alcohol or drug abuse patient.[facility] the event this information is protected by the Federal Confidentiality of Alcohol and Drug Abuse Patient Records regulations: The Federal rules restrict any use of the information to criminally investigate or prosecute any alcohol or drug abuse patient.[facility] the event this information is protected by the Federal Confidentiality of Alcohol and Drug Abuse Patient Records regulations: The Federal rules restrict any use of the information to criminally investigate or prosecute any alcohol or drug abuse patient.[facility] the event this information is protected by the Federal Confidentiality of Alcohol and Drug Abuse Patient Records regulations: The Federal rules restrict any use of the information to criminally investigate or prosecute any alcohol or drug abuse patient.[facility] the event this information is protected by the Federal Confidentiality of Alcohol and Drug Abuse Patient Records regulations: The Federal rules restrict any use of the information to criminally investigate or prosecute any alcohol or drug abuse patient.[facility] the event this information is protected by the Federal Confidentiality of Alcohol and Drug Abuse Patient Records regulations: The Federal rules restrict any use of the information to criminally investigate or prosecute any alcohol or drug abuse patient.[facility] the event this information is protected by the Federal Confidentiality of Alcohol and Drug Abuse Patient Records regulations: The Federal rules restrict any use of the information to criminally investigate or prosecute any alcohol or drug abuse patient.[facility] the event this information is protected by the Federal Confidentiality of Alcohol and Drug Abuse Patient Records regulations: The Federal rules restrict any use of the information to criminally investigate or prosecute any alcohol or drug abuse patient.[facility] the event this information is protected by the Federal Confidentiality of Alcohol and Drug Abuse Patient Records regulations: The Federal rules restrict any use of the information to criminally investigate or prosecute any alcohol or drug abuse patient.[facility] the event this information is protected by the Federal Confidentiality of Alcohol and Drug Abuse Patient Records regulations: The Federal rules restrict any use of the information to criminally investigate or prosecute any alcohol or drug abuse patient.[facility] the event this information is protected by the Federal Confidentiality of Alcohol and Drug Abuse Patient Records regulations: The Federal rules restrict any use of the information to criminally investigate or prosecute any alcohol or drug abuse patient.[facility] the event this information is protected by the Federal Confidentiality of Alcohol and Drug Abuse Patient Records regulations: The Federal rules restrict any use of the information to criminally investigate or prosecute any alcohol or drug abuse patient.[facility] the event this information is protected by the Federal Confidentiality of Alcohol and Drug Abuse Patient Records regulations: The Federal rules restrict any use of the information to criminally investigate or prosecute any alcohol or drug abuse patient.[facility] the event this information is protected by the Federal Confidentiality of Alcohol and Drug Abuse Patient Records regulations: The Federal rules restrict any use of the information to criminally investigate or prosecute any alcohol or drug abuse patient.[facility] the event this information is protected by the Federal Confidentiality of Alcohol and Drug Abuse Patient Records regulations: The Federal rules restrict any use of the information to criminally investigate or prosecute any alcohol or drug abuse patient.[facility] Reason for Visit (unrecogniz ed section and content) Reason Onset Date Comments Yearly Exam 10/20/2021 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 Reason Comments Patient Question Reason Comments Irregular Menstrual Cycle Reason Comments Follow Up Reason Comments Orders Reason Onset Date Comments Refill Request Refill Request 10/06/2022 Reason Comments Yearly Exam Reason Comments Follow-up Health Maintenance Lipid-pendedHIV/Hep C-vubgjimhQwplq-aenkdvvkUUT-completedPap-CCF (will scan in)Yqwh-ufeuzveqMktgnnpsm-ydjmiyop Reason Comments Medication Check Weight Gain Reason Comments Medication Check Reason Comments Follow Up Labs and medication Reason Comments Weight Management Reason Comments Medication Check Foot Problem Reason Comments Rash Reason Comments Rash Rash on forearms/chi n, left ankle, possible poison gwendolyn, has tried benadryl anti-itch lotion and extreme poison Gwendolyn & oak scrub, Care Teams (unrecognized sec tion and content) Quality Assurance Inspector Relationship Specialty Start Date End Date Randall Naranjo III, MD NO FORWARDING ADDRESS PCP - General 02/15/02 Quality Assurance Inspector Relationship Specialty Start Date End Date Randall Naranjo III, MD [place]DRESS PCP - General 02/15/02 Quality Assurance Inspector Relationship Specialty Start Date End Date Cebul, Randall Slade III, MD [place]DRESS PCP - General 02/15/02 Quality Assurance Inspector Relationship Specialty Start Date End Date CelRandall III, MD [place]DRESS PCP - General 02/15/02 Quality Assurance Inspector Relationship Specialty Start Date End Date Cebul, Randall Slade III, MD [place]DRESS PCP - General 02/15/02 Quality Assurance Inspector Relationship Specialty Start Date End Date CelRandall III, MD [place]DRESS PCP - General 02/15/02 Quality Assurance Inspector Relationship Specialty Start Date End Date CebulRandall III, MD [place]DRESS PCP - General 02/15/02 Quality Assurance Inspector Relationship Specialty Start Date End Date CeRandall III, MD [place] PCP - General 02/15/02 Quality Assurance Inspector Relationship Specialty Start Date End Date CelRandall III, MD [place]ESS PCP - General 02/15/02 Quality Assurance Inspector Relationship Specialty Start Date End Date CeRandall III, MD [place]DRESS PCP - General 02/15/02 Quality Assurance Inspector Relationship Specialty Start Date End [place] [address] PCP - General Family Medicine 03/08/23 Quality Assurance Inspector Relationship Specialty Start Date End [place] [address] PCP - General Family Medicine 03/08/23 Quality Assurance Inspector Relationship Specialty Start Date End [place] [address] PCP - General Family Medicine 03/08/23 Quality Assurance Inspector Relationship Specialty Start Date End Date Kyle Betancourt MD [address] [place] [id number] PCP - General Family Medicine 03/08/23 Quality Assurance Inspector Relationship Specialty Start Date End Date Joaquina Morales CNP [address] [place] [address] PCP - General Family Medicine 03/23/23 Quality Assurance Inspector Relationship Specialty Start Date End Date Joaquina Morales CNP [address] [place] [address] PCP - General Family Medicine 03/23/23 Quality Assurance Inspector Relationship Specialty Start Date End Date Kyle Betancourt MD [address] [place], [place] [id number] PCP - General Family Medicine 03/08/23 Team Status: Active Member Role Status Dates Joaquina Morales CUT OFF SAWYER-C Primary Care Provider Active Team Status: Inactive Member Role Status Dates Joaquina Morales CUT OFF SAWYER-C Primary Care Provider Active Start: March 07, 2024 End: March 07, 2024 Samanta Jaramillo NP, CUT OFF SAWYER-C Attending Provider Active Start: March 07, 2024 End: March 07, 2024 Samanta Jaramillo NP, CUT OFF SAWYER-C Referring Provider Active Start: March 07, 2024 End: March 07, 2024 Team Status: Inactive Member Role Status Dates Joaquina Morales CUT OFF SAWYER-C Primary Care Provider Active Start: March 25, 2024 End: March 25, 2024 Samanta Jaramillo NP, CUT OFF SAWYER-C Attending Provider Active Start: March 25, 2024 End: March 25, 2024 Samanta Jaramillo NP, CUT OFF SAWYER-C Referring Provider Active Start: March 25, 2024 End: March 25, 2024 Kristina Cruz NP-C Other Provider Active Star t: March 25, 2024 End: March 25, 2024 Team Status: Inactive Member Role Status Dates Joaquina Morales CUT OFF SAWYER-C Primary Care Provider Active Start: May 08, 2024 End: May 08, 2024 Samanta Jaramillo CUT OFF SAWYER, CUT OFF SAWYER-C Attending Provider Active Start: May 08, 2024 End: May 08, 2024 Samanta Jaramillo CUT OFF SAWYER, CUT OFF SAWYER-C Referring Provider Active Start: May 08, 2024 End: May 08, 2024 Team Status: Inactive Member Role Status Dates Joaquinazeinab Morales , CUT OFF SAWYER-C Primary Care Provider Active Start: May 17, [...] 19, 2024 End: May 19, 2024 Joaquina Osminal , CUT OFF SAWYER-C Primary Care Provider Active Start: May 19, 2024 End: May 19, 2024 Team Status: Inactive Member Role Status Dates Joaquina Ainsley , CUT OFF SAWYER-C Primary Care Provider Active Start: June 21, 2024 End: June 21, 2024 Joaquina Ainsley , CUT OFF SAWYER-C Referring Provider Active Start: June 21, 2024 End: June 21, 2024 Nikole Chang CNM Attending Provider Active S tart: June 21, 2024 End: June 21, 2024 Team Status: Active Member Role Status Dates Joaquina Ainsley , CUT OFF SAWYER-C Primary Care Provider Active Start: June 21, 2024 Nikole Chang CNM Attending Provider Active S tart: June 21, 2024 Nikole Chang CNM Referring Provider Active S tart: June 21, 2024 Team Status: Active Member Role Status Dates Joaquina Ainsley , CUT OFF SAWYER-C Primary Care Provider Active Start: June 23, 2024 Nikole Chang CNM Attending Provider Active S tart: June 23, 2024 Nikole Chang CNM Referring Provider Active S tart: June 23, 2024 Team Status: Active Member Role Status Dates Joaquina Bridenthal , CUT OFF SAWYER-C Primary Care Provider Active Start: June 25, 2024 Dr. Isaura Song DO Attending Provider Activ e Start: June 25, 2024 Dr. Isaura Song DO Referring Provider Activ e Start: June 25, 2024 Team Status: Inactive Member Role Status Dates Joaquina Bridenthal , CUT OFF SAWYER-C Primary Care Provider Active Start: June 25, 2024 End: June 25, 2024 Joaquina Osminal , CUT OFF SAWYER-C Referring Provider Active Start: June 25, 2024 End: June 25, 2024 Dr. Isaura Song DO Attending Provider Activ e Start: June 25, 2024 End: June 25, 2024 Team Status: Active Member Role Status Dates Joaquina Osminal , CUT OFF SAWYER-C Primary Care Provider Active Start: June 28, 2024 Nikole Chang CNM Attending Provider Active S tart: June 28, 2024 Nikole Chang CNM Referring Provider Active S tart: June 28, 2024 Team Status: Inactive Member Role Status Dates Joaquina Tennilleenthal , CUT OFF SAWYER-C Primary Care Provider Active Start: June 29, 2024 End: June 29, 2024 Dr. Fadumo Barreto MD Attending Provider Active Start: June 29, 2024 End: June 29, 2024 Dr. Fadumo Barreto MD Referring Provider Active Start: June 29, 2024 End: June 29, 2024 Team Status: Active Member Role Status Dates Joaquinamelissa Morales , CUT OFF SAWYER-C Primary Care Provider Active Start: June 29, 2024 Dr. Fadumo Barreto MD Attending Provider Active Start: June 29, 2024 Dr. Fadumo Barreto MD Referring Provider Active Start: June 29, 2024 Dr. Fadumo Barreto MD Other Provider Active Start: June 29, 2024 Team Status: Inactive Member Role Status Dates Joaquina Ainsley , CUT OFF SAWYER-C Primary Care Provider Active Start: June 21, 2024 End: June 21, 2024 Nikole Chang CNM Attending Provider Active S tart: June 21, 2024 End: June 21, 2024 Nikole Chang CNM Referring Provider Active S tart: June 21, 2024 End: June 21, 2024 Team Status: Inactive Member Role Status Dates Joaquina Osminal , CUT OFF SAWYER-C Primary Care Provider Active Start: June 23, 2024 End: June 23, 2024 Nikole Chang CNM Attending Provider Active S tart: June 23, 2024 End: June 23, 2024 Nikole Chang CNM Referring Provider Active S tart: June 23, 2024 End: June 23, 2024 Team Status: Inactive Member Role Status Dates Joaquina Bridenthal , CUT OFF SAWYER-C Primary Care Provider Active Start: June 25, 2024 End: June 25, 2024 Dr. Isaura Song DO Attending Provider Activ e Start: June 25, 2024 End: June 25, 2024 Dr. Isaura Song , Referring Provider Activ e Start: June 25, 2024 End: June 25, 2024 Team Status: Inactive Member Role Status Dates Joaquina Bridenthal , CUT OFF [facility]-C Primary Care Provider Active Start: June 28, 2024 End: June 28, 2024 Nikole Chang CNM Attending Provider Active S tart: June 28, 2024 End: June 28, 2024 Nikole Chang CNM Referring Provider Active S tart: June 28, 2024 End: June 28, 2024 Team Status: Inactive Member Role Status Dates Joaquina Bridenthal , CUT OFF [facility]-C Primary Care Provider Active Start: July 13, 2024 End: July 13, 2024 Joaquina Bridenthal , CUT OFF [facility]-C Referring Provider Active Start: July 13, 2024 End: July 13, 2024 Dr. Fadumo Barreto MD Attending Provider Active Start: July 13, 2024 End: July 13, 2024 Team Status: Inactive Member Role Status Dates Joaquina Bridenthal , CUT OFF [facility]-C Primary Care Provider Active Start: September 11, 2024 End: September 11, 2024 Joaquina Bridenthal , CUT OFF [facility]-C Referring Provider Active Start: September 11, 2024 End: September 11, 2024 Dr. Isaura Song DO Attending Provider Activ e Start: September 11, 2024 End: September 11, 2024 Team Status: Inactive Member Role Status Dates Joaquina Bridenthal , CUT OFF [facility]-C Primary Care Provider Active Start: October 02, 2024 End: October 02, 2024 Dr. Benito Terry , Emergency Provider Active Start : October 02, 2024 End: October 02, 2024 Team Status: Inactive Member Role Status Dates Joaquina Bridenthal , CUT OFF [facility]-C Primary Care Provider Active Start: October 02, 2024 End: October 02, 2024 Dr. Benito Terry , Attending Provider Active Start : October 02, 2024 End: October 02, 2024 Dr. Benito Terry DO Emergency Provider Active Start : October 02, 2024 End: October 02, 2024 Team Status: Inactive Member Role Status Dates TOMAS Roth Primary Care Provider Active Start: October 11, 2024 End: October 11, 2024 TOMAS Roth Referring Provider Active Start: October 11, 2024 End: October 11, 2024 TOMAS Cruz Attending Provider Active Start: October 11, 2024 End: October 11, 2024 Quality Assurance Inspector Relationship Specialty Start Date End Date Joaquina Morales CNP [address] [place] [id number] PCP - General Family Medicine 03/23/23 INFORMATION SOURCE (unrecogn ized section and content) DATE CREATED AUTHOR 12/06/2023 [facility] DATE CREATED AUTHOR AUTHOR'S ORGANIZ ATION 10/14/2024 [facility] DATE CREATED AUTHOR AUTHOR'S ORGANIZ ATION 11/04/2024 [facility] FOR RECORDS PERTAINING TO PATIENTS WHO ARE [...] BE BASED ON THE PRIMARY CLINICAL RECORDS. [employer] [facility]. provides no warranty or guarantee of the accuracy or completeness of information in this document.
[2024-11-11 07:07] LABS: PROGESTERONE 0.6 ng/mL (.)
== END | disposition home or self-care (01) ==
LOC: LAB 07:44
PROVIDERS: PCP Nurse Practitioner Family; Referring Provider Obstetrics & Gynecology; Visit Provider Obstetrics & Gynecology
DX: E28.2 Polycystic ovarian syndrome (principal)
CPT/HCPCS: 36415; 84144

== ENCOUNTER → 2024-12-27 | Outpatient (CLI) | payer BC, SELFPAY ==
[2024-12-27 11:56] LABS: hCG Titer Quant., Serum 323 mIU/mL (<9 non-preg)
== END | disposition home or self-care (01) ==
PROVIDERS: PCP Nurse Practitioner Family; Referring Provider Obstetrics & Gynecology; Visit Provider Obstetrics & Gynecology
DX: Z87.59 Personal history of other complications of pregnancy, childbirth and the puerperium (principal)
CPT/HCPCS: 36415; 84702

== ENCOUNTER → 2024-12-29 | Outpatient (CLI) | payer BC, SELFPAY ==
--- OUTSIDE RECORDS SUMMARY | 2024-12-29 08:37 | XMS RPT_ITS | CCD ---
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 determinationOrdered By: Benito Terry on 10-02-2024 MCH (RBC) [Entitic mass] 28.8 pg Normal 27.0-32.0 [facility] Comment on above: Performed By: #### L 100.0100 #### [facility] Laboratory [address] [place], [address] Mean corpuscular hemoglobin concentration (MCHC) determinationOrdered By: Benito Terry on 10-02-2024 MCHC (RBC) [Mass/Vol] 33.7 g/dL Normal 32-36 [facility] Comment on above: Performed By: #### L 100.0100 #### [facility] Laboratory [address] [place], [address] Mean platelet volume determi nationOrdered By: Benito Terry on 10-02-2024 Platelet mean volume (Bld) [Entitic vol] 11.3 fL Normal 6.2-12.0 [facility] Comment on above: Performed By: #### L 100.0100 #### [facility] Laboratory [address] [place], [address] Monocyte percentageOrdered B y: Benito Terry on 10-02-2024 Monocytes/100 WBC (Bld) 5.3 % Normal 0-10 [facility] Comment on above: Performed By: #### L 100.0100 #### [facility] Laboratory [address] [place], [address] Neutrophil percentageOrdered By: Benito Terry on 10-02-2024 Neutrophils/100 WBC (Bld) 69.2 % Normal 47-70 [facility] Comment on above: Performed By: #### L 100.0100 #### [facility] Laboratory [address] [place], [address] Nucleated red blood cell per centageOrdered By: Benito Terry on 10-02-2024 Nucleated RBC/100 WBC (Bld) [Ratio] 0 % 0-5 [facility] Platelet countOrdered By: Chandra Terry on 10-02-2024 Platelets (Bld) [#/Vol] 271 10*3/uL Normal 150-450 [facility] Comment on above: Performed By: #### L 100.0100 #### [facility] Laboratory [address] [place], [address] ,Serum,hCG Quali.on 10-02-2024 HCG, SERUM QUAL Negative Normal [facility] Comment on above: Performed By: #### L 700.6800 #### [facility] Laboratory [address] [place], [place], [address] Serum beta-hCG test, qualita tiveOrdered By: Benito Terry on 10-02-2024 Beta HCG ( test) Ql Negative [facility] Transvaginal Non-on 10-02-2024 Transvaginal Non- [facility] Imaging Services [address] [place] [address] Transvaginal Non- MR#: [id number] Acct: [id number] Name: DAVID CONTI Rep #: [id number] : 1995 F 29 From: Lui dickens MD PCP: TOMAS Roth Status: [facility] ER Study: Transvaginal Non- Date of Exam: Exam# [id number] Ordering Dr: Benito Terry DO PROCEDURE: TRANSVAGINAL [...] US/Transvaginal Non- IMPRESSION: Unremarkable examination. Reading Location: [place] [address] CC: TRAINING DEVELOPMENT SPECIALISTOzzy Morales; Dr. Benito Terry DO Live Out Nanny: Signed Normal [facility] White blood cell (WBC) count Ordered By: Benito Terry on 10-02-2024 WBC (Bld) [#/Vol] 10.3 10*3/uL Normal 4.4-11.0 [facility] Comment on above: Performed By: #### L 100.0100 #### [facility] Laboratory [address] [place], [address] Dry Ice Machine Operator Office Visit Reporton 09-11-2024 Dry Ice Machine Operator Office Visit Report [facility] [address], [address] [place] [address] OFFICE VISIT Date of Service: 09/11/24 MR#: [id number] Acct: [id number] Name: DAVID CONTI Rep #: [id number] : 1995 Provider: Dr. Isaura Jasso DO Age/Sex: 29/F Location: [facility] Status: Signed Intake Vital Signs 07/13/24 10:42 09/11/24 10:00 Height 5 ft 4 in 5 ft 4 in Weight: 159 lb 169 lb 4 oz BMI 27.3 29.0 BP 138/92 H 130/83 H Intake Visit Reasons: Med Check Heading Machine Operator Required: No Is patient in pain?: No Allergies tree and shrub pollen Allergy (Mild, Verified 09/11/24 10:07) Other weed pollen Allergy (Mild, Verified 09/11/24 10:07) Other Medications ???Medication ???Instructions ???Recorded ???Confirmed ???Type albuterol sulfate 90 mcg/actuation 1 - 2 puff inhalation Q4H PRN WI N 07/15/14 09/11/24 History aerosol inhaler (Ventolin HFA) sob multivit-min no.71-iron fum 28 1 cap PO DAILY 06/15/24 09/11/24 H istory mg-folate no.1 1 mg-dha 300 mg capsule (PNV-[place]ville) sertraline 100 mg tablet 150 mg (1.5 [...] current occupational status: employed 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 Normal [facility] Dry Ice Machine Operator Office Visit Reporton 07-13-2024 Dry Ice Machine Operator Office Visit Report [facility] [address], [address] [place] [address] OFFICE VISIT Date of Service: 07/13/24 MR#: [id number] Acct: [id number] Name: DAVID CONTI Rep #: [id number] : 1995 Provider: Dr. Fadumo gibbs MD Age/Sex: 29/F Location: [facility] Status: Signed Intake Vital Signs 06/29/24 12:02 07/13/24 10:40 07/13/24 10:42 Height 5 ft 4 in 5 ft 4 in 5 ft 4 in Weight: 159 lb BMI 27.3 BP 138/92 H Intake Visit Reasons: D C FU Heading Machine Operator Required: No Is patient in pain?: Yes (some discomfort in the ramin area) Allergies tree and shrub pollen Allergy (Mild, Verified 06/29/24 12:16) Other weed pollen Allergy (Mild, Verified 06/29/24 12:16) Other Medications ???Medication ???Instructions ???Recorded ???Confirmed ???Type albuterol sulfate 90 mcg/actuation 1 - 2 puff inhalation Q4H PRN WI N 07/15/14 07/13/24 History aerosol inhaler (Ventolin HFA) sob multivit-min no.71-iron fum 28 1 cap PO DAILY 06/15/24 07/13/24 H istory mg-folate no.1 1 mg-dha 300 mg capsule (PNV-[place]) letrozole 2.5 mg tablet 2.5 mg PO [...] current occupational status: employed 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 Normal [facility] CBC-Complete Blood Cnt No Di ffon 06-29-2024 Erythrocyte distribution width (RBC) [Ratio] 12.1 % Normal 11.6-14.6 [facility] Comment on above: Performed By: #### L 700.8000, BTS #### [facility] Laboratory [address] [place], [address] Hematocrit (Bld) [Volume fraction] 37.2 % Normal 37-47 [facility] Comment on above: Performed By: #### L 700.8000, BTS #### [facility] Laboratory [address] [place], [address] Hemoglobin (Bld) [Mass/Vol] 12.7 g/dL Normal 12.0-15. 0 [facility] Comment on above: Performed By: #### L 700.8000, BTS #### [facility] Laboratory [address] [place], [address] MCH (RBC) [Entitic mass] 28.9 pg Normal 27.0-32.0 [facility] Comment on above: Performed By: #### L 700.8000, BTS #### [facility] Laboratory [address] [place], [address] MCHC (RBC) [Mass/Vol] 34.1 g/dL Normal 32-36 [facility] Comment on above: Performed By: #### L 700.8000, BTS #### [facility] Laboratory [address] [place], [address] MCV (RBC) [Entitic vol] 84.5 fL Normal 81-99 [facility] Comment on above: Performed By: #### L 700.8000, BTS #### [facility] Laboratory [address] [place], [address] Platelet mean volume (Bld) [Entitic vol] 11.2 fL Normal 6.2-12.0 [facility] Comment on above: Performed By: #### L 700.8000, BTS #### [facility] Laboratory [address] [place], [address] Platelets (Bld) [#/Vol] 340 10*3/uL Normal 150-450 [facility] Comment on above: Performed By: #### L 700.8000, BTS #### [facility] Laboratory [address] [place], [address] RBC (Bld) [#/Vol] 4.40 10*6/uL Normal 4.2-5.4 [facility] Comment on above: Performed By: #### L 700.8000, BTS #### [facility] Laboratory [address] [place], [address] RDW SD 36.8 fl Normal 35.1-43.9 [facility] Comment on above: Performed By: #### L 700.8000, BTS #### [facility] Laboratory [address] [place], [address] WBC (Bld) [#/Vol] 9.0 10*3/uL Normal 4.4-11.0 [facility] Comment on above: Performed By: #### L 700.8000, BTS #### [facility] Laboratory [address] [place], [address] Discharge Instructionon 03 Discharge Instruction [facility] Medical Records Department [address] [place] [address] Instructions for Home/Discharge Instructions 06/29/24 1459 MR#: [id number] Acct: [id number] Name: DAVID CONTI Rep #: [id number] : 1995 28 From: Fadumo Barreto MD PCP: Joaquina Morales NP-Ekta Status:REG [facility] Discharge Instructions Diet Discharge Diet: No restrictions [...] Up With: Fadumo Barreto MD When: Call [phone] to schedule appointment. Test Results: Test results from this visit will be discussed in further detail at your follow-up appointment, if applicable. Discharge Plan Admission Attending Provider: Fadumo Barreto Primary Care Provider: Joaquina Morales Instructions Print Language: Lao Discharge Orders/Prescription s Prescriptions: No Action PNV-Mayville 28-1-300 mg capsule 1 cap PO DAILY [...] Care 06/29/24 1500 Fadumo Barreto MD CC: TRAINING DEVELOPMENT SPECIALIST-C Joaquina Morales Signed Normal [facility] Erythrocyte distribution wid th ratioOrdered By: Fadumo Barreto on 06-29-2024 Erythrocyte distribution width (RBC) [Ratio] 12.1 % 11.6-14.6 [facility] Erythrocyte distribution wid th standard deviationOrdered By: Fadumo Barreto on 06-29-2024 Erythrocyte distribution width (RBC) [Entitic vol] 36.8 fL 35.1-43.9 [facility] Erythrocyte distribution width (RBC) [Ratio] 36.8 fl 35.1-43.9 [facility] H AND P Exam - OB/GYNon H&P 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 [facility] Medical Records Department [address] [place] [address] H P 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 06/29/24 1445 MR#: [id number] Acct: [id number] Name: DAVID CONTI Rep #: [id number] : 1995 28 From: Fadumo Barreto MD PCP: TOMAS Roth Status:[facility] Location: [place] [address] HPI - General HPI Narrative DAVID CONTI, is a 28 F who presents for early loss, supposed to be 9 weeks and only measuring 5-6 with early heartbeat seen and then no FHT seen on follow up ultrasound. patient denies any significant crmaping or pain no fevers. [facility] Medical History Wears contact lenses Wears glasses Depression Anxiety Injury of head and neck Loss of consciousness Non-smoker Seasonal allergies Vocal cord dysfunction History of miscarriage PCOS (polycystic ovarian syndrome) Anxiety and depression Fatigue Asthma Home Medications ???Medication ???Instructions ???Recorded ???Last Taken ???Type albuterol sulfate 90 mcg/actuation 1 - 2 puff inhalation Q4H PRN WI N 07/15/14 Unknown History aerosol inhaler (Ventolin HFA) sob multivit-min no.71-iron fum 28 1 cap PO DAILY 06/15/24 Unknown Hi story mg-folate no.1 1 mg-dha 300 mg capsule (PNV-[place]ville) sertraline 50 mg tablet (Zoloft) 50 mg [...] current occupational status: 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 Normal [facility] Hematocrit Auto (Bld) [Volum e fraction]Ordered By: Fadumo Barreto on 06-29-2024 Hematocrit (Bld) [Volume fraction] 37.2 % 37-47 [facility] Hemoglobin measurementOrdere d By: Fadumo Barreto on 06-29-2024 Hemoglobin (Bld) [Mass/Vol] 12.7 g/dL 12.0-15. 0 [facility] MCV (mean corpuscular volume ) determinationOrdered By: Fadumo Barreto on 06-29-2024 MCV (RBC) [Entitic vol] 84.5 fL 81-99 [facility] MR/POSTOP.ANEon 06-29-2024 MR/POSTOP.ANE [facility] Medical Records Department [address] [place] [address] Anesthesia Postop Eval I 06/29/24 1524 MR#: [id number] Acct: [id number] Name: DAVID CONTI Rep #: [id number] : 1995 28 From: Eriberto Handy CRNA PCP: TOMAS Roth Status:[facility] Y Race: C Location: [facility] Anesthesia: Postop Eval I Current Vital Signs [...] 1 completed: Yes 08/13/24 1240 Date Eriberto Handy CRNA Cosigner Signature: Date CC: Signed Normal [facility] MR/CLDVLBQX3gd 06-29-2024 MR/POSTOPAN2 [facility] Medical Records Department [address] [place] [address] Anesthesia Postop Eval II 06/29/24 1530 MR#: [id number] Acct: [id number] Name: DAVID CONTI Rep #: [id number] : 1995 28 From: Bay Solares MD PCP: Joaquina Morales, TRAINING DEVELOPMENT SPECIALIST-C Status:REG [facility] Y Race: C Location: [place] [address] Anesthesia Postop Eval I Sum Postop Eval Completion status Anesthesia document: Postop Eval 1 completed: Yes Anesthesia Postop Eval I Summary Anesthesia Postop Eval I Summary: Anesthesia Postop Eval I: Assessment Summary Airway patent Yes 06/29/24 15:25 WELD [email or web address] Spontaneous unlabored Yes 06/29/24 15:25 WELD TECHNICIAN.[email or web address] respirations Mental status Awake,Calm 06/29/24 15:25 WELD TECHNICIAN.PKEL nausea No 06/29/24 15:25 WELD TECHNICIAN.PKEL Vomiting No 06/29/24 15:25 WELD TECHNICIAN.[email or web address] Anesthesia Postop Eval I: Fluid Summary Crystalloid volume administer 250 06/29/24 15:25 WELD [email or web address].[email or web address] (ml) Colloids volume administered ( ml) Blood Product volume administered (ml) Total IV fluid infused 250 06/29/24 15:25 WELD [email or web address].[email or web address] Anesthesia Postop Eval I: Summary Notes Anesthesia Complication No 06/29/24 15:25 WELD [email or web address] Anesthesia Complication Comment: Post-operative progress note Anesthesia: Postop Eval II Evaluation Mental status: Awake Pain Level: 0 nausea: No Vomiting: No 06/29/24 1531 Date Bay Solares MD Cosigner Signature: Date CC: Signed Normal [facility] Mean corpuscular hemoglobin (MCH) determinationOrdered By: Fadumo Barreto on 06-29-2024 MCH (RBC) [Entitic mass] 28.9 pg 27.0-32.0 [facility] Mean corpuscular hemoglobin concentration (MCHC) determinationOrdered By: Fadumo Barreto on 06-29-2024 MCHC (RBC) [Mass/Vol] 34.1 g/dL 32-36 [facility] Mean platelet volume determi nationOrdered By: Fadumo Barreto on 06-29-2024 Platelet mean volume (Bld) [Entitic vol] 11.2 fL 6.2-12.0 [facility] Operative Reporton Operative Report [facility] Medical Records Department [address] [place] [address] Operative Report 06/29/24 1457 MR#: [id number] Acct: [id number] Name: DAVID CONTI Rep #: [id number] : 1995 28 From: Fadumo Barreto MD PCP: TOMAS Roth Status:[facility] Location: [facility] Problems Associated Problem List Diagnoses (1) Missed : Procedures Urinary/Genital 52xxx-59xxx: 75282 Trmt of incomplete Ab, any TM Operative Report (Standard) Operative Information Date of Procedure: 06/29/24 Pre-Operative Diagnosis: see problem list comments Post-Operative Diagnosis: same Surgery/Procedure Performed: suction dilation and curettage parent partner: No Type of Anesthesia: IV Sedation and [...] 6 weeks miscarriage Complications Complications: No 06/29/24 5761 Cosigner Signature (if applicable): CC: TOMAS Morales; Dr. Fadumo Barreto MD Signed Normal [facility] Platelet countOrdered By: Poonam Barreto on 06-29-2024 Platelets (Bld) [#/Vol] 340 10*3/uL 150-450 [facility] RBC Auto (Bld) [#/Vol]Ordere d By: Fadumo Barreto on 06-29-2024 RBC (Bld) [#/Vol] 4.40 10*6/uL 4.2-5.4 [facility] Surgery Specimen Level Bernard 06-29-2024 Surgery Specimen Level IV ----- Patient Age/Sex Location Account Attending Physician DAVID CONTI / [facility] [id number] Dr. Fadumo Barreto MD Specimen: [id number] Received: 06/29/24 Status: NARA Boyle Num: [id number] Spec Type: PROD CONC Subm Dr: Dr. [...] no parts are identified. RS3 mr 07/02/2024 CPT: 24650 Patient Age/Sex Location Account Attending Physician GALLITODAVID PORTILLO / [facility] [id number] Dr. Fadumo Barreto MD Signed (signatur e on file) Dr. Ingrid Doshi MD 07/04/24 0932 Normal [facility] Comment on above: Performed By: #### L 700.6800 #### [facility] Laboratory [address] [place], [address] Type AND Screenon 06-29-2024 ABO and Rh group Nom (Bld) Blood group O Rh(D) positive Normal [facility] Comment on above: Order Comment: PN Performed By: #### L 700.8000, BTS #### [facility] Laboratory [address] [facility] [place], [address] White blood cell (WBC) count Ordered By: Fadumo Barreto on 06-29-2024 WBC (Bld) [#/Vol] 9.0 10*3/uL 4.4-11.0 [facility] Transvaginal w/Preg USon Transvaginal w/Preg US [facility] Imaging Services [address] [place], [place] [address] Transvaginal w/Preg US MR#: [id number] Acct: [id number] Name: DAVID CONTI Rep #: [id number] : 1995 F 28 From: Lui dickens MD PCP: Joaquina Morales NP-Ekta Status: REG CLI Study: Transvaginal w/Preg US Date of Exam: 06/28/24 Exam# [id number] Ordering Dr: Nikole Chang CNM PROCEDURE: TRANSVAGINAL [...] and unremarkable. DIMENSIONS: Parameter Measurement / EGA [place] Rump Length: 4 mm/6 weeks and 2 [...] at this time. Follow-up recommended. Reading Location: [id number] CC: ALIX Chang; TRAINING DEVELOPMENT SPECIALIST-C Joaquina Morales Live Out Nanny: Signed Normal [facility] Chlamydia/GC SULEMA aptimaon CHLAMY,NUC ACID Negative Normal Negative [facility] Comment on above: Performed By: #### L 700.6800 #### [facility] Laboratory [address] [place], [place], [address] GC BY NUC ACID Negative Normal Negative [facility] Comment on above: Result Comment: Perf ormed at: =G - [facility] [place] [address] [facility] [place] [id number] Mathematical Sciences Professor: Malika Thompson MD, Phone: [phone] Performed By: #### L 700.6800 #### [facility] Laboratory [address] [place], [place], [address] HCG ( test) QlOrder ed By: Isaura Evans on 06-25-2024 Human Chorionic Gonadotropin, Quant 70548 mIU/mL High <9 [facility] Comment on above: Gestational Age0.2-1 Week: 5-50 mIU/mL1-2 Weeks: 50-500 mIU/mL2-3 Weeks: 100-5000 mIU/mL3-4 Weeks: 500-10,000 mIU/mL4-5 Weeks:1000-50,000 mIU/mL5-6 Weeks: 10,000-100,000 mIU/mL6-8 Weeks: 15,000-200,000 mIU/mL2-3 Months:10,000-100,000 mIU/mL Dry Ice Machine Operator Office Visit Reporton 06-25-2024 Dry Ice Machine Operator Office Visit Report [facility] [address], [address] [place] [address] OFFICE VISIT Date of Service: 06/25/24 MR#: [id number] Acct: [id number] Name: DAVID CONTI Rep #: [id number] : 1995 Provider: Dr. Isaura Jasso DO Age/Sex: 28/F Location: [facility] Status: Signed Intake Vital Signs 06/21/24 10:50 06/25/24 13:01 06/25/24 13:01 Height 5 ft 4 in 5 ft 4 in 5 ft 4 in Weight: 165 lb BMI 28.3 BP 106/70 Intake Visit Reasons: discuss miscarriage. 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 Normal [facility] Serum human chorionic gonado tropin detection for pregnancyOrdered By: Isaura Evans on 06-25-2024 HCG ( test) [place]l [address] mIU/mL High <9 [facility] Comment on above: Gestational Age0.2-1 Week: 5-50 mIU/mL1-2 Weeks: 50-500 mIU/mL2-3 Weeks: 100-5000 mIU/mL3-4 Weeks: 500-10,000 mIU/mL4-5 Weeks:1000-50,000 mIU/mL5-6 Weeks: 10,000-100,000 mIU/mL6-8 Weeks: 15,000-200,000 mIU/mL2-3 Months:10,000-100,000 mIU/mL Type AND Screenon 06-25-2024 ABO and Rh group Nom (Bld) Blood group O Rh(D) positive Normal [facility] Comment on above: Order Comment: PN Performed By: #### L 700.8000, BTS #### [facility] [address] [place], [place], [address] hCG Titer Quant., Serumon HCG QUANT. 73683 mIU/mL High <9 non-preg [facility] Comment on above: Result Comment: Gest ational Age 0.2-1 Week: 5-50 mIU/mL 1-2 Weeks: 50-500 mIU/mL 2-3 Weeks: 100-5000 mIU/mL 3-4 Weeks: 500-10,000 mIU/mL 4-5 Weeks:1000-50,000 mIU/mL 5-6 Weeks: 10,000-100,000 mIU/mL 6-8 Weeks: 15,000-200,000 mIU/mL 2-3 Months:10,000-100,000 mIU/mL Performed By: #### L 700.8000, BTS #### [facility] [address] [place], [place], [address] HCG ( test) QlOrder ed By: Nikole Chang on 06-23-2024 Human Chorionic Gonadotropin, Quant 82125 mIU/mL High [address] Comment on above: Gestational Age0.2-1 Week: 5-50 mIU/mL1-2 Weeks: 50-500 mIU/mL2-3 Weeks: 100-5000 mIU/mL3-4 Weeks: 500-10,000 mIU/mL4-5 Weeks:1000-50,000 mIU/mL5-6 Weeks: 10,000-100,000 mIU/mL6-8 Weeks: 15,000-200,000 mIU/mL2-3 Months:10,000-100,000 mIU/mL Serum human chorionic gonado tropin detection for pregnancyOrdered By: Nikole Chang on 06-23-2024 HCG ( test) Ql [address]67 mIU/mL High [address] Comment on above: Gestational Age0.2-1 Week: 5-50 mIU/mL1-2 Weeks: 50-500 mIU/mL2-3 Weeks: 100-5000 mIU/mL3-4 Weeks: 500-10,000 mIU/mL4-5 Weeks:1000-50,000 mIU/mL5-6 Weeks: 10,000-100,000 mIU/mL6-8 Weeks: 15,000-200,000 mIU/mL2-3 Months:10,000-100,000 mIU/mL hCG Titer Quant., Serumon 03 -01-2025 HCG QUANT. 36558 mIU/mL High <9 non-preg [facility] Comment on above: Result Comment: Gest ational Age 0.2-1 Week: 5-50 mIU/mL 1-2 Weeks: 50-500 mIU/mL 2-3 Weeks: 100-5000 mIU/mL 3-4 Weeks: 500-10,000 mIU/mL 4-5 Weeks:1000-50,000 mIU/mL 5-6 Weeks: 10,000-100,000 mIU/mL 6-8 Weeks: 15,000-200,000 mIU/mL 2-3 Months:10,000-100,000 mIU/mL Performed By: #### L 700.8000 #### [facility] [address] [facility] [place], [place], [address] Urine Cultureon 06-22-2024 URC Culture exhibits no growth. Normal [facility] Comment on above: Performed By: #### L 700.6800 #### [facility] [address] [facility] [address] [facility] [address] [place], [place], [address] C. trachomatis rRNA SULEMA+prob e Ql (Unsp spec)Ordered By: Nikole Chang on 06-21-2024 Chlamydia DNA (SULEMA) Negative Negative [facility] Chlamydia trachomatis rRNA d etection by probe and target amplification methodOrdered By: Nikole Chang on 06-21-2024 C. trachomatis rRNA SULEMA+probe Ql (Unsp spec) Negative Negative [facility] HCG ( test) QlOrder ed By: Nikole Chang on 06-21-2024 Human Chorionic Gonadotropin, Quant 76712 mIU/mL High <9 [facility] Comment on above: Gestational Age0.2-1 Week: 5-50 mIU/mL1-2 Weeks: 50-500 mIU/mL2-3 Weeks: 100-5000 mIU/mL3-4 Weeks: 500-10,000 mIU/mL4-5 Weeks:1000-50,000 mIU/mL5-6 Weeks: 10,000-100,000 mIU/mL6-8 Weeks: 15,000-200,000 mIU/mL2-3 Months:10,000-100,000 mIU/mL Neisseria gonorrhoeae nuclei c acid detection by amplified probe techniqueOrdered By: Nikole Chang on 06-21-2024 N. gonorrhoeae DNA SULEMA+probe Ql (Unsp spec) Negative Negative [facility] Comment on above: Performed at: =[facility] [address] [place] [id number] Director: Malika Thompson MD, Phone: [phone] Dry Ice Machine Operator Office Visit Reporton 06-21-2024 Dry Ice Machine Operator Office Visit Report [facility] [address], [address] [place] [address] OFFICE VISIT Date of Service: 06/21/24 MR#: [id number] Acct: [id number] Name: DAVID CONTI Rep #: [id number] : 1995 Provider: ALIX Bell ams Age/Sex: 28/F Location: [facility] [place] Status: Signed Intake Vital Signs 02/23/24 10:34 05/21/24 11:52 06/21/24 10:50 Height 5 ft 4 in 5 ft 4 in 5 ft 4 in Weight: 168 lb 4 oz BMI 28.8 BP 124/77 H Intake Visit Reasons: 9WK NOB LMP 04/18/24 Heading Machine Operator Required: No Is patient in pain?: No Feel stressed/tense/nerv ous/anxious/difficu lty sleeping: not at all Allergies tree and shrub pollen Allergy (Mild, Verified 06/21/24 10:55) Other weed pollen Allergy (Mild, Verified 06/21/24 10:55) Other Medications ???Medication ???Instructions ???Recorded ???Confirmed ???Type albuterol sulfate 90 mcg/actuation 1 - 2 puff inhalation Q4H PRN WI N 07/15/14 02/23/24 History aerosol inhaler (Ventolin HFA) sob multivit-min no.71-iron fum 28 cap PO 06/15/24 History mg-folate no.1 1 mg-dha 300 mg capsule (PNV-[place]) sertraline 50 mg tablet (Zoloft) 50 mg [...] current occupational status: 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 Normal [facility] Serum human chorionic gonado tropin detection for pregnancyOrdered By: Nikole Chang on 06-21-2024 HCG ( test) Ql 10923 mIU/mL High <9 [facility] Comment on above: Gestational Age0.2-1 Week: 5-50 mIU/mL1-2 Weeks: 50-500 mIU/mL2-3 Weeks: 100-5000 mIU/mL3-4 Weeks: 500-10,000 mIU/mL4-5 Weeks:1000-50,000 mIU/mL5-6 Weeks: 10,000-100,000 mIU/mL6-8 Weeks: 15,000-200,000 mIU/mL2-3 Months:10,000-100,000 mIU/mL Urine cultureOrdered By: Jere Chang on 06-21-2024 Bacteria identified Cx Nom (U) Culture exhibits no growth. [facility] Bacteria identified Cx Nom (U) Culture exhibits no growth. [facility] hCG Titer Quant., Serumon HCG QUANT. 37158 mIU/mL High <9 non-preg [facility] Comment on above: Result Comment: Gest ational Age 0.2-1 Week: 5-50 mIU/mL 1-2 Weeks: 50-500 mIU/mL 2-3 Weeks: 100-5000 mIU/mL 3-4 Weeks: 500-10,000 mIU/mL 4-5 Weeks:1000-50,000 mIU/mL 5-6 Weeks: 10,000-100,000 mIU/mL 6-8 Weeks: 15,000-200,000 mIU/mL 2-3 Months:10,000-100,000 mIU/mL Performed By: #### L 3100.5400 #### [facility] [place], [address] HCG ( test) QlOrder ed By: Isaura Evans on 05-19-2024 Human Chorionic Gonadotropin, Quant 28 mIU/mL High <4 [facility] Comment on above: hCG levels with Gest ational AgeGestational Age hCG mIU/mL (IU/L)0.2 - 1 week 5 - 501-2 weeks 50 - 5002-3 weeks 100 - 82617-0 weeks 500 - 850150-0 weeks 1000 - 969411-1 weeks 55470 - 100,0006-8 weeks 39827 - 200,0002-3 months 19422 - 100,000 Serum human chorionic gonado tropin detection for pregnancyOrdered By: Isaura Evans on 05-19-2024 HCG ( test) Ql 28 mIU/mL High <4 [facility] Comment on above: hCG levels with Gest ational AgeGestational Age hCG mIU/mL (IU/L)0.2 - 1 week 5 - 501-2 weeks 50 - 5002-3 weeks 100 - 42815-6 weeks 500 - 667839-4 weeks 1000 - 572756-0 weeks 75358 - 100,0006-8 weeks 80408 - 200,0002-3 months 18225 - 100,000 hCG Titer Quant., Serumon HCG QUANT. 28 mIU/mL High 1-3 [facility] Comment on above: Order Comment: repea t 48hr Result Comment: hCG levels with Gestational Age Gestational Age hCG mIU/mL (IU/L) 0.2 - 1 week 5 - 50 1-2 weeks 50 - 500 2-3 weeks 100 - 5000 3-4 weeks 500 - 49425 4-5 weeks 1000 - 62650 5-6 weeks 99520 - 100,000 6-8 weeks 32995 - 200,000 2-3 months 64152 - 100,000 Performed By: #### L 700.8000 #### [facility] [address] [place], [place], [address] HCG ( test) QlOrder ed By: Isaura Evans on 05-17-2024 Human Chorionic Gonadotropin, Quant 8 mIU/mL High <4 [facility] Serum human chorionic gonado tropin detection for pregnancyOrdered By: Isaura Evans on 05-17-2024 HCG ( test) Ql 8 mIU/mL High <4 [facility] hCG Titer Quant., Serumon HCG QUANT. 8 mIU/mL High 1-3 [facility] Comment on above: Performed By: #### L 700.8000, BTS #### [facility] [address] [facility] [address] [place], [place], [address] PROGESTERONE 4317on 05-09-19 25 PROGESTERONE 2.8 ng/mL Normal . [facility] Comment on above: Order Comment: N 21 day progesterone Result Comment: Foll icular phase 0.1 - 0.9 Luteal phase 1.8 - 23.9 Ovulation phase 0.1 - 12.0 First trimester 11.0 - 44.3 Second trimester 25.4 - 83.3 Third trimester 58.7 - 214.0 Postmenopausal 0.0 - 0.1 Performed at: [address] [id number] Mathematical Sciences Professor: Neil Henry PhD, Phone: [phone] Performed By: #### L 195.2600 #### [facility] [address] [place], [address] Quantitative serum progester one measurement by electrochemiluminescence immunoassay (Ordered By: Samanta Jaramillo on 05-08-2024 Progesterone Level 2.8 ng/mL . [facility] Comment on above: Follicular phase 0.1 - 0.9 Luteal phase 1.8 - 23.9 Ovulation phase 0.1 - 12.0 First trimester 11.0 - 44.3 Second trimester 25.4 - 83.3 Third trimester 58.7 - 214.0 Postmenopausal 0.0 - 0.1Performed at: [facility] [id number] Director: Neil Henry PhD, Phone: [phone] PROGESTERONE 4317on 03-27-20 PROGESTERONE 0.2 ng/mL Normal . [facility] Comment on above: Order Comment: N21 d ay [id number] Result Comment: Foll icular phase 0.1 - 0.9 Luteal phase 1.8 - 23.9 Ovulation phase 0.1 - 12.0 First trimester 11.0 - 44.3 Second trimester 25.4 - 83.3 Third trimester 58.7 - 214.0 Postmenopausal 0.0 - 0.1 Performed at: [facility] [id number] Mathematical Sciences Professor: Neil Henry PhD, Phone: [phone] Performed By: #### L 591.6808 #### [facility] [address] [place], [address] PROLACTIN 4465on 03-27-2024 PROLACTIN 15.5 ng/mL Normal 4.8-33.4 [facility] Comment on above: Order Comment: Comme nts: Draw on 03/19/24 Result Comment: Perf ormed at: [facility] [id number] Mathematical Sciences Professor: Neil Henry PhD, Phone: [phone] Performed By: #### L 4114.5407 #### [facility] [address] [place], [address] Thyroid Peroxidase ABon 12-0 THYR PEROX AB < 9 Normal 0-34 [facility] Comment on above: Result Comment: Perf ormed at: [employer] [id number] Mathematical Sciences Professor: Neil Henry PhD, Phone: [phone] Performed By: #### L 801.2600, L3300.6900 #### [facility] [address] [place], [address] Prolactin [Mass/Vol]Ordered By: Kristina Cruz on 03-25-2024 Prolactin 15.5 ng/mL 4.8-33.4 [facility] Comment on above: Performed at: [employer] [address] [id number] Director: Neil Henry PhD, Phone: [phone] Quantitative serum progester one measurement by electrochemiluminescence immunoassay (Ordered By: Samanta Jaramillo on 03-25-2024 Progesterone Level 0.2 ng/mL . [facility] Comment on above: Follicular phase 0.1 - 0.9 Luteal phase 1.8 - 23.9 Ovulation phase 0.1 - 12.0 First trimester 11.0 - 44.3 Second trimester 25.4 - 83.3 Third trimester 58.7 - 214.0 Postmenopausal 0.0 - 0.1Performed at: [employer] [address] [id number] Director: Neil Henry PhD, Phone: [phone] TPO Ab QnOrdered By: Samanta mondragon on 03-25-2024 Thyroid Peroxidase Antibodies < 9 IU/mL 0-34 [facility] Comment on above: Performed at: [employer] [address] [place] [id number] Director: Neil Henry PhD, Phone: [phone] L900.0111on 03-07-2024 REPROSOURCE SEE SCANNED REPORT Normal [facility] Comment on above: Performed By: #### L 700.8000 #### [facility] [address] [place], [address] No Panel InformationOrdered By: Samanta Jaramillo on 03-07-2024 Miscellaneous Test Comment SEE SCANNED REPORT [facility] PAP I-G w/rfx hrHPV-Aptimaon 03-01-2024 ADEQ Comment Normal . [facility] Comment on above: Order Comment: PN Result Comment: Sati sfactory for evaluation. Endocervical and/or squamous metaplastic cells (endocervical component) are present. Performed By: #### L 700.8000, BTS #### [facility] [address] [place], [address] COMM . Normal . [facility] Comment on above: Order Comment: PN Performed By: #### L 700.8000, BTS #### [facility] [address] [place], [address] COMMENT Comment Normal . [facility] Comment on above: Order Comment: PN Result Comment: This liquid based ThinPrep(R) pap test was screened with the use of an image guided system. Performed By: #### L 700.8000, BTS #### [facility] [address] [place], [address] DIAG Comment Normal . [facility] Comment on above: Order Comment: PN Result Comment: NEGA TIVE FOR INTRAEPITHELIAL LESION OR MALIGNANCY. Performed By: #### L 700.8000, BTS #### [facility] [address] [place], [address] HPV RFLX Comment Normal . [facility] Comment on above: Order Comment: PN Result Comment: The HPV DNA reflex criteria were not met with this specimen result therefore, no HPV testing was performed. Performed at: [address] [id number] Mathematical Sciences Professor: Malika [place] MD, Phone: [phone] Performed By: #### L 700.8000, BTS #### [facility] [address] [place], [address] PAPSMR Comment Normal . [facility] Comment on above: Order Comment: PN Result Comment: The Pap smear is a screening test designed to aid in the detection of premalignant and malignant conditions of the uterine cervix. It is not a diagnostic procedure and should not be used as the sole means of detecting cervical cancer. Both false-positive and false-negative reports do occur. Performed By: #### L 700.8000, BTS #### [facility] [address] [place], [address] PERFORM Comment Normal . [facility] Comment on above: Order Comment: PN Result Comment: Jesús Calderon Drawing Hand (ASCP) Performed By: #### L 700.8000, BTS #### [facility] [address] [place], [address] Genital Culture Comprehensiv nora 02-26-2024 VAC Reason for Exam: vaginal discharge Normal vaginal leatha isolated. No yeast, Gardnerella, Neisseria or beta-hemolytic Streptococcus isolated. Normal [facility] Comment on above: Performed By: #### L 700.8000, BTS #### [facility] [address] [place], [address] Gram Stainon 02-23-2024 GS Reason for Exam: vaginal discharge Gram Stain 4+ Gram positive rods 1+ Gram positive rods No Gram negative diplococci Score = 1 Interpretation: 0-3 Normal, 4-6 Intermediate, 7-10 Positive BV Normal [facility] Comment on above: Performed By: #### L 700.8000, BTS #### [facility] [address] [place], [address] Dry Ice Machine Operator Office Visit Reporton 02-23-2024 Dry Ice Machine Operator Office Visit Report [facility] [address], [address] [place] [address] OFFICE VISIT Date of Service: 02/23/24 MR#: [id number] Acct: [id number] Name: DAVID CONTI Rep #: [id number] : 1995 Provider: TOMAS Drummond Age/Sex: 28/F Location: [facility] [place] Status: Signed Intake Vital Signs 02/16/24 09:32 02/23/24 10:33 02/23/24 10:34 Height 5 ft 4 in 5 ft 4 in 5 ft 4 in Weight: 157 lb BMI 26.9 BP 131/81 H Intake Visit Reasons: PAP only visit Heading Machine Operator Required: No Is patient in pain?: No [...] disorders of vagina 02/23/24 1114 Date Kristina Cruz TRAINING DEVELOPMENT SPECIALIST-C Cosigner Signature: Date (if applicable) CC: Normal [facility] Pelvic w/ Transvaginalon Pelvic w/ Transvaginal [facility] Imaging Services [address] [place] [address] Pelvic w/ Transvaginal MR#: [id number] Acct: [id number] Name: DAVID CONTI Rep #: [id number] : 1995 F 28 From: Glen Ramirez PCP: TOMAS Roth Status: REG CLI Study: Pelvic w/ Transvaginal Date of Exam: 02/21/24 Exam# [id number] Ordering Dr: Kristina Cruz TRAINING DEVELOPMENT SPECIALIST-C -[id number] EXAM: US PELVIS TRANSABDOMINAL AND TRANSVAGINAL, [...] EDT , CC: TOMAS Cruz; TOMAS Morales Live Out Nanny: Signed Normal [facility] DHEA Sulfateon 02-20-2024 DHEA SULFATE 286.0 ug/dL Normal 84.8-378.0 [facility] Comment on above: Order Comment: repea t 48hr Performed By: #### L 700.8000 #### [facility] [address] [place], [place], [address] PAP I-G w/rfx hrHPV-Aptimaon 02-20-2024 ADEQ Comment Normal . [facility] Comment on above: Order Comment: Speci men Comment: [id number] Comment: Source.............Cervix;EndocervixSpecimen Comment: LMP / Prev Treat...KVR=[id number] Comment: No. of containers..01 ThinPrep Vial Result Comment: Spec imen processed and examined but unsatisfactory for evaluation of epithelial abnormality because of insufficient cellularity. Performed By: #### L 700.6800 #### [facility] [address] [place], [place], [address] COMM . Normal . [facility] Comment on above: Order Comment: Speci men Comment: [id number] Comment: Source.............Cervix;EndocervixSpecimen Comment: LMP / Prev Treat...MCD=[id number] Comment: No. of containers..01 ThinPrep Vial Performed By: #### L 700.6800 #### [facility] [address] [place], [place], [address] COMMENT TNP Normal . [facility] Comment on above: Order Comment: Speci men Comment: [id number] Comment: Source.............Cervix;EndocervixSpecimen Comment: LMP / Prev Treat...RIB=[id number] Comment: No. of containers..01 ThinPrep Vial Result Comment: The Thin Prep(R) Die Hardener was unable to read this specimen. Therefore a manual review was performed. Performed By: #### L 700.6800 #### [facility] [address] [place], [place], [address] DIAG Comment Normal . [facility] Comment on above: Order Comment: Speci men Comment: [id number] Comment: Source.............Cervix;EndocervixSpecimen Comment: LMP / Prev Treat...[id number]=[id number] Comment: No. of containers..01 ThinPrep Vial Result Comment: UNSA TISFACTORY FOR EVALUATION. Performed By: #### L 700.6800 #### [facility] [address] [place], [address] HPV RFLX Comment Normal . [facility] Comment on above: Order Comment: Speci men Comment: [id number] Comment: Source.............Cervix;EndocervixSpecimen Comment: LMP / Prev Treat...[id number]=[id number] Comment: No. of containers..01 ThinPrep Vial Result Comment: The HPV DNA reflex criteria were not met with this specimen result therefore, no HPV testing was performed. Performed at: [address] [id number] Mathematical Sciences Professor: Malika [place] MD, Phone: [phone] Performed By: #### L 700.6800 #### [facility] [address] [facility] [place], [address] PAPSMR Comment Normal . [facility] Comment on above: Order Comment: Speci men Comment: [id number] Comment: Source.............Cervix;EndocervixSpecimen Comment: LMP / Prev Treat...GCH=[id number] Comment: No. of containers..01 ThinPrep Vial Result Comment: The Pap smear is a screening test designed to aid in the detection of premalignant and malignant conditions of the uterine cervix. It is not a diagnostic procedure and should not be used as the sole means of detecting cervical cancer. Both false-positive and false-negative reports do occur. Performed By: #### L 700.6800 #### [facility] [address] [place], [place], [address] PERFORM Comment Normal . [facility] Comment on above: Order Comment: Speci men Comment: [id number] Comment: Source.............Cervix;EndocervixSpecimen Comment: LMP / Prev Treat...JOC=[id number] Comment: No. of containers..01 ThinPrep Vial Result Comment: Leatha Omalley, Drawing Hand (ASCP) Performed By: #### L 700.6800 #### [facility] [address] [place], [place], [address] QC REV Comment Normal . [facility] Comment on above: Order Comment: Speci men Comment: [id number] Comment: Source.............Cervix;EndocervixSpecimen Comment: LMP / Prev Treat...VDD=[id number] Comment: No. of containers..01 ThinPrep Vial Result Comment: Cristine Brush, Supervisory Drawing Hand (ASCP) Performed By: #### L 700.6800 #### [facility] [address] [place], [place], [address] RECOMM Comment Normal . [facility] Comment on above: Order Comment: Speci men Comment: [id number] Comment: Source.............Cervix;EndocervixSpecimen Comment: LMP / Prev Treat...[id number]=[id number] Comment: No. of containers..01 ThinPrep Vial Result Comment: Sugg est follow up as clinically appropriate. Performed By: #### L 700.6800 #### [facility] [address] [place], [place], [address] PROLACTIN 4465on 02-20-2024 PROLACTIN 37.7 ng/mL High 4.8-33.4 [facility] Comment on above: Order Comment: repea t 48hr Performed By: #### L 700.8000 #### [facility] [address] [place], [place], [address] Testosterone Freeon 02-20-20 TESTOSTER FREE 4.6 pg/mL Abnormal 0.0-4.2 [facility] Comment on above: Order Comment: repea t 48hr Result Comment: Perf ormed at: - [facility] [address] [id number] Mathematical Sciences Professor: Neil Henry PhD, Phone: [phone] Performed at: - [facility] [address] [id number] Mathematical Sciences Professor: Shy Lockett MD, Phone: [phone] Performed By: #### L 700.8000 #### [facility] [address] [place], [place], [address] Dry Ice Machine Operator Office Visit Reporton 02-16-2024 Dry Ice Machine Operator Office Visit Report [facility] [address], [address] [place] [address] OFFICE VISIT Date of Service: 02/16/24 MR#: [id number] Acct: [id number] Name: DAVID CONTI Rep #: [id number] : 1995 Provider: TOMAS bingham Age/Sex: 28/F Location: [facility] Status: Signed Intake Vital Signs 02/13/24 07:28 02/16/24 09:25 02/16/24 09:32 Height 5 ft 4 in 5 ft 4 in 5 ft 4 in Weight: 159 lb 6 oz BMI 27.3 BP 110/70 Intake Visit Reasons: Infertility Consult Chief Complaint: Infertility consult Heading Machine Operator Required: No Is patient in pain?: No [...] medications/vitamin s/supplements: lisinopril, lexapro, fenofibrate Partner's employment: [employer] any additional risk factors identified: no Female [...] for provera challenge. 02/16/24 1238 Date Samanta Jaramillo NP TRAINING DEVELOPMENT SPECIALIST-C Cosigner Signature: Date (if applicable) CC: Normal [facility] PROGESTERONE 4317on 02-16-20 PROGESTERONE 0.7 ng/mL Normal . [facility] Comment on above: Order Comment: repea t 48hr Result Comment: Foll icular phase 0.1 - 0.9 Luteal phase 1.8 - 23.9 Ovulation phase 0.1 - 12.0 First trimester 11.0 - 44.3 Second trimester 25.4 - 83.3 Third trimester 58.7 - 214.0 Postmenopausal 0.0 - 0.1 Performed at: [facility] [id number] Mathematical Sciences Professor: Neil Henry PhD, Phone: [phone] Performed By: #### L 700.8000 #### [facility] [address] [place], [address] Comprehensive Metabolic Prof ilon 02-15-2024 Albumin [Mass/Vol] 4.2 g/dL Normal 3.2-5.0 [facility] Comment on above: Order Comment: repea t 48hr Performed By: #### L 700.8000 #### [facility] [address] [place], [address] Albumin/Globulin [Mass ratio] 1.3 {ratio} Normal 0.9-2.4 [facility] Comment on above: Order Comment: repea t 48hr Performed By: #### L 700.8000 #### [facility] [address] [place], [address] ALK P 79 U/L Normal 45-117 [facility] Comment on above: Order Comment: repea t 48hr Performed By: #### L 700.8000 #### [facility] [address] [place], [address] ALT [Catalytic activity/Vol] 51 U/L Normal 13-56 [facility] Comment on above: Order Comment: repea t 48hr Performed By: #### L 700.8000 #### [facility] [address] [place], [address] AST [Catalytic activity/Vol] 22 U/L Normal 15-37 [facility] Comment on above: Order Comment: repea t 48hr Performed By: #### L 700.8000 #### [facility] [address] [place], [place], [address] [phone] [Mass/Vol] 0.30 mg/dL Normal 0.20-1.00 [facility] Comment on above: Order Comment: repea t 48hr Result Comment: For patients on eltrombopag therapy, use of Dimension [place] TBIL is not recommended. Performed By: #### L 700.8000 #### [facility] [address] [place], [address] BUN/CRE 11.0 RATIO Normal 10-20 [facility] Comment on above: Order Comment: repea t 48hr Performed By: #### L 700.8000 #### [facility] [address] [place], [address] CA,Total 8.9 mg/dL Normal 8.5-10.1 [facility] Comment on above: Order Comment: repea t 48hr Performed By: #### L 700.8000 #### [facility] [address] [place], [address] Chloride [Moles/Vol] 109 mmol/L High 98-107 [facility] Comment on above: Order Comment: repea t 48hr Performed By: #### L 700.8000 #### [facility] [address] [place], [address] CO2 [Moles/Vol] 26.0 mmol/L Normal 21.0-32.0 [facility] Comment on above: Order Comment: repea t 48hr Performed By: #### L 700.8000 #### [facility] [address] [place], [address] Creatinine [Mass/Vol] 0.82 mg/dL Normal 0.55-1.02 [facility] Comment on above: Order Comment: repea t 48hr Result Comment: The validity of the calculated GFR GFRAA in patients over 70 years has not been determined. Clinical correlation is essential. Performed By: #### L 700.8000 #### [facility] [address] [place], [address] EST GFR - AA 108 mL/min Normal >60 [facility] Comment on above: Order Comment: repea t 48hr Result Comment: Afri can Swazi GFR Calc Performed By: #### L 700.8000 #### [facility] [address] [place], [address] GAP 5 Normal 5-15 [facility] Comment on above: Order Comment: repea t 48hr Performed By: #### L 700.8000 #### [facility] [address] [place], [address] GFR/1.73 sq M.predicted among non-blacks MDRD (S/P/Bld) [Vol rate/Area] 90 mL/min/{1.73_m2} Normal >60 [facility] Comment on above: Order Comment: repea t 48hr Result Comment: Non- GFR Calc Performed By: #### L 700.8000 #### [facility] [address] [place], [address] Globulin (S) [Mass/Vol] 3.3 g/dL Normal 2.2-4.2 [facility] Comment on above: Order Comment: repea t 48hr Performed By: #### L 700.8000 #### [facility] [address] [place], [address] Glucose [Mass/Vol] 105 mg/dL Normal 74-106 [facility] Comment on above: Order Comment: repea t 48hr Result Comment: Fast ing Glucose result from 100 to 125 mg/dL suggests IMPAIRED HOMEOSTASIS per A.D.A. criteria. Performed By: #### L 700.8000 #### [facility] [address] [place], [address] Potassium [Moles/Vol] 4.0 mmol/L Normal 3.5-5.1 [facility] Comment on above: Order Comment: repea t 48hr Performed By: #### L 700.8000 #### [facility] [address] [place], [address] Sodium [Moles/Vol] 140 mmol/L Normal 136-145 [facility] Comment on above: Order Comment: repea t 48hr Performed By: #### L 700.8000 #### [facility] [address] [place], [address] T PROT 7.5 g/dL Normal 6.4-8.2 [facility] Comment on above: Order Comment: repea t 48hr Performed By: #### L 700.8000 #### [facility] [address] [place], [address] Urea nitrogen [Mass/Vol] 9 mg/dL Normal 7-18 [facility] Comment on above: Order Comment: repea t 48hr Performed By: #### L 700.8000 #### [facility] [address] [place], [address] Hemoglobin A1con 02-15-2024 HbA1c (Bld) [Mass fraction] 5.3 % Normal 3.8-5.6 [facility] Comment on above: Result Comment: Norm al < 5.7 % Prediabetic 5.7 - 6.4 % Diabetic >or= 6.5 % Please note range changes. Performed By: #### L 700.8000 #### [facility] [address] [place], [address] Lipid Profileon 02-15-2024 Cholesterol [Mass/Vol] 237 mg/dL High 200 [facility] Comment on above: Order Comment: repea t 48hr Result Comment: <200 mg/dL Desirable 200-240 mg/dL Borderline >240 mg/dL High Risk Performed By: #### L 700.8000 #### [facility] [address] [place], [address] Cholesterol in HDL [Mass/Vol] 72 mg/dL Normal [facility] Comment on above: Order Comment: repea t 48hr Result Comment: The drugs N-Acetylcysteine and Metamizole may falsely depress this assay. Reference Range HDL <40 mg/dL Low HDL Cholesterol HDL >or= 60 mg/dL High HDL Cholesterol Performed By: #### L 700.8000 #### [facility] [address] [place], [address] Cholesterol in LDL [Mass/Vol] 148 mg/dL High 0-130 [facility] Comment on above: Order Comment: repea t 48hr Performed By: #### L 700.8000 #### [facility] [address] [place], [address] Cholesterol in VLDL [Mass/Vol] 17 mg/dL Normal 5-40 [facility] Comment on above: Order Comment: repea t 48hr Performed By: #### L 700.8000 #### [facility] [address] [place], [address] Triglyceride [Mass/Vol] 86 mg/dL Normal [facility] Comment on above: Order Comment: repea t 48hr Result Comment: The drugs N-Acetylcysteine and Metamizole may falsely depress this assay. Serum Triglycerides Reference Interval Normal <150 mg/dL Borderline high 150 - 199 mg/dL High 200 - 499 mg/dL Very High > or = 500 mg/dL Performed By: #### L 700.8000 #### [facility] [address] [place], [address] T4 Free Directon 02-15-2024 T4 FREE DIRECT 0.84 ng/dL Normal 0.76-1.46 [facility] Comment on above: Order Comment: repea t 48hr Performed By: #### L 700.8000 #### [facility] [address] [place], [address] Thyroid Stim Hormone (TSH)on 02-15-2024 TSH 2.330 uIU/mL Normal 0.358-3.740 [facility] Comment on above: Order Comment: repea t 48hr Performed By: #### L 700.8000 #### [facility] [address] 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 Normal [facility] 36on 12-05-2023 36 Not due for refill. Normal [facility] 36 Refill not yet due. Normal [facility] Office Visiton 09-15-2023 Follow-up visit [id number] Kaylegih Contihel 1995 F Date Provider Department Center 09/15/2023 [id number] MORALES [facility] Family History Problem Relation Age of Onset Thyroid disease Mother Alcaraz syndrome Father Asthma Sister Breast cancer Maternal Grandmother Cancer Maternal Grandfather Cancer Paternal Grandfather Family Status - Relation Status Age at Mother Alive Father Alive Sister Sister Maternal Grandmother Maternal Grandfather Paternal Grandmother Alive Paternal Grandfather Level of Service:15768 [place] OFFICE/OUTPATIENT ESTABLISHED LOW MDM 20 MIN Reason for Visit and Comments: Medication Check [3636019672] Foot Problem [229] Normal [facility] PATINSon 09-15-2023 PATINS Ice and elevate foot couple times a day, be careful not to wear shoes that pinch/pressure to much on top of foot. Normal [facility] Progress Noteon 09-15-2023 Progress Note Stable. Continue Wellbutrin 300 mg daily Normal [facility] Progress Note Left foot exam unremarkable and currently asymptomatic. Likely superficial nerve inflammation. Recommend avoiding shoes that are tight across the top of the foot, ice and elevate 2-3 times daily and follow-up if fails to resolve. Unknown etiology at this time otherwise Normal [facility] Progress Note 09/15/2023 David Conti (: [...] mg in the evening. Yes Historical Provider, Jakpxqae-Zoh-Tc-FA (/IRON PO) Take 1 tablet by mouth [...] Morales APRN - SANDIP 09/15/2023 4:40 PM [facility] Progress Note Patient was identified by name and Date of . [facility] 36on 09-08-2023 36 Rx sent. Follow up as scheduled. [facility] 36 Prescription Request: Last medication check: 06/15/23 Last physical exam: 03/23/23 Next scheduled appointment: 09/15/23 Last date of refill on this medication 07/14/23 [facility] Office Visiton 06-15-2023 Follow-up visit [id number] David Conti 1995 F Date Provider Department Center 06/15/2023 [id number] [facility]ES [facility] Family History Problem Relation Age of Onset Thyroid disease Mother Alcaraz syndrome Father Asthma Sister Breast cancer Maternal Grandmother Cancer Maternal Grandfather Cancer Paternal Grandfather Family Status - Relation Status Age at Mother Alive Father Alive Sister Sister Maternal Grandmother Maternal Grandfather Paternal Grandmother Alive Paternal Grandfather Level of Service:62940 [place] OFFICE/OUTPATIENT ESTABLISHED MOD MDM 30 MIN Reason for Visit and Comments: Medication Check [[id number]] [facility] PATINSon 06-15-2023 PATINS Asked about extended release metformin. Give update in about a month- if you want to increase dose of Wellbutrin or not [facility] Progress Noteon 06-15-2023 Progress Note Recommend following up with TALENT ANALYST regarding side effects of metformin and requesting if she can take extended release metformin to see if that is better tolerated. [facility] Progress Note Denies any suicidal or homicidal ideation. Anxiety and depression have improved we will continue Wellbutrin 150 mg daily, patient to give us an update in about 1 month via Seriously if she would like to increase the dose to 300 mg. We will schedule her for follow-up in 3 months [facility] Progress Note Patient was identified by name and Date of . [facility] Progress Note 06/15/2023 David Conti (: 1995) is a 27 y.o. female , Established patient, here for evaluation of the following chief complaint(s): Medication Check ASSESSMENT/PLAN: 1. Anxiety and depression Assessment & Plan: Denies any suicidal or homicidal ideation. Anxiety and depression have improved we will continue Wellbutrin 150 mg daily, patient to give us an update in about 1 month via [employer] if she would like to increase the dose to 300 mg. We will schedule her for follow-up in 3 months 2. PCOS (polycystic ovarian syndrome) Assessment & Plan: Recommend following up with TALENT ANALYST regarding side effects of metformin and requesting if she can take extended release metformin to see if that is better tolerated. Follow up for 3 month medpippack. SUBJECTIVE/OBJECTIV E: HPI - David Conti (: 1995) is a 27 y.o. female , Established patient, here for the evaluation of the following chief complaint(s): Medication Check RACING WITH IN [place] WENT WELL, WAS SUPER BUSY. Did not get to do any sightseeing as they were busy at the track every day. Got back from [place] on June 05, 2023. Patient reports she went to traffic police officer for pcos- was started on metformin and [...] chew, or split. 05/16/23 07/15/23 Yes Joaquina Morales APRN - SANDIP metFORMIN (Glucophage) 500 MG tablet Take 1 tablet by mouth in the morning and 1 tablet in the evening. Take with meals. 05/18/23 08/16/23 Yes Historical Provider, Oppdrmup-Mtd-Xp-FA (/IRON PO) Take 1 tablet by mouth [...] note. JACINTO Roth CNP 06/15/2023 9:35 AM [facility] Office Visiton 05-16-2023 Follow-up visit [id number] David Conti 1995 F Date Provider Department Center 05/16/2023 [id number] JOAQUINA [facility] Family History Problem Relation Age of Onset Thyroid disease Mother Alcaraz syndrome Father Asthma Sister Breast cancer Maternal Grandmother Cancer Maternal Grandfather Cancer Paternal Grandfather Family Status - Relation Status Age at Mother Alive Father Alive Sister Sister Maternal Grandmother Maternal Grandfather Paternal Grandmother Alive Paternal Grandfather Level of Service:24463 [place] OFFICE/OUTPATIENT ESTABLISHED MOD MDM 30 MIN Reason for Visit and Comments: Medication Check [[id number]] Weight Gain [180] Normal [facility] PATINSon 05-16-2023 PATINS Start wellbutrin and decrease lexapro to 10 mg daily x 7 days, then stop the lexapro. Check Headspace vanige for meditation Normal [facility] Progress Noteon 05-16-2023 Progress Note Will have her follow up with her traffic police officer, suspect gain posssilby from pcos. Continue exercise, healthy eating and portion control. Will stop lexapro (possible weight gain) and switch to wellbutrin. Normal [facility] Progress Note Denies si/hi. Anxiety and depression symptoms better but still is having trouble focusing. Will taper discontinue lexapro and start wellbutrin. Follow up in about 1 month [facility] Progress Note Patient was identified by name and Date of . [facility] Progress Note 05/16/2023 David Conti (: 1995) [...] crush, chew, or split., Starting 05/16/2023, Until 07/15/2023, Normal 2. Weight gain Assessment & Plan: Will have her follow up with her traffic police officer, suspect gain posssilby from pcos. Continue exercise, [...] control medication, Is working out with online [employer] classes daily, watching what she is eating. Is doing well as far as eating and exercising. She also is doing yoga. Stopped control. Has not had period since dec and February and has been testing. Is trying to get . Will be following up with her traffic police officer. Reports anxiety is better, but is not able to focus well still. Denies si/hi. Her and her are getting ready to go to [place] for car racing for 11 days. Her races cars. States she is looking forward to going. Prior to Admission medications Medication Sig Start Date End Date Taking? Authorizing Provider escitalopram (Lexapro) 20 MG tablet Take 1 tablet (20 mg) by mouth daily. 04/08/23 07/07/23 Yes Joaquina Morales APRN - SANDIP MV-Min-Fe Fum-FA-DHA ( 1 [...] note. JACINTO Roth CNP 05/16/2023 4:24 PM [facility] Office Visiton 03-23-2023 Follow-up visit [id number] David Conti 1995 F Date Provider Department Center 03/23/2023 [id number] MORALES [facility] Family History Problem Relation Age of Onset Thyroid disease Mother Alcaraz syndrome Father Asthma Sister Breast cancer Maternal Grandmother Cancer Maternal Grandfather Cancer Paternal Grandfather Family Status - Relation Status Age at Mother Alive Father Alive Sister Sister Maternal Grandmother Maternal Grandfather Paternal Grandmother Alive Paternal Grandfather Level of Service:76577 [place] PERIODIC PREVENTIVE MED EST PATIENT 18-39 YRS Reason for Visit and Comments: Follow-up [874828] Health Maintenance [872] - Lipid-pended HIV/Hep C-declined Covid-declined PHQ-completed Pap-[facility] (will scan in) Tdap-declined Influenza-declined ? Normal [facility] PATINSon 03-23-2023 PATINS Melatonin 1- 5 mg nightly to help with sleep. Send update via [employer] to provider in 1 month on how you are doing on the lexapro 10 mg daily. Normal [facility] Progress Noteon 03-23-2023 Progress Note Denies any suicidal or homicidal ideation. Reports improved symptoms. We will continue on Lexapro 10 mg daily she is to provide an update through Seriously in approximately 4 weeks. Consider up titration if needed at that point. Normal [facility] Progress Note Patient was identified by name and Date of . Health Main: Lipid-pended HIV/Hep C-declined Covid-declined PHQ-completed Pap-[facility] (will scan in) Tdap-declined Influenza-declined Normal [facility] Progress Note 03/23/2023 David Conti (: [...] she is to provide an update through Seriously in approximately 4 weeks. Consider up titration if needed at that point. Follow up in about 3 months (around 06/23/2023). SUBJECTIVE/OBJECTIV E: HPI - Dvaid Conti (: 1995) is a 27 y.o. [...] to set up with a counselor. Has TALENT ANALYST which she follows for women's health. Prior to Admission medications Medication Sig Start Date End Date Taking? Authorizing Provider escitalopram (Lexapro) 10 MG tablet Take 1 tablet (10 mg) by mouth daily. 03/08/23 06/06/23 Yes Joaquina Morales APRN - SANDIP MV-Min-Fe Fum-FA-DHA ( 1 [...] note. JACINTO Roth CNP 03/23/2023 1:22 PM [facility] Office Visiton 03-08-2023 Follow-up visit [id number] David Conti 1995 F Date Provider Department Center 03/08/2023 [id number] MORALES [facility] Family History Problem Relation Age of Onset Thyroid disease Mother Alcaraz syndrome Father Asthma Sister Breast cancer Maternal Grandmother Cancer Maternal Grandfather Cancer Paternal Grandfather Family Status - Relation Status Age at Mother Alive Father Alive Sister Sister Maternal Grandmother Maternal Grandfather Paternal Grandmother Alive Paternal Grandfather Level of Service:41571 [place] OFFICE/OUTPATIENT NEW MODERATE MDM 45-59 MINUTES Reason for Visit and Comments: New Patient [542] Normal [facility] PATINSon 03-08-2023 PATINS Start with 1/2 tab daily x 1 week, then increase to 1 whole tablet If you or someone you know needs support now, call or text 208 or chat [employer] ---- --------- To find providers in your area for mental health services https://findtreatme nt.gov/ To find additional support and information regarding mental health services and substance abuse https://www.samhsa. gov/ Mental Health and Psychiatry Resources [facility] [place] [address] [address] [phone] [place] [phone] [facility] Office [address] [phone] [facility] (LGBTQIA+ inclusive) [phone] [place] [facility] [address] [facility] [address] [place] [address] [place] [facility] [place] [address] [email or web address] [facility] [address] [place], [place] [phone] Psychiatry [facility] Psychiatry [facility] [phone] [employer] Carito Clark, INSPECTOR CASING-FURNACE REPAIR MECHANIC (commercial insurance only) [facility] [phone] Counseling and Psychiatry [facility] [address], [place] [phone] [facility]: [phone] [facility]: [phone] [facility]: [phone] [facility], [address] [place] [address] [facility] (OPEN 15/11): [phone] [facility], Psychiatry [facility] [address], [address] [employer]yze Multiple locations in [place] Go to Yesweplay [facility] Progress Noteon 03-08-2023 Progress Note Denies any active suicidal or homicidal ideation. Symptoms are poorly controlled. Will start Lexapro 10 mg daily, recommend that she start cognitive behavioral therapy-resources provided. Close follow-up in 2 weeks sooner for any worsening symptoms Normal [facility] Progress Note Follow-up with TALENT ANALYST as directed Normal [facility] Progress Note Symptoms are controlled. Normal [facility] Progress Note Controlled. Has not needed her rescue inhaler over a year, continue albuterol as needed as needed [facility] Progress Note 03/08/2023 David Conti (: 1995) [...] mg) by mouth daily., Starting Tue03/08/2023, Until 06/06/2023, Normal 2. Mild intermittent asthma, unspecified whether complicated Assessment & Plan: Controlled. Has not needed her rescue inhaler over a year, continue albuterol as needed as needed 3. Vocal cord dysfunction Assessment & Plan: Symptoms are controlled. 4. PCOS (polycystic ovarian syndrome) Assessment & Plan: Follow-up with TALENT ANALYST as directed Follow up in about 2 weeks (around 03/22/2023) for Recheck. SUBJECTIVE/OBJECTIV E: HPI - David Conti presents as new patient, previous primary care provider Randall Sigala III, last seen 10 years by previous provider. Specialists/other providers? Yes, describe: traffic police officer. Chief complaint(s): New Patient Patient presents today [...] with her mother. Is working full-time at [employer] and then part-time at [employer]. 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 Was 2 years ago to her [...] hospitalizations PCOS-was briefly on control through her TALENT ANALYST however decided not to take it any longer . Is currently taking vitamins states she would be okay if she got Past Medical History: Diagnosis Date Asthma 2009 Past Surgical History: Procedure Laterality Date ANKLE SURGERY Right x 3. Dr. 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 Rents home in [place] and then lives in motor home when he is racing. Social Determinants of Health Financial Resource Strain: Not on file Food Insecurity: Not on file Transp (more content not included)... Normal [facility] SHS CBC W Auto Differential pane l (Bld)on 10-20-2021 Abs Immature Gran <0.03 <0.10 k/uL [facility] Basophils (Bld) [#/Vol] 0.03 10*3/uL <0.11 k/uL [facility] Basophils/100 WBC (Bld) 0.4 % C [facility] Differential cell count method Nom (Bld) Auto [facility] Eosinophils (Bld) [#/Vol] 0.18 10*3/uL <0.46 k/ uL [facility] Eosinophils/100 WBC (Bld) 2.5 % [facility] Erythrocyte distribution width (RBC) [Ratio] 13.0 % 11.5 - 15.0 % [facility] Hematocrit (Bld) [Volume fraction] 37.3 % 36.0 - 46.0 % [facility] Hemoglobin (Bld) [Mass/Vol] 12.3 g/dL 11.5 - 15.5 g/dL [facility] Immature Gran % 0.1 % [facility] Lymphocytes (Bld) [#/Vol] 2.81 10*3/uL 1. 00 - 4.00 k/uL [facility] Lymphocytes/100 WBC (Bld) 39.7 % [facility] MCH (RBC) [Entitic mass] 28.6 pg 26. 0 - 34.0 pg [facility] MCHC (RBC) [Mass/Vol] 33.0 g/dL 30.5 - 36.0 g/dL [facility] MCV (RBC) [Entitic vol] 86.7 fL 80.0 - 100.0 fL [facility] Monocytes (Bld) [#/Vol] 0.46 10*3/uL <0.87 k/uL [facility] Monocytes/100 WBC (Bld) 6.5 % [facility] Neutrophils (Bld) [#/Vol] 3.58 10*3/uL 1. 45 - 7.50 k/uL [facility] Neutrophils/100 WBC (Bld) 50.8 % [facility] Nucleated RBC (Bld) [#/Vol] 10*3/uL <0.01 k/ uL [facility] Nucleated RBC/100 WBC (Bld) [Ratio] 0.0 /100 WBC [facility] Platelet mean volume (Bld) [Entitic vol] 11.4 fL 9.0 - 12.7 fL [facility] Platelets (Bld) [#/Vol] 276 10*3/uL 150 - 400 k/uL [facility] RBC (Bld) [#/Vol] 4.30 10*6/uL 3.90 - 5.2 0 m/uL [facility] WBC (Bld) [#/Vol] 7.07 10*3/uL 3.70 - 11. 00 k/uL [facility] HCG QUAL UR B/Oon 10-20-2021 status Negative neg - pos Sveta ramirez [facility] Quality Check Yes [facility] Vital Signs Date Time Vital Sign Value Performing Clinician Facility 10-31-2024 12:03-0400 Body height 162.6 cm David Slabaugh PA-C Work Phone: [facility] 10-31-2024 12:03-0400 Body mass index (BMI) [Ratio] 29.59 kg/m2 David Slabaugh PA-C Work Phone: [facility] 10-31-2024 12:03-0400 Body temperature 98.29 [degF] David Slabaugh PA-C Work Phone: [facility] 10-31-2024 12:03-0400 Body weight 78.2 kg David Slabaugh PA-C Work Phone: [facility] 10-31-2024 12:03-0400 Diastolic blood pressure 83 mm[Hg] David Slabaugh PA-C Work Phone: [facility] 10-31-2024 12:03-0400 Heart rate 104 /min David Slabaugh PA-C Work Phone: [facility] 10-31-2024 12:03-0400 Respiratory rate 18 /min David Slabaugh PA-C Work Phone: [facility] 10-31-2024 12:03-0400 SaO2% (BldA) [Mass fraction] 98 % David Slabaugh PA-C Work Phone: [facility] 10-31-2024 12:03-0400 Systolic blood pressure 127 mm[Hg] David Slabaugh PA-C Work Phone: [facility] 10-11-2024 10:19-0400 Body height 162.56 cm Joaquina Morales TRAINING DEVELOPMENT SPECIALIST-C Work Phone: [facility] 10-11-2024 10:19-0400 Body mass index (BMI) [Ratio] 28.7 kg/m2 Joaqiuna Bridenthal TRAINING DEVELOPMENT SPECIALIST-C Work Phone: [facility] 10-11-2024 10:19-0400 Body weight 75.86 kg Joaquina Bridenthal TRAINING DEVELOPMENT SPECIALIST-C Work Phone: [facility] 10-11-2024 10:19-0400 Diastolic blood pressure 95 mm[Hg] Joaquina Bridenthal TRAINING DEVELOPMENT SPECIALIST-C Work Phone: [facility] 10-11-2024 10:19-0400 Systolic blood pressure 116 mm[Hg] Joaquina Bridenthal TRAINING DEVELOPMENT SPECIALIST-C Work Phone: [facility] 10-02-2024 13:58-0400 Body temperature 97.8 [degF] Joaquina Bridenthal TRAINING DEVELOPMENT SPECIALIST-C Work Phone: [facility] 10-02-2024 13:58-0400 Diastolic blood pressure 78 mm[Hg] Joaquina Bridenthal TRAINING DEVELOPMENT SPECIALIST-C Work Phone: [facility] 10-02-2024 13:58-0400 Heart rate 81 /min Joaquina Bridenthal TRAINING DEVELOPMENT SPECIALIST-C Work Phone: [facility] 10-02-2024 13:58-0400 Respiratory rate 17 /min Joaquina Bridenthal TRAINING DEVELOPMENT SPECIALIST-C Work Phone: [facility] 10-02-2024 13:58-0400 SaO2% (BldA) [Mass fraction] 100 % Joaquina Bridenthal TRAINING DEVELOPMENT SPECIALIST-C Work Phone: [facility] 10-02-2024 13:58-0400 Systolic blood pressure 121 mm[Hg] Joaquina Bridenthal TRAINING DEVELOPMENT SPECIALIST-C Work Phone: [facility] 10-02-2024 10:57-0400 Body height 162.56 cm Joaquina Bridenthal TRAINING DEVELOPMENT SPECIALIST-C Work Phone: [facility] 10-02-2024 10:57-0400 Body mass index (BMI) [Ratio] 29.3 kg/m2 Joaquina Bridenthal TRAINING DEVELOPMENT SPECIALIST-C Work Phone: [facility] 10-02-2024 10:57-0400 Body weight 77.6 kg Joaquina Bridenthal TRAINING DEVELOPMENT SPECIALIST-C Work Phone: [facility] 09-11-2024 10:00-0400 Body height 162.56 cm Joaquina Bridenthal TRAINING DEVELOPMENT SPECIALIST-C Work Phone: [facility] 09-11-2024 10:00-0400 Body mass index (BMI) [Ratio] 29 kg/m2 Joaquina Bridenthal TRAINING DEVELOPMENT SPECIALIST-C Work Phone: [facility] 09-11-2024 10:00-0400 Body weight 76.77 kg Joaquina Bridenthal TRAINING DEVELOPMENT SPECIALIST-C Work Phone: [facility] 09-11-2024 10:00-0400 Diastolic blood pressure 83 mm[Hg] Joaquina Bridenthal TRAINING DEVELOPMENT SPECIALIST-C Work Phone: [facility] 09-11-2024 10:00-0400 Systolic blood pressure 130 mm[Hg] Joaquina Bridenthal TRAINING DEVELOPMENT SPECIALIST-C Work Phone: [facility] 07-13-2024 10:42-0400 Body mass index (BMI) [Ratio] 27.3 kg/m2 Joaquina Bridenthal TRAINING DEVELOPMENT SPECIALIST-C Work Phone: [facility] 07-13-2024 10:42-0400 Body weight 72.12 kg Joaquina Bridenthal TRAINING DEVELOPMENT SPECIALIST-C Work Phone: [facility] 07-13-2024 10:42-0400 Diastolic blood pressure 92 mm[Hg] Joaquina Bridenthal TRAINING DEVELOPMENT SPECIALIST-C Work Phone: [facility] 07-13-2024 10:42-0400 Systolic blood pressure 138 mm[Hg] Joaquina Bridenthal TRAINING DEVELOPMENT SPECIALIST-C Work Phone: [facility] 06-29-2024 15:45-0500 Body temperature 97.8 [degF] Joaquina Bridenthal TRAINING DEVELOPMENT SPECIALIST-C Work Phone: [facility] 06-29-2024 15:45-0500 Diastolic blood pressure 63 mm[Hg] Joaquina Bridenthal TRAINING DEVELOPMENT SPECIALIST-C Work Phone: [facility] 06-29-2024 15:45-0500 Heart rate 63 /min Joaquina Bridenthal TRAINING DEVELOPMENT SPECIALIST-C Work Phone: [facility] 06-29-2024 15:45-0500 Respiratory rate 16 /min Joaquina Bridenthal TRAINING DEVELOPMENT SPECIALIST-C Work Phone: [facility] 06-29-2024 15:45-0500 SaO2% (BldA) [Mass fraction] 99 % Joaquina Bridenthal TRAINING DEVELOPMENT SPECIALIST-C Work Phone: [facility] 06-29-2024 15:45-0500 Systolic blood pressure 102 mm[Hg] Joaquina Bridenthal TRAINING DEVELOPMENT SPECIALIST-C Work Phone: [facility] 06-29-2024 12:02-0500 Body height 162.56 cm Joaquina Bridenthal TRAINING DEVELOPMENT SPECIALIST-C Work Phone: [facility] 06-29-2024 12:02-0500 Body mass index (BMI) [Ratio] 28 kg/m2 Joaquina Bridenthal TRAINING DEVELOPMENT SPECIALIST-C Work Phone: [facility] 06-29-2024 12:02-0500 Body weight 74 kg Joaquina Bridenthal TRAINING DEVELOPMENT SPECIALIST-C Work Phone: [facility] 06-25-2024 13:01-0500 Body mass index (BMI) [Ratio] 28.3 kg/m2 Joaquina Bridenthal TRAINING DEVELOPMENT SPECIALIST-C Work Phone: [facility] 06-25-2024 13:01-0500 Body weight 74.84 kg Joaquina Bridenthal TRAINING DEVELOPMENT SPECIALIST-C Work Phone: [facility] 06-25-2024 13:01-0500 Diastolic blood pressure 70 mm[Hg] Joaquina Bridenthal TRAINING DEVELOPMENT SPECIALIST-C Work Phone: [facility] 06-25-2024 13:01-0500 Systolic blood pressure 106 mm[Hg] Joaquina Bridenthal TRAINING DEVELOPMENT SPECIALIST-C Work Phone: [facility] 06-21-2024 10:50-0500 Body mass index (BMI) [Ratio] 28.8 kg/m2 Joaquina Bridenthal TRAINING DEVELOPMENT SPECIALIST-C Work Phone: [facility] 06-21-2024 10:50-0500 Body weight 76.31 kg Joaquina Bridenthal TRAINING DEVELOPMENT SPECIALIST-C Work Phone: [facility] 06-21-2024 10:50-0500 Diastolic blood pressure 77 mm[Hg] Joaquina Bridenthal TRAINING DEVELOPMENT SPECIALIST-C Work Phone: [facility] 06-21-2024 10:50-0500 Systolic blood pressure 124 mm[Hg] Joaquina Bridenthal TRAINING DEVELOPMENT SPECIALIST-C Work Phone: [facility] 03-26-2024 14:45-0500 Body height 161.3 cm Tia Mandela INSPECTOR CASING-FURNACE REPAIR MECHANIC Work Phone: [facility] 03-26-2024 14:45-0500 Body mass index (BMI) [Ratio] 28.42 kg/m2 Tia Mandela INSPECTOR CASING-FURNACE REPAIR MECHANIC Work Phone: [facility] 03-26-2024 14:45-0500 Body temperature 98.91 [degF] Tia Mandela INSPECTOR CASING-FURNACE REPAIR MECHANIC Work Phone: [facility] 03-26-2024 14:45-0500 Body weight 73.94 kg Tia Mandela INSPECTOR CASING-FURNACE REPAIR MECHANIC Work Phone: [facility] 03-26-2024 14:45-0500 Diastolic blood pressure 74 mm[Hg] Tia Mandela INSPECTOR CASING-FURNACE REPAIR MECHANIC Work Phone: [facility] 03-26-2024 14:45-0500 Heart rate 90 /min Tia Mandela INSPECTOR CASING-FURNACE REPAIR MECHANIC Work Phone: [facility] 03-26-2024 14:45-0500 Respiratory rate 20 /min Tia Mandela INSPECTOR CASING-FURNACE REPAIR MECHANIC Work Phone: [facility] 03-26-2024 14:45-0500 SaO2% (BldA) [Mass fraction] 98 % Tia Crystalela INSPECTOR CASING-FURNACE REPAIR MECHANIC Work Phone: [facility] 03-26-2024 14:45-0500 Systolic blood pressure 125 mm[Hg] Tia Mandela INSPECTOR CASING-FURNACE REPAIR MECHANIC Work Phone: [facility] 09-15-2023 13:07-0400 Body mass index (BMI) [Ratio] 27.74 kg/m2 Joaquina Bridenthal INSPECTOR CASING - FURNACE REPAIR MECHANIC Work Phone: [facility] [employer] 09-15-2023 13:07-0400 Body temperature 98.4 [degF] Joaquina Bridenthal INSPECTOR CASING - FURNACE REPAIR MECHANIC Work Phone: [facility] [employer] 09-15-2023 13:07-0400 Body weight 73.3 kg Joaquina Bridenthal INSPECTOR CASING - FURNACE REPAIR MECHANIC Work Phone: [facility] [employer] 09-15-2023 13:07-0400 Diastolic blood pressure 85 mm[Hg] Joaquina Bridenthal INSPECTOR CASING - FURNACE REPAIR MECHANIC Work Phone: [facility] [employer] 09-15-2023 13:07-0400 Heart rate 102 /min Joaquina Bridenthal INSPECTOR CASING - FURNACE REPAIR MECHANIC Work Phone: [facility] [employer] 09-15-2023 13:07-0400 Respiratory rate 18 /min Joaquina Bridenthal INSPECTOR CASING - FURNACE REPAIR MECHANIC Work Phone: [facility] [employer] 09-15-2023 13:07-0400 SaO2% (BldA) [Mass fraction] 97 % Joaquina Bridenthal INSPECTOR CASING - FURNACE REPAIR MECHANIC Work Phone: [facility] 09-15-2023 13:07-0400 Systolic blood pressure 129 mm[Hg] Joaquina Morales INSPECTOR CASING - FURNACE REPAIR MECHANIC Work Phone: [facility] 07-14-2023 07:36-0400 Body weight 75.75 kg Nancy Ordoñez APRN.FURNACE REPAIR MECHANIC Work Phone: [facility] 07-14-2023 07:36-0400 Diastolic blood pressure 82 mm[Hg] Nancy Ordoñez APRN.FURNACE REPAIR MECHANIC Work Phone: [facility] 07-14-2023 07:36-0400 Heart rate 80 /min Nancy Ordoñez APRN.FURNACE REPAIR MECHANIC Work Phone: [facility] 07-14-2023 07:36-0400 SaO2% (BldA) [Mass fraction] 98 % Nancy Ordoñez APRN.FURNACE REPAIR MECHANIC Work Phone: [facility] 07-14-2023 07:36-0400 Systolic blood pressure 126 mm[Hg] Nancy Ordoñez APRN.FURNACE REPAIR MECHANIC Work Phone: [facility] 06-16-2023 06:59-0500 Body weight 76.66 kg Nancy Ordoñez APRN.FURNACE REPAIR MECHANIC Work Phone: [facility] 06-16-2023 06:59-0500 Diastolic blood pressure 84 mm[Hg] Nancy Ordoñez APRN.FURNACE REPAIR MECHANIC Work Phone: [facility] 06-16-2023 06:59-0500 Systolic blood pressure 116 mm[Hg] Nancy Ordoñez APRN.FURNACE REPAIR MECHANIC Work Phone: [facility] 06-15-2023 07:35-0500 Body mass index (BMI) [Ratio] 29.21 kg/m2 Joaquina Osminal INSPECTOR CASING - FURNACE REPAIR MECHANIC Work Phone: [facility] [employer] 06-15-2023 07:35-0500 Body temperature 98.6 [degF] Joaquina Osminal INSPECTOR CASING - FURNACE REPAIR MECHANIC Work Phone: [facility] [employer] 06-15-2023 07:35-0500 Body weight 77.2 kg Joaquina Bridenthal INSPECTOR CASING - FURNACE REPAIR MECHANIC Work Phone: [facility] [employer] 06-15-2023 07:35-0500 Diastolic blood pressure 69 mm[Hg] Joaquina Bridenthal INSPECTOR CASING - FURNACE REPAIR MECHANIC Work Phone: [facility] [employer] 06-15-2023 07:35-0500 Heart rate 94 /min Joaquina Bridenthal INSPECTOR CASING - FURNACE REPAIR MECHANIC Work Phone: [facility] [employer] 06-15-2023 07:35-0500 Respiratory rate 18 /min Joaquina Bridenthal INSPECTOR CASING - FURNACE REPAIR MECHANIC Work Phone: [facility] [employer] 06-15-2023 07:35-0500 SaO2% (BldA) [Mass fraction] 98 % Joaquina Bridenthal INSPECTOR CASING - FURNACE REPAIR MECHANIC Work Phone: [facility] [employer] 06-15-2023 07:35-0500 Systolic blood pressure 112 mm[Hg] Joaquina Bridenthal INSPECTOR CASING - FURNACE REPAIR MECHANIC Work Phone: [facility] [employer] 05-16-2023 13:46-0500 Body mass index (BMI) [Ratio] 28.15 kg/m2 Joaquina Bridenthal INSPECTOR CASING - FURNACE REPAIR MECHANIC Work Phone: [facility] [employer] 05-16-2023 13:46-0500 Body temperature 98.1 [degF] Joaquina Bridenthal INSPECTOR CASING - FURNACE REPAIR MECHANIC Work Phone: [facility] [employer] 05-16-2023 13:46-0500 Body weight 74.39 kg Joaquina Bridenthal INSPECTOR CASING - FURNACE REPAIR MECHANIC Work Phone: [facility] [employer] 05-16-2023 13:46-0500 Diastolic blood pressure 89 mm[Hg] Joaquina Bridenthal INSPECTOR CASING - FURNACE REPAIR MECHANIC Work Phone: [facility] [employer] 05-16-2023 13:46-0500 Heart rate 98 /min Joaquina Bridenthal INSPECTOR CASING - FURNACE REPAIR MECHANIC Work Phone: [facility] [employer] 05-16-2023 13:46-0500 Respiratory rate 18 /min Joaquina Bridenthal INSPECTOR CASING - FURNACE REPAIR MECHANIC Work Phone: [facility] [employer] 05-16-2023 13:46-0500 SaO2% (BldA) [Mass fraction] 97 % Joaquina Bridenthal INSPECTOR CASING - FURNACE REPAIR MECHANIC Work Phone: [facility] [employer] 05-16-2023 13:46-0500 Systolic blood pressure 133 mm[Hg] Joaquina Bridenthal INSPECTOR CASING - FURNACE REPAIR MECHANIC Work Phone: [facility] [employer] 03-23-2023 09:29-0500 Body mass index (BMI) [Ratio] 25.92 kg/m2 Joaquina Bridenthal INSPECTOR CASING - FURNACE REPAIR MECHANIC Work Phone: [facility] [employer] 03-23-2023 09:29-0500 Body temperature 97.59 [degF] Joaquina Bridenthal INSPECTOR CASING - FURNACE REPAIR MECHANIC Work Phone: [facility] [employer] 03-23-2023 09:29-0500 Body weight 68.49 kg Joaquina Bridenthal INSPECTOR CASING - FURNACE REPAIR MECHANIC Work Phone: [facility] [employer] 03-23-2023 09:29-0500 Diastolic blood pressure 77 mm[Hg] Joaquina Bridenthal INSPECTOR CASING - FURNACE REPAIR MECHANIC Work Phone: [facility] [employer] 03-23-2023 09:29-0500 Heart rate 98 /min Joaquina Bridenthal INSPECTOR CASING - FURNACE REPAIR MECHANIC Work Phone: [facility] [employer] 03-23-2023 09:29-0500 Respiratory rate 18 /min Joaquina Bridenthal INSPECTOR CASING - FURNACE REPAIR MECHANIC Work Phone: [facility] [employer] 03-23-2023 09:29-0500 SaO2% (BldA) [Mass fraction] 99 % Joaquina Bridenthal INSPECTOR CASING - FURNACE REPAIR MECHANIC Work Phone: [facility] [employer] 03-23-2023 09:29-0500 Systolic blood pressure 116 mm[Hg] Joaquina Bridenthal INSPECTOR CASING - FURNACE REPAIR MECHANIC Work Phone: [facility] [employer] 11-29-2022 14:12-0400 Body height 162.6 cm Divya Muniz MD Work Phone: [facility] 11-29-2022 14:12-0400 Body weight 67.59 kg Divya Muniz MD Work Phone: [facility] 11-29-2022 14:12-0400 Diastolic blood pressure 68 mm[Hg] Divya Muniz MD Work Phone: [facility] 11-29-2022 14:12-0400 Systolic blood pressure 118 mm[Hg] Divya Muniz MD Work Phone: [facility] 10-20-2021 07:24-0400 Body height 163 cm Niharika Lee MD Work Phone: [facility] 10-20-2021 07:24-0400 Body weight 67.59 kg Niharika Lee MD Work Phone: [facility] 10-20-2021 07:24-0400 Diastolic blood pressure 64 mm[Hg] Niharika Lee MD Work Phone: [facility] 10-20-2021 07:24-0400 Systolic blood pressure 104 mm[Hg] Niharika Lee MD Work Phone: [facility] Encounters Encounter Date Encounter Type Care Provider Facility Start: 12-27-2024 ambulatory Joaquina Ainsley Faci lity:[facility] Start: 11-10-2024 End: 11-10-2024 ambulatory Joaquinazeinab Morales TRAINING DEVELOPMENT SPECIALIST-C Work Phone: -Laboratory Start: 11-10-2024 End: 11-10-[address] Isaura Song DO -Laboratory Work Phone: Start: 11-10-2024 End: 11-10-2024 ambulatory Isaura Song Facility:[facility] Start: 10-31-2024 End: 10-31-2024 Patient encounter procedure David Donnelly PA-C Work Phone: [facility] Comment on above: Contact dermatitis, unspecified contact dermatitis type, unspecified trigger (Primary Dx) Start: 10-31-2024 End: 10-31-2024 ambulatory JOAQUINA FUNMILAYO BRIDENTHAL Facility:[facility] Start: 10-11-2024 End: 10-11-2024 Patient encounter procedure Kristina Cruz NP-C -[facility] Work Phone: Start: 10-11-2024 End: 10-11-2024 ambulatory Joaquina Bridenthal TRAINING DEVELOPMENT SPECIALIST-C Work Phone: [facility] Work Phone: Start: 10-02-2024 End: 10-02-2024 Emergency department patient visit Joaquina Bridenthal TRAINING DEVELOPMENT SPECIALIST-C Work Phone: -Emergency Department Work Phone: Start: 09-11-2024 End: 09-11-[address] Isaura Song DO -[facility] Work Phone: Start: 09-11-2024 End: 09-11-2024 ambulatory Joaquina Bridenthal TRAINING DEVELOPMENT SPECIALIST-C Work Phone: [facility] Work Phone: Start: 07-13-2024 End: 07-13-[address] Fadumo Barreto MD -[facility] Work Phone: Start: 07-13-2024 End: 07-13-2024 ambulatory Joaquina Bridenthal Facility:[facility] Start: 07-12-2024 Encounter for other preprocedural examination Fadumo Barreto [facility] Start: 06-29-2024 ambulatory Joaquina Bridenthal Faci lity:[facility] Start: 06-29-2024 Non-patient / Non-visit Dr. Poonam Barreto MD -[facility] [place] Start: 06-29-2024 End: 06-29-2024 Admission to same day surgery center Dr. Fadumo Barreto MD -[facility] Start: 06-29-2024 End: 06-29-2024 ambulatory Joaquina Bridenthal TRAINING DEVELOPMENT SPECIALIST-C Work Phone: [facility] Work Phone: Start: 06-28-2024 End: 06-28-2024 ambulatory Joaquina Bridenthal TRAINING DEVELOPMENT SPECIALIST-C Work Phone: [facility] Work Phone: Start: 06-28-2024 End: 06-28-2024 Patient encounter procedure Nikole Chang CNM -[facility] Work Phone: Start: 06-28-2024 End: 06-28-2024 ambulatory Joaquina Bridenthal Facility:[facility] Start: 06-25-2024 End: 06-25-[address] Isaura Song DO [facility] Work Phone: Start: 06-25-2024 End: 06-25-2024 ambulatory Joaquina Bridenthal Facility:[facility] Start: 06-25-2024 End: 06-25-2024 ambulatory Joaquina Bridenthal TRAINING DEVELOPMENT SPECIALIST-C Work Phone: [facility] Work Phone: Start: 06-25-2024 End: 06-25-[address] Isaura Song DO -Laboratory Work Phone: Start: 06-25-2024 End: 06-25-2024 ambulatory Joaquina Bridenthal Facility:[facility] Start: 06-23-2024 End: 06-23-2024 ambulatory Joaquina Bridenthal TRAINING DEVELOPMENT SPECIALIST-C Work Phone: [facility] Work Phone: Start: 06-23-2024 End: 06-23-2024 Patient encounter procedure Nikole Chang CNM -Laboratory Work Phone: Start: 06-23-2024 End: 06-23-2024 ambulatory Joaquina Bridenthal Facility:[facility] Start: 06-21-2024 End: 06-21-2024 ambulatory Joaquina Bridenthal TRAINING DEVELOPMENT SPECIALIST-C Work Phone: [facility] Work Phone: Start: 06-21-2024 End: 06-21-2024 Patient encounter procedure Nikole Chang CNM -Lab, [facility] Start: 06-21-2024 End: 06-21-2024 Patient encounter procedure Nikole Chang CNM -[facility] Work Phone: Start: 06-21-2024 End: 06-21-2024 ambulatory Joaquina Bridenthal Facility:[facility] Start: 06-21-2024 End: 06-21-2024 ambulatory Joaquina [facility] Facility:[facility] Start: 05-19-2024 End: 05-19-[address] Isaura Song DO -Laboratory Work Phone: Start: 05-19-2024 End: 05-19-2024 ambulatory Isaura Song Facility:[facility] Start: 05-17-2024 End: 05-17-[address] Isaura Song DO -Laboratory Work Phone: Start: 05-17-2024 End: 05-17-2024 [facility] Facility[facility] Start: 05-08-2024 End: 05-08-2024 Patient encounter procedure Samanta Jaramillo TRAINING DEVELOPMENT SPECIALIST-C -Laboratory Work Phone: Start: 05-08-2024 End: 05-08-2024 ambulatory [facility] Facility:[facility] Start: 03-26-2024 End: 03-26-2024 Office outpatient new 45 minutes Tia Shruthi INSPECTOR CASING-FURNACE REPAIR MECHANIC Work Phone: [facility] Comment on above: Contact dermatitis, unspecified contact dermatitis type, unspecified trigger (Primary Dx) Start: 03-25-2024 End: 03-25-2024 Patient encounter procedure Samanta Jaramillo TRAINING DEVELOPMENT SPECIALIST-C -Laboratory Work Phone: Start: 03-25-2024 End: 03-25-2024 ambulatory Joaquina [facility] Facility:[facility] Start: 03-07-2024 End: 03-07-2024 Patient encounter procedure Samanta Jaramillo TRAINING DEVELOPMENT SPECIALIST-C -Laboratory Work Phone: Start: 03-07-2024 End: 03-07-2024 ambulatory Joaquina [facility] Facility:[facility] Start: 02-23-2024 End: 02-23-2024 [facility] Start: 02-23-2024 End: 02-23-2024 ambulatory Joaquina [facility] Facility:[facility] Start: 02-21-2024 End: 02-21-2024 ambulatory [facility] Facility:[facility] Start: 02-16-2024 End: 02-16-2024 ambulatory No Primary Care Physician Facility:[facility] Start: 02-15-2024 End: 02-15-2024 ambulatory [facility] Facility:[facility] Start: 02-13-2024 Encounter for gynecological examination (general) (routine) without abnormal findings [facility] Start: 02-13-2024 End: 02-13-2024 ambulatory [facility] Facility:[facility] Start: 02-13-2024 End: 02-13-2024 ambulatory [facility] Facility:[facility] Start: 09-15-2023 End: 09-15-2023 Office outpatient visit 15 minutes Joaquinazeinab Castillotophercaren JACINTO Pyle CNP Work Phone: [facility] Comment on above: Anxiety and depressi on (Primary Dx); Skin sensation disturbance Start: 09-15-2023 End: 09-15-2023 ambulatory JO[facility]QUINA [facility] Start: 07-14-2023 End: 07-14-2023 Patient encounter procedure Nancy Ordoñez APRN.CNP Work Phone: OB/Gynecology Comment on above: PCOS (polycystic ova kenneth syndrome) (Primary Dx); Irregular menses; Anxiety and depression; History of bulimia; History of anorexia nervosa; Provided repeat prescription for oral contraceptive; Overweight with body mass index (BMI) of 29 to 29.9 in adult Start: 06-16-2023 End: 06-16-2023 Patient encounter procedure Nancy Ordoñez APRN.CNP Work Phone: OB/Gynecology Comment on above: PCOS (polycystic ova kenneth syndrome) (Primary Dx); Elevated LDL cholesterol level; IFG (impaired fasting glucose); Irregular menses; Anxiety and depression; History of bulimia; History of anorexia nervosa; Overweight with body mass index (BMI) of 29 to 29.9 in adult Start: 06-15-2023 End: 06-15-2023 Office outpatient visit 15 minutes Joaquina Bridenthal INSPECTOR CASING - FURNACE REPAIR MECHANIC Work Phone: [facility] Comment on above: Anxiety and depressi on (Primary Dx); PCOS (polycystic ovarian syndrome) Start: 06-15-2023 End: 06-15-2023 Office outpatient visit 25 minutes Joaquina Bridenthal INSPECTOR CASING - FURNACE REPAIR MECHANIC Work Phone: [facility] Comment on above: Anxiety and depressi on (Primary Dx); PCOS (polycystic ovarian syndrome) Start: 06-15-2023 End: 06-15-2023 [facility] Start: 05-16-2023 End: 05-16-2023 Office outpatient visit 15 minutes Joaquina Bridenthal INSPECTOR CASING - FURNACE REPAIR MECHANIC Work Phone: [facility] Comment on above: Anxiety and depressi on (Primary Dx); Weight gain Start: 05-16-2023 End: 05-16-2023 Office outpatient visit 25 minutes Joaquina Bridenthal INSPECTOR CASING - FURNACE REPAIR MECHANIC Work Phone: [facility] Comment on above: Anxiety and depressi on (Primary Dx); Weight gain Start: 05-16-2023 End: 05-16-2023 [facility] Start: 03-23-2023 End: 03-23-2023 Patient encounter procedure Joaquina Bridenthal INSPECTOR CASING - FURNACE REPAIR MECHANIC Work Phone: [facility] [employer] Work Phone: Start: 03-23-2023 End: 03-23-2023 Periodic preventive med est patient 18-39 yrs Joaquina Bridenthal INSPECTOR CASING - FURNACE REPAIR MECHANIC Work Phone: [facility] Comment on above: Annual physical exam (Primary Dx); Screening for deficiency anemia; Screening for cholesterol level; Anxiety and depression Start: 03-23-2023 End: 03-23-2023 ambulatory [facility] Start: 03-23-2023 End: 03-23-2023 Encounter for general adult medical examination without abnormal findings [facility] Start: 03-08-2023 End: 03-08-2023 ambulatory [facility] Start: 11-29-2022 End: 11-29-2022 Patient encounter procedure Divya Muniz MD Work Phone: OB/Gynecology Comment on above: Encounter for gyneco logical examination (general) (routine) without abnormal findings (Primary Dx); PCOS (polycystic ovarian syndrome) Start: 11-29-2022 End: 11-29-2022 Patient encounter status Divya Muniz MD Work Phone: [facility] Start: 09-27-2022 Refill Rama palomo APRN.CNM Work Phone: OB/Gynecology Comment on above: Refill Request; Refi ll Request Start: 06-30-2022 ambulatory Niharika Ramirez Work Phone: OB/Gynecology Comment on above: Control Start: 05-20-2022 Telephone encounter Niharika portillo MD Work Phone: OB/Gynecology Comment on above: Orders Start: 04-30-2022 ambulatory Niharika Ramirez Work Phone: OB/Gynecology Comment on above: Period Update Start: 04-12-2022 ambulatory Niharika Ramirez Work Phone: OB/Gynecology Comment on above: Period/ Giovanna t Update Start: 03-30-2022 Telephone encounter Niharika portillo MD Work Phone: OB/Gynecology Comment on above: Follow Up Start: 03-30-2022 End: 03-30-2022 ambulatory Niharika Lee MD Work Phone: OB/Gynecology Comment on above: PCOS (polycystic ova kenneth syndrome) (Primary Dx); Missed menses Start: 03-30-2022 End: 03-30-2022 Telemedicine consultation with patient Niharika Lee MD Work Phone: [facility] Start: 03-22-2022 Telephone encounter Niharika portillo MD Work Phone: OB/Gynecology Comment on above: Patient Question Start: 03-19-2022 Telephone encounter Niharika portillo MD Work Phone: OB/Gynecology Comment on above: Patient Question Start: 10-28-2021 ambulatory Divya Muniz MD Work Phone: [facility] Start: 10-28-2021 Manual pelvic examination Junior Muniz MD Work Phone: OB/Gynecology Comment on above: Question regarding P ELVIC US WHI Start: 10-23-2021 End: 10-23-2021 ambulatory Divya Muniz MD Work Phone: OB/Gynecology Comment on above: 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 Start: 10-23-2021 End: 10-23-2021 Patient encounter procedure Divya Muniz MD Work Phone: [facility] Start: 10-20-2021 End: 10-20-2021 Patient encounter procedure Niharika Lee MD Work Phone: OB/Gynecology Comment on above: Encounter for gyneco logical examination without abnormal finding (Primary Dx); Encounter for screening for malignant neoplasm of cervix; Irregular intermenstrual bleeding Start: 10-20-2021 End: 10-20-2021 Patient encounter status Niharika Lee MD Work Phone: OB/Gynecology Procedures Date Procedure Procedure Detail Performing Clinician Start: 11-10-2024 Serum progesterone measurement Joaquina Morales TRAINING DEVELOPMENT SPECIALIST-C Work Phone: Comment on above: Follicular phase 0.1 - 0.9 Luteal phase 1.8 - 23.9 Ovulation phase 0.1 - 12.0 First trimester 11.0 - 44.3 Second trimester 25.4 - 83.3 Third trimester 58.7 - 214.0 Postmenopausal 0.0 - 0.1Performed at: [facility] [id number], [place] [id number] Director: Neil Henry PhD, Phone: [phone] Start: 10-02-2024 Transvaginal echography Joaquina Bridenthal TRAINING DEVELOPMENT SPECIALIST-C Work Phone: Start: 06-29-2024 Dilation and curetta ge of uterus Joaquina Bridenthal TRAINING DEVELOPMENT SPECIALIST-C Work Phone: Start: 06-28-2024 Transvaginal obstetr ic ultrasonography Joaquina Bridenthal TRAINING DEVELOPMENT SPECIALIST-C Work Phone: Start: 06-21-2024 Urine culture Joaquina B ridenthal TRAINING DEVELOPMENT SPECIALIST-C Work Phone: Start: 03-23-2023 Lipid 1996 panel - S yin or Plasma Joaquina Bridenthal INSPECTOR CASING - FURNACE REPAIR MECHANIC Work Phone: Start: 10-20-2021 Urine test visual color cmprsn meths Niharika Lee MD Work Phone: Start: 10-20-2021 Microscopic observat ion [Identifier] in Cervix by Cyto stain Joaquina Bridenthal INSPECTOR CASING - FURNACE REPAIR MECHANIC Work Phone: Start: 06-15-2016 Adult depression scr eening assessment Niharika Lee MD Work Phone: Plan of Treatment Date Care Activity Detail Author Start: 2057 RSV Immunization age d 60 or older (1 - 1-dose 60+ series) RSV Immunization aged 60 or older (1 - 1-dose 60+ series) [facility] Start: 07-07-2047 Zoster Vaccines (1 o f 2) Zoster Vaccines (1 of 2) [facility] Start: 03-23-2028 Lipid panel Lipid Panel [facility] Start: 12-24-2024 Influenza vaccination Influenza Vacc ine (#1) [facility] Start: 10-20-2024 PAP TESTING PAP TESTING [facility] Start: 10-20-2024 Screening for malign ant neoplasm of cervix [facility] Start: 10-02-2024 [facility] Start: 06-29-2024 Ambulation without limitation [facility] Start: 06-29-2024 Medical regimen orde rs management [facility] Start: 06-29-2024 Medication education [facility] Start: 06-29-2024 Patient discharge [facility] Start: 06-29-2024 Procedure discontinued [facility] Start: 06-29-2024 Taking patient vital signs [facility] Start: 06-29-2024 Vital signs measurements [facility] Start: 06-29-2024 [facility] Start: 06-29-2024 Anesthesia incomplete/missed ANES INCOMPL/MISSED AB PX [facility] Start: 06-29-2024 Tx incomplete aborti on any trimester surgical TREATMENT OF MISCARRIAGE [facility] Start: 03-23-2024 COVID-19 Vaccine (#1) COVID-19 Vacci ne (#1) [facility] Comment on above: Postponed from 01/06 (Patient Refused) Start: 03-23-2024 COVID-19 Vaccine ( season) COVID-19 Vaccine ( season) [facility] Comment on above: Postponed from 12/24 (Patient Refused) Start: 03-23-2024 DTaP/Tdap/Td Vaccine s (7 - Td or Tdap) DTaP/Tdap/Td Vaccines (7 - Td or Tdap) [facility] Comment on above: Postponed from 11/17 (Patient Refused) Start: 03-23-2024 Hepatitis C screening Hepatitis C Sc reening [facility] Comment on above: Postponed from 07/06 (Patient Refused) Start: 03-23-2024 HIV screening HIV Screening [facility] Comment on above: Postponed from 07/06 (Patient Refused) Start: 03-13-2024 End: 03-13-2024 Patient encounter procedure 03/13/2024 7:40 AM EST Office Visit [facility] [address] [place] [address] Joaquina Morales, INSPECTOR CASING - FURNACE REPAIR MECHANIC [address] [place] [address] [facility] Start: 12-25-2023 Covid-19 Vaccine ( season) Covid-19 Vaccine ( season) [facility] Start: 12-25-2023 Influenza vaccination Influenz a Vaccine (Season Ended) [facility] Start: 10-23-2023 Influenza vaccination Influenza Vacc ine (#1) [facility] Comment on above: Postponed from 12/24 (Patient Refused) Start: 09-21-2023 Depression Monitoring Depression Mon itoring [facility] Start: 09-21-2023 Depresssion Monitoring Depresssion M onitoring [facility] Start: 09-14-2023 End: 09-14-2023 Patient encounter procedure 09/14/2023 1:00 PM EDT Office Visit [facility] [address] [place] [address] [place] [address] Joaquina Morales, INSPECTOR CASING - FURNACE REPAIR MECHANIC [address] [place] [address] [facility] Start: 06-20-2023 End: 06-20-2023 Patient encounter procedure 06/20/2023 2:00 PM EST Office Visit [facility] [address] [place] [address] Fabian Moralesca, INSPECTOR CASING - FURNACE REPAIR MECHANIC [address] [place] [address] [facility] Start: 06-15-2023 End: 06-15-2023 Patient encounter procedure 06/15/2023 7:40 AM EST Office Visit [facility] [address] [place] [address] [place] [address] BridenthFabian fabianca, INSPECTOR CASING - FURNACE REPAIR MECHANIC [address] [place] [address] [place] [address] [facility] Start: 04-25-2023 Depression Assessment Depression Ass [facility] Start: 03-23-2023 End: 03-23-2024 CBC panel - Blood by Automated count CBC Lab Routine Screening for deficiency anemia Annual physical exam Expected: 03/23/2023 (Approximate), Expires: 03/23/2024 [facility] Comment on above: Expected: 03/23/2023 (Approximate), Expires: 03/23/2024 Start: 03-23-2023 End: 03-23-2024 Comprehensive metabolic 1998 panel - Serum or Plasma Comprehensive metabolic panel Lab Routine Annual physical exam Expected: 03/23/2023 (Approximate), Expires: 03/23/2024 [facility] Work Phone: Comment on above: Expected: 03/23/2023 (Approximate), Expires: 03/23/2024 Start: 03-23-2023 End: 03-23-2024 Lipid 1996 panel - Serum or Plasma Lipid panel Lab Routine Screening for cholesterol level Annual physical exam Expected: 03/23/2023 (Approximate), Expires: 03/23/2024 [facility] Comment on above: Expected: 03/23/2023 (Approximate), Expires: 03/23/2024 Start: 12-24-2022 Covid-19 Vaccine ( season) Covid-19 Vaccine ( season) [facility] Start: 12-24-2022 Influenza vaccination [facility] Start: 05-20-2022 End: 07-20-2022 Progesterone [Mass/volume] in Serum or Plasma PROGESTERONE BLD Lab Routine Anovulation Expected: 05/20/2022, Expires: 07/20/2022 [facility] Work Phone: Comment on above: Expected: 05/20/2022 , Expires: 07/20/2022 Start: 04-25-2022 DEPRESSION ASSESSMENT DEPRESSION ASS [facility] Start: 04-10-2022 PAP TESTING PAP TESTING [facility] Start: 03-19-2022 End: 05-19-2022 Choriogonadotropin.beta subunit [Units/volume] in Serum or Plasma HCG QUANTITATIVE Lab Routine Missed menses Expected: 03/19/2022, Expires: 05/19/2022 [facility] Work Phone: Comment on above: Expected: 03/19/2022 , Expires: 05/19/2022 Start: 12-24-2021 Influenza vaccination [facility] Start: 10-20-2021 End: 12-20-2021 Thyrotropin [Units/volume] in Serum or Plasma [facility] Work Phone: Comment on above: Expected: 10/20/2021 , Expires: 12/20/2021 Start: 04-25-2021 DEPRESSION ASSESSMENT DEPRESSION ASS ESSMENT [facility] Start: 10-23-2020 COVID-19 VACCINE (2 - Booster for Randy series) COVID-19 VACCINE (2 - Booster for Randy series) [facility] Start: 11-18-2019 Urine microalbumin profile [facility] Start: 06-15-2017 Adult depression screening assessment DEPRESSION SCREENING [facility] Start: 07-07-2015 HEPATITIS C SCREENING HEPATITIS C [facility] Start: 07-07-2015 Hepatitis C screening Hepatitis C [facility] Start: 07-07-2015 HIV SCREENING HIV SCREENING [facility] Start: 07-07-2015 HIV screening HIV Screening [facility] Start: 07-07-2011 PEDS TO ADULT TRANSITION ANNUAL ASSESSMENT PEDS TO ADULT TRANSITION ANNUAL ASSESSMENT [facility] Start: 2009 PEDS TO ADULT TRANSITION INITIAL DISCUSSION PEDS TO ADULT TRANSITION INITIAL DISCUSSION [facility] Start: 07-07-2007 MENINGOCOCCAL B: Consider based on risk (1 of 2 - Risk Bexsero 2-dose series) MENINGOCOCCAL B: Consider based on risk (1 of 2 - Risk Bexsero 2-dose series) [facility] Start: 07-07-2003 Pneumococcal Vaccine : Pediatrics (0 to 5 Years) and At-Risk Patients (6 to 64 Years) (1 of 2 - PCV) Pneumococcal Vaccine: Pediatrics (0 to 5 Years) and At-Risk Patients (6 to 64 Years) (1 of 2 - PCV) [facility] Start: 1997 Lipid panel Lipid Panel [facility] PAP FLUID CERVICAL SCREENING PAP FLUID CERVICAL SCREENING Lab Routine Encounter for screening for malignant neoplasm of cervix 10/20/2021 8:07 AM EDT [facility] Work Phone: Patient Education ED Dysfunction al Uterine Bleeding [facility] Work Phone: Patient referral [facility] Work Phone: PELVIC US WHI PELVIC US WHI An c Imaging Routine Irregular intermenstrual bleeding Ordered: 10/20/2021 [facility] Work Phone: Comment on above: Ordered: 10/20/2021 Serum progesterone measurement [facility] Immunizations Immunization Date Immunization Notes Care Provider Dave cabrera 08-28-2020 Randy SARS-CoV-2 Vaccination Joaquinazeinab Castilloidris INSPECTOR CASING - FURNACE REPAIR MECHANIC Work Phone: [facility] 06-15-2016 influenza, injectabl e, quadrivalent, contains preservative Niharika Lee MD Work Phone: [facility] 06-15-2016 influenza virus vacc ine, unspecified formulation Joaquina Castilloidris INSPECTOR CASING - FURNACE REPAIR MECHANIC Work Phone: [facility] 11-09-2013 meningococcal polysaccharide (groups A, C, Y and W-135) diphtheria toxoid conjugate vaccine (MCV4P) Niharika Lee MD Work Phone: [facility] 04-16-2013 human papilloma viru s vaccine, quadrivalent Niharika Lee MD Work Phone: [facility] 12-27-2012 human papilloma viru s vaccine, quadrivalent Niharika Lee MD Work Phone: [facility] 11-18-2012 human papilloma viru s vaccine, quadrivalent Niharika Lee MD Work Phone: [facility] 11-17-2009 Meningococcal, MCV4, unspecified conjugate formulation(groups A, C, Y and W-135) Niharika Lee MD Work Phone: [facility] 11-17-2009 tetanus toxoid, redu liliam diphtheria toxoid, and acellular pertussis vaccine, adsorbed Niharika Lee MD Work Phone: [facility] 12-10-2008 varicella virus vaccine Hemal Lee MD Work Phone: [facility] 2004 poliovirus vaccine, inactivated Niharika Lee MD Work Phone: [facility] Work Phone: 10-20-2003 measles, mumps and rubella virus vaccine Niharika Lee MD Work Phone: [facility] Work Phone: 09-01-2003 diphtheria, tetanus toxoids and acellular pertussis vaccine Niharika Lee MD Work Phone: [facility] Work Phone: 12-25-1998 DTaP-Haemophilus influenzae type b conjugate vaccine Niharika Lee MD Work Phone: [facility] 12-25-1998 poliovirus vaccine, inactivated Niharika Lee MD Work Phone: [facility] 10-02-1998 varicella virus vaccine Hemal Lee MD Work Phone: [facility] 07-10-1998 measles, mumps and rubella virus vaccine Niharika Lee MD Work Phone: [facility] 03-18-1998 hepatitis B vaccine, pediatric or pediatric/adolescent dosage Niharika Lee MD Work Phone: [facility] 1997 DTaP-Haemophilus influenzae type b conjugate vaccine Niharika Lee MD Work Phone: [facility] 1997 poliovirus vaccine, inactivated Niharika Lee MD Work Phone: [facility] 1997 DTaP-Haemophilus influenzae type b conjugate vaccine Niharika Lee MD Work Phone: [facility] 1997 poliovirus vaccine, inactivated Niharika Lee MD Work Phone: [facility] 1997 DTaP-Haemophilus influenzae type b conjugate vaccine Niharika Lee MD Work Phone: [facility] 1997 hepatitis B vaccine, pediatric or pediatric/adolescent dosage Niharika Lee MD Work Phone: [facility] 1995 poliovirus vaccine, inactivated Niharika Lee MD Work Phone: [facility] 1995 hepatitis B vaccine, pediatric or pediatric/adolescent dosage Niharika Lee MD Work Phone: [facility] Payers Date Payer Category Payer Self-pay 2022 Blue Cross Blue Shield BLUE ACCE SS PPO Member Subscriber Plan / Payer (Effective 2022-Present) Name: KAYLEIGH CONTIYUDITH Daugherty Relation to Subscriber: Spouse Name: KAYLA CONTI Date of : 1991 (Home) Address: [address] [id number] Payer ID: [id number] (NAIC) Type: PPO Address: [place] [id number] 2022 Blue Cross Blue [facility] [id number] .[id number] 5 2022 Unknown [id number] 2022 Unknown [id number] 2021 Unknown MMO MMO SUPERMED PLUS [id number] 2021-Present [phone] [address] [place] [address] O [id number] .2.7.3.958029.315 2021 Unknown [id number]. 1.13.159 .2.7.3.841916.315 Unknown [id number] 2.16.840.1.236152.3.579 .2.462 Unknown [id number] 2.16.840.1.890685.3.579 .2.462 Unknown [id number] 2.16.840.1.298111.3.579 .2.462 Unknown [id number] 2.16.840.1.269081.3.579 .2.462 Unknown [id number] 2.16.840.1.196635.3.579 .2.462 Unknown [id number] 2.16.840.1.563219.3.579 .2.462 Unknown [id number] 2.16.840.1.866991.3.579 .2.462 Unknown [id number] 2.16.840.1.099415.3.579 .2.462 Unknown [id number] 2.16.840.1.114852.3.579 .2.462 Unknown [id number] 2.16.840.1.384690.3.579 .2.462 Unknown [id number] 2.16.840.1.526384.3.579 .2.462 Unknown [id number] 2.16.840.1.776078.3.579 .2.462 Unknown [id number] 2.16.840.1.063280.3.579 .2.462 Unknown [id number] 2.16.840.1.463430.3.579 .2.462 Unknown [id number] 2.16.840.1.583767.3.579 .2.462 Unknown [id number] 2.16.840.1.694739.3.579 .2.462 Unknown [id number] 2.16.840.1.500041.3.579 .2.462 Unknown [id number] 2.16.840.1.993591.3.579 .2.462 Unknown [id number] 2.16.840.1.758851.3.579 .2.462 Unknown [id number] 2.16.840.1.623671.3.579 .2.462 Unknown [id number] 2.16.840.1.310974.3.579 .2.462 Unknown [id number] 2.16.840.1.783416.3.579 .2.462 Unknown [id number] 2.16.840.1.814107.3.579 .2.462 Unknown [id number] 2.16.840.1.352799.3.579 .2.462 Unknown [id number] 2.16.840.1.909657.3.579 .2.462 Unknown [id number] 2.16.840.1.578641.3.579 .2.462 Social History Date Type Detail Facility Start: 12-02-2021 End: 10-02-2024 Tobacco smoking status [facility] Never smoked tobacco [facility] Work Phone: Start: 10-20-2021 End: 07-14-2023 Alcohol intake Current drinker of alcohol (finding) [facility] Start: 09-07-2019 History SDOH Alcohol Frequency 3 [facility] Start: 09-07-2019 History SDOH Alcohol Std Drinks 1 [facility] Start: 09-07-2019 History SDOH Alcohol Binge 2 [facility] Start: 09-07-2019 History SDOH Social Connections Phone 5 [facility] Start: 09-07-2019 History SDOH Social Connections Living 7 [facility] Start: 09-07-2019 History SDOH Physica l Activity DPW 4 [facility] Start: 09-07-2019 History SDOH Physica l Activity MPS 6 [facility] Start: 09-07-2019 Education 14 [facility] Start: 1995 Sex Assigned At Female C [facility] Start: 10-10-2021 End: 03-20-2022 Exposure to SARS-CoV-2 (event) Not sure [facility] Start: 12-02-2021 End: 03-26-2024 Tobacco use and exposure Smokeless tobacco non-user [facility] Start: 09-07-2019 End: 11-29-2022 History of Social function [facility] Start: 09-07-2019 End: 11-29-2022 Social connection and isolation panel [facility] Do you belong to any clubs or organizations such as mormon groups, unions, fraternal or athletic groups, or school groups? Yes [facility] Are you now , , , , never or living with a partner? Never [facility] How often to you hav e a drink containing alcohol? 2-4 times a month [facility] How many standard dr inks containing alcohol do you have on a typical day? 1 or 2 [facility] How often do you hav e 6 or more drinks on 1 occasion? Less than monthly [facility] How hard is it for y ou to pay for the very basics like food, housing, medical care, and heating Not very hard [facility] Do you feel stress - tense, restless, nervous, or anxious, or unable to sleep at night because your mind is troubled all the time - these days [OSQ] Rather much [facility] (I/We) worried wheth er (my/our) food would run out before (I/we) got money to buy more. Never true [facility] In the past 12 month s, has lack of transportation kept you from medical appointments or from getting medications? No [facility] In the past 12 month s, was there a time when you were not able to pay the mortgage or rent on time? No [facility] Start: 10-16-2021 Gender identity Identifies as female gender (finding) [facility] Start: 10-16-2021 Sexual orientation Heterosexua l (finding) [facility] Start: 03-08-2023 Tobacco use and exposure User of smokeless tobacco [facility] History of tobacco use Chews Tobacco [facility] Start: 03-08-2023 Tobacco Comment Nicotine pouch, [facility] Start: 03-08-2023 Alcohol Comment occ. [facility] Start: 03-26-2024 Alcoholic beverage intake Ex-drinker (finding) [facility] Work Phone: Start: 1995 Sex assigned at Not on file [facility] Work Phone: Start: 06-29-2024 End: 07-10-2024 Sex Female (finding) [facility] NEGATED: Highlighted row Not [facility] Goals Date Patient Goal Desired Activity /State Functional Status Date Assessment Result Facility 11-12-2014 Are you deaf, or do you have serious difficulty hearing No 11/12/2014 1:26 PM EDT Ines Lee MA No [facility] 11-12-2014 Are you blind, or do you have serious difficulty seeing, even when wearing glasses No 11/12/2014 1:26 PM EDT Ines Lee MA No [facility] 11-12-2014 Do you have serious difficulty walking or climbing stairs No 11/12/2014 1:26 PM EDT Ines Lee MA No [facility] 11-12-2014 Do you have difficul ty dressing or bathing No 11/12/2014 1:26 PM EDT Ines Lee MA [facility] 11-12-2014 Because of a physica l, mental, or emotional condition, do you have difficulty doing errands alone such as visiting a physician's office or shopping No 11/12/2014 1:26 PM EDT Ines Lee MA [facility] Mental Status Date Assessment Result Facility 06-29-2024 Cognitive function Voice/Name [facility] Work Phone: 11-12-2014 Because of a physica l, mental, or emotional condition, do you have serious difficulty concentrating, remembering, or making decisions No 11/12/2014 1:26 PM EDT Ines Lee MA No [facility] Clinical Notes 11-27-2012 to 10-31-2024 Patient InstructionsSDavid [...] 11:53 AM 10/31/24 documented in this encounter [facility] 10-31-2024 Note HNO ID: [id number] Author: DAVID DONNELLY PA-C Service: ? Author Type: Physician Adoption Worker Type: Progress Notes Filed: 10/31/2024 13:10 Note Text: PATIENT NAME: David Conit DATE OF : 1995 TODAYS' DATE: 10/31/2024 [...] by mouth every morning. PNV/iron/folic acid ( FJLBYEI-AJEE-AI ORAL) Take 1 tablet by mouth once [...] HENT: Head: Normocephalic and atraumatic. Mouth/Throat: Lips: [place]. No lesions. Mouth: No oral lesions. Dentition: [...] air entry. Lymphadenopathy: (more content not included)... [facility] 10-31-2024 History of Presen t illness Narrative [...] by mouth every morning. PNV/iron/folic acid ( VIBWOQJ-URTG-RM ORAL) Take 1 tablet by mouth once [...] HENT: Head: Normocephalic and atraumatic. Mouth/Throat: Lips: [place]. No lesions. Mouth: No oral lesions. Dentition: [...] which included preparing to see the patient, khqj-oq-euvg patient care, completing clinical documentation, obtaining and/or reviewing separately obtained history, performing a medically appropriate examination, counseling and educating the patient/family/caregiver, ordering medications, tests, or procedures, and communicating results to the patient/family/caregiver. documented in this encounter [facility] 10-02-2024 Radiology Diagnostic study note [facility] Imaging Services [address] [place] [id number] Transvaginal Non- MR#: [id number] Acct: [id number] Name: DAVID CONTI Rep #: [id number] 5 : 1995 F 29 From: Pa Dewitt MD PCP: Joaquina Morales NP-Ekta Status: R EG ER Study:Transvaginal Non- Date of Exam: 10/02/24 Exam# [id number] Ordering Dr: Benito Terry DO PROCEDURE: TRANSVAGINAL [...] US/Transvaginal Non- IMPRESSION: Unremarkable examination. Reading Location: [facility] CC: TRAINING DEVELOPMENT SPECIALIST-C Joaquina Morales; Dr. Benito Terry, DO ~ Live Out Nanny: Signed [facility] 09-11-2024 Evaluation note Diagnosis Onset Date Resolution Infertility acute September 11 9:47am Missed acute September 11, 2024 9:47am PCOS (polycystic ovarian syndrome) acute September 11, 2024 9:47am Abnormal uterine bleeding acute October 11, 2024 10:14am Infertility acute October 11 10:14am [facility] Work Phone: 1(257) 710-141303-07-2025 Consult note [facility] Medical Records Department [address] [place] [address] Pre-Anesthesia Evaluation 06/29/24 1152 MR#: [id number] Acct: [id number] Name: DAVID CONTI Rep #:[id number] 8 : 1995 28 From: Bay Solares MD PCP: Joaquina Morales TRAINING DEVELOPMENT SPECIALISTEdenilsonC Status:R EG [facility] Y Race: C Location: [place] [address] ASA Classification* ASA Classification ASA Classification: 2 [...] 02/15/24 07:05 01/24 07/16 COAG HCG, Quant 81773 mIU/mL (<9 non-preg) H 06/25/24 09:25 Urine Test Negative Negative 10/28/15 09:50 10/28/15 Pre-Assessment Diagnosis/Proposed Procedure Planned Operative Procedure(s): SUCTION D&C Anesthesia History Anesthesia History - cloth printing inspector: Anesthesia History - cloth printing inspector Hx Hospitalization No 06/28/24 15:22 Any Problems [...] take am of surgery PONV PONV - cloth printing inspector: PONV - cloth printing inspector Female Yes 06/28/24 15:22 HX of Motion [...] 06/28/24 16:33 Respiratory Assessment Respiratory Assessment - cloth printing inspector: Respiratory Tract Infection Hx - cloth printing inspector Hx Respiratory Tract Infection No 06/28/24 15:22 STOP Sleep Apnea STOP Sleep Apnea - cloth printing inspector: STOP Sleep Apnea - cloth printing inspector Hx Hypertension No 06/28/24 15:22 Hx Sleep [...] than talking or can be heard through closeddoors)? Tobacco Use History Tobacco Use History - cloth printing inspector: Tobacco Use History - cloth printing inspector Tobacco Use Smoking Status Never smoker 06/28/24 15:22 Hx Tobacco Use No 06/28/24 15:22 Years Smoking Packs Smoked per Day Smoking Cessation Date was within the last 15 years Hx Smoking Cessation Date Hx Smoking Cessation Counseling Hematologic Medial History Hematologic Hx - cloth printing inspector: Hematologic Medical Hx - financial aid advisor Hx of Blood Transfusion No 06/28/24 15:22 [...] confused, unrespo /Reproduction History /Reproductive History - cloth printing inspector: /Reproductive Hx- cloth printing inspector Hx Now Yes 06/28/24 15:22 Gestational Age (in weeks): EDC: Hx Hx Para Hx Section SAB No 06/28/24 15:22 PFS Medical History Wears contact lenses Wears glasses [...] mg-folate no.1 1 mg-dha 300 mg capsule (PNV-[place]) sertraline 50 mg tablet (Zoloft) 50 mg [...] current occupational status: 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 06/29/24 1152 > Date _ Bay Solares [facility] Signature: Date CC: ~ Signed [facility]03-07-2025 Consult note [facility] Medical Records Department [address] [place] [address] Anesthesia Postop Eval II 06/29/24 1530 MR#: [id number] Acct: [id number] Name: DAVID CONTI Rep #:[id number] 5 : 1995 28 From: Bay Solares MD PCP: Joaquina Morales TRAINING DEVELOPMENT SPECIALIST-Ekta Status:R EG [facility] Y Race: C Location: [place] [address] Anesthesia Postop Eval I Sum Postop Eval Completion status Anesthesia document: Postop Eval 1 completed: Yes Anesthesia Postop Eval I Summary Anesthesia Postop Eval I Summary: Anesthesia Postop Eval I: Assessment Summary Airway patent Yes 06/29/24 15:25 WELD [email or web address] Spontaneous unlabored Yes 06/29/24 15:25 WELD [email or web address] respirations Mental status Awake,Calm 06/29/24 15:25 WELD [email or web address] nausea No 06/29/24 15:25 WELD [email or web address] Vomiting No 06/29/24 15:25 WELD [email or web address] Anesthesia Postop Eval I: Fluid Summary Crystalloid volume administer 250 06/29/24 15:25 WELD [email or web address] (ml) Colloids volume administered ( ml) Blood Product volume administered (ml) Total IV fluid infused 250 06/29/24 15:25 WELD [email or web address].[email or web address] Anesthesia Postop Eval I: Summary Notes Anesthesia Complication No 06/29/24 15:25 WELD [email or web address] Anesthesia Complication Comment: Post-operative progress note Anesthesia: Postop Eval II Evaluation Mental status: Awake Pain Level: 0 nausea: No Vomiting: No 06/29/24 1531 > Date _ Bay Dinh Signature: Date CC: ~ Signed [facility]03-07-2025 Discharge summary [facility] Medical Records Department [address] [place] [address] Instructions for Home/Discharge Instructions 06/29/24 1459 MR#: [id number] Acct: [id number] Name: DAVID CONTI Rep #:[id number] : 1995 28 From: Fadumo grimm MD PCP: TOMAS Roth Status:R EG [facility] Discharge Instructions Diet Discharge Diet: No restrictions [...] Up With: Fadumo Barreto MD When: Call [phone] to schedule appointment. Test Results: Test results from this visit will be discussed in further detail at your follow- up appointment, if applicable. Discharge Plan Admission Attending Provider: Fadumo Barreto Primary Care Provider: Joaquina Morales Instructions Print Language: Lao Discharge Orders/Prescriptions Prescriptions: No Action PNV-[place] 28-1-300 mg capsule 1 cap PO DAILY sertraline [Zoloft] 50 mg tablet 50 mg PO QDAY Qty: 60 3RF albuterol sulfate [Ventolin HFA] 1 INHALER inhaler 1 - 2 puff inhalation Q4H PRN PRN (Reason: sob) Referrals / Follow Up: Joaquina Morales, CHRISTOPH-C [Primary Care Provider] - Disposition Disposition (needs filled in before D/C Order can be placed): Home, Self Care 06/29/24 Christa Barreto MD CC: TRAINING DEVELOPMENT SPECIALIST-C Joaquina Morales ~ Signed [facility]03-07-2025 History and physical note [facility] Medical Records Department [address] [place] [address] H&P 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 06/29/24 1445 MR#: [id number] Acct: [id number] Name: DAVID CONTI Rep #:[id number] : 1995 28 From: Fadumo grimm MD PCP: TOMAS Roth Status:R EG [facility] Location: [place] [address] HPI - General HPI Narrative DAVID CONTI, is a 28 F who presents for early loss, supposed to be 9 weeks and only measuring 5-6 with early heartbeat seen and then no FHT seen on follow up ultrasound. patient denies anysignificant crmaping or pain no fevers. 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 I have discussed with the patient the risks, benefits, and alternatives of theprocedure which include but are notlimited to risks of anesthesia, bleeding, infection, possible damage to bowel, bladder, or surrounding vasculature which could lead to additional surgery to evaluate any complications. Patient agrees to procedure and wishes to proceed. ACOG/uptodate references given for additional information regarding procedure. 06/29/24 1448 Cosigner Signature (if applicable): CC: TRAINING DEVELOPMENT SPECIALIST-C Joaquina Morales; Dr. Fadumo Barreto MD~ Signed [facility]03-07-2025 Consult note Author Bay Solares [facility] Note Date/Time June 29, 2024 4:24 pm [facility] Medical Records Department [address] [place] [address] Pre-Anesthesia Evaluation 06/29/24 1152 MR#: [id number] Acct: [id number] Name: DAVID CONTI Rep #:[id number] 8 : 1995 28 From: Bay Solares MD PCP: Joaquina Morales, TRAINING DEVELOPMENT SPECIALIST-C Status:R EG SDC Y Race: C Location: [place] [address] ASA Classification* ASA Classification ASA Classification: 2 [...] 02/15/24 07:05 01/24 07/16 COAG HCG, Quant 06332 mIU/mL (<9 non-preg) H 06/25/24 09:25 Urine Test Negative Negative 10/28/15 09:50 10/28/15 Pre-Assessment Diagnosis/Proposed Procedure Planned Operative Procedure(s): SUCTION D&C Anesthesia History Anesthesia History - cloth printing inspector: Anesthesia History - cloth printing inspector Hx Hospitalization No 06/28/24 15:22 Any Problems [...] take am of surgery PONV PONV - cloth printing inspector: PONV - cloth printing inspector Female Yes 06/28/24 15:22 HX of Motion [...] 06/28/24 16:33 Respiratory Assessment Respiratory Assessment - cloth printing inspector: Respiratory Tract Infection Hx - cloth printing inspector Hx Respiratory Tract Infection No 06/28/24 15:22 STOP Sleep Apnea STOP Sleep Apnea - cloth printing inspector: STOP Sleep Apnea - cloth printing inspector Hx Hypertension No 06/28/24 15:22 Hx Sleep [...] Tobacco Use History Tobacco Use History - cloth printing inspector: Tobacco Use History - cloth printing inspector Tobacco Use Smoking Status Never smoker 06/28/24 15:22 Hx Tobacco Use No 06/28/24 15:22 Years Smoking Packs Smoked per Day Smoking Cessation Date was within the last 15 years Hx Smoking Cessation Date Hx Smoking Cessation Counseling Hematologic Medial History Hematologic Hx - cloth printing inspector: Hematologic Medical Hx - financial aid advisor Hx of Blood Transfusion No 06/28/24 15:22 [...] confused, unrespo /Reproduction History /Reproductive History - cloth printing inspector: /Reproductive Hx- cloth printing inspector Hx Now Yes 06/28/24 15:22 Gestational Age [...] mg-folate no.1 1 mg-dha 300 mg capsule (PNV-[place]) sertraline 50 mg tablet (Zoloft) 50 mg [...] current occupational status: 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 06/29/24 1152 <Electronically signed by Bay Solares MD > Date _ Bay Solares MD Cosigner Signature: Date CC: ~ Signed [facility] Work Phone: 1(174) 191-884503-06-2025 Radiology Diagnostic study note [facility] Imaging Services [address] [place] [address] Transvaginal w/Preg US MR#: [id number] Acct: [id number] Name: DAVID CONTI Rep #: [id number] 5 : 1995 F 28 From: Pa Dewitt MD PCP: TOMAS Roth Status: R EG CLI Study:Transvaginal w/Preg US Date of Exam: 06/28/24 Exam# [id number] Ordering Dr: Nikole Chang CNM PROCEDURE: TRANSVAGINAL [...] and unremarkable. DIMENSIONS: Parameter Measurement / EGA [place] Rump Length: 4 mm/6 weeks and 2 [...] at this time. Follow-up recommended. Reading Location: [id number] CC: ALIX Chang; TRAINING DEVELOPMENT SPECIALIST-C Joaquina Morales ~ Live Out Nanny: Signed [facility]03-01-2025 Consult note Author Bay Solares [facility] Note Date/Time June 29, 2024 3:31 pm [facility] Medical Records Department [address] [place] [address] Anesthesia Postop Eval II 06/29/24 1530 MR#: [id number] Acct: [id number] Name: DAVID CONTI Rep #:[id number] 5 : 1995 28 From: Bay Solares MD PCP: Joaquina Morales, CHRISTOPH-C Status:R EG SD Y Race: C Location: [place] [address] Anesthesia Postop Eval I Sum Postop Eval Completion status Anesthesia document: Postop Eval 1 completed: Yes Anesthesia Postop Eval I Summary Anesthesia Postop Eval I Summary: Anesthesia Postop Eval I: Assessment Summary Airway patent Yes 06/29/24 15:25 WELD [email or web address] Spontaneous unlabored Yes 06/29/24 15:25 WELD [email or web address] respirations Mental status Awake,Calm 06/29/24 15:25 WELD [email or web address] nausea No 06/29/24 15:25 WELD [email or web address] Vomiting No 06/29/24 15:25 WELD [email or web address] Anesthesia Postop Eval I: Fluid Summary Crystalloid volume administer 250 06/29/24 15:25 WELD [email or web address] (ml) Colloids volume administered ( ml) Blood Product volume administered (ml) Total IV fluid infused 250 06/29/24 15:25 WELD [email or web address] Anesthesia Postop Eval I: Summary Notes Anesthesia Complication No 06/29/24 15:25 WELD [email or web address] Anesthesia Complication Comment: Post-operative progress note Anesthesia: Postop Eval II Evaluation Mental status: Awake Pain Level: 0 nausea: No Vomiting: No 06/29/24 1531 <Electronically signed by Bay Solares MD > Date _ Bay Solares MD Cosigner Signature: Date CC: ~ Signed [facility] Work Phone: 1(536) 605-854502-27-2025 Evaluation note* Diagnosis Onset Date Resolution Status [...] June 21 10:47am Anxiety and depression acute [facility] 2024 12:36pm Asthma acute June 25 12:36pm [...] resolved June 12:36pm Missed acute June 11:39am [facility] Work Phone: 1(923) 225-456002-27-2025 Evaluation note* Diagnosis Onset Date Resolution Status [...] June 21 10:47am Anxiety and depression acute [facility] 2024 12:36pm Asthma acute June 25 12:36pm [...] acute June 11:39am Patient requested test acute [facility] 2024 10:33am [facility] Work Phone: 1(185) 884-677002-27-2025 Evaluation note* Diagnosis Onset Date Resolution Status [...] June 21 10:47am Anxiety and depression acute [facility] 2024 12:36pm Asthma acute June 25 12:36pm [...] acute June 11:39am Patient requested test acute [facility] 2024 10:33am Infertility acute September 11 9:47am Missed acute September 11, 2024 9:47am PCOS (polycystic ovarian syndrome) acute September 11, 2024 9 :47am [facility] Work Phone: 1(224) 696-539802-27-2025 Evaluation note* Diagnosis Onset Date Resolution Status [...] June 21 10:47am Anxiety and depression acute [facility] 2024 12:36pm Asthma acute June 25 12:36pm Infertility acute June 25 12:36pm PCOS (polycystic ovarian syndrome) acute June 25, 2024 12:36pm Early stage of resolved March 3rd, 2025 12:36pm Family history of breast cancer resolved June 25, 2024 12:36pm Family history of Alcaraz syndrome resolved June 25, 2024 12:36pm Hx of one miscarriage resolved Jun 12:36pm resolved June 25 12:36pm Supervision of high-risk resolved June 25, 2024 12:36pm Threatened affectin g intrauterine resolved June 12:36pm Missed acute June 11:39am Patient requested test acute [facility] 2024 10:33am Infertility acute September 11 9:47am Missed acute September 11, 2024 9:47am PCOS (polycystic ovarian syndrome) acute September 11, 2024 9 :47am Infertility acute October 11 10:14am [place] [facility] Work Phone: 1(940) 845-194112-02-2024 History of Present illness Narrative* Celeste Hawkins, JACINTO-FURNACE REPAIR MECHANIC - 03/26/2024 2:40 PM EST Subjective Patient [...] Record Patient disposition: Home documented in this [facility] Work Phone: 1(390) 677-172405-23-2024 Evaluation + Plan note* Assessment & Plan Note - JACINTO Roth CNP - 09/15/2023 4:40 PM EDTAssociated Problem(s): Anxiety and depression Stable. Continue Wellbutrin 300 mg daily [id number] Evaluation + Plan note* Assessment & Plan Note - JACINTO Roth CNP - 09/15/2023 4:40 PM EDTAssociated Problem(s): Skin sensation disturbance Left foot exam unremarkable and currently asymptomatic. Likely superficial nerve inflammation. Recommend avoiding shoes that are tight across the top of the foot, ice and elevate 2-3 times daily and follow-up if fails to resolve. Unknown etiology at this time otherwise [id number] Miscellaneous Notes* Assessment & Plan Note - [...] at this time otherwise documented in this [facility]05-23-2024 History of Present illness Narrative* Tracey Ordaz [...] mg in the evening. Yes Historical Provider, Pbrisebh-Tim-Lv-FA (/IRON PO) Take 1 tablet by mouth [...] CNP 09/15/2023 4:40 PM documented in this [facility]05-23-2024 Instructions* Patient Instructions* JACINTO Roth CNP - 09/15/2023 1:00 PM EDT Ice and elevate foot couple times a day, be careful not to wear shoes that pinch/pressure to much on top of foot. documented in this [facility]03-21-2024 Instructions* Patient Instructions* Nancy Ordoñez APRN.CNP - [...] anxiety and stress and reduces emotional eating. https://www.Dimension [employer]rapeutics.com/naltrexone#:~:text=Regulate%20appetite%3A%20Nalt rexone%20helps%20normalize,may%20lead%20to%20weight%20loss. Does Wellbutrin cause weight loss? It can. Bupropion (the generic form of Wellbutrin) was initially prescribed as an antidepressant. It is the only antidepressant associated with weight loss (Shan-Pedrero, 2019). Healthcare providers noticed that mostly pleasant [...] is associated with weight loss (Ernesto, 2019). https://Quest Online.co/health-guide/lllunogxaz-cde-akppxp-loss/ Bupropion and naltrexone: Patient drug information Access interclick Online for additional drug information, tools, and databases. Copyright 7886-0345 [employer]. All rights reserved. (For additional information see [...] list. For additional information please see the air traffic control specialist s website: https://www.contrave.Oxtex. Oral Contraceptives: The Pill Beginning the Pill [...] pills. Theseare formulated to give you a service desk technician period. Unless otherwise instructed, you should start [...] less iron deficiency anemia in pill users. ad terminal makeup operator use is associated with a decreased [...] mild fluid retention. There is no terminal computer operator weight gain with the use of the [...] health information. Bupropion: Patient drug information Access interclick Online for additional drug information, tools, and databases. Copyright 7893-8725 [employer]. All rights reserved. Contributor Disclosures (For additional [...] much, and when it happened. Last Reviewed [id number] Consumer Information Use and Disclaimer This generalized [...] or approved for treating a specific patient. UpToDate, Inc. and its affiliatesdisclaim any warranty or liability relating to this information or the use thereof. The use of thisinformation is governed by the Terms of Use, available at https://www.RampedMediaer.com/en/know/kwchcgel-fafaadfkbzcvy-dhbmy. 2021 [employer]. and its affiliates and/or licensors. All rights reserved. documented in this [facility] History of Present illness Narrative* Nancy Ordoñez APRN.SANDIP - 07/14/2023 7:30 AM EDT Some documentation [...] candy controlled Exercise: stable sedentary job at [employer]. 1 mile daily walk with dog Stress: [...] by mouth every morning. PNV/iron/folic acid ( TQNHIQN-JCQR-OK ORAL) Take 1 tablet by mouth once daily. albuterol HFA (PROVENTIL HFA, VENTOLIN HFA) 90 mcg/actuation inhaler Inhale 2 Puffs as instructed every 4 hours as needed. 1 Inhaler 0 No current facility-administered medications for this visit. Occupation: [employer] Contraception: none BP 126/82 Pulse [...] Level: 4 - Moderate documented in this encounterSelect [facility]24 Instructions* Patient Instructions* Nancy Ordoñez APRN.CNP - [...] and equals 21 g protein Beef, Chicken, [place], Pork, Ricardo 1 oz 7g Fish, Tuna [...] protein & 2 carb Protein AND carbs Beef/[place] Jerky 1 oz dried 10-15g protein - [...] oz - 8g protein & 12g carb Azerbaijani yogurt Full Fat Azerbaijani Yogurt 1 cup - 20.4g protein & 9.1g carb 2% Azerbaijani Yogurt 1 cup - 22.7g protein & 9.1g carb 0% (fat-free) Azerbaijani Yogurt - 1 cup 24g protein & 9.3g carb :ratio, KETO Friendly Dairy Snack 1 single svg - 15g protein & 2g carb :ratio Protein 1 single svg - 25g protein & 8g carb Dannon Light + Fit 1 single csvg - 12g protein & 9g carb Two Good Lowfat Azerbaijani Yogurt, [place], Lower Sugar - 12g protein & 2g carb Oikos Triple Zero Azerbaijani Nonfat Yogurt 1 single svg - 15g protein & 7g carb Aldi Azerbaijani yogurt 10g protein & 4 g carb Cheese each oz Brie 5.9g protein & 0.1g carb Cheddar Cheese 7g protein & 0.4g carb Mozzarella Cheese 6.3g protein & 0.6g carb Terrence Cheese 6.7g protein & 0.7g carb Parmesan Cheese 10g protein & 0.9g carb Cream Cheese 1.7g protein & 1.2g carb Feta 4g protein & 1.2g carb Kittitian Cheese 7.6g protein & 1.5g carb Portillo s Low Fat Cottage Cheese 1/2cup 12g protein & 4g carb Legumes Lentils cup 9g protein & 20g carb Bertrand beans cup 7g protein & 20g carb Kidney, Black, [place], Cannellini beans cup 8g protein & 20g carb Soybeans 1/2 c 14g protein & 8.5g carb Peanut butter, natural 2 Tbsp 7-8g protein & 4g net carbs, 190 calories Baring milk, unsweetened 8 oz 1g protein & 2g carb Soy milk 8 oz 3.5g protein & 1.6g carb Tofu 1/2 cup 10g protein & 2.3g carb Nuts and Seeds per oz Pumpkin Seeds - 6.9g protein & 5g carb Almonds - 5.9g protein & 6.1g carb [place] Seeds - 5.8g protein & 5.6g carb Pistachios - 5.8g protein & 7.8g carb Cashews - 5.1g protein & 9.2g carb Walnuts - 4.3g protein & 3.8g carb Hazelnuts - 4.2g protein & 4.7g carb Sugarcreek Nuts - 4.0g protein & 3.4g carb [...] Cabbage Spinach Peppers Green beans Carrots Tomato [place] Cunningham sprouts Cauliflower Lettuce Snap peas Broccoli [...] High Protein Snack Ideas 1. Jerky 2. [place] mix without or minimal dried fruit 3. [place] roll-ups 4. Azerbaijani yogurt 5. Veggies and yogurt dip 6. Tuna 7. Hard-boiled eggs 8. Peanut butter celery sticks 9. No-bake energy bites 10. Cheese slices/ Cheese Stick 11. Handful of almonds 12. Roasted chickpeas 13. Hummus and veggies 14. Cottage Cheese 15. Celery/fruit with peanut butter 16. Beef sticks (Grass-fed, natural ingredients) 17. Protein bars 18. Canned [place] 19. Matthew pudding 20. Homemade granola - rolled oats, nuts, and a little sweetener - 1/4 cup serving 21. Pumpkin seeds 22. Nut butter 23. Protein shakes 24. Edamame 25. Avocado and chicken salad 26. Fruit and nut bars - natural ingredients without added sugar. 27. Lentil salad 28. Overnight oatmeal 29. Egg muffins 30. Leftover protein or lunch meat documented in this encounterSelect [facility] History of Present illness Narrative* Nancy Ordoñez APRN.CNP - 06/16/2023 6:52 AM EST Some [...] tab for anxiety and depression Was in [place] with who races - very hectic travel. [...] to candy Exercise: stable sedentary job at [employer]. Just got gym membership - walking and [...] by mouth every morning. PNV/iron/folic acid ( IOGJCNL-LDKO-UZ ORAL) Take 1 tablet by mouth once [...] Follow up in 4 weeks Nancy Ordoñez APRN.FURNACE REPAIR MECHANIC Advanced Education from the Obesity Medicine Association Medical Decision Making: Problems: Moderate: 1+ chronic illnesses with change Risk: Moderate: Drug management and Moderate risk from testing/treatment Medical Decision Making Level: 4 - Moderate documented in this encounterSelect [facility] Evaluation + Plan note* Assessment & Plan Note - JACINTO Roth CNP - 06/15/2023 9:35 AM ESTAssociated Problem(s): PCOS (polycystic ovarian syndrome) Recommend following up with TALENT ANALYST regarding side effects of metformin and requesting if she can take extended release metformin to see if that is better tolerated. [facility] [id number] Miscellaneous Notes* Assessment & Plan Note - JACINTO Roth CNP - 06/15/2023 9:35 AM ESTAssociated Problem(s): PCOS (polycystic ovarian syndrome) Recommend following up with TALENT ANALYST regarding side effects of metformin and requesting [...] follow-up in 3 months documented in this encounterSPremier [id number] Miscellaneous Notes* Assessment & Plan Note - JACINTO Roth CNP - 06/15/2023 9:35 AM ESTAssociated Problem(s): PCOS (polycystic ovarian syndrome) Recommend following up with TALENT ANALYST regarding side effects of metformin and requesting [...] an update in about 1 month via Seriously if she would like to increase the dose to 300 mg. We will schedule her for follow-up in 3 months * Addendum Note - JACINTO Roth CNP - 06/15/2023 7:40 AM EST Addended by: JOQAUINA MORALES on: 06/16/2023 08:32 AM Modules accepted: Level of Service documented in this [facility]02-21-2024 Evaluation + Plan note* Assessment & Plan Note - JACINTO Roth CNP - 06/15/2023 9:34 AM ESTAssociated Problem(s): Anxiety and depression Denies any suicidal or homicidal ideation. Anxiety and depression have improved we will continue Wellbutrin 150 mg daily, patient to give us an update in about 1 month via Seriously if she would like to increase the dose to 300 mg. We will schedule her for follow-up in 3 months [facility] [id number] History of Present illness Narrative* Tracey Ordaz - 06/15/2023 7:40 AM EST Patient was identified by name and Date of . * JACINTO Roth CNP - 06/15/2023 7:40 AM EST Images from [...] an update in about 1 month via Seriously if she would like to increase the dose to 300 mg. We will schedule her for follow-up in 3 months 2. PCOS (polycystic ovarian syndrome) Assessment & Plan: Recommend following up with TALENT ANALYST regarding side effects of metformin and requesting if she can take extended release metformin to see if that is better tolerated. Follow up for 3 month [facility]. SUBJECTIVE/OBJECTIVE: HPI - David Conti (: 1995) is a 27 y.o. female , Established patient, here for the evaluation ofthe following chief complaint(s): Medication Check RACING WITH IN [place] WENT WELL, WAS SUPER BUSY. Did not get to do any sightseeing as theywere busy at the track every day. Got back from [place] on June 05, 2023. Patient reports she went to traffic police officer for pcos- was started on metformin and [...] with meals. 05/18/23 08/16/23 Yes Historical Provider, Unyjsvsj-Pqt-Gp-FA (/IRON PO) Take 1 tablet by mouth [...] CNP 06/15/2023 9:35 AM documented in this [facility]02-21-2024 History of Present illness Narrative* Tracey Ordaz - 06/15/2023 7:40 AM EST Patient was identified by name and Date of . * JACINTO Roth CNP - 06/15/2023 7:40 AM EST Images from [...] an update in about 1 month via Seriously if she would like to increase the dose to 300 mg. We will schedule her for follow-up in 3 months 2. PCOS (polycystic ovarian syndrome) Assessment & Plan: Recommend following up with TALENT ANALYST regarding side effects of metformin and requesting if she can take extended release metformin to see if that is better tolerated. Follow up for 3 month [facility]. SUBJECTIVE/OBJECTIVE: HPI - David Conti (: 1995) is a 27 y.o. female , Established patient, here for the evaluation ofthe following chief complaint(s): Medication Check RACING WITH IN [place] WENT WELL, WAS SUPER BUSY. Did not get to do any sightseeing as theywere busy at the track every day. Got back from [place] on June 05, 2023. Patient reports she went to traffic police officer for pcos- was started on metformin and [...] with meals. 05/18/23 08/16/23 Yes Historical Provider, Wqttfagt-Qlg-Ii-FA (/IRON PO) Take 1 tablet by mouth [...] CNP 06/15/2023 9:35 AM documented in this [facility]02-21-2024 Instructions* Patient Instructions* JACINTO Roth CNP - 06/15/2023 7:40 AM EST Asked about extended release metformin. Give update in about a month- if you want to increase dose of Wellbutrin or not documented in this [facility]02-21-2024 Instructions* Patient Instructions* JACINTO Roth CNP - 06/15/2023 7:40 AM EST Asked about extended release metformin. Give update in about a month- if you want to increase dose of Wellbutrin or not documented in this [facility]02-21-2024 Note* Addendum Note - JACINTO Roth CNP - 06/15/2023 7:40 AM ESTAddended by: JOAQUINA MORALES on: 06/16/2023 08:32 AM Modules accepted: Level of Service [facility] [id number] NoteAddended by: JOAQUINA MORALES on: 06/16/2023 08:32 AM Modules accepted: [facility] Evaluation + Plan note* Assessment & Plan Note - JACINTO Roth CNP - 05/16/2023 4:23 PM ESTAssociated Problem(s): Weight gain Will have her follow up with her traffic police officer, suspect gain posssilby from pcos. Continue exercise, healthy eating and portion control. Will stop lexapro (possible weight gain) and switch to wellbutrin. [facility] [id number] Miscellaneous Notes* Assessment & Plan Note - JACINTO Roth CNP - 05/16/2023 4:23 PM ESTAssociated Problem(s): Weight gain Will have her follow up with her traffic police officer, suspect gain posssilby from pcos. Continue exercise, [...] in about 1 month documented in this [facility]01-22-2024 Miscellaneous Notes* Assessment & Plan Note - JACINTO Roth CNP - 05/16/2023 4:23 PM ESTAssociated Problem(s): Weight gain Will have her follow up with her traffic police officer, suspect gain posssilby from pcos. Continue exercise, [...] accepted: Level of Service documented in this [facility]01-22-2024 Evaluation + Plan note* Assessment & Plan Note - JACINTO Roth CNP - 05/16/2023 4:16 PM ESTAssociated Problem(s): Anxiety and depression Denies si/hi. Anxiety and depression symptoms better but still is having trouble focusing. Will taper discontinue lexapro and start wellbutrin. Follow up in about 1 month [facility] [id number] History of Present illness Narrative* Tracey Ordaz - 05/16/2023 1:40 PM EST Patient was identified by name and Date of . * JACINTO Roth CNP - 05/16/2023 1:40 PM EST Images from the original note were not included. 05/16/2023 Davidyudith Conti (: 1995) is a 27 y.o. [...] Will have her follow up with her traffic police officer, suspect gain posssilby from pcos. Continue exercise, healthy eating and portion control. Will stop lexapro (possible weight gain) and switch to wellbutrin. Follow up in about 1 month (around 06/16/2023). SUBJECTIVE/OBJECTIVE: HPI - David Gallito (: 1995) is a 27 y.o. female , Established patient, here for the evaluation ofthe following chief complaint(s): Medication Check and Weight Gain Stopped nicotine and stopped etoh since we last met. . Has gained some weight. She thinks it may befrom going off of her control medication, Is working out with online [employer] classes daily, watching what she is eating. Is doing well as far as eating and exercising. She also is doing yoga. Stopped control. Has not had period since dec and February and has been testing. Is trying to get . Will be following up with her traffic police officer. Reports anxiety is better, but is not able to focus well still. Denies si/hi. Her and her are getting ready to go to [place] for car racing for 11 days. Her races cars. States she is looking forward to going. Prior to Admission medications Medication Sig Start Date End Date Taking? Authorizing Provider escitalopram (Lexapro) 20 MG tablet Take 1 tablet (20 mg) by mouth daily. 04/08/23 07/07/23 Yes Joaquina Morales, INSPECTOR CASING - FURNACE REPAIR MECHANIC MV-Min-Fe Fum-FA-DHA ( 1 PO) Take by [...] was used to authenticate this note. JACINTO Rtoh CNP 05/16/2023 4:24 PM documented in this [facility]01[facility] History of Present illness Narrative* Tracey Ordaz [...] Will have her follow up with her traffic police officer, suspect gain posssilby from pcos. Continue exercise, [...] control medication, Is working out with online [employer] classes daily, watching what she is eating. Is doing well as far as eating and exercising. She also is doing yoga. Stopped control. Has not had period since dec and February and has been testing. Is trying to get . Will be following up with her traffic police officer. Reports anxiety is better, but is not able to focus well still. Denies si/hi. Her and her are getting ready to go to [place] for car racing for 11 days. Her races cars. States she is looking forward to going. Prior to Admission medications Medication Sig Start Date End Date Taking? Authorizing Provider escitalopram (Lexapro) 20 MG tablet Take 1 tablet (20 mg) by mouth daily. 04/08/23 07/07/23 Yes Joaquina Morales APRN - FURNACE REPAIR MECHANIC MV-Min-Fe Fum-FA-DHA ( 1 PO) Take by [...] CNP 05/16/2023 4:24 PM documented in this [facility]01-22-2024 Instructions* Patient Instructions* JACINTO Roth CNP - 05/16/2023 1:40 PM EST Start wellbutrin and decrease lexapro to 10 mg daily x 7 days, then stop the lexapro. Check Headspace vangie for meditation documented in this [facility]01-22-2024 Instructions* Patient Instructions* JACINTO Roth CNP - 05/16/2023 1:40 PM EST Start wellbutrin and decrease lexapro to 10 mg daily x 7 days, then stop the lexapro. Check Headspace vangie for meditation documented in this [facility]01-22-2024 Note* Addendum Note - JACINTO Roth CNP - 05/16/2023 1:40 PM ESTAddended by: JOAQUINA MORALES on: 05/17/2023 10:57 AM Modules accepted: Level of Service [facility] [id number] NoteAddended by: JOAQUINA MORALES on: 05/17/2023 10:57 AM Modules accepted: Level of [facility]11-29-2023 Evaluation + Plan note* Assessment & Plan Note - JACINTO Roth CNP - 03/23/2023 1:21 PM ESTAssociated Problem(s): Anxiety and depression Denies any suicidal or homicidal ideation. Reports improved symptoms. We will continue on Lexapro 10 mg daily she is to provide an update through Seriously in approximately 4 weeks. Consider up titration if needed at that point. [facility] [id number] Miscellaneous Notes* Assessment & Plan Note - JACINTO Roth CNP - 03/23/2023 1:21 PM ESTAssociated Problem(s): Anxiety and depression Denies any suicidal or homicidal ideation. Reports improved symptoms. We will continue on Lexapro 10 mg daily she is to provide an update through Seriously in approximately 4 weeks. Consider up titration if needed at that point. documented in this [facility]11-29-2023 History of Present illness Narrative* Tracey Ordaz [...] she is to provide an update through Seriously in approximately 4 weeks. Consider up titration if needed at that point. Follow up in about 3 months (around 06/23/2023). SUBJECTIVE/OBJECTIVE: JANINE Conti (: 1995) is a [...] to set up with a counselor. Has TALENT ANALYST which she follows for women's health. Prior to Admission medications Medication Sig Start Date End Date Taking? Authorizing Provider escitalopram (Lexapro) 10 MG tablet Take 1 tablet (10 mg) by mouth daily. 03/08/23 06/06/23 Yes Joaquina Morales APRN - SANDIP MV-Min-Fe Fum-FA-DHA ( 1 [...] CNP 03/23/2023 1:22 PM documented in this [facility]11-29-2023 Instructions* Patient Instructions* JACINTO Roth CNP - 03/23/2023 9:40 AM EST Melatonin 1- 5 mg nightly to help with sleep. Send update via [employer] to provider in 1 month on how you are doing on the lexapro 10 mg daily. documented in this [facility]08-07-2023 History of Present illness Narrative* Divya Nation MD - 11/29/2022 2:10 PM EDT Collar Runner offered: Patient declines. David is a 27 [...] Ectopic0 Multiple0 Live Births0 Comment: 3 stepchildren Rn Relief Charge History LMP: 11/30/2021, Having periods Age at Menarche: Age at First : Age at Menopause: Rn Relief Charge History Comments: Sexual Activity: Yes; Male; sexually [...] external genitalia normal, normal Bartholin's glands, urethra, Amana's glands, no vulvar lesions, no cervical lesions, [...] needed Divya Melendez MD documented in this encounter[facility] Miscellaneous Notes* Telephone Encounter - Dennise Yan RN - 10/06/2022 10:28 AM EDT Patient called in requesting refill today. Annual scheduled with DM 11/29/22. No need to call back. Requested Prescriptions Pending Prescriptions Disp Refills Norethindrone Acet-Ethinyl Est (,) 1-20 mg-mcg per tablet 28 tablet 2 Sig: TAKE 1 TABLET BY MOUTH DAILY Dennise Yan RN documented in this encounterSelect [facility]-2023 Miscellaneous Notes* Addendum Note - Rama Holley [...] Rx before KJ returns on Tuesday. Rosmery Balrow RN * Telephone Encounter - Isaura Mcneill RN - 06/30/2022 1:11 PM EST RX pending. Patient last seen for annual 10/20/21 documented in this encounterSelect [facility]23 Miscellaneous Notes* Telephone Encounter - Dorothy Tadeo [...] Orderpending. Isaura Mcneill RN documented in this encounterSelect [facility]2023 Miscellaneous Notes* Telephone Encounter - Niharika Lee MD - 04/30/2022 10:48 AM EST Please call & explain that day 21 would be May 20 and today is day 1. Thanks! Niharika Lee MD documented in this encounter[facility] Miscellaneous Notes* Telephone Encounter - Niharika Lee MD - 04/22/2022 10:28 AM EST Menses can take 7-10 days to start after finishing provera. Niharika Lee MD * Telephone Encounter - Niharika Lee MD - 04/13/2022 10:47 AM EST Rx provera given Niharika Lee MD documented in this encounterSelect [facility] Miscellaneous Notes* Telephone Encounter - Dennise Yan [...] desires . Thanks! KJ documented in this encounter[facility] History of Present illness Narrative* Niharika Lee MD - 03/30/2022 11:26 AM EST David Conti is a 26 year old female who presents for problem visit (virtually). HPI: Patient has questions about her positive test and missed menses. Also she would liketo get and has questions about that as well. OB History T0 L0 SAB0 IAB0 Ectopic0 Multiple0 Live Births0 Comment: 3 stepchildren Rn Relief Charge History LMP: 11/30/2021, Having periods Age at Menarche: Age at First : Age at Menopause: Rn Relief Charge History Comments: Sexual Activity: Yes; Male; sexually [...] which included preparing to see the patient, byxg-kg-mbxg patient care, completing clinical documentation, and counseling and educating the patient/family/caregiver. Niharika Lee MD documented in this encounterSelect [facility]22 Miscellaneous Notes* Telephone Encounter - Rosmery Barlow [...] advise. Dennise Yan RN documented in this encounterSelect [facility]2022 Miscellaneous Notes* Telephone Encounter - Elvi Sam [...] advise. Dai Bueno LPN documented in this encounterSelect [facility]07-[facility]-2022 Miscellaneous Notes* Telephone Encounter - Dennise Yan RN - 10/30/2021 8:50 AM EDT See phone note. Dennise Yan RN * Telephone Encounter - Divya Muniz MD - 10/29/2021 8:45 AM EDT This is KJ patient- I read ultrasound. Please forward to her. documented in this encounterSelect [facility]06-28-[facility]22 History of Present illness Narrative* Niharika Lee [...] OB History No obstetric history on file. Rn Relief Charge History LMP: 09/14/2021, Having periods Age at Menarche: Age at First : Age at Menopause: Rn Relief Charge History Comments: Sexual Activity: Yes; Male; sexually active with Contraception: Pill PAST MEDICAL HISTORY Diagnosis Date Exertional asthma 07/28/2011 Medial meniscus tear 07/28/2011 Unspecified otitis media Recurrent otitis Vocal cord dysfunction 09/07/2011 PAST SURGICAL HISTORY Procedure Laterality Date ANKLE ARTHROSCOPY Right 7/5/16 Dr. Fu FAMILY HISTORY Problem Relation Age [...] external genitalia normal, normal Bartholin's glands, urethra, Amana's glands, no vulvar lesions, no cervical lesions, [...] US. Niharika Lee MD documented in this encounterSelect [facility]-2013 History of Past illness Narrative* Problem Noted Date Resolved Date Posterior tibial tendonitis 11/27/2012/04/2014 Achilles tendinitis 11/27/2012 11/12/2014 documented as of this encounter (statuses as of 10/20/2021) [facility] History of Past illness Narrative* Problem Noted Date Resolved Date Posterior tibial tendonitis 11/27/201210/24 Achilles tendinitis 11/27/2012 11/12/2014 documented as of this encounter (statuses as of 10/27/2021) [facility] History of Past illness Narrative* Problem Noted Date Resolved Date Posterior tibial tendonitis 11/27/201210/24 Achilles tendinitis 11/27/2012 11/12/2014 documented as of this encounter (statuses as of 10/30/2021) [facility] History of Past illness Narrative* Problem Noted Date Resolved Date Posterior tibial tendonitis 11/27/201210/24 Achilles tendinitis 11/27/2012 11/12/2014 documented as of this encounter (statuses as of 03/19/2022) [facility] History of Past illness Narrative* Problem Noted Date Resolved Date Posterior tibial tendonitis 11/27/201210/24 Achilles tendinitis 11/27/2012 11/12/2014 documented as of this encounter (statuses as of 03/23/2022) [facility] History of Past illness Narrative* Problem Noted Date Resolved Date Posterior tibial tendonitis 11/27/201210/24 Achilles tendinitis 11/27/2012 11/12/2014 documented as of this encounter (statuses as of 03/30/2022) [facility] History of Past illness Narrative* Problem Noted Date Resolved Date Posterior tibial tendonitis 11/27/201210/24 Achilles tendinitis 11/27/2012 11/12/2014 documented as of this encounter (statuses as of 04/02/2022) [facility] History of Past illness Narrative* Problem Noted Date Resolved Date Posterior tibial tendonitis 11/27/201210/24 Achilles tendinitis 11/27/2012 11/12/2014 documented as of this encounter (statuses as of 04/28/2022) [facility] History of Past illness Narrative* Problem Noted Date Resolved Date Posterior tibial tendonitis 11/27/201210/24 Achilles tendinitis 11/27/2012 11/12/2014 documented as of this encounter (statuses as of 05/01/2022) [facility] History of Past illness Narrative* Problem Noted Date Resolved Date Posterior tibial tendonitis 11/27/201210/24 Achilles tendinitis 11/27/2012 11/12/2014 documented as of this encounter (statuses as of 05/20/2022) [facility] History of Past illness Narrative* Problem Noted Date Resolved Date Posterior tibial tendonitis 11/27/201210/24 Achilles tendinitis 11/27/2012 11/12/2014 documented as of this encounter (statuses as of 07/01/2022) [facility] History of Past illness Narrative* Problem Noted Date Resolved Date Posterior tibial tendonitis 11/27/201210/24 Achilles tendinitis 11/27/2012 11/12/2014 documented as of this encounter (statuses as of 10/06/2022) [facility] History of Past illness Narrative* Problem Noted Date Diagnosed Date Resolved Date Posterior tibial tendonitis 11/27/2012 11/12/2014 Achilles tendinitis 11/27/2012 11/13/19 15 documented as of this encounter (statuses as of 11/30/2022) [facility] History of Past illness Narrative* Problem Noted Date Diagnosed Date Resolved Date Posterior tibial tendonitis 11/27/2012 11/12/2014 Achilles tendinitis 11/27/2012 11/13/19 15 documented as of this encounter (statuses as of 06/16/2023) [facility] History of Past illness Narrative* Problem Noted Date Diagnosed Date Resolved Date Posterior tibial tendonitis 11/27/2012 11/12/2014 Achilles tendinitis 11/27/2012 11/13/19 15 documented as of this encounter (statuses as of 07/14/2023) [facility]Dis[facility] summary Author Fadumo Barreto [facility] Note Date/Time June 29, 2024 3:00 pm [facility] Medical Records Department [address] [place] [address] Instructions for Home/Discharge Instructions 06/29/24 1459 MR#: [id number] Acct: [id number] Name: DAVID CONTI Rep #:[id number] : 1995 28 From: Fadumo grimm [...] Up With: Fadumo Barreto MD When: Call [phone] to schedule appointment. Test Results: Test results from this visit will be discussed in further detail at your follow- up appointment, if applicable. Discharge Plan Admission Attending Provider: Fadumo Barreto Primary Care Provider: Joaquina Morales Instructions Print Language: Lao Discharge Orders/Prescriptions Prescriptions: No Action PNV-Mayville 28-1-300 mg capsule 1 cap PO DAILY [...] by Fadumo Barreto MD>Fadumo Barreto MD CC: TOMAS Morales ~ Signed [facility] Work Phone: Evaluation note* Diagnosis Encounter for gynecological examination without abnormal finding- Primary Routine gynecological examination Encounter for screening for malignant neoplasm of cervix Screening for malignant neoplasm of the cervix Irregular intermenstrual bleeding Metrorrhagia [facility] Diagnosis Abnormal uterine bleeding (AUB)- Primary documented in this encounter [facility] note* Diagnosis Missed menses- Primary Absence of menstruation [facility]* Diagnosis PCOS (polycystic ovarian syndrome)- Primary Polycystic ovaries Missed menses Absence of menstruation [facility]* Diagnosis Anovulation- Primary Female infertility associated with anovulation documented in this encounter [facility] note* Diagnosis Encounter for gynecological examination (general) (routine) without abnormal findings- Primary PCOS (polycystic ovarian syndrome) Polycystic ovaries [facility]* Diagnosis Annual physical exam- Primary Routine general medical examination at a general [facility] facility Screening for deficiency anemia Screening for other and unspecified deficiency anemia Screening for cholesterol level Anxiety and depression documented in this encounter [facility] note* Diagnosis Anxiety and depression- Primary Weight gain Other symptoms concerning nutrition, metabolism, and development documented in this encounter [facility] note* Diagnosis Anxiety and depression- Primary Weight gain Other symptoms concerning nutrition, metabolism, and development documented in this encounter [facility] note* Diagnosis Anxiety and depression- Primary PCOS (polycystic ovarian syndrome) Polycystic ovaries documented in this encounter [facility] note* Diagnosis Anxiety and depression- Primary PCOS (polycystic ovarian syndrome) Polycystic ovaries documented in this encounter [facility] note* Diagnosis PCOS (polycystic ovarian syndrome)- [...] 29.9 in adult [facility]* Diagnosis PCOS (polycystic ovarian syndrome)- Primary Polycystic ovaries Irregular menses Irregular menstrual cycle Anxiety and depression Dysthymic disorder History of bulimia Personal history of other mental disorder History of anorexia nervosa Personal history of other mental disorder Provided repeat prescription for oral contraceptive Overweight with body mass index (BMI) of 29 to 29.9 in adult documented in this encounter [facility] note* Diagnosis Anxiety and depression- Primary Skin sensation disturbance Disturbance of skin sensation documented in this encounter [facility] note* Diagnosis Contact dermatitis, unspecified contact dermatitis type, unspecified trigger- Primary documented in this encounter [facility] Work Phone: Evaluation note* Diagnosis Contact dermatitis, unspecified contact dermatitis type, unspecified trigger- Primary [facility] Fadumo Barreto [facility] Note Date/Time June 29, 2024 2:48 pm [facility] Medical Records Department [address] [place] [address] H&P 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 06/29/24 1445 MR#: [id number] Acct: [id number] Name: DAVID CONTI Rep #:[id number] : 1995 28 From: Fadumo grimm MD PCP: Joaquina Morales TRAINING DEVELOPMENT SPECIALISTEdenilsonC Status:[facility] Location: [place] [address] HPI - General HPI Narrative DAVID CONTI, [...] mg-folate no.1 1 mg-dha 300 mg capsule (PNV-[place]ville) sertraline 50 mg tablet (Zoloft) 50 mg [...] current occupational status: employed 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 Fadumo Barreto MD~ Signed [facility] Work Phone: Hospital Discharge instructions Additional Instructions Your hemoglobin 13.3. EKG normal. hCG negative. Ultrasound normal. Discussed with Dr. Pineda. Stop your progesterone at this time. Take Megace as prescribed for the next 10 days. Call the office for follow-up.[facility] Work Phone: Reason for referral (narrative)* Diagnostic Procedure Only (Routine) - Authorized Specialty Diagnoses / Procedures Referred By Roberto tristan Referred To Contact [facility] Diagnoses Irregular intermenstrual bleeding Procedures PELVIC US WHI US PELVIC NONOBSTETRIC REAL-TIME IMAGE COMPLETE Niharika Lee MD [address] [place] [address] [facility] [address] [place] [address] Referral ID Status Reason Start Date Expiration Date Visits Requested Visits Authorized [id number] Authorized Auto-Generat ed Referral 10/20/2021 10/20/2022 1 1 [facility] for referral (narrative)No reason for referral information availableWooSelect Medical [facility] Work Phone: Summary Purpose Family History [...] No June 28, 2024 3:22pm Power of Bisque Kiln [employer]acer No June 28 3:22pm Advance Directive Response Recorded Date/ Time Advance Directives No May 21, 2024 12:52pm Living Will No June 28, 2024 4:22pm Power of [employer] Kiln [employer]acer No June 28 4:22pm Advance Directive Response Recorded Date/ Time Advance Directives No May 21, 2024 12:52pm Living Will No June 28, 2024 4:22pm Do you have a Healthcare Power of Bisque Kiln Placer? No June 28, 2024 4:22pm Advance Directive Response Recorded Date/ Time Advance Directives No May 21, 2024 12:52pm Living Will No June 28, 2024 4:22pm Do you have a Healthcare Power of Bisque Kiln Placer? No June 28, 2024 4:22pm Do you have a Healthcare Power of Bisque Kiln Placer? No October 02, 2024 12:04pm Advance Directive Response Recorded Date/ Time Do you have a Healthcare Power of Bisque Kiln Placer? No October 02, 2024 12:04pm Advance Directives No May 21, 2024 12:52pm Chief Complaint and Reason for Visit Chief [...] 2024 10:47am PCOS (polycystic ovarian syndrome) Febru bo2024 10:47am Early stage of June 21, 2024 10:47am Family history of breast cancer June 21, 2024 10:47am Family history of Alcaraz syndrome Februa 2024 10:47am Hx of one miscarriage June 21 10:47am June 21, 2024 10:47am Supervision of high-risk [facility]2024 10:47am Anxiety and depression June 25, 2024 [...] 21, 2024 10:47am Supervision of high-risk Febru 2024 10:47am Anxiety and depression June 25, [...] 21, 2024 10:47am PCOS (polycystic ovarian syndrome) [facility] 2024 10:47am Early stage of June 21, [...] 9:47am Infertility October 11, 2024 10:1 4am Chief Complaint Admit Date Med Check September 11, 2024 9:47a m BLEEDING October 02, 2024 10:5 6am ER follow up for heavy bleeding September 10:14am INT, LAB ORDER November 10, 2024 7:42 am Reason for Visit Admit Date Infertility September 11, 2024 9:47a m Missed September 11, 2024 9:47a m PCOS (polycystic ovarian syndrome) August 242024 9:47am Abnormal uterine bleeding October 11 10:14am Infertility October 11, 2024 10:1 4am Additional Source Comments Source Comments (unrecognize d section and content) In the event this informatio n is protected by the Federal Confidentiality of Alcohol and Drug Abuse Patient Records regulations: The Federal rules restrict any use of the information to criminally investigate or prosecute any alcohol or drug abuse patient.[facility] the event this information is protected by the Federal Confidentiality of Alcohol and Drug Abuse Patient Records regulations: The Federal rules restrict any use of the information to criminally investigate or prosecute any alcohol or drug abuse patient.[facility] Shaw[facility] the event this information is protected by the Federal Confidentiality of Alcohol and Drug Abuse Patient Records regulations: The Federal rules restrict any use of the information to criminally investigate or prosecute any alcohol or drug abuse patient.[facility] ShawIn the event this information is protected by the Federal Confidentiality of Alcohol and Drug Abuse Patient Records regulations: The Federal rules restrict any use of the information to criminally investigate or prosecute any alcohol or drug abuse patient.[facility] ShawIn the event this information is protected by the Federal Confidentiality of Alcohol and Drug Abuse Patient Records regulations: The Federal rules restrict any use of the information to criminally investigate or prosecute any alcohol or drug abuse patient.[facility] ShawIn the event this information is protected by the Federal Confidentiality of Alcohol and Drug Abuse Patient Records regulations: The Federal rules restrict any use of the information to criminally investigate or prosecute any alcohol or drug abuse patient.[facility] ShawIn the event this information is protected by the Federal Confidentiality of Alcohol and Drug Abuse Patient Records regulations: The Federal rules restrict any use of the information to criminally investigate or prosecute any alcohol or drug abuse patient.[facility] ShawIn the event this information is protected by the Federal Confidentiality of Alcohol and Drug Abuse Patient Records regulations: The Federal rules restrict any use of the information to criminally investigate or prosecute any alcohol or drug abuse patient.[facility] ShawIn the event this information is protected by the Federal Confidentiality of Alcohol and Drug Abuse Patient Records regulations: The Federal rules restrict any use of the information to criminally investigate or prosecute any alcohol or drug abuse patient.[facility] ShawIn the event this information is protected by the Federal Confidentiality of Alcohol and Drug Abuse Patient Records regulations: The Federal rules restrict any use of the information to criminally investigate or prosecute any alcohol or drug abuse patient.[facility] ShawIn the event this information is protected by the Federal Confidentiality of Alcohol and Drug Abuse Patient Records regulations: The Federal rules restrict any use of the information to criminally investigate or prosecute any alcohol or drug abuse patient.[facility] ShawIn the event this information is protected by the Federal Confidentiality of Alcohol and Drug Abuse Patient Records regulations: The Federal rules restrict any use of the information to criminally investigate or prosecute any alcohol or drug abuse patient.[facility] ShawIn the event this information is protected by the Federal Confidentiality of Alcohol and Drug Abuse Patient Records regulations: The Federal rules restrict any use of the information to criminally investigate or prosecute any alcohol or drug abuse patient.[facility] ShawIn the event this information is protected by the Federal Confidentiality of Alcohol and Drug Abuse Patient Records regulations: The Federal rules restrict any use of the information to criminally investigate or prosecute any alcohol or drug abuse patient.[facility] ShawIn the event this information is protected by the Federal Confidentiality of Alcohol and Drug Abuse Patient Records regulations: The Federal rules restrict any use of the information to criminally investigate or prosecute any alcohol or drug abuse patient.[facility] ShawIn the event this information is protected by the Federal Confidentiality of Alcohol and Drug Abuse Patient Records regulations: The Federal rules restrict any use of the information to criminally investigate or prosecute any alcohol or drug abuse patient.[facility] Reason for Visit (unrecogniz ed section and content) Reason Onset Date Comments Yearly Exam 10/20/2021 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 Reason Comments Patient Question Reason Comments Irregular Menstrual Cycle Reason Comments Follow Up Reason Comments Orders Reason Onset Date Comments Refill Request Refill Request 10/06/2022 Reason Comments Yearly Exam Reason Comments Follow-up Health Maintenance Lipid-pendedHIV/Hep Y-bvzhwmkvCpgmb-bbmrhnkwWRJ-completedPap-CCF (will scan in)Gyzj-gydpwnpfBlncnhear-xoztturb Reason Comments Medication Check Weight Gain Reason Comments Medication Check Reason Comments Follow Up Labs and medication Reason Comments Weight Management Reason Comments Medication Check Foot Problem Reason Comments Rash Reason Comments Rash Rash on forearms/chi n, left ankle, possible poison gwendolyn, has tried benadryl anti-itch lotion and extreme poison Gwendolyn & oak scrub, Care Teams (unrecognized sec tion and content) Shipping Clerk Relationship Specialty Start Date End Date Randall Naranjo III, MD [place]DRESS PCP - General 02/15/02 Shipping Clerk Relationship Specialty Start Date End Date Randall Naranjo III, MD [place] PCP - General 02/15/02 Shipping Clerk Relationship Specialty Start Date End Date BreRandall tate III, MD [place]DR[place] PCP - General 02/15/02 Shipping Clerk Relationship Specialty Start Date End Date Randall Naranjo III, MD [place] PCP - General 02/15/02 Shipping Clerk Relationship Specialty Start Date End Date Randall Naranjo III, MD [place]DR[place] PCP - General 02/15/02 Shipping Clerk Relationship Specialty Start Date End Date Randall Naranjo III, MD [place] PCP - General 02/15/02 Shipping Clerk Relationship Specialty Start Date End Date Randall Naranjo III, MD [place]DR[place] PCP - General 02/15/02 Shipping Clerk Relationship Specialty Start Date End Date Randall Naranjo III, MD [place]DRESS PCP - General 02/15/02 Shipping Clerk Relationship Specialty Start Date End Date Randall Naranjo III, MD [place]DR[place] PCP - General 02/15/02 Shipping Clerk Relationship Specialty Start Date End Date Randall Naranjo III, MD [place]DR[place] PCP - General 02/15/02 Shipping Clerk Relationship Specialty Start Date End Date Kyle Betancourt MD [address] [place] [id number] PCP - General Family Medicine 03/08/23 Shipping Clerk Relationship Specialty Start Date End Date Kyle Betancourt MD [address] [place] [id number] PCP - General Family Medicine 03/08/23 Shipping Clerk Relationship Specialty Start Date End Date Kyle Betancourt MD [address] [place], [place] [id number] PCP - [facility] Medicine 03/08/23 Shipping Clerk Relationship Specialty Start Date End Date Kyle Betancourt MD [address], [place] [phone] PCP - General [facility] Medicine 03/08/23 Shipping Clerk Relationship Specialty Start Date End Date Joaquina Morales CNP [address], [place] [id number] PCP - General [facility] Medicine 03/23/23 Shipping Clerk Relationship Specialty Start Date End Date Joaquina Morales CNP [address] [place], [place] [phone] PCP - General Family Medicine 03/23/23 Shipping Clerk Relationship Specialty Start Date End Date Kyle Betancourt MD [address], [place] [phone] PCP - General Family Medicine 03/08/23 Team Status: Active Member Role Status Dates TOMAS Roth Primary Care Provider Active Team Status: Inactive Member Role Status Dates Joaquina Morales NP-C Primary Care Provider Active Start: March 07, 2024 End: March 07, 2024 Samanta Jaramillo NP TRAINING DEVELOPMENT SPECIALIST-C Attending Provider Active Start: March 07, 2024 End: March 07, 2024 Samanta Jaramillo NP, NP-C Referring Provider Active Start: March 07, 2024 End: March 07, 2024 Team Status: Inactive Member Role Status Dates Joaquina Morales NP-C Primary Care Provider Active Start: March 25, 2024 End: March 25, 2024 Samanta Jaramillo TRAINING DEVELOPMENT SPECIALIST, TRAINING DEVELOPMENT SPECIALIST-C Attending Provider Active Start: March 25, 2024 End: March 25, 2024 Samanta Jaramillo TRAINING DEVELOPMENT SPECIALIST, TRAINING DEVELOPMENT SPECIALIST-C Referring Provider Active Start: March 25, 2024 End: March 25, 2024 Kristina Cruz NP-C Other Provider Active Star t: March 25, 2024 End: March 25, 2024 Team Status: Inactive Member Role Status Dates Joaquina Morales , TRAINING DEVELOPMENT SPECIALIST-C Primary Care Provider Active Start: May 08, 2024 End: May 08, 2024 Samanta Jaramillo TRAINING DEVELOPMENT SPECIALIST, TRAINING DEVELOPMENT SPECIALIST-C Attending Provider Active Start: May 08, 2024 End: May 08, 2024 Samanta Jaramillo TRAINING DEVELOPMENT SPECIALIST, TRAINING DEVELOPMENT SPECIALIST-C Referring Provider Active Start: May 08, 2024 End: May 08, 2024 Team Status: Inactive Member Role Status Dates Joaquina Morales , TRAINING DEVELOPMENT SPECIALIST-C Primary Care Provider Active Start: May 17, [...] End: May 19, 2024 Joaquina Morales , TRAINING DEVELOPMENT SPECIALIST-C Primary Care Provider Active Start: May 19, 2024 End: May 19, 2024 Team Status: Inactive Member Role Status Dates Joaquina Morales , TRAINING DEVELOPMENT SPECIALIST-C Primary Care Provider Active Start: June 21, 2024 End: June 21, 2024 Joaquina Morales , TRAINING DEVELOPMENT SPECIALIST-C Referring Provider Active Start: June 21, 2024 End: June 21, 2024 Nikole Chang CNM Attending Provider Active S tart: June 21, 2024 End: June 21, 2024 Team Status: Active Member Role Status Dates Joaquina Morales , TRAINING DEVELOPMENT SPECIALIST-C Primary Care Provider Active Start: June 21, 2024 Nikole Chang CNM Attending Provider Active S tart: June 21, 2024 Nikole Chang CNM Referring Provider Active S tart: June 21, 2024 Team Status: Active Member Role Status Dates Joaquinazeinab Morales , TRAINING DEVELOPMENT SPECIALIST-C Primary Care Provider Active Start: June 23, 2024 Nikole Chang CNM Attending Provider Active S tart: June 23, 2024 Nikole Chang CNM Referring Provider Active S tart: June 23, 2024 Team Status: Active Member Role Status Dates Joaquinamelissa Morales , TRAINING DEVELOPMENT SPECIALIST-C Primary Care Provider Active Start: June 25, 2024 Dr. Isaura Song DO Attending Provider Activ e Start: June 25, 2024 Dr. Isaura Song DO Referring Provider Activ e Start: June 25, 2024 Team Status: Inactive Member Role Status Dates Joaquina Osminal , TRAINING DEVELOPMENT SPECIALIST-C Primary Care Provider Active Start: June 25, 2024 End: June 25, 2024 Joaquina Ainsley , TRAINING DEVELOPMENT SPECIALIST-C Referring Provider Active Start: June 25, 2024 End: June 25, 2024 Dr. Isaura Song DO Attending Provider Activ e Start: June 25, 2024 End: June 25, 2024 Team Status: Active Member Role Status Dates Joaquina Ainsley , TRAINING DEVELOPMENT SPECIALIST-C Primary Care Provider Active Start: June 28, 2024 Nikole Chang CNM Attending Provider Active S tart: June 28, 2024 Nikole Chang CNM Referring Provider Active S tart: June 28, 2024 Team Status: Inactive Member Role Status Dates Joaquina Ainsley , TRAINING DEVELOPMENT SPECIALIST-C Primary Care Provider Active Start: June 29, 2024 End: June 29, 2024 Dr. Fadumo Barreto MD Attending Provider Active Start: June 29, 2024 End: June 29, 2024 Dr. Fadumo Barreto MD Referring Provider Active Start: June 29, 2024 End: June 29, 2024 Team Status: Active Member Role Status Dates Joaquinazeinab Morales , TRAINING DEVELOPMENT SPECIALIST-C Primary Care Provider Active Start: June 29, 2024 Dr. Fadumo Barreto MD Attending Provider Active Start: June 29, 2024 Dr. Fadumo Barreto MD Referring Provider Active Start: June 29, 2024 Dr. Fadumo Barreto MD Other Provider Active Start: June 29, 2024 Team Status: Inactive Member Role Status Dates Joaquinazeinab Morales , TRAINING DEVELOPMENT SPECIALIST-C Primary Care Provider Active Start: June 21, 2024 End: June 21, 2024 Nikole Chang CNM Attending Provider Active S tart: June 21, 2024 End: June 21, 2024 Nikole Chang CNM Referring Provider Active S tart: June 21, 2024 End: June 21, 2024 Team Status: Inactive Member Role Status Dates Joaquinamelissa Morales , TRAINING DEVELOPMENT SPECIALIST-C Primary Care Provider Active Start: June 23, 2024 End: June 23, 2024 Nikole Chang CNM Attending Provider Active S tart: June 23, 2024 End: June 23, 2024 Nikole Chang CNM Referring Provider Active S tart: June 23, 2024 End: June 23, 2024 Team Status: Inactive Member Role Status Dates Joaquina Osminal , TRAINING DEVELOPMENT SPECIALIST-C Primary Care Provider Active Start: June 25, 2024 End: June 25, 2024 Dr. Isaura Song DO Attending Provider Activ e Start: June 25, 2024 End: June 25, 2024 Dr. Isaura Song DO Referring Provider Activ e Start: June 25, 2024 End: June 25, 2024 Team Status: Inactive Member Role Status Dates Joaquina Ainsley , TRAINING DEVELOPMENT SPECIALIST-C Primary Care Provider Active Start: June 28, 2024 End: June 28, 2024 Nikole Chang CNM Attending Provider Active S tart: June 28, 2024 End: June 28, 2024 Nikole Chang CNM Referring Provider Active S tart: June 28, 2024 End: June 28, 2024 Team Status: Inactive Member Role Status Dates Joaquina Osminal , TRAINING DEVELOPMENT SPECIALIST-C Primary Care Provider Active Start: July 13, 2024 End: July 13, 2024 Joaquina Bridtopheral , TRAINING DEVELOPMENT SPECIALIST-C Referring Provider Active Start: July 13, 2024 End: July 13, 2024 Dr. Fadumo Barreto MD Attending Provider Active Start: July 13, 2024 End: July 13, 2024 Team Status: Inactive Member Role Status Dates Joaquina Bridenthal , TRAINING DEVELOPMENT SPECIALIST-C Primary Care Provider Active Start: September 11, 2024 End: September 11, 2024 Joaquina Ainsley , TRAINING DEVELOPMENT SPECIALIST-C Referring Provider Active Start: September 11, 2024 End: September 11, 2024 Dr. Isaura Song , DO Attending Provider Activ e Start: September 11, 2024 End: September 11, 2024 Team Status: Inactive Member Role Status Dates Joaquinazeinab Morales , TRAINING DEVELOPMENT SPECIALIST-C Primary Care Provider Active Start: October 02, 2024 End: October 02, 2024 Dr. Benito Terry DO Emergency Provider Active Start : October 02, 2024 End: October 02, 2024 Team Status: Inactive Member Role Status Dates Joaquinamelissa Solorioal , TRAINING DEVELOPMENT SPECIALIST-C Primary Care Provider Active Start: October 02, 2024 End: October 02, 2024 Dr. Benito Terry DO Attending Provider Active Start : October 02, 2024 End: October 02, 2024 Dr. Benito Terry DO Emergency Provider Active Start : October 02, 2024 End: October 02, 2024 Team Status: Inactive Member Role Status Dates Joaquina Bridenthal , TRAINING DEVELOPMENT SPECIALIST-C Primary Care Provider Active Start: October 11, 2024 End: October 11, 2024 Joaquina Osminal , TRAINING DEVELOPMENT SPECIALIST-C Referring Provider Active Start: October 11, 2024 End: October 11, 2024 Kristina Cruz NP-C Attending Provider Active Start: October 11, 2024 End: October 11, 2024 Shipping Clerk Relationship Specialty Start Date End Date Joaquina Morales CNP [address] [place] [id number] PCP - General Family Medicine 03/23/23 Team Status: Active Member Role/Relationship Status Dates Joaquina Bridenthal , TRAINING DEVELOPMENT SPECIALIST-C Primary Care Provider Active Team Status: Inactive Member Role/Relationship Status Dates Joaquina Bridenthal , TRAINING DEVELOPMENT SPECIALIST-C Primary Care Provider Active Start: September 11, 2024 End: September 11, 2024 Joaquina Jonathanenthal , TRAINING DEVELOPMENT SPECIALIST-C Referring Provider Active Start: September 11, 2024 End: September 11, 2024 Dr. Isaura Song , Attending Provider Activ e Start: September 11, 2024 End: September 11, 2024 Team Status: Inactive Member Role/Relationship Status Dates Joaquinazeinab Morales , TRAINING DEVELOPMENT SPECIALIST-C Primary Care Provider Active Start: October 02, 2024 End: October 02, 2024 Dr. Benito Terry DO Attending Provider Active Start : October 02, 2024 End: October 02, 2024 Dr. Benito Terry , Emergency Provider Active Start : October 02, 2024 End: October 02, 2024 Team Status: Inactive Member Role/Relationship Status Dates Joaquina Morales , TRAINING DEVELOPMENT SPECIALIST-C Primary Care Provider Active Start: October 11, 2024 End: October 11, 2024 Joaquina Morales , TRAINING DEVELOPMENT SPECIALIST-C Referring Provider Active Start: October 11, 2024 End: October 11, 2024 Kristina Cruz NP-C Attending Provider Active Start: October 11, 2024 End: October 11, 2024 Team Status: Inactive Member Role/Relationship Status Dates Joaquinazeinab Morales , TRAINING DEVELOPMENT SPECIALIST-C Primary Care Provider Active Start: November 10, 2024 End: November 10, 2024 Dr. Isaura Song , Attending Provider Activ e Start: November 10, 2024 End: November 10, 2024 Dr. Isaura Song , Referring Provider Activ e Start: November 10, 2024 End: November 10, 2024 INFORMATION SOURCE (unrecogn ized section and content) DATE CREATED AUTHOR 12/06/2023 [facility] DATE CREATED AUTHOR AUTHOR'S ORGANIZ ATION 11/04/2024 [facility] DATE CREATED AUTHOR AUTHOR'S ORGANIZ ATION 12/29/2024 [facility] Goals (unrecognized section and content) Goals may be documented in a n alternate section FOR RECORDS PERTAINING TO PATIENTS WHO ARE [...] BE BASED ON THE PRIMARY CLINICAL RECORDS. [employer] provides no warranty or guarantee of the accuracy or completeness of information in this document.
[2024-12-29 09:39] LABS: hCG Titer Quant., Serum 828 mIU/mL (<9 non-preg)
[2024-12-30 06:38] LABS: PROGESTERONE 14.3 ng/mL (.)
== END | disposition home or self-care (01) ==
LOC: LAB 08:35
PROVIDERS: PCP Nurse Practitioner Family; Referring Provider Obstetrics & Gynecology; Visit Provider Obstetrics & Gynecology
DX: N97.0 Female infertility associated with anovulation (principal); Z87.59 Personal history of other complications of pregnancy, childbirth and the puerperium
CPT/HCPCS: 36415; 84144; 84702

== ENCOUNTER → 2025-01-10 | Outpatient (CLI) | payer BC, SELFPAY ==
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
== END | disposition home or self-care (01) ==
PROVIDERS: PCP Nurse Practitioner Family; Referring Provider Obstetrics & Gynecology; Visit Provider Obstetrics & Gynecology
DX: Z36.87 Encounter for antenatal screening for uncertain dates (principal)
CPT/HCPCS: 76817

== ENCOUNTER → 2025-01-22 | Outpatient (CLI) | payer BC, SELFPAY ==
--- OUTSIDE RECORDS SUMMARY | 2024-10-31 11:46 | XMS RPT_ITS ---
Author Name Auto Generated Organization [facility] Care Team Providers Care Rn Pediatric Icu Name Role Phone JOAQUINA MORALES Primary Care Unavail able ELO DONNELLY Attending Unavailable PROBLEMS DATE TYPE CONDITION / CODE ATTENDING STATUS [facility] 10/31/2024 Active Contact dermatit is, unspecified contact dermatitis type, unspecified trigger / L25.9(ICD-10) ELO DONNELLY Active [facility] PROCEDURES No Procedure Records Found RESULTS PROGRESS Observed: 10/31/2024 11:53 AM Status: COMPLETED Source: [facility] HNO ID: [id number] Author: ELO DONNELLY PA-C Service: ? Author Type: Physician Diesel Mechanic Type: Progress Notes Filed: 10/31/2024 13:10 Note Text: PATIENT NAME: Elo Machado DATE OF : 1995 TODAYS' DATE: 10/31/2024 Surgical mask and gloves worn for all in-person care. SUBJECTIVE: Patient presents with: Rash: Rash on forearms/chin, left ankle, possible poison gwendolyn, has tried benadryl anti-itch lotion and extreme poison Gwendolyn AND oak scrub, HPI per the patient. History of Present Illness: This is a 29 year old with a PMHx of anxiety, depression, and PCOS that is here today for treatment of a new rash itchy rash to the bilateral arms this week. They have been using Benadryl cream and OTC topical plant creams, but she keeps finding more spots. Denies viral or prodromal sick symptoms. No sore throat. No other sick symptoms. Patient denies CEBALLOS, dizziness, fever, chills, sweats, facial swelling, throat swelling, any other swelling, cough, wheezing, SOB, increased WOB, chest pain, hives, or any other sign of systemic reaction. Patient denies any changes in foods, drinks, oral intake, medications, soaps, detergents, body products, pets, or outside exposures. Chart review: PMHx anxiety, depression, and PCOS Pain on scale of 0-10 with 0 being no pain and 10 being greatest pain: 0 Self-treatment:. See HPI Barriers to learning: none. Reviewed meds, OTCs, herbals or supplements. Reviewed allergies, medications, social history, and past medical history. Allergies: Allergies: Grass Pollen Other: See Comments Seasonal Allergies Other: See Comments Comment:Weeds Trees Other: See Comments ALLERGIES Grass Pollen, Seasonal Allergies, and Trees Past Medical History: PAST MEDICAL HISTORY Diagnosis Date Exertional asthma 07/28/2011 Generalized anxiety disorder IFG (impaired fasting glucose) 05/18/2023 Medial meniscus tear 07/28/2011 PCOS (polycystic ovarian syndrome) 2021 Unspecified otitis media Recurrent otitis Vocal cord dysfunction 09/07/2011 Past Surgical History: PAST SURGICAL HISTORY Procedure Laterality Date ANKLE ARTHROSCOPY Right 10/28/15 Dr. Fu Family History: FAMILY HISTORY Problem Relation Age of Onset other (Other [Other]) Paternal Grandfather leukemia Cancer Maternal Grandmother breast Asthma Sister Tobacco History: Tobacco Use: Never Medications: Current Outpatient Medications Medication Sig Dispense Refill Desogestrel-Ethinyl Estradiol (APRI) 0.15-0.03 mg per tablet Take 1 tablet by mouth once daily. 84 tablet 3 metFORMIN (GLUCOPHAGE) 500 mg tablet Take 2 tablets by mouth two times a day with meals. 360 tablet 0 buPROPion XL (WELLBUTRIN XL) 150 mg 24 hr tablet Take 150 mg by mouth every morning. PNV/iron/folic acid ( HFBYCFG-LWON-DZ ORAL) Take 1 tablet by mouth once daily. albuterol HFA (PROVENTIL HFA, VENTOLIN HFA) 90 mcg/actuation inhaler Inhale 2 Puffs as instructed every 4 hours as needed. 1 Inhaler 0 No current facility-administered medications for this visit. Medications and allergies reviewed by this provider. Social history Social History Tobacco Use Smoking status: Never Smokeless tobacco: Never Vaping Use Vaping status: Never Used Substance Use Topics Alcohol use: Yes Drug use: No REVIEW OF SYSTEMS Review of Systems Constitutional: Negative. HENT: Negative. Eyes: Negative. Respiratory: Negative. Cardiovascular: Negative. Gastrointestinal: Negative. Endocrine: Negative. Genitourinary: Negative. Musculoskeletal: Negative. Skin: Positive for rash. Allergic/Immunologic: Negative. Neurological: Negative. Hematological: Negative. Psychiatric/Behavioral: Negative. All other systems reviewed and are negative. Vitals: BP 127/83 (BP Site: Right Arm, BP Position: Sitting, BP Cuff Size: Regular Adult) Pulse 104 Temp 36.8 ?C (98.3 ?F) (Left Tympanic) Resp 18 Ht 162.6 cm (5' 4) Wt 78.2 kg (172 lb 6.4 oz) LMP 04/26/2023 SpO2 98% BMI 29.59 kg/m? Physical Exam: Physical Exam Vitals reviewed. Constitutional: General: She is not in acute distress. Appearance: Normal appearance. She is well-developed and normal weight. She is not ill-appearing, toxic-appearing or diaphoretic. HENT: Head: Normocephalic and atraumatic. Mouth/Throat: Lips: Davis. No lesions. Mouth: No oral lesions. Dentition: No gum lesions. Tongue: No lesions. Tongue does not deviate from midline. Palate: No mass and lesions. Pharynx: Oropharynx is clear. Uvula midline. No pharyngeal swelling, oropharyngeal exudate, posterior oropharyngeal erythema, uvula swelling or postnasal drip. Tonsils: No tonsillar exudate or tonsillar abscesses. Cardiovascular: Rate and Rhythm: Normal rate and regular rhythm. Heart sounds: Normal heart sounds. Pulmonary: Effort: Pulmonary effort is normal. Breath sounds: Normal breath sounds and air entry. Lymphadenopathy: Head: Right side of head: No submental, submandibular, tonsillar, preauricular or posterior auricular adenopathy. Left side of head: No submental, submandibular, tonsillar, preauricular or posterior auricular adenopathy. Skin: General: Skin is warm. Capillary Refill: Capillary refill takes less than 2 seconds. Findings: No abrasion, abscess, acne, burn, signs of injury, laceration, lesion, petechiae or rash. Comments: Papular -vesicular rash to the bilateral forearms. Neurological: General: No focal deficit present. Mental Status: She is alert and oriented to person, place, and time. Cranial Nerves: Cranial nerves 2-12 are intact. No cranial nerve deficit or facial asymmetry. Sensory: Sensation is intact. Psychiatric: Behavior: Behavior is cooperative. ASSESSMENT/PLAN: 1. Contact dermatitis, unspecified contact dermatitis type, unspecified trigger - ICD9: 692.9, ICD10: L25.9 - PREDNISONE 10 MG TABLET - TRIAMCINOLONE ACETONIDE 0.1 % TOPICAL CREAM May use OTC Zyrtec in AM or benadryl in PM as needed for itching Keep rash clean and dry. Allow to dry out. Do not scratch Monitor for signs of infection- more red, swollen, painful, hot, red streaking, fever, etc- seek further medical evaluation. - See patient instructions for further recommendations. - Pt education along with discharge instructions given to pt - Pt agreeable with plan and verbalizes understanding. - Follow up with PCP if symptoms worsen or do not improve in the next 2-3 days. - Discussed Red Flag signs and when to go to ER. - If symptoms worsen, or new symptoms develop go to ER. - If you have worsening of breathing or breathing changes- go to ER. - If you have persistent fever unrelieved by Tylenol/Motrin- go to the ER. Elo Donnelly PA-C 11:53 AM 10/31/24 History and Record Review External record(s) reviewed: prior outpatient record and CareEverywhere. Findings from review of outpatient records: PMHx anxiety, depression, and PCOS Findings from review of CareEverywhere records: PMHx anxiety, depression, and PCOS Differential Diagnoses - Contact dermatitis, unspecified contact dermatitis type, unspecified trigger is more likely for the following reason(s): suggested by HANDP - Shingles is less likely for the following reason(s): HANDP not suggestive - Viral exanthem is less likely for the following reason(s): HANDP not suggestive Disposition The patient was discharged. OTC Medications were advised: May use OTC Zyrtec in AM or benadryl in PM as needed for itching Medical Decision Making: Problems: Moderate: New problem with uncertain prognosis Data: Unique source(s) for external note(s) reviewed: 1 Risk: Moderate: Moderate risk from testing/treatment and Drug management Medical Decision Making Level: 4 - Moderate I spent a total of 20 minutes on the date of the service which included preparing to see the patient, [id number] patient care, completing clinical documentation, obtaining and/or reviewing separately obtained history, performing a medically appropriate examination, counseling and educating the patient/family/caregiver, ordering medications, tests, or procedures, and communicating results to the patient/family/caregiver. CNOV Observed: 10/31/2024 11:50 AM Status: COMPLETED Source: [facility] Office Visit ([place]) ELO MACHADO Dat ([id number]) 1995 F Date Time Provider Department 10/31/24 11:50 AM ELO DONNELLY During your visit today, we recorded the following information about you: Temperature Pulse Respiration Blood pressure 98.3 degrees 104/minute 18/minute 127/83 Weight Height 78.2 kg 1.626 m Elo Donnelly PA-C 10/31/2024 1:10 PM Signed PATIENT NAME: Elo Machado DATE OF : 1995 TODAYS' DATE: 10/31/2024 Surgical mask and gloves worn for all in-person care. SUBJECTIVE: Patient presents with: Rash: Rash on forearms/chin, left ankle, possible poison gwendolyn, has tried benadryl anti-itch lotion and extreme poison Gwendolyn AND oak scrub, HPI per the patient. History of Present Illness: This is a 29 year old with a PMHx of anxiety, depression, and PCOS that is here today for treatment of a new rash itchy rash to the bilateral arms this week. They have been using Benadryl cream and OTC topical plant creams, but she keeps finding more spots. Denies viral or prodromal sick symptoms. No sore throat. No other sick symptoms. Patient denies CEBALLOS, dizziness, fever, chills, sweats, facial swelling, throat swelling, any other swelling, cough, wheezing, SOB, increased WOB, chest pain, hives, or any other sign of systemic reaction. Patient denies any changes in foods, drinks, oral intake, medications, soaps, detergents, body products, pets, or outside exposures. Chart review: PMHx anxiety, depression, and PCOS Pain on scale of 0-10 with 0 being no pain and 10 being greatest pain: 0 Self-treatment:. See HPI Barriers to learning: none. Reviewed meds, OTCs, herbals or supplements. Reviewed allergies, medications, social history, and past medical history. Allergies: Allergies: Grass Pollen Other: See Comments Seasonal Allergies Other: See Comments Comment:Weeds Trees Other: See Comments ALLERGIES Grass Pollen, Seasonal Allergies, and Trees Past Medical History: PAST MEDICAL HISTORY Diagnosis Date Exertional asthma 07/28/2011 Generalized anxiety disorder IFG (impaired fasting glucose) 05/18/2023 Medial meniscus tear 07/28/2011 PCOS (polycystic ovarian syndrome) 2021 Unspecified otitis media Recurrent otitis Vocal cord dysfunction 09/07/2011 Past Surgical History: PAST SURGICAL HISTORY Procedure Laterality Date ANKLE ARTHROSCOPY Right 10/28/15 Dr. Fu Family History: FAMILY HISTORY Problem Relation Age of Onset other (Other [Other]) Paternal Grandfather leukemia Cancer Maternal Grandmother breast Asthma Sister Tobacco History: Tobacco Use: Never Medications: Current Outpatient Medications Medication Sig Dispense Refill Desogestrel-Ethinyl Estradiol (APRI) 0.15-0.03 mg per tablet Take 1 tablet by mouth once daily. 84 tablet 3 metFORMIN (GLUCOPHAGE) 500 mg tablet Take 2 tablets by mouth two times a day with meals. 360 tablet 0 buPROPion XL (WELLBUTRIN XL) 150 mg 24 hr tablet Take 150 mg by mouth every morning. PNV/iron/folic acid ( FDPLOYC-CPAG-KE ORAL) Take 1 tablet by mouth once daily. albuterol HFA (PROVENTIL HFA, VENTOLIN HFA) 90 mcg/actuation inhaler Inhale 2 Puffs as instructed every 4 hours as needed. 1 Inhaler 0 No current facility-administered medications for this visit. Medications and allergies reviewed by this provider. Social history Social History Tobacco Use Smoking status: Never Smokeless tobacco: Never Vaping Use Vaping status: Never Used Substance Use Topics Alcohol use: Yes Drug use: No REVIEW OF SYSTEMS Review of Systems Constitutional: Negative. HENT: Negative. Eyes: Negative. Respiratory: Negative. Cardiovascular: Negative. Gastrointestinal: Negative. Endocrine: Negative. Genitourinary: Negative. Musculoskeletal: Negative. Skin: Positive for rash. Allergic/Immunologic: Negative. Neurological: Negative. Hematological: Negative. Psychiatric/Behavioral: Negative. All other systems reviewed and are negative. Vitals: BP 127/83 (BP Site: Right Arm, BP Position: Sitting, BP Cuff Size: Regular Adult) Pulse 104 Temp 36.8 ?C (98.3 ?F) (Left Tympanic) Resp 18 Ht 162.6 cm (5' 4) Wt 78.2 kg (172 lb 6.4 oz) LMP 04/26/2023 SpO2 98% BMI 29.59 kg/m? Physical Exam: Physical Exam Vitals reviewed. Constitutional: General: She is not in acute distress. Appearance: Normal appearance. She is well-developed and normal weight. She is not ill-appearing, toxic-appearing or diaphoretic. HENT: Head: Normocephalic and atraumatic. Mouth/Throat: Lips: Davis. No lesions. Mouth: No oral lesions. Dentition: No gum lesions. Tongue: No lesions. Tongue does not deviate from midline. Palate: No mass and lesions. Pharynx: Oropharynx is clear. Uvula midline. No pharyngeal swelling, oropharyngeal exudate, posterior oropharyngeal erythema, uvula swelling or postnasal drip. Tonsils: No tonsillar exudate or tonsillar abscesses. Cardiovascular: Rate and Rhythm: Normal rate and regular rhythm. Heart sounds: Normal heart sounds. Pulmonary: Effort: Pulmonary effort is normal. Breath sounds: Normal breath sounds and air entry. Lymphadenopathy: Head: Right side of head: No submental, submandibular, tonsillar, preauricular or posterior auricular adenopathy. Left side of head: No submental, submandibular, tonsillar, preauricular or posterior auricular adenopathy. Skin: General: Skin is warm. Capillary Refill: Capillary refill takes less than 2 seconds. Findings: No abrasion, abscess, acne, burn, signs of injury, laceration, lesion, petechiae or rash. Comments: Papular -vesicular rash to the bilateral forearms. Neurological: General: No focal deficit present. Mental Status: She is alert and oriented to person, place, and time. Cranial Nerves: Cranial nerves 2-12 are intact. No cranial nerve deficit or facial asymmetry. Sensory: Sensation is intact. Psychiatric: Behavior: Behavior is cooperative. ASSESSMENT/PLAN: 1. Contact dermatitis, unspecified contact dermatitis type, unspecified trigger - ICD9: 692.9, ICD10: L25.9 - PREDNISONE 10 MG TABLET - TRIAMCINOLONE ACETONIDE 0.1 % TOPICAL CREAM May use OTC Zyrtec in AM or benadryl in PM as needed for itching Keep rash clean and dry. Allow to dry out. Do not scratch Monitor for signs of infection- more red, swollen, painful, hot, red streaking, fever, etc- seek further medical evaluation. - See patient instructions for further recommendations. - Pt education along with discharge instructions given to pt - Pt agreeable with plan and verbalizes understanding. - Follow up with PCP if symptoms worsen or do not improve in the next 2-3 days. - Discussed Red Flag signs and when to go to ER. - If symptoms worsen, or new symptoms develop go to ER. - If you have worsening of breathing or breathing changes- go to ER. - If you have persistent fever unrelieved by Tylenol/Motrin- go to the ER. Elo Donnelly PA-C 11:53 AM 10/31/24 History and Record Review External record(s) reviewed: prior outpatient record and CareEverywhere. Findings from review of outpatient records: PMHx anxiety, depression, and PCOS Findings from review of CareEverywhere records: PMHx anxiety, depression, and PCOS Differential Diagnoses - Contact dermatitis, unspecified contact dermatitis type, unspecified trigger is more likely for the following reason(s): suggested by HANDP - Shingles is less likely for the following reason(s): HANDP not suggestive - Viral exanthem is less likely for the following reason(s): HANDP not suggestive Disposition The patient was discharged. OTC Medications were advised: May use OTC Zyrtec in AM or benadryl in PM as needed for itching Medical Decision Making: Problems: Moderate: New problem with uncertain prognosis Data: Unique source(s) for external note(s) reviewed: 1 Risk: Moderate: Moderate risk from testing/treatment and Drug management Medical Decision Making Level: 4 - Moderate I spent a total of 20 minutes on the date of the service which included preparing to see the patient, [id number] patient care, completing clinical documentation, obtaining and/or reviewing separately obtained history, performing a medically appropriate examination, counseling and educating the patient/family/caregiver, ordering medications, tests, or procedures, and communicating results to the patient/family/caregiver. Elo Donnelly PA-C 10/31/2024 12:10 PM Signed ASSESSMENT/PLAN: 1. Contact dermatitis, unspecified contact dermatitis type, unspecified trigger - - PREDNISONE 10 MG TABLET - TRIAMCINOLONE ACETONIDE 0.1 % TOPICAL CREAM May use OTC Zyrtec in AM or benadryl in PM as needed for itching Keep rash clean and dry. Allow to dry out. Do not scratch Monitor for signs of infection- more red, swollen, painful, hot, red streaking, fever, etc- seek further medical evaluation. - See patient instructions for further recommendations. - Pt education along with discharge instructions given to pt - Pt agreeable with plan and verbalizes understanding. - Follow up with PCP if symptoms worsen or do not improve in the next 2-3 days. - Discussed Red Flag signs and when to go to ER. - If symptoms worsen, or new symptoms develop go to ER. - If you have worsening of breathing or breathing changes- go to ER. - If you have persistent fever unrelieved by Tylenol/Motrin- go to the ER. Elo Donnelly PA-C 11:53 AM 10/31/24 Allergies As of Date: 10/31/2024 Noted Allergy Reaction GRASS POLLEN 08/23/2012 14 - Other: See Comments SEASONAL ALLERGIES 08/23/2012 14 - Other: See Comments Comments: Weeds TREES 08/23/2012 14 - Other: See Comments Date Reviewed: 10/31/2024 Reviewed by: Christopher Alves MA - Fully Assessed Reason for Visit: Rash [1087] Cmt: Rash on forearms/chin, left ankle, possible poison gwendolyn, has tried benadryl anti-itch lotion and extreme poison Gwendolyn AND oak scrub, Primary Visit Diagnosis:Contact dermatitis, unspecified contact dermatitis type, unspecified trigger [L25.9] Order(s):predniSONE (DELTASONE) 10 mg tabletTake 4 tabs (40mg) once daily x 3 days, then 3 tabs (30mg) x 3 days, then 2 tabs (20mg) x 3 days, then 1 tab (10mg) x 3 daysDisp: 30 tabletRfl: 0 triamcinolone acetonide (KENALOG) 0.1 % creamApply 1 application to affected area two times a day.Disp: 80 gRfl: 0 Prescriptions as of 10/31/2024 - sertraline (ZOLOFT) 100 mg tablet take 1 and 1/2 tablets by mouth daily for a total of 150mg - medroxyPROGESTERone (PROVERA) 5 mg tablet 5 mg. - letrozole (FEMARA) 2.5 mg tablet TAKE 1 TABLET BY MOUTH DAILY ON CYCLE DAYS 3 THROUGH 7 - predniSONE (DELTASONE) 10 mg tablet Take 4 tabs (40mg) once daily x 3 days, then 3 tabs (30mg) x 3 days, then 2 tabs (20mg) x 3 days, then 1 tab (10mg) x 3 days - triamcinolone acetonide (KENALOG) 0.1 % cream Apply 1 application to affected area two times a day. - PNV/iron/folic acid ( NHJSWGK-VELO-GO ORAL) Take 1 tablet by mouth once daily. - albuterol HFA (PROVENTIL HFA, VENTOLIN HFA) 90 mcg/actuation inhaler Inhale 2 Puffs as instructed every 4 hours as needed. Problem List As Of Date 10/31/2024 Noted Resolved Vocal cord dysfunction [J38.3] 09/07/2011 Posterior tibial tendonitis [M76.829] 11/27/2012 11/12/2014 Achilles tendinitis [M76.60] 11/27/2012 11/12/2014 Elevated prolactin level [R79.89] 12/02/2021 Hirsutism [L68.0] 12/02/2021 PCOS (polycystic ovarian syndrome) [E28.2] 05/18/2023 Elevated LDL cholesterol level [E78.00] 05/18/2023 Anxiety and depression [F41.9, F32.A] 07/14/2023 History of bulimia [Z86.59] 07/14/2023 History of anorexia nervosa [Z86.59] 07/14/2023 Overweight with body mass index (BMI) of 29 to *07/14/2023 Other instructions from your clinician: ASSESSMENT/PLAN: 1. Contact dermatitis, unspecified contact dermatitis type, unspecified trigger - - PREDNISONE 10 MG TABLET - TRIAMCINOLONE ACETONIDE 0.1 % TOPICAL CREAM May use OTC Zyrtec in AM or benadryl in PM as needed for itching Keep rash clean and dry. Allow to dry out. Do not scratch Monitor for signs of infection- more red, swollen, painful, hot, red streaking, fever, etc- seek further medical evaluation. - See patient instructions for further recommendations. - Pt education along with discharge instructions given to pt - Pt agreeable with plan and verbalizes understanding. - Follow up with PCP if symptoms worsen or do not improve in the next 2-3 days. - Discussed Red Flag signs and when to go to ER. - If symptoms worsen, or new symptoms develop go to ER. - If you have worsening of breathing or breathing changes- go to ER. - If you have persistent fever unrelieved by Tylenol/Motrin- go to the ER. Elo Donnelly PA-C 11:53 AM 10/31/24 Prescriptions ordered this encounter Disp Refills Start End PREDNISONE 10 MG TABLET 30 t* 0 10/31/2024 Sig: Take 4 tabs (40mg) once daily x 3 days, then 3 tabs (30mg) x 3 days, then 2 tabs (20mg) x 3 days, then 1 tab (10mg) x 3 days TRIAMCINOLONE ACETONIDE 0.1 % TOPICA* 80 g 0 10/31/2024 Route: TOP Sig: Apply 1 application to affected area two times a day. Medications Discontinued During This Encounter Prescriptions - buPROPion XL (WELLBUTRIN XL) 150 mg 24 hr tablet (Discontinued) Reported on 10/31/2024 - Desogestrel-Ethinyl Estradiol (APRI) 0.15-0.03 mg per tablet (Discontinued) Reported on 10/31/2024 - metFORMIN (GLUCOPHAGE) 500 mg tablet (Discontinued) Reported on 10/31/2024 Letter Text Encounter Status:Closed by ELO DONNELLY on 10/31/24 ALLERGIES DATE TYPE / CODE NAME / CODE REACTION SEVERITY SOURCE 08/23/2012 DRUG INGREDI/[id number] 003(SNOMED CT) GRASS POLLEN OTHER: SEE [facility] 08/23/2012 Environ/[id number] 006(SNOMED CT) SEASONAL ALLERGIES OTHER: SEE [facility] 08/23/2012 Environ/[id number] 006(SNOMED CT) TREES OTHER: SEE [facility] ENCOUNTERS ADMIT/DISCHARGE ACCOUNT NUMBER ADMITTING ENCOUNTER CLASS LOC ATION SOURCE 10/31/2024/ 5 [id number] Ambulatory [facility] HospitalBuild ing:NITHYA [facility] PAYERS ENCOUNTER GUARANTOR PAYER SUBSCRIBER SOURCE 10/31/2024 Primary Insurance:[employer] PPOPolicy Number: [id number] Date:[id number] Name:Constantino MONTANO: [id number] [place] [address] [facility]
[2025-01-24 11:08] LABS: Chlamydia By Nucleic Acid AMP Negative (Negative); Gonococcus By Nucleic Acid AMP Negative (Negative)
== END | disposition home or self-care (01) ==
LOC: LABSPEC 10:50
PROVIDERS: Visit Provider Obstetrics & Gynecology
DX: O09.90 Supervision of high risk pregnancy, unspecified, unspecified trimester (principal); O99.210 Obesity complicating pregnancy, unspecified trimester; Z3A.00 Weeks of gestation of pregnancy not specified
CPT/HCPCS: 87086; 87088; 87491; 87591

== ENCOUNTER 2025-01-28 13:26 | Emergency (ER) | payer BC, SELFPAY ==
[2025-01-28 13:26] VITALS: BP 139/82; PULSE 92; RESP 14; TEMP 36.1; O2SAT 98; BMI 30.8
[2025-01-28 14:00] VITALS: BP 130/84; PULSE 75; RESP 14; O2SAT 98
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
[2025-01-28 16:18] VITALS: BP 120/78; PULSE 75; RESP 14; TEMP 36.4; O2SAT 98
== END 2025-01-28 16:19 | disposition home or self-care (01) ==
PROVIDERS: Emergency Provider Student in an Organized Health Care Education/Training Program; PCP Nurse Practitioner Family; Visit Provider Student in an Organized Health Care Education/Training Program
DX: O99.891 Other specified diseases and conditions complicating pregnancy (principal); M54.2 Cervicalgia; R51.9 Headache, unspecified; Z3A.09 9 weeks gestation of pregnancy; V43.52XA Car driver injured in collision with other type car in traffic accident, initial encounter
CPT/HCPCS: 70450; 72125; 76817; 99282

== ENCOUNTER → 2025-02-04 | Outpatient (CLI) | payer BC, SELFPAY ==
[2025-02-04 09:07] LABS: Hematocrit 38.6 % (37-47); Hemoglobin 13.3 g/dL (12.0-15.0); Immature Granulocytes Count 0.030 X10^3/uL (0.0-0.0); Mean Corp Hgb Conc 34.5 g/dL (32-36); Mean Corpuscular Volume 84.5 fL (81-99); Mean Platelet Vol. 11.1 fl (6.2-12.0); NRBC Flagged by Analyzer 0 % (0-5); Platelet Count 311 K/mm3 (150-450); RBC Distribution Width CV 12.4 % (11.6-14.6); RBC Distribution Width SD 37.6 fl (35.1-43.9); Red Blood Count 4.57 M/mm3 (4.2-5.4); White Blood Count 10.4 K/mm3 (4.4-11.0)
[2025-02-04 10:10] LABS: HIV Nonreactive (Nonreactive); Hepatitis B Surface Antigen Nonreactive (Nonreactive); Hepatitis C Antibody Nonreactive (Nonreactive); Syphilis Antibodies Nonreactive (Nonreactive)
== END | disposition home or self-care (01) ==
PROVIDERS: PCP Nurse Practitioner Family; Visit Provider Obstetrics & Gynecology
DX: O09.90 Supervision of high risk pregnancy, unspecified, unspecified trimester (principal); O99.210 Obesity complicating pregnancy, unspecified trimester; Z3A.00 Weeks of gestation of pregnancy not specified
CPT/HCPCS: 36415; 83036; 85025; 86703; 86762; 86780; 86803; 86850; 86900; 86901; 87340

== ENCOUNTER 2025-02-20 20:58 | Emergency (ER) | payer BC, SELFPAY ==
[2025-02-20 20:59] VITALS: BP 164/101; PULSE 109; RESP 20; TEMP 36.8; O2SAT 96; BMI 31.8
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
[2025-02-20 21:59] VITALS: BP 122/106; PULSE 90; RESP 18; TEMP 36.9; O2SAT 99
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
== END 2025-02-20 22:05 | disposition home or self-care (01) ==
PROVIDERS: Emergency Provider Emergency Medicine; PCP Nurse Practitioner Family; Visit Provider Emergency Medicine
DX: O9A.211 Injury, poisoning and certain other consequences of external causes complicating pregnancy, first trimester (principal); Z3A.13 13 weeks gestation of pregnancy; W50.1XXA Accidental kick by another person, initial encounter; Y92.009 Unspecified place in unspecified non-institutional (private) residence as the place of occurrence of the external cause
CPT/HCPCS: 99282